=== PATIENT | female | born 1955 | race Caucasian/White ===

== ENCOUNTER → 2019-08-20 12:16 | Outpatient (BNVA) | payer MEDICARE, SELFPAY | PROVIDERS: Visit Provider Nurse Practitioner Family | DX: I48.91 Unspecified atrial fibrillation (principal) | CPT/HCPCS: 85610 ==

== ENCOUNTER → 2019-08-29 11:52 | Outpatient (BNVA) | payer MEDICARE, SELFPAY | PROVIDERS: Visit Provider Nurse Practitioner Family | DX: I10 Essential (primary) hypertension (principal); J32.9 Chronic sinusitis, unspecified; R53.1 Weakness; E78.5 Hyperlipidemia, unspecified; F32.9 Major depressive disorder, single episode, unspecified; I25.10 Atherosclerotic heart disease of native coronary artery without angina pectoris; I48.91 Unspecified atrial fibrillation; Z79.01 Long term (current) use of anticoagulants; Z12.31 Encounter for screening mammogram for malignant neoplasm of breast; Z12.11 Encounter for screening for malignant neoplasm of colon; Z98.61 Coronary angioplasty status; Z98.890 Other specified postprocedural states; Z79.899 Other long term (current) drug therapy | CPT/HCPCS: 80053; 80061; 83036; 85025; 87804; G0328 ==

== ENCOUNTER → 2019-09-20 16:18 | Outpatient (BNVA) | payer MEDICARE, SELFPAY | PROVIDERS: Visit Provider Nurse Practitioner Family | DX: R05 Cough (principal); R09.89 Other specified symptoms and signs involving the circulatory and respiratory systems | CPT/HCPCS: 71046; 85025; 87400 ==

== ENCOUNTER → 2019-10-09 10:35 | Outpatient (BNVA) | payer MEDICARE, SELFPAY | PROVIDERS: Visit Provider Internal Medicine Cardiovascular Disease | DX: Z98.890 Other specified postprocedural states (principal) | CPT/HCPCS: 85610 ==

== ENCOUNTER → 2019-12-18 16:40 | Outpatient (BNVA) | payer MEDICARE, SELFPAY | PROVIDERS: Visit Provider Internal Medicine Cardiovascular Disease | DX: I10 Essential (primary) hypertension (principal); I25.10 Atherosclerotic heart disease of native coronary artery without angina pectoris | CPT/HCPCS: 80048; 83880 ==

== ENCOUNTER 2019-12-23 15:24 | Emergency (ER) | payer MEDICARE, SELFPAY ==
--- NOTE | 2019-12-23 | CTR_ITS ---
PROCEDURE INFORMATION: Exam: CT Angiography Chest With Contrast Exam date and time: 12/23/2019 6:11 PM Age: 76 years old Clinical indication: Shortness of breath; Chest pain; Type not specified; Prior surgery; Surgery date: 6+ months TECHNIQUE: Imaging protocol: Computed tomographic angiography of the chest with intravenous contrast. 3D rendering: MIP and/or 3D reconstructed images were created by the technologist. Radiation optimization: All CT scans at this facility use at least one of these dose optimization techniques: automated exposure control; mA and/or kV adjustment per patient size (includes targeted exams where dose is matched to clinical indication); or iterative reconstruction. Contrast material: OMNI 350; Contrast volume: 67 ml; Contrast route: IV; COMPARISON: No relevant prior studies available. RADIATION DOSE METRICS: Total DLP: 531.58 mGy-cm FINDINGS: Pulmonary arteries: Normal. No pulmonary emboli. Aorta: Unremarkable. No aortic aneurysm. No aortic dissection. Lungs: Paraseptal emphysema. Fibrosis in the lung apices and bases. Mild focal ground-glass opacity in the posterior right upper lobe.. Pleural space: Unremarkable. No pneumothorax. No pleural effusion. Heart: Unremarkable. No cardiomegaly. No pericardial effusion. Lymph nodes: Prominent middle mediastinal and bilateral hilar lymph nodes. The largest lymph node measures 1.7 cm in short axis, in the AP window region. Bones/joints: Median sternotomy changes. Mild degenerative endplate changes in the thoracic spine. No compression fracture. Soft tissues: Unremarkable. Dictated By:Baldomero Morrison Signed By: Signed Date/Time: DD/ 1838 DANNY
[2019-12-23 15:51] VITALS: BP 102/73; PULSE 94; RESP 17; TEMP 36.7; O2SAT 95; BMI 23.3
--- NOTE | 2019-12-23 15:58 | ED_ITS ---
Documented by User: Dioni Montalvo DO 12/25/19 14:50 HPI - SOB/Dyspnea General: Chief Complaint: Shortness of Breath/Dyspnea Stated Complaint: swelling Time Seen by Provider: 12/23/19 15:57 History of Present Illness: HPI Narrative: 64 yo female comes in complaining of generally feeling weak. She has a history of CHF she recently had her Lasix increased to 40 mg daily to 60 twice daily then to 80 twice daily she has not really got a lot of fluid output from that and is still having out significant orthopnea. She had 5 days ago had some lab work done which she states was normal but since then she began having the chest discomfort a nonproductive chest cough with it markedly increasing and progressively worsening orthopnea. She denies any fever sweats or chills or any other respiratory symptoms besides the orthopnea and a nonproductive cough. She is on warfarin. She denies any hematemesis coffee-ground emesis nausea vomiting diarrhea GI or symptoms at all. MD elicited complaint: shortness of breath and cough Pertinent past history: congestive heart failure Onset (ago): day(s) Context: occurred during exertion Timing: constant Severity: moderate Exacerbating factors: lying flat, exertion and coughing Relieving factors: oxygen, rest and upright position Known history of: congestive heart failure Associated symptoms: Reports cough and orthopnea; Deny abdominal pain, chest congestion, chest pain, diaphoresis, dizziness, extremity pain, fever(s), hemoptysis, lightheadedness, myalgias, nausea, palpitations or rash Treatment prior to arrival: oxygen and diuretics Review of Systems Const: Denies: fever(s) or diaphoresis ENMT: Denies: throat pain, ear or mastoid pain, nasal discharge or nasal congestion Card: Reports: orthopnea; Denies: chest pain, palpitations or lightheadedness Resp: Denies: hemoptysis or chest congestion GI: Denies: abdominal pain or nausea : Denies: flank pain, difficulty voiding, dysuria, urinary frequency or urinary urgency Musc: Denies: extremity pain Skin/Breast: Denies: rash or pruritus Neuro: Denies: dizziness [facility] ED PFSH: Medical History ASHD (arteriosclerotic heart disease) CHF (congestive heart failure) Depression Hyperlipidemia Hypertension PVD (peripheral vascular disease) Surgical History Hx of coronary angioplasty Hx of mitral valve repair Family History Family/Other Diabetes Cancer Heart disease Social History Smoking and tobacco status: current some day smoker cigarettes Packs smoked per day: 0.5 Years cigarettes smoked: 40 Second hand smoke exposure: No Alcohol intake: never Lives independently: Yes Marital status: Current occupational status: retired History of recent travel: No Current gender identity: Female Physical Exam Const: COMMON NORMALS: no acute distress GENERAL APPEARANCE: cooperative and comfortable ORIENTATION/CONSCIOUSNESS: Yes awake, Yes oriented to person, Yes oriented to place and Yes oriented to time HENMT: COMMON NORMALS: normocephalic, atraumatic, hearing grossly normal bilaterally, external ears normal, EAC's normal, TM's normal bilaterally, Normal nasal mucous membranes and turbinates present, moist oral mucous membranes and oropharynx normal HEAD & SCALP: normocephalic and atraumatic NOSE: Normal nasal mucous membranes and turbinates present EXTERNAL EAR: Yes external ears normal EXTERNAL AUDITORY CANAL: EAC's normal TYMPANIC MEMBRANE: TM's normal bilaterally Eye: COMMON NORMALS: Equal, round and reactive pupils present, EOMs intact bilaterally, conjunctivae normal and no scleral icterus CONJUNCTIVA: Yes conjunctivae normal PUPIL: Yes Equal, round and reactive pupils present Neck/C-Spine: COMMON NORMALS: full ROM, no lymphadenopathy, supple and no JVD Lymph: LYMPHATIC: no lymphadenopathy noted and no lymphedema noted Resp: AUSCULTATION: rales bilateral and localized (Bases) and diminished lung sounds Cardio: COMMON NORMALS: no JVD, regular rate, regular rhythm and No murmurs present (Cardio) RATE: regular rate RHYTHM: regular rhythm GI: COMMON NORMALS: Soft to palpation and No hepatosplenomegaly present AUSCULTATION: Yes normoactive bowel sounds PALPATION: Yes Soft to palpation, No Tenderness to palpation present (GI), No Guarding due to palpation present (GI) and Yes No hepatosplenomegaly present Extremity: OTHER: Edema of the lower extremities to the mid calf Neuro: SENSORIUM/ORIENTATION: Yes oriented to person, Yes oriented to place and Yes oriented to time Skin: COMMON NORMALS: no rashes or lesions noted GENERAL SKIN EXAM: no rashes or lesions noted Course Vital Signs: Vital signs: Vital Signs Temperature 98.1 F 12/23/19 15:51 Pulse Rate 75 12/23/19 21:29 Respiratory Rate 18 12/23/19 21:29 Blood Pressure 118/75 12/23/19 21:29 Pulse Oximetry 95 12/23/19 21:29 MDM - SOB/Dyspnea MDM Narrative: Medical decision making narrative: Turned over to Dr. Sam at change of shift labs are all pending she seems to be had some mild acute heart failure although she does not seem to be hypoxic and seems to be managing well I think there is a distinct possibility she may yet be able to go home. Lab Data: Labs: Lab Results 12/23/19 12/23/19 12/23/19 Range/Units 16:37 16:37 16:37 WBC 6.2 (4.0-10.0) 10^3/ uL RBC 4.93 (4.1-5.3) 10^6/u L Hgb 15.4 H (11.5-15.3) g/dL Hct 47.8 H (37.0-47.0) % MCV 97.0 (81-99) fL MCH 31.2 (28.0-34.0) pg MCHC 32.2 (30.0-36.0) g/dL RDW 14.6 (12.1-15.1) % Plt Count 335 (130-400) 10^3/c mm MPV 10.4 (7.4-10.4) fL Neut % (Auto) 61.0 % Lymph % (Auto) 25.2 % Clarke % (Auto) 10.4 % Eos % (Auto) 2.1 % Baso % (Auto) 1.0 % Neut # (Auto) 3.8 (1.8-7.7) 10^3/u L Lymph # (Auto) 1.6 (0.8-4.8) 10^3/u L Clarke # (Auto) 0.6 (0.2-0.9) 10^3/u L Eos # (Auto) 0.1 (0.0-0.8) 10^3/u L Baso # (Auto) 0.1 (0.0-0.1) 10^3/u L Nucleated RBC % (a uto) 0 % Nucleated RBCs # 0.0 /100WBC Sodium 132 L (136-145) mmol/L Potassium 4.9 (3.5-5.1) mmol/L Chloride 95 L (98-107) mmol/L Carbon Dioxide 24 (22-29) mmol/L Anion Gap 17.9 (5-19) BUN 22 (8-23) mg/dL Creatinine 1.0 H (0.5-0.9) mg/dL GFR Calculation 55.5 L (90-130) mL/min Glucose 108 (65-115) mg/dL Calculated Osmolal ity 271 L (285-295) mOsm/k g Calcium 10.1 (8.5-10.5) mg/dL Total Bilirubin 0.2 (0.15-1.2) mg/dL AST 16 (0-32) U/L ALT 14 (0-33) U/L Alkaline Phosphata se 147 H (35-105) IU/L Troponin T Baselin e 20 H (0-10) ng/L Troponin T 120 Min [place] (0-10) ng/L Delta Troponin T (0-10) ABS# NT-Pro-B Natriuret Pep 731 H (0-125) pg/mL Total Protein 8.8 H (6.6-8.7) g/dL Albumin 4.2 (3.5-5.2) g/dL Globulin 4.6 (1.3-4.6) g/dL Urine Color (Yellow) Urine Appearance (CLEAR) Urine pH (5-7) Ur Specific Gravit y (1.005-1.030) Urine Protein (Negative) Urine Glucose (UA) (Normal) Urine Ketones (Negative) Urine Blood (Negative) Urine Nitrate (Negative) Urine Bilirubin (NEGATIVE) Urine Urobilinogen (Negative) mg/dL Ur Leukocyte Arin ase (Negative) Urine RBC (0-2) /hpf Urine WBC (0-5) /hpf Ur Squamous Epith Cells (0-5) Urine Bacteria (NONE) 12/23/19 12/23/19 Range/Units 18:30 20:10 WBC (4.0-10.0) 10^3/ uL RBC (4.1-5.3) 10^6/u L Hgb (11.5-15.3) g/dL Hct (37.0-47.0) % MCV (81-99) fL MCH (28.0-34.0) pg MCHC (30.0-36.0) g/dL RDW (12.1-15.1) % Plt Count (130-400) 10^3/c mm MPV (7.4-10.4) fL Neut % (Auto) % Lymph % (Auto) % Clarke % (Auto) % Eos % (Auto) % Baso % (Auto) % Neut # (Auto) (1.8-7.7) 10^3/u L Lymph # (Auto) (0.8-4.8) 10^3/u L Clarke # (Auto) (0.2-0.9) 10^3/u L Eos # (Auto) (0.0-0.8) 10^3/u L Baso # (Auto) (0.0-0.1) 10^3/u L Nucleated RBC % (a uto) % Nucleated RBCs # /100WBC Sodium (136-145) mmol/L Potassium (3.5-5.1) mmol/L Chloride (98-107) mmol/L Carbon Dioxide (22-29) mmol/L Anion Gap (5-19) BUN (8-23) mg/dL Creatinine (0.5-0.9) mg/dL GFR Calculation (90-130) mL/min Glucose (65-115) mg/dL Calculated Osmolal ity (285-295) mOsm/k g Calcium (8.5-10.5) mg/dL Total Bilirubin (0.15-1.2) mg/dL AST (0-32) U/L ALT (0-33) U/L Alkaline Phosphata se (35-105) IU/L Troponin T Baselin e (0-10) ng/L Troponin T 120 Min [place] 20.27 H (0-10) ng/L Delta Troponin T 0.27 (0-10) ABS# NT-Pro-B Natriuret Pep (0-125) pg/mL Total Protein (6.6-8.7) g/dL Albumin (3.5-5.2) g/dL Globulin (1.3-4.6) g/dL Urine Color Yellow (Yellow) Urine Appearance Clear (CLEAR) Urine pH 5 (5-7) Ur Specific Gravit y 1.010 (1.005-1.030) Urine Protein Neg (Negative) Urine Glucose (UA) Norm (Normal) Urine Ketones Negative (Negative) Urine Blood Neg (Negative) Urine Nitrate Positive H (Negative) Urine Bilirubin Neg (NEGATIVE) Urine Urobilinogen Norm (Negative) mg/dL Ur Leukocyte Arin ase Negative (Negative) Urine RBC 0-4 H (0-2) /hpf Urine WBC None (0-5) /hpf Ur Squamous Epith Cells 0-4 H (0-5) Urine Bacteria 4+ H (NONE) Discharge Plan Discharge Patient Disposition: Home, Self-Care Clinical Impression: Acute UTI CHF (congestive heart failure) Qualifiers: Heart failure type: diastolic Heart failure chronicity: acute on chronic Qualified Code(s): I50.33 - Acute on chronic diastolic (congestive) heart failure Condition: Stable Prescriptions: New cefdinir 300 mg capsule 300 mg PO Q12H 10 Days Qty: 20 RF: 0 No Action albuterol sulfate 2.5 mg /3 mL (0.083 %) solution for nebulization 2.5 mg INHALATION Q4H PRN (Reason: Shortness Of Breath) RF: 0 amiodarone 200 mg tablet 200 mg PO DAILY RF: 0 metoprolol succinate 25 mg tablet extended release 24 hr 25 mg PO DAILY RF: 0 nitroglycerin 0.4 mg tablet, sublingual 0.4 mg SUBLINGUAL Q5M PRN (Reason: chest pain) RF: 0 ascorbate calcium (vitamin C) 500 mg tablet 1 gm PO DAILY RF: 0 cn-0-axt-epa-fish oil-vit D3 [Fish Oil-Vit D3] 300-1,000-1,000 mg-mg-unit capsule 1 cap PO DAILY RF: 0 citalopram 10 mg tablet 10 mg PO DAILY Qty: 90 RF: 1 simvastatin 40 mg tablet 40 mg PO DAILY Qty: 30 RF: 2 lisinopril 10 mg tablet 10 mg PO DAILY Qty: 30 RF: 2 isosorbide mononitrate 30 mg tablet extended release 24 hr 30 mg PO DAILY Qty: 90 RF: 0 Spiriva Respimat 2.5 mcg/actuation mist 2 inh INHALATION DAILY Qty: 4 RF: 5 metolazone 2.5 mg tablet 2.5 mg PO DAILY Qty: 60 RF: 3 potassium chloride [Klor-Con M20] 20 mEq tablet,ER particles/crystals 40 meq PO BID Qty: 60 RF: 3 furosemide 80 mg tablet 80 mg PO BID Qty: 60 RF: 6 Tylenol Extra Strength 500 mg Tablet 1,000 mg PO PRN RF: 0 Calcium 500 500 mg calcium (1,250 mg) Tablet 500 mg PO DAILY RF: 0 ranolazine 500 mg tablet extended release 12 hr 500 mg PO Q12H RF: 0 warfarin 1 mg tablet See Rx Instructions .ROUTE .COMPLEX RF: 0 zolpidem 10 mg tablet 10 mg PO BEDTIME PRN (Reason: Sleep) RF: 0 Discharge Orders: Discharge Order (Routine); Ordered 12/23/19 Ordered By: Davina Contreras Referrals: Adelaida Rizo MD [Physician] - (Follow-up with Dr. Nuñez on as scheduled.) Discharge Diet: Advance as tolerated Discharge Activity: Increase activity as tolerated Patient Instructions: Heart Failure (ED), Urinary Tract Infection in Women (ED) Activity Restrictions/Additional Instructions: Please return to the ER immediately for any of the signs or symptoms listed on your discharge instruction sheets, worsening/changing of your symptoms, you are not getting better as quickly as expected, or for ANY other cause or concerns. Be certain to take the metolazone prescribed you by Dr. Rojas but take it every other day until you see him in the office for recheck. Return to the ER for chest pain, increased shortness of breath, fever, vomiting, or for any other cause for concern. Discharge Date/Time: 12/23/19 21:30 Sign Out Sign Out Data: Patient Sign Out occurred on 12/23/19 at 19:22. Patient's care was discussed, and care was transferred from to Davina Contreras. Coding Level of Care Code ED Staffing Administrator for [facility] Documented by User: Davina Contreras 12/24/19 01:48 HPI - SOB/Dyspnea General: Chief Complaint: Shortness of Breath/Dyspnea Stated Complaint: swelling Time Seen by Provider: 12/23/19 15:57 PFSH ED PFSH: Medical History ASHD (arteriosclerotic heart disease) CHF (congestive heart failure) Depression Hyperlipidemia Hypertension PVD (peripheral vascular disease) Surgical History Hx of coronary angioplasty Hx of mitral valve repair Family History Family/Other Diabetes Cancer Heart disease Social History Smoking and tobacco status: current some day smoker cigarettes Packs smoked per day: 0.5 Years cigarettes smoked: 40 Second hand smoke exposure: No Alcohol intake: never Lives independently: Yes Marital status: Current occupational status: retired History of recent travel: No Current gender identity: Female Course Vital Signs: Vital signs: Vital Signs Temperature 98.1 F 12/23/19 15:51 Pulse Rate 75 12/23/19 21:29 Respiratory Rate 18 12/23/19 21:29 Blood Pressure 118/75 12/23/19 21:29 Pulse Oximetry 95 12/23/19 21:29 MDM - SOB/Dyspnea MDM Narrative: Medical decision making narrative: Case turned over to me at change of shift from Dr. Montalvo. Please see his notes for his history, physical exam and medical decision-making notes. Patient states she is feeling better since arrival. She saw Dr. Rojas on 12/20/2019 and talked with him about this increasing shortness of breath. He increased her Lasix to 60 mg twice daily and she called a few days later and he increased it to 80 mg twice daily. He did: Metolazone but the patient has yet to pick it up. She denies any chest pain. I did offer admission but she declines. I talked the case over with Dr. Dalton who wants the patient to take the metolazone every other day and she will be certain the patient gets in to see Dr. Rojas this week. In review of this plan the patient admits that she has an appointment to see Dr. Rojas on . She is happy to be going home and we will also treat her for her UTI. She does agree to return should her symptoms change or worsen. Here the patient's lungs were clear without crackles and her heart was slightly irregular but no major murmurs were auscultated. Patient did not look to be in any kind of extremes and she was ready for discharge. Lab Data: Attestation: I reviewed the patient's lab results. Labs: Lab Results 12/23/19 12/23/19 12/23/19 Range/Units 16:37 16:37 16:37 WBC 6.2 (4.0-10.0) 10^3/ uL RBC 4.93 (4.1-5.3) 10^6/u L Hgb 15.4 H (11.5-15.3) g/dL Hct 47.8 H (37.0-47.0) % MCV 97.0 (81-99) fL MCH 31.2 (28.0-34.0) pg MCHC 32.2 (30.0-36.0) g/dL RDW 14.6 (12.1-15.1) % Plt Count 335 (130-400) 10^3/c mm MPV 10.4 (7.4-10.4) fL Neut % (Auto) 61.0 % Lymph % (Auto) 25.2 % Clarke % (Auto) 10.4 % Eos % (Auto) 2.1 % Baso % (Auto) 1.0 % Neut # (Auto) 3.8 (1.8-7.7) 10^3/u L Lymph # (Auto) 1.6 (0.8-4.8) 10^3/u L Clarke # (Auto) 0.6 (0.2-0.9) 10^3/u L Eos # (Auto) 0.1 (0.0-0.8) 10^3/u L Baso # (Auto) 0.1 (0.0-0.1) 10^3/u L Nucleated RBC % (a uto) 0 % Nucleated RBCs # 0.0 /100WBC Sodium 132 L (136-145) mmol/L Potassium 4.9 (3.5-5.1) mmol/L Chloride 95 L (98-107) mmol/L Carbon Dioxide 24 (22-29) mmol/L Anion Gap 17.9 (5-19) BUN 22 (8-23) mg/dL Creatinine 1.0 H (0.5-0.9) mg/dL GFR Calculation 55.5 L (90-130) mL/min Glucose 108 (65-115) mg/dL Calculated Osmolal ity 271 L (285-295) mOsm/k g Calcium 10.1 (8.5-10.5) mg/dL Total Bilirubin 0.2 (0.15-1.2) mg/dL AST 16 (0-32) U/L ALT 14 (0-33) U/L Alkaline Phosphata se 147 H (35-105) IU/L Troponin T Baselin e 20 H (0-10) ng/L Troponin T 120 Min [place] (0-10) ng/L Delta Troponin T (0-10) ABS# NT-Pro-B Natriuret Pep 731 H (0-125) pg/mL Total Protein 8.8 H (6.6-8.7) g/dL Albumin 4.2 (3.5-5.2) g/dL Globulin 4.6 (1.3-4.6) g/dL Urine Color (Yellow) Urine Appearance (CLEAR) Urine pH (5-7) Ur Specific Gravit y (1.005-1.030) Urine Protein (Negative) Urine Glucose (UA) (Normal) Urine Ketones (Negative) Urine Blood (Negative) Urine Nitrate (Negative) Urine Bilirubin (NEGATIVE) Urine Urobilinogen (Negative) mg/dL Ur Leukocyte Arin ase (Negative) Urine RBC (0-2) /hpf Urine WBC (0-5) /hpf Ur Squamous Epith Cells (0-5) Urine Bacteria (NONE) 12/23/19 12/23/19 Range/Units 18:30 20:10 WBC (4.0-10.0) 10^3/ uL RBC (4.1-5.3) 10^6/u L Hgb (11.5-15.3) g/dL Hct (37.0-47.0) % MCV (81-99) fL MCH (28.0-34.0) pg MCHC (30.0-36.0) g/dL RDW (12.1-15.1) % Plt Count (130-400) 10^3/c mm MPV (7.4-10.4) fL Neut % (Auto) % Lymph % (Auto) % Clarke % (Auto) % Eos % (Auto) % Baso % (Auto) % Neut # (Auto) (1.8-7.7) 10^3/u L Lymph # (Auto) (0.8-4.8) 10^3/u L Clarke # (Auto) (0.2-0.9) 10^3/u L Eos # (Auto) (0.0-0.8) 10^3/u L Baso # (Auto) (0.0-0.1) 10^3/u L Nucleated RBC % (a uto) % Nucleated RBCs # /100WBC Sodium (136-145) mmol/L Potassium (3.5-5.1) mmol/L Chloride (98-107) mmol/L Carbon Dioxide (22-29) mmol/L Anion Gap (5-19) BUN (8-23) mg/dL Creatinine (0.5-0.9) mg/dL GFR Calculation (90-130) mL/min Glucose (65-115) mg/dL Calculated Osmolal ity (285-295) mOsm/k g Calcium (8.5-10.5) mg/dL Total Bilirubin (0.15-1.2) mg/dL AST (0-32) U/L ALT (0-33) U/L Alkaline Phosphata se (35-105) IU/L Troponin T Baselin e (0-10) ng/L Troponin T 120 Min [place] 20.27 H (0-10) ng/L Delta Troponin T 0.27 (0-10) ABS# NT-Pro-B Natriuret Pep (0-125) pg/mL Total Protein (6.6-8.7) g/dL Albumin (3.5-5.2) g/dL Globulin (1.3-4.6) g/dL Urine Color Yellow (Yellow) Urine Appearance Clear (CLEAR) Urine pH 5 (5-7) Ur Specific Gravit y 1.010 (1.005-1.030) Urine Protein Neg (Negative) Urine Glucose (UA) Norm (Normal) Urine Ketones Negative (Negative) Urine Blood Neg (Negative) Urine Nitrate Positive H (Negative) Urine Bilirubin Neg (NEGATIVE) Urine Urobilinogen Norm (Negative) mg/dL Ur Leukocyte Arin ase Negative (Negative) Urine RBC 0-4 H (0-2) /hpf Urine WBC None (0-5) /hpf Ur Squamous Epith Cells 0-4 H (0-5) Urine Bacteria 4+ H (NONE) EKG Data^: EKG 1: Attestation: I personally reviewed and interpreted this EKG as follows: EKG Interpretation Date: 12/23/19 EKG interpretation time: 16:44 Interpretation: Atrial fibrillation with a ventricular rate of 87 beats a minute, left bundle branch block, unchanged from previous. EKG 2: Attestation: I personally reviewed and interpreted this EKG as follows: EKG Interpretation Date: 12/23/19 EKG interpretation time: 19:38 Interpretation: Atrial fibrillation with a ventricular rate of 75 beats a minute, left bundle branch block, unchanged from previous. Discharge Plan Discharge Patient Disposition: Home, Self-Care Clinical Impression: Acute UTI CHF (congestive heart failure) Qualifiers: Heart failure type: diastolic Heart failure chronicity: acute on chronic Qualified Code(s): I50.33 - Acute on chronic diastolic (congestive) heart failure Condition: Stable Prescriptions: New cefdinir 300 mg capsule 300 mg PO Q12H 10 Days Qty: 20 RF: 0 No Action albuterol sulfate 2.5 mg /3 mL (0.083 %) solution for nebulization 2.5 mg INHALATION Q4H PRN (Reason: Shortness Of Breath) RF: 0 amiodarone 200 mg tablet 200 mg PO DAILY RF: 0 metoprolol succinate 25 mg tablet extended release 24 hr 25 mg PO DAILY RF: 0 nitroglycerin 0.4 mg tablet, sublingual 0.4 mg SUBLINGUAL Q5M PRN (Reason: chest pain) RF: 0 ascorbate calcium (vitamin C) 500 mg tablet 1 gm PO DAILY RF: 0 kt-2-pff-epa-fish oil-vit D3 [Fish Oil-Vit D3] 300-1,000-1,000 mg-mg-unit capsule 1 cap PO DAILY RF: 0 citalopram 10 mg tablet 10 mg PO DAILY Qty: 90 RF: 1 simvastatin 40 mg tablet 40 mg PO DAILY Qty: 30 RF: 2 lisinopril 10 mg tablet 10 mg PO DAILY Qty: 30 RF: 2 isosorbide mononitrate 30 mg tablet extended release 24 hr 30 mg PO DAILY Qty: 90 RF: 0 Spiriva Respimat 2.5 mcg/actuation mist 2 inh INHALATION DAILY Qty: 4 RF: 5 metolazone 2.5 mg tablet 2.5 mg PO DAILY Qty: 60 RF: 3 potassium chloride [Klor-Con M20] 20 mEq tablet,ER particles/crystals 40 meq PO BID Qty: 60 RF: 3 furosemide 80 mg tablet 80 mg PO BID Qty: 60 RF: 6 Tylenol Extra Strength 500 mg Tablet 1,000 mg PO PRN RF: 0 Calcium 500 500 mg calcium (1,250 mg) Tablet 500 mg PO DAILY RF: 0 ranolazine 500 mg tablet extended release 12 hr 500 mg PO Q12H RF: 0 warfarin 1 mg tablet See Rx Instructions .ROUTE .COMPLEX RF: 0 zolpidem 10 mg tablet 10 mg PO BEDTIME PRN (Reason: Sleep) RF: 0 Discharge Orders: Discharge Order (Routine); Ordered 12/23/19 Ordered By: Davina Contreras Referrals: Adelaida Rizo MD [Physician] - (Follow-up with Dr. Nuñez on as scheduled.) Discharge Diet: Advance as tolerated Discharge Activity: Increase activity as tolerated Patient Instructions: Heart Failure (ED), Urinary Tract Infection in Women (ED) Activity Restrictions/Additional Instructions: Please return to the ER immediately for any of the signs or symptoms listed on your discharge instruction sheets, worsening/changing of your symptoms, you are not getting better as quickly as expected, or for ANY other cause or concerns. Be certain to take the metolazone prescribed you by Dr. Rojas but take it every other day until you see him in the office for recheck. Return to the ER for chest pain, increased shortness of breath, fever, vomiting, or for any other cause for concern. Discharge Date/Time: 12/23/19 21:30 Sign Out Sign Out Data: Patient Sign Out occurred on 12/23/19 at 19:22. Patient's care was discussed, and care was transferred from to Davina Contreras. Coding Level of Care Code ED Staffing Administrator for [place] Amaya
--- NOTE | 2019-12-23 16:10 | XR_ITS ---
WS: [id number] XR chest 1V portable [id number] REASON FOR EXAM: dyspnea/cough FINDINGS: Interstitial reaction the upper lungs bilaterally. The lung feliciano are mildly hypoaerated suggesting interstitial fibrosis. A stent is seen in the left subclavian artery. There is a mitral valve replacement. There is sternotomy changes. XR/XR chest 1V portable [id number] IMPRESSION: Mild interstitial fibrosis in the upper lungs.
--- NOTE | 2019-12-23 16:11 | ECG_ITS ---
Measurements Intervals [place] Rate: 87 P: DE: 0 QRS: -30 QRSD: 173 T: 110 QT: 405 QTc: 488 ATRIAL FIBRILLATION LEFT BUNDLE BRANCH BLOCK [120+ ms QRS DURATION, 80+ ms Q/S IN V1/V2, 85+ ms R IN I/aVL/V5/V6] Compared to ECG 05/28/2019 14:50:24 Sinus rhythm no longer present First degree AV block no longer present Electronically Signed On 12-23-2019 20:34:57 CDT by Neema Barillas M.D. [email or web address]
[2019-12-23 16:45] LABS: Basophils # 0.1 10^3/uL (0.0-0.1); Eosinophils # 0.1 10^3/uL (0.0-0.8); Eosinophils % 2.1 %; Hematocrit 47.8 % (37.0-47.0); Hemoglobin 15.4 g/dL (11.5-15.3); Lymphocytes # 1.6 10^3/uL (0.8-4.8); Lymphocytes % 25.2 %; Mean Corpuscular HGB Conc 32.2 g/dL (30.0-36.0); Mean Corpuscular Hemoglobin 31.2 pg (28.0-34.0); Mean Platelet Volume 10.4 fL (7.4-10.4); Monocytes # 0.6 10^3/uL (0.2-0.9); Monocytes % 10.4 %; Neutrophils # 3.8 10^3/uL (1.8-7.7); Nucleated Red Blood Cells % 0 %; Platelet Count 335 10^3/cmm (130-400); Red Blood Count 4.93 10^6/uL (4.1-5.3); Red Cell Distribution Width 14.6 % (12.1-15.1); White Blood Count 6.2 10^3/uL (4.0-10.0)
[2019-12-23 17:06] LABS: Alanine Aminotransferase 14 U/L (0-33); Albumin Level 4.2 g/dL (3.5-5.2); Alkaline Phosphatase 147 IU/L (35-105); Anion Gap 17.9 (5-19); Aspartate Amino Transferase 16 U/L (0-32); Blood Urea Nitrogen 22 mg/dL (8-23); Calcium 10.1 mg/dL (8.5-10.5); Carbon Dioxide 24 mmol/L (22-29); Chloride 95 mmol/L (98-107); Globulin 4.6 g/dL (1.3-4.6); Glomerular Filtration Rate 55.5 mL/min (90-130); Glucose 108 mg/dL (65-115); NT Pro B Type Natriuretic Pept 731 pg/mL (0-125); Osmolality Calculated 271 mOsm/kg (285-295); Potassium 4.9 mmol/L (3.5-5.1); Sodium 132 mmol/L (136-145); Total Bilirubin 0.2 mg/dL (0.15-1.2); Total Protein 8.8 g/dL (6.6-8.7)
[2019-12-23] MEDS: ondansetron 2 mg/ML SDV 2 mL 4 MG IVP (17:30)
[2019-12-23] MEDS: FUROsemide 10 mg/mL SDV 4mL 40 MG IVP (17:40)
[2019-12-23 18:18] LABS: Troponin(5th) Baseline 20 ng/L (0-10)
--- NOTE | 2019-12-23 18:20 | PC.NURSE ---
pt states that she is nauseated. Order for more meds from Dr. Montalvo placed and will be given when pt arrives back from [place]
[2019-12-23] MEDS: metoclopramide 5 mg/mL SDV 2 mL 10 MG IVP (18:26)
[2019-12-23 18:54] LABS: Troponin 5 2HR 20.27 ng/L (0-10); Troponin 5 2HR Delta 0.27 ABS# (0-10)
[2019-12-23] MEDS: iohexol 350 mg/mL 100 mL Btl IV (19:21)
[2019-12-23 20:35] LABS: Add Urine Microscopic? YES; Bilirubin Urine Neg (NEGATIVE); Blood Urine Neg (Negative); Glucose Urine UA Norm (Normal); Ketones Urine Negative (Negative); Leukocyte Esterase Urine Negative (Negative); Nitrate Urine Positive (Negative); Protein Urine Neg (Negative); Urine Appearance Clear (CLEAR); Urine Color Yellow (Yellow); Urobilinogen Urine Norm (Negative); pH Urine 5 (5-7)
[2019-12-23 20:36] LABS: Add Urine Culture? Yes; Bacteria Urine 4+; RBC Urine 0-4 /hpf (0-2); Squamous Epithelial Cell Urine 0-4 (0-5)
[2019-12-23 20:39] VITALS: BP 105/77; PULSE 72; PULSE 77; RESP 18; O2SAT 99
[2019-12-23 21:00] VITALS: BP 108/75; PULSE 92; RESP 14; O2SAT 94
[2019-12-23] MEDS: cefdinir 300 MG CAPSULE PO (21:10)
[2019-12-23 21:29] VITALS: BP 118/75; PULSE 75; RESP 18; O2SAT 95
--- NOTE | 2019-12-23 23:53 | ECG_ITS ---
Measurements Intervals [place] Rate: 75 P: MD: 0 QRS: -24 QRSD: 177 T: 115 QT: 445 QTc: 500 ATRIAL FIBRILLATION POSSIBLE RIGHT VENTRICULAR CONDUCTION DELAY [RSR (QR) IN V1/V2] LEFT BUNDLE BRANCH BLOCK [120+ ms QRS DURATION, 80+ ms Q/S IN V1/V2, 85+ ms R IN I/aVL/V5/V6] Compared to ECG 05/28/2019 14:50:24 Sinus rhythm no longer present First degree AV block no longer present Electronically Signed On 12-23-2019 20:38:04 CDT by Neema Barillas M.D. [id number]
--- NOTE | 2019-12-25 09:25 | DCPLANNER ---
physical therapist center manager had message to schedule a follow up appointment for patient with [facility]. physical therapist center manager called [facility], spoke with Kenyetta, gave clinic patients information. physical therapist center manager was told that patients information would be printed and reviewed. Clinic will call patient with appointment information.
--- NOTE | 2019-12-26 08:31 | DCPLANNER ---
Patient has a follow up appointment scheduled for , December 26, 2019 with Aisha at [facility], [place]. Clinic will call patient with appointment information.
--- NOTE | 2020-01-07 15:01 | DCPLANNER ---
Patient did attend appointment scheduled for 12.26.19 with [facility].
== END 2019-12-23 21:30 | disposition home or self-care (01) ==
PROVIDERS: Family Medicine; Emergency Provider Emergency Medicine
DX: I11.0 Hypertensive heart disease with heart failure (principal); I50.33 Acute on chronic diastolic (congestive) heart failure; N39.0 Urinary tract infection, site not specified; Z79.01 Long term (current) use of anticoagulants; E78.5 Hyperlipidemia, unspecified; I73.9 Peripheral vascular disease, unspecified; Z98.61 Coronary angioplasty status; F17.210 Nicotine dependence, cigarettes, uncomplicated
CPT/HCPCS: 12345; 36415; 71045; 71275; 80053; 81001; 83880; 84484; 85025; 87077; 87086; 87186; 93005; 96374; 96375; 99283; 99284; J1940; J2405; J2765; Q9967

== ENCOUNTER → 2019-12-26 10:59 | Outpatient (BNVA) | payer MEDICARE, SELFPAY | PROVIDERS: PCP Family Medicine; Visit Provider Nurse Practitioner Family | DX: I50.33 Acute on chronic diastolic (congestive) heart failure (principal); Z79.01 Long term (current) use of anticoagulants; Z98.890 Other specified postprocedural states; I48.92 Unspecified atrial flutter | CPT/HCPCS: 85610 ==

== ENCOUNTER → 2019-12-31 14:00 | Outpatient (BNVA) | payer MEDICARE, SELFPAY | PROVIDERS: PCP Family Medicine; Visit Provider Nurse Practitioner Family | DX: R53.1 Weakness (principal); I50.33 Acute on chronic diastolic (congestive) heart failure; R42 Dizziness and giddiness | CPT/HCPCS: 80053; 81003; 85025 ==

== ENCOUNTER 2020-01-16 08:31 | Outpatient (CLI) | payer MEDICARE, SELFPAY ==
--- NOTE | 2020-01-16 08:45 | USCV_ITS ---
Clementina Mcghee Age: 64 Gender: F : 1955 Exam Date: 01/16/2020 08:49 Ordering Phys: Aisha Benites Technologist: Roxy Whitt Exam Location: [facility] Indication: CHF BP: / HR: 112 Rhythm: Sinus Technical Quality: Good MEASUREMENTS (Male / Female) Normal Values 2D ECHO LV Diastolic Diameter PLAX 4.6 cm 4.2 - 5.9 / 3.9 - 5.3 cm LV Systolic Diameter PLAX 4.0 cm IVS Diastolic Thickness 1.3 cm 0.6 - 1.0 / 0.6 - 0.9 cm IVS Systolic Thickness 1.5 cm LVPW Diastolic Thickness 0.9 cm 0.6 - 1.0 / 0.6 - 0.9 cm LVPW Systolic Thickness 0.8 cm LVOT Diameter 2.0 cm LV Ejection Fraction 2D Teich 28.8 % LV Ejection Fraction MOD 2C 51.5 % LV Ejection Fraction 2C AL 51.6 % LA Diameter 3.5 cm LA Width 3.5 cm LA Height 5.1 cm RA Width 2.8 cm RA Height 3.0 cm M-MODE LV Diastolic Diameter MM 5.2 cm 4.2 - 5.9 / 3.9 - 5.3 cm LV Systolic Diameter MM 5.0 cm LV Ejection Fraction MM Teich 8.3 % IVS Diastolic Thickness MM 1.0 cm 0.6 - 1.0 / 0.6 - 0.9 cm IVS Systolic Thickness MM 1.1 cm LVPW Diastolic Thickness MM 1.1 cm 0.6 - 1.0 / 0.6 - 0.9 cm LVPW Systolic Thickness MM 1.6 cm Aortic Annulus Diameter 2.9 cm LA Ao Ratio MM 1.2 MV E Point Septal Separation 0.9 cm DOPPLER AV Peak Velocity 117.0 cm/s LVOT Peak Velocity 101.0 cm/s AV Area Cont Eq vti 2.4 cm squared AV Area Cont Eq pk 2.7 cm squared MV Peak Velocity 109.0 cm/s MV Area PHT 2.2 cm squared Mitral E to A Ratio 3.7 MV E' Velocity 7.0 cm/s Mitral E to MV E' Ratio 19.3 Mitral E to LV E' Lateral Ratio 15.6 Mitral E to LV E' Septal Ratio 25.5 TR Peak Velocity 249.0 cm/s TR Peak Gradient 24.8 mmHg Right Atrial Pressure 3.0 mmHg Pulmonary Artery Systolic Pressu 27.8 mmHg PV Peak Velocity 110.0 cm/s RV Acceleration Time 0.1 s FINDINGS Left Ventricle Moderately increased left ventricular cavity size. Severely decreased left ventricular systolic function. Global left ventricular hypokinesis. Left ventricular ejection fraction is estimated at 28 %. Due to atrial fibrillation diastolic function cannot be assessed accurately. Right Ventricle The right ventricle is normal in size and function. Right Atrium The right atrium is normal in size. Left Atrium Moderately increased left atrial size. Mitral Valve Severely thickened mitral valve. Severe mitral annular calcification. No mitral valve stenosis. Moderate to severe mitral valve regurgitation. Aortic Valve Severe aortic valve calcification. Mild aortic valve stenosis, mean gradient 2.5 mmHg, JIMMY 2.4 cm squared. Moderate aortic valve regurgitation. Tricuspid Valve Moderate tricuspid valve regurgitation. Pulmonic Valve Structurally normal pulmonic valve without significant stenosis. There is no pulmonic regurgitation. Pericardium Normal pericardium without effusion. Aorta Normal ascending aorta dimension. CONCLUSIONS 1-Moderately increased left ventricular cavity size. Severely decreased left ventricular systolic function. Global left ventricular hypokinesis. Left ventricular ejection fraction is estimated at 28 %. Due to atrial fibrillation diastolic function cannot be assessed accurately. 2-Moderately increased left atrial size. 3-Severely thickened mitral valve. Severe mitral annular calcification. No mitral valve stenosis. Moderate to severe mitral valve regurgitation. 4-Severe aortic valve calcification. Mild aortic valve stenosis, mean gradient 2.5 mmHg, JIMMY 2.4 cm squared. Moderate aortic valve regurgitation. 5-Moderate tricuspid valve regurgitation. 6-Pulmonary artery systolic pressure is within normal limits. 7-Right atrial pressure is around 5 mm of mercury. 8-No significant change since the prior echocardiogram study of 02/26/2018. Adelaida Rizo MD (Electronically Signed) Final Date: 16 January 2020 18:06 S
== END 2020-01-16 08:32 | disposition home or self-care (01) ==
PROVIDERS: PCP Family Medicine; Visit Provider Nurse Practitioner Family
DX: I50.9 Heart failure, unspecified (principal); I08.3 Combined rheumatic disorders of mitral, aortic and tricuspid valves
CPT/HCPCS: 93306

== ENCOUNTER → 2020-03-06 10:58 | Outpatient (BNVA) | payer MEDICARE, SELFPAY | PROVIDERS: PCP Family Medicine; Visit Provider Nurse Practitioner Family | DX: Z79.01 Long term (current) use of anticoagulants (principal); I50.33 Acute on chronic diastolic (congestive) heart failure; G47.00 Insomnia, unspecified; F32.9 Major depressive disorder, single episode, unspecified; F17.210 Nicotine dependence, cigarettes, uncomplicated; Z71.89 Other specified counseling | CPT/HCPCS: 85610 ==

== ENCOUNTER → 2020-03-18 14:07 | Outpatient (BNVA) | payer MEDICARE, SELFPAY | PROVIDERS: PCP Family Medicine | DX: Z79.01 Long term (current) use of anticoagulants (principal) | CPT/HCPCS: 85610 ==

== ENCOUNTER → 2020-04-02 13:45 | Outpatient (BNVA) | payer MEDICARE, SELFPAY | PROVIDERS: PCP Family Medicine; Visit Provider Nurse Practitioner Family | DX: Z79.01 Long term (current) use of anticoagulants (principal) | CPT/HCPCS: 85610 ==

== ENCOUNTER → 2020-05-06 15:58 | Outpatient (BNVA) | payer MEDICARE, SELFPAY | PROVIDERS: PCP Family Medicine; Visit Provider Nurse Practitioner Family | DX: Z79.01 Long term (current) use of anticoagulants (principal) | CPT/HCPCS: 85610 ==

== ENCOUNTER → 2020-05-12 10:18 | Outpatient (BNVA) | payer MEDICARE, SELFPAY | PROVIDERS: PCP Nurse Practitioner Family; Visit Provider Nurse Practitioner Family | DX: Z79.01 Long term (current) use of anticoagulants (principal) | CPT/HCPCS: 85610 ==

== ENCOUNTER → 2020-05-28 10:45 | Outpatient (BNVA) | payer MEDICARE, SELFPAY | PROVIDERS: PCP Nurse Practitioner Family; Visit Provider Nurse Practitioner Family | DX: L03.114 Cellulitis of left upper limb (principal) | CPT/HCPCS: 73130; 80053; 84550; 85025; 85651; 86140 ==

== ENCOUNTER → 2020-06-08 11:17 | Outpatient (BNVA) | payer MEDICARE, SELFPAY | PROVIDERS: PCP Nurse Practitioner Family; Visit Provider Nurse Practitioner Family | DX: M79.642 Pain in left hand (principal); L03.114 Cellulitis of left upper limb | CPT/HCPCS: 84550; 85651; 86038; 86140; 86431 ==

== ENCOUNTER 2020-06-23 12:08 | Emergency (ER) | payer MEDICARE, SELFPAY ==
[2020-06-23 12:20] VITALS: BP 113/84; PULSE 114; RESP 18; TEMP 36.7; O2SAT 96; BMI 23.3
--- NOTE | 2020-06-23 13:00 | XR_ITS ---
WS: [id number] XR chest 1V portable [id number] REASON FOR EXAM: dyspnea/cough FINDINGS: The chest appears unchanged compared to previous examination of 12/23/2019. Chronic reticular intersti tial changes in the lung bases. Coarse reticular interstitial changes in the upper lungs with cystic change. Normal thoracic aorta. Stent in the origin of the left subclavian artery. Prosthetic heart valve. Mil d cardiomegaly. Bony thorax is intact. XR/XR chest 1V portable [id number] IMPRESSION: Stable abnormal chest with no acute abnormality identified.
[2020-06-23 13:08] LABS: Basophils % 0.4 %; Eosinophils # 0.2 10^3/uL (0.0-0.8); Hematocrit 37.6 % (37.0-47.0); Hemoglobin 12.3 g/dL (11.5-15.3); Lymphocytes # 0.9 10^3/uL (0.8-4.8); Lymphocytes % 9.6 %; Mean Corpuscular HGB Conc 32.7 g/dL (30.0-36.0); Mean Corpuscular Hemoglobin 32.4 pg (28.0-34.0); Mean Corpuscular Volume 98.9 fL (81-99); Mean Platelet Volume 10.2 fL (7.4-10.4); Monocytes % 11.5 %; Neutrophils # 6.74 10^3/uL (1.8-7.7); Neutrophils % 75.6 %; Nucleated Red Blood Cells % 0 %; Platelet Count 251 10^3/cmm (130-400); Red Cell Distribution Width 14.6 % (12.1-15.1); White Blood Count 8.9 10^3/uL (4.0-10.0)
--- NOTE | 2020-06-23 13:08 | CT_ITS ---
WS: [id number] CT abdomen pelvis w con* [id number] REASON FOR EXAM: abd pain IV CONTRAST ADMINISTERED: 25 mL of Omnipaque 300. TOTAL EXAM DLP: 446.[address] scans at [facility] use at least one of these dose optimization techniques: automat ed exposure control; mA and/or kV adjustment per patient size (includes targeted exams where dose is matched to clinical indication); or iterative reconstruction. FINDINGS: ABDOMEN: There is interstitial and cystic changes within the left lung base. Compared to the previous examinat ion of 01/03/2018 there is groundglass density in the parenchyma of the lower left lung with a small f ocus of consolidation. Hepatomegaly with relatively homogeneous enhancement pattern of the liver and no focal lesions. There does not appear to be significant fatty infiltration. The spleen is normal. The pancreas is within normal limits. A tiny calculus is identified in the gallbladder. There is a ga llbladder polyp. The adrenal glands are within normal limits. Small cyst in the left kidney. No mass, adenopathy, free fluid, or focal fluid collection. Moderate calcified plaque in the abdominal aorta with no aneurysmal dilatation. Major sidebranches de monstrate minimal narrowing. No definite bowel abnormality. PELVIS: Urinary bladder is unremarkable No mass, adenopathy, free fluid, or focal fluid collection. Mild degenerative spondylosis in the lower segments of the lumbar spine with no focal bone lesion. Mild degenerative changes in the hip joints with no other significant bony pelvic abnormality. CT/CT abdomen pelvis w con* [id number] IMPRESSION: The abnormalities seen in the left lung base could represent an acute pneumonit is. (Covid). Hepatomegaly was present on previous examination of 01/03/2018. Gallbladder poly p was likely present at that time. The tiny calculus was not identified.
--- NOTE | 2020-06-23 13:10 | W.ED.ABDPA2 ---
HPI - Abdominal Pain General: Chief Complaint: Abdominal Pain Stated Complaint: diarrhea/weakness Time Seen by Provider: 06/23/20 12:26 History of Present Illness: HPI narrative: 65-year-old female presents emergency room with vague abdominal pain she says began about a week ago she had accompanying diarrhea generalized myalgias and nausea as well. She was on antibiotics after she got bit by a squirrel it looks like her last antibiotic prescription was for Bactrim. She has a little bit of cough and shortness of breath. He was also on some prednisone which she quit stopped just a few days ago. MD elicited complaint: abdominal pain Pertinent past history: other (Recent antibiotics) Onset (ago): week(s) Pain Consistency: intermittent Location: Periumbilical Severity: moderate Quality: cramping Radiation: none Migration to: no migration Exacerbating factors: nothing Relieving factors: nothing Associated Symptoms: Reports change in stool character, GI cramping and diarrhea; Denies anorexia, belching, bloating, change in bowel habits, chills, coffee ground emesis, constipation, dyspepsia, dysuria, excessive flatus, fever(s), heartburn, hematochezia, hematuria, hematemesis, fecal incontinence, loose stools, melena, nausea, poor appetite, syncope and vomiting Review of Systems Const: Denies: fever(s) or chills ENMT: Denies: throat pain, ear or mastoid pain, nasal discharge or nasal congestion Card: Denies: syncope Resp: Denies: dyspnea, productive cough or non-productive cough GI: Reports: diarrhea, GI cramping and change in stool character; Denies: nausea, vomiting, hematemesis, coffee ground emesis, heartburn, constipation, bloating, belching, excessive flatus, fecal incontinence, change in bowel habits, hematochezia or melena : Denies: dysuria or hematuria Skin/Breast: Denies: rash or pruritus PFSH ED PFSH: Medical History (Updated 06/23/20 @ 16:33 by Dioni Montalvo DO) Anticoagulated on warfarin ASHD (arteriosclerotic heart disease) Atrial flutter CHF (congestive heart failure) Depression Hyperlipidemia Hypertension Osteoporosis PVD (peripheral vascular disease) Surgical History Hx of coronary angioplasty Hx of hysterectomy Hx of mitral valve repair Hx of sinus surgery Hx of tonsillectomy Family History Family/Other Diabetes Cancer Heart disease Social History Smoking and tobacco status: current some day smoker cigarettes Packs smoked per day: 0.5 Years cigarettes smoked: 40 Second hand smoke exposure: No Alcohol intake: never Lives independently: Yes Marital status: Current occupational status: retired History of recent travel: No Current gender identity: Female Physical Exam Const: COMMON NORMALS: no acute distress GENERAL APPEARANCE: cooperative and comfortable ORIENTATION/CONSCIOUSNESS: Yes awake, Yes oriented to person, Yes oriented to place and Yes oriented to time HENMT: COMMON NORMALS: normocephalic, atraumatic and hearing grossly normal bilaterally HEAD & SCALP: normocephalic and atraumatic Eye: COMMON NORMALS: Equal, round and reactive pupils present, EOMs intact bilaterally, conjunctivae normal and no scleral icterus CONJUNCTIVA: Yes conjunctivae normal PUPIL: Yes Equal, round and reactive pupils present Neck/C-Spine: COMMON NORMALS: full ROM, no lymphadenopathy, supple and no JVD Lymph: LYMPHATIC: no lymphadenopathy noted and no lymphedema noted Resp: COMMON NORMALS: normal respiratory effort, No retractions, No use of accessory muscles and clear to auscultation bilaterally AUSCULTATION: clear to auscultation bilaterally Cardio: COMMON NORMALS: no JVD, regular rate, regular rhythm and No murmurs present (Cardio) RATE: regular rate RHYTHM: regular rhythm GI: COMMON NORMALS: No hepatosplenomegaly present AUSCULTATION: Yes normoactive bowel sounds PALPATION: Yes Tenderness to palpation present (GI) (Generalized periumbilical discomfort), No Guarding due to palpation present (GI) and Yes No hepatosplenomegaly present Extremity: COMMON NORMALS: normal to inspection, capillary refill normal, no clubbing, cyanosis or edema, no calf tenderness and no pedal edema Neuro: SENSORIUM/ORIENTATION: Yes oriented to person, Yes oriented to place and Yes oriented to time Skin: COMMON NORMALS: no rashes or lesions noted GENERAL SKIN EXAM: no rashes or lesions noted Course Vital Signs: Vital signs: Vital Signs Temperature 98.1 F 06/23/20 12:20 Pulse Rate 114 H 06/23/20 12:20 Respiratory Rate 18 06/23/20 12:20 Blood Pressure 113/84 06/23/20 12:20 Pulse Oximetry 96 06/23/20 12:20 MDM - Abdominal Pain MDM Narrative: Medical decision making narrative: Reviewed findings with the patient. She still has lot of myalgias and generalized back ache and discomfort. But is more generalized she does not really have true CVA tenderness. Her white count is normal good can treat her as an outpatient for her cystitis I still am highly suspicious she may have Covid we have an outstanding PCR test recommend that she was self quarantine until that is resulted gave her Cipro to take as an outpatient as well as as needed Zofran Lab Data: Labs: Lab Results 06/23/20 06/23/20 06/23/20 Range/Units 12:55 12:55 12:55 WBC 8.9 (4.0-10.0) 10^3/ uL RBC 3.80 L (4.1-5.3) 10^6/u L Hgb 12.3 (11.5-15.3) g/dL Hct 37.6 (37.0-47.0) % MCV 98.9 (81-99) fL MCH 32.4 (28.0-34.0) pg MCHC 32.7 (30.0-36.0) g/dL RDW 14.6 (12.1-15.1) % Plt Count 251 (130-400) 10^3/c mm MPV 10.2 (7.4-10.4) fL Neut % (Auto) 75.6 % Lymph % (Auto) 9.6 % [place] % (Auto) 11.5 % Eos % (Auto) 2.0 % Baso % (Auto) 0.4 % Neut # (Auto) 6.74 (1.8-7.7) 10^3/u L Lymph # (Auto) 0.9 (0.8-4.8) 10^3/u L [place] # (Auto) 1.0 H (0.2-0.9) 10^3/u L Eos # (Auto) 0.2 (0.0-0.8) 10^3/u L Baso # (Auto) 0.0 (0.0-0.1) 10^3/u L Nucleated RBC % (a uto) 0 % Nucleated RBCs # 0.0 /100WBC PT 31.10 H (12.1-14.9) SECO NDS INR 2.86 H (0.8-1.2) D-Dimer 0.79 H (0-0.59) ug/mIFE U Sodium 135 L (136-145) mmol/L Potassium 5.1 (3.5-5.1) mmol/L Chloride 101 (98-107) mmol/L Carbon Dioxide 25 (22-29) mmol/L Anion Gap 14.1 (5-19) BUN 16 (8-23) mg/dL Creatinine 0.8 (0.5-0.9) mg/dL GFR Calculation 71.5 L (90-130) mL/min Glucose 98 (65-115) mg/dL Calculated Osmolal ity 281 L (285-295) mOsm/k g Calcium 9.6 (8.5-10.5) mg/dL Total Bilirubin 0.2 (0.15-1.2) mg/dL AST 26 (0-32) U/L ALT 27 (0-33) U/L Alkaline Phosphata se 121 H (35-105) IU/L Creatine Kinase 17 L (26-192) U/L Total Protein 7.7 (6.6-8.7) g/dL Albumin 3.3 L (3.5-5.2) g/dL Globulin 4.4 (1.3-4.6) g/dL Lipase 29 (13-60) U/L Urine Color (Yellow) Urine Appearance (CLEAR) Urine pH (5-7) Ur Specific Gravit y (1.005-1.030) Urine Protein (Negative) Urine Glucose (UA) (Normal) Urine Ketones (Negative) Urine Blood (Negative) Urine Nitrate (Negative) Urine Bilirubin (Negative) Urine Urobilinogen (Negative) mg/dL Ur Leukocyte Rain ase (Negative) Urine RBC (0-2) /hpf Urine WBC (0-5) /hpf Ur Squamous Epith Cells (0-5) /hpf Amorphous Sediment Urine Bacteria (NONE) /hpf SARS-CoV-2 Ag (Rap id) (Negative) 06/23/20 06/23/20 Range/Units 13:29 13:35 WBC (4.0-10.0) 10^3/ uL RBC (4.1-5.3) 10^6/u L Hgb (11.5-15.3) g/dL Hct (37.0-47.0) % MCV (81-99) fL MCH (28.0-34.0) pg MCHC (30.0-36.0) g/dL RDW (12.1-15.1) % Plt Count (130-400) 10^3/c mm MPV (7.4-10.4) fL Neut % (Auto) % Lymph % (Auto) % [place] % (Auto) % Eos % (Auto) % Baso % (Auto) % Neut # (Auto) (1.8-7.7) 10^3/u L Lymph # (Auto) (0.8-4.8) 10^3/u L [place] # (Auto) (0.2-0.9) 10^3/u L Eos # (Auto) (0.0-0.8) 10^3/u L Baso # (Auto) (0.0-0.1) 10^3/u L Nucleated RBC % (a uto) % Nucleated RBCs # /100WBC PT (12.1-14.9) SECO NDS INR (0.8-1.2) D-Dimer (0-0.59) ug/mIFE U Sodium (136-145) mmol/L Potassium (3.5-5.1) mmol/L Chloride (98-107) mmol/L Carbon Dioxide (22-29) mmol/L Anion Gap (5-19) BUN (8-23) mg/dL Creatinine (0.5-0.9) mg/dL GFR Calculation (90-130) mL/min Glucose (65-115) mg/dL Calculated Osmolal ity (285-295) mOsm/k g Calcium (8.5-10.5) mg/dL Total Bilirubin (0.15-1.2) mg/dL AST (0-32) U/L ALT (0-33) U/L Alkaline Phosphata se (35-105) IU/L Creatine Kinase (26-192) U/L Total Protein (6.6-8.7) g/dL Albumin (3.5-5.2) g/dL Globulin (1.3-4.6) g/dL Lipase (13-60) U/L Urine Color Yellow (Yellow) Urine Appearance Cloudy (CLEAR) Urine pH 5.0 (5-7) Ur Specific Gravit y 1.020 (1.005-1.030) Urine Protein Neg (Negative) Urine Glucose (UA) Norm (Normal) Urine Ketones Negative (Negative) Urine Blood 3+ H (Negative) Urine Nitrate Positive H (Negative) Urine Bilirubin Neg (Negative) Urine Urobilinogen Norm (Negative) mg/dL Ur Leukocyte Arin ase 2+ H (Negative) Urine RBC 15-25 H (0-2) /hpf Urine WBC 55-80 H (0-5) /hpf Ur Squamous Epith Cells 10-15 H (0-5) /hpf Amorphous Sediment Not Reportable Urine Bacteria 3+ H (NONE) /hpf SARS-CoV-2 Ag (Rap id) Negative (Negative) Discharge Plan Discharge Patient Disposition: Home Clinical Impression: Cystitis Condition: Stable Prescriptions: New Cipro 500 mg tablet 500 mg PO BID 7 Days Qty: 14 RF: 0 Zofran 4 mg tablet 4 mg PO Q6H PRN (Reason: nausea and vomiting) Qty: 20 RF: 0 No Action albuterol sulfate 2.5 mg /3 mL (0.083 %) solution for nebulization 2.5 mg INHALATION Q4H PRN (Reason: Shortness Of Breath) RF: 0 ascorbate calcium (vitamin C) 500 mg tablet 1 gm PO DAILY PRN (Reason: unknown) RF: 0 Spiriva Respimat 2.5 mcg/actuation mist 2 inh INHALATION DAILY 90 Days Qty: 4 RF: 1 promethazine 25 mg tablet 25 mg PO Q6H PRN (Reason: nausea and vomiting) Qty: 30 RF: 1 nitroglycerin 0.4 mg tablet, sublingual 0.4 mg SUBLINGUAL Q5M PRN (Reason: chest pain) Qty: 30 RF: 0 tramadol 50 mg tablet 50 mg PO TID PRN (Reason: pain) Qty: 30 RF: 0 (DME) MD INR See Rx Instructions .Route .MEDSUPPLY Qty: 1 RF: 0 ranolazine 500 mg tablet extended release 12 hr 500 mg PO Q12H Qty: 180 RF: 1 acetaminophen [Tylenol Extra Strength] 500 mg Tablet 1,000 mg PO PRN RF: 0 calcium carbonate [Calcium 500] 500 mg calcium (1,250 mg) Tablet 500 mg PO DAILY PRN (Reason: unknown) RF: 0 warfarin 3 mg Tablet 3 mg PO DAILY@19 RF: 0 ProAir HFA 90 mcg/actuation Hfa Aerosol Inhaler 2 puff INHALATION Q4H PRN (Reason: Shortness Of Breath) RF: 0 furosemide 40 mg tablet 40 - 60 mg PO DAILY@07 RF: 0 Pacerone 200 mg tablet 200 mg PO DAILY@07 RF: 0 citalopram 10 mg tablet 10 mg PO DAILY@19 RF: 0 isosorbide mononitrate 30 mg tablet extended release 24 hr 30 mg PO DAILY@07 RF: 0 simvastatin 40 mg tablet 40 mg PO DAILY@19 RF: 0 Klor-Con M20 20 mEq tablet,ER particles/crystals 40 meq PO DAILY@07 RF: 0 lisinopril 10 mg tablet 10 mg PO DAILY@07 RF: 0 metoprolol succinate 25 mg tablet extended release 24 hr 25 mg PO DAILY@07 RF: 0 zolpidem 10 mg tablet 10 mg PO DAILY@19 PRN (Reason: Sleep) RF: 0 Discharge Orders: Discharge ED (Routine); Ordered 06/23/20 Ordered By: Dioni Montalvo Referrals: Abimbola Chatterjee FNP [Primary Care Provider] - Activity Restrictions/Additional Instructions: You were screened for COVID-19 today. There is an outstanding test we recommend that you remain self quarantine until that is resulted. You are also given antibiotics for bladder infection. Follow-up with your primary care doctor if not improving the next 4 to 5 days. He will be contacted the results of your COVID-19 test. Coding Level of Care Code ED Batch Analyst for [place] [facility] Exam Comprehensive
[2020-06-23 13:32] LABS: Alanine Aminotransferase 27 U/L (0-33); Albumin Level 3.3 g/dL (3.5-5.2); Alkaline Phosphatase 121 IU/L (35-105); Anion Gap 14.1 (5-19); Aspartate Amino Transferase 26 U/L (0-32); Blood Urea Nitrogen 16 mg/dL (8-23); Calcium 9.6 mg/dL (8.5-10.5); Carbon Dioxide 25 mmol/L (22-29); Chloride 101 mmol/L (98-107); Globulin 4.4 g/dL (1.3-4.6); Glomerular Filtration Rate 71.5 mL/min (90-130); Glucose 98 mg/dL (65-115); Osmolality Calculated 281 mOsm/kg (285-295); Potassium 5.1 mmol/L (3.5-5.1); Sodium 135 mmol/L (136-145); Total Bilirubin 0.2 mg/dL (0.15-1.2); Total Protein 7.7 g/dL (6.6-8.7)
[2020-06-23 13:51] LABS: INR 2.86 (0.8-1.2)
[2020-06-23 13:53] LABS: D Dimer 0.79 ug/mIFEU (0-0.59)
[2020-06-23] MEDS: iohexol 300 mg/mL 100 mL Btl IV (13:53)
[2020-06-23 14:10] LABS: SARS Covid-2 Antigen Negative (Negative)
[2020-06-23 14:17] LABS: Creatine Phosphokinase 17 U/L (26-192); Lipase 29 U/L (13-60)
[2020-06-23 14:45] LABS: Add Urine Microscopic? YES; Bilirubin Urine Neg (Negative); Blood Urine 3+ (Negative); Glucose Urine UA Norm (Normal); Ketones Urine Negative (Negative); Leukocyte Esterase Urine 2+ (Negative); Nitrate Urine Positive (Negative); Protein Urine Neg (Negative); Urine Appearance Cloudy (CLEAR); Urine Color Yellow (Yellow); Urobilinogen Urine Norm (Negative)
[2020-06-23 14:46] LABS: Add Urine Culture? Yes; Bacteria Urine 3+ /hpf; RBC Urine 15-25 /hpf (0-2); WBC Urine 55-80 /hpf (0-5)
--- NOTE | 2020-06-23 14:58 | CT_ITS ---
WS: [id number] CT angio chest PE protcl [id number] REASON FOR EXAM: COVID TECHNIQUE: Coronal and sagittal 2-D and MIP reformations. IV CONTRAST ADMINISTERED: 67 mL Omnipaque 350. TOTAL EXAM DLP: 545.[address] scans at [facility] use at least one of these dose optimization techniques: automat ed exposure control; mA and/or kV adjustment per patient size (includes targeted exams where dose is matched to clinical indication); or iterative reconstruction. FINDINGS: There are no pulmonary emboli. No mediastinal mass or adenopathy. There are multiple areas of irregular thickened interlobular septae with extensive cystic change and associated groundglass density. These regions predominate in the subpleural regions within the upper and lower lobes. The left lung appears more severely affected. The findings are more prominent with i ncreased groundglass density and more thickening of septations, especially in the left lower lobe, or compared to previous examination of 12/23/2019. There is a focal irregular nodule in the posterior left upper lung which is unchanged compared to the previous examination. No pleural effusions. CT/CT angio chest PE protcl [id number] IMPRESSION: No pulmonary emboli are identified. There is more apparent groundglass density in the lungs than on the previous ex amination most notably in the left lower lobe. However, this appears to be prog ression of the patient's underlying lung disease rather than an acute process. No definite focal acute lung changes identified.
[2020-06-23] MEDS: HYDROcodone-acetaminophen 5-325 mg Tablet 1 TAB PO (16:40)
[2020-06-23] MEDS: cefTRIAXone 1,000 MG in sodium chloride 0.9% (plus) 50 ML 100 MG IV (16:41)
[2020-06-23 17:22] VITALS: BP 120/65; PULSE 82; RESP 18; O2SAT 100
[2020-06-25 07:54] LABS: Coronavirus Lab Test PTC Negative
--- NOTE | 2020-06-25 08:21 | PC.NURSE ---
Pt called and notified of negative COVID result.
== END 2020-06-23 17:20 | disposition home or self-care (01) ==
PROVIDERS: Emergency Medicine; Emergency Provider Family Medicine; PCP Nurse Practitioner Family
DX: N30.90 Cystitis, unspecified without hematuria (principal); Z79.01 Long term (current) use of anticoagulants; I48.92 Unspecified atrial flutter; I11.0 Hypertensive heart disease with heart failure; I50.9 Heart failure, unspecified; E78.5 Hyperlipidemia, unspecified; Z98.61 Coronary angioplasty status; F17.210 Nicotine dependence, cigarettes, uncomplicated
CPT/HCPCS: 12345; 71045; 71275; 74177; 80053; 81001; 82550; 83690; 85025; 85378; 85610; 87077; 87086; 87186; 87426; 87635; 96365; 99283; 99284; J0696; Q9967

== ENCOUNTER 2020-07-15 14:21 | Outpatient (CLI) | payer MEDICARE, SELFPAY ==
--- NOTE | 2020-07-15 14:29 | XR_ITS ---
WS: [id number] CERVICAL SPINE FLEXION EXTENSION TECHNIQUE: 3 views of the cervical spine: lateral neutral, flexion and extension views. CLINICAL INFORMATION: R76.8 - Other specified abnormal immunological findings in serum COMPARISON: None. FINDINGS: Osteopenia. Normal cervical alignment. Mild spondylitic changes. Normal C1-C2 articulation. Trace anterolisthesis C3 on C4, C4 on C5 and C6 on C7. No instability on flexion-extension. Posterior elements are normal. No other significant findings. XR/XR cervical spine fl/ex [id number] IMPRESSION: 1. Mild spondylitic changes. No instability on flexion-extension.
--- NOTE | 2020-07-15 14:29 | XR_ITS ---
WS: [id number] SHOULDER RIGHT TECHNIQUE: 3 views of the right shoulder CLINICAL INFORMATION: R76.8 - Other specified abnormal immunological findings in serum COMPARISON: None. FINDINGS: Mild degenerative arthritis AC joint. Mild downsloping acromion. Mild narrowing of the subacromial sp estuardo. Subacromial spurring. Osteopenia. No acute fracture or dislocation. Partially visualized sternot walter and vascular stent. XR/XR shoulder RT min 2V* [id number] IMPRESSION: 1. Mild degenerative arthritis AC joint. 2. Moderate degenerative arthropathy with narrowing of the subacromial space. 3. No acute fractures.
--- NOTE | 2020-07-15 14:29 | XR_ITS ---
WS: [id number] LUMBAR SPINE TECHNIQUE: 3 views of the lumbar spine CLINICAL INFORMATION: R76.8 - Other specified abnormal immunological findings in serum COMPARISON: None. FINDINGS: Osteopenia. Lumbar scoliosis convex right. This is unchanged since thousand 17. Mild chronic appearin g compression deformities in the lower thoracic spine and L1 and L2. This is similar in appearance th e prior examination. Mild disc space narrowing L4-L5 and L5-S1. Moderate facet arthropathy L4-L5 and L5-S1 bony foraminal narrowing. Aortic calcification. XR/XR lumbar spine 2-3V* [id number] IMPRESSION: 1. Osteopenia. 2. Moderate lumbar curve convex right is unchanged. 3. No acute appearing compression fractures. Mild chronic superior endplate co mpression deformities appear unchanged from previous. 4. Disc space narrowing worse L4-L5 and L5-S1.
--- NOTE | 2020-07-15 14:29 | XR_ITS ---
WS: [id number] SCREENING DEXA SCAN [employer] CLINICAL INFORMATION: January 18, 2017 COMPARISON: None. FINDINGS: The L1-L4 bone mineral density measures 0.932 g/cm2. This corresponds to a T score score of -2.1 and Z score of -0.4. Left femoral neck bone mineral density measures 0.638 g/cm2. This corresponds to a T score of -2.9 an d Z score of -1.6. Right femoral neck bone mineral density measures 0.631 g/cm2. This corresponds to a T score -3.0of an d Z score of -1.6. Mean femoral neck bone mineral density measures 0.635 g/cm2. This corresponds to a T score of -3.0 an d Z score of -1.6. XR/XR DEXA axial skeleton* [id number] IMPRESSION: Osteoporosis Patient's FRAX calculated 10 year probability for major osteoporotic fracture i s 40.0 % and osteoporotic hip fracture is 19.0%.
== END 2020-07-15 14:22 | disposition home or self-care (01) ==
PROVIDERS: PCP Nurse Practitioner Family; Visit Provider Internal Medicine
DX: R76.8 Other specified abnormal immunological findings in serum (principal); M32.9 Systemic lupus erythematosus, unspecified; Z79.899 Other long term (current) drug therapy; Z51.81 Encounter for therapeutic drug level monitoring; M19.011 Primary osteoarthritis, right shoulder; M85.88 Other specified disorders of bone density and structure, other site; M81.0 Age-related osteoporosis without current pathological fracture
CPT/HCPCS: 36415; 72040; 72100; 73030; 77080; 80053; 82955; 85025; 85651; 86140; 86480; 86704; 86803; 86812; 87340; 99204

== ENCOUNTER → 2020-08-06 11:33 | Outpatient (BNVA) | payer MEDICARE, SELFPAY | PROVIDERS: PCP Nurse Practitioner Family; Visit Provider Nurse Practitioner Family | DX: R73.9 Hyperglycemia, unspecified (principal); G47.00 Insomnia, unspecified; E78.5 Hyperlipidemia, unspecified | CPT/HCPCS: 80061; 83036 ==

== ENCOUNTER 2020-08-13 17:21 | Inpatient (IN) | payer MEDICARE, SELFPAY ==
[2020-08-13] VITALS (8 sets, daily range): BP systolic 109–134; BP diastolic 66–78; PULSE 84–95; RESP 16–22; TEMP 36.6–36.9; O2SAT 95–100; BMI 24.3
--- NOTE | 2020-08-13 17:16 | CTR_ITS ---
PROCEDURE INFORMATION: Exam: CT Head Without Contrast Exam date and time: 08/13/2020 5:18 PM Age: 65 years old Clinical indication: Injury or trauma; Fall; Bleeding/hemorrhage; Injury details: Left occipital hematoma TECHNIQUE: Imaging protocol: Computed tomography of the head without contrast. Radiation optimization: All CT scans at this facility use at least one of these dose optimization techniques: automated exposure control; mA and/or kV adjustment per patient size (includes targeted exams where dose is matched to clinical indication); or iterative reconstruction. COMPARISON: No relevant prior studies available. RADIATION DOSE METRICS: Total DLP (mGy-cm): 1611.49 FINDINGS: Brain: There is mild cerebral atrophy. There is mild diffuse heterogeneity of the white matter attenuation, consistent with chronic white matter ischemic changes. No intracranial hemorrhage. [place] matter and white matter differentiation is preserved. No midline shift of brain. Cerebral ventricles: No ventriculomegaly. Bones/joints: Unremarkable. No acute fracture. Paranasal sinuses: Visualized sinuses are unremarkable. No fluid levels. Mastoid air cells: Visualized mastoid air cells are well aerated. Vasculature: Intracranial atherosclerosis. Soft tissues: Large left posterior scalp hematoma. CT/CT head wo con* [id number] IMPRESSION: 1. Negative for acute intracranial injury. 2. Left posterior scalp hematoma. Radiation Dose CTDIVOL = (mGy): DLP = 1611.49 (mGy-cm)
--- NOTE | 2020-08-13 17:30 | XR_ITS ---
WS: [id number] Portable AP upright chest, 08/13/2020 Clinical Data: dyspnea/cough Comparison: Portable chest, 06/23/2020. Findings: No nodules, masses or effusions are seen. The heart is enlarged. The pulmonary vascularity is not increased. No pneumonia or pneumothorax is seen. There is interstitial opacity throughout both lungs unchanged. Midline sternotomy sutures and artificial heart valve are present. There is a left subclavian stent. Monitor leads on the chest wall. XR/XR chest 1V portable [id number] Impression: 1. Cardiomegaly and atherosclerosis. 2. Chronic interstitial thickening throughout both lungs.
--- NOTE | 2020-08-13 17:30 | ECG_ITS ---
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 Measurements Intervals [place] Rate: 80 P: [place]: QRS: -16 QRSD: 177 T: 87 QT: 444 QTc: 513 Interpretive Statements ATRIAL FIBRILLATION LEFT BUNDLE BRANCH BLOCK [120+ ms QRS DURATION, 80+ ms Q/S IN V1/V2, 85+ ms R IN I/aVL/V5/V6] INTERPRETATION BASED ON A DEFAULT AGE OF 40 YEARS Compared to ECG 12/23/2019 19:38:51 No significant changes Electronically Signed On 08-13-2020 20:18:55 HEADING AND PRIMING TOOL SETTER by Khushboo Dalton M.D. [email or web address]
--- NOTE | 2020-08-13 17:32 | W.ED.FALL ---
Documented by User: Dioni Montalvo DO 08/14/20 08:53 HPI - Fall General: Chief Complaint: Fall Stated Complaint: fall Time Seen by Provider: 08/13/20 17:29 History of Present Illness: HPI Narrative: 85-year-old female has been drinking heavily today fell downstairs at home when she went outside to smoke. There was a period of time lost consciousness addition to that she is on Coumadin a INR done last week was over 2.5. She has no active bleeding is controlled no pain on the left lower ribs where she hit her ribs as she fell. Her sats have been normal in route she was not given any pain medication but was given antiemetics. MD complaint: fall Onset (ago): minute(s) Fall from: standing and down stairs (#) Fall witnessed: no Place fall occurred: home Loss of consciousness: Yes Length of LOC: minutes(s) Prolonged down time: no Symptoms prior to fall: lightheadedness, dizziness and other (Had been drinking) Context: alcohol use Location of injury: chest Severity: severe Quality: sharp Associated symptoms-after fall: Reports chest pain; Denies abdominal pain, confusion, difficulty walking, headache(s), hematuria, lightheadedness, neck pain, numbness, short of breath, vertigo or weakness Review of Systems Const: Denies: fever(s), chills, body aches, change in appetite, fatigue or malaise ENMT: Denies: throat pain, ear or mastoid pain, nasal discharge or nasal congestion Card: Reports: chest pain; Denies: lightheadedness Resp: Denies: dyspnea, productive cough or non-productive cough GI: Denies: abdominal pain : Denies: hematuria Musc: Denies: neck pain Skin/Breast: Denies: rash or pruritus Neuro: Denies: headache(s), difficulty walking, vertigo or confusion PFSH ED PFSH: Medical History Anticoagulated on warfarin ASHD (arteriosclerotic heart disease) Atrial flutter CHF (congestive heart failure) Depression Hyperlipidemia Hypertension Osteoporosis PVD (peripheral vascular disease) Surgical History Hx of coronary angioplasty Hx of hysterectomy Hx of mitral valve repair Hx of sinus surgery Hx of tonsillectomy Family History Family/Other Diabetes Cancer Heart disease Katja-Danlos syndrome type VIII Social History Smoking and tobacco status: current some day smoker cigarettes Packs smoked per day: 0.5 Years cigarettes smoked: 40 Second hand smoke exposure: No Alcohol intake: never Lives independently: Yes Marital status: Current occupational status: retired History of recent travel: No Current gender identity: Female Physical Exam Const: COMMON NORMALS: no acute distress GENERAL APPEARANCE: cooperative and comfortable ORIENTATION/CONSCIOUSNESS: Yes awake, Yes oriented to person, Yes oriented to place and Yes oriented to time HENMT: COMMON NORMALS: normocephalic, atraumatic, hearing grossly normal bilaterally, external ears normal, EAC's normal, TM's normal bilaterally, Normal nasal mucous membranes and turbinates present, moist oral mucous membranes and oropharynx normal HEAD & SCALP: normocephalic and atraumatic NOSE: Normal nasal mucous membranes and turbinates present EXTERNAL EAR: Yes external ears normal EXTERNAL AUDITORY CANAL: EAC's normal TYMPANIC MEMBRANE: TM's normal bilaterally Eye: COMMON NORMALS: Equal, round and reactive pupils present, EOMs intact bilaterally, conjunctivae normal and no scleral icterus CONJUNCTIVA: Yes conjunctivae normal PUPIL: Yes Equal, round and reactive pupils present Neck/C-Spine: COMMON NORMALS: full ROM, no lymphadenopathy, supple and no JVD Chest: OTHER: Exquisite tenderness under the left breast no subcutaneous air or crackles noted on palpation or auscultation imaging pending Resp: COMMON NORMALS: normal respiratory effort, No retractions, No use of accessory muscles and clear to auscultation bilaterally AUSCULTATION: clear to auscultation bilaterally Cardio: COMMON NORMALS: no JVD, regular rate, regular rhythm and No murmurs present (Cardio) RATE: regular rate RHYTHM: regular rhythm GI: COMMON NORMALS: Soft to palpation and No hepatosplenomegaly present AUSCULTATION: Yes normoactive bowel sounds PALPATION: Yes Soft to palpation, No Tenderness to palpation present (GI), No Guarding due to palpation present (GI) and Yes No hepatosplenomegaly present Extremity: COMMON NORMALS: normal to inspection, capillary refill normal, no clubbing, cyanosis or edema, no calf tenderness and no pedal edema Neuro: SENSORIUM/ORIENTATION: Yes oriented to person, Yes oriented to place and Yes oriented to time Skin: COMMON NORMALS: no rashes or lesions noted GENERAL SKIN EXAM: no rashes or lesions noted Course Vital Signs: Vital signs: Vital Signs Temperature 98.5 F 08/14/20 07:43 Pulse Rate 82 08/14/20 07:43 Respiratory Rate 17 08/14/20 07:43 Blood Pressure 124/83 08/14/20 07:43 Pulse Oximetry 96 08/14/20 07:43 MDM - Fall MDM Narrative: Medical decision making narrative: Evaluation done by myself on presentation chest x-ray did not show any pneumothorax. Other labs and CT imaging are pending care turned over to Dr. Cramer at change of shift. See his notes for final diagnosis and disposition Lab Data: Labs: Lab Results 08/13/20 08/13/20 08/13/20 Range/Units 17:53 17:53 17:53 WBC 16.0 H (4.0-10.0) 10^3/ uL RBC 3.99 L (4.1-5.3) 10^6/u L Hgb 12.9 (11.5-15.3) g/dL Hct 39.9 (37.0-47.0) % MCV 100.0 H (81-99) fL MCH 32.3 (28.0-34.0) pg MCHC 32.3 (30.0-36.0) g/dL RDW 15.1 (12.1-15.1) % Plt Count 374 (130-400) 10^3/c mm MPV 9.8 (7.4-10.4) fL Neut % (Auto) 88.4 % Lymph % (Auto) 6.1 % [facility] % (Auto) 3.8 % Eos % (Auto) 0.5 % Baso % (Auto) 0.4 % Neut # (Auto) 14.15 H (1.8-7.7) 10^3/u L Lymph # (Auto) 1.0 (0.8-4.8) 10^3/u L [facility] [place] # (Auto) 0.6 (0.2-0.9) 10^3/u L Eos # (Auto) 0.1 (0.0-0.8) 10^3/u L Baso # (Auto) 0.1 (0.0-0.1) 10^3/u L Nucleated RBC % (a uto) 0 % Nucleated RBCs # 0.0 /100WBC PT (12.1-14.9) SECO NDS INR (0.8-1.2) Sodium 133 L (136-145) mmol/L Potassium 3.8 (3.5-5.1) mmol/L Chloride 93 L (98-107) mmol/L Carbon Dioxide 26 (22-29) mmol/L Anion Gap 17.8 (5-19) BUN 17 (8-23) mg/dL Creatinine 0.7 (0.5-0.9) mg/dL GFR Calculation 83.5 L (90-130) mL/min Glucose 91 (65-115) mg/dL Calculated Osmolal ity 277 L (285-295) mOsm/k g Calcium 8.9 (8.5-10.5) mg/dL Total Bilirubin 0.5 (0.15-1.2) mg/dL AST 23 (0-32) U/L ALT 16 (0-33) U/L Alkaline Phosphata se 115 H (35-105) IU/L Troponin T Baselin e 23 H (0-10) ng/L Total Protein 8.0 (6.6-8.7) g/dL Albumin 3.8 (3.5-5.2) g/dL Globulin 4.2 (1.3-4.6) g/dL Lipase 38 (13-60) U/L Urine Color (Yellow) Urine Appearance (CLEAR) Urine pH (5-7) Ur Specific Gravit y (1.005-1.030) Urine Protein (Negative) Urine Glucose (UA) (Normal) Urine Ketones (Negative) Urine Blood (Negative) Urine Nitrate (Negative) Urine Bilirubin (Negative) Urine Urobilinogen (Negative) mg/dL Ur Leukocyte Arin ase (Negative) Urine RBC (0-2) /hpf Urine WBC (0-5) /hpf Ur Squamous Epith Cells (0-5) /hpf Amorphous Sediment Urine Bacteria (NONE) /hpf Urine Mucus /hpf Ethyl Alcohol 106 H (0-10) mg/dL 08/13/20 08/13/20 Range/Units 17:53 19:02 WBC (4.0-10.0) 10^3/ uL RBC (4.1-5.3) 10^6/u L Hgb (11.5-15.3) g/dL Hct (37.0-47.0) % MCV (81-99) fL MCH (28.0-34.0) pg MCHC (30.0-36.0) g/dL RDW (12.1-15.1) % Plt Count (130-400) 10^3/c mm MPV (7.4-10.4) fL Neut % (Auto) % Lymph % (Auto) % [facility] [place] % (Auto) % Eos % (Auto) % Baso % (Auto) % Neut # (Auto) (1.8-7.7) 10^3/u L Lymph # (Auto) (0.8-4.8) 10^3/u L [facility] [place] [facility] # (Auto) (0.2-0.9) 10^3/u L Eos # (Auto) (0.0-0.8) 10^3/u L Baso # (Auto) (0.0-0.1) 10^3/u L Nucleated RBC % (a uto) % Nucleated RBCs # /100WBC PT 24.80 H (12.1-14.9) SECO NDS INR 2.15 H (0.8-1.2) Sodium (136-145) mmol/L Potassium (3.5-5.1) mmol/L Chloride (98-107) mmol/L Carbon Dioxide (22-29) mmol/L Anion Gap (5-19) BUN (8-23) mg/dL Creatinine (0.5-0.9) mg/dL GFR Calculation (90-130) mL/min Glucose (65-115) mg/dL Calculated Osmolal ity (285-295) mOsm/k g Calcium (8.5-10.5) mg/dL Total Bilirubin (0.15-1.2) mg/dL AST (0-32) U/L ALT (0-33) U/L Alkaline Phosphata se (35-105) IU/L Troponin T Baselin e (0-10) ng/L Total Protein (6.6-8.7) g/dL Albumin (3.5-5.2) g/dL Globulin (1.3-4.6) g/dL Lipase (13-60) U/L Urine Color Yellow (Yellow) Urine Appearance Clear (CLEAR) Urine pH 5 (5-7) Ur Specific Gravit y 1.005 (1.005-1.030) Urine Protein Neg (Negative) Urine Glucose (UA) Norm (Normal) Urine Ketones Negative (Negative) Urine Blood 2+ H (Negative) Urine Nitrate Negative (Negative) Urine Bilirubin Neg (Negative) Urine Urobilinogen Norm (Negative) mg/dL Ur Leukocyte Arin ase Negative (Negative) Urine RBC 0-4 H (0-2) /hpf Urine WBC 0-4 H (0-5) /hpf Ur Squamous Epith Cells 0-4 H (0-5) /hpf Amorphous Sediment Not Reportable Urine Bacteria Trace (NONE) /hpf Urine Mucus Trace /hpf Ethyl Alcohol (0-10) mg/dL Discharge Plan Discharge Admit Provider: Vipul Nunez Coding Level of Care Code 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 [employer] Documented by User: Stanley Cramer MD 08/13/20 21:05 HPI - Fall General: Chief Complaint: Fall Stated Complaint: fall Time Seen by Provider: 08/13/20 17:29 [facility] ED PFSH: Medical History Anticoagulated on warfarin ASHD (arteriosclerotic heart disease) Atrial flutter CHF (congestive heart failure) Depression Hyperlipidemia Hypertension Osteoporosis PVD (peripheral vascular disease) Surgical History Hx of coronary angioplasty Hx of hysterectomy Hx of mitral valve repair Hx of sinus surgery Hx of tonsillectomy Family History Family/Other Diabetes Cancer Heart disease Katja-Danlos syndrome type VIII Social History Smoking and tobacco status: current some day smoker cigarettes Packs smoked per day: 0.5 Years cigarettes smoked: 40 Second hand smoke exposure: No Alcohol intake: never Lives independently: Yes Marital status: Current occupational status: retired History of recent travel: No Current gender identity: Female Course Vital Signs: Vital signs: Vital Signs Temperature 98.5 F 08/14/20 07:43 Pulse Rate 82 08/14/20 07:43 Respiratory Rate 17 08/14/20 07:43 Blood Pressure 124/83 08/14/20 07:43 Pulse Oximetry 96 08/14/20 07:43 MDM - Fall MDM Narrative: Medical decision making narrative: Clementina presents here with rib fracture from a fall. She has no other signs of injuries. She does have multiple medical issues and with her fractures I feel she needs to be observed. I spoke to Dr. Nunez who did agree and I also spoke to hospitalist who is consulted. Lab Data: Labs: Lab Results 08/13/20 08/13/20 08/13/20 Range/Units 17:53 17:53 17:53 WBC 16.0 H (4.0-10.0) 10^3/ uL RBC 3.99 L (4.1-5.3) 10^6/u L Hgb 12.9 (11.5-15.3) g/dL Hct 39.9 (37.0-47.0) % MCV 100.0 H (81-99) fL MCH 32.3 (28.0-34.0) pg MCHC 32.3 (30.0-36.0) g/dL RDW 15.1 (12.1-15.1) % Plt Count 374 (130-400) 10^3/c mm MPV 9.8 (7.4-10.4) fL Neut % (Auto) 88.4 % Lymph % (Auto) 6.1 % [facility] [place] [facility] % (Auto) 3.8 % Eos % (Auto) 0.5 % Baso % (Auto) 0.4 % Neut # (Auto) 14.15 H (1.8-7.7) 10^3/u L Lymph # (Auto) 1.0 (0.8-4.8) 10^3/u L [facility] # (Auto) 0.6 (0.2-0.9) 10^3/u L Eos # (Auto) 0.1 (0.0-0.8) 10^3/u L Baso # (Auto) 0.1 (0.0-0.1) 10^3/u L Nucleated RBC % (a uto) 0 % Nucleated RBCs # 0.0 /100WBC PT (12.1-14.9) SECO NDS INR (0.8-1.2) Sodium 133 L (136-145) mmol/L Potassium 3.8 (3.5-5.1) mmol/L Chloride 93 L (98-107) mmol/L Carbon Dioxide 26 (22-29) mmol/L Anion Gap 17.8 (5-19) BUN 17 (8-23) mg/dL Creatinine 0.7 (0.5-0.9) mg/dL GFR Calculation 83.5 L (90-130) mL/min Glucose 91 (65-115) mg/dL Calculated Osmolal ity 277 L (285-295) mOsm/k g Calcium 8.9 (8.5-10.5) mg/dL Total Bilirubin 0.5 (0.15-1.2) mg/dL AST 23 (0-32) U/L ALT 16 (0-33) U/L Alkaline Phosphata se 115 H (35-105) IU/L Troponin T Baselin e 23 H (0-10) ng/L Total Protein 8.0 (6.6-8.7) g/dL Albumin 3.8 (3.5-5.2) g/dL Globulin 4.2 (1.3-4.6) g/dL Lipase 38 (13-60) U/L Urine Color (Yellow) Urine Appearance (CLEAR) Urine pH (5-7) Ur Specific Gravit y (1.005-1.030) Urine Protein (Negative) Urine Glucose (UA) (Normal) Urine Ketones (Negative) Urine Blood (Negative) Urine Nitrate (Negative) Urine Bilirubin (Negative) Urine Urobilinogen (Negative) mg/dL Ur Leukocyte Arin ase (Negative) Urine RBC (0-2) /hpf Urine WBC (0-5) /hpf Ur Squamous Epith Cells (0-5) /hpf Amorphous Sediment Urine Bacteria (NONE) /hpf Urine Mucus /hpf Ethyl Alcohol 106 H (0-10) mg/dL 08/13/20 08/13/20 Range/Units 17:53 19:02 WBC (4.0-10.0) 10^3/ uL RBC (4.1-5.3) 10^6/u L Hgb (11.5-15.3) g/dL Hct (37.0-47.0) % MCV (81-99) fL MCH (28.0-34.0) pg MCHC (30.0-36.0) g/dL RDW (12.1-15.1) % Plt Count (130-400) 10^3/c mm MPV (7.4-10.4) fL Neut % (Auto) % Lymph % (Auto) % [facility] [place] [facility] % (Auto) % Eos % (Auto) % Baso % (Auto) % Neut # (Auto) (1.8-7.7) 10^3/u L Lymph # (Auto) (0.8-4.8) 10^3/u L [facility] # (Auto) (0.2-0.9) 10^3/u L Eos # (Auto) (0.0-0.8) 10^3/u L Baso # (Auto) (0.0-0.1) 10^3/u L Nucleated RBC % (a uto) % Nucleated RBCs # /100WBC PT 24.80 H (12.1-14.9) SECO NDS INR 2.15 H (0.8-1.2) Sodium (136-145) mmol/L Potassium (3.5-5.1) mmol/L Chloride (98-107) mmol/L Carbon Dioxide (22-29) mmol/L Anion Gap (5-19) BUN (8-23) mg/dL Creatinine (0.5-0.9) mg/dL GFR Calculation (90-130) mL/min Glucose (65-115) mg/dL Calculated Osmolal ity (285-295) mOsm/k g Calcium (8.5-10.5) mg/dL Total Bilirubin (0.15-1.2) mg/dL AST (0-32) U/L ALT (0-33) U/L Alkaline Phosphata se (35-105) IU/L Troponin T Baselin e (0-10) ng/L Total Protein (6.6-8.7) g/dL Albumin (3.5-5.2) g/dL Globulin (1.3-4.6) g/dL Lipase (13-60) U/L Urine Color Yellow (Yellow) Urine Appearance Clear (CLEAR) Urine pH 5 (5-7) Ur Specific Gravit y 1.005 (1.005-1.030) Urine Protein Neg (Negative) Urine Glucose (UA) Norm (Normal) Urine Ketones Negative (Negative) Urine Blood 2+ H (Negative) Urine Nitrate Negative (Negative) Urine Bilirubin Neg (Negative) Urine Urobilinogen Norm (Negative) mg/dL Ur Leukocyte Arin ase Negative (Negative) Urine RBC 0-4 H (0-2) /hpf Urine WBC 0-4 H (0-5) /hpf Ur Squamous Epith Cells 0-4 H (0-5) /hpf Amorphous Sediment Not Reportable Urine Bacteria Trace (NONE) /hpf Urine Mucus Trace /hpf Ethyl Alcohol (0-10) mg/dL Imaging Data^: Other CT: Radiologist's impression: [place] [address] CT Scan Report Signed Patient: Clementina Mcghee Unit #: [id number] : 1955 Age/Sex: 65 / F ADM Date: 08/13/20 Loc: ER Room/Bed: Attending Dr: Ordering Provider/Ordering MD: Dioni Montalvo DO Date of Service: 08/13/20 Procedure(s): CT cervical spin wo con* [id number] Accession Number(s): [id number] Report Number: [id number] PROCEDURE INFORMATION: Exam: CT Cervical Spine Without Contrast Exam date and time: 08/13/2020 5:51 PM Age: 65 years old Clinical indication: Injury or trauma; Fall; Blunt trauma; Additional info: Fall/neck pain TECHNIQUE: Imaging protocol: Computed tomography images of the cervical spine without contrast. Radiation optimization: All CT scans at this facility use at least one of these dose optimization techniques: automated exposure control; mA and/or kV adjustment per patient size (includes targeted exams where dose is matched to clinical indication); or iterative reconstruction. COMPARISON: CR XR cervical spine fl/ex [id number] 07/15/2020 2:45 PM RADIATION DOSE METRICS: Total DLP (mGy-cm): 533.98 FINDINGS: Vertebrae: No fractures. Alignment is unremarkable. The cervical spine demonstrates moderate degenerative changes at multiple levels. Other bones/joints: Bones are demineralized. Soft tissues: Unremarkable. Vasculature: Bilateral carotid artery bulb atherosclerotic plaque. There is possibly an endovascular stent at the origin of the left subclavian artery. Lungs: Moderate emphysema. Bilateral apical lung scarring. CT/CT cervical spin wo con* [id number] IMPRESSION: Negative for acute cervical spine abnormality CT Head: Radiologist's impression: [facility] [address] [address] Scan Report Signed Patient: Clementina Mcghee Unit #: [id number] : 1955 Age/Sex: 65 / F ADM Date: 08/13/20 Loc: ER Room/Bed: Attending Dr: Ordering Provider/Ordering MD: Dioni Montalvo DO Date of Service: 08/13/20 Procedure(s): CT head wo con* [id number] Accession Number(s): [id number] Report Number: [id number] PROCEDURE INFORMATION: Exam: CT Head Without Contrast Exam date and time: 08/13/2020 5:18 PM Age: 65 years old Clinical indication: Injury or trauma; Fall; Bleeding/hemorrhage; Injury details: Left occipital hematoma TECHNIQUE: Imaging protocol: Computed tomography of the head without contrast. Radiation optimization: All CT scans at this facility use at least one of these dose optimization techniques: automated exposure control; mA and/or kV adjustment per patient size (includes targeted exams where dose is matched to clinical indication); or iterative reconstruction. COMPARISON: No relevant prior studies available. RADIATION DOSE METRICS: Total DLP (mGy-cm): 1611.49 FINDINGS: Brain: There is mild cerebral atrophy. There is mild diffuse heterogeneity of the white matter attenuation, consistent with chronic white matter ischemic changes. No intracranial hemorrhage. Rutledge matter and white matter differentiation is preserved. No midline shift of brain. Cerebral ventricles: No ventriculomegaly. Bones/joints: Unremarkable. No acute fracture. Paranasal sinuses: Visualized sinuses are unremarkable. No fluid levels. Mastoid air cells: Visualized mastoid air cells are well aerated. Vasculature: Intracranial atherosclerosis. Soft tissues: Large left posterior scalp hematoma. CT/CT head wo con* [id number] IMPRESSION: 1. Negative for acute intracranial injury. 2. Left posterior scalp hematoma. CT Chest: Radiologist's impression: [address] [place] [address] CT Scan Report Signed Patient: Clementina Mcghee Unit #: [id number] : 1955 Age/Sex: 65 / F ADM Date: 08/13/20 Loc: ER Room/Bed: Attending Dr: Ordering Provider/Ordering MD: Dioni Montalvo DO Date of Service: 08/13/20 Procedure(s): CT chest abd pel w con* Accession Number(s): [id number] Report Number: [id number] PROCEDURE INFORMATION: Exam: CT Chest With Contrast; Diagnostic Exam date and time: 08/13/2020 5:51 PM Age: 65 years old Clinical indication: Injury or trauma; Fall; Generalized; Blunt trauma (contusions or hematomas); Prior surgery; Surgery type: Hyst; Additional info: Abd pain/fall/intox TECHNIQUE: Imaging protocol: Diagnostic computed tomography of the chest with contrast. Radiation optimization: All CT scans at this facility use at least one of these dose optimization techniques: automated exposure control; mA and/or kV adjustment per patient size (includes targeted exams where dose is matched to clinical indication); or iterative reconstruction. Contrast material: OMNI 300; Contrast volume: 95 ml; Contrast route: INTRAVENOUS (IV); COMPARISON: CT angio chest PE protcl [id number] 06/23/2020 3:34 PM RADIATION DOSE METRICS: Total DLP (mGy-cm): 1359.06 FINDINGS: Lungs: Severe emphysema of the lungs. No pulmonary hemorrhage. Scattered peripheral lung blebs. Bilateral apical lung parenchymal and pleural scarring. Pleural spaces: Negative for hemothorax. Negative for pneumothorax. Heart: Previous CABG. Mild left ventricular cavity dilation. No pericardial effusion. Mitral valve replacement. Aorta: No thoracic aorta injury. No aneurysm. Great vessels off aortic arch: Stent within the origin of the left subclavian artery with unremarkable patency. Lymph nodes: Unremarkable. No enlarged lymph nodes. Bones/joints: Diffuse osseous demineralization pattern. Completely displaced acute fracture in the lateral aspect of the left ribs 8. Angulated, acute fracture in the posterior aspect of left rib 9. Nondisplaced fracture in the lateral side AcipHex dove left rib 7. Mild intercostal soft tissue hematoma. Soft tissues: Mild left intercostal soft tissue hematoma. No active bleeding. IMPRESSION: 1. Multiple acute left-sided rib fractures. Mild intercostal soft tissue hematoma. 2. No acute intrathoracic injury. 3. No active bleeding. Layering density in the gallbladder consistent with sludge or stones. No gallbladder wall thickening. PROCEDURE INFORMATION: Exam: CT Abdomen And Pelvis With Contrast Exam date and time: 08/13/2020 5:51 PM Age: 65 years old Clinical indication: Injury or trauma; Fall; Generalized; Blunt trauma (contusions or hematomas); Prior surgery; Surgery type: Hyst; Additional info: Abd pain/fall/intox TECHNIQUE: Imaging protocol: Computed tomography of the abdomen and pelvis with contrast. Radiation optimization: All CT scans at this facility use at least one of these dose optimization techniques: automated exposure control; mA and/or kV adjustment per patient size (includes targeted exams where dose is matched to clinical indication); or iterative reconstruction. Contrast material: OMNI 300; Contrast volume: 95 ml; Contrast route: INTRAVENOUS (IV); COMPARISON: CT angio chest PE protcl [id number] 06/23/2020 3:34 PM RADIATION DOSE METRICS: Total DLP (mGy-cm): 1359.06 FINDINGS: Liver: Normal. No mass. Gallbladder and bile ducts: Normal. No calcified stones. No ductal dilation. Pancreas: Normal. No ductal dilation. Spleen: Normal. No splenomegaly. Adrenal glands: Normal. No mass. Kidneys and ureters: Small left renal cortical cyst in the anterior interpolar aspect. 10 mm diameter. No dedicated follow-up recommended. No renal laceration injury. No contusion. Stomach and bowel: Unremarkable. No obstruction. No mucosal thickening. Appendix: No evidence of appendicitis. Intraperitoneal space: Negative for hemoperitoneum. Negative for pneumoperitoneum. Vasculature: Diffuse atherosclerosis. No arterial occlusion. Lymph nodes: Unremarkable. No enlarged lymph nodes. Urinary bladder: Unremarkable as visualized. Reproductive: Hysterectomy. Cyst in the left ovary with simple CT features 2.3 cm diameter other than a small central thin septation. Bones/joints: Bones are demineralized. No acute lumbar spine fracture. No acute pelvic fracture. Hip joint alignments are intact. No lumbar vertebral body height loss. Soft tissues: No active abdominopelvic bleeding. CT/CT chest abd pel w con* IMPRESSION: 1. Negative for acute abdominopelvic injury. 2. Incidental finding of a small left ovarian cyst with small septation. Pelvic ultrasound follow-up is recommended. COMMENTS: Critical Care Time Critical Care Time: Critical Care Time: Yes Total Critical Care Time: 35 Attestation: This case had a high probability of a clinically significant, sudden, or life threatening deterioration of this patient's condition which required my full and direct attention, intervention and personal management. 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
--- NOTE | 2020-08-13 17:48 | CTR_ITS ---
PROCEDURE INFORMATION: Exam: CT Chest With Contrast; Diagnostic Exam date and time: 08/13/2020 5:51 PM Age: 65 years old Clinical indication: Injury or trauma; Fall; Generalized; Blunt trauma (contusions or hematomas); Prior surgery; Surgery type: Hyst; Additional info: Abd pain/fall/intox TECHNIQUE: Imaging protocol: Diagnostic computed tomography of the chest with contrast. Radiation optimization: All CT scans at this facility use at least one of these dose optimization techniques: automated exposure control; mA and/or kV adjustment per patient size (includes targeted exams where dose is matched to clinical indication); or iterative reconstruction. Contrast material: OMNI 300; Contrast volume: 95 ml; Contrast route: INTRAVENOUS (IV); COMPARISON: CT angio chest PE protcl [id number] 06/23/2020 3:34 PM RADIATION DOSE METRICS: Total DLP (mGy-cm): 1359.06 FINDINGS: Lungs: Severe emphysema of the lungs. No pulmonary hemorrhage. Scattered peripheral lung blebs. Bilateral apical lung parenchymal and pleural scarring. Pleural spaces: Negative for hemothorax. Negative for pneumothorax. Heart: Previous CABG. Mild left ventricular cavity dilation. No pericardial effusion. Mitral valve replacement. Aorta: No thoracic aorta injury. No aneurysm. Great vessels off aortic arch: Stent within the origin of the left subclavian artery with unremarkable patency. Lymph nodes: Unremarkable. No enlarged lymph nodes. Bones/joints: Diffuse osseous demineralization pattern. Completely displaced acute fracture in the lateral aspect of the left ribs 8. Angulated, acute fracture in the posterior aspect of left rib 9. Nondisplaced fracture in the lateral side AcipHex dove left rib 7. Mild intercostal soft tissue hematoma. Soft tissues: Mild left intercostal soft tissue hematoma. No active bleeding. IMPRESSION: 1. Multiple acute left-sided rib fractures. Mild intercostal soft tissue hematoma. 2. No acute intrathoracic injury. 3. No active bleeding. Layering density in the gallbladder consistent with sludge or stones. No gallbladder wall thickening. PROCEDURE INFORMATION: Exam: CT Abdomen And Pelvis With Contrast Exam date and time: 08/13/2020 5:51 PM Age: 65 years old Clinical indication: Injury or trauma; Fall; Generalized; Blunt trauma (contusions or hematomas); Prior surgery; Surgery type: Hyst; Additional info: Abd pain/fall/intox TECHNIQUE: Imaging protocol: Computed tomography of the abdomen and pelvis with contrast. Radiation optimization: All CT scans at this facility use at least one of these dose optimization techniques: automated exposure control; mA and/or kV adjustment per patient size (includes targeted exams where dose is matched to clinical indication); or iterative reconstruction. Contrast material: OMNI 300; Contrast volume: 95 ml; Contrast route: INTRAVENOUS (IV); COMPARISON: CT angio chest PE protcl [id number] 06/23/2020 3:34 PM RADIATION DOSE METRICS: Total DLP (mGy-cm): 1359.06 FINDINGS: Liver: Normal. No mass. Gallbladder and bile ducts: Normal. No calcified stones. No ductal dilation. Pancreas: Normal. No ductal dilation. Spleen: Normal. No splenomegaly. Adrenal glands: Normal. No mass. Kidneys and ureters: Small left renal cortical cyst in the anterior interpolar aspect. 10 mm diameter. No dedicated follow-up recommended. No renal laceration injury. No contusion. Stomach and bowel: Unremarkable. No obstruction. No mucosal thickening. Appendix: No evidence of appendicitis. Intraperitoneal space: Negative for hemoperitoneum. Negative for pneumoperitoneum. Vasculature: Diffuse atherosclerosis. No arterial occlusion. Lymph nodes: Unremarkable. No enlarged lymph nodes. Urinary bladder: Unremarkable as visualized. Reproductive: Hysterectomy. Cyst in the left ovary with simple CT features 2.3 cm diameter other than a small central thin septation. Bones/joints: Bones are demineralized. No acute lumbar spine fracture. No acute pelvic fracture. Hip joint alignments are intact. No lumbar vertebral body height loss. Soft tissues: No active abdominopelvic bleeding. CT/CT chest abd pel w con* IMPRESSION: 1. Negative for acute abdominopelvic injury. 2. Incidental finding of a small left ovarian cyst with small septation. Pelvic ultrasound follow-up is recommended. COMMENTS: Consistent with the [employer]'s Incidental Findings Committee white paper (J Am Jarvis Radiol 2018): Any incidental renal lesion less than 1 cm or classified as too small to characterize, or any incidental cystic renal lesion characterized as simple-appearing, is likely benign. No follow-up imaging is recommended for these lesions per consensus recommendations based on imaging criteria. Radiation Dose CTDIVOL = (mGy): DLP = 1359.06~1359.06 (mGy-cm)
--- NOTE | 2020-08-13 17:48 | CTR_ITS ---
PROCEDURE INFORMATION: Exam: CT Cervical Spine Without Contrast Exam date and time: 08/13/2020 5:51 PM Age: 65 years old Clinical indication: Injury or trauma; Fall; Blunt trauma; Additional info: Fall/neck pain TECHNIQUE: Imaging protocol: Computed tomography images of the cervical spine without contrast. Radiation optimization: All CT scans at this facility use at least one of these dose optimization techniques: automated exposure control; mA and/or kV adjustment per patient size (includes targeted exams where dose is matched to clinical indication); or iterative reconstruction. COMPARISON: CR XR cervical spine fl/ex [id number] 07/15/2020 2:45 PM RADIATION DOSE METRICS: Total DLP (mGy-cm): 533.98 FINDINGS: Vertebrae: No fractures. Alignment is unremarkable. The cervical spine demonstrates moderate degenerative changes at multiple levels. Other bones/joints: Bones are demineralized. Soft tissues: Unremarkable. Vasculature: Bilateral carotid artery bulb atherosclerotic plaque. There is possibly an endovascular stent at the origin of the left subclavian artery. Lungs: Moderate emphysema. Bilateral apical lung scarring. CT/CT cervical spin wo con* [id number] IMPRESSION: Negative for acute cervical spine abnormality. Radiation Dose CTDIVOL = (mGy): DLP = 533.98 (mGy-cm)
[2020-08-13] MEDS: sodium chloride 0.9% 1,000 ML 999 ML IV ×2 (18:00→20:05)
[2020-08-13 18:06] LABS: Basophils # 0.1 10^3/uL (0.0-0.1); Basophils % 0.4 %; Eosinophils # 0.1 10^3/uL (0.0-0.8); Eosinophils % 0.5 %; Hematocrit 39.9 % (37.0-47.0); Hemoglobin 12.9 g/dL (11.5-15.3); Lymphocytes % 6.1 %; Mean Corpuscular HGB Conc 32.3 g/dL (30.0-36.0); Mean Corpuscular Hemoglobin 32.3 pg (28.0-34.0); Mean Platelet Volume 9.8 fL (7.4-10.4); Monocytes # 0.6 10^3/uL (0.2-0.9); Monocytes % 3.8 %; Neutrophils # 14.15 10^3/uL (1.8-7.7); Neutrophils % 88.4 %; Nucleated Red Blood Cells % 0 %; Platelet Count 374 10^3/cmm (130-400); Red Blood Count 3.99 10^6/uL (4.1-5.3); Red Cell Distribution Width 15.1 % (12.1-15.1)
[2020-08-13] MEDS: iohexol 300 mg/mL 100 mL Btl IV (18:10)
[2020-08-13 18:51] LABS: Alanine Aminotransferase 16 U/L (0-33); Albumin Level 3.8 g/dL (3.5-5.2); Alcohol Level 106 mg/dL (0-10); Alkaline Phosphatase 115 IU/L (35-105); Blood Urea Nitrogen 17 mg/dL (8-23); Calcium 8.9 mg/dL (8.5-10.5); Carbon Dioxide 26 mmol/L (22-29); Chloride 93 mmol/L (98-107); Globulin 4.2 g/dL (1.3-4.6); Glomerular Filtration Rate 83.5 mL/min (90-130); Glucose 91 mg/dL (65-115); Lipase 38 U/L (13-60); Osmolality Calculated 277 mOsm/kg (285-295); Sodium 133 mmol/L (136-145); Total Bilirubin 0.5 mg/dL (0.15-1.2)
[2020-08-13 18:52] LABS: Anion Gap 17.8 (5-19); Aspartate Amino Transferase 23 U/L (0-32); Potassium 3.8 mmol/L (3.5-5.1)
[2020-08-13 18:56] LABS: Troponin(5th) Baseline 23 ng/L (0-10)
--- NOTE | 2020-08-13 19:00 | PC.PHAR ---
PT UNABLE TO CONFIRM MEDICATIONS EXCEPT TO SAY THAT SHE TOOK ALL HER MORNING MEDICATION. PT'S SON BROUGHT IN A BOX FILLED WITH PRESCRIPTIONS, SOME OF THEM WERE VERY OLD, AND HE WASN'T SURE IF THEY WERE ALL THERE, OR WHETHER OR NOT SHE WAS TAKING EVERYTHING THAT WAS THERE. SHE TAKES CARE OF HER MEDICATION BY HERSELF AT HOME.
[2020-08-13 19:19] LABS: Add Urine Microscopic? YES; Bacteria Urine TRACE /hpf; Bilirubin Urine Neg (Negative); Blood Urine 2+ (Negative); Glucose Urine UA Norm (Normal); Ketones Urine Negative (Negative); Leukocyte Esterase Urine Negative (Negative); Mucus Urine TRACE /hpf; Nitrate Urine Negative (Negative); Protein Urine Neg (Negative); RBC Urine 0-4 /hpf (0-2); Specific Gravity, Urine 1.005 (1.005-1.030); Squamous Epithelial Cell Urine 0-4 /hpf (0-5); Urine Appearance Clear (CLEAR); Urine Color Yellow (Yellow); Urobilinogen Urine Norm (Negative); WBC Urine 0-4 /hpf (0-5); pH Urine 5 (5-7)
[2020-08-13] MEDS: HYDROmorphone 1 mg/mL INJ 1 mL IVP (19:19)
--- NOTE | 2020-08-13 19:30 | ECG_ITS ---
[facility] Test Date: 2020-08-13 Pat Name: Clementina Mcghee Department: Room: 278 Gender: Female Tests Superintendent: : 1955 Requested By: Dioni Randle Order Number: [id number] Reading MD: LINDA CAI Measurements Intervals [place] Rate: 91 P: NM: QRS: -28 QRSD: 178 T: 115 QT: 424 QTc: 524 Interpretive Statements ATRIAL FIBRILLATION LEFT BUNDLE BRANCH BLOCK [120+ ms QRS DURATION, 80+ ms Q/S IN V1/V2, 85+ ms R IN I/aVL/V5/V6] INTERPRETATION BASED ON A DEFAULT AGE OF 40 YEARS Compared to ECG 08/13/2020 17:53:47 No significant changes Electronically Signed On 08-15-2020 21:35:32 ENSEMBLE MEMBER by LINDA CAI [email or web address] [id number] f
[2020-08-13 19:53] LABS: INR 2.15 (0.8-1.2)
[2020-08-13] MEDS: ketorolac 30 mg/mL INJ 15 MG IVP (20:05)
[2020-08-13 20:49] LABS: Troponin 5 2HR 22.98 ng/L (0-10)
[2020-08-13 20:50] LABS: Troponin 5 2HR Delta -0.02 ABS# (0-10)
--- NOTE | 2020-08-13 22:30 | P.CONIM_ITS ---
Providers/Reason For Consult Consulting Physican/Specialty*: Hospitalist Reason for Consult*: Medical management Requesting Physcian: Mayra Matthew Attending Physician: Vipul Nunez MD Primary Care Provider: JUSTIN Mccollum History of Present Illness History of Present Illness Clementina Mcghee is a 65 year old female admitted for chest trauma due to a fall at home. Patient with a history of medical problems including mitral valve repair on anticoagulation, chronic diastolic heart failure, COPD, emphysema was brought to the emergency department after a fall at home. Patient reports falling and rolling down the stairs leading to her basement. Images done in the ED demonstrates multiple rib fractures and small intercostal hematoma. Her alcohol level was 106. Patient denies drinking alcohol regularly. She said her previous alcohol drink before this one was about 2 weeks ago. Patient is admitted to cardiothoracic surgery service. Hospitalist service is consulted to assist with management of her multiple medical problems. Review of Systems Narrative: Patient denies any seizures, she denies passing out. She is compl aining of chest pain with breathing. Except as documented, all other systems reviewed and negative. Meds/Allergies Home Medications and Allergies Home Medications Medication Instructions Recorded Confirmed Last Taken Type albuterol sulfate 2.5 mg INHALATION Q4H PRN 08/29/19 08/13/20 Unknown History ascorbate calcium (vitamin C) 500 1 gm PO DAILY PRN tab 08/29/19 08/13/20 Unknown History mg tablet acetaminophen [Tylenol Extra 1,000 mg PO PRN 12/23/19 08/13/20 Unknown History Strength] calcium carbonate [Calcium 500] 500 mg PO DAILY PRN 12/23/19 08/13/20 12/22/19 History INR #1 ea 03/23/20 08/13/20 Unknown Rx nitroglycerin 0.4 mg sublingual 0.4 mg SUBLINGUAL Q5M PRN #30 tab 04/02/20 08/13/20 Unknown Rx tablet tramadol 50 mg tablet 50 mg PO TID PRN #30 tab 05/06/20 08/13/20 08/11/20 Rx ranolazine 500 mg tablet,extended 500 mg PO Q12H #180 tab 06/02/20 08/13/20 08/13/20 Rx release,12 hr albuterol sulfate [ProAir HFA] 2 puff INHALATION Q4H PRN 06/23/20 08/13/20 Unknown History amiodarone [Pacerone] 200 mg PO DAILY@06/23/20 08/13/20 08/13/20 History citalopram 10 mg PO DAILY@06/23/20 08/13/20 06/22/20 History furosemide 40 - 60 mg PO DAILY@06/23/20 08/13/20 08/13/20 History lisinopril 10 mg PO DAILY@06/23/20 08/13/20 06/23/20 History metoprolol succinate 25 mg PO DAILY@06/23/20 08/13/20 08/13/20 History simvastatin 40 mg PO DAILY@06/23/20 08/13/20 06/22/20 History warfarin 3 mg PO DAILY@06/23/20 08/13/20 08/13/20 History isosorbide mononitrate 30 mg 30 mg PO DAILY@07 #90 tab 06/25/20 08/13/20 08/13/20 Rx tablet,extended release 24 hr tiotropium bromide 2.5 See Rx Instructions .ROUTE 06/25/20 08/13/20 Unknown Rx mcg/actuation mist for inhalation .COMPLEX #4 g prednisone 1 mg tablet See Rx Instructions PO DAILY #200 07/29/20 08/13/20 Unknown Rx tab prednisone 5 mg tablet See Rx Instructions PO DAILY #90 07/29/20 08/13/20 Unknown Rx tab cephalexin 500 mg PO TID@07,,08/13/20 08/13/20 Unknown History clindamycin HCl 300 mg PO TID@,,08/13/20 08/13/20 Unknown History hydroxychloroquine 200 mg PO BID@0700,1900 08/13/20 08/13/20 08/13/20 History lemborexant [Dayvigo] 5 mg PO BEDTIME@2200 08/13/20 08/13/20 Unknown History melatonin 10 mg PO BEDTIME PRN 08/13/20 08/13/20 Unknown History potassium chloride 10 meq PO TID@07,,08/13/20 08/13/20 08/13/20 History zolpidem 10 mg PO BEDTIME PRN 08/13/20 08/13/20 Unknown History Allergies Allergy/AdvReac Type Severity Reaction Status Date / Time No Known Allergies Allergy Verified 08/06/20 09:47 PFSH Acute PFSH: Medical History (Updated 08/14/20 @ 07:38 by Ashu Roland MD) Anticoagulated on warfarin ASHD (arteriosclerotic heart disease) Atrial flutter CHF (congestive heart failure) Depression Hyperlipidemia Hypertension Osteoporosis PVD (peripheral vascular disease) Surgical History (Updated 08/14/20 @ 07:37 by Ashu Roland MD) Hx of coronary angioplasty Hx of hysterectomy Hx of mitral valve repair Hx of sinus surgery Hx of tonsillectomy Family History Family/Other Diabetes Cancer Heart disease Katja-Danlos syndrome type VIII Social History Smoking and tobacco status: current some day smoker cigarettes Packs smoked per day: 0.5 Years cigarettes smoked: 40 Second hand smoke exposure: No Alcohol intake: never Lives independently: Yes Marital status: Current occupational status: retired History of recent travel: No Current gender identity: Female Vitals/I&O/Wt Last Vital Signs Temp 98.4 F 08/13/20 22:00 Pulse 95 08/13/20 22:00 Resp 16 08/13/20 22:00 BP 128/66 08/13/20 22:00 Pulse Ox 95 08/13/20 22:00 08/13/20 08/13/20 08/13/20 06:59 14:59 22:59 Intake Total 1999 Balance 1999 Weight last 48 hrs Weight 64.41 kg Physical Exam Const: COMMON NORMALS: no acute distress, patient oriented x3 and alert HENMT: COMMON NORMALS: normocephalic and atraumatic HEAD & SCALP: normocephalic and atraumatic MOUTH: Normal oral and palatal mucosa present and lip normal Eye: COMMON NORMALS: Equal, round and reactive pupils present, EOMs intact bilaterally, conjunctivae normal and no scleral icterus CONJUNCTIVA: Yes conjunctivae normal PUPIL: Yes Equal, round and reactive pupils present Neck/C-Spine: COMMON NORMALS: full ROM, supple and no JVD Lymph: LYMPHATIC: no lymphadenopathy noted Chest: COMMONS NORMALS: normal inspection of the chest CHEST: Yes Symmetrical chest wall rise Resp: COMMON NORMALS: normal respiratory effort, No retractions, No use of accessory muscles and clear to auscultation bilaterally AUSCULTATION: clear to auscultation bilaterally Cardio: COMMON NORMALS: no JVD, S1 normal heart sound present and S2 normal heart sound present RHYTHM: abnormal rhythm irregularly irregular HEART SOUNDS: S1 normal heart sound present and S2 normal heart sound present GI: COMMON NORMALS: Normal to inspection, nondistended, normoactive bowel sounds present, Soft to palpation, non-tender, No hepatosplenomegaly present and no bruits PALPATION: Yes Soft to palpation and Yes No hepatosplenomegaly present : COMMON NORMALS: Yes no CVA tenderness BLADDER/KIDNEY EXAM: Yes no CVA tenderness Back/Pelvis: COMMON NORMALS: no CVA tenderness and thoraco-lumbar ROM normal Extremity: COMMON NORMALS: no clubbing, cyanosis or edema, no calf tenderness and no pedal edema Neuro: COMMON NORMALS: patient oriented x3, CN's II-XII intact bilaterally and no focal motor deficits SENSORIUM/ORIENTATION: Yes alert Psych: COMMON NORMALS: mental status grossly normal, Normal thought process present, cooperative, normal affect and speech normal SPEECH: Yes normal speech THOUGHT PROCESS: Normal thought process present Skin: NARRATIVE SKIN EXAM: Multiple small bruises on bilateral upper extremities and lower extremities. A&P Assessment and plan (1) Fall: Status: Acute (2) Multiple rib fractures: Status: Acute (3) Anticoagulated on warfarin: Status: Chronic (4) Hx of mitral valve repair: Status: Chronic (5) COPD (chronic obstructive pulmonary disease): Status: Chronic (6) CHF (congestive heart failure): Status: Chronic Qualifiers: Heart failure chronicity: acute on chronic Heart failure type: diastolic Qualified Code(s): I50.33 - Acute on chronic diastolic (congestive) heart failure (7) Emphysema lung: Status: Chronic (8) Hypertension: Status: Chronic Qualifiers: Hypertension type: essential hypertension Qualified Code(s): I10 - Essential (primary) hypertension Additional A&P Information Patient admitted for monitoring. Given patient has a small intercostal hematoma, will need to hold Coumadin for at least a day. Repeat chest x-ray in a.m. May have to resume anticoagulation if hematoma is stable. Continue amiodarone for history of A. fib Bronchodilators Continue CAD medications-Imdur and Ranexa. Monitor PT and INR Supplemental oxygen as needed. IV opioids as needed for pain. Patient denies ever going into alcohol withdrawal.She also denies regular alcohol intake in which case risk for alcohol withdrawal will be low. Monitor for alcohol withdrawal. Ativan IV as needed for alcohol withdrawal. Consult Attestations Medical Necessity Statement: Patient with chest trauma, multiple rib fractures and on anticoagulation. She will need to be hospitalized and monitored for complications. She is expected to spend less than 2 midnights. Time Spent in Patient Care: 55 minutes. Coding Level of Care Code Acute Business Operations Manager for [facility] Fwd Exam Comprehensive Diagnoses Fall W19.XXXA Multiple rib fractures S22.49XA Anticoagulated on warfarin Z79.01 Hx of mitral valve repair Z98.890 COPD (chronic obstructive pulmonary disease) J44.9 CHF (congestive heart failure) I50.33 Heart failure chronicity: acute on chronic Heart failure type: diastolic Emphysema lung J43.9 Hypertension I10 Hypertension type: essential hypertension
[2020-08-13] MEDS: cefTRIAXone 1,000 MG in sodium chloride 0.9% (plus) 50 ML 100 MG IV (23:09)
[2020-08-13] MEDS: ranolazine (12HR) 500 mg Tablet PO (23:09)
[2020-08-13] MEDS: morphine 4 mg/mL SDV 1 mL IVP (23:17)
--- NOTE | 2020-08-13 23:30 | ECG_ITS ---
[facility] Test Date: 2020-08-13 Pat Name: Clementina Mcghee Department: Room: 278 Gender: Female Low Pressure Boiler Tender: SAM BOWENSB: 1955 Requested By: Dioni Randle Order Number: [id number] Andrea MD: Con Hdez M.D. Measurements Intervals [place] Rate: 86 P: DE: QRS: 8 QRSD: 177 T: 117 QT: 436 QTc: 524 Interpretive Statements SINUS RHYTHM LEFT BUNDLE BRANCH BLOCK [120+ ms QRS DURATION, 80+ ms Q/S IN V1/V2, 85+ ms R IN I/aVL/V5/V6] Compared to ECG 08/13/2020 17:53:47 No significant changes Electronically Signed On 08-15-2020 11:11:54 CUFF SETTER LOCKSTITCH by Con Hdez M.D. [email or web address] ([email or web address])[email or web address]/[id number]
[2020-08-14] VITALS (12 sets, daily range): BP systolic 92–124; BP diastolic 57–83; PULSE 70–87; RESP 14–20; TEMP 36.3–36.9; O2SAT 92–97
[2020-08-14 00:01] LABS: INR 2.24 (0.8-1.2)
[2020-08-14 00:09] LABS: Troponin 5 6HR 26.59 ng/L (0-10); Troponin 5 6HR Delta 3.59 ng/L (0-12)
[2020-08-14] MEDS: morphine 4 mg/mL SDV 1 mL IVP ×3 (04:46→15:39)
[2020-08-14 05:17] LABS: INR 2.27 (0.8-1.2)
[2020-08-14] MEDS: hydroxychloroquine 200 mg Tablet PO ×2 (06:10→18:42)
[2020-08-14] MEDS: metoprolol succinate ER (24 HR) 25 mg Tablet PO (06:10)
[2020-08-14] MEDS: isosorbide mononitrate ER 30 mg Tablet PO (06:10)
[2020-08-14] MEDS: potassium chloride ER 10 mEq Tablet PO ×3 (06:10→18:36)
[2020-08-14] MEDS: amiodarone 200 mg Tablet PO (06:10)
--- NOTE | 2020-08-14 06:20 | XR_ITS ---
WS: [id number] Portable AP upright chest, 08/14/2020 Clinical Data: cough Comparison: Portable chest, 08/13/2020. Findings: The interstitial thickening throughout both lobes again is seen. The heart is at the upper limits of normal. No pneumonia or pneumothorax is seen. There are no nodules or masses. Midline samuels otomy sutures are present along with an artificial heart valve. There is a left subclavian stent. XR/XR chest 1V portable [id number] Impression: 1. No change in bilateral interstitial infiltrate. 2. Cardiomegaly and atherosclerosis.
--- NOTE | 2020-08-14 08:29 | P.CONIM_ITS ---
Providers/Reason For Consult Consulting Physican/Specialty*: Dr. Nunez/cardiothoracic surgery Reason for Consult*: Traumatic left-sided rib fractures Requesting Physcian: Dr. Cramer/ emergency medicine Attending Physician: Adiel Allison MD Primary Care Provider: JUSTIN Mccollum History of Present Illness History of Present Illness Clementina Mcghee is a pleasant 65 year old female who presented to [facility] emergency department yesterday late afternoon after falling around 1 PM at home down some steps striking the left side of her chest wall. She complained of shortness of breath and substantial left-sided chest discomfort. She also reports that she thinks she may have lost consciousness after falling for about 2 minutes. Extensive evaluation emergency department to include CT scan of the chest abdomen and pelvis revealed rib fractures 7 8 and 9 on the left with a displaced left eighth rib fracture. No pneumothorax or substantial pulmonary contusion noted. She is on warfarin for longstanding atrial fibril lation and is status post mitral valve repair several years ago. She was admitted for pulmonary toilet and close observation with a high risk for delayed bleeding due to anticoagulation or delayed pulmonary contusion. She does have a history of COPD and is on prednisone for arthritis. She is followed by Dr. Rizo from [facility] as well as our rheumatology department. Significant past history includes mitral valve repair/coronary stents x2/and left subclavian artery stenting. She states she does use intermittent oxygen through an oxygen concentrator which belonged to a family member. She has never been personally prescribed oxygen therapy. Review of Systems Const: Denies: fever(s), chills, change in appetite, change in weight, fatigue or night sweats Eyes: Denies: change in vision or blurry vision ENMT: Denies: odynophagia or hoarseness Card: Reports: chest pain (Left-sided secondary to trauma), palpitations, irregular heart rhythm (Chronic atrial fibrillation) and dyspnea on exertion; Denies: edema or orthopnea Resp: Reports: dyspnea; Denies: productive cough, hemoptysis or chest congestion GI: Denies: abdominal pain, nausea, vomiting, dysphagia, heartburn or change in bowel habits : Denies: dysuria, urinary frequency, urinary urgency or urinary hesitancy Musc: Denies: extremity pain or extremity swelling Skin/Breast: Denies: rash Neuro: Denies: headache(s), numbness in extremities, weakness in extremities or sensory changes Psych: Denies: anxiety, depression or change in appetite Endo: Denies: polyuria, polydipsia or cold intolerance Duong/Lymph: Reports: easy bruising; Denies: easy bleeding, petechiae or enlarged lymph nodes Meds/Allergies Home Medications and Allergies Home Medications Medication Instructions Recorded Confirmed Last Taken Type albuterol sulfate 2.5 mg INHALATION Q4H PRN 08/29/19 08/13/20 Unknown History ascorbate calcium (vitamin C) 500 1 gm PO DAILY PRN tab 08/29/19 08/13/20 Unknown History mg tablet acetaminophen [Tylenol Extra 1,000 mg PO PRN 12/23/19 08/13/20 Unknown History Strength] calcium carbonate [Calcium 500] 500 mg PO DAILY PRN 12/23/19 08/13/20 12/22/19 History INR #1 ea 03/23/20 08/13/20 Unknown Rx nitroglycerin 0.4 mg sublingual 0.4 mg SUBLINGUAL Q5M PRN #30 tab 04/02/20 08/13/20 Unknown Rx tablet tramadol 50 mg tablet 50 mg PO TID PRN #30 tab 05/06/20 08/13/20 08/11/20 Rx ranolazine 500 mg tablet,extended 500 mg PO Q12H #180 tab 06/02/20 08/13/20 08/13/20 Rx release,12 hr albuterol sulfate [ProAir HFA] 2 puff INHALATION Q4H PRN 06/23/20 08/13/20 Unknown History amiodarone [Pacerone] 200 mg PO DAILY@06/23/20 08/13/20 08/13/20 History citalopram 10 mg PO DAILY@06/23/20 08/13/20 06/22/20 History furosemide 40 - 60 mg PO DAILY@06/23/20 08/13/20 08/13/20 History lisinopril 10 mg PO DAILY@06/23/20 08/13/20 06/23/20 History metoprolol succinate 25 mg PO DAILY@06/23/20 08/13/20 08/13/20 History simvastatin 40 mg PO DAILY@06/23/20 08/13/20 06/22/20 History warfarin 3 mg PO DAILY@19 06/23/20 08/13/20 08/13/20 History isosorbide mononitrate 30 mg 30 mg PO DAILY@07 #90 tab 06/25/20 08/13/20 08/13/20 Rx tablet,extended release 24 hr tiotropium bromide 2.5 See Rx Instructions .ROUTE 06/25/20 08/13/20 Unknown Rx mcg/actuation mist for inhalation .COMPLEX #4 g prednisone 1 mg tablet See Rx Instructions PO DAILY #200 07/29/20 08/13/20 Unknown Rx tab prednisone 5 mg tablet See Rx Instructions PO DAILY #90 07/29/20 08/13/20 Unknown Rx tab cephalexin 500 mg PO TID@,,08/13/20 08/13/20 Unknown History clindamycin HCl 300 mg PO TID@07,,08/13/20 08/13/20 Unknown History hydroxychloroquine 200 mg PO BID@0700,1900 08/13/20 08/13/20 08/13/20 History lemborexant [Dayvigo] 5 mg PO BEDTIME@2200 08/13/20 08/13/20 Unknown History melatonin 10 mg PO BEDTIME PRN 08/13/20 08/13/20 Unknown History potassium chloride 10 meq PO TID@,,08/13/20 08/13/20 08/13/20 History zolpidem 10 mg PO BEDTIME PRN 08/13/20 08/13/20 Unknown History Allergies Allergy/AdvReac Type Severity Reaction Status Date / Time No Known Allergies Allergy Verified 08/06/20 09:47 Current Medications Current Medications Generic Name Dose Route Start Last Admin Trade Name Freq PRN Reason Stop Dose Admin Amiodarone HCl 200 mg 08/14/20 07:00 08/14/20 06:10 Amiodarone 200 Mg Tablet PO 200 mg DAILY@07 SREEDHAR Administration Hydroxychloroquine Sulfate 200 mg 08/14/20 07:00 08/14/20 06:10 Hydroxychloroquine 200 Mg Tablet PO 200 mg BID@0700,1900 SREEDHAR Administration Ceftriaxone Sodium 1,000 mg/ 50 mls @ 100 mls/hr 08/13/20 22:30 08/13/20 23:49 Sodium Chloride IV Infused Q24H SREEDHAR Infusion Protocol Isosorbide Mononitrate 30 mg 08/14/20 07:00 08/14/20 06:10 Isosorbide Mononitrate Er 30 Mg Tablet PO 30 mg DAILY@07 SREEDHAR Administration Metoprolol Succinate 25 mg 08/14/20 07:00 08/14/20 06:10 Metoprolol Succinate Er (24 Hr) 25 Mg Tablet PO 25 mg DAILY@07 SREEDHAR Administration Morphine Sulfate 4 mg 08/13/20 22:28 08/14/20 04:46 Morphine 4 Mg/Ml Sdv 1 Ml IVP 4 mg Q4H PRN Administration SEVERE PAIN Potassium Chloride 10 meq 08/14/20 07:00 08/14/20 06:10 Potassium Chloride Er 10 Meq Tablet PO 10 meq TID@07,12,19 SREEDHAR Administration Ranolazine 500 mg 08/13/20 22:30 08/13/20 23:09 Ranolazine (12hr) 500 Mg Tablet PO 500 mg Q12H SREEDHAR Administration PFSH Acute PFSH: Medical History Anticoagulated on warfarin ASHD (arteriosclerotic heart disease) Atrial flutter CHF (congestive heart failure) Depression Hyperlipidemia Hypertension Osteoporosis PVD (peripheral vascular disease) Surgical History Hx of coronary angioplasty Hx of hysterectomy Hx of mitral valve repair Hx of sinus surgery Hx of tonsillectomy Family History Family/Other Diabetes Cancer Heart disease Katja-Danlos syndrome type VIII Social History Smoking and tobacco status: current some day smoker cigarettes Packs smoked per day: 0.5 Years cigarettes smoked: 40 Second hand smoke exposure: No Alcohol intake: never Lives independently: Yes Marital status: Current occupational status: retired History of recent travel: No Current gender identity: Female Vitals/I&O/Wt Last Vital Signs Temp 98.5 F 08/14/20 07:43 Pulse 82 08/14/20 07:43 Resp 17 08/14/20 07:43 BP 124/83 08/14/20 07:43 Pulse Ox 96 08/14/20 07:43 08/13/20 08/14/20 08/14/20 22:59 06:59 14:59 Intake Total 1999 50 / 0 Output Total 300 / 300 Balance 1700 / 1700 50 / 1750 Weight last 48 hrs Weight 142 lb Physical Exam Const: COMMON NORMALS: patient oriented x3 and alert ORIENTATION/CONSCIOUSNESS: Yes oriented to person, Yes oriented to place and Yes oriented to time HENMT: COMMON NORMALS: normocephalic HEAD & SCALP: normocephalic; no cranial bruits Neck/C-Spine: COMMON NORMALS: full ROM, supple, no JVD and No carotid bruits GENERAL: Yes trachea midline CERVICAL SPINE: Yes cervical ROM normal Chest: COMMONS NORMALS: normal inspection of the chest and normal palpation of entire chest wall Resp: COMMON NORMALS: normal respiratory effort, No use of accessory muscles, clear to auscultation bilaterally and percussion normal EFFORT & INSPECTION: Yes able to speak in complete sentences and Yes symmetric chest movement AUSCULTATION: clear to auscultation bilaterally PERCUSSION: percussion normal Cardio: COMMON NORMALS: no JVD, regular rate, S1 normal heart sound present, S2 normal heart sound present, No gallops present (Cardio) and No rub (Cardio); negative for regular rhythm JUGULAR VENOUS DISTENTION: no JVD RATE: regular rate RHYTHM: abnormal rhythm HEART SOUNDS: S1 normal heart sound present and S2 normal heart sound present PERIPHERAL PULSES: radial pulses present positive right 2+ and positive left 1+ Neuro: COMMON NORMALS: patient oriented x3, no focal motor deficits and no sensory deficits noted SENSORIUM/ORIENTATION: Yes alert, Yes oriented to person, Yes oriented to place and Yes oriented to time GAIT: Yes Normal gait present Coding Level of Care Code Acute 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
[2020-08-14] MEDS: ketorolac 30 mg/mL INJ IVP ×2 (08:37→18:36)
[2020-08-14] MEDS: ranolazine (12HR) 500 mg Tablet PO ×2 (10:44→22:14)
--- NOTE | 2020-08-14 11:18 | PM.PN ---
Subjective Subjective: Interval history: Patient is still complaining of significant pain on her lt outer chest wall. No significant swelling noted. She deny any SOB though because of the significant pain she has difficulty breathing. Currently she is saturating well on R.A Her other vitals and labs have been reviewed. Medications: Reviewed: Yes Vitals/I&O/Wt Last Vital Signs Temp 98.5 F 08/14/20 07:43 Pulse 82 08/14/20 07:43 Resp 16 08/14/20 10:44 BP 124/83 08/14/20 07:43 Pulse Ox 96 08/14/20 10:44 08/13/20 08/14/20 08/14/20 22:59 06:59 14:59 Intake Total 1999 / 1999 50 / 2050 120 / 120 Output Total 300 / 300 Balance 1700 / 1700 50 / 1750 120 / 120 Weight last 48 hrs Weight 64.41 kg Physical Exam Const: COMMON NORMALS: patient oriented x3 HENMT: COMMON NORMALS: normocephalic and atraumatic HEAD & SCALP: normocephalic and atraumatic Chest: COMMONS NORMALS: normal inspection of the chest CHEST: Yes Symmetrical chest wall rise Resp: COMMON NORMALS: clear to auscultation bilaterally EFFORT & INSPECTION: Yes symmetric chest movement AUSCULTATION: clear to auscultation bilaterally Cardio: COMMON NORMALS: regular rate, regular rhythm, S1 normal heart sound present, S2 normal heart sound present, No gallops present (Cardio), No murmurs present (Cardio), No rub (Cardio) and Peripheral pulses 2+ throughout RATE: regular rate RHYTHM: regular rhythm HEART SOUNDS: S1 normal heart sound present and S2 normal heart sound present PERIPHERAL PULSES: Peripheral pulses 2+ throughout GI: COMMON NORMALS: Normal to inspection, nondistended, normoactive bowel sounds present, Soft to palpation, non-tender, No hepatosplenomegaly present and no masses AUSCULTATION: Yes normoactive bowel sounds PALPATION: Yes Soft to palpation and Yes No hepatosplenomegaly present RECTAL EXAM: deferred Extremity: COMMON NORMALS: no clubbing, cyanosis or edema and no pedal edema Neuro: COMMON NORMALS: patient oriented x3 Data : 08/13/20 17:53 08/13/20 17:53 A&P Assessment and plan (1) Fall: Status: Acute (2) Multiple rib fractures: Status: Acute (3) Anticoagulated on warfarin: Status: Chronic (4) Hx of mitral valve repair: Status: Chronic (5) COPD (chronic obstructive pulmonary disease): Status: Chronic (6) CHF (congestive heart failure): Status: Chronic Qualifiers: Heart failure chronicity: acute on chronic Heart failure type: diastolic Qualified Code(s): I50.33 - Acute on chronic diastolic (congestive) heart failure (7) Emphysema lung: Status: Chronic (8) Hypertension: Status: Chronic Qualifiers: Hypertension type: essential hypertension Qualified Code(s): I10 - Essential (primary) hypertension Additional A&P Information Patient admitted for monitoring. Given patient has a small intercostal hematoma, will need to hold Coumadin for at least a day. Repeat chest x-ray in a.m. May have to resume anticoagulation if hematoma is stable. Continue amiodarone for history of A. fib Bronchodilators Continue CAD medications-Imdur and Ranexa. Monitor PT and INR Supplemental oxygen as needed. IV opioids as needed for pain. Patient denies ever going into alcohol withdrawal.She also denies regular alcohol intake in which case risk for alcohol withdrawal will be low. Monitor for alcohol withdrawal. Ativan IV as needed for alcohol withdrawal. Attestations Medical Necessity Statement*: Patient with chest trauma, multiple rib fractures and on anticoagulation. She will need to be hospitalized and monitored for complications. She is expected to spend less than 2 midnights. Coding Level of Care Code Acute Banking Manager for [facility] Fwd Exam Detailed Diagnoses Fall W19.XXXA Multiple rib fractures S22.49XA Anticoagulated on warfarin Z79.01 Hx of mitral valve repair Z98.890 COPD (chronic obstructive pulmonary disease) J44.9 CHF (congestive heart failure) I50.33 Heart failure chronicity: acute on chronic Heart failure type: diastolic Emphysema lung J43.9 Hypertension I10 Hypertension type: essential hypertension
[2020-08-14] MEDS: guaiFENesin 100 mg/5 mL UDC 10 mL 200 MG PO (13:17)
[2020-08-14] MEDS: docusate sodium 100 mg Capsule PO (13:17)
--- NOTE | 2020-08-14 13:59 | PC.CHAP ---
Pastoral Care Encounter/Spiritual Assessment Type of Contact [] Declined rehabilitation medicine physician visit [] Patient/Family/Request visit [] Outpatient visit [] Follow-up visit [] Physician referral [] Code/Alert [xx] Routine visit [] Staff referral [] Actively dying [] Patient sleeping [] Family support [] [] Out of room [] Palliative care [] [] Receiving care in room [] Pre-surgical visit [] Trauma [] Long length of stay [] ICU visit [] Other: Relational/Emotional Strength [xx] Patient feels connected with others/family/visitors/staff [] Distress [] Loneliness/isolation [] Abandonment Spirituality of Patient [xx] Person of Dawna [] Attends Anglican of their Dawna [xx] Believes in Prayer [] Reads Bible or Judaism materials [] There are Spiritual issues to be addressed 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 Interventions [xx] Prayer [xx] Active listening [xx] Non-anxious presence [] Spiritual/emotional support [] Crisis/trauma care [] Spiritual counseling [] Bereavement support [] Provided bereavement packet [] Provided Bible/devotional materials [] Provided toy/stuffed animal, coloring book to patient or family member [] Provided Communion [] Anointing/[place] [] Salvation [] Completed spiritual assessment [] Other: Impact on Illness or Injury [] Angry [] Fearful [] Anxious [] Often cries [] Exhaustion [] Unable to work [] Unable to attend adventist [] Unable to walk/stand [] Unable to read [] Unable to drive [] Unable to eat/drink [] Unable to sleep [] Unable to be with family [] Patient intubated [] Other: Summary Elderly patient wanted prayer and visiting time as well. She was pleasant to talk to but feeling lonely. Time spent with patient
[2020-08-14] MEDS: atorvastatin 40 mg Tablet 20 MG PO (18:36)
[2020-08-14] MEDS: diphenhydrAMINE 25 mg Capsule PO (18:42)
[2020-08-14] MEDS: cefTRIAXone 1,000 MG in sodium chloride 0.9% (plus) 50 ML 100 MG IV (22:12)
[2020-08-15] VITALS (15 sets, daily range): BP systolic 92–122; BP diastolic 55–80; PULSE 72–90; RESP 16–22; TEMP 36.5–36.7; O2SAT 90–97
[2020-08-15] MEDS: morphine 4 mg/mL SDV 1 mL IVP (05:04)
[2020-08-15 05:32] LABS: Basophils # 0.1 10^3/uL (0.0-0.1); Basophils % 0.9 %; Eosinophils # 0.2 10^3/uL (0.0-0.8); Eosinophils % 3.1 %; Hematocrit 37.2 % (37.0-47.0); Hemoglobin 11.7 g/dL (11.5-15.3); Lymphocytes % 15.7 %; Mean Corpuscular HGB Conc 31.5 g/dL (30.0-36.0); Mean Corpuscular Hemoglobin 32.4 pg (28.0-34.0); Mean Platelet Volume 10.1 fL (7.4-10.4); Monocytes # 0.7 10^3/uL (0.2-0.9); Monocytes % 10.5 %; Neutrophils # 4.43 10^3/uL (1.8-7.7); Neutrophils % 69.5 %; Nucleated Red Blood Cells % 0 %; Platelet Count 285 10^3/cmm (130-400); Red Blood Count 3.61 10^6/uL (4.1-5.3); Red Cell Distribution Width 15.4 % (12.1-15.1); White Blood Count 6.4 10^3/uL (4.0-10.0)
[2020-08-15 05:47] LABS: INR 1.81 (0.8-1.2)
[2020-08-15 05:54] LABS: Anion Gap 13.9 (5-19); Blood Urea Nitrogen 20 mg/dL (8-23); Calcium 9.3 mg/dL (8.5-10.5); Carbon Dioxide 23 mmol/L (22-29); Chloride 104 mmol/L (98-107); Glomerular Filtration Rate 83.5 mL/min (90-130); Glucose 101 mg/dL (65-115); Osmolality Calculated 285 mOsm/kg (285-295); Potassium 4.9 mmol/L (3.5-5.1); Sodium 136 mmol/L (136-145)
--- NOTE | 2020-08-15 06:00 | XRR_ITS ---
PROCEDURE INFORMATION: Exam: XR Chest, 1 View Exam date and time: 08/15/2020 5:55 AM Age: 65 years old Clinical indication: Injury or trauma; Fracture, traumatic; Closed fracture; Multiple ribs; Left; Patient HX: F/u for rib fracture and pneumonia; Additional info: 2 days status post rib fracture secondary to fall TECHNIQUE: Imaging protocol: XR of the chest Views: 1 view. COMPARISON: CR XR chest 1V portable [id number] 08/14/2020 6:26 AM FINDINGS: Lungs: Persistent asymmetric prominence of interstitial markings on the left, in association with haziness of the left lung, loss of volume, and worsened opacity in the left lower lobe, which may represent a combination of small pleural effusion and adjacent atelectasis. Pneumonia should be excluded clinically. No consolidation on the right. No pneumothorax. Pleural spaces: See Lungs finding. Heart/Mediastinum: Prosthetic cardiac valve noted. Stable cardiomediastinal silhouette. Vasculature: A vascular stent is seen projecting over the expected location of the proximal left subclavian artery. Bones/joints: Left-sided rib fractures noted. Median sternotomy changes seen. XR/XR chest 1V portable [id number] IMPRESSION: Interval worsening of left lower lung airspace opacity, which may represent a combination of small pleural effusion and adjacent atelectasis. Pneumonia should be excluded clinically.
[2020-08-15] MEDS: amiodarone 200 mg Tablet PO (06:14)
[2020-08-15] MEDS: ketorolac 30 mg/mL INJ IVP ×2 (06:14→19:36)
[2020-08-15] MEDS: metoprolol succinate ER (24 HR) 25 mg Tablet PO (06:14)
[2020-08-15] MEDS: isosorbide mononitrate ER 30 mg Tablet PO (06:14)
[2020-08-15] MEDS: potassium chloride ER 10 mEq Tablet PO ×3 (06:14→18:33)
[2020-08-15] MEDS: hydroxychloroquine 200 mg Tablet PO ×2 (06:19→18:33)
--- NOTE | 2020-08-15 06:50 | PC.NURSE ---
End of shift summary Patient slept well through the night until about 3 am. Patient then had a lot of pain. Patient had the most relief from the Hydromorphone pill. Patient is A&Ox3. Respirations even and non-labored on room air.
--- NOTE | 2020-08-15 07:05 | PC.NURSE ---
Report to Daniel HYLTON
[2020-08-15] MEDS: ipratropium-albuterol 3 mL Neb INHALATION (08:04)
[2020-08-15] MEDS: HYDROmorphone 1 mg/mL INJ 1 mL 2 MG IVP ×3 (08:15→21:41)
[2020-08-15] MEDS: ranolazine (12HR) 500 mg Tablet PO ×2 (09:58→21:33)
--- NOTE | 2020-08-15 10:57 | P.PN_ITS ---
Subjective Subjective: Interval history: Ms. Mcghee was resting well on my rounds this morning. Her chest wall discomfort is under better control. Chest x-ray this morning does reveal a bit more haziness in the left costodiaphragmatic angle. She does fairly well with cough and incentive spirometry. I have conferred with my colleagues from our hospitalist service, Dr. Allison. Vitals/I&O/Wt Last Vital Signs Temp 98.1 F 08/15/20 07:49 Pulse 85 08/15/20 08:09 Resp 19 H 08/15/20 08:15 BP 106/68 08/15/20 07:49 Pulse Ox 94 08/15/20 08:15 08/14/20 08/15/20 08/15/20 22:59 06:59 14:59 Intake Total 490 / 730 300 / 1030 240 / 240 Output Total 650 / 650 Balance 490 / 405 300 / 705 -410 / -410 Weight last 48 hrs Weight 142 lb Physical Exam Chest: COMMONS NORMALS: normal inspection of the chest (Minimal ecchymosis.) and normal palpation of entire chest wall Resp: COMMON NORMALS: normal respiratory effort and No use of accessory muscles EFFORT & INSPECTION: Yes symmetric chest movement, No tachypneic and No tracheal deviation AUSCULTATION: diminished lung sounds on the left in the lower lung feliciano (Slightly diminished on the left laterally.) Cardio: COMMON NORMALS: regular rate; negative for regular rhythm RATE: regular rate RHYTHM: abnormal rhythm and abnormal rhythm (Chronic A. fib) Extremity: GENERAL: Yes normal exam except as noted (Some mild abrasions at t he left forearm distally near the elbow from her re) Data : 08/15/20 05:00 08/15/20 05:00 A&P Assessment and plan (1) Multiple rib fractures: Making steady progress from recent traumatic left seventh eighth and ninth rib fractures. I would concentrate on aggressive pulmonary toilet and ambulation today. If x-ray is stable in the morning and clinically she is doing well, I think it would be safe for her to be discharged. Status: Acute Attestations Medical Necessity Statement*: Left-sided traumatic rib fractures Time Spent in Patient Care: less than 15 minutes Coding Level of Care Code Acute Space And Missile Operations for [facility] Fwd Diagnoses Multiple rib fractures S22.49XA
--- NOTE | 2020-08-15 11:31 | P.PN_ITS ---
Subjective Subjective: Interval history: Ms. Mcghee was resting well. Her chest wall discomfort is under better control wiith I.V Hydromorphone . Chest x-ray this morning does reveal a bit more haziness in the left costodiaphragmatic angle. She does fairly well with cough and incentive spirometry. Medications: Reviewed: Yes Vitals/I&O/Wt Last Vital Signs Temp 98.1 F 08/15/20 07:49 Pulse 85 08/15/20 08:09 Resp 19 H 08/15/20 08:15 BP 106/68 08/15/20 07:49 Pulse Ox 94 08/15/20 08:15 08/14/20 08/15/20 08/15/20 22:59 06:59 14:59 Intake Total 490 / 730 300 / 1030 240 / 240 Output Total 650 / 650 Balance 490 / 405 300 / 705 -410 / -410 Weight last 48 hrs Weight 64.41 kg Physical Exam Const: COMMON NORMALS: patient oriented x3 HENMT: COMMON NORMALS: normocephalic and atraumatic HEAD & SCALP: normocephalic and atraumatic Chest: COMMONS NORMALS: normal inspection of the chest CHEST: Yes Symmetrical chest wall rise Resp: COMMON NORMALS: clear to auscultation bilaterally EFFORT & INSPECTION: Yes symmetric chest movement AUSCULTATION: clear to auscultation bilaterally Cardio: COMMON NORMALS: regular rate, regular rhythm, S1 normal heart sound present, S2 normal heart sound present, No gallops present (Cardio), No murmurs present (Cardio), No rub (Cardio) and Peripheral pulses 2+ throughout RATE: regular rate RHYTHM: regular rhythm HEART SOUNDS: S1 normal heart sound present and S2 normal heart sound present PERIPHERAL PULSES: Peripheral pulses 2+ throughout GI: COMMON NORMALS: Normal to inspection, nondistended, normoactive bowel sounds present, Soft to palpation, non-tender, No hepatosplenomegaly present and no masses AUSCULTATION: Yes normoactive bowel sounds PALPATION: Yes Soft to palpation and Yes No hepatosplenomegaly present RECTAL EXAM: deferred Extremity: COMMON NORMALS: no clubbing, cyanosis or edema and no pedal edema Neuro: COMMON NORMALS: patient oriented x3 Data : 08/15/20 05:00 08/15/20 05:00 A&P Assessment and plan (1) Fall: Status: Acute (2) Multiple rib fractures: Status: Acute (3) Anticoagulated on warfarin: Status: Chronic (4) Hx of mitral valve repair: Status: Chronic (5) COPD (chronic obstructive pulmonary disease): Status: Chronic (6) CHF (congestive heart failure): Status: Chronic Qualifiers: Heart failure chronicity: acute on chronic Heart failure type: diastolic Qualified Code(s): I50.33 - Acute on chronic diastolic (congestive) heart failure (7) Emphysema lung: Status: Chronic (8) Hypertension: Status: Chronic Qualifiers: Hypertension type: essential hypertension Qualified Code(s): I10 - Essential (primary) hypertension Additional A&P Information Patient admitted for monitoring. Given patient has a small intercostal hematoma, will need to hold Coumadin for at least a day. Repeat chest x-ray in a.m. May have to resume anticoagulation if hematoma is stable. Continue amiodarone for history of A. fib Bronchodilators Continue CAD medications-Imdur and Ranexa. Monitor PT and INR Supplemental oxygen as needed. IV opioids as needed for pain. Patient denies ever going into alcohol withdrawal.She also denies regular alcohol intake in which case risk for alcohol withdrawal will be low. Monitor for alcohol withdrawal. Ativan IV as needed for alcohol withdrawal. Attestations Medical Necessity Statement*: Patient needs to be in hospital for pain management due to multiple rib fracture as well as for monitoring of possible complications due to pulmonary contusion as well as the need to hold Ac to prevent the possibilty of hematoma formation Coding Level of Care Code Acute Weld Inspector for [facility] Fwd Exam Detailed Diagnoses Fall W19.XXXA Multiple rib fractures S22.49XA Anticoagulated on warfarin Z79.01 Hx of mitral valve repair Z98.890 COPD (chronic obstructive pulmonary disease) J44.9 CHF (congestive heart failure) I50.33 Heart failure chronicity: acute on chronic Heart failure type: diastolic Emphysema lung J43.9 Hypertension I10 Hypertension type: essential hypertension
[2020-08-15] MEDS: ondansetron 2 mg/ML SDV 2 mL 4 MG IVP (14:37)
--- NOTE | 2020-08-15 14:41 | PC.NURSE ---
Patient having some nausea. I gave 4mg of zofran to the patient, then will change her bandages covering her skin tears.
[2020-08-15] MEDS: atorvastatin 40 mg Tablet 20 MG PO (18:33)
[2020-08-15] MEDS: cefTRIAXone 1,000 MG in sodium chloride 0.9% (plus) 50 ML 100 MG IV (21:34)
[2020-08-16] VITALS (10 sets, daily range): BP systolic 94–107; BP diastolic 64–71; PULSE 77–98; RESP 16–20; TEMP 36.4–37; O2SAT 90–97
[2020-08-16] MEDS: oxyCODONE-APAP 5-325 mg Tablet 1 TAB PO ×2 (04:59→09:39)
[2020-08-16 05:34] LABS: INR 1.34 (0.8-1.2)
[2020-08-16] MEDS: metoprolol succinate ER (24 HR) 25 mg Tablet PO (06:17)
[2020-08-16] MEDS: isosorbide mononitrate ER 30 mg Tablet PO (06:17)
[2020-08-16] MEDS: hydroxychloroquine 200 mg Tablet PO (06:17)
[2020-08-16] MEDS: amiodarone 200 mg Tablet PO (06:17)
[2020-08-16] MEDS: potassium chloride ER 10 mEq Tablet PO ×2 (06:17→11:11)
[2020-08-16] MEDS: ketorolac 30 mg/mL INJ IVP (06:29)
[2020-08-16] MEDS: ipratropium-albuterol 3 mL Neb INHALATION (08:30)
[2020-08-16] MEDS: ranolazine (12HR) 500 mg Tablet PO (09:39)
--- NOTE | 2020-08-16 11:02 | PM.DCS ---
Discharge Providers Date of Admission: 08/14/20 11:30 Date of Discharge: August 16, 2020 Attending Provider at Admission: Vipul Nunez MD Attending Provider at Discharge: Adiel Allison MD Primary Care Provider: JUSTIN Mccollum Diagnoses at Discharge Discharge Diagnosis (1) Multiple rib fractures: Status: Acute (2) Hx of mitral valve repair: Status: Chronic (3) COPD (chronic obstructive pulmonary disease): Status: Chronic (4) Hypertension: Status: Chronic Qualifiers: Hypertension type: essential hypertension Qualified Code(s): I10 - Essential (primary) hypertension (5) CHF (congestive heart failure): Status: Chronic Qualifiers: Heart failure chronicity: acute on chronic Heart failure type: diastolic Qualified Code(s): I50.33 - Acute on chronic diastolic (congestive) heart failure (6) Emphysema lung: Status: Chronic Reason for Visit Reason for Visit: fall Hospital Course Hospital Course 65 year old female admitted for chest trauma due to a fall at home. Patient with a history of medical problems including mitral valve repair on anticoagulation, chronic diastolic heart failure, COPD,was brought in the ER after experiencing likely nasty mechanical fall at home. Upon arrival in the ER .She was worked up for mechanical fall. Imaging studies C.T head without contrast : Negative for acute intracranial injury. CT cervical spin wo con: Negative for acute cervical spine abnormality. CT chest abd pel w con: Multiple acute left-sided rib fractures. Mild intercostal soft tissue hematoma. No acute intrathoracic injury. No active bleeding. Negative for acute abdominopelvic injury. She was admitted for the management for multiple rib fracture ( Left seventh, eighth, and ninth traumatic rib fractures) and for monitoring of the hematoma.Warfarin was kept on hold and at the time of discharge there was no oblivious concern for worsening hematoma.Pain due to rib fracture was well controlled on oral as well as I.V narcotic.Serial xray chest were done during her hospital stay for monitoring of the rib fracture as well as hematoma. There was no concern for severe pulmonary contusion for was encouraged to do incentsive spirometry. She was discharged in stable condition to home. She will follow her PCP in 2 weeks for further evaluation. Physical Exam Const: COMMON NORMALS: patient oriented x3 HENMT: COMMON NORMALS: normocephalic and atraumatic HEAD & SCALP: normocephalic and atraumatic Chest: OTHER: No significant redness,swelling.No crepitation.Chest wall tenderness present Resp: COMMON NORMALS: clear to auscultation bilaterally EFFORT & INSPECTION: Yes symmetric chest movement AUSCULTATION: clear to auscultation bilaterally Cardio: COMMON NORMALS: regular rate, regular rhythm, S1 normal heart sound present, S2 normal heart sound present, No gallops present (Cardio), No murmurs present (Cardio), No rub (Cardio) and Peripheral pulses 2+ throughout RATE: regular rate RHYTHM: regular rhythm HEART SOUNDS: S1 normal heart sound present and S2 normal heart sound present PERIPHERAL PULSES: Peripheral pulses 2+ throughout GI: COMMON NORMALS: Normal to inspection, nondistended, normoactive bowel sounds present, Soft to palpation, non-tender, No hepatosplenomegaly present and no masses AUSCULTATION: Yes normoactive bowel sounds PALPATION: Yes Soft to palpation and Yes No hepatosplenomegaly present RECTAL EXAM: deferred Extremity: COMMON NORMALS: no clubbing, cyanosis or edema and no pedal edema Neuro: COMMON NORMALS: patient oriented x3 Discharge Data Data Completed and Pending: Completed Studies During Hospitalization Category Date Time Status CT cervical spin wo con* [id number] Stat Cat Scan 08/13/20 17:[address] chest abd pel w con* Stat Cat Scan 08/13/20 17:[address] head wo con* [id number] Stat Cat Scan 08/13/20 17:16 Completed XR chest 1V ricki ble [id number] Routine Exams 08/14/20 06:20 Completed XR chest 1V ricki ble [id number] Routine Exams 08/15/20 06:00 Completed XR chest 1V ricki ble [id number] Stat Exams 08/13/20 17:30 Completed Labs from last 24 hours 08/16/20 04:50 PT 17.00 H INR 1.34 H Vitals: Last Vital Signs Temp 98.6 F 08/16/20 11:00 Pulse 77 08/16/20 11:00 Resp 17 08/16/20 11:00 BP 100/69 08/16/20 11:00 Pulse Ox 93 08/16/20 11:00 Discharge Plan Discharge Patient Disposition: Home Condition: Stable Prescriptions: New Percocet 5-325 mg tablet 1 tab PO Q8H PRN (Reason: pain) Qty: 14 RF: 0 levofloxacin 500 mg tablet 500 mg PO DAILY 5 Days RF: 0 Continued albuterol sulfate 2.5 mg /3 mL (0.083 %) solution for nebulization 2.5 mg INHALATION Q4H PRN (Reason: Shortness Of Breath) RF: 0 ascorbate calcium (vitamin C) 500 mg tablet 1 gm PO DAILY PRN (Reason: unknown) RF: 0 nitroglycerin 0.4 mg tablet, sublingual 0.4 mg SUBLINGUAL Q5M PRN (Reason: chest pain) Qty: 30 RF: 0 tramadol 50 mg tablet 50 mg PO TID PRN (Reason: pain) Qty: 30 RF: 0 prednisone 1 mg tablet See Rx Instructions PO DAILY Qty: 200 RF: 1 prednisone 5 mg tablet See Rx Instructions PO DAILY Qty: 90 RF: 1 ranolazine 500 mg tablet extended release 12 hr 500 mg PO Q12H Qty: 180 RF: 1 Spiriva Respimat 2.5 mcg/actuation mist See Rx Instructions .ROUTE .COMPLEX Qty: 4 RF: 5 isosorbide mononitrate 30 mg tablet extended release 24 hr 30 mg PO DAILY@07 Qty: 90 RF: 0 acetaminophen [Tylenol Extra Strength] 500 mg Tablet 1,000 mg PO PRN RF: 0 calcium carbonate [Calcium 500] 500 mg calcium (1,250 mg) Tablet 500 mg PO DAILY PRN (Reason: unknown) RF: 0 potassium chloride 10 mEq Tablet Extended Release 10 meq PO TID@07,12,19 RF: 0 zolpidem 10 mg tablet 10 mg PO BEDTIME PRN (Reason: Sleep) RF: 0 melatonin 10 mg Tablet 10 mg PO BEDTIME PRN (Reason: Sleep) RF: 0 Dayvigo 5 mg tablet 5 mg PO BEDTIME@2200 RF: 0 hydroxychloroquine 200 mg tablet 200 mg PO BID@0700,1900 RF: 0 warfarin 3 mg Tablet 3 mg PO DAILY@19 RF: 0 albuterol sulfate [ProAir HFA] 90 mcg/actuation Hfa Aerosol Inhaler 2 puff INHALATION Q4H PRN (Reason: Shortness Of Breath) RF: 0 furosemide 40 mg tablet 40 - 60 mg PO DAILY@07 RF: 0 amiodarone [Pacerone] 200 mg tablet 200 mg PO DAILY@07 RF: 0 citalopram 10 mg tablet 10 mg PO DAILY@19 RF: 0 simvastatin 40 mg tablet 40 mg PO DAILY@19 RF: 0 lisinopril 10 mg tablet 10 mg PO DAILY@07 RF: 0 metoprolol succinate 25 mg tablet extended release 24 hr 25 mg PO DAILY@07 RF: 0 Discontinued clindamycin HCl 300 mg capsule 300 mg PO TID@,,19 RF: 0 cephalexin 500 mg Tablet 500 mg PO TID@,,19 RF: 0 No Action (DME) INR See Rx Instructions .Route .MEDSUPPLY Qty: 1 RF: 0 Discharge Orders: Discharge Order (Routine); Ordered 08/16/20 Ordered By: Adiel Allison Referrals: Abimbola Chatterjee FNP [Primary Care Provider] - 1 week (Please call Monday morning to make a follow up appointment with primary care for 1 week. ) Discharge Diet: Regular Discharge Activity: Increase activity as tolerated Patient Instructions: Oxycodone/Acetaminophen (By mouth), Levofloxacin (By mouth), Rib Fracture (GEN), Emphysema (GEN) Discharge Attestations Time Spent in Discharge Care*: greater than 30 min Specific Discharge Activities: educating patient, educating and/or supporting family/caregiver, discussing with pcp/other providers, discussing with dependency case manager/social workers/dc planners, documenting/other paperwork and evaluating patient/reviewing data Status at Discharge: Cognitive status at discharge: cognitively intact, Behavioral status at discharge: cooperative, Functional status at discharge: independent ambulation Overall status at discharge: patient is back to baseline Quality Metrics Clinical Quality Measures During this hospital stay, did patient experience: None Coding Level of Care Code Acute Chronic Specialist for [facility] Fwd Diagnoses Multiple rib fractures S22.49XA Hx of mitral valve repair Z98.890 COPD (chronic obstructive pulmonary disease) J44.9 Hypertension I10 Hypertension type: essential hypertension CHF (congestive heart failure) I50.33 Heart failure chronicity: acute on chronic Heart failure type: diastolic Emphysema lung J43.9
--- NOTE | 2020-08-16 11:09 | P.PN_ITS ---
Subjective Subjective: Interval history: Ms. Mcghee looks quite good this morning. She is eager for discharge to home. No breathing difficulties. Her left-sided chest discomfort is substantially improved. Vitals/I&O/Wt Last Vital Signs Temp 98.6 F 08/16/20 11:00 Pulse 77 08/16/20 11:00 Resp 17 08/16/20 11:00 BP 100/69 08/16/20 11:00 Pulse Ox 93 08/16/20 11:00 08/15/20 08/16/20 08/16/20 22:59 06:59 14:59 Intake Total 240 / 840 410 / 1250 140 / 140 Balance 240 / 190 410 / 600 140 / 140 Physical Exam Chest: COMMONS NORMALS: normal inspection of the chest (No substantial ecchymosis. No crepitance. Chest wall is stable.) Resp: COMMON NORMALS: normal respiratory effort, No retractions and No use of accessory muscles OTHER: She has some slight decreased in the left base laterally, though improved from my prior exam. Cardio: COMMON NORMALS: regular rate and S1 normal heart sound present RATE: regular rate RHYTHM: abnormal rhythm (Chronic A. fib) HEART SOUNDS: S1 normal heart sound present Data : 08/15/20 05:00 08/15/20 05:00 A&P Assessment and plan (1) Multiple rib fractures: Left seventh, eighth, and ninth traumatic rib fractures. Pulmonary status improving. Impression: From a thoracic surgical standpoint, I feel she is ready for discharge to home to continue pulmonary toilet. She should follow with her primary care physician within the next 2 weeks for reassessment. Status: Acute Attestations Medical Necessity Statement*: Multiple left-sided traumatic rib fractures, improved Time Spent in Patient Care: less than 15 minutes Coding Level of Care Code Acute Production Technologist for [facility] Fwd Diagnoses Multiple rib fractures S22.49XA
--- NOTE | 2020-08-17 16:05 | PC.RESP ---
Smoking Cessation and Pulmonary Rehab information sent to patient.
== END 2020-08-16 12:15 | disposition home or self-care (01) | DRG 542 ==
LOC: ER 18:36 → MEDSURG 20:29
PROVIDERS: Family Medicine; Internal Medicine; Admitting Provider Thoracic Surgery (Cardiothoracic Vascular Surgery); Emergency Provider Emergency Medicine; PCP Nurse Practitioner Family; Visit Provider Internal Medicine
DX: M80.8AXA Other osteoporosis with current pathological fracture, other site, initial encounter for fracture (principal); I50.33 Acute on chronic diastolic (congestive) heart failure; W10.8XXA Fall (on) (from) other stairs and steps, initial encounter; S20.212A Contusion of left front wall of thorax, initial encounter; I11.0 Hypertensive heart disease with heart failure; J43.9 Emphysema, unspecified; F10.129 Alcohol abuse with intoxication, unspecified; Y90.5 Blood alcohol level of 100-119 mg/100 ml; I25.10 Atherosclerotic heart disease of native coronary artery without angina pectoris; I48.91 Unspecified atrial fibrillation; F32.9 Major depressive disorder, single episode, unspecified; E78.5 Hyperlipidemia, unspecified; I73.9 Peripheral vascular disease, unspecified; F17.210 Nicotine dependence, cigarettes, uncomplicated; Z79.01 Long term (current) use of anticoagulants; Z79.52 Long term (current) use of systemic steroids; M19.90 Unspecified osteoarthritis, unspecified site; Z79.51 Long term (current) use of inhaled steroids; Z79.891 Long term (current) use of opiate analgesic
CPT/HCPCS: 12345; 36415; 70450; 71045; 71260; 72125; 74177; 80048; 80053; 80307; 81001; 83690; 84484; 85025; 85610; 93005; 94640; 99283; G0378; J0696; J1170; J1885; J2270; J2405; J7030; Q9967

== ENCOUNTER → 2020-08-21 13:59 | Outpatient (BNVA) | payer MEDICARE, SELFPAY | PROVIDERS: PCP Nurse Practitioner Family; Visit Provider Nurse Practitioner Family | DX: S22.49XA Multiple fractures of ribs, unspecified side, initial encounter for closed fracture (principal); S60.812A Abrasion of left wrist, initial encounter; W10.9XXA Fall (on) (from) unspecified stairs and steps, initial encounter; Z68.25 Body mass index [BMI] 25.0-25.9, adult; Z95.2 Presence of prosthetic heart valve; J90 Pleural effusion, not elsewhere classified | CPT/HCPCS: 71046 ==

== ENCOUNTER 2020-08-27 11:58 | Emergency (ER) | payer MEDICARE, SELFPAY ==
[2020-08-27 12:00] VITALS: BP 95/67; PULSE 100; RESP 18; TEMP 37.6; O2SAT 91; BMI 24.5
--- NOTE | 2020-08-27 12:01 | ECG_ITS ---
[facility] Test Date: 2020-08-27 Pat Name: Clementina Mcghee Department: Room: Gender: Female [employer]: : 1955 Requested By: Roz Randle Order Number: [id number] Andrea MD: LINDA CAI Measurements Intervals [place] Rate: 105 P: IA: QRS: -4 QRSD: 183 T: 160 QT: 335 QTc: 444 Interpretive Statements ATRIAL FIBRILLATION WITH RAPID VENTRICULAR RESPONSE LEFT BUNDLE BRANCH BLOCK [120+ ms QRS DURATION, 80+ ms Q/S IN V1/V2, 85+ ms R IN I/aVL/V5/V6] Compared to ECG 08/13/2020 23:53:03 Sinus rhythm no longer present Electronically Signed On 08-27-2020 18:17:26 RELATIONSHIP ASSOCIATE by LINDA CAI [id number]
--- NOTE | 2020-08-27 12:02 | XR_ITS ---
WS: [id number] PORTABLE CHEST HISTORY: weak, nausea COMPARISON: 08/21/2020 Lungs are hyperinflated. Diffuse interstitial thickening throughout the LEFT lung. There is significa nt haziness and opacification over the LEFT lung and a small LEFT pleural effusion. No pneumothorax. Cardiac size: Mildly enlarged cardiac silhouette. Mediastinum/Aorta: Increasing consolidation at the LEFT hilum. No osseous abnormality seen. Prior cardiac valve replacement. Short arterial stent in the expected location of the LEFT subclavian artery. XR/XR chest 1V portable [id number] IMPRESSION: 1. Diffuse interstitial thickening is new throughout the LEFT lung along with a small LEFT pleural effusion. This may all be due to edema. Postobstructive at electasis and edema also possibility. 2. Chronic emphysema.
[2020-08-27 12:12] VITALS: BP 59/44; PULSE 100; RESP 22; O2SAT 96; O2SAT 97
[2020-08-27 12:16] VITALS: BP 66/44; PULSE 94; RESP 16; O2SAT 100
[2020-08-27] MEDS: sodium chloride 0.9% 1,000 ML 999 ML IV (12:23)
[2020-08-27] MEDS: ondansetron 2 mg/ML SDV 2 mL 4 MG IVP (12:24)
[2020-08-27 12:31] LABS: Basophils # 0.1 10^3/uL (0.0-0.1); Basophils % 0.4 %; Eosinophils # 0.2 10^3/uL (0.0-0.8); Eosinophils % 1.2 %; Hematocrit 37.7 % (37.0-47.0); Lymphocytes # 0.9 10^3/uL (0.8-4.8); Lymphocytes % 5.9 %; Mean Corpuscular HGB Conc 31.8 g/dL (30.0-36.0); Mean Corpuscular Hemoglobin 32.6 pg (28.0-34.0); Mean Corpuscular Volume 102.4 fL (81-99); Mean Platelet Volume 10.2 fL (7.4-10.4); Monocytes # 0.9 10^3/uL (0.2-0.9); Monocytes % 5.4 %; Neutrophils # 13.51 10^3/uL (1.8-7.7); Neutrophils % 86.5 %; Nucleated Red Blood Cells % 0 %; Platelet Count 368 10^3/cmm (130-400); Red Blood Count 3.68 10^6/uL (4.1-5.3); Red Cell Distribution Width 14.8 % (12.1-15.1); White Blood Count 15.6 10^3/uL (4.0-10.0)
--- NOTE | 2020-08-27 12:32 | CT_ITS ---
WS: [id number] CT CHEST, ABDOMEN AND PELVIS WITH CONTRAST HISTORY: fall last week, hypotensive, abnormal CXR TECHNIQUE: Contiguous 5 mm axial imaging performed through the chest, abdomen and pelvis with IV cont rast, oral contrast has not been provided. Coronal and sagittal reformats chest. Coronal and sagittal reformats through the abdomen and pelvis. All CT scans at [facility] use at least one of these dose optimization techniques: automated exposure control; mA and/or kV adjustment per patient size (includes targeted exams where dose is matched to clinical indication); or iterative reconstruct ion. CONTRAST: Omnipaque 300; 95 mL IV. DLP: 1073.78 mGy.cm COMPARISON: 08/13/[address]: Increase in fluid in the LEFT thorax is probably a hemothorax. There is a defect within the LEFT diaphragm with fat extruding through the defect into the lower LEFT thorax. Mixed density withi n the LEFT pleural fluid. No pneumothorax. Dense consolidation in the adjacent lung. Superimposed chr onic emphysema. Atherosclerosis aorta. Mild enlargement of the LEFT heart chambers. No pericardial effusion. Several acute rib fractures beginning at 6 rib laterally. Sixth, seventh, eighth and ninth rib fractures. The ninth rib fracture by 6 mm. There is significant soft tissue hematoma in the lateral LEFT chest wall. There is anterior costal hematoma. No active bleeding is identified. Abdomen CT: No liver abnormality. Suspect there is a very small contusion type injury to the very sup erior posterior aspect. There is a very small amount of adjacent blood. Pancreas, kidneys and adrenal glands are negative for acute injury. Atherosclerosis aorta. Well-distended gallbladder without poly p along the nondependent wall. Atherosclerosis aorta. No gastrointestinal tract injury. Pelvic CT: No free fluid or blood in the pelvis. Negative urinary bladder. LEFT adnexal cyst measures 3.0 cm and stable. No spine fracture. CT/CT chest abd pel w con* IMPRESSION: 1. Moderate hemothorax in the LEFT lower thorax abutting the diaphragm. 2. 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 This is new since 08/13/2020. 3. Numerous left-sided rib fractures, 6, seventh, eighth and ninth ribs with d isplacement. There is significant intercostal bleeding and hematoma. No active bleeding. 4. No pneumothorax. 5. Focal area of dense consolidation in the LEFT lower lobe is most typical fo r contusion with laceration. 6. Very small amount of blood along the posterior superior spleen. Suspect genia y superficial splenic injury.
--- NOTE | 2020-08-27 12:36 | W.ED.WEAKNES ---
HPI - Weakness General: Chief complaint: Weakness Stated complaint: WEAKNESS/ NAUSEA Time Seen by Provider: 08/27/20 12:01 History of Present Illness: HPI Narrative: This patient is a 65 year old female presenting with weakness and nausea. She says that she hasn't felt well for a few days, and this morning felt so bad that she thought she was going to . She does have some left sided chest pain which she attributes to rib fractures from a fall last week. She was admitted here from 08/14 to 08/16 and diagnosed with left lower rib fractures. She has had continued pain at home with these fractures. She also reports a history of a bad heart . She is on Coumadin and had her INR checked today - reports it was 2.8 She also has RA and has been started on hydroxychloroquine recently. She is in distress and doing the best she can with the history. MD Complaint: generalized weakness, lack of energy and difficulty walking Onset (ago): day(s) (3) Duration: progressively worsening Location: generalized Severity: severe Relieving factors: none Exacerbating factors: movement, exertion and other (standing) Context: new medication and trauma/injury Associated symptoms: Reports chest pain, easy bruising, fever(s) (subjective), headache(s), nausea and short of breath; Denies vomiting Review of Systems Const: Reports: fever(s) (subjective) Card: Reports: chest pain GI: Reports: nausea; Denies: vomiting Skin/Breast: Denies: sores or non-healing lesions Neuro: Reports: headache(s) Psych: Reports: sleeping less Duong/Lymph: Reports: easy bruising PFSH ED PFSH: Medical History Anticoagulated on warfarin ASHD (arteriosclerotic heart disease) Atrial flutter CHF (congestive heart failure) COPD (chronic obstructive pulmonary disease) Depression Emphysema lung Fall Hyperlipidemia Hypertension Multiple rib fractures Osteoporosis PVD (peripheral vascular disease) Surgical History Hx of coronary angioplasty Hx of hysterectomy Hx of mitral valve repair Hx of sinus surgery Hx of tonsillectomy Family History Family/Other Diabetes Cancer Heart disease Katja-Danlos syndrome type VIII Social History Smoking and tobacco status: current some day smoker cigarettes Packs smoked per day: 0.5 Years cigarettes smoked: 40 Second hand smoke exposure: No Alcohol intake: never Lives independently: Yes Marital status: Current occupational status: retired History of recent travel: No Current gender identity: Female Physical Exam Const: COMMON NORMALS: patient oriented x3 and alert GENERAL APPEARANCE: cooperative, in distress and anxious ORIENTATION/CONSCIOUSNESS: Yes awake, Yes oriented to person, Yes oriented to place and Yes oriented to time HENMT: HEAD & SCALP: normal to inspection FACE & SINUS: normal facial exam Eye: GENERAL EYE: appearance normal, both eyes and all related structures Neck/C-Spine: COMMON NORMALS: supple, no meningeal signs and no JVD Chest: CHEST: Yes localized rib tenderness with anteroposterior compression, Yes tenderness, Yes Ecchymosis present and Yes other (left sided) Breast/axilla inspection: No no chest deformity, asymmetry, normal contours, no nodules, masses, tenderness Resp: EFFORT & INSPECTION: Yes able to speak in complete sentences and Yes tachypneic AUSCULTATION: diminished lung sounds on the left Cardio: COMMON NORMALS: no JVD, regular rhythm and No murmurs present (Cardio) RATE: tachycardic RHYTHM: regular rhythm PERIPHERAL PULSES: radial pulses present (diminished) GI: COMMON NORMALS: Normal to inspection, nondistended, normoactive bowel sounds present and non-tender INSPECTION: Yes normal to inspection AUSCULTATION: Yes normoactive bowel sounds PALPATION: Yes Tenderness to palpation present (GI) Details: LUQ Back/Pelvis: COMMON NORMALS: thoracic and lumbar spine normal to inspection Extremity: COMMON NORMALS: normal to inspection Neuro: COMMON NORMALS: patient oriented x3, moves all extremities, no focal motor deficits and no sensory deficits noted SENSORIUM/ORIENTATION: Yes alert, Yes oriented to person, Yes oriented to place and Yes oriented to time MENINGEAL SIGNS: Yes no meningeal signs Psych: COMMON NORMALS: mental status grossly normal, cooperative and normal affect Skin: COMMON NORMALS: no rashes or lesions noted and turgor normal GENERAL SKIN EXAM: no rashes or lesions noted and turgor normal Course ED course: Patient presents with severe left sided pain, malaise, nausea, lightheadedness. BP low - systolic 50/30 on my initial exam. She is satting well, however. Fall last week. Today, CXR and CT show left sided hemothorax, displaced rib fractures, diaphragmatic rupture, small amount of blood on the spleen. Discussed with [facility] and she is accepted. Requested that she get Kcentra prior to transfer. [facility] available and on the way. BP after 1 liter of fluid is 120/90. Pain meds given. Hgb stable. INR 2.8. Son Rubén Darby - [phone] aware of the transfer and diagnoses. Also given antibiotics for possible pneumonia in the effected lung. She was not given Kcentra because she actually had an INR of 1.9. The 2.8 was from a home test that she did. I had thought that I had seen it documented in our laboratory results but I was in error and when the actual INR came back it was only 1.9. Vital Signs: Vital signs: Vital Signs Temperature 99.7 F H 08/27/20 12:00 Pulse Rate 90 08/27/20 15:07 Respiratory Rate 12 08/27/20 15:07 Blood Pressure 102/76 08/27/20 15:07 Pulse Oximetry 96 08/27/20 15:07 MDM - Weakness MDM Narrative: Medical decision making narrative: Pneumonia, PE, aortic dissection, NV, pneumothorax, hemothorax, splenic injury, intra-abdominal injury, sepsis. Lab Data: Labs: Lab Results 08/27/20 08/27/20 08/27/20 Range/Units 12:17 12:17 12:17 WBC 15.6 H (4.0-10.0) 10^3/ uL RBC 3.68 L (4.1-5.3) 10^6/u L Hgb 12.0 (11.5-15.3) g/dL Hct 37.7 (37.0-47.0) % MCV 102.4 H (81-99) fL MCH 32.6 (28.0-34.0) pg MCHC 31.8 (30.0-36.0) g/dL RDW 14.8 (12.1-15.1) % Plt Count 368 (130-400) 10^3/c mm MPV 10.2 (7.4-10.4) fL Neut % (Auto) 86.5 % Lymph % (Auto) 5.9 % [place] % (Auto) 5.4 % Eos % (Auto) 1.2 % Baso % (Auto) 0.4 % Neut # (Auto) 13.51 H (1.8-7.7) 10^3/u L Lymph # (Auto) 0.9 (0.8-4.8) 10^3/u L [place] # (Auto) 0.9 (0.2-0.9) 10^3/u L Eos # (Auto) 0.2 (0.0-0.8) 10^3/u L Baso # (Auto) 0.1 (0.0-0.1) 10^3/u L Nucleated RBC % (a uto) 0 % Nucleated RBCs # 0.0 /100WBC PT (12.1-14.9) SECO NDS INR (0.8-1.2) Sodium 138 (136-145) mmol/L Potassium 4.2 (3.5-5.1) mmol/L Chloride 98 (98-107) mmol/L Carbon Dioxide 26 (22-29) mmol/L Anion Gap 18.2 (5-19) BUN 21 (8-23) mg/dL Creatinine 1.4 H (0.5-0.9) mg/dL GFR Calculation 37.5 L (90-130) mL/min Glucose 127 H (65-115) mg/dL Calculated Osmolal ity 291 (285-295) mOsm/k g Lactic Acid (0.5-2.2) mmol/L Calcium 10.0 (8.5-10.5) mg/dL Total Bilirubin 0.8 (0.15-1.2) mg/dL AST 19 (0-32) U/L ALT 14 (0-33) U/L Alkaline Phosphata se 135 H (35-105) IU/L Troponin T Baselin e 36 H (0-10) ng/L Troponin T 120 Min [place] (0-10) ng/L Delta Troponin T (0-10) ABS# Total Protein 7.7 (6.6-8.7) g/dL Albumin 4.2 (3.5-5.2) g/dL Globulin 3.5 (1.3-4.6) g/dL Lipase 33 (13-60) U/L Procalcitonin 0.05 (0-0.5) ng/mL Urine Color (Yellow) Urine Appearance (CLEAR) Urine pH (5-7) Ur Specific Gravit y (1.005-1.030) Urine Protein (Negative) Urine Glucose (UA) (Normal) Urine Ketones (Negative) Urine Blood (Negative) Urine Nitrate (Negative) Urine Bilirubin (Negative) Urine Urobilinogen (Negative) mg/dL Ur Leukocyte Arin ase (Negative) 08/27/20 08/27/20 08/27/20 Range/Units 12:17 12:17 14:48 WBC (4.0-10.0) 10^3/ uL RBC (4.1-5.3) 10^6/u L Hgb (11.5-15.3) g/dL Hct (37.0-47.0) % MCV (81-99) fL MCH (28.0-34.0) pg MCHC (30.0-36.0) g/dL RDW (12.1-15.1) % Plt Count (130-400) 10^3/c mm MPV (7.4-10.4) fL Neut % (Auto) % Lymph % (Auto) % [place] % (Auto) % Eos % (Auto) % Baso % (Auto) % Neut # (Auto) (1.8-7.7) 10^3/u L Lymph # (Auto) (0.8-4.8) 10^3/u L [place] # (Auto) (0.2-0.9) 10^3/u L Eos # (Auto) (0.0-0.8) 10^3/u L Baso # (Auto) (0.0-0.1) 10^3/u L Nucleated RBC % (a uto) % Nucleated RBCs # /100WBC PT 22.80 H (12.1-14.9) SECO NDS INR 1.94 H (0.8-1.2) Sodium (136-145) mmol/L Potassium (3.5-5.1) mmol/L Chloride (98-107) mmol/L Carbon Dioxide (22-29) mmol/L Anion Gap (5-19) BUN (8-23) mg/dL Creatinine (0.5-0.9) mg/dL GFR Calculation (90-130) mL/min Glucose (65-115) mg/dL Calculated Osmolal ity (285-295) mOsm/k g Lactic Acid 2.2 (0.5-2.2) mmol/L Calcium (8.5-10.5) mg/dL Total Bilirubin (0.15-1.2) mg/dL AST (0-32) U/L ALT (0-33) U/L Alkaline Phosphata se (35-105) IU/L Troponin T Baselin e (0-10) ng/L Troponin T 120 Min [place] 24.89 H (0-10) ng/L Delta Troponin T -11.11 L (0-10) ABS# Total Protein (6.6-8.7) g/dL Albumin (3.5-5.2) g/dL Globulin (1.3-4.6) g/dL Lipase (13-60) U/L Procalcitonin (0-0.5) ng/mL Urine Color (Yellow) Urine Appearance (CLEAR) Urine pH (5-7) Ur Specific Gravit y (1.005-1.030) Urine Protein (Negative) Urine Glucose (UA) (Normal) Urine Ketones (Negative) Urine Blood (Negative) Urine Nitrate (Negative) Urine Bilirubin (Negative) Urine Urobilinogen (Negative) mg/dL Ur Leukocyte Arin ase (Negative) 08/27/20 Range/Units 15:15 WBC (4.0-10.0) 10^3/ uL RBC (4.1-5.3) 10^6/u L Hgb (11.5-15.3) g/dL Hct (37.0-47.0) % MCV (81-99) fL MCH (28.0-34.0) pg MCHC (30.0-36.0) g/dL RDW (12.1-15.1) % Plt Count (130-400) 10^3/c mm MPV (7.4-10.4) fL Neut % (Auto) % Lymph % (Auto) % [place] % (Auto) % Eos % (Auto) % Baso % (Auto) % Neut # (Auto) (1.8-7.7) 10^3/u L Lymph # (Auto) (0.8-4.8) 10^3/u L [place] # (Auto) (0.2-0.9) 10^3/u L Eos # (Auto) (0.0-0.8) 10^3/u L Baso # (Auto) (0.0-0.1) 10^3/u L Nucleated RBC % (a uto) % Nucleated RBCs # /100WBC PT (12.1-14.9) SECO NDS INR (0.8-1.2) Sodium (136-145) mmol/L Potassium (3.5-5.1) mmol/L Chloride (98-107) mmol/L Carbon Dioxide (22-29) mmol/L Anion Gap (5-19) BUN (8-23) mg/dL Creatinine (0.5-0.9) mg/dL GFR Calculation (90-130) mL/min Glucose (65-115) mg/dL Calculated Osmolal ity (285-295) mOsm/k g Lactic Acid (0.5-2.2) mmol/L Calcium (8.5-10.5) mg/dL Total Bilirubin (0.15-1.2) mg/dL AST (0-32) U/L ALT (0-33) U/L Alkaline Phosphata se (35-105) IU/L Troponin T Baselin e (0-10) ng/L Troponin T 120 Min [place] (0-10) ng/L Delta Troponin T (0-10) ABS# Total Protein (6.6-8.7) g/dL Albumin (3.5-5.2) g/dL Globulin (1.3-4.6) g/dL Lipase (13-60) U/L Procalcitonin (0-0.5) ng/mL Urine Color Straw (Yellow) Urine Appearance Clear (CLEAR) Urine pH 5.0 (5-7) Ur Specific Gravit y 1.010 (1.005-1.030) Urine Protein Neg (Negative) Urine Glucose (UA) Norm (Normal) Urine Ketones Negative (Negative) Urine Blood Neg (Negative) Urine Nitrate Negative (Negative) Urine Bilirubin Neg (Negative) Urine Urobilinogen Norm (Negative) mg/dL Ur Leukocyte Arin ase Negative (Negative) Critical Care Time Critical Care Time: Critical Care Time: Yes Total Critical Care Time: 35 Attestation: I provided critical care time of 35 minutes to this patient exclusive of other activities. This was including reassessments on multiple occasions. Treatment of hypotension. Discussion of CT findings with the radiologist. Discussion with accepting physician at transfer facility. Discussion with the patient herself as well as her son by phone. Review of prior admission and imaging. Discharge Plan Discharge Patient Disposition: Xfer Other Referrals: Abimbola Chatterjee FNP [Primary Care Provider] - Coding Level of Care Code ED Hair Assistant for Chg Fwd Exam Comprehensive
[2020-08-27] MEDS: iohexol 300 mg/mL 100 mL Btl IV (12:59)
[2020-08-27 13:04] LABS: Lactic Sepsis W/Reflex 2.2 mmol/L (0.5-2.2); Troponin(5th) Baseline 36 ng/L (0-10)
[2020-08-27 13:10] LABS: Procalcitonin 0.05 ng/mL (0-0.5)
[2020-08-27 13:21] LABS: Alanine Aminotransferase 14 U/L (0-33); Albumin Level 4.2 g/dL (3.5-5.2); Alkaline Phosphatase 135 IU/L (35-105); Anion Gap 18.2 (5-19); Aspartate Amino Transferase 19 U/L (0-32); Blood Urea Nitrogen 21 mg/dL (8-23); Carbon Dioxide 26 mmol/L (22-29); Chloride 98 mmol/L (98-107); Globulin 3.5 g/dL (1.3-4.6); Glomerular Filtration Rate 37.5 mL/min (90-130); Glucose 127 mg/dL (65-115); Lipase 33 U/L (13-60); Osmolality Calculated 291 mOsm/kg (285-295); Potassium 4.2 mmol/L (3.5-5.1); Sodium 138 mmol/L (136-145); Total Bilirubin 0.8 mg/dL (0.15-1.2); Total Protein 7.7 g/dL (6.6-8.7)
[2020-08-27] MEDS: cefTRIAXone 1,000 MG in sodium chloride 0.9% (plus) 50 ML 100 MG IV (13:57)
--- NOTE | 2020-08-27 14:01 | ECG_ITS ---
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1955 Requested By: Roz Randle Order Number: [id number] Reading MD: LINDA CAI Measurements Intervals [place] Rate: 94 P: [place]: QRS: -6 QRSD: 193 T: 137 QT: 450 QTc: 564 Interpretive Statements ATRIAL FIBRILLATION LEFT BUNDLE BRANCH BLOCK [120+ ms QRS DURATION, 80+ ms Q/S IN V1/V2, 85+ ms R IN I/aVL/V5/V6] Compared to ECG 08/27/2020 12:08:47 No significant changes Electronically Signed On 08-27-2020 18:19:15 DINING ROOM BUSSER by LINDA CAI [email or web address]
[2020-08-27 14:05] VITALS: RESP 18
[2020-08-27] MEDS: fentaNYL 50 mcg/mL INJ 2mL IVP (14:05)
[2020-08-27] MEDS: azithromycin 500 MG in sodium chloride 0.9% 250 ML 250 MG IV (14:07)
[2020-08-27 14:16] LABS: Reflex Lactate Order REFLEX LACTIC ORDERD
[2020-08-27 14:22] VITALS: BP 120/90; PULSE 97; RESP 18; O2SAT 100
[2020-08-27 14:55] LABS: INR 1.94 (0.8-1.2)
[2020-08-27 15:07] VITALS: BP 102/76; PULSE 90; RESP 12; O2SAT 96
[2020-08-27 15:12] LABS: Troponin 5 2HR 24.89 ng/L (0-10)
[2020-08-27] MEDS: LORazepam 2 mg/mL INJ 1 mL 1 MG IVP (15:12)
[2020-08-27 15:14] LABS: Troponin 5 2HR Delta -11.11 ABS# (0-10)
[2020-08-27 15:22] LABS: Add Urine Microscopic? NO
[2020-08-27 15:32] LABS: Bilirubin Urine Neg (Negative); Blood Urine Neg (Negative); Glucose Urine UA Norm (Normal); Ketones Urine Negative (Negative); Leukocyte Esterase Urine Negative (Negative); Nitrate Urine Negative (Negative); Protein Urine Neg (Negative); Urine Appearance Clear (CLEAR); Urine Color Straw (Yellow); Urobilinogen Urine Norm (Negative)
== END 2020-08-27 15:23 | disposition other institution (70) ==
PROVIDERS: Emergency Provider Emergency Medicine; PCP Nurse Practitioner Family
DX: R53.1 Weakness (principal); I11.0 Hypertensive heart disease with heart failure; I50.9 Heart failure, unspecified; J43.9 Emphysema, unspecified; E78.5 Hyperlipidemia, unspecified; Z98.61 Coronary angioplasty status; F17.210 Nicotine dependence, cigarettes, uncomplicated
CPT/HCPCS: 36415; 71045; 71260; 74177; 80053; 81003; 83605; 83690; 84145; 84484; 85025; 85610; 87040; 93005; 96365; 96367; 96375; 99291; J0456; J0696; J2060; J2405; J3010; J7030; J7050; Q9967

== ENCOUNTER 2020-09-08 10:06 | Inpatient (IN) | payer MEDICARE, SELFPAY ==
[2020-09-08] VITALS (48 sets, daily range): BP systolic 110–161; BP diastolic 71–119; PULSE 84–120; RESP 14–35; TEMP 36.6; O2SAT 79–100; BMI 25.7
--- NOTE | 2020-09-08 10:31 | XR_ITS ---
WS: [id number] PORTABLE CHEST HISTORY: dyspnea/cough COMPARISON: 08/27/2020. Valve replacement. Diffuse bilateral opacifications, slightly greater throughout the RIGHT lung. Pulmonary arteries are also enlarged. Small LEFT pleural effusion. Cardiac size: Normal. Mediastinum/Aorta: Mild atherosclerosis aorta. Short stent in the LEFT subclavian artery location. Osteopenia. Multiple rib fractures have been recently described in the lower LEFT thorax. XR/XR chest 1V portable [id number] IMPRESSION: Interval development of CHF. Underlying pneumonia not excluded. Small LEFT pleural effusion associated with the previously described rib fractu res.
--- NOTE | 2020-09-08 10:33 | W.ED.GENADLT ---
HPI - General Adult General: Chief complaint: ER Hold Stated complaint: Abd pain Time Seen by Provider: 09/08/20 10:21 History of Present Illness: HPI narrative: 65-year-old female who presents to the emergency room with her son. 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 Through the remainder the night she continued to deteriorate was having difficulty breathing and increasing altered mental status. No fever. Onset (ago): hour(s) Severity: moderate Relieving factors: none Exacerbating factors: none Associated symptoms: Reports confusion, cough, decreased appetite, dyspnea, malaise, short of breath and weakness; Deny chest pain, diaphoresis, fevers/chills, headache(s), nausea, palpitations, seizures, syncope or vomiting Treatments prior to arrival: none Review of Systems General: Reports: ROS unobtainable due to medical condition and Other (Some basic review of systems obtained from the son.) Const: Reports: malaise; Denies: diaphoresis Card: Denies: chest pain, palpitations or syncope Resp: Reports: dyspnea GI: Denies: nausea or vomiting Neuro: Reports: confusion; Denies: headache(s) PFSH ED PFSH: Medical History Anticoagulated on warfarin ASHD (arteriosclerotic heart disease) Atrial flutter CHF (congestive heart failure) COPD (chronic obstructive pulmonary disease) Depression Emphysema lung Fall Hyperlipidemia Hypertension Multiple rib fractures Osteoporosis PVD (peripheral vascular disease) Surgical History Hx of coronary angioplasty Hx of hysterectomy Hx of mitral valve repair Hx of sinus surgery Hx of tonsillectomy Family History Family/Other Diabetes Cancer Heart disease Katja-Danlos syndrome type VIII Social History Smoking and tobacco status: current some day smoker cigarettes Packs smoked per day: 0.5 Years cigarettes smoked: 40 Second hand smoke exposure: No Alcohol intake: never Lives independently: Yes Marital status: Current occupational status: retired History of recent travel: No Current gender identity: Female Physical Exam Const: GENERAL APPEARANCE: cooperative HENMT: COMMON NORMALS: normocephalic and atraumatic HEAD & SCALP: normocephalic and atraumatic Neck/C-Spine: COMMON NORMALS: no JVD Resp: AUSCULTATION: crackles and diminished lung sounds Cardio: COMMON NORMALS: no JVD, regular rate, regular rhythm and No murmurs present (Cardio) RATE: regular rate RHYTHM: regular rhythm GI: COMMON NORMALS: Soft to palpation and No hepatosplenomegaly present AUSCULTATION: Yes normoactive bowel sounds PALPATION: Yes Soft to palpation, No Tenderness to palpation present (GI), No Guarding due to palpation present (GI) and Yes No hepatosplenomegaly present Extremity: COMMON NORMALS: normal to inspection, capillary refill normal, no clubbing, cyanosis or edema, no calf tenderness and no pedal edema Neuro: SULEMA COMA SCALE: document GCS findings [place]ma coma scale eye opening: To sound [place]ma coma scale verbal response: Words [place] coma scale motor response: Obey commands [place] coma scale total score: 12 Course Vital Signs: Vital signs: Vital Signs Temperature 98.0 F 09/12/20 04:00 Pulse Rate 102 H 09/12/20 06:00 Respiratory Rate 16 09/12/20 04:00 Blood Pressure 117/73 09/12/20 04:00 Pulse Oximetry 95 09/12/20 04:00 MDM - General Adult MDM Narrative: Medical decision making narrative: Patient had recent trauma she had fallen down the stairs. She was transferred from here to [place] underwent splenectomy and repair of a diaphragmatic rupture. She was discharged home yesterday worsened overnight on chest x-ray it appears she has some congestive heart failure and possible underlying pneumonia. No worsening or sudden change or complication of her previous injuries noted on CT. She has been cultured and started on IV antibiotics. Central line was started because IV access peripherally was not able to be maintained. Initially given Levaquin and Zosyn will discuss with hospitalist and admit. Lab Data: Labs: Lab Results 09/08/20 09/08/20 09/08/20 Range/Units 10:31 10:40 10:40 WBC 13.4 H (4.0-10.0) 10^3/ uL RBC 3.45 L (4.1-5.3) 10^6/u L Hgb 10.6 L (11.5-15.3) g/dL Hct 34.0 L (37.0-47.0) % MCV 98.6 (81-99) fL MCH 30.7 (28.0-34.0) pg MCHC 31.2 (30.0-36.0) g/dL RDW 16.2 H (12.1-15.1) % Plt Count 480 H (130-400) 10^3/c mm MPV 9.8 (7.4-10.4) fL Neut % (Auto) 86.5 % Lymph % (Auto) 4.9 % [place] % (Auto) 7.2 % Eos % (Auto) 0.1 % Baso % (Auto) 0.4 % Neut # (Auto) 11.58 H (1.8-7.7) 10^3/u L Lymph # (Auto) 0.7 L (0.8-4.8) 10^3/u L [place] # (Auto) 1.0 H (0.2-0.9) 10^3/u L Eos # (Auto) 0.0 (0.0-0.8) 10^3/u L Baso # (Auto) 0.1 (0.0-0.1) 10^3/u L Nucleated RBC % (a uto) 0.2 % Nucleated RBCs # 0.0 /100WBC PT (12.1-14.9) SECO NDS INR (0.8-1.2) Specimen Type Arterial Sample Site Brachial, right ABG pH 7.51 H (7.35-7.45) ABG pCO2 36.9 (35-45) mmHg ABG pO2 58.1 L (80.0-100.0) mmH g ABG HCO3 29.1 H (22-26) mmol/L ABG O2 Saturation 91.6 ABG Base Excess 5.7 H (-2.0-2.0) mmol/ L Davidson Test Pos A-a O2 Gradient 6.2 (5-10) mmHg Hematocrit 33.4 L (37-47) % Hgb O2 Saturation 89.6 L (95-100) % Carboxyhemoglobin 1.3 (0.4-20.1) %THgb Methemoglobin 0.9 (0.4-1.5) % Total Hemoglobin 10.9 L (12-16) g/dL Sodium 139.0 (131-143) mmol/L Potassium 3.7 (3.5-5.0) mmol/L Glucose 106.0 (70-115) mg/dL Ionized Calcium 1.2 (1.1-1.4) mmol/L O2 Delivery Device Room air FiO2 21.0 % Watchstander ID [place] Chloride (98-107) mmol/L Carbon Dioxide (22-29) mmol/L Anion Gap (5-19) BUN (8-23) mg/dL Creatinine (0.5-0.9) mg/dL GFR Calculation (90-130) mL/min Calculated Osmolal ity (285-295) mOsm/k g Lactic Acid (0.5-2.2) mmol/L Calcium (8.5-10.5) mg/dL Magnesium (1.7-2.3) mg/dL Total Bilirubin (0.15-1.2) mg/dL AST (0-32) U/L ALT (0-33) U/L Alkaline Phosphata se (35-105) IU/L NT-Pro-B Natriuret Pep 24974 H (0-125) pg/mL Total Protein (6.6-8.7) g/dL Albumin (3.5-5.2) g/dL Globulin (1.3-4.6) g/dL Lipase (13-60) U/L Urine Color (Yellow) Urine Appearance (CLEAR) Urine pH (5-7) Ur Specific Gravit y (1.005-1.030) Urine Protein (Negative) Urine Glucose (UA) (Normal) Urine Ketones (Negative) Urine Blood (Negative) Urine Nitrate (Negative) Urine Bilirubin (Negative) Prot Sulfosalicyli c Acd Urine Urobilinogen (Negative) mg/dL Ur Leukocyte Arin ase (Negative) Urine RBC (0-2) /hpf Urine WBC (0-5) /hpf Ur Squamous Epith Cells (0-5) /hpf Amorphous Sediment Urine Bacteria (NONE) /hpf Urine Mucus /hpf 09/08/20 09/08/20 09/08/20 Range/Units 11:15 11:15 11:15 WBC (4.0-10.0) 10^3/ uL RBC (4.1-5.3) 10^6/u L Hgb (11.5-15.3) g/dL Hct (37.0-47.0) % MCV (81-99) fL MCH (28.0-34.0) pg MCHC (30.0-36.0) g/dL RDW (12.1-15.1) % Plt Count (130-400) 10^3/c mm MPV (7.4-10.4) fL Neut % (Auto) % Lymph % (Auto) % [place] % (Auto) % Eos % (Auto) % Baso % (Auto) % Neut # (Auto) (1.8-7.7) 10^3/u L Lymph # (Auto) (0.8-4.8) 10^3/u L [place] # (Auto) (0.2-0.9) 10^3/u L Eos # (Auto) (0.0-0.8) 10^3/u L Baso # (Auto) (0.0-0.1) 10^3/u L Nucleated RBC % (a uto) % Nucleated RBCs # /100WBC PT 29.10 H (12.1-14.9) SECO NDS INR 2.63 H (0.8-1.2) Specimen Type Sample Site ABG pH (7.35-7.45) ABG pCO2 (35-45) mmHg ABG pO2 (80.0-100.0) mmH g ABG HCO3 (22-26) mmol/L ABG O2 Saturation ABG Base Excess (-2.0-2.0) mmol/ L Davidson Test A-a O2 Gradient (5-10) mmHg Hematocrit (37-47) % Hgb O2 Saturation (95-100) % Carboxyhemoglobin (0.4-20.1) %THgb Methemoglobin (0.4-1.5) % Total Hemoglobin (12-16) g/dL Sodium 136 (131-143) mmol/L Potassium 3.9 (3.5-5.0) mmol/L Glucose 93 (70-115) mg/dL Ionized Calcium (1.1-1.4) mmol/L O2 Delivery Device FiO2 % Watchstander ID Chloride 97 L (98-107) mmol/L Carbon Dioxide 28 (22-29) mmol/L Anion Gap 14.9 (5-19) BUN 13 (8-23) mg/dL Creatinine 0.5 (0.5-0.9) mg/dL GFR Calculation 123.1 (90-130) mL/min Calculated Osmolal ity 282 L (285-295) mOsm/k g Lactic Acid 1.3 (0.5-2.2) mmol/L Calcium 9.2 (8.5-10.5) mg/dL Magnesium 1.8 (1.7-2.3) mg/dL Total Bilirubin 0.5 (0.15-1.2) mg/dL AST 28 (0-32) U/L ALT 46 H (0-33) U/L Alkaline Phosphata se 140 H (35-105) IU/L NT-Pro-B Natriuret Pep (0-125) pg/mL Total Protein 6.4 L (6.6-8.7) g/dL Albumin 3.2 L (3.5-5.2) g/dL Globulin 3.2 (1.3-4.6) g/dL Lipase 112 H (13-60) U/L Urine Color (Yellow) Urine Appearance (CLEAR) Urine pH (5-7) Ur Specific Gravit y (1.005-1.030) Urine Protein (Negative) Urine Glucose (UA) (Normal) Urine Ketones (Negative) Urine Blood (Negative) Urine Nitrate (Negative) Urine Bilirubin (Negative) Prot Sulfosalicyli c Acd Urine Urobilinogen (Negative) mg/dL Ur Leukocyte Arin ase (Negative) Urine RBC (0-2) /hpf Urine WBC (0-5) /hpf Ur Squamous Epith Cells (0-5) /hpf Amorphous Sediment Urine Bacteria (NONE) /hpf Urine Mucus /hpf 09/08/20 09/08/20 Range/Units 11:50 11:50 WBC (4.0-10.0) 10^3/ uL RBC (4.1-5.3) 10^6/u L Hgb (11.5-15.3) g/dL Hct (37.0-47.0) % MCV (81-99) fL MCH (28.0-34.0) pg MCHC (30.0-36.0) g/dL RDW (12.1-15.1) % Plt Count (130-400) 10^3/c mm MPV (7.4-10.4) fL Neut % (Auto) % Lymph % (Auto) % [place] % (Auto) % Eos % (Auto) % Baso % (Auto) % Neut # (Auto) (1.8-7.7) 10^3/u L Lymph # (Auto) (0.8-4.8) 10^3/u L [place] # (Auto) (0.2-0.9) 10^3/u L Eos # (Auto) (0.0-0.8) 10^3/u L Baso # (Auto) (0.0-0.1) 10^3/u L Nucleated RBC % (a uto) % Nucleated RBCs # /100WBC PT (12.1-14.9) SECO NDS INR (0.8-1.2) Specimen Type Sample Site ABG pH (7.35-7.45) ABG pCO2 (35-45) mmHg ABG pO2 (80.0-100.0) mmH g ABG HCO3 (22-26) mmol/L ABG O2 Saturation ABG Base Excess (-2.0-2.0) mmol/ L Davidson Test A-a O2 Gradient (5-10) mmHg Hematocrit (37-47) % Hgb O2 Saturation (95-100) % Carboxyhemoglobin (0.4-20.1) %THgb Methemoglobin (0.4-1.5) % Total Hemoglobin (12-16) g/dL Sodium (131-143) mmol/L Potassium (3.5-5.0) mmol/L Glucose (70-115) mg/dL Ionized Calcium (1.1-1.4) mmol/L O2 Delivery Device FiO2 % Watchstander ID Chloride (98-107) mmol/L Carbon Dioxide (22-29) mmol/L Anion Gap (5-19) BUN (8-23) mg/dL Creatinine (0.5-0.9) mg/dL GFR Calculation (90-130) mL/min Calculated Osmolal ity (285-295) mOsm/k g Lactic Acid (0.5-2.2) mmol/L Calcium (8.5-10.5) mg/dL Magnesium (1.7-2.3) mg/dL Total Bilirubin (0.15-1.2) mg/dL AST (0-32) U/L ALT (0-33) U/L Alkaline Phosphata se (35-105) IU/L NT-Pro-B Natriuret Pep (0-125) pg/mL Total Protein (6.6-8.7) g/dL Albumin (3.5-5.2) g/dL Globulin (1.3-4.6) g/dL Lipase (13-60) U/L Urine Color Yellow Cancelled (Yellow) Urine Appearance Clear Cancelled (CLEAR) Urine pH 5.0 Cancelled (5-7) Ur Specific Gravit y 1.020 Cancelled (1.005-1.030) Urine Protein 1+ H Cancelled (Negative) Urine Glucose (UA) Norm Cancelled (Normal) Urine Ketones 1+ H Cancelled (Negative) Urine Blood 2+ H Cancelled (Negative) Urine Nitrate Negative Cancelled (Negative) Urine Bilirubin 1+ H Cancelled (Negative) Prot Sulfosalicyli c Acd Cancelled Urine Urobilinogen 1 H Cancelled (Negative) mg/dL Ur Leukocyte Arin ase Negative Cancelled (Negative) Urine RBC 0-4 H (0-2) /hpf Urine WBC None (0-5) /hpf Ur Squamous Epith Cells 0-4 H (0-5) /hpf Amorphous Sediment Not Reportable Urine Bacteria Trace (NONE) /hpf Urine Mucus 2+ /hpf Discharge Plan Discharge Patient Disposition: Admitted As Inpatient Admit Provider: Adiel Allison Clinical Impression: Congestive heart failure, Ribs, multiple fractures, HCAP (healthcare-associated pneumonia) Condition: Stable Coding Level of Care Code ED Business Development Intern for g Fwd Exam Comprehensive
[2020-09-08 10:44] LABS: ABG PCO2 36.9 mmHg (35-45); ABG PH Result 7.51 (7.35-7.45); Alveolar-Arterial Oxygen Gradi 6.2 mmHg (5-10); Arterial Blood Gas Hematocrit 33.4 % (37-47); Base Excess ABG 5.7 mmol/L (-2.0-2.0); Blood Gas Allen Test Pos; Blood Gas Sample Type Arterial; Carboxyhemoglobin 1.3 %THgb (0.4-20.1); HCO3 ABG 29.1 mmol/L (22-26); HGB O2 Sat 89.6 % (95-100); Ionized Calcium Level - ABG 1.2 mmol/L (1.1-1.4); Methemoglobin 0.9 % (0.4-1.5); Oxygen Saturation ABG 91.6; PO2 ABG 58.1 mmHg (80.0-100.0); Potassium Level - ABG 3.7 mmol/L (3.5-5.0); Total Hemoglobin 10.9 g/dL (12-16)
[2020-09-08 10:52] LABS: Basophils # 0.1 10^3/uL (0.0-0.1); Basophils % 0.4 %; Eosinophils % 0.1 %; Hemoglobin 10.6 g/dL (11.5-15.3); Lymphocytes # 0.7 10^3/uL (0.8-4.8); Lymphocytes % 4.9 %; Mean Corpuscular HGB Conc 31.2 g/dL (30.0-36.0); Mean Corpuscular Hemoglobin 30.7 pg (28.0-34.0); Mean Corpuscular Volume 98.6 fL (81-99); Mean Platelet Volume 9.8 fL (7.4-10.4); Monocytes % 7.2 %; Neutrophils # 11.58 10^3/uL (1.8-7.7); Neutrophils % 86.5 %; Nucleated Red Blood Cells % 0.2 %; Platelet Count 480 10^3/cmm (130-400); Red Blood Count 3.45 10^6/uL (4.1-5.3); Red Cell Distribution Width 16.2 % (12.1-15.1); White Blood Count 13.4 10^3/uL (4.0-10.0)
[2020-09-08 10:58] LABS: Blood Gas Operator Identificat MONRO; Blood Gas Sample Site Brachial, right; Oxygen Device ROOM AIR
[2020-09-08] MEDS: ondansetron 2 mg/ML SDV 2 mL 4 MG IVP (11:00)
[2020-09-08 11:02] LABS: INR 2.63 (0.8-1.2)
[2020-09-08 11:06] LABS: Alanine Aminotransferase 46 U/L (0-33); Albumin Level 3.2 g/dL (3.5-5.2); Alkaline Phosphatase 140 IU/L (35-105); Anion Gap 14.9 (5-19); Aspartate Amino Transferase 28 U/L (0-32); Blood Urea Nitrogen 13 mg/dL (8-23); Calcium 9.2 mg/dL (8.5-10.5); Carbon Dioxide 28 mmol/L (22-29); Chloride 97 mmol/L (98-107); Creatinine Clr Calc Pharmacy 64.6738; Globulin 3.2 g/dL (1.3-4.6); Glomerular Filtration Rate 123.1 mL/min (90-130); Glucose 93 mg/dL (65-115); Lipase 112 U/L (13-60); Magnesium 1.8 mg/dL (1.7-2.3); Osmolality Calculated 282 mOsm/kg (285-295); Potassium 3.9 mmol/L (3.5-5.1); Sodium 136 mmol/L (136-145); Total Bilirubin 0.5 mg/dL (0.15-1.2); Total Protein 6.4 g/dL (6.6-8.7)
[2020-09-08 11:49] LABS: Lactic Sepsis W/Reflex 1.3 mmol/L (0.5-2.2)
[2020-09-08] MEDS: piperacillin-tazobactam 3.375 GM in sodium chloride 0.9% (plus) 50 ML IV ×2 (11:57→21:36)
[2020-09-08] MEDS: FUROsemide 10 mg/mL SDV 4mL 40 MG IVP ×2 (11:57→22:42)
--- NOTE | 2020-09-08 12:04 | CTR_ITS ---
PROCEDURE INFORMATION: Exam: CT Chest With Contrast; Diagnostic Exam date and time: 09/08/2020 12:42 PM Age: 65 years old Clinical indication: Injury or trauma; Fall; Generalized; Blunt trauma (contusions or hematomas); Injury date: Week of 08/20/20; Prior surgery; Surgery type: Spleen, valve, stents, hyst; Patient HX: Ruptured diaphragm, pneumothorax, ruptured spleen, broken ribs from previous trauma per patient TECHNIQUE: Imaging protocol: Diagnostic computed tomography of the chest with contrast. Radiation optimization: All CT scans at this facility use at least one of these dose optimization techniques: automated exposure control; mA and/or kV adjustment per patient size (includes targeted exams where dose is matched to clinical indication); or iterative reconstruction. Contrast material: OMNI 300; Contrast volume: 95 ml; Contrast route: INTRAVENOUS (IV); COMPARISON: CT chest abd pel w con* 08/27/2020 1:05 PM RADIATION DOSE METRICS: Total DLP (mGy-cm): 1224.29 FINDINGS: Tubes, catheters and devices: Termination of central venous catheter in the right atrium. Lungs: Emphysematous change and interstitial disease again demonstrated. Asymmetric bilateral airspace disease, with marked interval worsening in right-sided airspace disease. Pleural spaces: Newly developed small right pleural effusion with interval decrease in size of left pleural effusion. Heart: Stable cardiomegaly and mitral valve replacement. Aorta: Normal caliber of the thoracic aorta. Stable left subclavian artery stent. Lymph nodes: Multiple lymph nodes including 2.5 x 1.8 x 1.6 cm precarinal lymph node. Bones/joints: Osteopenia, degenerative change, and mild scoliosis. Multiple displaced left rib fractures again demonstrated, without significant interval healing. Soft tissues: Asymmetric parenchymal density in the left breast. IMPRESSION: 1. Asymmetric bilateral airspace disease, with marked interval worsening in right-sided airspace disease. 2. Newly developed small right pleural effusion with interval decrease in size of left pleural effusion. 3. Multiple displaced left rib fractures again demonstrated, without significant interval healing. 4. Additional findings as described above. PROCEDURE INFORMATION: Exam: CT Abdomen And Pelvis With Contrast Exam date and time: 09/08/2020 12:42 PM Age: 65 years old Clinical indication: Injury or trauma; Fall; Generalized; Blunt trauma (contusions or hematomas); Injury date: Week of 08/20/20; Prior surgery; Surgery type: Spleen, valve, stents, hyst; Patient HX: Ruptured diaphragm, pneumothorax, ruptured spleen, broken ribs from previous trauma per patient TECHNIQUE: Imaging protocol: Computed tomography of the abdomen and pelvis with contrast. Radiation optimization: All CT scans at this facility use at least one of these dose optimization techniques: automated exposure control; mA and/or kV adjustment per patient size (includes targeted exams where dose is matched to clinical indication); or iterative reconstruction. Contrast material: OMNI 300; Contrast volume: 95 ml; Contrast route: INTRAVENOUS (IV); COMPARISON: CT chest abd pel w con* 08/27/2020 1:05 PM RADIATION DOSE METRICS: Total DLP (mGy-cm): 1224.29 FINDINGS: Liver: No focal hepatic mass. Gallbladder and bile ducts: Unremarkable gallbladder. Pancreas: No pancreatic mass or ductal dilatation. Spleen: Status post splenectomy. Adrenal glands: Subtle left adrenal nodularity. Kidneys and ureters: Stable 12 mm left renal cyst. No hydronephrosis. Stomach and bowel: Wall thickening in the nondistended stomach. Small bowel dilatation without a focal transition zone. Scattered air-fluid levels and diverticula. Mild right colonic wall thickening. Appendix: No acute appendicitis. Intraperitoneal space: Trace free fluid in the pelvis. Vasculature: Prominent vascular calcification. Normal caliber of the abdominal aorta. Lymph nodes: No enlarged lymph nodes. Urinary bladder: Conn catheter in the decompressed bladder. Reproductive: Status post hysterectomy. 2.5 cm left ovarian cyst. Bones/joints: Osteopenia, degenerative change, and dextroscoliosis. Soft tissues: Skin delphine in the anterior abdominal wall midline. Mild subcutaneous edema. CT/CT chest abd pel w con* IMPRESSION: 1. No acute visceral injury in the abdomen or pelvis. 2. Additional findings as described above. Radiation Dose CTDIVOL = (mGy): DLP = 1224.29~1224.29 (mGy-cm)
--- NOTE | 2020-09-08 12:25 | ECG_ITS ---
[facility] Test Date: 2020-09-08 Pat Name: Clementina Mcghee Department: Room: Gender: Female Electromechanical Technologist: : 1955 Requested By: Dioni Randle Order Number: [id number] Reading MD: LINDA CAI Measurements Intervals [place] Rate: 110 P: NV: QRS: -40 QRSD: 171 T: 138 QT: 373 QTc: 506 Interpretive Statements ATRIAL FIBRILLATION WITH RAPID VENTRICULAR RESPONSE LEFT AXIS DEVIATION [QRS AXIS < -30] LEFT BUNDLE BRANCH BLOCK [120+ ms QRS DURATION, 80+ ms Q/S IN V1/V2, 85+ ms R IN I/aVL/V5/V6] Compared to ECG 08/27/2020 14:16:27 Left-axis deviation now present Electronically Signed On 09-08-2020 19:58:18 VIRTUAL REALITY SPECIALIST by LINDA CAI [email or web address]
[2020-09-08 12:58] LABS: Bilirubin Urine 1+ (Negative); Blood Urine 2+ (Negative); Glucose Urine UA Norm (Normal); Ketones Urine 1+ (Negative); Leukocyte Esterase Urine Negative (Negative); Nitrate Urine Negative (Negative); Protein Urine 1+ (Negative); Urine Appearance Clear (CLEAR); Urine Color Yellow (Yellow); Urobilinogen Urine 1 mg/dL (Negative)
[2020-09-08] MEDS: levofloxacin-dextrose 5 % 750 MG/150 ML PREMIX 100 MG IV (13:00)
[2020-09-08 13:02] LABS: Add Urine Culture? No; Bacteria Urine TRACE /hpf; Mucus Urine 2+ /hpf; RBC Urine 0-4 /hpf (0-2); Squamous Epithelial Cell Urine 0-4 /hpf (0-5)
--- NOTE | 2020-09-08 14:35 | PC.NURSE ---
pt to CT scan by stretcher with tech and RT.
[2020-09-08] MEDS: iohexol 300 mg/mL 100 mL Btl IV (14:49)
--- NOTE | 2020-09-08 16:21 | PC.NURSE ---
pt off bipap for the last hour. pt on 3L per [place]. Pt oxygen staying above 97%
[2020-09-08] MEDS: LORazepam 2 mg/mL INJ 1 mL 1 MG IVP (16:37)
--- NOTE | 2020-09-08 17:20 | PM.HP ---
Providers/Chief Complaint Primary Care Provider: JUSTIN Mccollum Chief Complaint: Abd pain History of Present Illness Clementina Mcghee is a 65 year old female with PMH of A.fib, mitral valve repair, chronic diastolic heart failure, COPD, was recently discharged from [facility] after repair of diaphragmatic rupture, as well as status post splenectomy, she was admitted there after being transferred from [facility],on 08/27, as as on that day during the ER evaluation they found that she had left hemothorax, as well as, left diaphragmatic rupture, which she sustained after a fall at home. Today she came in with worsening mentation, started last night, according to the son, she was altered, and not behaving properly, at the baseline he is alert oriented*3. Upon arrival in the ER, she was worked up for altered mental status. Evaluation by the ER physician, was suspicious for volume overload, due to decompensated heart failure, x-ray chest, CT chest abdomen pelvis, without contrast, proBNP, ABG,EKG : A.fib with RVR, along with other labs were obtained, subclavian central line was placed, as She is hard stick. She was given Lasix 40 mg IV x1 dose, had good urine output close to:2ls, she was also initially placed on BiPAP in the ER to help with her decompensated heart failure. Zosyn and levofloxacin was given as CT chest is suggestive of pneumonia. When I evaluated the patient, her shortness of breath was improved, her mentation had improved. Review of Systems Const: Denies: fever(s), chills or body aches Resp: Denies: productive cough or wheezing GI: Denies: abdominal pain, nausea, vomiting, diarrhea or constipation : Denies: flank pain Musc: Denies: back pain, extremity pain or extremity swelling Neuro: Denies: headache(s) or difficulty walking Medications/Allergies Home Medications Medication Instructions Recorded Confirmed Last Taken Type ascorbate calcium (vitamin C) 500 1 gm PO DAILY tab 08/29/19 09/08/20 08/27/20 History mg tablet INR #1 ea 03/23/20 09/08/20 Unknown Rx nitroglycerin 0.4 mg sublingual 0.4 mg SUBLINGUAL Q5M PRN #30 tab 04/02/20 09/08/20 Unknown Rx tablet ranolazine 500 mg tablet,extended 500 mg PO Q12H #180 tab 06/02/20 09/08/20 08/27/20 Rx release,12 hr albuterol sulfate [ProAir HFA] 2 puff INHALATION Q4H PRN 06/23/20 09/08/20 Unknown History amiodarone [Pacerone] 200 mg PO DAILY@06/23/20 09/08/20 08/27/20 History citalopram 10 mg PO DAILY@06/23/20 09/08/20 08/26/20 History furosemide 40 - 60 mg PO DAILY@06/23/20 09/08/20 08/27/20 History lisinopril 5 mg PO DAILY@06/23/20 09/08/20 08/27/20 History metoprolol succinate 25 mg PO DAILY@06/23/20 09/08/20 08/27/20 History simvastatin 40 mg PO DAILY@06/23/20 09/08/20 08/26/20 History warfarin 3 mg PO DAILY@06/23/20 09/08/20 08/27/20 History isosorbide mononitrate 30 mg 30 mg PO DAILY@07 #90 tab 06/25/20 09/08/20 08/27/20 Rx tablet,extended release 24 hr tiotropium bromide 2.5 See Rx Instructions .ROUTE 06/25/20 09/08/20 08/27/20 Rx mcg/actuation mist for inhalation .COMPLEX #4 g prednisone 1 mg tablet See Rx Instructions PO DAILY #200 07/29/20 09/08/20 08/27/20 Rx tab prednisone 5 mg tablet See Rx Instructions PO DAILY #90 07/29/20 09/08/20 08/27/20 Rx tab Dayvigo 5 mg PO BEDTIME@2200 08/13/20 09/08/20 Unknown History hydroxychloroquine 200 mg PO BID@0700,1900 08/13/20 09/08/20 08/27/20 History melatonin 10 mg PO BEDTIME@2200 PRN 08/13/20 09/08/20 08/26/20 History potassium chloride 10 meq PO TID@07,12,19 08/13/20 09/08/20 08/27/20 History cyclobenzaprine 10 mg tablet 10 mg PO TID PRN #30 tab 08/21/20 09/08/20 Unknown Rx tramadol 50 mg tablet 50 mg PO TID PRN #30 tab 08/21/20 09/08/20 Unknown Rx ibuprofen 200 - 400 mg PO Q6H PRN 08/27/20 09/08/20 08/27/20 History mupirocin 1 applic TOPICAL TID@07,12,19 08/27/20 09/08/20 08/27/20 History zolpidem 10 mg PO BEDTIME@2200 08/27/20 09/08/20 08/26/20 History oxycodone-acetaminophen 1 tab PO Q8H PRN 09/08/20 09/08/20 Unknown History Allergies Allergy/AdvReac Type Severity Reaction Status Date / Time No Known Allergies Allergy Verified 08/21/20 13:29 PFSH Acute PFSH: Medical History Anticoagulated on warfarin ASHD (arteriosclerotic heart disease) Atrial flutter CHF (congestive heart failure) COPD (chronic obstructive pulmonary disease) Depression Emphysema lung Fall Hyperlipidemia Hypertension Multiple rib fractures Osteoporosis PVD (peripheral vascular disease) Surgical History Hx of coronary angioplasty Hx of hysterectomy Hx of mitral valve repair Hx of sinus surgery Hx of tonsillectomy Family History Family/Other Diabetes Cancer Heart disease Katja-Danlos syndrome type VIII Social History Smoking and tobacco status: current some day smoker cigarettes Packs smoked per day: 0.5 Years cigarettes smoked: 40 Second hand smoke exposure: No Alcohol intake: never Lives independently: Yes Marital status: Current occupational status: retired History of recent travel: No Current gender identity: Female Vitals/I&O/Wt Last Vital Signs Temp 97.9 F 09/08/20 10:17 Pulse 106 H 09/08/20 16:41 Resp 25 H 09/08/20 16:41 BP 146/115 09/08/20 16:41 Pulse Ox 100 09/08/20 16:41 09/08/20 09/08/20 09/08/20 06:59 14:59 22:59 Intake Total 200 / 200 Output Total 1999 / 1999 Balance -1800 / -1800 Weight last 48 hrs Weight 68.039 kg Physical Exam Const: COMMON NORMALS: patient oriented x3 HENMT: COMMON NORMALS: normocephalic and atraumatic Chest: CHEST: Yes Symmetrical chest wall rise Resp: COMMON NORMALS: normal respiratory effort OTHER: b/l Basal Rales Present,diminished air entry more on rt. Cardio: PERIPHERAL PULSES: Peripheral pulses 2+ throughout OTHER: Irregularly irregular rhythm, S1-S2 variable intensity, ejection systolic murmur in right second intercostal, pansystolic murmur in mitral area. GI: COMMON NORMALS: Normal to inspection, nondistended, normoactive bowel sounds present, Soft to palpation, non-tender, No hepatosplenomegaly present and no masses AUSCULTATION: Yes normoactive bowel sounds PALPATION: Yes Soft to palpation and Yes No hepatosplenomegaly present RECTAL EXAM: deferred Extremity: NARRATIVE EXTREMITY EXAM: 1-2+ pitting edema present in bilateral lower extremity Neuro: COMMON NORMALS: patient oriented x3 Urinary Catheter Management^: Conn: Cath Placed During This Visit: yes Urinary Catheter Date of Insertion: 09/08/20 Urinary Catheter Time of Insertion: 15:30 Data : 09/08/20 10:40 09/08/20 11:15 Micro: Microbiology 09/08/20 11:15 Blood Culture - Preliminary Blood SPECIMEN COLLECTED 09/08/20 11:27 Blood Culture - Preliminary Blood SPECIMEN COLLECTED A&P Assessment and plan (1) Acute metabolic encephalopathy: Acute metabolic encephalopathy 2/2 hypoxic respiratory failure2/2 decompensated systolic heart failure/HAP ABG: Is suggestive of hypoxic respiratory failure. CT chest abdomen and pelvis without contrast: Asymmetric bilateral airspace disease, with marked interval worsening in right-sided airspace disease. Newly developed small right pleural effusion with interval decrease in size of left pleural effusion. Multiple displaced left rib fractures again demonstrated, without significant interval healing. No acute visceral injury in the abdomen or pelvis Lactic acid normal Procalcitonin Blood culture Initially on BiPAP/currently switched to oxygen through nasal cannula. Lasix 40 mg IV every 12 hours daily Vancomycin Zosyn Levofloxacin Status: Acute (2) Congestive heart failure: decompensated systolic heart failure Status: Acute (3) HCAP (healthcare-associated pneumonia): Status: Acute (4) Respiratory failure with hypoxia: Status: Acute (5) Atrial flutter: Continue metoprolol succinate 25 mg p.o. daily Continue amiodarone 200 mg p.o. daily Status: Acute (6) COPD (chronic obstructive pulmonary disease): Status: Acute (7) Ribs, multiple fractures: Status: Acute (8) Post-splenectomy: Status: Chronic (9) Diaphragm, rupture: Status: Chronic (10) Elevated troponin: Status: Acute Additional A&P Information Code Status:Full code DVT PPX: On lovenox Disposition :Home. Attestations Medical Necessity Statement*: Patient needs to be in hospital for management of decompensated heart failure, pneumonia, metabolic encephalopathy. Anticipated length of stay greater than 2 midnight Coding Level of Care Code Acute Demolition Expert for [facility] Fwd Diagnoses Acute metabolic encephalopathy G93.41 Congestive heart failure I50.9 HCAP (healthcare-associated pneumonia) J18.9 Respiratory failure with hypoxia J96.91 Atrial flutter I48.92 COPD (chronic obstructive pulmonary disease) J44.9 Ribs, multiple fractures S22.49XA Post-splenectomy Z90.81 Diaphragm, rupture K44.9 Elevated troponin R77.8
[2020-09-08] MEDS: vancomycin 1,000 MG in sodium chloride 0.9% 250 ML 250 MG IV (17:56)
[2020-09-08 19:50] LABS: SARS Covid-2 Antigen Negative (Negative)
[2020-09-08] MEDS: citalopram 20 mg Tablet 10 MG PO (21:36)
[2020-09-08] MEDS: potassium chloride ER 10 mEq Tablet PO (21:37)
[2020-09-08] MEDS: oxyCODONE-APAP 5-325 mg Tablet 1 TAB PO (21:42)
[2020-09-09] VITALS (76 sets, daily range): BP systolic 87–129; BP diastolic 46–101; PULSE 79–115; RESP 14–41; TEMP 36.6; O2SAT 90–100
[2020-09-09 03:13] LABS: Basophils # 0.1 10^3/uL (0.0-0.1); Basophils % 0.7 %; Eosinophils # 0.1 10^3/uL (0.0-0.8); Eosinophils % 0.6 %; Hematocrit 32.4 % (37.0-47.0); Hemoglobin 10.2 g/dL (11.5-15.3); Lymphocytes # 0.8 10^3/uL (0.8-4.8); Lymphocytes % 8.3 %; Mean Corpuscular HGB Conc 31.5 g/dL (30.0-36.0); Mean Corpuscular Hemoglobin 30.8 pg (28.0-34.0); Mean Corpuscular Volume 97.9 fL (81-99); Mean Platelet Volume 9.8 fL (7.4-10.4); Monocytes # 1.1 10^3/uL (0.2-0.9); Monocytes % 10.8 %; Neutrophils # 7.97 10^3/uL (1.8-7.7); Nucleated Red Blood Cells % 0.2 %; Platelet Count 474 10^3/cmm (130-400); Red Blood Count 3.31 10^6/uL (4.1-5.3); Red Cell Distribution Width 16.8 % (12.1-15.1); White Blood Count 10.1 10^3/uL (4.0-10.0)
[2020-09-09] MEDS: piperacillin-tazobactam 3.375 GM in sodium chloride 0.9% (plus) 50 ML IV ×3 (03:18→20:01)
[2020-09-09 03:27] LABS: INR 2.82 (0.8-1.2)
[2020-09-09 03:30] LABS: Alanine Aminotransferase 39 U/L (0-33); Albumin Level 2.8 g/dL (3.5-5.2); Alkaline Phosphatase 128 IU/L (35-105); Anion Gap 15.5 (5-19); Aspartate Amino Transferase 22 U/L (0-32); Blood Urea Nitrogen 11 mg/dL (8-23); Calcium 8.6 mg/dL (8.5-10.5); Carbon Dioxide 31 mmol/L (22-29); Chloride 97 mmol/L (98-107); Creatinine Clr Calc Pharmacy 64.6738; Globulin 3.6 g/dL (1.3-4.6); Glomerular Filtration Rate 83.5 mL/min (90-130); Glucose 91 mg/dL (65-115); Osmolality Calculated 289 mOsm/kg (285-295); Potassium 3.5 mmol/L (3.5-5.1); Sodium 140 mmol/L (136-145); Total Bilirubin 0.4 mg/dL (0.15-1.2); Total Protein 6.4 g/dL (6.6-8.7)
[2020-09-09 03:39] LABS: Procalcitonin 0.06 ng/mL (0-0.5)
[2020-09-09 03:40] LABS: Magnesium 1.8 mg/dL (1.7-2.3); Thyroid Stimulating Hormone 3.73 uIU/mL (0.27-4.20)
[2020-09-09] MEDS: vancomycin 1,000 MG in sodium chloride 0.9% 250 ML 250 MG IV ×2 (05:20→18:28)
--- NOTE | 2020-09-09 05:33 | PC.NURSE ---
Pulled morphine from pyxis to give to patient after she stating her pain level was at a 9 on 0-10 scale. Patient decided she did not want morphine only her percocet. Wasted 4mg vial of morphine, witnessed by Capri Suh RN. Continue care.
[2020-09-09] MEDS: potassium chloride ER 10 mEq Tablet PO ×3 (06:01→18:29)
[2020-09-09] MEDS: metoprolol succinate ER (24 HR) 25 mg Tablet PO (06:01)
[2020-09-09] MEDS: amiodarone 200 mg Tablet PO (06:01)
[2020-09-09] MEDS: isosorbide mononitrate ER 30 mg Tablet PO (06:02)
[2020-09-09] MEDS: lisinopril 5 mg Tablet PO (06:04)
[2020-09-09] MEDS: ranolazine (12HR) 500 mg Tablet PO ×2 (06:04→18:30)
[2020-09-09] MEDS: levofloxacin-dextrose 5 % 750 MG/150 ML PREMIX 100 MG IV (09:01)
--- NOTE | 2020-09-09 09:55 | P.PN_ITS ---
Subjective Subjective: Interval history: Patient was seen and examined this morning. Currently she is at baseline mentation mentation. She is alert oriented x3, pleasant in her communications. Shortness of breath is improved. Good urine output. She was found to be in A. fib/flutter with RVR. Has remained afebrile. Other vitals and labs have been reviewed. Medications: Reviewed: Yes Vitals/I&O/Wt Last Vital Signs Temp 97.9 F 09/08/20 10:17 Pulse 100 09/09/20 08:25 Resp 17 09/09/20 08:25 BP 89/62 09/09/20 04:15 Pulse Ox 99 09/09/20 08:25 09/08/20 09/09/20 09/09/20 22:59 06:59 14:59 Intake Total 370 / 570 110 / 680 300 / 300 Output Total 1700 / 3700 Balance 370 / -1430 -1590 / -3020 300 / 300 Weight last 48 hrs Weight 66.423 kg Weight 68.039 kg Physical Exam Const: COMMON NORMALS: patient oriented x3 HENMT: COMMON NORMALS: normocephalic and atraumatic HEAD & SCALP: normocephalic and atraumatic Chest: CHEST: Yes Symmetrical chest wall rise Resp: COMMON NORMALS: normal respiratory effort OTHER: diminished air entry more on rt. Cardio: COMMON NORMALS: Peripheral pulses 2+ throughout PERIPHERAL PULSES: Peripheral pulses 2+ throughout OTHER: Irregularly irregular rhythm, S1-S2 variable intensity, ejection systolic murmur in right second intercostal, pansystolic murmur in mitral area. GI: COMMON NORMALS: Normal to inspection, nondistended, normoactive bowel sounds present, Soft to palpation, non-tender, No hepatosplenomegaly present and no masses AUSCULTATION: Yes normoactive bowel sounds PALPATION: Yes Soft t o palpation and Yes No hepatosplenomegaly present RECTAL EXAM: deferred Extremity: NARRATIVE EXTREMITY EXAM: 1-2+ pitting edema present in bilateral lower extremity Neuro: COMMON NORMALS: patient oriented x3 Urinary Catheter Management^: Conn: Cath Placed During This Visit: yes Reason for Continuing Indwelling Catheter: Accurate Measurement of Urinary Output in Critically Ill Patients Urinary Catheter Date of Insertion: 09/08/20 Urinary Catheter Time of Insertion: 15:30 Data : 09/09/20 03:01 09/09/20 03:01 Micro: Microbiology 09/08/20 11:15 Blood Culture - Preliminary Blood SPECIMEN COLLECTED 09/08/20 11:27 Blood Culture - Preliminary Blood SPECIMEN COLLECTED A&P Assessment and plan (1) Atrial flutter: A. fib/flutter with RVR. On amidarone Drip Therapeutic INR On warfarin at home.Will place her on Lovenox as inpatient. Metoprolol succinate 25 mg p.o. daily amiodarone 200 mg p.o. daily held Status: Acute (2) Acute metabolic encephalopathy: Acute metabolic encephalopathy 2/2 hypoxic respiratory failure2/2 deco mpensated systolic heart failure/HAP:Resolved ABG: Is suggestive of hypoxic respiratory failure. CT chest abdomen and pelvis without contrast: Asymmetric bilateral airspace disease, with marked interval worsening in right-sided airspace disease. Newly developed small right pleural effusion with interval decrease in size of left pleural effusion. Multiple displaced left rib fractures again demonstrated, without significant interval healing. No acute visceral injury in the abdomen or pelvis Lactic acid normal Procalcitonin: 0.06 Blood culture: NTD MRSA PCR Initially on BiPAP/currently switched to oxygen through nasal cannula. Lasix 40 mg IV every 12 hours daily Vancomycin : ( 3/2 - ) Zosyn : ( 3/2 - ) Levofloxacin : ( 3/2 - ) Status: Acute (3) Congestive heart failure: decompensated systolic heart failure Status: Acute (4) HCAP (healthcare-associated pneumonia): Status: Acute (5) Respiratory failure with hypoxia: Status: Acute (6) COPD (chronic obstructive pulmonary disease): Status: Acute (7) Ribs, multiple fractures: Status: Acute (8) Post-splenectomy: Status: Chronic (9) Diaphragm, rupture: Status: Chronic (10) Elevated troponin: Status: Acute Additional A&P Information Code Status:Full code DVT PPX: On lovenox Disposition :Home. Attestations Medical Necessity Statement*: Patient needs to be in hospital for management of PNA,Heart failure,afib Coding Level of Care Code Acute Demonstrator [employer] for [facility] Fwd Diagnoses Atrial flutter I48.92 Acute metabolic encephalopathy G93.41 Congestive heart failure I50.9 HCAP (healthcare-associated pneumonia) J18.9 Respiratory failure with hypoxia J96.91 COPD (chronic obstructive pulmonary disease) J44.9 Ribs, multiple fractures S22.49XA Post-splenectomy Z90.81 Diaphragm, rupture K44.9 Elevated troponin R77.8
[2020-09-09] MEDS: FUROsemide 10 mg/mL SDV 4mL 40 MG IVP ×2 (10:03→22:54)
[2020-09-09] MEDS: oxyCODONE-APAP 5-325 mg Tablet 1 TAB PO ×2 (10:03→20:45)
[2020-09-09] MEDS: citalopram 20 mg Tablet 10 MG PO (18:28)
[2020-09-09] MEDS: atorvastatin 40 mg Tablet 20 MG PO (18:28)
[2020-09-10] VITALS (28 sets, daily range): BP systolic 77–114; BP diastolic 52–90; PULSE 70–115; RESP 12–29; TEMP 36.4–36.6; O2SAT 90–97
[2020-09-10] MEDS: piperacillin-tazobactam 3.375 GM in sodium chloride 0.9% (plus) 50 ML IV ×3 (03:33→19:24)
[2020-09-10] MEDS: vancomycin 1,000 MG in sodium chloride 0.9% 250 ML 250 MG IV (05:01)
[2020-09-10 05:12] LABS: Basophils # 0.1 10^3/uL (0.0-0.1); Basophils % 0.7 %; Eosinophils # 0.1 10^3/uL (0.0-0.8); Eosinophils % 0.7 %; Hemoglobin 10.1 g/dL (11.5-15.3); Lymphocytes # 0.7 10^3/uL (0.8-4.8); Lymphocytes % 7.1 %; Mean Corpuscular HGB Conc 30.6 g/dL (30.0-36.0); Mean Corpuscular Hemoglobin 30.9 pg (28.0-34.0); Mean Corpuscular Volume 100.9 fL (81-99); Mean Platelet Volume 10.1 fL (7.4-10.4); Monocytes % 9.9 %; Neutrophils # 8.47 10^3/uL (1.8-7.7); Neutrophils % 80.9 %; Nucleated Red Blood Cells % 0.3 %; Platelet Count 526 10^3/cmm (130-400); Red Blood Count 3.27 10^6/uL (4.1-5.3); Red Cell Distribution Width 16.9 % (12.1-15.1); White Blood Count 10.5 10^3/uL (4.0-10.0)
[2020-09-10 05:19] LABS: INR 3.45 (0.8-1.2)
[2020-09-10 05:38] LABS: Alanine Aminotransferase 28 U/L (0-33); Albumin Level 2.8 g/dL (3.5-5.2); Alkaline Phosphatase 119 IU/L (35-105); Anion Gap 10.3 (5-19); Aspartate Amino Transferase 21 U/L (0-32); Blood Urea Nitrogen 7 mg/dL (8-23); Calcium 8.9 mg/dL (8.5-10.5); Carbon Dioxide 34 mmol/L (22-29); Chloride 94 mmol/L (98-107); Globulin 3.6 g/dL (1.3-4.6); Glomerular Filtration Rate 83.5 mL/min (90-130); Glucose 125 mg/dL (65-115); Osmolality Calculated 279 mOsm/kg (285-295); Potassium 3.3 mmol/L (3.5-5.1); Sodium 135 mmol/L (136-145); Total Bilirubin 0.5 mg/dL (0.15-1.2); Total Protein 6.4 g/dL (6.6-8.7)
[2020-09-10] MEDS: isosorbide mononitrate ER 30 mg Tablet PO (06:02)
[2020-09-10] MEDS: ranolazine (12HR) 500 mg Tablet PO ×2 (06:02→18:04)
[2020-09-10] MEDS: metoprolol succinate ER (24 HR) 25 mg Tablet PO (06:02)
[2020-09-10] MEDS: lisinopril 5 mg Tablet PO (06:02)
[2020-09-10] MEDS: potassium chloride ER 10 mEq Tablet PO ×2 (06:02→18:04)
[2020-09-10] MEDS: potassium chloride ER 20 mEq Tablet 40 MEQ PO (09:01)
[2020-09-10] MEDS: TRAMadol 50 mg Tablet PO ×3 (09:01→22:58)
[2020-09-10] MEDS: amiodarone 200 mg Tablet PO (09:01)
[2020-09-10] MEDS: levofloxacin-dextrose 5 % 750 MG/150 ML PREMIX 100 MG IV (09:02)
--- NOTE | 2020-09-10 09:07 | PC.CHAP ---
Pastoral Care Encounter/Spiritual Assessment Type of Contact [] Declined cable spooler visit [] Patient/Family/Request visit [] Outpatient visit [] Follow-up visit [] Physician referral [] Code/Alert [x] Routine visit [] Staff referral [] Actively dying [] Patient sleeping [] Family support [] [] Out of room [] Palliative care [] [] Receiving care in room [] Pre-surgical visit [] Trauma [] Long length of stay [x] ICU visit [] Other: Relational/Emotional Strength [] Patient feels connected with others/family/visitors/staff [] Distress [] Loneliness/isolation [] Abandonment Spirituality of Patient [x] Person of Dawna [] Attends [facility] of their Dawna [] Believes in Prayer [] Reads Bible or Zoroastrianism materials [] There are Spiritual issues to be addressed Consumer Insight Analyst Interventions [x] Prayer [x] Active listening [x] Non-anxious presence [x] Spiritual/emotional support [] Crisis/trauma care [] Spiritual counseling [] Bereavement support [] Provided bereavement packet [] Provided Bible/devotional materials [] Provided toy/stuffed animal, coloring book to patient or family member [] Provided Communion [] Anointing/[place] [] Salvation [x] Completed spiritual assessment [] Other: Impact on Illness or Injury [] Angry [] Fearful [] Anxious [] Often cries [] Exhaustion [] Unable to work [] Unable to attend denominational [] Unable to walk/stand [] Unable to read [] Unable to drive [] Unable to eat/drink [] Unable to sleep [] Unable to be with family [] Patient intubated [] Other: Summary setting up in chair... having breakfast... feeling much better.. delightful lady Time spent with patient 10 min
[2020-09-10] MEDS: FUROsemide 10 mg/mL SDV 4mL 40 MG IVP (11:30)
[2020-09-10] MEDS: oxyCODONE-APAP 5-325 mg Tablet 1 TAB PO ×2 (13:27→19:42)
--- NOTE | 2020-09-10 14:34 | P.PN_ITS ---
Subjective Subjective: Interval history: Patient was seen and examined this morning. Fells better, continues to have good urine output , Tolerating diet well. Continues to be in A. fib/flutter with rate in high 90s to low 100s Has remained afebrile. Other vitals and labs have been reviewed. Medications: Reviewed: Yes Vitals/I&O/Wt Last Vital Signs Temp 97.6 F 09/10/20 08:00 Pulse 101 H 09/10/20 13:00 Resp 20 H 09/10/20 13:27 BP 97/72 09/10/20 13:00 Pulse Ox 93 09/10/20 13:00 09/09/20 09/10/20 09/10/20 22:59 06:59 14:59 Intake Total 567 / 1867 300 / 2167 650 / 650 Output Total 500 / 1250 840 / 2090 800 / 800 Balance 67 / 617 -540 / 77 -150 / -150 Weight last 48 hrs Weight 66.451 kg Weight 66.423 kg Physical Exam Const: COMMON NORMALS: patient oriented x3 HENMT: COMMON NORMALS: normocephalic and atraumatic HEAD & SCALP: normocephalic and atraumatic Chest: CHEST: Yes Symmetrical chest wall rise Resp: COMMON NORMALS: normal respiratory effort OTHER: diminished air entry more on rt. Cardio: COMMON NORMALS: Peripheral pulses 2+ throughout PERIPHERAL PULSES: Peripheral pulses 2+ throughout OTHER: Irregularly irregular rhythm, S1-S2 variable intensity, ejection systolic murmur in right second intercostal, pansystolic murmur in mitral area. GI: COMMON NORMALS: Normal to inspection, nondistended, normoactive bowel sounds present, Soft to palpation, non-tender, No hepatosplenomegaly present and no masses AUSCULTATION: Yes normoactive bowel sounds PALPATION: Yes Soft to palpation and Yes No hepatosplenomegaly present RECTAL EXAM: deferred Extremity: NARRATIVE EXTREMITY EXAM: 1-2+ pitting edema present in bilateral lower extremity Neuro: COMMON NORMALS: patient oriented x3 Urinary Catheter Management^: Conn: Cath Placed During This Visit: yes, but has since been removed by the nurse Reason for Continuing Indwelling Catheter: Accurate Measurement of Urinary Output in Critically Ill Patients Urinary Catheter Date of Insertion: 09/08/20 Urinary Catheter Time of Insertion: 15:30 Date Urinary Catheter Removed: 09/09/20 Time Urinary Catheter Discontinued: 08:45 Data : 09/10/20 04:50 09/10/20 04:50 Micro: Microbiology 09/08/20 11:15 Blood Culture - Preliminary Blood Coagulase negativ staphylococc 09/08/20 11:27 Blood Culture - Preliminary Blood NEGATIVE TO DATE A&P Assessment and plan (1) Atrial flutter: A. fib/flutter with RVR. On amidarone Drip Therapeutic INR On warfarin at home.Will place her on Lovenox as inpatient. Metoprolol succinate 25 mg p.o. daily amiodarone 200 mg p.o. daily Status: Acute (2) Acute metabolic encephalopathy: Acute metabolic encephalopathy 2/2 hypoxic respiratory failure2/2 decompensated systolic heart failure/HAP:Resolved ABG: Is suggestive of hypoxic respiratory failure. CT chest abdomen and pelvis without contrast: Asymmetric bilateral airspace disease, with marked interval worsening in right-sided airspace disease. Newly developed small right pleural effusion with interval decrease in size of left pleural effusion. Multiple displaced left rib fractures again demonstrated, without significant interval healing. No acute visceral injury in the abdomen or pelvis Lactic acid normal Procalcitonin: 0.06 Blood culture:07/13 Cogulase negative staph. Likely contaminant MRSA PCR : Initially on BiPAP/currently switched to oxygen through nasal cannula. Lasix 40 mg IV every 12 hours daily Vancomycin : ( 3/2 - ) Zosyn : ( 3/2 - ) Levofloxacin : ( 3/2 - ) Status: Acute (3) Congestive heart failure: decompensated systolic heart failure Status: Acute (4) HCAP (healthcare-associated pneumonia): Status: Acute (5) Respiratory failure with hypoxia: Status: Acute (6) COPD (chronic obstructive pulmonary disease): Status: Acute (7) Ribs, multiple fractures: Status: Acute (8) Post-splenectomy: Status: Chronic (9) Diaphragm, rupture: Status: Chronic (10) Elevated troponin: Status: Acute Additional A&P Information Code Status:Full code DVT PPX: On lovenox Disposition :Home. Attestations Medical Necessity Statement*: Patient needs to be in hospital for management of PNA,Heart failure,afib Coding Level of Care Code Acute Wharf Builder for [facility] Diagnoses Atrial flutter I48.92 Acute metabolic encephalopathy G93.41 Congestive heart failure I50.9 HCAP (healthcare-associated pneumonia) J18.9 Respiratory failure with hypoxia J96.91 COPD (chronic obstructive pulmonary disease) J44.9 Ribs, multiple fractures S22.49XA Post-splenectomy Z90.81 Diaphragm, rupture K44.9 Elevated troponin R77.8
[2020-09-10] MEDS: cyclobenzaprine 10 mg Tablet PO (16:51)
[2020-09-10 17:47] LABS: Vancomycin Trough 20.8 ug/mL (10-15)
[2020-09-10] MEDS: citalopram 20 mg Tablet 10 MG PO (18:05)
[2020-09-10] MEDS: atorvastatin 40 mg Tablet 20 MG PO (18:05)
[2020-09-10] MEDS: vancomycin 750 MG in sodium chloride 0.9% 250 ML 250 MG IV (19:42)
[2020-09-10] MEDS: ondansetron 2 mg/ML SDV 2 mL 4 MG IVP (21:31)
--- NOTE | 2020-09-10 22:05 | PC.NURSE ---
MD Keegan at bedside rounding on patient. Gave v/o for RN to resume discontinued Amiodarone, and continue infusion until tomorrow which would be readdressed on dayshift.
[2020-09-11] VITALS (28 sets, daily range): BP systolic 99–136; BP diastolic 31–88; PULSE 82–117; RESP 14–25; TEMP 36.5–36.7; O2SAT 91–97
[2020-09-11] MEDS: piperacillin-tazobactam 3.375 GM in sodium chloride 0.9% (plus) 50 ML IV ×3 (04:06→19:22)
[2020-09-11 04:21] LABS: Basophils # 0.1 10^3/uL (0.0-0.1); Basophils % 0.9 %; Eosinophils # 0.3 10^3/uL (0.0-0.8); Eosinophils % 2.8 %; Hematocrit 31.2 % (37.0-47.0); Hemoglobin 9.6 g/dL (11.5-15.3); Lymphocytes # 1.1 10^3/uL (0.8-4.8); Lymphocytes % 11.5 %; Mean Corpuscular HGB Conc 30.8 g/dL (30.0-36.0); Mean Corpuscular Volume 100.6 fL (81-99); Mean Platelet Volume 10.1 fL (7.4-10.4); Monocytes # 1.2 10^3/uL (0.2-0.9); Neutrophils # 6.88 10^3/uL (1.8-7.7); Neutrophils % 71.8 %; Nucleated Red Blood Cells % 0.4 %; Platelet Count 510 10^3/cmm (130-400); Red Cell Distribution Width 17.1 % (12.1-15.1); White Blood Count 9.6 10^3/uL (4.0-10.0)
[2020-09-11 04:30] LABS: Alanine Aminotransferase 27 U/L (0-33); Albumin Level 2.6 g/dL (3.5-5.2); Alkaline Phosphatase 113 IU/L (35-105); Anion Gap 8.6 (5-19); Aspartate Amino Transferase 17 U/L (0-32); Blood Urea Nitrogen 7 mg/dL (8-23); Calcium 8.5 mg/dL (8.5-10.5); Carbon Dioxide 34 mmol/L (22-29); Chloride 100 mmol/L (98-107); Globulin 3.6 g/dL (1.3-4.6); Glomerular Filtration Rate 62.5 mL/min (90-130); Glucose 95 mg/dL (65-115); Osmolality Calculated 286 mOsm/kg (285-295); Potassium 3.6 mmol/L (3.5-5.1); Sodium 139 mmol/L (136-145); Total Bilirubin 0.3 mg/dL (0.15-1.2); Total Protein 6.2 g/dL (6.6-8.7)
[2020-09-11] MEDS: isosorbide mononitrate ER 30 mg Tablet PO (06:18)
[2020-09-11] MEDS: metoprolol succinate ER (24 HR) 25 mg Tablet PO (06:18)
[2020-09-11] MEDS: lisinopril 5 mg Tablet PO (06:18)
[2020-09-11] MEDS: amiodarone 200 mg Tablet PO (06:18)
[2020-09-11] MEDS: ranolazine (12HR) 500 mg Tablet PO ×2 (06:18→19:21)
[2020-09-11] MEDS: potassium chloride ER 10 mEq Tablet PO ×3 (06:19→19:21)
[2020-09-11] MEDS: vancomycin 750 MG in sodium chloride 0.9% 250 ML 250 MG IV (07:09)
[2020-09-11] MEDS: FUROsemide 10 mg/mL SDV 4mL 40 MG IVP ×2 (10:11→22:54)
[2020-09-11] MEDS: levofloxacin-dextrose 5 % 750 MG/150 ML PREMIX 100 MG IV (10:12)
--- NOTE | 2020-09-11 12:02 | PM.PN ---
Subjective Subjective: Interval history: Patient was seen and examined today.H/R is better controlled though she continues to be in a.flutter.SOB has improved.continue to have good urine output.Currently she is net negative.3.9Ls.he continue to be A.Febrile..Her other Vitals and labs have been reviewed. Medications: Reviewed: Yes Vitals/I&O/Wt Last Vital Signs Temp 98.1 F 09/11/20 04:00 Pulse 97 09/11/20 09:18 Resp 16 09/11/20 09:18 BP 108/80 09/11/20 08:00 Pulse Ox 96 09/11/20 09:18 09/10/20 09/11/20 09/11/20 22:59 06:59 14:59 Intake Total 912.842 / 1912.842 200 / 2112.842 456.958 / 456.958 Output Total 300 / 1700 625 / 625 Balance 612.842 / 212.842 200 / 412.842 -168.042 / -168.042 Weight last 48 hrs Weight 66.291 kg Weight 66.457 g Weight 66.451 kg Physical Exam Const: COMMON NORMALS: patient oriented x3 HENMT: COMMON NORMALS: normocephalic and atraumatic HEAD & SCALP: normocephalic and atraumatic Chest: CHEST: Yes Symmetrical chest wall rise Resp: COMMON NORMALS: normal respiratory effort OTHER: diminished air entry more on rt. Cardio: COMMON NORMALS: Peripheral pulses 2+ throughout PERIPHERAL PULSES: Peripheral pulses 2+ throughout OTHER: Irregularly irregular rhythm, S1-S2 variable intensity, ejection systolic murmur in right second intercostal, pansystolic murmur in mitral area. GI: COMMON NORMALS: Normal to inspection, nondistended, normoactive bowel sounds present, Soft to palpation, non-tender, No hepatosplenomegaly present and no masses AUSCULTATION: Yes normoactive bowel sounds PALPATION: Yes Soft to palpation and Yes No hepatosplenomegaly present RECTAL EXAM: deferred Extremity: NARRATIVE EXTREMITY EXAM: 1+ Pitting edema present in bilateral lower extremity. Neuro: COMMON NORMALS: patient oriented x3 Urinary Catheter Management^: Conn: Cath Placed During This Visit: yes, but has since been removed by the nurse Reason for Continuing Indwelling Catheter: Accurate Measurement of Urinary Output in Critically Ill Patients Urinary Catheter Date of Insertion: 09/08/20 Urinary Catheter Time of Insertion: 15:30 Date Urinary Catheter Removed: 09/09/20 Time Urinary Catheter Discontinued: 08:45 Data : 09/11/20 03:30 09/11/20 03:30 Micro: Microbiology 09/10/20 09:36 MRSA Culture - Final Nose 09/08/20 11:15 Blood Culture - Preliminary Blood Coagulase negativ staphylococc A&P Assessment and plan (1) Atrial flutter: A. fib/flutter with RVR. Initially on amiodarone Drip.Stopped on 09/11 On warfarin at home.Currently INR is :3.5 Metoprolol succinate 25 mg p.o. daily Amiodarone 200 mg p.o. daily Status: Acute (2) Acute metabolic encephalopathy: Acute metabolic encephalopathy 2/2 hypoxic respiratory failure2/2 decompensated systolic heart failure/HAP:Resolved ABG: Is suggestive of hypoxic respiratory failure. CT chest abdomen and pelvis without contrast: Asymmetric bilateral airspace disease, with marked interval worsening in right-sided airspace disease. Newly developed small right pleural effusion with interval decrease in size of left pleural effusion. Multiple displaced left rib fractures again demonstrated, without significant interval healing. No acute visceral injury in the abdomen or pelvis Lactic acid normal Procalcitonin: 0.06 Blood culture:07/13 Cogulase negative staph. Likely contaminant MRSA PCR : Initially on BiPAP/currently switched to oxygen through nasal cannula. Lasix 40 mg IV every 12 hours daily Vancomycin : ( 09/08 -09/11 ) Zosyn : ( 09/08 - ) Levofloxacin : ( 09/08 -09/11 ) Status: Acute (3) Congestive heart failure: decompensated systolic heart failure Status: Acute (4) HCAP (healthcare-associated pneumonia): Status: Acute (5) Respiratory failure with hypoxia: Status: Acute (6) COPD (chronic obstructive pulmonary disease): Status: Acute (7) Ribs, multiple fractures: Status: Acute (8) Post-splenectomy: Status: Chronic (9) Diaphragm, rupture: Status: Chronic (10) Elevated troponin: Status: Acute Additional A&P Information Code Status:Full code DVT PPX: On lovenox Disposition :Home. Attestations Medical Necessity Statement*: Patient needs to be in hospital for the management of H.F/ PNA / A.Flutter. Coding Level of Care Code Acute Pumping Supervisor for Chg Fwd Diagnoses Atrial flutter I48.92 Acute metabolic encephalopathy G93.41 Congestive heart failure I50.9 HCAP (healthcare-associated pneumonia) J18.9 Respiratory failure with hypoxia J96.91 COPD (chronic obstructive pulmonary disease) J44.9 Ribs, multiple fractures S22.49XA Post-splenectomy Z90.81 Diaphragm, rupture K44.9 Elevated troponin R77.8
[2020-09-11] MEDS: oxyCODONE-APAP 5-325 mg Tablet 1 TAB PO ×2 (12:46→19:26)
[2020-09-11] MEDS: ondansetron 2 mg/ML SDV 2 mL 4 MG IVP (13:11)
--- NOTE | 2020-09-11 16:07 | PC.SOCIAL ---
IMM Update Pg.2 of IMM updated and reviewed with patient who verbalized understanding. Copy provided.
[2020-09-11] MEDS: citalopram 20 mg Tablet 10 MG PO (19:21)
[2020-09-11] MEDS: atorvastatin 40 mg Tablet 20 MG PO (19:21)
[2020-09-11] MEDS: TRAMadol 50 mg Tablet PO (23:07)
[2020-09-12] VITALS (21 sets, daily range): BP systolic 69–128; BP diastolic 55–94; PULSE 91–104; RESP 15–28; TEMP 36.6–37.1; O2SAT 94–100; BMI 25.0
[2020-09-12] MEDS: piperacillin-tazobactam 3.375 GM in sodium chloride 0.9% (plus) 50 ML IV ×3 (03:12→20:34)
[2020-09-12 05:50] LABS: Basophils # 0.1 10^3/uL (0.0-0.1); Basophils % 0.6 %; Eosinophils # 0.2 10^3/uL (0.0-0.8); Hematocrit 34.3 % (37.0-47.0); Hemoglobin 10.4 g/dL (11.5-15.3); Lymphocytes # 0.7 10^3/uL (0.8-4.8); Lymphocytes % 6.2 %; Mean Corpuscular HGB Conc 30.3 g/dL (30.0-36.0); Mean Corpuscular Volume 102.1 fL (81-99); Mean Platelet Volume 10.4 fL (7.4-10.4); Monocytes # 1.4 10^3/uL (0.2-0.9); Monocytes % 12.4 %; Neutrophils # 8.83 10^3/uL (1.8-7.7); Neutrophils % 78.1 %; Nucleated Red Blood Cells % 0 %; Platelet Count 580 10^3/cmm (130-400); Red Blood Count 3.36 10^6/uL (4.1-5.3); Red Cell Distribution Width 17.2 % (12.1-15.1); White Blood Count 11.3 10^3/uL (4.0-10.0)
[2020-09-12] MEDS: ranolazine (12HR) 500 mg Tablet PO ×2 (06:18→18:42)
[2020-09-12] MEDS: metoprolol succinate ER (24 HR) 25 mg Tablet PO (06:18)
[2020-09-12] MEDS: amiodarone 200 mg Tablet PO (06:18)
[2020-09-12] MEDS: lisinopril 5 mg Tablet PO (06:18)
[2020-09-12] MEDS: potassium chloride ER 10 mEq Tablet PO ×3 (06:18→18:41)
[2020-09-12] MEDS: isosorbide mononitrate ER 30 mg Tablet PO (06:18)
[2020-09-12 06:23] LABS: Anion Gap 13.6 (5-19); Blood Urea Nitrogen 9 mg/dL (8-23); Calcium 8.9 mg/dL (8.5-10.5); Carbon Dioxide 30 mmol/L (22-29); Chloride 96 mmol/L (98-107); Glomerular Filtration Rate 83.5 mL/min (90-130); Glucose 93 mg/dL (65-115); Magnesium 2.1 mg/dL (1.7-2.3); Osmolality Calculated 280 mOsm/kg (285-295); Potassium 3.6 mmol/L (3.5-5.1); Sodium 136 mmol/L (136-145)
[2020-09-12] MEDS: FUROsemide 10 mg/mL SDV 4mL 40 MG IVP ×2 (09:34→18:39)
[2020-09-12] MEDS: oxyCODONE-APAP 5-325 mg Tablet 1 TAB PO ×2 (11:26→18:40)
--- NOTE | 2020-09-12 13:34 | PM.PN ---
Subjective Subjective: Interval history: Patient was seen and examined today.H/R is better controlled though she continues to be in a.flutter.SOB has improved.continue to have good urine output.Currently she is net negative.3.8 Ls.he continue to be A.Febrile.Her other Vitals and labs have been reviewed. Medications: Reviewed: Yes Vitals/I&O/Wt Last Vital Signs Temp 97.9 F 09/12/20 07:00 Pulse 103 H 09/12/20 12:00 Resp 22 H 09/12/20 12:00 BP 103/69 09/12/20 12:00 Pulse Ox 95 09/12/20 12:00 09/11/20 09/12/20 09/12/20 22:59 06:59 14:59 Intake Total 720 / 1276.958 500 / 1776.958 300 / 300 Output Total 700 / 2625 350 / 2975 400 / 400 Balance 20 / -1348.042 150 / -1198.042 -100 / -100 Weight last 48 hrs Weight 66.203 kg Weight 66.291 kg Weight 66.457 g Physical Exam Const: COMMON NORMALS: patient oriented x3 HENMT: COMMON NORMALS: normocephalic and atraumatic HEAD & SCALP: normocephalic and atraumatic Chest: CHEST: Yes Symmetrical chest wall rise Resp: COMMON NORMALS: normal respiratory effort OTHER: diminished air entry more on rt. Cardio: COMMON NORMALS: Peripheral pulses 2+ throughout PERIPHERAL PULSES: Peripheral pulses 2+ throughout OTHER: Irregularly irregular rhythm, S1-S2 variable intensity, ejection systolic murmur in right second intercostal, pansystolic murmur in mitral area. GI: COMMON NORMALS: Normal to inspection, nondistended, normoactive bowel sounds present, Soft to palpation, non-tender, No hepatosplenomegaly present and no masses AUSCULTATION: Yes normoactive bowel sounds PALPATION: Yes Soft to palpation and Yes No hepatosplenomegaly present RECTAL EXAM: deferred Extremity: NARRATIVE EXTREMITY EXAM: 1+ Pitting edema present in bilateral lower extremity. Neuro: COMMON NORMALS: patient oriented x3 Urinary Catheter Management^: Conn: Cath Placed During This Visit: yes, but has since been removed by the nurse Reason for Continuing Indwelling Catheter: Accurate Measurement of Urinary Output in Critically Ill Patients Urinary Catheter Date of Insertion: 09/08/20 Urinary Catheter Time of Insertion: 15:30 Date Urinary Catheter Removed: 09/09/20 Time Urinary Catheter Discontinued: 08:45 Data : 09/12/20 03:30 09/12/20 03:30 Micro: Microbiology 09/10/20 09:36 MRSA Culture - Final Nose A&P Assessment and plan (1) Atrial flutter: A. fib/flutter with RVR. Initially on amiodarone Drip.Stopped on 09/11 On warfarin at home.Currently INR is :3.5 Metoprolol succinate 25 mg p.o. daily am Metoprolol succinate 12.5 Mg po daily in evening Amiodarone 200 mg p.o. daily Status: Acute (2) Acute metabolic encephalopathy: Acute metabolic encephalopathy 2/2 hypoxic respiratory failure2/2 decompensated systolic heart failure/HAP:Resolved ABG: Is suggestive of hypoxic respiratory failure. CT chest abdomen and pelvis without contrast: Asymmetric bilateral airspace disease, with marked interval worsening in right-sided airspace disease. Newly developed small right pleural effusion with interval decrease in size of left pleural effusion. Multiple displaced left rib fractures again demonstrated, without significant interval healing. No acute visceral injury in the abdomen or pelvis Lactic acid normal Procalcitonin: 0.06 Blood culture:07/13 Cogulase negative staph. Likely contaminant MRSA PCR : Initially on BiPAP/currently switched to oxygen through nasal cannula. Lasix 40 mg IV every 12 hours daily Vancomycin : ( 09/08 -09/11 ) Zosyn : ( 09/08 - ) Levofloxacin : ( 09/08 -09/11 ) Status: Acute (3) Congestive heart failure: decompensated systolic heart failure Status: Acute (4) HCAP (healthcare-associated pneumonia): Status: Acute (5) Respiratory failure with hypoxia: Status: Acute (6) COPD (chronic obstructive pulmonary disease): Status: Acute (7) Ribs, multiple fractures: Status: Acute (8) Post-splenectomy: Status: Chronic (9) Diaphragm, rupture: Status: Chronic (10) Elevated troponin: Status: Acute Additional A&P Information Code Status:Full code DVT PPX: On lovenox Disposition :Home. Attestations Medical Necessity Statement*: Patient needs to be in hospital for the management of PNA/AFIB.HF Coding Level of Care Code Acute Lasting Machine Operator Hand Method for Chg Fwd Exam Detailed Diagnoses Atrial flutter I48.92 Acute metabolic encephalopathy G93.41 Congestive heart failure I50.9 HCAP (healthcare-associated pneumonia) J18.9 Respiratory failure with hypoxia J96.91 COPD (chronic obstructive pulmonary disease) J44.9 Ribs, multiple fractures S22.49XA Post-splenectomy Z90.81 Diaphragm, rupture K44.9 Elevated troponin R77.8
--- NOTE | 2020-09-12 17:26 | PC.NURSE ---
received into room 112-2 from icu,at 1510.report received.pt is alert and oriented x 4.denies discomfort at this time.aflutter on monitor.oriented to room environment.instructed to notify staff for any sob,pain..or for any concerns at all.pt verb understanding of instructions.mild crepitus noted left anterior chest area.will cont to observe.
--- NOTE | 2020-09-12 18:21 | P.PN_ITS ---
Subjective Subjective: Interval history: Patient was seen and examined today.H/R is in low high 90s to low 100s. though she continues to be in a.flutter.SOB has improved.continue to have good urine output.Currently she is net negative.3.8 Ls.She continue to be A.Febrile.Her other Vitals and labs have been reviewed. Medications: Reviewed: Yes Vitals/I&O/Wt Last Vital Signs Temp 98.0 F 09/12/20 15:34 Pulse 95 09/12/20 15:34 Resp 16 09/12/20 15:34 BP 91/57 09/12/20 15:34 Pulse Ox 100 09/12/20 15:34 09/12/20 09/12/20 09/12/20 06:59 14:59 22:59 Intake Total 500 / 1776.958 300 / 300 120 / 420 Output Total 350 / 2975 400 / 400 Balance 150 / -1198.042 -100 / -100 120 / 20 Weight last 48 hrs Weight 66.203 kg Weight 66.291 kg Weight 66.457 g Physical Exam Const: COMMON NORMALS: patient oriented x3 HENMT: COMMON NORMALS: normocephalic and atraumatic HEAD & SCALP: normocephalic and atraumatic Chest: CHEST: Yes Symmetrical chest wall rise Resp: COMMON NORMALS: normal respiratory effort OTHER: diminished air entry more on rt. Cardio: COMMON NORMALS: Peripheral pulses 2+ throughout PERIPHERAL PULSES: Peripheral pulses 2+ throughout OTHER: Irregularly irregular rhythm, S1-S2 variable intensity, ejection systolic murmur in right second intercostal, pansystolic murmur in mitral area. GI: COMMON NORMALS: Normal to inspection, nondistended, normoactive bowel sounds present, Soft to palpation, non-tender, No hepatosplenomegaly present and no masses AUSCULTATION: Yes normoactive bowel sounds PALPATION: Yes Soft to palpation and Yes No hepatosplenomegaly present RECTAL EXAM: deferred Extremity: NARRATIVE EXTREMITY EXAM: 1+ Pitting edema present in bilateral lower extremity. Neuro: COMMON NORMALS: patient oriented x3 Urinary Catheter Management^: Conn: Cath Placed During This Visit: yes, but has since been removed by the nurse Reason for Continuing Indwelling Catheter: Accurate Measurement of Urinary Output in Critically Ill Patients Urinary Catheter Date of Insertion: 09/08/20 Urinary Catheter Time of Insertion: 15:30 Date Urinary Catheter Removed: 09/09/20 Time Urinary Catheter Discontinued: 08:45 Data : 09/12/20 03:30 09/12/20 03:30 A&P Assessment and plan (1) Atrial flutter: A. fib/flutter with RVR. Initially on amiodarone Drip.Stopped on 09/11 On warfarin at home.Currently INR is ;Elevated Metoprolol succinate 25 mg p.o. daily am Metoprolol succinate 12.5 Mg po daily in evening Amiodarone 200 mg p.o. daily Status: Acute (2) Acute metabolic encephalopathy: Acute metabolic encephalopathy 2/2 hypoxic respiratory failure2/2 decompensated systolic heart failure/HAP:Resolved ABG: Is suggestive of hypoxic respiratory failure. CT chest abdomen and pelvis without contrast: Asymmetric bilateral airspace disease, with marked interval worsening in right-sided airspace disease. Newly developed small right pleural effusion with interval decrease in size of left pleural effusion. Multiple displaced left rib fractures again demonstrated, without significant interval healing. No acute visceral injury in the abdomen or pelvis. Follow Am Xray Chest : Lactic acid normal Procalcitonin: 0.06 Blood culture:07/13 Cogulase negative staph. Likely contaminant MRSA PCR : Initially on BiPAP/currently switched to oxygen through nasal cannula. Lasix 40 mg IV every 12 hours daily Vancomycin : ( 09/08 -09/11 ) Zosyn : ( 09/08 - ) Levofloxacin : ( 09/08 -09/11 ) Status: Acute (3) Congestive heart failure: decompensated systolic heart failure Status: Acute (4) HCAP (healthcare-associated pneumonia): Status: Acute (5) Respiratory failure with hypoxia: Status: Acute (6) COPD (chronic obstructive pulmonary disease): Status: Acute (7) Ribs, multiple fractures: Status: Acute (8) Post-splenectomy: Status: Chronic (9) Diaphragm, rupture: Status: Chronic (10) Elevated troponin: Status: Acute Additional A&P Information Code Status:Full code DVT PPX: On lovenox Disposition :Home. Attestations Medical Necessity Statement*: Patient needs to be in hospital for the man agement of H/F,PNA,A.Flutter, Coding Level of Care Code Acute Bulk Pigment Reducer for [facility] Diagnoses Atrial flutter I48.92 Acute metabolic encephalopathy G93.41 Congestive heart failure I50.9 HCAP (healthcare-associated pneumonia) J18.9 Respiratory failure with hypoxia J96.91 COPD (chronic obstructive pulmonary disease) J44.9 Ribs, multiple fractures S22.49XA Post-splenectomy Z90.81 Diaphragm, rupture K44.9 Elevated troponin R77.8
--- NOTE | 2020-09-12 18:39 | ECG_ITS ---
[facility] Test Date: 2020-09-12 Pat Name: Clementina Mcghee Department: Room: 112 Gender: Female Hydrology Technician: : 1955 Requested By: Adiel Allison Order Number: [id number] Reading MD: LINDA CAI Measurements Intervals [place]cock Rate: 102 P: 255 ID: [id number] QRS: -16 QRSD: 194 T: 101 QT: 440 QTc: 573 Interpretive Statements SINUS TACHCARDIA LEFT BUNDLE BRANCH BLOCK [120+ ms QRS DURATION, 80+ ms Q/S IN V1/V2, 85+ ms R IN I/aVL/V5/V6] Compared to ECG 09/08/2020 10:46:06 THERE IS NO SIGNIFICANT DIFFERENECE Electronically Signed On 09-13-2020 17:47:07 X RAY EQUIPMENT TESTER by LINDA CAI [id number] f
[2020-09-12] MEDS: atorvastatin 40 mg Tablet 20 MG PO (18:40)
[2020-09-12] MEDS: citalopram 20 mg Tablet 10 MG PO (18:42)
[2020-09-12] MEDS: ondansetron 2 mg/ML SDV 2 mL 4 MG IVP (18:45)
--- NOTE | 2020-09-12 19:44 | PC.NURSE ---
dr briceno notified about pt's bp at 1755.(87/51 with map of 63).iv lasix,metoprolol due at 1800...and...pt requesting pain medication.dr briceno ordered to give lasix and pain med,but hold metoprolol for 1 hour..and he will reassess at that time.lieutenant shift supervisor rn made aware of this.
--- NOTE | 2020-09-12 20:14 | PC.NURSE ---
Provider notified of patient current BP and pulse rate. Order for hold of metoprolol tonight and see how rate and rhythm hold up
[2020-09-12] MEDS: TRAMadol 50 mg Tablet PO (20:33)
[2020-09-13] VITALS (15 sets, daily range): BP systolic 92–115; BP diastolic 56–73; PULSE 82–105; RESP 16–23; TEMP 36.6–37.2; O2SAT 91–95
[2020-09-13] MEDS: oxyCODONE-APAP 5-325 mg Tablet 1 TAB PO ×4 (00:22→20:05)
[2020-09-13] MEDS: trazodone 50 mg Tablet 25 MG PO (00:22)
[2020-09-13] MEDS: cyclobenzaprine 10 mg Tablet PO ×3 (00:22→20:03)
[2020-09-13] MEDS: piperacillin-tazobactam 3.375 GM in sodium chloride 0.9% (plus) 50 ML IV ×3 (05:03→20:05)
[2020-09-13] MEDS: FUROsemide 10 mg/mL SDV 4mL 40 MG IVP ×2 (05:04→14:14)
[2020-09-13 05:32] LABS: Basophils # 0.1 10^3/uL (0.0-0.1); Basophils % 0.9 %; Eosinophils # 0.5 10^3/uL (0.0-0.8); Eosinophils % 4.6 %; Hematocrit 33.1 % (37.0-47.0); Hemoglobin 10.1 g/dL (11.5-15.3); Lymphocytes % 10.3 %; Mean Corpuscular HGB Conc 30.5 g/dL (30.0-36.0); Mean Corpuscular Hemoglobin 30.9 pg (28.0-34.0); Mean Corpuscular Volume 101.2 fL (81-99); Mean Platelet Volume 9.9 fL (7.4-10.4); Monocytes # 1.3 10^3/uL (0.2-0.9); Monocytes % 12.6 %; Neutrophils # 7.04 10^3/uL (1.8-7.7); Neutrophils % 70.7 %; Nucleated Red Blood Cells % 0 %; Platelet Count 586 10^3/cmm (130-400); Red Blood Count 3.27 10^6/uL (4.1-5.3); Red Cell Distribution Width 17.2 % (12.1-15.1)
[2020-09-13 06:00] LABS: Anion Gap 9.6 (5-19); Blood Urea Nitrogen 10 mg/dL (8-23); Calcium 9.2 mg/dL (8.5-10.5); Carbon Dioxide 32 mmol/L (22-29); Chloride 99 mmol/L (98-107); Glomerular Filtration Rate 62.5 mL/min (90-130); Glucose 90 mg/dL (65-115); Magnesium 1.9 mg/dL (1.7-2.3); Osmolality Calculated 283 mOsm/kg (285-295); Potassium 3.6 mmol/L (3.5-5.1); Sodium 137 mmol/L (136-145)
--- NOTE | 2020-09-13 06:00 | XRR_ITS ---
PROCEDURE INFORMATION: Exam: XR Chest Exam date and time: 09/13/2020 12:00 AM Age: 65 years old Clinical indication: Shortness of breath; Prior surgery; Additional info: Pna TECHNIQUE: Imaging protocol: XR of the chest Views: 1 view. COMPARISON: CT chest abd pel w con* 09/08/2020 3:00 PM FINDINGS: Tubes, catheters and devices: Termination of central venous catheter in the right atrium. Left subclavian stent. Lungs: COPD, interstitial disease, and asymmetric bilateral airspace disease. Pleural spaces: Left pleural effusion obscuring the left hemidiaphragm. Apical pleural thickening. Heart/Mediastinum: Mitral valve replacement. No cardiomegaly. Bones/joints: Osteopenia and degenerative change. XR/XR chest 1V portable [id number] IMPRESSION: 1. COPD, interstitial disease, and asymmetric bilateral airspace disease. 2. Left pleural effusion obscuring the left hemidiaphragm.
[2020-09-13] MEDS: metoprolol succinate ER (24 HR) 25 mg Tablet PO (06:07)
[2020-09-13] MEDS: isosorbide mononitrate ER 30 mg Tablet PO (06:07)
[2020-09-13] MEDS: ranolazine (12HR) 500 mg Tablet PO ×2 (06:07→20:03)
[2020-09-13] MEDS: amiodarone 200 mg Tablet PO (06:07)
[2020-09-13] MEDS: lisinopril 5 mg Tablet PO (06:08)
[2020-09-13] MEDS: potassium chloride ER 10 mEq Tablet PO ×3 (08:30→20:04)
[2020-09-13] MEDS: metoprolol succinate ER (24 HR) 25 mg Tablet 12.5 MG PO ×2 (08:30→20:04)
--- NOTE | 2020-09-13 09:07 | PC.SOCIAL ---
IMM Update Pg.2 of IMM Updated and reviewed with patient who verbalized understanding. Copy provided.
--- NOTE | 2020-09-13 13:10 | P.PN_ITS ---
Subjective Subjective: Interval history: Patient was seen and examined today.Deny any SOB.Had bad sleep last night. H/R is better controlled.Continue to be Net Negative ( - 3.1 Ls). Am xray chest : has shown improvement of infiltrates. She continues to remain afebrile.Her other vitals and labs have been reviewed. Medications: Reviewed: Yes Vitals/I&O/Wt Last Vital Signs Temp 99.0 F 09/13/20 10:57 Pulse 104 H 09/13/20 10:57 Resp 18 09/13/20 13:08 BP 96/59 09/13/20 10:57 Pulse Ox 94 09/13/20 10:57 09/12/20 09/13/20 09/13/20 22:59 06:59 14:59 Intake Total 170 / 470 50.000 / 520.000 360 / 360 Balance 170 / 70 50.000 / 120.000 360 / 360 Weight last 48 hrs Weight 63.73 kg Weight 66.203 kg Physical Exam Const: COMMON NORMALS: patient oriented x3 HENMT: COMMON NORMALS: normocephalic and atraumatic HEAD & SCALP: normocephalic and atraumatic Chest: CHEST: Yes Symmetrical chest wall rise Resp: COMMON NORMALS: normal respiratory effort OTHER: diminished air entry more on rt. Cardio: COMMON NORMALS: Peripheral pulses 2+ throughout PERIPHERAL PULSES: Peripheral pulses 2+ throughout OTHER: Irregularly irregular rhythm, S1-S2 variable intensity, ejection systolic murmur in right second intercostal, pansystolic murmur in mitral area. GI: COMMON NORMALS: Normal to inspection, nondistended, normoactive bowel sounds present, Soft to palpation, non-tender, No hepatosplenomegaly present and no masses AUSCULTATION: Yes normoactive bowel sounds PALPATION: Yes Soft to palpation and Yes No hepatosplenomegaly present RECTAL EXAM: deferred Extremity: NARRATIVE EXTREMITY EXAM: 1+ Pitting edema present in bilateral lower extremity. Neuro: COMMON NORMALS: patient oriented x3 Urinary Catheter Management^: Conn: Cath Placed During This Visit: yes, but has since been removed by the nurse Reason for Continuing Indwelling Catheter: Accurate Measurement of Urinary Output in Critically Ill Patients Urinary Catheter Date of Insertion: 09/08/20 Urinary Catheter Time of Insertion: 15:30 Date Urinary Catheter Removed: 03/03/21 Time Urinary Catheter Discontinued: 08:45 Data : 09/13/20 04:43 09/13/20 04:43 Micro: Microbiology 09/08/20 11:27 Blood Culture - Final Blood NO GROWTH AFTER 5 DAYS A&P Assessment and plan (1) Atrial flutter: A. fib/flutter with RVR. Initially on amiodarone Drip.Stopped on 09/11 On warfarin at home.Currently INR is ;Elevated Metoprolol succinate 25 mg p.o. daily am Metoprolol succinate 12.5 Mg po daily in evening Amiodarone 200 mg p.o. daily Status: Acute (2) Acute metabolic encephalopathy: Acute metabolic encephalopathy 2/2 hypoxic respiratory failure2/2 decompensated systolic heart failure/HAP:Resolved ABG: Is suggestive of hypoxic respiratory failure. CT chest abdomen and pelvis without contrast: Asymmetric bilateral airspace disease, with marked interval worsening in right-sided airspace disease. Newly developed small right pleural effusion with interval decrease in size of left pleural effusion. Multiple displaced left rib fractures again demonstrated, without significant interval healing. No acute visceral injury in the abdomen or pelvis. Xray Chest :( 09/13 ): COPD, interstitial disease, and asymmetric bilateral airspace disease. Left pleural effusion obscuring the left hemidiaphragm. Lactic acid normal Procalcitonin: 0.06 Blood culture:07/13 Cogulase negative staph. Likely contaminant MRSA PCR : Initially on BiPAP/currently switched to oxygen through nasal cannula.She is at her baseline oxygen requirement ( 2ls at home ) Lasix 40 mg IV every 12 hours daily Vancomycin : ( 09/08 -09/11 ) Zosyn : ( 09/08 - ) Levofloxacin : ( 09/08 -09/11 ) Status: Acute (3) Congestive heart failure: decompensated systolic heart failure Status: Acute (4) HCAP (healthcare-associated pneumonia): Status: Acute (5) Respiratory failure with hypoxia: Status: Acute (6) COPD (chronic obstructive pulmonary disease): Status: Acute (7) Ribs, multiple fractures: Status: Acute (8) Post-splenectomy: Status: Chronic (9) Diaphragm, rupture: Status: Chronic (10) Elevated troponin: Status: Acute Additional A&P Information Code Status:Full code DVT PPX: On lovenox Disposition :Home. Attestations Medical Necessity Statement*: Patient needs to be in hospital for the management of HAP.HF/A.FIB and the need for safe placement. Coding Level of Care Code Acute Ornament Maker Hand for Chg Fwd Diagnoses Atrial flutter I48.92 Acute metabolic encephalopathy G93.41 Congestive heart failure I50.9 HCAP (healthcare-associated pneumonia) J18.9 Respiratory failure with hypoxia J96.91 COPD (chronic obstructive pulmonary disease) J44.9 Ribs, multiple fractures S22.49XA Post-splenectomy Z90.81 Diaphragm, rupture K44.9 Elevated troponin R77.8
[2020-09-13] MEDS: atorvastatin 40 mg Tablet 20 MG PO (20:03)
[2020-09-13] MEDS: TRAMadol 50 mg Tablet PO (20:03)
[2020-09-13] MEDS: citalopram 20 mg Tablet 10 MG PO (20:04)
[2020-09-14] VITALS (15 sets, daily range): BP systolic 93–111; BP diastolic 56–68; PULSE 66–94; RESP 11–20; TEMP 36.4–36.8; O2SAT 91–96
[2020-09-14] MEDS: oxyCODONE-APAP 5-325 mg Tablet 1 TAB PO ×4 (02:42→20:37)
[2020-09-14] MEDS: piperacillin-tazobactam 3.375 GM in sodium chloride 0.9% (plus) 50 ML IV ×2 (04:28→12:44)
[2020-09-14] MEDS: potassium chloride ER 10 mEq Tablet PO ×3 (06:22→18:12)
[2020-09-14] MEDS: isosorbide mononitrate ER 30 mg Tablet PO (06:22)
[2020-09-14] MEDS: ranolazine (12HR) 500 mg Tablet PO ×2 (06:22→18:12)
[2020-09-14] MEDS: metoprolol succinate ER (24 HR) 25 mg Tablet PO (06:22)
[2020-09-14] MEDS: amiodarone 200 mg Tablet PO (06:22)
[2020-09-14] MEDS: lisinopril 5 mg Tablet PO (06:23)
[2020-09-14] MEDS: FUROsemide 10 mg/mL SDV 4mL 40 MG IVP ×2 (06:23→18:11)
[2020-09-14 06:41] LABS: Basophils # 0.1 10^3/uL (0.0-0.1); Basophils % 1.1 %; Eosinophils # 0.5 10^3/uL (0.0-0.8); Eosinophils % 4.7 %; Hemoglobin 10.2 g/dL (11.5-15.3); Lymphocytes # 0.8 10^3/uL (0.8-4.8); Lymphocytes % 8.6 %; Mean Corpuscular HGB Conc 30.9 g/dL (30.0-36.0); Mean Corpuscular Volume 100.3 fL (81-99); Mean Platelet Volume 9.8 fL (7.4-10.4); Monocytes # 1.2 10^3/uL (0.2-0.9); Monocytes % 12.4 %; Neutrophils # 7.05 10^3/uL (1.8-7.7); Neutrophils % 72.7 %; Nucleated Red Blood Cells % 0 %; Platelet Count 603 10^3/cmm (130-400); Red Blood Count 3.29 10^6/uL (4.1-5.3); White Blood Count 9.7 10^3/uL (4.0-10.0)
[2020-09-14 06:52] LABS: INR 1.64 (0.8-1.2)
[2020-09-14 06:58] LABS: Anion Gap 6.8 (5-19); Blood Urea Nitrogen 11 mg/dL (8-23); Calcium 8.9 mg/dL (8.5-10.5); Carbon Dioxide 30 mmol/L (22-29); Chloride 94 mmol/L (98-107); Glomerular Filtration Rate 71.5 mL/min (90-130); Glucose 90 mg/dL (65-115); Osmolality Calculated 263 mOsm/kg (285-295); Potassium 3.8 mmol/L (3.5-5.1); Sodium 127 mmol/L (136-145)
[2020-09-14] MEDS: citalopram 20 mg Tablet 10 MG PO (18:12)
[2020-09-14] MEDS: metoprolol succinate ER (24 HR) 25 mg Tablet 12.5 MG PO (18:12)
[2020-09-14] MEDS: atorvastatin 40 mg Tablet 20 MG PO (18:13)
--- NOTE | 2020-09-14 18:14 | PM.PN ---
Subjective Subjective: Interval history: Patient reports feeling improved, no current complaints at this time except for mild abdominal pain at the site of her staple line. Currently saturating well on room air. Rate is well controlled. 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 fib/flutter with RVR. Initially on amiodarone Drip.Stopped on 09/11 On warfarin at home.Currently INR is ;Elevated, unclear if Coumadin was resumed after her recent surgery for hemothorax, asked son to bring in discharge summary from recent hospitalization. Metoprolol succinate 25 mg p.o. daily am Metoprolol succinate 12.5 Mg po daily in evening Amiodarone 200 mg p.o. daily Status: Acute (2) Acute metabolic encephalopathy: Acute metabolic encephalopathy 2/2 hypoxic respiratory failure2/2 decompensated systolic heart failure/HAP:Resolved, discontinue Zosyn CT chest abdomen and pelvis without contrast: Asymmetric bilateral airspace disease, with marked interval worsening in right-sided airspace disease. Newly developed small right pleural effusion with interval decrease in size of left pleural effusion. Multiple displaced left rib fractures again demonstrated, without significant interval healing. Blood culture:07/13 Cogulase negative staph. Likely contaminant Initially on BiPAP/currently switched to oxygen through nasal cannula.She is at her baseline oxygen requirement ( 2ls at home ) Lasix 40 mg IV every 12 hours daily, changed to 40 mg p.o. twice daily Status: Acute (3) Congestive heart failure: decompensated systolic heart failure, change IV to oral diuretics Status: Acute (4) HCAP (healthcare-associated pneumonia): Currently treated with Zosyn, vancomycin and levofloxacin, discontinue all antibiotics today. 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 Attestations Medical Necessity Statement*: Change IV to oral diuretics, monitor for clinical response, likely discharge in the upcoming 24 to 48 hours. Coding Level of Care Code Acute Underwater Photographer for [facility] Fwd Diagnoses Atrial flutter I48.92 Acute metabolic encephalopathy G93.41 Congestive heart failure I50.9 HCAP (healthcare-associated pneumonia) J18.9 Respiratory failure with hypoxia J96.91 COPD (chronic obstructive pulmonary disease) J44.9 Ribs, multiple fractures S22.49XA Post-splenectomy Z90.81 Diaphragm, rupture K44.9 Elevated troponin R77.8
--- NOTE | 2020-09-14 20:10 | PC.NURSE ---
Patient has no complaints at this time. Will monitor.
--- NOTE | 2020-09-14 21:15 | PC.NURSE ---
Patient is currently resting with eyes closed.
[2020-09-15] VITALS (9 sets, daily range): BP systolic 97–119; BP diastolic 52–73; PULSE 65–75; RESP 13–19; TEMP 36.3–37; O2SAT 90–95
--- NOTE | 2020-09-15 01:02 | PC.NURSE ---
Dr. Nixon notified of patient currently not having any medication as VTE prohylaxis and Lovenox is on hold.
[2020-09-15 04:59] LABS: Basophils # 0.1 10^3/uL (0.0-0.1); Basophils % 1.1 %; Eosinophils # 0.4 10^3/uL (0.0-0.8); Eosinophils % 4.9 %; Hemoglobin 10.6 g/dL (11.5-15.3); Lymphocytes # 1.2 10^3/uL (0.8-4.8); Lymphocytes % 13.1 %; Mean Corpuscular HGB Conc 30.3 g/dL (30.0-36.0); Mean Corpuscular Hemoglobin 30.8 pg (28.0-34.0); Mean Corpuscular Volume 101.7 fL (81-99); Mean Platelet Volume 9.7 fL (7.4-10.4); Monocytes # 1.2 10^3/uL (0.2-0.9); Monocytes % 13.6 %; Neutrophils # 5.93 10^3/uL (1.8-7.7); Neutrophils % 66.7 %; Nucleated Red Blood Cells % 0 %; Platelet Count 599 10^3/cmm (130-400); Red Blood Count 3.44 10^6/uL (4.1-5.3); Red Cell Distribution Width 17.4 % (12.1-15.1); White Blood Count 8.9 10^3/uL (4.0-10.0)
[2020-09-15 05:14] LABS: INR 1.29 (0.8-1.2)
[2020-09-15 05:28] LABS: Alanine Aminotransferase 15 U/L (0-33); Albumin Level 2.9 g/dL (3.5-5.2); Alkaline Phosphatase 105 IU/L (35-105); Anion Gap 12.3 (5-19); Aspartate Amino Transferase 15 U/L (0-32); Blood Urea Nitrogen 12 mg/dL (8-23); Calcium 8.9 mg/dL (8.5-10.5); Carbon Dioxide 31 mmol/L (22-29); Chloride 98 mmol/L (98-107); Globulin 4.1 g/dL (1.3-4.6); Glomerular Filtration Rate 71.5 mL/min (90-130); Glucose 96 mg/dL (65-115); Osmolality Calculated 284 mOsm/kg (285-295); Potassium 4.3 mmol/L (3.5-5.1); Sodium 137 mmol/L (136-145); Total Bilirubin 0.3 mg/dL (0.15-1.2)
[2020-09-15] MEDS: isosorbide mononitrate ER 30 mg Tablet PO (05:54)
[2020-09-15] MEDS: ranolazine (12HR) 500 mg Tablet PO (05:54)
[2020-09-15] MEDS: potassium chloride ER 10 mEq Tablet PO (05:54)
[2020-09-15] MEDS: metoprolol succinate ER (24 HR) 25 mg Tablet PO (05:54)
[2020-09-15] MEDS: amiodarone 200 mg Tablet PO (05:54)
[2020-09-15] MEDS: oxyCODONE-APAP 5-325 mg Tablet 1 TAB PO (05:54)
[2020-09-15] MEDS: lisinopril 5 mg Tablet PO (05:54)
[2020-09-15] MEDS: FUROsemide 40 mg Tablet PO (08:18)
--- NOTE | 2020-09-15 10:38 | PM.DCS ---
Discharge Providers Date of Admission: 09/08/20 17:15 Date of Discharge: September 15, 2020 Attending Provider at Admission: Adiel Allison MD Attending Provider at Discharge: Shauna Diggs MD Primary Care Provider: JUSTIN Mccollum Diagnoses at Discharge Discharge Diagnosis (1) Atrial flutter: Status: Acute (2) Acute metabolic encephalopathy: Status: Acute (3) Congestive heart failure: Status: Acute (4) HCAP (healthcare-associated pneumonia): Status: Acute (5) Respiratory failure with hypoxia: Status: Acute (6) COPD (chronic obstructive pulmonary disease): Status: Acute (7) Ribs, multiple fractures: Status: Acute (8) Post-splenectomy: Status: Chronic (9) Diaphragm, rupture: Status: Chronic (10) Elevated troponin: Status: Acute Reason for Visit Reason for Visit: Abd pain Hospital Course Hospital Course 65 year old female with PMH of A.fib, mitral valve repair, chronic diastolic heart failure, COPD, history of mechanical fall in early August resulting in rib fractures, return to the hospital on 27 August with findings of a ruptured diaphragm, splenic hematoma and hemothorax which necessitated transfer to [facility] where she underwent splenectomy and repair of diaphragmatic rupture. [place] [facility], 2 days after discharge from [facility] after being found to have worsening mentation found to have decompensated heart failure, A. fib with RVR and healthcare associated pneumonia. She was managed with IV diuresis, BiPAP, broad-spectrum IV antibiotics including Zosyn, vancomycin and levofloxacin. CT of her chest abdomen and pelvis showed asymmetric bilateral airspace disease with marked interval worsening in the right side airspace disease and a newly developed small right pleural effusion. Multiple rib fractures were again noted. For A. fib with RVR she was initially placed on an amiodarone drip, now has been transitioned to p.o. amiodarone. Metoprolol increased to 25 mg p.o. in the morning and 12.5 mg p.o. in the evening. Her heart rate is currently well controlled at the time of discharge. Respiratory status is much improved, she is saturating 93% on room air. Blood culture resulted 1 out of 4 with coag negative staph, likely to be contaminants. We have confirmed with her discharge summary from [facility] that she has been resumed on her Coumadin. Earlier in her admission, her INR until September 11 was at 3.5., Therefore anticoagulation was on hold, on day of discharge it is at 1.29, warfarin has been resumed at 3 mg p.o. daily. Instructed to check her INR daily with the machine she has at home. Follow-up arranged with Dr. Rizo later this week. Also instructed to follow-up with her surgeon at [facility] tomorrow as already scheduled per her discharge summary. She is afebrile, hemodynamically stable at time of discharge. 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 Urinary Catheter Management^: Conn: Cath Placed During This Visit: yes, but has since been removed by the nurse Reason for Continuing Indwelling Catheter: Accurate Measurement of Urinary Output in Critically Ill Patients Urinary Catheter Date of Insertion: 09/08/20 Urinary Catheter Time of Insertion: 15:30 Date Urinary Catheter Removed: 09/09/20 Time Urinary Catheter Discontinued: 08:45 Discharge Data Data Completed and Pending: Completed Studies During Hospitalization Category Date Time Status CT chest abd pel w con* Stat Cat Scan 09/08/20 12:04 Completed XR chest 1V ricki ble [id number] Routine Exams 09/13/20 06:00 Completed XR chest 1V ricki ble [id number] Stat Exams 09/08/20 10:31 Completed Labs from last 24 hours 09/15/20 09/15/20 09/15/20 04:26 04:26 04:26 WBC 8.9 RBC 3.44 L Hgb 10.6 L Hct 35.0 L MCV 101.7 H MCH 30.8 MCHC 30.3 RDW 17.4 H Plt Count 599 H MPV 9.7 Neut % (Auto) 66.7 Lymph % (Auto) 13.1 Adams % (Auto) 13.6 Eos % (Auto) 4.9 Baso % (Auto) 1.1 Neut # (Auto) 5.93 Lymph # (Auto) 1.2 Adams # (Auto) 1.2 H Eos # (Auto) 0.4 Baso # (Auto) 0.1 Nucleated RBC % (a uto) 0 Nucleated RBCs # 0.0 PT 16.50 H INR 1.29 H Sodium 137 Potassium 4.3 Chloride 98 Carbon Dioxide 31 H Anion Gap 12.3 BUN 12 Creatinine 0.8 GFR Calculation 71.5 L Glucose 96 Calculated Osmolal ity 284 L Calcium 8.9 Total Bilirubin 0.3 AST 15 ALT 15 Alkaline Phosphata se 105 Total Protein 7.0 Albumin 2.9 L Globulin 4.1 Vitals: Last Vital Signs Temp 98.6 F 09/15/20 07:35 Pulse 75 09/15/20 08:13 Resp 18 09/15/20 08:13 BP 97/52 09/15/20 07:35 Pulse Ox 93 09/15/20 08:13 Discharge Plan Discharge Patient Disposition: Home Condition: Stable Prescriptions: New metoprolol succinate 25 mg Tablet Extended Release 24 Hr 12.5 mg PO DAILY@1900 30 Days Qty: 30 RF: 0 Continued ascorbate calcium (vitamin C) 500 mg tablet 1 gm PO DAILY RF: 0 cyclobenzaprine 10 mg tablet 10 mg PO TID PRN (Reason: muscle spasm) Qty: 30 RF: 0 tramadol 50 mg tablet 50 mg PO TID PRN (Reason: pain) Qty: 30 RF: 0 nitroglycerin 0.4 mg tablet, sublingual 0.4 mg SUBLINGUAL Q5M PRN (Reason: chest pain) Qty: 30 RF: 0 prednisone 1 mg tablet See Rx Instructions PO DAILY Qty: 200 RF: 1 (DME) MD INR See Rx Instructions .Route .MEDSUPPLY Qty: 1 RF: 0 ranolazine 500 mg tablet extended release 12 hr 500 mg PO Q12H Qty: 180 RF: 1 Spiriva Respimat 2.5 mcg/actuation mist See Rx Instructions .ROUTE .COMPLEX Qty: 4 RF: 5 isosorbide mononitrate 30 mg tablet extended release 24 hr 30 mg PO DAILY@07 Qty: 90 RF: 0 potassium chloride 10 mEq Tablet Extended Release 10 meq PO TID@07,12,19 RF: 0 melatonin 10 mg Tablet 10 mg PO BEDTIME@2200 PRN (Reason: Sleep) RF: 0 Dayvigo 5 mg tablet 5 mg PO BEDTIME@2200 RF: 0 hydroxychloroquine 200 mg tablet 200 mg PO BID@0700,1900 RF: 0 zolpidem 10 mg Tablet 10 mg PO BEDTIME@2200 RF: 0 mupirocin 2 % ointment 1 applic topical TID@,, RF: 0 warfarin 3 mg Tablet 3 mg PO DAILY@ RF: 0 albuterol sulfate [ProAir HFA] 90 mcg/actuation Hfa Aerosol Inhaler 2 puff INHALATION Q4H PRN (Reason: Shortness Of Breath) RF: 0 amiodarone [Pacerone] 200 mg tablet 200 mg PO DAILY@07 RF: 0 citalopram 10 mg tablet 10 mg PO DAILY@ RF: 0 simvastatin 40 mg tablet 40 mg PO DAILY@ RF: 0 lisinopril 10 mg tablet 5 mg PO DAILY@07 RF: 0 metoprolol succinate 25 mg tablet extended release 24 hr 25 mg PO DAILY@ RF: 0 oxycodone-acetaminophen 5-325 mg tablet 1 tab PO Q8H PRN (Reason: Pain) RF: 0 Changed furosemide 40 mg tablet 40 mg PO BID Qty: 0 RF: 0 Discontinued prednisone 5 mg tablet See Rx Instructions PO DAILY Qty: 90 RF: 1 ibuprofen 200 mg Tablet 200 - 400 mg PO Q6H PRN (Reason: Pain) RF: 0 Discharge Orders: Discharge Order (Routine); Ordered 09/15/20 Ordered By: Shauna Diggs Referrals: Adelaida Rizo MD [Physician] - (Please follow-up with Dr. Rizo on September 16 at 3:30P.M. If have any questions or need to reschedule. Please call ) Abimbola Chatterjee FNP [Primary Care Provider] - 1 week (Please follow-up with Abimbola Chatterjee on September 22 at 10:40A.M. If you have any questions or need to reschedule. Please call ) Discharge Diet: Cardiac Discharge Activity: Resume usual activity Patient Instructions: Metoprolol (By mouth), Atrial Flutter (DC), CHF Stoplight, COPD Stoplight Activity Restrictions/Additional Instructions: check INR daily until follow up with Dr. Rizo, call cardiology office if INR greater than 3.5 or less than 2. Follow up with your surgeon in [place] on 09/16 as already scheduled per your discharge summary from [facility]. Discharge Attestations Time Spent in Discharge Care*: greater than 30 min Specific Discharge Activities: educating patient, discussing with spring encaser/social workers/dc planners and documenting/other paperwork Status at Discharge: Cognitive status at discharge: cognitively intact, Behavioral status at discharge: cooperative, Quality Metrics Clinical Quality Measures During this hospital stay, did patient experience: None Coding Level of Care Code Acute Professor Of Communication for g Fwd Diagnoses Atrial flutter I48.92 Acute metabolic encephalopathy G93.41 Congestive heart failure I50.9 HCAP (healthcare-associated pneumonia) J18.9 Respiratory failure with hypoxia J96.91 COPD (chronic obstructive pulmonary disease) J44.9 Ribs, multiple fractures S22.49XA Post-splenectomy Z90.81 Diaphragm, rupture K44.9 Elevated troponin R77.8
--- NOTE | 2020-09-15 11:19 | DCPLANNER ---
IMM completed 09/15/20 @ 1010. Copy of rights given to pt.
--- NOTE | 2020-09-15 14:36 | PC.NURSE ---
DISCHARGE DISCHARGE INSTRUCTIONS EXPLAINED TO PATIENT WITH NOTIFICATION OF FOLLOW-UP APPOINTMENTS. PATIENT VERBALIZED UNDERSTANDING. PATIENT IS ALERT AND ORIENTED X4, HAS NO COMPLAINTS AT THIS TIME. PATIENT TAKEN VIA WHEELCHAIR TO [facility] WAITING OUTSIDE.
== END 2020-09-15 14:26 | disposition home or self-care (01) | DRG 291 ==
LOC: ER 16:29 → ICU 18:57 → CSU 09-12 14:59
PROVIDERS: Physician Assistant; Admitting Provider Internal Medicine; Emergency Provider Family Medicine; PCP Nurse Practitioner Family; Visit Provider Student in an Organized Health Care Education/Training Program
DX: I11.0 Hypertensive heart disease with heart failure (principal); G93.41 Metabolic encephalopathy; J96.91 Respiratory failure, unspecified with hypoxia; J18.9 Pneumonia, unspecified organism; I48.92 Unspecified atrial flutter; I50.33 Acute on chronic diastolic (congestive) heart failure; I48.91 Unspecified atrial fibrillation; J43.9 Emphysema, unspecified; Z90.81 Acquired absence of spleen; Z79.01 Long term (current) use of anticoagulants; I25.10 Atherosclerotic heart disease of native coronary artery without angina pectoris; Z98.61 Coronary angioplasty status; F32.9 Major depressive disorder, single episode, unspecified; E78.5 Hyperlipidemia, unspecified; M81.0 Age-related osteoporosis without current pathological fracture; I73.9 Peripheral vascular disease, unspecified; F17.210 Nicotine dependence, cigarettes, uncomplicated; S22.42XG Multiple fractures of ribs, left side, subsequent encounter for fracture with delayed healing; X58.XXXD Exposure to other specified factors, subsequent encounter; Y95 Nosocomial condition; Z79.891 Long term (current) use of opiate analgesic; Z79.51 Long term (current) use of inhaled steroids
CPT/HCPCS: 36415; 36592; 36600; 51702; 71045; 71260; 74177; 80048; 80051; 80053; 80202; 81001; 81003; 82330; 82805; 83605; 83690; 83735; 83880; 84145; 84443; 85025; 85610; 87040; 87205; 87426; 87641; 93005; 94660; 96365; 96367; 96375; 97110; 97116; 97161; 99291; C1751; J0282; J1940; J1956; J2060; J2405; J2543; J3370; J7050; J7060; Q9967

== ENCOUNTER 2020-10-11 09:00 | Inpatient (IN) | payer MEDICARE, MEDICAID, SELFPAY ==
[2020-10-11] VITALS (39 sets, daily range): BP systolic 70–190; BP diastolic 34–115; PULSE 72–152; RESP 14–42; TEMP 35.9–37.2; O2SAT 63–100; BMI 22.3
--- NOTE | 2020-10-11 09:21 | ECG_ITS ---
[facility] Test Date: 2020-10-11 Pat Name: Clementina Mcghee Department: Room: Gender: Female Bruise Trimmer: : 1955 Requested By: Roz Mcghee Order Number: [id number] Andrea MD: Neema Barillas M.D. Measurements Intervals [place] Rate: 94 P: 80 MA: 155 QRS: 25 QRSD: 196 T: 96 QT: 418 QTc: 525 Interpretive Statements SINUS RHYTHM LEFT BUNDLE BRANCH BLOCK [120+ ms QRS DURATION, 80+ ms Q/S IN V1/V2, 85+ ms R IN I/aVL/V5/V6] INTERPRETATION BASED ON A DEFAULT AGE OF 40 YEARS Compared to ECG 09/12/2020 18:50:19 No significant changes Electronically Signed On 10-11-2020 22:47:11 CDT by Neema Barillas M.D. [id number] f
--- NOTE | 2020-10-11 09:21 | XRR_ITS ---
PROCEDURE INFORMATION: Exam: XR Chest Exam date and time: 10/11/2020 9:49 AM Age: 65 years old Clinical indication: Shortness of breath; Prior surgery; Surgery type: Heart; Additional info: Weakness, hypoxia TECHNIQUE: Imaging protocol: XR of the chest Views: 1 view. COMPARISON: CR (CHEST, ) 09/13/2020 9:28 AM FINDINGS: Lungs: Bilateral interstitial pulmonary infiltrates are present which are similar previous study and consistent with interstitial fibrosis. This has not significantly changed since previous study. Pleural spaces: The left costophrenic angle is blunted consistent with small effusion. Heart/Mediastinum: The cardiac silhouette is enlarged but unchanged. The patient has undergone mitral valve replacement. Bones/joints: Unremarkable. XR/XR chest 1V portable [id number] IMPRESSION: 1. Stable cardiomegaly. 2. Bilateral interstitial pulmonary fibrosis. 3. Small left pleural effusion. 4. No significant change.
--- NOTE | 2020-10-11 09:58 | ED_ITS ---
HPI - Weakness General: Chief complaint: Weakness Stated complaint: N/V; GENERAL WEAKNESS Time Seen by Provider: 10/11/20 09:08 Source: patient Mode of arrival: EMS Limitations: no limitations History of Present Illness: HPI Narrative: 65-year-old female with history of COPD, atrial flutter(anticoagulated on Coumadin) CHF, recently discharged from the hospital on 09/15/2020 after being treated for traumatic injuries from a fall including splenic lac, diaphragmatic rupture, multiple fractures, pneumonia etc. She is complaining of generalized weakness and malaise, decreased appetite, orthopnea, nausea&vomiting for 1 day. No chest pain. She has had a productive cough. No melena. She does have cough, and shortness of breath with exertion and lying down. No sick contacts. Hx of CHF, last EF 28%, severe , Complaint: generalized weakness and lack of energy Onset (ago): day(s) Location: generalized Relieving factors: rest Associated symptoms: Reports decreased appetite, myalgias, nausea, short of breath and vomiting; Denies chest pain, dysuria, fever(s) or headache(s) Review of Systems General: Reports: 10 or more systems reviewed and unremarkable except in HPI and below Const: Reports: daytime sleepiness; Denies: fever(s) or change in weight Eyes: Denies: change in vision or blurry vision ENMT: Reports: post nasal drip; Denies: odynophagia Card: Reports: swelling of feet/ankles and orthopnea; Denies: chest pain or palpitations Resp: Reports: dyspnea, productive cough and chest congestion; Denies: pain on inspiration GI: Reports: nausea, vomiting and diarrhea; Denies: abdominal pain, hematemesis or heartburn : Denies: difficulty voiding, dysuria or urinary frequency Musc: Reports: extremity swelling Skin/Breast: Denies: rash, pruritus or erythema Neuro: Denies: headache(s), numbness in extremities or weakness in extremities PFSH ED PFSH: Medical History Anticoagulated on warfarin ASHD (arteriosclerotic heart disease) Atrial flutter CHF (congestive heart failure) COPD (chronic obstructive pulmonary disease) Depression Emphysema lung Fall Hyperlipidemia Hypertension Multiple rib fractures Osteoporosis PVD (peripheral vascular disease) Surgical History Hx of coronary angioplasty Hx of hysterectomy Hx of mitral valve repair Hx of sinus surgery Hx of tonsillectomy Family History Family/Other Diabetes Cancer Heart disease Katja-Danlos syndrome type VIII Social History Smoking and tobacco status: current some day smoker cigarettes Packs smoked per day: 0.5 Years cigarettes smoked: 40 Second hand smoke exposure: No Alcohol intake: never Lives independently: Yes Marital status: Current occupational status: retired History of recent travel: No Current gender identity: Female Physical Exam Const: COMMON NORMALS: no acute distress, average body habitus, patient oriented x3 and alert GENERAL APPEARANCE: cooperative; not in distress, not lethargic and not ill appearing ORIENTATION/CONSCIOUSNESS: Yes awake, Yes oriented to person, Yes oriented to place and Yes oriented to time; not lethargic HENMT: COMMON NORMALS: normocephalic and atraumatic; 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, rhinophyma) HEAD & SCALP: normal to inspection, normocephalic and atraumatic FACE & SINUS: normal facial exam NOSE: 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, rhinophyma) Neck/C-Spine: COMMON NORMALS: no JVD Chest: COMMONS NORMALS: normal inspection of the chest and normal palpation of entire chest wall Resp: COMMON NORMALS: normal respiratory effort EFFORT & INSPECTION: No abnormal respiratory pattern, No tachypneic, No respiratory distress and Yes Actively coughing AUSCULTATION: crackles, rhonchi and bronchovesicular breath sounds Cardio: COMMON NORMALS: no JVD, regular rate and regular rhythm RATE: regul ar rate RHYTHM: regular rhythm HEART SOUNDS: Murmur heart sound present systolic BRUITS: no abdominal aortic bruits GI: COMMON NORMALS: Soft to palpation INSPECTION: No abdominal wall ecchymosis, No Anasarca, No abdominal distension, Yes scar, No visible herniation, No visible pulsation and No Localized GI swelling present PALPATION: Yes Soft to palpation, No Tenderness to palpation present (GI), No Guarding due to palpation present (GI) and No Rigid due to palpation Extremity: COMMON NORMALS: normal to inspection and full ROM; negative for no calf tenderness and negative for no pedal edema Neuro: COMMON NORMALS: patient oriented x3, CN's II-XII intact bilaterally, moves all extremities, no focal motor deficits and no sensory deficits noted SENSORIUM/ORIENTATION: Yes alert, Yes oriented to person, Yes oriented to place, Yes oriented to time, No lethargic, No somnolent, No obtunded and No stuporous SPEECH: speech normal Skin: COMMON NORMALS: no rashes or lesions noted, no wounds, turgor normal, no jaundice, no petechiae and no mottling GENERAL SKIN EXAM: no rashes or lesions noted and turgor normal Course Vital Signs: Vital signs: Vital Signs Temperature 98.9 F 10/11/20 12:02 Pulse Rate 97 10/11/20 17:43 Respiratory Rate 20 H 10/11/20 17:43 Blood Pressure 117/75 10/11/20 17:43 Pulse Oximetry 99 10/11/20 16:35 MDM - Weakness MDM Narrative: Medical decision making narrative: 65-year-old female with nausea, vomiting, worsening generalized weakness and malaise over the last week. No acute changes on EKG; left bundle branch block similar to previous. No STEMI. Serial troponins stable x2 UA is not convincing for acute UTI CBC and chemistry stable. Mild interval worsening of BUN/creatinine. BNP 17,453, which is decreased from last month. Mildly elevated transaminases. Normal bili. Normal lipase. Some of her routine meds do have potential for hepatotoxicity specifically amiodarone, statins, Treated with Zofran, 500 cc fluid bolus, initially was feeling better, but then started to feel nauseous again and had dry heaving, tried to get up and ambulate, but says she now feels weak and worse than before. We will check Covid rapid and PCR,, urine tox, lactic acid, CT abdomen pelvis. Administer IV PPI. Discussed the case with Dr. Coker, will update him on additional results, and plan to admit for observation. Differential Diagnosis: Weakness Differential Diagnosis: Likely acute myocardial infarction and rhabdomyolysis Medical Records: Attestation: I reviewed the patient's medical records. Lab Data: Attestation: I reviewed the patient's lab results. Labs: Lab Results 10/11/20 10/11/20 10/11/20 Range/Units 10:00 10:00 10:00 WBC 7.6 (4.0-10.0) 10^3/ uL RBC 3.83 L (4.1-5.3) 10^6/u L Hgb 11.9 (11.5-15.3) g/dL Hct 41.0 (37.0-47.0) % MCV 107.0 H (81-99) fL MCH 31.1 (28.0-34.0) pg MCHC 29.0 L (30.0-36.0) g/dL RDW 18.0 H (12.1-15.1) % Plt Count 250 (130-400) 10^3/c mm MPV 11.2 H (7.4-10.4) fL Neut % (Auto) 76.6 % Lymph % (Auto) 13.7 % Billings % (Auto) 8.4 % Eos % (Auto) 0.1 % Baso % (Auto) 0.7 % Neut # (Auto) 5.81 (1.8-7.7) 10^3/u L Lymph # (Auto) 1.0 (0.8-4.8) 10^3/u L Billings # (Auto) 0.6 (0.2-0.9) 10^3/u L Eos # (Auto) 0.0 (0.0-0.8) 10^3/u L Baso # (Auto) 0.1 (0.0-0.1) 10^3/u L Nucleated RBC % (a uto) 0.5 % Nucleated RBCs # 0.0 /100WBC PT (12.1-14.9) SECO NDS INR (0.8-1.2) Specimen Type Sample Site ABG pH (7.35-7.45) ABG pCO2 (35-45) mmHg ABG pO2 (80.0-100.0) mmH g ABG HCO3 (22-26) mmol/L ABG O2 Saturation ABG Base Excess (-2.0-2.0) mmol/ L Davidson Test A-a O2 Gradient (5-10) mmHg Hematocrit (37-47) % Hgb O2 Saturation (95-100) % Carboxyhemoglobin (0.4-20.1) %THgb Methemoglobin (0.4-1.5) % Total Hemoglobin (12-16) g/dL Ionized Calcium (1.1-1.4) mmol/L O2 Delivery Device O2 Liters/Min % FiO2 % Housekeeper And Laundry Assistant ID Sodium 134 L (136-145) mmol/L Potassium 5.1 (3.5-5.1) mmol/L Chloride 99 (98-107) mmol/L Carbon Dioxide 20 L (22-29) mmol/L Anion Gap 20.1 H (5-19) BUN 21 (8-23) mg/dL Creatinine 0.8 (0.5-0.9) mg/dL GFR Calculation 71.5 L (90-130) mL/min Glucose 101 (65-115) mg/dL Calculated Osmolal ity 281 L (285-295) mOsm/k g Calcium 9.5 (8.5-10.5) mg/dL Magnesium 2.0 (1.7-2.3) mg/dL Total Bilirubin 0.6 (0.15-1.2) mg/dL AST 239 H (0-32) U/L ALT 160 H (0-33) U/L Alkaline Phosphata se 130 H (35-105) IU/L Creatine Kinase 33 (26-192) U/L Troponin T Gen 5 n g/L 16 H (0-10) ng/L NT-Pro-B Natriuret Pep 09696 H (0-125) pg/mL Total Protein 7.5 (6.6-8.7) g/dL Albumin 3.6 (3.5-5.2) g/dL Globulin 3.9 (1.3-4.6) g/dL Lipase 45 (13-60) U/L Urine Color (Yellow) Urine Appearance (CLEAR) Urine pH (5-7) Ur Specific Gravit y (1.005-1.030) Urine Protein (Negative) Urine Glucose (UA) (Normal) Urine Ketones (Negative) Urine Blood (Negative) Urine Nitrate (Negative) Urine Bilirubin (Negative) Urine Urobilinogen (Negative) mg/dL Ur Leukocyte Arin ase (Negative) Urine RBC (0-2) /hpf Urine WBC (0-5) /hpf Ur Squamous Epith Cells (0-5) /hpf Amorphous Sediment Urine Bacteria (NONE) /hpf Hyaline Casts /lpf Urine Mucus /hpf Urine Opiates Scre en Ur Barbiturates Sc reen Ur Phencyclidine S crn Ur Amphetamines Sc reen U Benzodiazepines Scrn Urine Cocaine Scre en U Marijuana (THC) Screen SARS-CoV-2 Ag (Rap id) (Negative) 10/11/20 10/11/20 10/11/20 Range/Units 10:28 10:40 10:40 WBC (4.0-10.0) 10^3/ uL RBC (4.1-5.3) 10^6/u L Hgb (11.5-15.3) g/dL Hct (37.0-47.0) % MCV (81-99) fL MCH (28.0-34.0) pg MCHC (30.0-36.0) g/dL RDW (12.1-15.1) % Plt Count (130-400) 10^3/c mm MPV (7.4-10.4) fL Neut % (Auto) % Lymph % (Auto) % Billings % (Auto) % Eos % (Auto) % Baso % (Auto) % Neut # (Auto) (1.8-7.7) 10^3/u L Lymph # (Auto) (0.8-4.8) 10^3/u L Billings # (Auto) (0.2-0.9) 10^3/u L Eos # (Auto) (0.0-0.8) 10^3/u L Baso # (Auto) (0.0-0.1) 10^3/u L Nucleated RBC % (a uto) % Nucleated RBCs # /100WBC PT 41.90 H (12.1-14.9) SECO NDS INR 4.17 H (0.8-1.2) Specimen Type Sample Site ABG pH (7.35-7.45) ABG pCO2 (35-45) mmHg ABG pO2 (80.0-100.0) mmH g ABG HCO3 (22-26) mmol/L ABG O2 Saturation ABG Base Excess (-2.0-2.0) mmol/ L Davidson Test A-a O2 Gradient (5-10) mmHg Hematocrit (37-47) % Hgb O2 Saturation (95-100) % Carboxyhemoglobin (0.4-20.1) %THgb Methemoglobin (0.4-1.5) % Total Hemoglobin (12-16) g/dL Ionized Calcium (1.1-1.4) mmol/L O2 Delivery Device O2 Liters/Min % FiO2 % Housekeeper And Laundry Assistant ID Sodium (136-145) mmol/L Potassium (3.5-5.1) mmol/L Chloride (98-107) mmol/L Carbon Dioxide (22-29) mmol/L Anion Gap (5-19) BUN (8-23) mg/dL Creatinine (0.5-0.9) mg/dL GFR Calculation (90-130) mL/min Glucose (65-115) mg/dL Calculated Osmolal ity (285-295) mOsm/k g Calcium (8.5-10.5) mg/dL Magnesium (1.7-2.3) mg/dL Total Bilirubin (0.15-1.2) mg/dL AST (0-32) U/L ALT (0-33) U/L Alkaline Phosphata se (35-105) IU/L Creatine Kinase (26-192) U/L Troponin T Gen 5 n g/L (0-10) ng/L NT-Pro-B Natriuret Pep (0-125) pg/mL Total Protein (6.6-8.7) g/dL Albumin (3.5-5.2) g/dL Globulin (1.3-4.6) g/dL Lipase (13-60) U/L Urine Color Dark yellow (Yellow) Urine Appearance Clear (CLEAR) Urine pH 5 (5-7) Ur Specific Gravit y 1.030 (1.005-1.030) Urine Protein 1+ H (Negative) Urine Glucose (UA) Norm (Normal) Urine Ketones Negative (Negative) Urine Blood Neg (Negative) Urine Nitrate Negative (Negative) Urine Bilirubin 1+ H (Negative) Urine Urobilinogen 1 H (Negative) mg/dL Ur Leukocyte Arin ase Negative (Negative) Urine RBC None (0-2) /hpf Urine WBC None (0-5) /hpf Ur Squamous Epith Cells Rare (0-5) /hpf Amorphous Sediment Not Reportable Urine Bacteria 1+ H (NONE) /hpf Hyaline Casts 0-4 H /lpf Urine Mucus Trace /hpf Urine Opiates Scre en Cancelled Ur Barbiturates Sc reen Cancelled Ur Phencyclidine S crn Cancelled Ur Amphetamines Sc reen Cancelled U Benzodiazepines Scrn Cancelled Urine Cocaine Scre en Cancelled U Marijuana (THC) Screen Cancelled SARS-CoV-2 Ag (Rap id) (Negative) 10/11/20 10/11/20 10/11/20 Range/Units 11:20 12:32 15:45 WBC (4.0-10.0) 10^3/ uL RBC (4.1-5.3) 10^6/u L Hgb (11.5-15.3) g/dL Hct (37.0-47.0) % MCV (81-99) fL MCH (28.0-34.0) pg MCHC (30.0-36.0) g/dL RDW (12.1-15.1) % Plt Count (130-400) 10^3/c mm MPV (7.4-10.4) fL Neut % (Auto) % Lymph % (Auto) % Billings % (Auto) % Eos % (Auto) % Baso % (Auto) % Neut # (Auto) (1.8-7.7) 10^3/u L Lymph # (Auto) (0.8-4.8) 10^3/u L Billings # (Auto) (0.2-0.9) 10^3/u L Eos # (Auto) (0.0-0.8) 10^3/u L Baso # (Auto) (0.0-0.1) 10^3/u L Nucleated RBC % (a uto) % Nucleated RBCs # /100WBC PT (12.1-14.9) SECO NDS INR (0.8-1.2) Specimen Type Arterial Sample Site Brachial, left ABG pH 7.38 (7.35-7.45) ABG pCO2 42.6 (35-45) mmHg ABG pO2 64.9 L (80.0-100.0) mmH g ABG HCO3 25.0 (22-26) mmol/L ABG O2 Saturation 88.3 ABG Base Excess -0.3 (-2.0-2.0) mmol/ L Davidson Test N/a A-a O2 Gradient 10.9 H (5-10) mmHg Hematocrit 33.9 L (37-47) % Hgb O2 Saturation 86.4 L (95-100) % Carboxyhemoglobin 1.3 (0.4-20.1) %THgb Methemoglobin 0.8 (0.4-1.5) % Total Hemoglobin 11.1 L (12-16) g/dL Ionized Calcium 1.3 (1.1-1.4) mmol/L O2 Delivery Device Nc O2 Liters/Min 2.0 % FiO2 28.0 % Housekeeper And Laundry Assistant ID Amh Sodium 136.0 (136-145) mmol/L Potassium 4.9 (3.5-5.1) mmol/L Chloride (98-107) mmol/L Carbon Dioxide (22-29) mmol/L Anion Gap (5-19) BUN (8-23) mg/dL Creatinine (0.5-0.9) mg/dL GFR Calculation (90-130) mL/min Glucose 90.0 (65-115) mg/dL Calculated Osmolal ity (285-295) mOsm/k g Calcium (8.5-10.5) mg/dL Magnesium (1.7-2.3) mg/dL Total Bilirubin (0.15-1.2) mg/dL AST (0-32) U/L ALT (0-33) U/L Alkaline Phosphata se (35-105) IU/L Creatine Kinase (26-192) U/L Troponin T Gen 5 n g/L 18 H (0-10) ng/L NT-Pro-B Natriuret Pep (0-125) pg/mL Total Protein (6.6-8.7) g/dL Albumin (3.5-5.2) g/dL Globulin (1.3-4.6) g/dL Lipase (13-60) U/L Urine Color (Yellow) Urine Appearance (CLEAR) Urine pH (5-7) Ur Specific Gravit y (1.005-1.030) Urine Protein (Negative) Urine Glucose (UA) (Normal) Urine Ketones (Negative) Urine Blood (Negative) Urine Nitrate (Negative) Urine Bilirubin (Negative) Urine Urobilinogen (Negative) mg/dL Ur Leukocyte Arin ase (Negative) Urine RBC (0-2) /hpf Urine WBC (0-5) /hpf Ur Squamous Epith Cells (0-5) /hpf Amorphous Sediment Urine Bacteria (NONE) /hpf Hyaline Casts /lpf Urine Mucus /hpf Urine Opiates Scre en Ur Barbiturates Sc reen Ur Phencyclidine S crn Ur Amphetamines Sc reen U Benzodiazepines Scrn Urine Cocaine Scre en U Marijuana (THC) Screen SARS-CoV-2 Ag (Rap id) Negative (Negative) 10/11/20 Range/Units 17:11 WBC (4.0-10.0) 10^3/ uL RBC (4.1-5.3) 10^6/u L Hgb (11.5-15.3) g/dL Hct (37.0-47.0) % MCV (81-99) fL MCH (28.0-34.0) pg MCHC (30.0-36.0) g/dL RDW (12.1-15.1) % Plt Count (130-400) 10^3/c mm MPV (7.4-10.4) fL Neut % (Auto) % Lymph % (Auto) % Billings % (Auto) % Eos % (Auto) % Baso % (Auto) % Neut # (Auto) (1.8-7.7) 10^3/u L Lymph # (Auto) (0.8-4.8) 10^3/u L Billings # (Auto) (0.2-0.9) 10^3/u L Eos # (Auto) (0.0-0.8) 10^3/u L Baso # (Auto) (0.0-0.1) 10^3/u L Nucleated RBC % (a uto) % Nucleated RBCs # /100WBC PT (12.1-14.9) SECO NDS INR (0.8-1.2) Specimen Type Sample Site ABG pH (7.35-7.45) ABG pCO2 (35-45) mmHg ABG pO2 (80.0-100.0) mmH g ABG HCO3 (22-26) mmol/L ABG O2 Saturation ABG Base Excess (-2.0-2.0) mmol/ L Davidson Test A-a O2 Gradient (5-10) mmHg Hematocrit (37-47) % Hgb O2 Saturation (95-100) % Carboxyhemoglobin (0.4-20.1) %THgb Methemoglobin (0.4-1.5) % Total Hemoglobin (12-16) g/dL Ionized Calcium (1.1-1.4) mmol/L O2 Delivery Device O2 Liters/Min % FiO2 % Housekeeper And Laundry Assistant ID Sodium (136-145) mmol/L Potassium (3.5-5.1) mmol/L Chloride (98-107) mmol/L Carbon Dioxide (22-29) mmol/L Anion Gap (5-19) BUN (8-23) mg/dL Creatinine (0.5-0.9) mg/dL GFR Calculation (90-130) mL/min Glucose (65-115) mg/dL Calculated Osmolal ity (285-295) mOsm/k g Calcium (8.5-10.5) mg/dL Magnesium (1.7-2.3) mg/dL Total Bilirubin (0.15-1.2) mg/dL AST (0-32) U/L ALT (0-33) U/L Alkaline Phosphata se (35-105) IU/L Creatine Kinase (26-192) U/L Troponin T Gen 5 n g/L (0-10) ng/L NT-Pro-B Natriuret Pep (0-125) pg/mL Total Protein (6.6-8.7) g/dL Albumin (3.5-5.2) g/dL Globulin (1.3-4.6) g/dL Lipase (13-60) U/L Urine Color (Yellow) Urine Appearance (CLEAR) Urine pH (5-7) Ur Specific Gravit y (1.005-1.030) Urine Protein (Negative) Urine Glucose (UA) (Normal) Urine Ketones (Negative) Urine Blood (Negative) Urine Nitrate (Negative) Urine Bilirubin (Negative) Urine Urobilinogen (Negative) mg/dL Ur Leukocyte Arin ase (Negative) Urine RBC (0-2) /hpf Urine WBC (0-5) /hpf Ur Squamous Epith Cells (0-5) /hpf Amorphous Sediment Urine Bacteria (NONE) /hpf Hyaline Casts /lpf Urine Mucus /hpf Urine Opiates Scre en Positive H Ur Barbiturates Sc reen Negative Ur Phencyclidine S crn Negative Ur Amphetamines Sc reen Negative U Benzodiazepines Scrn Positive H Urine Cocaine Scre en Negative U Marijuana (THC) Screen Negative SARS-CoV-2 Ag (Rap id) (Negative) Discharge Plan Discharge Patient Disposition: Admitted As Inpatient Admit Provider: Leander Cardoso Clinical Impression: Chronic malaise, Supratherapeutic international normalized ratio (INR), Abnormal transaminases Arthralgia Qualifiers: Joint pain location: unspecified Qualified Code(s): M25.50 - Pain in unspecified joint Nausea and vomiting Qualifiers: Vomiting type: unspecified Vomiting Intractability: non-intractable Qualified Code(s): R11.2 - Nausea with vomiting, unspecified Condition: Stable Discharge Diet: Advance as tolerated Discharge Activity: Increase activity as tolerated Coding Level of Care Code ED Sound Mixer for g Fwd Exam Comprehensive
[2020-10-11 10:24] LABS: Basophils # 0.1 10^3/uL (0.0-0.1); Basophils % 0.7 %; Eosinophils % 0.1 %; Hemoglobin 11.9 g/dL (11.5-15.3); Lymphocytes % 13.7 %; Mean Corpuscular Hemoglobin 31.1 pg (28.0-34.0); Mean Platelet Volume 11.2 fL (7.4-10.4); Monocytes # 0.6 10^3/uL (0.2-0.9); Monocytes % 8.4 %; Neutrophils # 5.81 10^3/uL (1.8-7.7); Neutrophils % 76.6 %; Nucleated Red Blood Cells % 0.5 %; Platelet Count 250 10^3/cmm (130-400); Red Blood Count 3.83 10^6/uL (4.1-5.3); White Blood Count 7.6 10^3/uL (4.0-10.0)
[2020-10-11 10:41] LABS: Troponin T (5th) Once 16 ng/L (0-10)
[2020-10-11 10:49] LABS: Alanine Aminotransferase 160 U/L (0-33); Albumin Level 3.6 g/dL (3.5-5.2); Alkaline Phosphatase 130 IU/L (35-105); Anion Gap 20.1 (5-19); Aspartate Amino Transferase 239 U/L (0-32); Blood Urea Nitrogen 21 mg/dL (8-23); Calcium 9.5 mg/dL (8.5-10.5); Carbon Dioxide 20 mmol/L (22-29); Chloride 99 mmol/L (98-107); Creatine Phosphokinase 33 U/L (26-192); Creatinine Clr Calc Pharmacy 60.7646; Globulin 3.9 g/dL (1.3-4.6); Glomerular Filtration Rate 71.5 mL/min (90-130); Glucose 101 mg/dL (65-115); Lipase 45 U/L (13-60); NT Pro B Type Natriuretic Pept 17453 pg/mL (0-125); Osmolality Calculated 281 mOsm/kg (285-295); Potassium 5.1 mmol/L (3.5-5.1); Sodium 134 mmol/L (136-145); Total Bilirubin 0.6 mg/dL (0.15-1.2); Total Protein 7.5 g/dL (6.6-8.7)
[2020-10-11 10:59] LABS: INR 4.17 (0.8-1.2)
[2020-10-11 11:04] LABS: Add Urine Microscopic? YES; Bilirubin Urine 1+ (Negative); Blood Urine Neg (Negative); Glucose Urine UA Norm (Normal); Ketones Urine Negative (Negative); Leukocyte Esterase Urine Negative (Negative); Nitrate Urine Negative (Negative); Protein Urine 1+ (Negative); Urine Appearance Clear (CLEAR); Urine Color Dark Yellow (Yellow); Urobilinogen Urine 1 mg/dL (Negative); pH Urine 5 (5-7)
[2020-10-11 11:08] LABS: Add Urine Culture? No; Bacteria Urine 1+ /hpf; Hyaline Casts Urine 0-4 /lpf; Mucus Urine TRACE /hpf; Squamous Epithelial Cell Urine RARE /hpf (0-5)
[2020-10-11 11:32] LABS: ABG PCO2 42.6 mmHg (35-45); ABG PH Result 7.38 (7.35-7.45); Alveolar-Arterial Oxygen Gradi 10.9 mmHg (5-10); Arterial Blood Gas Hematocrit 33.9 % (37-47); Base Excess ABG -0.3 mmol/L (-2.0-2.0); Blood Gas Operator Identificat AMH; Blood Gas Sample Site Brachial, left; Blood Gas Sample Type Arterial; Carboxyhemoglobin 1.3 %THgb (0.4-20.1); HGB O2 Sat 86.4 % (95-100); Ionized Calcium Level - ABG 1.3 mmol/L (1.1-1.4); Methemoglobin 0.8 % (0.4-1.5); Oxygen Device NC; Oxygen Saturation ABG 88.3; PO2 ABG 64.9 mmHg (80.0-100.0); Potassium Level - ABG 4.9 mmol/L (3.5-5.0); Total Hemoglobin 11.1 g/dL (12-16)
[2020-10-11] MEDS: ondansetron 2 mg/ML SDV 2 mL 4 MG IVP ×2 (11:58→17:22)
[2020-10-11 13:05] LABS: Troponin T (5th) Once 18 ng/L (0-10)
--- NOTE | 2020-10-11 13:55 | PC.NURSE ---
while helping patient up , patient started to c/o nausea, feel weak. severe pain to lower back. MD notified
[2020-10-11] MEDS: HYDROcodone-acetaminophen 7.5-325 mg Tablet 1 TAB PO (14:13)
--- NOTE | 2020-10-11 14:53 | CTR_ITS ---
PROCEDURE INFORMATION: Exam: CT Abdomen And Pelvis With Contrast Exam date and time: 10/11/2020 3:25 PM Age: 65 years old Clinical indication: Abdominal pain; Generalized; Additional info: Abdominal pain back pain TECHNIQUE: Imaging protocol: Computed tomography of the abdomen and pelvis with contrast. Radiation optimization: All CT scans at this facility use at least one of these dose optimization techniques: automated exposure control; mA and/or kV adjustment per patient size (includes targeted exams where dose is matched to clinical indication); or iterative reconstruction. Contrast material: OMNI 300; Contrast volume: 95 ml; Contrast route: INTRAVENOUS (IV); COMPARISON: CT chest abd pel w con* 09/08/2020 3:00 PM RADIATION DOSE METRICS: Total DLP (mGy-cm): 1069.37 FINDINGS: Pleural spaces: There is a small left and trace right pleural effusions with adjacent atelectasis. There is bilateral subpleural reticular opacities and cystic changes at the lung bases, consistent with fibrotic changes. Heart: Mildly enlarged heart. Prosthetic mitral valve noted. Coronary atherosclerotic calcifications seen. No pericardial effusion. Liver: Trace perihepatic fluid noted. Gallbladder and bile ducts: There is tiny gallstones and diffuse thickening of the gallbladder wall without significant surrounding inflammatory changes. Pancreas: Normal. No ductal dilation. Spleen: The spleen is surgically absent. Adrenal glands: Normal. No mass. Kidneys and ureters: There is striated enhancement of the kidneys, consistent with pyelonephritis. No hydronephrosis or nephrolithiasis. Stomach and bowel: Unremarkable. No obstruction. No mucosal thickening. Appendix: No evidence of appendicitis. Intraperitoneal space: Unremarkable. No free air. No significant fluid collection. Vasculature: Moderate diffuse atherosclerotic disease is present. Lymph nodes: Unremarkable. No enlarged lymph nodes. Urinary bladder: Unremarkable as visualized. Reproductive: The uterus is surgically absent. Bones/joints: Mild dextrocurvature of the lumbar spine and degenerative changes seen. Median sternotomy changes noted in the senior specialist view. Old fracture deformities noted in the left ribcage. Soft tissues: Mid anterior abdominal wall surgical changes seen. CT/CT abdomen pelvis w con* [id number] IMPRESSION: 1. Bilateral pyelonephritis. 2. Cholelithiasis and nonspecific thickening of the gallbladder wall, without significant surrounding inflammatory changes. If there is clinical concern for acute cholecystitis, correlation with abdominal ultrasound should be considered. 3. Small bilateral pleural effusions, and fibrotic changes at the lung bases. Radiation Dose CTDIVOL = (mGy): DLP = 1069.37 (mGy-cm)
[2020-10-11] MEDS: sodium chloride 0.9% 500 ML IV (15:36)
[2020-10-11] MEDS: pantoprazole 40 mg SDV IVP (15:36)
[2020-10-11 16:53] LABS: SARS Covid-2 Antigen Negative (Negative)
[2020-10-11] MEDS: iohexol 300 mg/mL 100 mL Btl IV (17:01)
[2020-10-11 17:36] LABS: Amphetamines Screen Urine Negative (Negative); Barbiturates Screen Urine Negative (Negative); Benzodiazepines Screen Urine Positive (Negative); Cocaine Screen Urine Negative (Negative); Opiate Screen Urine Positive (Negative); PCP Screen Urine Negative (Negative); THC Screen Urine Negative (Negative)
[2020-10-11] MEDS: cefTRIAXone 1,000 MG in sodium chloride 0.9% (plus) 50 ML 100 MG IV (17:41)
[2020-10-11 18:01] LABS: C Reactive Protein 39.8 mg/L (0.0-4.9)
--- NOTE | 2020-10-11 19:05 | CTR_ITS ---
PROCEDURE INFORMATION: Exam: CT Head Without Contrast Exam date and time: 10/11/2020 7:13 PM Age: 65 years old Clinical indication: Malaise or fatigue; Patient HX: Weakness and malaise; Additional info: N/v, malaise, supratherapeutic inr, suspected microemboli TECHNIQUE: Imaging protocol: Computed tomography of the head without contrast. Radiation optimization: All CT scans at this facility use at least one of these dose optimization techniques: automated exposure control; mA and/or kV adjustment per patient size (includes targeted exams where dose is matched to clinical indication); or iterative reconstruction. COMPARISON: CT head wo con* [id number] 08/13/2020 5:10 PM RADIATION DOSE METRICS: Total DLP (mGy-cm): 1736.33 FINDINGS: Brain: No hemorrhage, mass effect or midline shift. No acute, major vascular distribution infarction identified. There is foci of decreased attenuation in the periventricular and subcortical white matter, likely representing chronic small vessel ischemic changes. Mild cerebral volume loss is present. No intra-axial or extra-axial fluid collection seen. Cerebral ventricles: No ventriculomegaly. Bones/joints: Unremarkable. No acute fracture. Paranasal sinuses: Visualized sinuses are unremarkable. No fluid levels. Mastoid air cells: Visualized mastoid air cells are well aerated. Soft tissues: Unremarkable. CT/CT head wo con* [id number] IMPRESSION: No acute intracranial abnormality. Radiation Dose CTDIVOL = (mGy): DLP = 1736.33 (mGy-cm)
--- NOTE | 2020-10-11 20:20 | PM.HP ---
Providers/Chief Complaint Admitting Physician: Leander Cardoso Primary Care Provider: JUSTIN Mccollum Chief Complaint: N/V; GENERAL WEAKNESS History of Present Illness Very pleasant 65-year-old lady with history of nonobstructive CAD, PAD, stenting of left subclavian artery, atrial flutter, on chronic anticoagulation with warfarin, systolic and diastolic CHF, EF 28%, moderate AVR in January 2020, COPD, recently quit smoker, emphysema, HTN, HLD, history of mitral valve repair who had sustained a fall down some stairs in August with rib fractures, subsequently splenic rupture, diaphragmatic rupture, transfer to [facility] where she underwent splenectomy and repair respectively, then recently admitted at [facility] for management of atrial fibrillation with RVR, started on amiodarone, reports after hospitalization was feeling all right for about a week or somewhat more, however, subsequently again started declining health, feeling generally weak, and particular in the last 3 days, this morning also started having severe nausea, vomiting, malaise. Appetite has been poor. In the ER she is found not to have MD, UA not convincing for UTI, with 1+ bilirubin, 1 mg/dL urobilinogen, 1+ bacteria, 0-4 hyaline casts. Urine drug screen positive for opiates, benzodiazepines. Rapid COVID-19 negative. BNP elevated at 17,453. Noted to have mild hyponatremia, sodium 134, anion gap 20.1, bicarb 20. BUN 21, creatinine 0.8. AST 239, ALT 160, alk phos 130. Lipase normal. CK 33. INR 4.17. ABG 7.38/42.6/64.9. CRP 39.8 She received Zofran, 500 cc fluid bolus, was transiently feeling better, and consideration was given for her to return home, however, subsequently when try to get up again very weak, difficulty ambulating due to general weakness. Given also PPI. PCR COVID-[address] abdomen pelvis obtained with finding of bilateral pyelonephritis. Cholelithiasis and nonspecific thickening of gallbladder wall. Small bilateral pleural effusions and fibrotic changes at lung bases. She is still feeling weak, with malaise, nausea, epigastric abdominal discomfort, earlier some lower abdominal discomfort, although has not had any dysuria. Denies any headache, dizziness, vision changes recently, although vision progressively getting worse over the last year. Denies any focal weakness, numbness. Denies trouble speaking or word finding difficulty. She is noted to have skin reticulation of bilateral lower extremities. There is some bluing of her feet, fingertips. She reports her fingers and feet have been doing that, sometimes when cold, however, she does not feel cold inside, and not this severely. Discussing the bruising on her nose, denies any trauma. Reports that the change appeared spontaneously. No pain. Discussing with her son over the phone he states that this was present during her hospitalization at [facility], and that there was consideration perhaps of a skin condition. Discussing with her and then with her son regarding noted small round bluish lesion on the anterolateral right side of the tongue neither has been aware of when this may have appeared, and this was not present last time. She follows with Dr. Rizo in office with regards to her cardiac issues. Her last INR was checked this past week, and reports was somewhat elevated so she had held her warfarin for 2 days, and took 2 mg dose yesterday evening. She varies warfarin between 3 mg on Monday, and 2 mg the other days. She follows with Dr. Gonzales with regards to rheumatoid arthritis and possible PMR and has been on chronic/slow steroid taper, currently down to 8 mg of prednisone daily. Review of Systems Const: Reports: malaise; Denies: fever(s) or chills Eyes: Reports: change in vision (Worsening vision in the last year); Denies: eye discomfort or eye redness ENMT: Denies: throat pain, oral sores or ear or mastoid pain Card: Denies: chest pain, edema, pre-syncope or dyspnea on exertion Resp: Denies: dyspnea, productive cough, change in phlegm color or hemoptysis GI: Reports: abdominal pain, nausea and vomiting; Denies: diarrhea, constipation, hematochezia or melena : Denies: flank pain, urinary frequency or hematuria Musc: Reports: back pain (Chronic); Denies: joint swelling or joint redness Skin/Breast: Denies: rash, sores or new lesions Neuro: Denies: headache(s), numbness in extremities, weakness in extremities, dizziness, confusion or seizure-like activity Endo: Denies: polyuria or polydipsia Duong/Lymph: Denies: easy bleeding or purpura All/Imm: Denies: urticaria, throat swelling or tongue swelling Medications/Allergies Home Medications Medication Instructions Recorded Confirmed Last Taken Type ascorbate calcium (vitamin C) 500 1 gm PO DAILY@07 tab 08/29/19 10/11/20 10/10/20 History mg tablet INR #1 ea 03/23/20 10/11/20 Unknown Rx nitroglycerin 0.4 mg sublingual 0.4 mg SUBLINGUAL Q5M PRN #30 tab 04/02/20 10/11/20 Unknown Rx tablet ranolazine 500 mg tablet,extended 500 mg PO Q12H #180 tab 06/02/20 10/11/20 10/10/20 Rx release,12 hr amiodarone [Pacerone] 200 mg PO DAILY@06/23/20 10/11/20 10/10/20 History citalopram 10 mg PO DAILY@06/23/20 10/11/20 10/10/20 History lisinopril 5 mg PO DAILY@06/23/20 10/11/20 10/10/20 History simvastatin 40 mg PO DAILY@06/23/20 10/11/20 10/10/20 History isosorbide mononitrate 30 mg 30 mg PO DAILY@07 #90 tab 06/25/20 10/11/20 10/10/20 Rx tablet,extended release 24 hr tiotropium bromide 2.5 See Rx Instructions .ROUTE 06/25/20 10/11/20 10/10/20 Rx mcg/actuation mist for inhalation .COMPLEX #4 g prednisone 1 mg tablet See Rx Instructions PO DAILY #200 07/29/20 10/11/20 10/10/20 Rx tab hydroxychloroquine 200 mg PO BID@0700,1900 08/13/20 10/11/20 10/10/20 History melatonin 10 mg PO BEDTIME@2200 PRN 08/13/20 10/11/20 10/10/20 History potassium chloride 20 meq PO TID@07,12,08/13/20 10/11/20 10/10/20 History cyclobenzaprine 10 mg tablet 10 mg PO TID PRN #30 tab 08/21/20 10/11/20 Unknown Rx tramadol 50 mg tablet 50 mg PO TID PRN #30 tab 08/21/20 10/11/20 Unknown Rx mupirocin 1 applic TOPICAL TID@07,12,08/27/20 10/11/20 08/27/20 History metoprolol succinate 25 mg See Rx Instructions PO .COMPLEX 09/23/20 10/11/20 10/10/20 History tablet,extended release 24 hr albuterol sulfate 90 mcg/actuation 2 puff INHALATION QID PRN #8.5 g 09/30/20 10/11/20 Unknown Rx aerosol inhaler lemborexant 5 mg tablet 5 mg PO BEDTIME@2200 #30 tab 09/30/20 10/11/20 10/10/20 Rx furosemide 40 mg PO BID@,10/11/20 10/11/20 10/10/20 History warfarin 2 mg PO DAILY 10/11/20 10/11/20 10/10/20 History Allergies Allergy/AdvReac Type Severity Reaction Status Date / Time No Known Allergies Allergy Verified 09/23/20 10:54 PFSH Acute PFSH: Medical History (Updated 10/11/20 @ 21:12 by Adarsh Coker MD) Anticoagulated on warfarin ASHD (arteriosclerotic heart disease) Atrial flutter CHF (congestive heart failure) COPD (chronic obstructive pulmonary disease) Depression Emphysema lung Fall Hyperlipidemia Hypertension Multiple rib fractures Osteoporosis Polymyalgia rheumatica PVD (peripheral vascular disease) Rheumatoid arthritis Surgical History (Updated 10/11/20 @ 20:51 by Adarsh Coker MD) Diaphragm, rupture H/O splenectomy Hx of coronary angioplasty Hx of hysterectomy Hx of mitral valve repair Hx of sinus surgery Hx of tonsillectomy Family History Family/Other Diabetes Cancer Heart disease Katja-Danlos syndrome type VIII Social History Smoking and tobacco status: former smoker Second hand smoke exposure: No Alcohol intake: never Substance/Drug Use: never Lives independently: Yes Household members: other Details: Son Marital status: / Current occupational status: retired History of recent travel: No Current gender identity: Female Vitals/I&O/Wt Last Vital Signs Temp 98.9 F 10/11/20 12:02 Pulse 95 10/11/20 19:00 Resp 20 H 10/11/20 19:00 BP 114/75 10/11/20 19:00 Pulse Ox 92 10/11/20 19:00 10/11/20 10/11/20 10/11/20 06:59 14:59 22:59 Intake Total 550 / 550 Balance 550 / 550 Weight last 48 hrs Weight 58.967 kg Physical Exam Const: COMMON NORMALS: patient oriented x3 and alert GENERAL APPEARANCE: cooperative and ill appearing; not comfortable ORIENTATION/CONSCIOUSNESS: Yes awake OTHER: Nauseated HENMT: COMMON NORMALS: oropharynx normal Neck/C-Spine: COMMON NORMALS: no JVD Resp: COMMON NORMALS: normal respiratory effort and clear to auscultation bilaterally AUSCULTATION: clear to auscultation bilaterally Cardio: COMMON NORMALS: no JVD, regular rhythm, S1 normal heart sound present, S2 normal heart sound present and No murmurs present (Cardio) RHYTHM: regular rhythm HEART SOUNDS: S1 normal heart sound present and S2 normal heart sound present GI: COMMON NORMALS: Normal to inspection, nondistended, normoactive bowel sounds present and Soft to palpation PALPATION: Yes Soft to palpation and Yes Tenderness to palpation present (GI) (epigastric, mild RUQ) Extremity: COMMON NORMALS: no joint enlargement and no pedal edema Neuro: COMMON NORMALS: patient oriented x3 and moves all extremities Skin: COMMON NORMALS: no rashes or lesions noted GENERAL SKIN EXAM: other (reticulation on BL LE) OTHER: Bluish discoloration of fingertips, distal toes, soles of feet. Small round blue spot on anterior lateral right side of the tongue Data : 10/11/20 10:00 10/11/20 10:00 A&P Assessment and plan (1) Acute pyelonephritis: Incidentally noted on CT. Interestingly urinalysis not particularly suggestive of pyelonephritis. Urine culture pending. Blood culture collected. Discussed with her and her son also differential diagnosis that includes other conditions, including possibility of microembolic disease, given tongue lesion, skin changes that may suggest vasculitis with known autoimmune illness, fluctuating INR recently, and her having to hold warfarin for several days resuming it just yesterday. Differential also includes possible steroid induced gastritis and duodenitis. Status: Acute (2) Thickening of wall of gallbladder: There is moderate transaminitis, AST: ALT ~2-1 pattern, although she does not drink alcohol, CK normal. Alk phos moderately elevated at 130. T bili normal. Mild right upper quadrant tenderness, however, more tender in epigastrium, and possibly some radiation. On CT some thickening noted in the gallbladder. No significant surrounding inflammation. Zosyn as above. Follow blood cultures. Liver ultrasound ordered, follow-up results. Consider additional gallbladder specific imaging depending on results to assess for possible cholecystitis, although this appears less likely. Possibly chronic cholecystitis with cholelithiasis. Will benefit from follow-up with surgery in case is not an active issue. Status: Acute (3) Transaminitis: AST, ALT moderate elevation, ~2-1 pattern. Nondrinker. CK normal. Possibly dehydration secondary to vomiting. Additional assessment of biliary tree as above. Possible effect of amiodarone. Would hold and perhaps discontinue amiodarone entirely especially given also pulmonary fibrosis findings. Hold statin. Monitor liver function. Again consider possible microembolic disease or autoimmune involvement. Status: Acute (4) Tongue lesion: Round ecchymotic appearance of lesion on anterolateral right side of the tongue. Neither she and her son remember when this is appeared. This may be trauma secondary to bite due to supratherapeutic INR. She denies any pain or recollection of injuring her tongue. Discussed possibility with her and her son regarding embolic disease. They are agreeable at this time to continue anticoagulation, will try to gently taper off warfarin. Hold today, once INR coming down to therapeutic consider either transition to heparin if there is any concern regarding septic embolic disease, or continuing warfarin. Continue monitoring INR. Anticipate changing warfarin requirement while amiodarone is being held. CT head obtained, does not appear to have any hemorrhages or punctate lesions, although noncontrast study. Exam grossly nonfocal, however. Bilateral pyelonephritis findings as above. 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 CRP is elevated, despite being on steroids, higher than ever previously. Continue anticoagulation, hydroxychloroquine. Steroid. Statin on hold for now, but would resume in case liver parameters improving. Add lupus anticoagulant, anticardiolipin antibody, beta-2 glycoprotein antibody. 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 Status: Acute (6) Cyanosis: Possible Raynaud's as above. Not hypotensive. Status: Acute (7) Elevated C-reactive protein (CRP): As above. Status: Acute (8) Elevated brain natriuretic peptide (BNP) level: Secondary to valvular heart disease. Possible pulmonary fibrosis. Possible pulmonary hypertension. Currently not fluid overloaded. Has severe underlying cardiomyopathy. Monitor for CHF as he is at high risk of developing exacerbation. Status: Acute (9) Pulmonary fibrosis: Hold amiodarone and would discontinue if possible. Would benefit from PFT, pulmonology follow-up. Status: Acute (10) Steroid-induced gastritis: Famotidine IV. Zofran as needed for nausea. Monitor QT. Once vomiting subsides consider sucralfate. Status: Acute (11) Supratherapeutic international normalized ratio (INR): Hold warfarin for now. Reassess INR in the morning, adjust accordingly or consider transition to heparin or holding entirely in and results came back concerning for septic emboli. Status: Acute (12) Hx of mitral valve repair: She is not sure what kind of valve, says it was just repair, not replacement, although I see in cardiology notes that looks like valve was replaced. I do not see anywhere indication that this is a mechanical valve. She denies this. 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 She tells me target INR 2-3. With concern for possible embolic disease, assessed with TTE. Consider assessment by KAMALA. Collect blood culture. Status: Acute (13) Lactic acidosis: Suspect secondary to dehydration, vomiting, in the setting of poor oral intake recently, as well as possibility of additionally liver dysfunction. Less likely possible sepsis, is otherwise does not fit criteria. However, treat empirically as above. Blood cultures requested. Antibiotic requested. Received 500 mL bolus, hold off additional fluids due to lower suspicion of sepsis, but also due to underlying severe cardiomyopathy, AVR, MVR. Status: Acute Additional A&P Information Cardiomyopathy: History of CHF. Did not come in with CHF exacerbation. Cautious use of fluids given history of cardiomyopathy, underlying valvular dysfunction. Rheumatoid arthritis Possible PMR Nonobstructive CAD PAD with left clavicular artery stenting HTN HLD Attestations Medical Necessity Statement*: Admission of over 2 midnights is going to needed for assessment management of acute pyelonephritis, steroid-induced gastritis with persistent nausea and vomiting, malaise, assessment for possible cholecystitis, assessment for possible additional autoimmune condition, optimization of anticoagulation in the setting of supratherapeutic INR, discontinuation of amiodarone, and additional comorbidities as above. Coding Level of Care Code Acute Lcac Radar Operator/Navigator for Chg Fwd Exam Comprehensive Diagnoses Acute pyelonephritis N10 Thickening of wall of gallbladder K82.8 Transaminitis R74.01 Tongue lesion K14.8 Livedo reticularis R23.1 Cyanosis R23.0 Elevated C-reactive protein (CRP) R79.82 Elevated brain natriuretic peptide (BNP) level R79.89 Pulmonary fibrosis J84.10 Steroid-induced gastritis K29.60; T38.0X5A Supratherapeutic international normalized ratio (INR) R79.1 Hx of mitral valve repair Z98.890 Lactic acidosis E87.2
[2020-10-11 20:26] LABS: Procalcitonin 0.05 ng/mL (0-0.5)
[2020-10-11 20:49] LABS: Lactate (Lactic Acid level) 6.8 mmol/L (0.5-2.2)
[2020-10-11] MEDS: famotidine 20 mg/2 mL INJ IVP (21:47)
--- NOTE | 2020-10-11 22:11 | XRR_ITS ---
PROCEDURE INFORMATION: Exam: XR Chest Exam date and time: 10/11/2020 10:13 PM Age: 65 years old Clinical indication: Device placement; Ett placement (vent status); Prior surgery; Patient HX: Post code, intubation, and tube placement TECHNIQUE: Imaging protocol: XR of the chest Views: 1 view. COMPARISON: CR XR chest 1V portable [id number] 10/11/2020 9:39 AM FINDINGS: Tubes, catheters and devices: Distal aspect of the ET tube is positioned 2.3 cm superior to the rafaela. Fenestration of the distal G-tube is positioned in the left upper quadrant in the expected location of the stomach fundus. Lungs: There is patchy bilateral pulmonary consolidation most prominent in the right upper lung field. Impression patchy bilateral pulmonary consolidation, consistent with pneumonia. Pleural spaces: Small left pleural effusion. There is blunting of the right costophrenic angle suggestive of a small pleural effusion. Heart/Mediastinum: Cardiomegaly. There is a stent along the left side of the superior mediastinum. Bones/joints: There are posterior sternotomy changes and postoperative changes overlying the mediastinum. XR/XR chest 1V portable [id number] IMPRESSION: Distal ET tube is positioned 2.3 cm superior to the rafaela.
[2020-10-11] MEDS: DOBUTamine drip 500 MG/250 ML PREMIX 8.8 MG IV (22:40)
[2020-10-11] MEDS: DOBUTamine drip 500 MG/250 ML PREMIX 18 MG (22:47)
[2020-10-11] MEDS: rocuronium 10 mg/mL INJ 5mL 70 MG IV (22:48)
[2020-10-11 22:51] LABS: Basophils % 0.4 %; Hematocrit 38.3 % (37.0-47.0); Hemoglobin 11.5 g/dL (11.5-15.3); Lymphocytes # 1.7 10^3/uL (0.8-4.8); Lymphocytes % 17.9 %; Mean Corpuscular Hemoglobin 31.3 pg (28.0-34.0); Mean Corpuscular Volume 104.1 fL (81-99); Mean Platelet Volume 11.1 fL (7.4-10.4); Monocytes # 0.9 10^3/uL (0.2-0.9); Monocytes % 9.7 %; Neutrophils # 6.61 10^3/uL (1.8-7.7); Nucleated Red Blood Cells # 0.1 /100WBC; Nucleated Red Blood Cells % 0.8 %; Platelet Count 225 10^3/cmm (130-400); Red Blood Count 3.68 10^6/uL (4.1-5.3); Red Cell Distribution Width 17.7 % (12.1-15.1); White Blood Count 9.5 10^3/uL (4.0-10.0)
[2020-10-11] MEDS: calcium gluconate 0.1 gm/mL 10% SDV 10mL 1 GM IVP (22:56)
[2020-10-11 23:04] LABS: Albumin Level 3.2 g/dL (3.5-5.2); Alkaline Phosphatase 125 IU/L (35-105); Blood Urea Nitrogen 25 mg/dL (8-23); Calcium 10.3 mg/dL (8.5-10.5); Carbon Dioxide 14 mmol/L (22-29); Chloride 102 mmol/L (98-107); Globulin 3.2 g/dL (1.3-4.6); Glomerular Filtration Rate 49.5 mL/min (90-130); Glucose 48 mg/dL (65-115); Osmolality Calculated 284 mOsm/kg (285-295); Sodium 136 mmol/L (136-145); Total Protein 6.4 g/dL (6.6-8.7)
[2020-10-11] MEDS: dextrose 50% syringe 50 mL IVP ×3 (23:05→23:29)
[2020-10-11 23:07] LABS: Anion Gap 26.2 (5-19); Potassium 6.2 mmol/L (3.5-5.1)
[2020-10-11 23:08] LABS: Lactic Sepsis W/Reflex 9.9 mmol/L (0.5-2.2)
[2020-10-11 23:16] LABS: Alanine Aminotransferase 1474 U/L (0-33)
[2020-10-11 23:18] LABS: Aspartate Amino Transferase 2713 U/L (0-32)
[2020-10-11 23:19] LABS: Magnesium 6.8 mg/dL (1.7-2.3)
--- NOTE | 2020-10-11 23:21 | PC.NURSE ---
Critical labs of Lactic 9.9, Mag 6.8, K+ 6.2 reported verbally to MD Ronak at bedside.
--- NOTE | 2020-10-11 23:23 | ECG_ITS ---
[facility] ED Test Date: 2020-10-11 Pat Name: Clementina Mcghee Department: Room: ICU11 Gender: Female Form Layer: SAM ZEPEDA: 1955 Requested By: Adelaida Simons Order Number: [id number] Andrea MD: Khushboo Dalton M.D. Measurements Intervals [place] Rate: 72 P: 258 [place]: 233 QRS: -55 QRSD: 225 T: 93 QT: 506 QTc: 558 Interpretive Statements ECTOPIC ATRIAL RHYTHM WITH FIRST DEGREE AV BLOCK MARKED LEFT AXIS DEVIATION [QRS AXIS < -30] LEFT BUNDLE BRANCH BLOCK Compared to ECG 10/11/2020 09:38:36 Ectopic atrial rhythm now present First degree AV block now present Left-axis deviation now present Sinus rhythm no longer present Electronically Signed On 10-15-2020 22:32:29 CDT by Khushboo Dalton M.D. [email or web address]
[2020-10-11] MEDS: FUROsemide 10 mg/mL SDV 2mL 20 MG IVP (23:31)
[2020-10-11] MEDS: sodium bicarbonate 150 MEQ in dextrose 5% 1,000 ML 100 MEQ IV (23:32)
--- NOTE | 2020-10-11 23:45 | PC.ADMIT ---
715 CR 296 Admission Note: The patient,Clementina Mcghee,65 y/o, was given written information regarding hospital policies, unit procedures and contact persons. Patient's smoking status: former smoker. Vital Signs - 8 hr 10/11/20 16:35 10/11/20 17:43 10/11/20 18:46 Pulse Rate 97 97 99 Respiratory Rate 20 H 20 H 20 H Blood Pressure 116/73 117/75 113/81 Pulse Oximetry 99 96 10/11/20 19:00 10/11/20 20:48 10/11/20 21:53 Pulse Rate 95 90 145 H Respiratory Rate 20 H 19 H 42 H Blood Pressure 114/75 70/34 Pulse Oximetry 92 93 10/11/20 23:36 Pulse Rate Respiratory Rate 14 Blood Pressure Pulse Oximetry 92
--- NOTE | 2020-10-11 23:45 | PC.NURSE ---
2219 Pt received to ICU bed 11. on Bipap mottled extremities noted, Dr. Simons at bedside Medications given per physician orders. Code Blue called at 2220 INtubated ETT 8.0/ CPR inititated see Code Blue sheet for details. 2230 Femoral pulse present. Code Ended 2239 attempted a-line insertion physician at bedside unsuccesfull 2307 glucose low gave dextrose see sep 2309 inserted OGT CXR doneadvancemet of ETT per RT at bedside Physician present
[2020-10-12] VITALS (97 sets, daily range): BP systolic 91–148; BP diastolic 52–88; PULSE 50–91; RESP 14–20; TEMP 32.4–36.5; O2SAT 79–100
[2020-10-12] MEDS: insulin regular-human 10 UNIT in SYRINGE 1 EACH IVP (00:13)
--- NOTE | 2020-10-12 00:13 | PC.NURSE ---
10u given IVP per Dr. Hills orders. Order on SEP shows as a drip. Continue care.
[2020-10-12] MEDS: piperacillin-tazobactam 3.375 GM in sodium chloride 0.9% (plus) 50 ML IV ×4 (00:15→20:11)
[2020-10-12] MEDS: sodium polystyrene sulfonate 15 gm/60 mL Btl 30 GM PR (00:30)
[2020-10-12 00:35] LABS: Reflex Lactate Order REFLEX LACTIC ORDERD
[2020-10-12 01:15] LABS: ABG PH Result 7.11 (7.35-7.45); Alveolar-Arterial Oxygen Gradi 37.1 mmHg (5-10); Arterial Blood Gas Hematocrit 32.4 % (37-47); Base Excess ABG -11.6 mmol/L (-2.0-2.0); Blood Gas Operator Identificat JB; Blood Gas Sample Site Femoral, right; Blood Gas Sample Type Arterial; Carboxyhemoglobin 0.7 %THgb (0.4-20.1); HCO3 ABG 17.9 mmol/L (22-26); HGB O2 Sat 97.8 % (95-100); Ionized Calcium Level - ABG 1.3 mmol/L (1.1-1.4); Methemoglobin 1.4 % (0.4-1.5); Oxygen Device VENT; Oxygen Saturation ABG 99.9; Potassium Level - ABG 4.1 mmol/L (3.5-5.0); Total Hemoglobin 10.6 g/dL (12-16)
--- NOTE | 2020-10-12 01:15 | PM.EVENT ---
Event Note Event Note: I was called by the nurse to evaluate the patient at the bedside for worsening hypoxia. When I entered the room patient was in tripod position, O2 saturation 70% on nonrebreather mask, she was quickly transitioned to BiPAP settings 20/10 Her systolic blood pressure was in low 70s, patient gave consent for intubation central line placement arterial line placement and she was made aware that she is at risk of cardiac arrest, she told us that her son should be notified his name is Renzo. Chart review revealed that she has history of A. fib with left bundle branch block, chest x-ray reveals pneumonia, her lactic acid was 6 for which she was getting normal saline bolus I quickly transitiONED the patient to ICU while she was on BiPAP She was moved to ICU bed 11, I called the ICU before the transfer to arrange Levophed and prepare for intubation and arrange code cart In the ICU she was started on Levophed, she was kept on BiPAP to improve her hypoxia Once her O2 saturation was between 90 to 95% and systolic blood pressure 116/70 mmHg on Levophed, she was given etomidate 15 mg along with 70MG rocuronium for her weight of 60 kg, as soon as we removeD her BiPAP mask to insert GLeidoscope, she immediately went into wide-complex tachycardia and lost her pulse, I was able to intubate her on first attempt without interrupting chest compressions, before we could shocked her we were able to gain ROSC, she had good bilateral breath sounds, end-tidal CO2 color change was detected, Levophed was started at highest possible dose, shortly after within 5 minutes, she went into pulseless V. tach again, chest compression wERE resumed immediately, she was given 200 J, chest compression was resumed immediately afterwards she was given epi, calcium gluconate, mag sulfate 2 g, we were able to gain ROSC, Her new set of vitals reviewed O2 saturation 80% which improved with Ambu bag to 100% Her blood pressure was 100-115MMHG, dobutamine was added to Levophed for her presentation of cardiac shock Chest x-ray revealed worsening from edema with dense consolidation bilaterally, endotracheal tube was advanced, chest x-ray revealed appropriate position of endotracheal tube, OG tube was placed as well, HER Conn catheter is draining concentrated urine ABG revealed severe metabolic acidosis with worsening of hypercapnia, I have increased her tidal volume from 350 TO 500, for hypeR toxemia I have decreased her FiO2 to 80% with PEEP down from 10-8, her pulse ox saturation does not correlate with her ABG Plan After 15 minutes of ACLS, her pupils were slightly reactive to light, no meaningful neurological recovery appreciated at the bedside Start hypothermia protocol Obtain labs every 4 hours including magnesium, phosphorus Blood sugar check every 4 hours For hyperkalemia she was given 10 units of regular insulin, 10 mg of albuterol, bicarb was initiated for severe metabolic acidosis, she was also given Kayexalate via OGT We will start her on vecuronium for neuromuscular blockade For sedation would use midazolam For analgesia use fentanyl Acetaminophen 650 via OG not to exceed 3 g in 24 hours Repeat EKG did not reveal [place] it is consistent with A. fib left bundle branch block white complex rhythm
--- NOTE | 2020-10-12 01:16 | PC.NURSE ---
222 Pt received to ICU bed 11. on Bipap mottled extremities noted, Dr. Simons at bedside Medications given per physician orders. Code Blue called at 2220 INtubated ETT 8.0/ CPR inititated see Code Blue sheet for details. 2230 Femoral pulse present. Code Ended 2239 attempted a-line insertion physician at bedside unsuccesfull 2307 glucose low gave dextrose see sep 2309 inserted OGT CXR done advancemet of ETT per RT at bedside Physician present [address] Simons [address] Simons at bedside results given
--- NOTE | 2020-10-12 01:57 | PM.ACPR ---
Acute Procedures Intubation: Time out performed: Yes Sedative: etomidate Mg given: 15 Paralytic: rocuronium Mg given: 70 Laryngoscope: fiber optic video scope Assist device used: fiber optic device ET tube size: 8 Tube secured depth (cm): 26 Tube secured location: lips Tube placement confirmation: visualized tube passing through cords, equal breath sounds bilaterally, no breath sounds over epigastrium, confirmation by capnometry and color change noted Patient tolerated procedure: well Intubation complications: none Additional comments: This intubation was done while chest compression was going on for ACLS code, chest compression was not interrupted for intubation Endotracheal tube was passed on first attempt using glide scope Color change detected Bilateral breath sounds intact Endotracheal tube placement is satisfactory on chest x-ray
[2020-10-12 02:14] LABS: Potassium 3.9 mmol/L (3.5-5.1)
[2020-10-12 02:20] LABS: Lactic Acid level (Lactate) 8.3 mmol/L (0.5-2.2)
[2020-10-12 02:26] LABS: Magnesium 3.1 mg/dL (1.7-2.3)
[2020-10-12] MEDS: enoxaparin 60 mg/0.6 mL Syringe SUBCUT (02:48)
[2020-10-12 02:59] LABS: Glucose Point of Care 56 mg/dL (70-110)
[2020-10-12 02:59] LABS: Glucose Point of Care 279 mg/dL (70-110)
[2020-10-12 02:59] LABS: Glucose Point of Care 265 mg/dL (70-110)
[2020-10-12 02:59] LABS: Glucose Point of Care 42 mg/dL (70-110)
[2020-10-12 02:59] LABS: Glucose Point of Care 44 mg/dL (70-110)
--- NOTE | 2020-10-12 03:47 | PM.ACPR ---
Procedure/Consent Time out: Time Out Performed: Yes Consent: Consent for Procedure: Emergency procedure Procedure Narrative: Central line placement by Dr. Estrada ER physician After sterile dressing and prepped triple-lumen catheter was placed by Dr. Estrada, left femoral vein was accessed on second attempt using Seldinger technique under ultrasound guidance, there was very mild resistance that was felt by Dr. Estrada when he was passing guidewire, however guidewire was passed and retracted without any complications, good venous return was obtained in all 3 ports Estimated blood loss 15 to 20 mL Site secured with sterile dressing both femoral arteries were also accessed for arterial line placement by Dr. Estrada however because of resistance procedure was aborted, estimated blood loss 20-30 mL Acute Procedures Epistaxis Control: Time out performed: Yes
--- NOTE | 2020-10-12 03:54 | USCV_ITS ---
Clementina Mcghee Age: 65 Gender: F : 1955 Exam Date: 10/12/2020 06:26 Ordering Phys: Adelaida Simons MD Technologist: Dagoberto Salas [place] [facility] [place] VENT BP: 136 / 90 HR: 73 Rhythm: Sinus Technical Quality: Suboptimal MEASUREMENTS (Male / Female) Normal Values 2D ECHO LV Diastolic Diameter PLAX 4.3 cm 4.2 - 5.9 / 3.9 - 5.3 cm LV Systolic Diameter PLAX 3.9 cm IVS Diastolic Thickness 0.9 cm 0.6 - 1.0 / 0.6 - 0.9 cm IVS Systolic Thickness 1.5 cm LVPW Diastolic Thickness 1.1 cm 0.6 - 1.0 / 0.6 - 0.9 cm LVPW Systolic Thickness 1.5 cm LVOT Diameter 2.1 cm LV Ejection Fraction 2D Teich 21.1 % LV Ejection Fraction MOD 2C 35.2 % LV Ejection Fraction 2C AL 38.5 % LA Diameter 3.6 cm LA Width 4.1 cm LA Height 5.2 cm RA Width 4.8 cm RA Height 4.5 cm M-MODE LV Diastolic Diameter MM 4.9 cm 4.2 - 5.9 / 3.9 - 5.3 cm LV Systolic Diameter MM 3.9 cm LV Ejection Fraction MM Teich 43.1 % IVS Diastolic Thickness MM 1.0 cm 0.6 - 1.0 / 0.6 - 0.9 cm IVS Systolic Thickness MM 1.0 cm LVPW Diastolic Thickness MM 1.2 cm 0.6 - 1.0 / 0.6 - 0.9 cm LVPW Systolic Thickness MM 1.7 cm RV Diastolic Diameter MM 1.4 cm Aortic Annulus Diameter 3.3 cm LA Ao Ratio MM 1.0 MV E Point Septal Separation 1.4 cm DOPPLER AV Peak Velocity 170.0 cm/s LVOT Peak Velocity 100.0 cm/s AV Area Cont Eq vti 2.4 cm squared AV Area Cont Eq pk 2.0 cm squared MV Area PHT 4.8 cm squared Mitral E to A Ratio 3.2 MV E' Velocity 90.5 cm/s Mitral E to MV E' Ratio 25.3 Mitral E to LV E' Lateral Ratio 24.2 Mitral E to LV E' Septal Ratio 26.4 TR Peak Velocity 238.2 cm/s TR Peak Gradient 22.7 mmHg TV Peak E Velocity 69.0 cm/s Right Atrial Pressure 3.0 mmHg Pulmonary Artery Systolic Pressu 25.7 mmHg PV Peak Velocity 46.0 cm/s FINDINGS Left Ventricle Normal left ventricular size. LV systolic function is severely reduced with EF of 15-20%.Severe global hypokinesis is seen. Diastolic function is indeterminate Right Ventricle The right ventricle is normal in size and has severely reduced function Right Atrium The right atrium is normal in size. Left Atrium The left atrium is enlarged Mitral Valve Moderate mitral annular calcification without significant stenosis or prolapse. There is mild to moderate mitral regurgitation. Aortic Valve Structurally normal aortic valve without significant sclerosis or stenosis. There is mild aortic regurgitation. Tricuspid Valve Structurally normal tricuspid valve without significant stenosis or regurgitation. Insufficient TR jet to calculate RVSP Pulmonic Valve Grossly normal Pericardium Normal pericardium without effusion. Aorta Normal ascending aorta dimension. CONCLUSIONS LV systolic function is severely reduced with EF of 15-20%. Severe global hypokinesis Diastolic function is indeterminate Mild to moderate mitral regurgitation and mild aortic regurgitation noted Compared to prior echocardiogram from 01/16/2020, no significant changes are noted Con Hdez MD (Electronically Signed) Final Date: 12 October 2020 14:48 S
--- NOTE | 2020-10-12 04:00 | XRR_ITS ---
PROCEDURE INFORMATION: Exam: XR Chest Exam date and time: 10/12/2020 5:11 AM Age: 65 years old Clinical indication: Device placement; Ett placement (vent status); Prior surgery; Surgery type: Valve, stents; Additional info: Intubated and hpoxic TECHNIQUE: Imaging protocol: XR of the chest Views: 1 view. COMPARISON: CR XR chest 1V portable [id number] 10/11/2020 11:00 PM FINDINGS: Tubes, catheters and devices: An endotracheal tube is present with the about 3.4 cm above the rafaela. Nasogastric tube extends into the stomach. Lungs: Bilateral pulmonary infiltrates are present which have not significantly changed since the previous radiograph. Pleural spaces: The left costophrenic angle is blunted consistent with small effusion. Heart/Mediastinum: The cardiac silhouette is enlarged but unchanged. The patient has undergone mitral valve replacement. Bones/joints: Unremarkable. XR/XR chest 1V portable [id number] IMPRESSION: 1. The tip of the endotracheal tube is 3.4 cm above the rafaela. 2. Stable bilateral pulmonary infiltrates and small left effusion.
[2020-10-12 04:02] LABS: Basophils % 0.2 %; Hematocrit 31.1 % (37.0-47.0); Hemoglobin 9.3 g/dL (11.5-15.3); Lymphocytes # 0.3 10^3/uL (0.8-4.8); Lymphocytes % 1.8 %; Mean Corpuscular HGB Conc 29.9 g/dL (30.0-36.0); Mean Corpuscular Hemoglobin 31.1 pg (28.0-34.0); Mean Platelet Volume 10.7 fL (7.4-10.4); Monocytes # 0.6 10^3/uL (0.2-0.9); Neutrophils # 13.14 10^3/uL (1.8-7.7); Nucleated Red Blood Cells # 0.1 /100WBC; Nucleated Red Blood Cells % 0.5 %; Platelet Count 248 10^3/cmm (130-400); Red Blood Count 2.99 10^6/uL (4.1-5.3); Red Cell Distribution Width 17.5 % (12.1-15.1); White Blood Count 14.1 10^3/uL (4.0-10.0)
[2020-10-12 04:15] LABS: Chloride 102 mmol/L (98-107); Potassium 4.5 mmol/L (3.5-5.1); Sodium 138 mmol/L (136-145)
[2020-10-12 04:37] LABS: Lactate (Lactic Acid level) 6.7 mmol/L (0.5-2.2)
[2020-10-12 04:38] LABS: ABG PCO2 46.1 mmHg (35-45); ABG PH Result 7.31 (7.35-7.45); Base Excess ABG -3.1 mmol/L (-2.0-2.0); Blood Gas Operator Identificat JB; Blood Gas Sample Site Brachial, right; Blood Gas Sample Type Arterial; HCO3 ABG 23.2 mmol/L (22-26); Oxygen Device VENT
[2020-10-12 04:38] LABS: Albumin Level 2.8 g/dL (3.5-5.2); Alkaline Phosphatase 120 IU/L (35-105); Anion Gap 19.5 (5-19); Blood Urea Nitrogen 27 mg/dL (8-23); Calcium 8.7 mg/dL (8.5-10.5); Carbon Dioxide 21 mmol/L (22-29); Globulin 3.3 g/dL (1.3-4.6); Glomerular Filtration Rate 40.9 mL/min (90-130); Glucose 330 mg/dL (65-115); Magnesium 2.9 mg/dL (1.7-2.3); Osmolality Calculated 304 mOsm/kg (285-295); Phosphorus 5.4 mg/dL (2.5-4.5); Total Protein 6.1 g/dL (6.6-8.7)
[2020-10-12 04:49] LABS: Alanine Aminotransferase 2904 U/L (0-33)
[2020-10-12 04:54] LABS: Aspartate Amino Transferase 5816 U/L (0-32)
--- NOTE | 2020-10-12 04:56 | PC.NURSE ---
0400 central line to left femoral vein per Dr. Estrada 0430 placed on cooling blanket per physician order rectal temp probe in use cooling pt Temp 96.8 target range 32-34C ..Discussed orders with Dr. Simons proceed with cooling pt
[2020-10-12 05:13] LABS: INR 9.65 (0.8-1.2)
[2020-10-12 05:58] LABS: Troponin T (5th) Once 94 ng/L (0-10)
--- NOTE | 2020-10-12 07:05 | PC.NURSE ---
0445 Dr. Simons notified INR 9.65 no orders given
--- NOTE | 2020-10-12 08:00 | PC.NURSE ---
SCD not available at this time.
[2020-10-12] MEDS: ipratropium-albuterol 3 mL Neb INHALATION ×3 (08:04→20:18)
[2020-10-12 08:44] LABS: Basophils % 0.2 %; Hematocrit 30.2 % (37.0-47.0); Hemoglobin 9.3 g/dL (11.5-15.3); Lymphocytes # 0.3 10^3/uL (0.8-4.8); Lymphocytes % 2.1 %; Mean Corpuscular HGB Conc 30.8 g/dL (30.0-36.0); Mean Corpuscular Hemoglobin 31.2 pg (28.0-34.0); Mean Corpuscular Volume 101.3 fL (81-99); Mean Platelet Volume 11.3 fL (7.4-10.4); Monocytes # 0.3 10^3/uL (0.2-0.9); Neutrophils # 14.17 10^3/uL (1.8-7.7); Neutrophils % 95.1 %; Nucleated Red Blood Cells # 0.1 /100WBC; Nucleated Red Blood Cells % 0.5 %; Platelet Count 215 10^3/cmm (130-400); Red Blood Count 2.98 10^6/uL (4.1-5.3); Red Cell Distribution Width 17.3 % (12.1-15.1); White Blood Count 14.9 10^3/uL (4.0-10.0)
[2020-10-12 08:53] LABS: Albumin Level 2.8 g/dL (3.5-5.2); Alkaline Phosphatase 123 IU/L (35-105); Blood Urea Nitrogen 30 mg/dL (8-23); Calcium 8.3 mg/dL (8.5-10.5); Carbon Dioxide 25 mmol/L (22-29); Chloride 92 mmol/L (98-107); Globulin 2.9 g/dL (1.3-4.6); Glomerular Filtration Rate 44.8 mL/min (90-130); Glucose 371 mg/dL (65-115); Osmolality Calculated 291 mOsm/kg (285-295); Phosphorus 4.8 mg/dL (2.5-4.5); Sodium 130 mmol/L (136-145); Total Bilirubin 0.9 mg/dL (0.15-1.2); Total Protein 5.7 g/dL (6.6-8.7)
--- NOTE | 2020-10-12 08:54 | ECG_ITS ---
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 Measurements Intervals [place] Rate: 60 P: 255 MT: 266 QRS: -37 QRSD: 218 T: 142 QT: 582 QTc: 586 Interpretive Statements ECTOPIC ATRIAL RHYTHM WITH FIRST DEGREE AV BLOCK MARKED LEFT AXIS DEVIATION [QRS AXIS < -30] LEFT BUNDLE BRANCH BLOCK [120+ ms QRS DURATION, 80+ ms Q/S IN V1/V2, 85+ ms R IN I/aVL/V5/V6] WARNING: DATA QUALITY MAY AFFECT INTERPRETATION Compared to ECG 10/11/2020 23:30:08 Left bundle-branch block now present Intraventricular conduction delay no longer present Electronically Signed On 10-13-2020 1:12:13 CDT by Neema Barillas M.D. [id number]
[2020-10-12 08:55] LABS: Anion Gap 16.7 (5-19); Potassium 3.7 mmol/L (3.5-5.1)
[2020-10-12 09:04] LABS: Alanine Aminotransferase 4151 U/L (0-33)
[2020-10-12 09:16] LABS: Troponin(5th) Baseline 112 ng/L (0-10)
[2020-10-12 09:16] LABS: Lactate (Lactic Acid level) 4.8 mmol/L (0.5-2.2)
--- NOTE | 2020-10-12 09:46 | PM.ACPR ---
Procedure/Consent Time out: Time Out Performed: Yes Consent: Consent for Procedure: Emergency procedure Procedure Narrative: Name of the procedure: Right femoral ultrasound-guided arterial catheter placement. Medications: Fentanyl and Versed drip Description of the procedure: The procedures performed due to emergency. The site was prepared using sterile technique. The right femoral artery was identified under ultrasound guidance from pulsatility. Under ultrasound guidance the introducer needle was advanced till flash back was noted. Pulsatile bright red blood was noted. Using Seldinger technique the left radial arterial line was inserted. The catheter was secured with 2-0 silk suture and transparent dressing. Blood loss: 2 mL. Complications: None. Acute Procedures Epistaxis Control: Time out performed: Yes
[2020-10-12 09:54] LABS: Aspartate Amino Transferase 10334 U/L (0-32)
[2020-10-12] MEDS: famotidine 20 mg/2 mL INJ IVP (10:01)
[2020-10-12] MEDS: hydrocortisone 100 mg/2 mL SDV 50 MG IVP ×3 (10:01→20:10)
[2020-10-12] MEDS: pantoprazole 40 mg SDV IVP ×2 (10:24→21:52)
[2020-10-12] MEDS: FUROsemide 10 mg/mL SDV 4mL 60 MG IVP (10:25)
[2020-10-12] MEDS: vancomycin 750 MG in sodium chloride 0.9% 250 ML 250 MG IV (10:29)
--- NOTE | 2020-10-12 10:54 | ECG_ITS ---
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 Measurements Intervals [place] Rate: 50 P: 232 [place]: 264 QRS: -36 QRSD: 226 T: 161 QT: 674 QTc: 616 Interpretive Statements SINUS BRADYCARDIA WITH FIRST DEGREE AV BLOCK MARKED LEFT AXIS DEVIATION [QRS AXIS < -30] LEFT BUNDLE BRANCH BLOCK [120+ ms QRS DURATION, 80+ ms Q/S IN V1/V2, 85+ ms R IN I/aVL/V5/V6] Compared to ECG 10/12/2020 09:11:17 Ectopic atrial rhythm no longer present Electronically Signed On 10-13-2020 1:14:53 CDT by Neema Barillas M.D. [id number]
[2020-10-12 11:04] LABS: Fibrinogen 313 mg/dL (174-498)
[2020-10-12 11:14] LABS: D Dimer 11.42 ug/mIFEU (0-0.59)
[2020-10-12 11:14] LABS: Troponin 5 2HR 107.2 ng/L (0-10); Troponin 5 2HR Delta -4.8 ABS# (0-10)
[2020-10-12 11:20] LABS: INR 15.58 (0.8-1.2)
--- NOTE | 2020-10-12 11:43 | P.CONIM_ITS ---
Providers/Reason For Consult Consulting Physican/Specialty*: Pulmonary critical care medicine Reason for Consult*: Status post cardiac arrest with multiorgan failure Attending Physician: Can Nixon MD Primary Care Provider: JUSTIN Mccollum History of Present Illness History of Present Illness Clementina Mcghee is a 65 year old female with a complicated past medical history. Her past medical history includes nonobstructive coronary artery disease. Heart failure with reduced ejection fraction with an ejection fraction of 28%. She also has atrial fibrillation, anticoagulated with Coumadin. Moderate aortic valve regurgitation, peripheral arterial disease, stenosis of the left subclavian artery status post stent. The patient was hospitalized in August 2020 after sustaining a fall at which time she had ruptured spleen and diaphragmatic rupture for which she was foley sferred to [place]. The patient was admitted again to the hospital in September 2020. The etiology of admission at that time was encephalopathy. The patient presents to the hospital on October 11, 2020 with fatigue weakness for 3 days as well as nausea vomiting. In the emergency department, the patient was treated with 500 cc fluid bolus. She also received Zofran. Apparently, initially the patient had felt better however then she did not and the decision was to admit the patient. The initial EKG revealed sinus rhythm with left bundle branch block which is not new for this patient. The initial 2 troponins were negative. Her chest x-ray revealed bilateral interstitial opacities. There is no leukocytosis on admission. Her hemoglobin was 11.9. Her MCV is 107. Platelet count was 250. Admission chemistry revealed a sodium of 134, potassium 5.1, chloride 99 and bicarb of 20. The anion gap was 15. BUN 21 creatinine 0.8. There is mild elevation of the liver enzymes with ALT of 160, AST of 239 and alk phos of 130. Her C-reactive protein was elevated and her N- terminal proBNP was 17,000. Lactic acid level at 8:16 PM on October 11 was 6.8. The patient had a CT scan of the abdomen and pelvis. She was diagnosed with bilateral pyelonephritis. Cholelithiasis and nonspecific thickening of the gallbladder wall without any surrounding inflammatory changes. Small bilateral pleural effusion with fibrotic changes in the lungs are noted. CT scan of the head did not reveal any acute abnormalities. After admission to the hospital, overnight the patient became more hypoxic and hypotensive. She was eventually transferred to ICU. The patient was started on norepinephrine. During intubation the patient went into wide-complex tachycardia. I wonder whether this was pulseless electrical activity. As the patient has pre-existing bundle branch block that could have been perceived as wide-complex tachycardia. Apparently, the patient had ROSC prior to any defibrillation. 5 minutes after the initial ROSC, the patient went into cardiac arrest again. Again this was reported as V. tach. The reported cardiac arrest time was 15 minutes. The patient was started on targeted temperature management. A central line was obtained in the left femoral vein. An A-line could not be obtained after multiple attempts in the right femoral artery. Post code the patient had severe metabolic acidosis secondary to lactic acidosis. The patient was treated for hyperkalemia and metabolic acidosis. Post cardiac arrest EKG was consistent with sinus bradycardia with first-degree AV block as well as left bundle branch block. I was asked to evaluate the patient post cardiac arrest with multiorgan failure. The patient was seen and examined in the ICU. She was unresponsive. A bedside ultrasound revealed an ejection fraction likely less than 15%. Dilated IVC and hepatic veins. Bilateral B-lines on lung ultrasound. Repeat chest x-ray post intubation revealed bilateral interstitial opacities in addition right upper and midlung zone consolidation with air bronchograms. The patient was on Levophed and dobutamine. She is also on amiodarone drip and getting bicarb drip at 100 cc an hour. Review of Systems Narrative: Unable to obtain Meds/Allergies Home Medications and Allergies Home Medications Medication Instructions Recorded Confirmed Last Taken Type ascorbate calcium (vitamin C) 500 1 gm PO DAILY@07 tab 08/29/19 10/11/20 10/10/20 History mg tablet INR #1 ea 03/23/20 10/11/20 Unknown Rx nitroglycerin 0.4 mg sublingual 0.4 mg SUBLINGUAL Q5M PRN #30 tab 04/02/20 10/11/20 Unknown Rx tablet ranolazine 500 mg tablet,extended 500 mg PO Q12H #180 tab 06/02/20 10/11/20 10/10/20 Rx release,12 hr amiodarone [Pacerone] 200 mg PO DAILY@07 06/23/20 10/11/20 10/10/20 History citalopram 10 mg PO DAILY@06/23/20 10/11/20 10/10/20 History lisinopril 5 mg PO DAILY@07 06/23/20 10/11/20 10/10/20 History simvastatin 40 mg PO DAILY@06/23/20 10/11/20 10/10/20 History isosorbide mononitrate 30 mg 30 mg PO DAILY@07 #90 tab 06/25/20 10/11/20 10/10/20 Rx tablet,extended release 24 hr tiotropium bromide 2.5 See Rx Instructions .ROUTE 06/25/20 10/11/20 10/10/20 Rx mcg/actuation mist for inhalation .COMPLEX #4 g prednisone 1 mg tablet See Rx Instructions PO DAILY #200 07/29/20 10/11/20 10/10/20 Rx tab hydroxychloroquine 200 mg PO BID@0700,1900 08/13/20 10/11/20 10/10/20 History melatonin 10 mg PO BEDTIME@2200 PRN 08/13/20 10/11/20 10/10/20 History potassium chloride 20 meq PO TID@07,,08/13/20 10/11/20 10/10/20 History cyclobenzaprine 10 mg tablet 10 mg PO TID PRN #30 tab 08/21/20 10/11/20 Unknown Rx tramadol 50 mg tablet 50 mg PO TID PRN #30 tab 08/21/20 10/11/20 Unknown Rx mupirocin 1 applic TOPICAL TID@07,,08/27/20 10/11/20 08/27/20 History metoprolol succinate 25 mg See Rx Instructions PO .COMPLEX 09/23/20 10/11/20 10/10/20 History tablet,extended release 24 hr albuterol sulfate 90 mcg/actuation 2 puff INHALATION QID PRN #8.5 g 09/30/20 10/11/20 Unknown Rx aerosol inhaler lemborexant 5 mg tablet 5 mg PO BEDTIME@2200 #30 tab 09/30/20 10/11/20 10/10/20 Rx furosemide 40 mg PO BID@07,10/11/20 10/11/20 10/10/20 History warfarin 2 mg PO DAILY 10/11/20 10/11/20 10/10/20 History Allergies Allergy/AdvReac Type Severity Reaction Status Date / Time No Known Allergies Allergy Verified 09/23/20 10:54 Current Medications Current Medications Generic Name Dose Route Start Last Admin Trade Name Freq PRN Reason Stop Dose Admin Albuterol/Ipratropium 3 ml 10/11/20 22:41 10/12/20 08:04 Ipratropium-Albuterol 3 Ml Neb INHALATION 3 ml Q4H PRN Administration SHORTNESS OF BREATH Enoxaparin Sodium 60 mg 10/12/20 02:00 10/12/20 02:48 Enoxaparin 60 Mg/0.6 Ml Syringe SUBCUT 60 mg Q12H SREEDHAR Administration Hydrocortisone Sodium Succinate 50 mg 10/12/20 09:00 10/12/20 10:01 Hydrocortisone 100 Mg/2 Ml Sdv IVP 50 mg Q6H SREEDHAR Administration Piperacillin Sod/Tazobactam 50 mls @ 12.5 mls/hr 10/11/20 19:59 10/12/20 10:00 Sod 3.375 gm/ Sodium Chloride IV 12.5 mls/hr Q8H SREEDHAR Administration Protocol Norepinephrine Bitartrate 4 mg 254 mls @ 0 mls/hr 10/11/20 22:00 10/12/20 06:37 / Dextrose IV 0 mcg/min .Q0M SREEDHAR 0 mls/hr Titration Protocol Per Protocol Midazolam HCl 100 mg/ Sodium 100 mls @ 0 mls/hr 10/11/20 22:45 10/12/20 04:29 Chloride IV 2 mg/hr .Q0M SREEDHAR 2 mls/hr Administration Protocol Per Protocol Fentanyl 1,000 mcg/ Sodium 100 mls @ 0 mls/hr 10/11/20 22:45 10/12/20 05:39 Chloride IV 75 mcg/hr .Q0M SREEDHAR 7.5 mls/hr Titration Protocol Per Protocol Amiodarone HCl 900 mg/ 518 mls @ 0 mls/hr 10/12/20 04:00 10/12/20 05:25 Dextrose/ IV Miscellaneous IV 1 mg/min Supplies .Q0M SREEDHAR 34.5 mls/hr Administration Protocol Per Protocol Vancomycin HCl 750 mg/ Sodium 250 mls @ 250 mls/hr 10/12/20 10:30 10/12/20 10:29 Chloride IV 250 mls/hr Q24H SREEDHAR Administration Protocol Pantoprazole Sodium 40 mg 10/12/20 10:00 10/12/20 10:24 Pantoprazole 40 Mg Sdv IVP 40 mg Q12H SREEDHAR Administration PFSH Acute PFSH: Medical History Anticoagulated on warfarin ASHD (arteriosclerotic heart disease) Atrial flutter CHF (congestive heart failure) COPD (chronic obstructive pulmonary disease) Depression Emphysema lung Fall Hyperlipidemia Hypertension Multiple rib fractures Osteoporosis Polymyalgia rheumatica PVD (peripheral vascular disease) Rheumatoid arthritis Surgical History Diaphragm, rupture H/O splenectomy Hx of coronary angioplasty Hx of hysterectomy Hx of mitral valve repair Hx of sinus surgery Hx of tonsillectomy Family History Family/Other Diabetes Cancer Heart disease Katja-Danlos syndrome type VIII Social History Smoking and tobacco status: former smoker Second hand smoke exposure: No Alcohol intake: never Substance/Drug Use: never Lives independently: Yes Household members: other Details: Son Marital status: / Current occupational status: retired History of recent travel: No Current gender identity: Female Vitals/I&O/Wt Last Vital Signs Temp 95 F L 10/12/20 06:22 Pulse 66 10/12/20 08:15 Resp 14 10/12/20 11:06 BP 118/70 10/12/20 05:00 Pulse Ox 100 10/12/20 11:06 10/11/20 10/12/20 10/12/20 22:59 06:59 14:59 Intake Total 550 / 550 253.554 / 803.554 Output Total 300 / 300 Balance 550 / 550 -46.446 / 503.554 Weight last 48 hrs Weight 135 lb 3.2 oz Weight 130 lb Physical Exam Narrative: EXAM NARRATIVE: General: The patient is intubated and sedated HEENT: Nonreactive fixed pupil but not dilated Respiratory: Auscultation: Bilateral crackles, no wheezing or rhonchi Cardiovascular: Regular rate and rhythm, S1-S2 present, soft heart sound, no peripheral edema Abdomen: Soft, nondistended, absent bowel sound Neuro: Unable to assess Urinary Catheter Management^: Conn: Cath Placed During This Visit: yes Reason for Continuing Indwelling Catheter: Accurate Measurement of Urinary Output in Critically Ill Patients Urinary Catheter Date of Insertion: 10/11/20 Urinary Catheter Time of Insertion: 23:00 Data Micro: Micro: Microbiology 10/11/20 20:20 Blood Culture - Pr eliminary Blood SPECIMEN [facility] 10/11/20 20:16 Blood Culture - Pr eliminary Blood SPECIMEN [facility] Other Data: Attestation for Other Data: I personally reviewed and interpreted the following: Other data: I have reviewed the patient's laboratory, micr obiologic and radiologic data. The patient has developed leukocytosis following the cardiac arrest. She has mild hyponatremia, however if corrected for blood sugar there is no hyponatremia. The patient is having worsening acute kidney injury with worsening of BUN and creatinine values. Please see the HPI for detail description of the radiologic data. The patient has supratherapeutic INR, elevated LFTs. A&P Assessment and plan (1) Cardiac arrest: This is a 65-year-old lady with multiple comorbidities who presented to the hospital yesterday with weakness and fatigue as well as nausea and vomiting. The patient has a previous history of ischemic cardiomyopathy with an ejection fraction of 28%. In the emergency department, the patient was treated with IV fluid. Overnight she developed worsening hypoxic respiratory failure. When intubation was attempted the patient coded. The cardiac arrest lasted about 15 minutes according to documentation. This morning, the patient is in multiorgan failure. Overall her outcome is likely to be poor. Currently the patient is undergoing targeted temperature management. The target temperature is between 32 to 36 ?C. We will have every 4 hour CMP, mag and Phos level. She is currently intubated and sedated. She is requiring minimal oxygen. She is on volume controlled mode of mechanical ventilation. There is no evidence of air trapping at this time. Status: Acute (2) Multiorgan failure: The patient has liver, kidney, brain, lung dysfunction. I am going to give the patient Lasix and see if this would help with urine output. If there is no significant urine output and electrolyte abnormalities the patient may require dialysis. However, this is likely to be complicated as the patient has supratherapeutic INR of 10. For now, we will continue with supportive therapy. We are going to aim for map of 75 with the hope that the renal perfusion will help. The patient is currently on a bicarb drip. Her metabolic acidosis is now compensated. If there is any evidence of increasing bicarb level we will discontinue the drip. I am hoping that we will be able to support her without dialysis for the next couple of days and her kidney function will be better. Status: Acute (3) Cardiogenic shock: Etiology for the patient's acute hypoxic respiratory failure is car diogenic pulmonary edema. The patient has predominantly right upper lobe infiltrate which is not uncommon with asymmetric pulmonary edema in the setting of severe mitral regurgitation which the patient has. We will continue with the diuretic therapy. The patient is on Levophed for vasopressor support. The patient also has atrial fibrillation history. Currently she is in sinus rhythm with an amiodarone drip. We will give 1 unit of plasma as dialysis catheter insertion might be necessary in the future. Status: Acute (4) Aortic regurgitation: Continue with supportive therapy for now. Status: Acute (5) Status post mitral valve replacement: Status: Acute (6) Emphysema lung: The patient does have significant centrilobular and paraseptal emphysema from previous CT scans. Her latest CT scan revealed evidence of interstitial opacity on top of the centrilobular and paraseptal emphysema. It is unclear what the etiology is. The patient is being on amiodarone so pulmonary toxicity is a possibility. However, this could also be confounded by the presence of pulmonary edema in the setting of severe mitral regurgitation and cardiogenic pulmonary edema. Once the patient is adequately diuresed this will need to be addressed further. For now, the patient is on hydrocortisone for her shock state. Which will also help if there is any amiodarone induced toxicity. Status: Acute (7) Metabolic acidosis: Lactic acid level seems to be coming down we will continue to follow that. Status: Acute (8) Acute pyelonephritis: The patient is broadly covered with vancomycin and Zosyn currently. Overall, her prognosis is very guarded. Status: Acute Additional A&P Information I have switched her Pepcid to pantoprazole. The patient has multiple risk factors for GI bleed with intubation, supratherapeutic INR and will benefit from pantoprazole. Targeted blood sugar less than 180 mg/dL. 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
--- NOTE | 2020-10-12 11:43 | PM.PN ---
Subjective Subjective: Interval history: Overnight patient developed acute hypoxic respiratory failure, septic shock, ACLS was activated due to loss of pulse with wide-complex tachycardia, she was intubated, had 15 minutes of ACLS, ROSC, did develop V. tach, placed on multiple pressors, intubated, sedated, she had a femoral line placed, this morning had an arterial line placed by Dr. Mcrae, pupils slightly reactive to light, on sedation, urine output 300 cc, she is being started on hypothermia protocol Vitals/I&O/Wt Last Vital Signs Temp 95 F L 10/12/20 06:22 Pulse 66 10/12/20 08:15 Resp 14 10/12/20 11:06 BP 118/70 10/12/20 05:00 Pulse Ox 100 10/12/20 11:06 10/11/20 10/12/20 10/12/20 22:59 06:59 14:59 Intake Total 550 / 550 253.554 / 803.554 Output Total 300 / 300 Balance 550 / 550 -46.446 / 503.554 Weight last 48 hrs Weight 61.326 kg Weight 58.967 kg Physical Exam Narrative: EXAM NARRATIVE: Intubated, sedated on the ventilator HENMT: COMMON NORMALS: normocephalic HEAD & SCALP: normocephalic Eye: OTHER: Pupils minimally reactive to light bilaterally Neck/C-Spine: COMMON NORMALS: no lymphadenopathy and no JVD Lymph: LYMPHATIC: no lymphadenopathy noted Chest: COMMONS NORMALS: normal inspection of the chest Resp: COMMON NORMALS: normal respiratory effort, No retractions and No use of accessory muscles AUSCULTATION: crackles and rhonchi Cardio: COMMON NORMALS: no JVD, S1 normal heart sound present and S2 normal heart sound present RATE: bradycardic HEART SOUNDS: S1 normal heart sound present, S2 normal heart sound present and no murmurs GI: COMMON NORMALS: Normal to inspection, nondistended, normoactive bowel sounds present, Soft to palpation, non-tender and No hepatosplenomegaly present PALPATION: Yes Soft to palpation and Yes No hepatosplenomegaly present OTHER: Surgical incision scar linear, looks clean and dry Extremity: COMMON NORMALS: no pedal edema Urinary Catheter Management^: Conn: Cath Placed During This Visit: yes Reason for Continuing Indwelling Catheter: Accurate Measurement of Urinary Output in Critically Ill Patients Urinary Catheter Date of Insertion: 10/11/20 Urinary Catheter Time of Insertion: 23:00 Sepsis: Is patient septic: Yes Focused sepsis exam performed: Yes Date exam was performed: 10/12/20 Time exam was performed: 08:30 Data : 10/12/20 08:15 10/12/20 08:15 Micro: Microbiology 10/11/20 20:20 Blood Culture - Preliminary Blood SPECIMEN COLLECTED 10/11/20 20:16 Blood Culture - Preliminary Blood SPECIMEN COLLECTED A&P Assessment and plan (1) Septic shock: -Septic shock secondary to bilateral pyelonephritis, and bilateral pneumonia -Status post cardiac arrest, rosc episodes of V. tach -Acute respiratory failure with hypoxia -Acute heart failure, with atrial fibrillation -With multiorgan failure -Acute renal failure, creatinine 1.3, lackluster urine response 60 mg of IV Lasix -Acute liver failure -Lactic acidosis, metabolic acidosis -NSTEMI -DIC Plan: -Admit to ICU -Currently intubated, mechanically ventilated on fentanyl and Versed, paralytic vercuronium -Minimize PEEP, minimize FiO2, daily weaning trials -Has had a lackluster response to Lasix, monitor urine output, monitor creatinine, if continues to have acute renal failure worsening electrolyte abnormalities she might require dialysis -Continue Levophed for pressure support, can add dobutamine if needed -We will give 1 unit FFP -Continue bicarb drip -Hydrocortisone 50 every 6 hours -Continue amiodarone drip for V. tach, A. fib -Broad-spectrum antibiotic coverage vancomycin, Zosyn -Currently on insulin drip, insulin drip protocol maintain blood sugars between 140-180 -Currently on targeted temperature management, CMP every 4 hours, magnesium and phosphorus every 4 hours, lactic acid every 4 hours blood sugars every 1 hour -Cardiac echocardiogram ordered, follow troponins, serial EKGs -Femoral line in place, arterial line in place -Pulmonary on consult -Protonix for GI prophylaxis -Lovenox on hold given elevated INR -Status is critical, prognosis is guarded Status: Acute (2) Acute respiratory failure with hypoxia: Secondary to pneumonia, fluid overload, cardiogenic pulmonary edema History of underlying emphysema Status: Acute (3) Cardiac arrest: -History of ischemic cardiomyopathy EF of 20% -Cardiac arrest during intubation attempt -Cardiac arrest lasting 15 minutes, with CPR -Return of spontaneous regulation -Also developed V. tach Status: Acute (4) NSTEMI (non-ST elevated myocardial infarction): -Likely secondary to sepsis, cardiogenic shock -Trend troponins, serial EKGs -Obtain cardiac echocardiogram Status: Acute (5) Acute pyelonephritis: Incidentally noted on CT. Interestingly urinalysis not particularly suggestive of pyelonephritis. Urine culture pending. Blood culture collected. Status: Acute (6) Multiorgan failure: Status: Acute (7) Thickening of wall of gallbladder: There is moderate transaminitis, AST: ALT ~2-1 pattern, although she does not drink alcohol, CK normal. Alk phos moderately elevated at 130. T bili normal. Mild right upper quadrant tenderness, however, more tender in epigastrium, and possibly some radiation. On CT some thickening noted in the gallbladder. No significant surrounding inflammation. Zosyn as above. Follow blood cultures. Liver ultrasound ordered, shows hepatomegaly, no CBD dilatation. Status: Acute (8) Transaminitis: Secondary to shock Status: Acute (9) Tongue lesion: Round ecchymotic appearance of lesion on anterolateral right side of the tongue. Neither she and her son remember when this is appeared. This may be trauma secondary to bite due to supratherapeutic INR. She denies any pain or recollection of injuring her tongue. Discussed possibility with her and her son regarding embolic disease. They are agreeable at this time to continue anticoagulation, will try to gently taper off warfarin. Hold today, once INR coming down to therapeutic consider either transition to heparin if there is any concern regarding septic embolic disease, or continuing warfarin. Continue monitoring INR. Anticipate changing warfarin requirement while amiodarone is being held. CT head obtained, does not appear to have any hemorrhages or punctate lesions, although noncontrast study. Exam grossly nonfocal, however. Bilateral pyelonephritis findings as above. 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 CRP is elevated, despite being on steroids, higher than ever previously. Continue anticoagulation, hydroxychloroquine. Steroid. Statin on hold for now, but would resume in case liver parameters improving. Add lupus anticoagulant, anticardiolipin antibody, beta-2 glycoprotein antibody. 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 Not hypotensive. Status: Acute (12) Elevated brain natriuretic peptide (BNP) level: Secondary to valvular heart disease. With pulmonary fibrosis and pulmonary hypertension Status: Acute (13) Pulmonary fibrosis: Status: Acute (14) Steroid-induced gastritis: Famotidine IV. Zofran as needed for nausea. Monitor QT. Once vomiting subsides consider sucralfate. Status: Acute (15) Supratherapeutic international normalized ratio (INR): Hold warfarin for now. Reassess INR in the morning, adjust accordingly or consider transition to heparin or holding entirely in and results came back concerning for septic emboli. Status: Acute (16) Hx of mitral valve repair: Status: Acute (17) Lactic acidosis: Status: Acute (18) DIC (disseminated intravascular coagulation): Status: Acute (19) Pneumonia: Status: Acute Additional A&P Information Cardiomyopathy: History of CHF. Cautious use of fluids given history of cardiomyopathy, underlying valvular dysfunction. Rheumatoid arthritis Possible PMR Nonobstructive CAD PAD with left clavicular artery stenting HTN HLD Attestations Medical Necessity Statement*: Patient requires hospitalization inpatient, ICU, for septic shock, acute respiratory failure, cardiac arrest, multiorgan failure, critical care time spent over 60 minutes Coding Level of Care Code Acute Enterprise Application Analyst for [facility] Fwd Diagnoses Septic shock A41.9; R65.21 Acute respiratory failure with hypoxia J96.01 Cardiac arrest I46.9 NSTEMI (non-ST elevated myocardial infarction) I21.4 Acute pyelonephritis N10 Multiorgan failure Thickening of wall of gallbladder K82.8 Transaminitis R74.01 Tongue lesion K14.8 Livedo reticularis R23.1 Cyanosis R23.0 Elevated brain natriuretic peptide (BNP) level R79.89 Pulmonary fibrosis J84.10 Steroid-induced gastritis K29.60; T38.0X5A Supratherapeutic international normalized ratio (INR) R79.1 Hx of mitral valve repair Z98.890 Lactic acidosis E87.2 DIC (disseminated intravascular coagulation) D65 Pneumonia J18.9 Sepsis Event Note Evaluation Current stage of sepsis: severe sepsis Initial hypotension due to sepsis/infection: MAP < 65 mmHg Possible source: pulmonary and genitourinary Focused Exam Vital Signs Temp Pulse Resp BP Pulse Ox 10/12/20 11:59 90.6 F L 51 L 14 125/56 10/12/20 11:06 14 100 10/12/20 09:08 14 95 10/12/20 08:15 66 10/12/20 08:06 67 14 100 10/12/20 07:55 14 100 10/12/20 06:32 76 10/12/20 06:22 95 F L 10/12/20 06:02 14 98 10/12/20 05:00 96.8 F L 77 118/70 96 10/12/20 04:45 78 120/77 96 10/12/20 04:30 82 124/77 100 10/12/20 04:15 83 125/78 10/12/20 04:00 97.0 F L 87 128/80 10/12/20 03:45 88 120/74 10/12/20 03:31 14 92 10/12/20 03:30 89 123/75 10/12/20 03:15 91 125/75 10/12/20 03:00 97.7 F 91 124/77 100 10/12/20 02:45 86 120/74 91 10/12/20 02:30 86 120/74 95 10/12/20 02:15 86 118/74 96 10/12/20 02:00 86 129/81 97 10/12/20 01:45 85 124/76 98 10/12/20 01:30 96.5 F L 85 123/75 97 10/12/20 01:25 85 120/76 95 10/12/20 01:21 14 92 10/12/20 01:20 85 14 112/73 93 10/12/20 01:15 85 14 114/70 93 10/12/20 01:10 85 19 H 110/64 99 10/12/20 01:05 85 14 103/65 10/12/20 01:00 85 14 99/65 92 10/12/20 00:55 82 14 93/63 84 L 10/12/20 00:50 77 20 H 97/58 85 L 10/12/20 00:45 78 14 92/52 85 L 10/12/20 00:41 77 10/12/20 00:40 76 14 91/58 10/12/20 00:35 74 14 95/54 86 L 10/12/20 00:30 75 16 94/56 10/12/20 00:25 77 16 94/56 Respiratory exam: Present rales Cardiovascular exam: Present S1, S2 and bradycardia Capillary refill: > 3 Seconds Peripheral pulse strength: 1+ Faint Peripheral pulse location: Pedal Skin exam: pale and mottling Date exam was performed: 10/12/20 Time exam was performed: 12:24 Problem List (1) Acute pyelonephritis: Status: Acute (2) Thickening of wall of gallbladder: Status: Acute (3) Transaminitis: Status: Acute (4) Tongue lesion: Status: Acute (5) Livedo reticularis: Status: Acute (6) Cyanosis: Status: Acute (7) Elevated brain natriuretic peptide (BNP) level: Status: Acute (8) Pulmonary fibrosis: Status: Acute (9) Steroid-induced gastritis: Status: Acute (10) Supratherapeutic international normalized ratio (INR): Status: Acute (11) Hx of mitral valve repair: Status: Acute (12) Lactic acidosis: Status: Acute (13) Septic shock: Status: Acute (14) Acute respiratory failure with hypoxia: Status: Acute (15) Multiorgan failure: Status: Acute (16) NSTEMI (non-ST elevated myocardial infarction): Status: Acute (17) Cardiac arrest: Status: Acute (18) DIC (disseminated intravascular coagulation): Status: Acute (19) Pneumonia: Status: Acute
[2020-10-12] MEDS: sodium chloride 0.9% (100 ml) 100 ML (12:09)
[2020-10-12] MEDS: insulin regular-human 250 UNIT in sodium chloride 0.9% 250 ML IV (12:10)
[2020-10-12] MEDS: sodium chloride 0.9% 1,000 ML 1 ML IV (12:11)
[2020-10-12 12:42] LABS: Albumin Level 2.8 g/dL (3.5-5.2); Alkaline Phosphatase 125 IU/L (35-105); Anion Gap 15.2 (5-19); Blood Urea Nitrogen 26 mg/dL (8-23); Calcium 7.9 mg/dL (8.5-10.5); Carbon Dioxide 27 mmol/L (22-29); Chloride 93 mmol/L (98-107); Globulin 2.8 g/dL (1.3-4.6); Glomerular Filtration Rate 40.9 mL/min (90-130); Glucose 336 mg/dL (65-115); Magnesium 2.6 mg/dL (1.7-2.3); Osmolality Calculated 292 mOsm/kg (285-295); Phosphorus 4.9 mg/dL (2.5-4.5); Potassium 3.2 mmol/L (3.5-5.1); Sodium 132 mmol/L (136-145); Total Bilirubin 0.9 mg/dL (0.15-1.2); Total Protein 5.6 g/dL (6.6-8.7)
[2020-10-12 12:47] LABS: Lactate (Lactic Acid level) 5.1 mmol/L (0.5-2.2)
[2020-10-12 12:54] LABS: Alanine Aminotransferase 3982 U/L (0-33)
[2020-10-12 12:55] LABS: Aspartate Amino Transferase 5816 U/L (0-32)
--- NOTE | 2020-10-12 13:44 | PC.NURSE ---
This Zosyn started immediately after previous Zosyn completed.
--- NOTE | 2020-10-12 14:54 | ECG_ITS ---
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 Measurements Intervals [place] Rate: 66 P: 238 SC: 249 QRS: -42 QRSD: 214 T: 154 QT: 577 QTc: 605 Interpretive Statements SINUS RHYTHM WITH FIRST DEGREE AV BLOCK MARKED LEFT AXIS DEVIATION [QRS AXIS < -30] LEFT BUNDLE BRANCH BLOCK [120+ ms QRS DURATION, 80+ ms Q/S IN V1/V2, 85+ ms R IN I/aVL/V5/V6] QT prolongation WARNING: DATA QUALITY MAY AFFECT INTERPRETATION Compared to ECG 10/12/2020 11:02:46 Sinus bradycardia no longer present Electronically Signed On 10-13-2020 1:15:24 CDT by Neema Barillas M.D. [id number]
[2020-10-12 15:19] LABS: Troponin 5 6HR 89.66 ng/L (0-10)
[2020-10-12 15:25] LABS: Coronavirus Test Green County Not Detected
--- NOTE | 2020-10-12 15:38 | PC.CHAP ---
Pastoral Care Encounter/Spiritual Assessment Type of Contact [] Declined corner bead operator visit [] Patient/Family/Request visit [] Outpatient visit [x] Follow-up visit [] Physician referral [] Code/Alert [] Routine visit [] Staff referral [] Actively dying [] Patient sleeping [] Family support [] [] Out of room [] Palliative care [] [] Receiving care in room [] Pre-surgical visit [] Trauma [] Long length of stay [] ICU visit [] Other: Relational/Emotional Strength [] Patient feels connected with others/family/visitors/staff [] Distress [] Loneliness/isolation [] Abandonment Spirituality of Patient [] Person of Dawna [] Attends Gnosticist of their Dawna [] Believes in Prayer [] Reads Bible or Pentecostal materials [] There are Spiritual issues to be addressed Lead Cytogenetic Technologist Interventions [] Prayer [] Active listening [] Non-anxious presence [] Spiritual/emotional support [] Crisis/trauma care [] Spiritual counseling [] Bereavement support [] Provided bereavement packet [] Provided Bible/devotional materials [] Provided toy/stuffed animal, coloring book to patient or family member [] Provided Communion [] Anointing/[place] [] Salvation [] Completed spiritual assessment [] Other: Impact on Illness or Injury [] Angry [] Fearful [] Anxious [] Often cries [] Exhaustion [] Unable to work [] Unable to attend synagogue [] Unable to walk/stand [] Unable to read [] Unable to drive [] Unable to eat/drink [] Unable to sleep [] Unable to be with family [] Patient intubated [] Other: Summary didnt respond Time spent with patient 3min
--- NOTE | 2020-10-12 15:48 | PC.NURSE ---
Attempted to call son, Raghu Darby, , to inform Covid not detected, so family could visit. No answer, voice mail not set up
--- NOTE | 2020-10-12 16:39 | PC.RESP ---
Pulmonary Rehab information to patient.
[2020-10-12 17:17] LABS: Lactate (Lactic Acid level) 3.4 mmol/L (0.5-2.2)
[2020-10-12 17:19] LABS: Albumin Level 3.1 g/dL (3.5-5.2); Alkaline Phosphatase 132 IU/L (35-105); Anion Gap 15.1 (5-19); Blood Urea Nitrogen 28 mg/dL (8-23); Carbon Dioxide 28 mmol/L (22-29); Chloride 94 mmol/L (98-107); Glomerular Filtration Rate 44.8 mL/min (90-130); Glucose 195 mg/dL (65-115); Magnesium 2.5 mg/dL (1.7-2.3); Osmolality Calculated 289 mOsm/kg (285-295); Phosphorus 5.4 mg/dL (2.5-4.5); Potassium 3.1 mmol/L (3.5-5.1); Sodium 134 mmol/L (136-145); Total Protein 6.1 g/dL (6.6-8.7)
--- NOTE | 2020-10-12 17:32 | US_ITS ---
WS: [id number] ULTRASOUND ABDOMEN CLINICAL INFORMATION: elevated LFTs COMPARISON: CT October 11, 2020 FINDINGS: Liver Size: Enlarged Craniocaudal length: 18.5 cm. Echogenicity: Diffuse fatty infiltration Surface nodularity: None. Mass (size and location): None. Bile ducts Intrahepatic ducts: Normal. Common bile duct diameter: 0.28 cm. Gallbladder Gallbladder wall thickening with edema likely due to hepatocellular disease Gallstones: None. Gallbladder sludge: None. Gallbladder wall thickening: Present 8.7 mm Pericholecystic fluid: None. Sonographic Rollins sign: Absent. Pancreas Normal as visualized. Right kidney: Normal. Hydronephrosis: None. Size: 10.9 cm x 4.6 cm x 4.7 cm Abdominal aorta and IVC Visualized portions are normal. Ascites: None. US/US liver [id number] IMPRESSION: 1. Hepatomegaly with diffuse fatty infiltration. 2. Diffuse gallbladder wall thickening with edema likely due to hepatocellular disease. 3. Normal common bile duct 4. No hydronephrosis in right kidney.
[2020-10-12 17:34] LABS: Alanine Aminotransferase 4290 U/L (0-33)
[2020-10-12 17:36] LABS: Aspartate Amino Transferase 9614 U/L (0-32)
--- NOTE | 2020-10-12 18:19 | PC.NURSE ---
Positioning through out the day held until pt more stable. Shifting pt and repositioning limbs done throughout the day.
[2020-10-12 18:49] LABS: Glucose Point of Care 350 mg/dL (70-110)
[2020-10-12 18:49] LABS: Glucose Point of Care 277 mg/dL (70-110)
[2020-10-12 18:49] LABS: Glucose Point of Care 197 mg/dL (70-110)
[2020-10-12 18:49] LABS: Glucose Point of Care 175 mg/dL (70-110)
[2020-10-12 18:49] LABS: Glucose Point of Care 320 mg/dL (70-110)
[2020-10-12 18:49] LABS: Glucose Point of Care 223 mg/dL (70-110)
[2020-10-12 18:49] LABS: Glucose Point of Care 153 mg/dL (70-110)
[2020-10-12 18:49] LABS: Glucose Point of Care 323 mg/dL (70-110)
[2020-10-12 19:52] LABS: Glucose Point of Care 117 mg/dL (70-110)
--- NOTE | 2020-10-12 20:08 | PC.NURSE ---
Shift summary: Pt remains intubated. She is on sedation of Fentanyl (75mcg/hr) and Versed (2mg/hr). No purposeful movement noted throughout the day. Dobutamine and Bicarb gtts discontinued today. Levophed on at 0800 at 2mcg/min , stopped at 1800. MAP stayed greater than 80 throughout the day. Insulin gtt started. Lasix admin this am. . Pt only had 20ml of urine output until 1730, then she dumped 1000ml out. Pt being cooled target temps 32-34 degrees C. Pt's temp has ranged 91.8 to 94.8 F. Pt's skin is cool and she has mottling on her nose, hands and feet ( which is not new per family). She had mottling on her arms and knees too. No break down noted on her bottom. First degree heart block noted, heart rate 49-78 today. Multiple critical labs today: troponin, Lactic acid, PT and INR. 1 unit of FFP administered. Right femoral arterial line inserted this am by Dr Mcrae. Son , Raghu Darby, called three times for updates today, informed him that Covid was not detected and he could now visit tomorrow.
--- NOTE | 2020-10-12 20:17 | PC.NURSE ---
Dr. Simons at bedside gave orders to D/C INsulin gtt, amiodarone gtt, and change glucose checks to every 2 hours
[2020-10-12 20:25] LABS: Lactate (Lactic Acid level) 2.6 mmol/L (0.5-2.2)
[2020-10-12 20:26] LABS: Alkaline Phosphatase 147 IU/L (35-105); Anion Gap 14.3 (5-19); Blood Urea Nitrogen 30 mg/dL (8-23); Calcium 7.7 mg/dL (8.5-10.5); Carbon Dioxide 28 mmol/L (22-29); Chloride 96 mmol/L (98-107); Glomerular Filtration Rate 44.8 mL/min (90-130); Glucose 104 mg/dL (65-115); Magnesium 2.5 mg/dL (1.7-2.3); Osmolality Calculated 286 mOsm/kg (285-295); Phosphorus 5.2 mg/dL (2.5-4.5); Potassium 3.3 mmol/L (3.5-5.1); Sodium 135 mmol/L (136-145); Total Bilirubin 1.1 mg/dL (0.15-1.2)
[2020-10-12 20:37] LABS: Alanine Aminotransferase 4366 U/L (0-33)
[2020-10-12 21:23] LABS: Glucose Point of Care 102 mg/dL (70-110)
--- NOTE | 2020-10-12 22:27 | ECG_ITS ---
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 Measurements Intervals [place] Rate: 56 P: 201 [place]: 191 QRS: -31 QRSD: 222 T: 226 QT: 655 QTc: 637 Interpretive Statements SINUS BRADYCARDIA WITH OCCASIONAL VENTRICULAR PREMATURE COMPLEXES MARKED LEFT AXIS DEVIATION [QRS AXIS < -30] LEFT BUNDLE BRANCH BLOCK [120+ ms QRS DURATION, 80+ ms Q/S IN V1/V2, 85+ ms R IN I/aVL/V5/V6] Compared to ECG 10/12/2020 15:11:27 Ventricular premature complex(es) now present Sinus rhythm no longer present First degree AV block no longer present Electronically Signed On 10-15-2020 21:08:22 CDT by Khushboo Dalton M.D. [id number]
[2020-10-13] VITALS (65 sets, daily range): BP systolic 102–139; BP diastolic 50–74; PULSE 54–132; RESP 14–21; TEMP 32.2–35.7; O2SAT 84–100
[2020-10-13 00:24] LABS: Alkaline Phosphatase 130 IU/L (35-105); Anion Gap 17.4 (5-19); Blood Urea Nitrogen 31 mg/dL (8-23); Calcium 7.8 mg/dL (8.5-10.5); Carbon Dioxide 27 mmol/L (22-29); Chloride 98 mmol/L (98-107); Globulin 2.8 g/dL (1.3-4.6); Glomerular Filtration Rate 40.9 mL/min (90-130); Glucose 120 mg/dL (65-115); Osmolality Calculated 296 mOsm/kg (285-295); Phosphorus 5.6 mg/dL (2.5-4.5); Potassium 3.4 mmol/L (3.5-5.1); Sodium 139 mmol/L (136-145); Total Bilirubin 1.2 mg/dL (0.15-1.2); Total Protein 5.8 g/dL (6.6-8.7)
[2020-10-13 00:35] LABS: Alanine Aminotransferase 4130 U/L (0-33)
[2020-10-13 01:47] LABS: Glucose Point of Care 90 mg/dL (70-110)
[2020-10-13 01:47] LABS: Glucose Point of Care 108 mg/dL (70-110)
[2020-10-13] MEDS: ipratropium-albuterol 3 mL Neb INHALATION ×4 (02:13→20:39)
[2020-10-13] MEDS: piperacillin-tazobactam 3.375 GM in sodium chloride 0.9% (plus) 50 ML IV ×3 (03:13→19:57)
[2020-10-13] MEDS: hydrocortisone 100 mg/2 mL SDV 50 MG IVP ×4 (03:14→21:54)
[2020-10-13 04:23] LABS: Glucose Point of Care 105 mg/dL (70-110)
[2020-10-13 05:21] LABS: ABG PH Result 7.25 (7.35-7.45); Arterial Blood Gas Hematocrit 31.2 % (37-47); Base Excess ABG 0.9 mmol/L (-2.0-2.0); Blood Gas Operator Identificat JB; Blood Gas Sample Type Arterial; HCO3 ABG 29.2 mmol/L (22-26); Oxygen Device VENT; PO2 ABG 73.2 mmHg (80.0-100.0)
[2020-10-13 05:43] LABS: ABG PCO2 66.5 mmHg (35-45)
[2020-10-13 05:44] LABS: Basophils % 0.2 %; Hematocrit 30.9 % (37.0-47.0); Hemoglobin 9.5 g/dL (11.5-15.3); Lymphocytes # 0.2 10^3/uL (0.8-4.8); Lymphocytes % 1.1 %; Mean Corpuscular HGB Conc 30.7 g/dL (30.0-36.0); Mean Corpuscular Hemoglobin 30.4 pg (28.0-34.0); Mean Platelet Volume 11.3 fL (7.4-10.4); Monocytes # 0.3 10^3/uL (0.2-0.9); Monocytes % 1.8 %; Neutrophils # 16.12 10^3/uL (1.8-7.7); Neutrophils % 96.4 %; Nucleated Red Blood Cells # 0.2 /100WBC; Nucleated Red Blood Cells % 1.3 %; Platelet Count 223 10^3/cmm (130-400); Red Blood Count 3.12 10^6/uL (4.1-5.3); Red Cell Distribution Width 17.1 % (12.1-15.1); White Blood Count 16.7 10^3/uL (4.0-10.0)
--- NOTE | 2020-10-13 06:00 | ECG_ITS ---
[facility] ED Test Date: 2020-10-13 Pat Name: Clementina Mcghee Department: Room: ICU11 Gender: Female Digital Editor: : 1955 Requested By: Can Nixon Order Number: [id number] Andrea MD: Khushboo Dalton M.D. Measurements Intervals [place] Rate: 63 P: 240 NM: 240 QRS: -24 QRSD: 201 T: 224 QT: 617 QTc: 637 Interpretive Statements SINUS RHYTHM WITH FIRST DEGREE AV BLOCK LEFT BUNDLE BRANCH BLOCK [120+ ms QRS DURATION, 80+ ms Q/S IN V1/V2, 85+ ms R IN I/aVL/V5/V6] Compared to ECG 10/12/2020 22:34:20 First degree AV block now present Sinus bradycardia no longer present Ventricular premature complex(es) no longer present Left-axis deviation no longer present Electronically Signed On 10-15-2020 21:19:21 CDT by Khushboo Dalton M.D. [id number]
[2020-10-13 06:22] LABS: Albumin Level 2.9 g/dL (3.5-5.2); Alkaline Phosphatase 135 IU/L (35-105); Anion Gap 16.4 (5-19); Blood Urea Nitrogen 33 mg/dL (8-23); C Reactive Protein 61.5 mg/L (0.0-4.9); Calcium 7.9 mg/dL (8.5-10.5); Carbon Dioxide 27 mmol/L (22-29); Chloride 97 mmol/L (98-107); Globulin 3.1 g/dL (1.3-4.6); Glomerular Filtration Rate 40.9 mL/min (90-130); Glucose 123 mg/dL (65-115); Magnesium 2.3 mg/dL (1.7-2.3); Osmolality Calculated 293 mOsm/kg (285-295); Phosphorus 5.6 mg/dL (2.5-4.5); Potassium 3.4 mmol/L (3.5-5.1); Sodium 137 mmol/L (136-145); Total Bilirubin 1.4 mg/dL (0.15-1.2)
--- NOTE | 2020-10-13 06:24 | PC.NURSE ---
0445 Discussed rewarming of pt with Dr. Simons see orders 0500 Pt temp 34.1 blanket temp set 33.2 0600 Pt Temp 33.6 increased blanket temperature 35.0 C.
[2020-10-13 06:30] LABS: Lactate (Lactic Acid level) 3.3 mmol/L (0.5-2.2)
[2020-10-13 06:37] LABS: Alanine Aminotransferase 3912 U/L (0-33)
[2020-10-13 06:38] LABS: Aspartate Amino Transferase 6255 U/L (0-32)
--- NOTE | 2020-10-13 07:00 | XRR_ITS ---
PROCEDURE INFORMATION: Exam: XR Chest Exam date and time: 10/13/2020 5:02 AM Age: 65 years old Clinical indication: Shortness of breath; Patient HX: Bilat infiltrate follow up, intubated; Additional info: SOB TECHNIQUE: Imaging protocol: XR of the chest Views: 1 view. COMPARISON: CR XR chest 1V portable [id number] 10/12/2020 5:11 AM FINDINGS: Tubes, catheters and devices: Endotracheal tube terminates 1.5 cm above the level of the rafaela. NG tube terminates in the stomach. Defibrillator pads and monitor leads project over the chest wall. Lungs: There are multifocal patchy bilateral airspace opacities, greatest in the right upper lobe and left lower lobe. Findings appear relatively stable compared to previous exam. Pleural spaces: Left pleural effusion, no change. No pneumothorax. Heart/Mediastinum: Cardiomegaly, no change. There is a cardiac valve. Vascular mediastinal stent is noted. Bones/joints: Previous median sternotomy. Redemonstration of rib fractures. XR/XR chest 1V portable [id number] IMPRESSION: No interval change.
[2020-10-13 07:11] LABS: NT Pro B Type Natriuretic Pept 6683 pg/mL (0-125); Procalcitonin 1.15 ng/mL (0-0.5)
[2020-10-13 07:13] LABS: Partial Thromboplastin Time 48.2 SECONDS (23.9-36.7)
[2020-10-13 07:21] LABS: D Dimer 11.96 ug/mIFEU (0-0.59)
[2020-10-13 07:24] LABS: Creatine Phosphokinase 135 U/L (26-192)
[2020-10-13 07:45] LABS: Fibrinogen 351 mg/dL (174-498)
[2020-10-13 08:39] LABS: INR 8.04 (0.8-1.2)
--- NOTE | 2020-10-13 08:41 | PC.NURSE ---
Critical INR taken. 8.0. Rported to primary nurse WARNER Sow.
[2020-10-13 09:10] LABS: Glucose Point of Care 107 mg/dL (70-110)
[2020-10-13 09:10] LABS: Glucose Point of Care 105 mg/dL (70-110)
[2020-10-13 09:37] LABS: Alkaline Phosphatase 194 IU/L (35-105); Anion Gap 14.4 (5-19); Blood Urea Nitrogen 35 mg/dL (8-23); Carbon Dioxide 29 mmol/L (22-29); Chloride 99 mmol/L (98-107); Globulin 3.2 g/dL (1.3-4.6); Glomerular Filtration Rate 34.6 mL/min (90-130); Glucose 130 mg/dL (65-115); Magnesium 2.4 mg/dL (1.7-2.3); Osmolality Calculated 298 mOsm/kg (285-295); Phosphorus 5.3 mg/dL (2.5-4.5); Potassium 3.4 mmol/L (3.5-5.1); Sodium 139 mmol/L (136-145); Total Bilirubin 1.5 mg/dL (0.15-1.2); Total Protein 6.2 g/dL (6.6-8.7)
[2020-10-13] MEDS: FUROsemide 10 mg/mL SDV 10mL 60 MG IVP (09:46)
[2020-10-13] MEDS: pantoprazole 40 mg SDV IVP ×2 (09:46→21:54)
[2020-10-13] MEDS: lidocaine 1% 5 ML in potassium chloride premix 100 ML 25 ML IV (09:47)
[2020-10-13 09:48] LABS: Alanine Aminotransferase 3827 U/L (0-33)
[2020-10-13 09:49] LABS: Aspartate Amino Transferase 5353 U/L (0-32)
[2020-10-13] MEDS: vancomycin 750 MG in sodium chloride 0.9% 250 ML 250 MG IV (09:49)
[2020-10-13 14:20] LABS: Alkaline Phosphatase 153 IU/L (35-105); Anion Gap 19.7 (5-19); Blood Urea Nitrogen 34 mg/dL (8-23); Calcium 8.2 mg/dL (8.5-10.5); Carbon Dioxide 25 mmol/L (22-29); Chloride 104 mmol/L (98-107); Glomerular Filtration Rate 34.6 mL/min (90-130); Glucose 94 mg/dL (65-115); Magnesium 2.3 mg/dL (1.7-2.3); Osmolality Calculated 305 mOsm/kg (285-295); Phosphorus 5.7 mg/dL (2.5-4.5); Potassium 4.7 mmol/L (3.5-5.1); Sodium 144 mmol/L (136-145); Total Bilirubin 1.6 mg/dL (0.15-1.2)
[2020-10-13 14:31] LABS: Alanine Aminotransferase 3476 U/L (0-33)
--- NOTE | 2020-10-13 14:33 | PM.PN ---
Subjective Subjective: Interval history: Patient was examined this morning, nurses at bedside, her amiodarone drip and insulin drip have been turned off, she is starting the rewarming protocol, is having some shivering of upper and lower extremities, she does withdraw from pain, Babinski is upward going bilaterally, pupils are equal round reactive to light, has some degree of flexor posturing, remains intubated, sedated on the ventilator, no hypotensive episodes overnight urine output has improved to 1670 cc Vitals/I&O/Wt Last Vital Signs Temp 92.0 F L 10/13/20 04:30 Pulse 88 10/13/20 08:03 Resp 20 H 10/13/20 13:54 BP 118/65 10/13/20 04:30 Pulse Ox 92 10/13/20 13:54 10/12/20 10/13/20 10/13/20 22:59 06:59 14:59 Intake Total 776.865 / 2628.251 132.125 / 2760.376 104.533 / 104.533 Output Total 1150 / 1170 500 / 1670 Balance -373.135 / 1458.251 -367.875 / 1090.376 104.533 / 104.533 Weight last 48 hrs Weight 61.326 kg Physical Exam Narrative: EXAM NARRATIVE: Intubated, sedated on the ventilator HENMT: COMMON NORMALS: normocephalic HEAD & SCALP: normocephalic Eye: COMMON NORMALS: Equal, round and reactive pupils present PUPIL: Yes Equal, round and reactive pupils present Neck/C-Spine: COMMON NORMALS: no lymphadenopathy and no JVD Lymph: LYMPHATIC: no lymphadenopathy noted Chest: COMMONS NORMALS: normal inspection of the chest Resp: COMMON NORMALS: normal respiratory effort, No retractions and No use of accessory muscles AUSCULTATION: crackles and rhonchi Cardio: COMMON NORMALS: no JVD, S1 normal heart sound present and S2 normal heart sound present RATE: bradycardic HEART SOUNDS: S1 normal heart sound present, S2 normal heart sound present and no murmurs GI: COMMON NORMALS: Normal to inspection, nondistended, normoactive bowel sounds present, Soft to palpation, non-tender and No hepatosplenomegaly present PALPATION: Yes Soft to palpation and Yes No hepatosplenomegaly present OTHER: Surgical incision scar linear, looks clean and dry Extremity: COMMON NORMALS: no pedal edema NARRATIVE EXTREMITY EXAM: -Does withdraw from pain, some degree of flexor posturing -Does have shivering movements of upper and lower extremities OTHER: DP PT pulses palpable, does have bluish discoloration of bilateral lower extremities, and of hands Pale complexion Capillary refill less than 2 seconds Urinary Catheter Management^: Conn: Cath Placed During This Visit: yes Reason for Continuing Indwelling Catheter: Accurate Measurement of Urinary Output in Critically Ill Patients Urinary Catheter Date of Insertion: 10/11/20 Urinary Catheter Time of Insertion: 23:00 Data : 10/13/20 05:06 10/13/20 13:05 Micro: Microbiology 10/11/20 17:11 Urine Culture - Preliminary Urine,Clean Catch 10/11/20 20:20 Blood Culture - Preliminary Blood NEGATIVE TO DATE 10/11/20 20:16 Blood Culture - Preliminary Blood NEGATIVE TO DATE A&P Assessment and plan (1) Septic shock: -Septic shock secondary to bilateral pyelonephritis, and bilateral pneumonia -Status post cardiac arrest, rosc episodes of V. tach -Acute respiratory failure with hypoxia -Acute heart failure, with atrial fibrillation -With multiorgan failure -Acute renal failure -Acute liver failure -Lactic acidosis, metabolic acidosis -NSTEMI -DIC Plan: -Admit to ICU -Currently intubated, mechanically ventilated on fentanyl and Versed, paralytic vercuronium -Minimize PEEP, minimize FiO2, daily weaning trials -Has had good response overnight to Lasix, will give another dose of Lasix, monitor urine output monitor creatinine -Currently off Levophed, maintain map greater than 75 -Status post 1 unit PRBC -Off bicarb drip -Hydrocortisone 50 every 6 hours -Off amiodarone, is bradycardic, still having atrial fibrillation. Will consider adding p.o. amiodarone based upon clinical progress -Broad-spectrum antibiotic coverage vancomycin, Zosyn -Currently off insulin drip, currently on subcu insulin monitor blood sugars every 2 hours -Currently undergoing rewarming process, monitor potassium, monitor electrolytes every 4 hours -Cardiac echocardiogram ordered shows EF of 15 to 20%, severe global hypokinesis, -Femoral line in place, arterial line in place -Pulmonary on consult -Protonix for GI prophylaxis -Lovenox on hold given elevated INR -Status is critical, prognosis is guarded Status: Acute (2) Acute respiratory failure with hypoxia: Secondary to pneumonia, fluid overload, cardiogenic pulmonary edema History of underlying emphysema Status: Acute (3) Cardiac arrest: -History of ischemic cardiomyopathy EF of 20% -Cardiac arrest during intubation attempt -Cardiac arrest lasting 15 minutes, with CPR -Return of spontaneous regulation -Also developed V. tach Status: Acute (4) NSTEMI (non-ST elevated myocardial infarction): -Likely secondary to sepsis, cardiogenic shock -Trend troponins, serial EKGs -EF 15 to 20%, severe global hypokinesis Status: Acute (5) Acute pyelonephritis: Incidentally noted on CT. Interestingly urinalysis not particularly suggestive of pyelonephritis. Urine culture pending. Blood culture collected. Status: Acute (6) Multiorgan failure: Status: Acute (7) Thickening of wall of gallbladder: There is moderate transaminitis, AST: ALT ~2-1 pattern, although she does not drink alcohol, CK normal. Alk phos moderately elevated at 130. T bili normal. Mild right upper quadrant tenderness, however, more tender in epigastrium, and possibly some radiation. On CT some thickening noted in the gallbladder. No significant surrounding inflammation. Zosyn as above. Follow blood cultures. Liver ultrasound liver ultrasound shows hepatomegaly with diffuse fatty infiltration, shows hepatomegaly, no CBD dilatation. Status: Acute (8) Transaminitis: Secondary to shock Status: Acute (9) Tongue lesion: Round ecchymotic appearance of lesion on anterolateral right side of the tongue. Neither she and her son remember when this is appeared. This may be trauma secondary to bite due to supratherapeutic INR. She denies any pain or recollection of injuring her tongue. Discussed possibility with her and her son regarding embolic disease. They are agreeable at this time to continue anticoagulation, will try to gently taper off warfarin. Hold today, once INR coming down to therapeutic consider either transition to heparin if there is any concern regarding septic embolic disease, or continuing warfarin. Continue monitoring INR. Anticipate changing warfarin requirement while amiodarone is being held. CT head obtained, does not appear to have any hemorrhages or punctate lesions, although noncontrast study. Exam grossly nonfocal, however. Bilateral pyelonephritis findings as above. 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 CRP is elevated, despite being on steroids, higher than ever previously. Continue anticoagulation, hydroxychloroquine. Steroid. Statin on hold for now, but would resume in case liver parameters improving. Add lupus anticoagulant, anticardiolipin antibody, beta-2 glycoprotein antibody. 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 Not hypotensive. Status: Acute (12) Elevated brain natriuretic peptide (BNP) level: Secondary to valvular heart disease. With pulmonary fibrosis and pulmonary hypertension Status: Acute (13) Pulmonary fibrosis: Status: Acute (14) Steroid-induced gastritis: Famotidine IV. Zofran as needed for nausea. Monitor QT. Once vomiting subsides consider sucralfate. Status: Acute (15) Supratherapeutic international normalized ratio (INR): Hold warfarin for now. Reassess INR in the morning, adjust accordingly or consider transition to heparin or holding entirely in and results came back concerning for septic emboli. Status: Acute (16) Hx of mitral valve repair: Status: Acute (17) Lactic acidosis: Status: Acute (18) DIC (disseminated intravascular coagulation): Status: Acute (19) Pneumonia: Status: Acute Additional A&P Information Cardiomyopathy Rheumatoid arthritis Possible PMR Nonobstructive CAD PAD with left clavicular artery stenting HTN HLD Plan for today continue rewarming protocol, monitor potassium, trend blood sugars, monitor heart rates, continue antibiotics, monitor urine output, neurochecks Attestations Medical Necessity Statement*: Patient requires hospitalization for acute respiratory failure cardiac arrest, multiorgan failure Coding Level of Care Code Acute [employer]ise Mixer for [facility] Fwd Diagnoses Septic shock A41.9; R65.21 Acute respiratory failure with hypoxia J96.01 Cardiac arrest I46.9 NSTEMI (non-ST elevated myocardial infarction) I21.4 Acute pyelonephritis N10 Multiorgan failure Thickening of wall of gallbladder K82.8 Transaminitis R74.01 Tongue lesion K14.8 Livedo reticularis R23.1 Cyanosis R23.0 Elevated brain natriuretic peptide (BNP) level R79.89 Pulmonary fibrosis J84.10 Steroid-induced gastritis K29.60; T38.0X5A Supratherapeutic international normalized ratio (INR) R79.1 Hx of mitral valve repair Z98.890 Lactic acidosis E87.2 DIC (disseminated intravascular coagulation) D65 Pneumonia J18.9
[2020-10-13 14:47] LABS: Aspartate Amino Transferase 4774 U/L (0-32)
--- NOTE | 2020-10-13 15:43 | PM.PN ---
Subjective Subjective: Interval history: The patient was seen and examined today. She is in the warming phase of the targeted temperature management. There has been significant improvement hemodynamically. Currently the patient is off of any pressors. Her amiodarone was switched off after she was bradycardic overnight. More importantly, the patient is having excellent urine output. Her creatinine has remained stable. In addition, chest x-ray this morning revealed improvement of pulmonary edema. Her liver enzymes are also coming down. The INR improved after 1 unit of plasma. Medications: Reviewed: Yes Vitals/I&O/Wt Last Vital Signs Temp 92.0 F L 10/13/20 04:30 Pulse 89 10/13/20 15:11 Resp 17 10/13/20 15:07 BP 118/65 10/13/20 04:30 Pulse Ox 95 10/13/20 15:07 10/13/20 10/13/20 10/13/20 06:59 14:59 22:59 Intake Total 132.125 / 2760.376 459.533 / 459.533 0 / 459.533 Output Total 500 / 1670 Balance -367.875 / 1090.376 459.533 / 459.533 0 / 459.533 Weight last 48 hrs Weight 135 lb 3.2 oz Physical Exam Narrative: EXAM NARRATIVE: General: The patient is intubated and sedated HEENT: Minimally reactive pupil Respiratory: Auscultation: Bilateral crackles, improved from yesterday, no wheezing or rhonchi Cardiovascular: Regular rate and rhythm, S1-S2 present, soft heart sound, no peripheral edema Abdomen: Soft, nondistended, very sluggish bowel sound Neuro: Unable to assess Urinary Catheter Management^: Conn: Cath Placed During This Visit: yes Reason for Continuing Indwelling Catheter: Accurate Measurement of Urinary Output in Critically Ill Patients Urinary Catheter Date of Insertion: 10/11/20 Urinary Catheter Time of Insertion: 23:00 Data : 10/13/20 05:06 10/13/20 13:05 Micro: Microbiology 10/11/20 17:11 Urine Culture - Preliminary Urine,Clean Catch 10/11/20 20:20 Blood Culture - Preliminary Blood NEGATIVE TO DATE 10/11/20 20:16 Blood Culture - Preliminary Blood NEGATIVE TO DATE Attestation for Other Data: I personally reviewed and interpreted the following: Other data: I have reviewed the patient's laboratory, microbiologic and radiologic data. The chest infiltrates have improved according to my read. The patient has mild leukocytosis. The creatinine has stabilized. Blood culture is negative so far. Echocardiogram revealed severe biventricular function. The ejection fraction is 15 to 20%. A&P Assessment and plan (1) Cardiac arrest: The patient is status post cardiac arrest on October 12. Currently the patient is hemodynamically stable. Not on any pressors. Making recovery. She is in the warming phase of the targeted temperature management. Electrolytes are stable. No significant hyperkalemia. We will start reducing her sedation and assess mental status tomorrow. Status: Acute (2) Multiorgan failure: Fortunately the patient is showing signs of improvement. Her LFTs are coming down, the creatinine has stabilized and the patient is having good urine output. The most important part in her recovery is going to be the brain function. The patient did have a cardiac arrest episode for about 15 minutes and the concern would be whether she has suffered from anoxic brain injury. Once the sedation is reduced will be able to assess this better. Status: Acute (3) Cardiogenic shock: Shock has resolved. The current patient is currently not on any pressors. She is in sinus rhythm. The amiodarone was stopped because of bradycardia. Status: Acute (4) Aortic regurgitation: Continue with supportive therapy for now. Status: Acute (5) Status post mitral valve replacement: Status: Acute (6) Emphysema lung: The patient does have significant centrilobular and paraseptal emphysema from previous CT scans. Her latest CT scan revealed evidence of interstitial opacity on top of the centrilobular and paraseptal emphysema. It is unclear what the etiology is. The patient is being on amiodarone so pulmonary toxicity is a possibility. However, this could also be confounded by the presence of pulmonary edema in the setting of severe mitral regurgitation and cardiogenic pulmonary edema. Once the patient is adequately diuresed this will need to be addressed further. For now, the patient is on hydrocortisone for her shock state. Which will also help if there is any amiodarone induced toxicity. Status: Acute (7) Metabolic acidosis: Lactic acid level has come down. The metabolic acidosis is also improved as the kidney function has gotten better. Status: Acute (8) Acute pyelonephritis: The patient is broadly covered with vancomycin and Zosyn currently. The plan for tomorrow is going to be reducing sedation and assessing her mental status. Continue to provide hemodynamic support. Continue the diuresis. Continue with antibiotics. Status: Acute Additional A&P Information I have switched her Pepcid to pantoprazole. The patient has multiple risk factors for GI bleed with intubation, supratherapeutic INR and will benefit from pantoprazole. Targeted blood sugar less than 180 mg/dL. Attestations Medical Necessity Statement*: Will defer to the primary team Coding Level of Care Code Acute Manager Sustainability for g Fwd Diagnoses Cardiac arrest I46.9 Multiorgan failure Cardiogenic shock R57.0 Aortic regurgitation I35.1 Status post mitral valve replacement Z95.2 Emphysema lung J43.9 Metabolic acidosis E87.2 Acute pyelonephritis N10
[2020-10-13 17:08] LABS: Glucose Point of Care 78 mg/dL (70-110)
[2020-10-13 17:08] LABS: Glucose Point of Care 90 mg/dL (70-110)
[2020-10-13 17:08] LABS: Glucose Point of Care 78 mg/dL (70-110)
[2020-10-13] MEDS: dilTIAZem 60 mg Tablet OG-TUBE (18:03)
[2020-10-13 18:06] LABS: Albumin Level 2.9 g/dL (3.5-5.2); Alkaline Phosphatase 152 IU/L (35-105); Anion Gap 20.5 (5-19); Blood Urea Nitrogen 37 mg/dL (8-23); Calcium 8.5 mg/dL (8.5-10.5); Carbon Dioxide 25 mmol/L (22-29); Chloride 101 mmol/L (98-107); Globulin 3.2 g/dL (1.3-4.6); Glucose 105 mg/dL (65-115); Magnesium 2.2 mg/dL (1.7-2.3); Osmolality Calculated 303 mOsm/kg (285-295); Phosphorus 5.3 mg/dL (2.5-4.5); Potassium 4.5 mmol/L (3.5-5.1); Sodium 142 mmol/L (136-145); Total Bilirubin 1.7 mg/dL (0.15-1.2); Total Protein 6.1 g/dL (6.6-8.7)
[2020-10-13 18:21] LABS: Alanine Aminotransferase 3394 U/L (0-33); Aspartate Amino Transferase 3984 U/L (0-32)
[2020-10-13 18:46] LABS: Glucose Point of Care 80 mg/dL (70-110)
[2020-10-13] MEDS: sodium chloride 0.9% 250 ML IV (19:57)
--- NOTE | 2020-10-13 20:16 | PC.NURSE ---
Addendum entered by Kanwal Rodriguez RN 10/13/20 20:39: Blood sugars throughout the day 78-104. Original Note: Shift summary: pt remains intubated and sedated. No changes on vent settings this shift. Fentanyl at 10mcg/hr and Versed at 4 mg/hr, no changes in rates today. INR improved, at 8. OG intact. Re-warming in progress. Cooling machine, dumped water and needed to be turned off for 2 hours to rest. Pt's max temp during this time 96F. NO purposeful movements noted. Her feet have moved. This am she had a brief episode( 2 minutes) of shaking (mostly her arms), her feet were shaking but had reflexive movements. Dr Nixon at bedside, said shivering most likely . She had two more brief episodes the following hour. No m ore noted throughout the day. Her extremities remain mottled/ purple. Urine output f 425ml urine now cloudy, darker yellow with a pink tinge. Son , Raghu Darby, came in at visiting hours. Raghu understands severity of situation and pt needs to be off sedation and warm to evaluate neurological status.
[2020-10-13 21:59] LABS: Albumin Level 3.1 g/dL (3.5-5.2); Alkaline Phosphatase 161 IU/L (35-105); Blood Urea Nitrogen 41 mg/dL (8-23); Calcium 8.2 mg/dL (8.5-10.5); Carbon Dioxide 26 mmol/L (22-29); Chloride 98 mmol/L (98-107); Globulin 3.4 g/dL (1.3-4.6); Glomerular Filtration Rate 26.4 mL/min (90-130); Glucose 116 mg/dL (65-115); Osmolality Calculated 297 mOsm/kg (285-295); Sodium 138 mmol/L (136-145); Total Bilirubin 1.6 mg/dL (0.15-1.2); Total Protein 6.5 g/dL (6.6-8.7)
[2020-10-13 22:01] LABS: Anion Gap 18.3 (5-19); Potassium 4.3 mmol/L (3.5-5.1)
[2020-10-13 22:17] LABS: Alanine Aminotransferase 3559 U/L (0-33)
[2020-10-13 22:20] LABS: Aspartate Amino Transferase 3537 U/L (0-32)
[2020-10-14] VITALS (64 sets, daily range): BP systolic 81–168; BP diastolic 43–77; PULSE 84–108; RESP 16–25; TEMP 2.8–37.1; O2SAT 89–99; BMI 24.7
[2020-10-14] MEDS: hydrocortisone 100 mg/2 mL SDV 50 MG IVP (02:06)
[2020-10-14] MEDS: ipratropium-albuterol 3 mL Neb INHALATION ×4 (02:22→20:01)
[2020-10-14 03:59] LABS: Basophils # 0.1 10^3/uL (0.0-0.1); Basophils % 0.3 %; Hematocrit 29.9 % (37.0-47.0); Hemoglobin 9.5 g/dL (11.5-15.3); Lymphocytes # 0.4 10^3/uL (0.8-4.8); Lymphocytes % 2.1 %; Mean Corpuscular HGB Conc 31.8 g/dL (30.0-36.0); Mean Corpuscular Hemoglobin 31.5 pg (28.0-34.0); Mean Platelet Volume 11.4 fL (7.4-10.4); Monocytes # 0.5 10^3/uL (0.2-0.9); Monocytes % 2.9 %; Neutrophils # 17.17 10^3/uL (1.8-7.7); Neutrophils % 93.9 %; Nucleated Red Blood Cells # 0.5 /100WBC; Nucleated Red Blood Cells % 2.9 %; Platelet Count 248 10^3/cmm (130-400); Red Blood Count 3.02 10^6/uL (4.1-5.3); Red Cell Distribution Width 17.6 % (12.1-15.1); White Blood Count 18.3 10^3/uL (4.0-10.0)
[2020-10-14 04:21] LABS: Procalcitonin 1.38 ng/mL (0-0.5)
[2020-10-14 04:23] LABS: Albumin Level 2.8 g/dL (3.5-5.2); Alkaline Phosphatase 202 IU/L (35-105); Anion Gap 16.4 (5-19); Blood Urea Nitrogen 43 mg/dL (8-23); C Reactive Protein 90.3 mg/L (0.0-4.9); Calcium 8.6 mg/dL (8.5-10.5); Carbon Dioxide 26 mmol/L (22-29); Chloride 99 mmol/L (98-107); Globulin 2.9 g/dL (1.3-4.6); Glomerular Filtration Rate 24.9 mL/min (90-130); Glucose 145 mg/dL (65-115); Magnesium 2.2 mg/dL (1.7-2.3); Osmolality Calculated 299 mOsm/kg (285-295); Phosphorus 4.5 mg/dL (2.5-4.5); Potassium 3.4 mmol/L (3.5-5.1); Sodium 138 mmol/L (136-145); Total Bilirubin 1.7 mg/dL (0.15-1.2); Total Protein 5.7 g/dL (6.6-8.7)
[2020-10-14 04:25] LABS: Lactate (Lactic Acid level) 1.6 mmol/L (0.5-2.2)
[2020-10-14 04:35] LABS: Alanine Aminotransferase 2806 U/L (0-33)
[2020-10-14 04:36] LABS: Creatine Phosphokinase 315 U/L (26-192)
[2020-10-14 04:41] LABS: Aspartate Amino Transferase 2410 U/L (0-32)
[2020-10-14 05:12] LABS: Slide Review Slide Review Perform
[2020-10-14 05:13] LABS: ABG PCO2 57.2 mmHg (35-45); Arterial Blood Gas Hematocrit 30.8 % (37-47); Base Excess ABG 1.1 mmol/L (-2.0-2.0); Blood Gas Operator Identificat JB; Blood Gas Sample Site ARTLINE; Blood Gas Sample Type Arterial; HCO3 ABG 28.2 mmol/L (22-26); Oxygen Device VENT; PO2 ABG 78.8 mmHg (80.0-100.0)
[2020-10-14 05:14] LABS: Blood Gas Tidal Volume 0.45
[2020-10-14 05:24] LABS: Glucose Point of Care 147 mg/dL (70-110)
[2020-10-14 05:29] LABS: INR 8.02 (0.8-1.2)
--- NOTE | 2020-10-14 06:00 | ECG_ITS ---
[facility] Test Date: 2020-10-14 Pat Name: Clementina Mcghee Department: Room: ICU11 Gender: Female Cadmium Burner: : 1955 Requested By: Can Nixon Order Number: [id number] Reading MD: LINDA CAI Measurements Intervals [place] Rate: 88 P: 262 IN: 206 QRS: -31 QRSD: 178 T: 132 QT: 416 QTc: 505 Interpretive Statements ECTOPIC ATRIAL RHYTHM MARKED LEFT AXIS DEVIATION [QRS AXIS < -30] LEFT BUNDLE BRANCH BLOCK [120+ ms QRS DURATION, 80+ ms Q/S IN V1/V2, 85+ ms R IN I/aVL/V5/V6] Compared to ECG 10/13/2020 06:03:18 Ectopic atrial rhythm now present Left-axis deviation now present Sinus rhythm no longer present First degree AV block no longer present Electronically Signed On 10-14-2020 20:27:12 CDT by LINDA CAI [id number]
--- NOTE | 2020-10-14 07:00 | XR_ITS ---
WS: [id number] Portable AP supine chest, 10/14/2020 Clinical Data: sob Comparison: Portable chest, 10/13/2020 Findings: The endotracheal tube and nasogastric tube remain in same position. There is a cardiac yumiko toring device over the central portion of the heart. Midline sternotomy sutures with an artificial he art valve again are seen. Bilateral pulmonary opacities remain unchanged. There is a small left effus ion. Monitor leads are on the chest wall. There is a left subclavian stent. The left lower rib fractu res are seen. XR/XR chest 1V portable [id number] Impression: No change from yesterday's chest.
[2020-10-14 07:21] LABS: Glucose Point of Care 104 mg/dL (70-110)
[2020-10-14 07:21] LABS: Glucose Point of Care 126 mg/dL (70-110)
[2020-10-14 07:21] LABS: Glucose Point of Care 83 mg/dL (70-110)
--- NOTE | 2020-10-14 07:47 | PC.NURSE ---
cooling blanket set at 37.0 auto temp 37.1
[2020-10-14] MEDS: piperacillin-tazobactam 3.375 GM in sodium chloride 0.9% (plus) 50 ML IV ×2 (07:50→19:31)
--- NOTE | 2020-10-14 07:59 | PC.NURSE ---
rocuronium and etomidate cleared from sep. d/t pt. already intubated. came from e.d.
--- NOTE | 2020-10-14 08:24 | CTR_ITS ---
PROCEDURE INFORMATION: Exam: CT Head Without Contrast Exam date and time: 10/14/2020 2:00 PM Age: 65 years old Clinical indication: Altered mental status/memory loss; Additional info: Post code, twitching TECHNIQUE: Imaging protocol: Computed tomography of the head without contrast. Sagittal and coronal reformatted images were created and reviewed. Radiation optimization: All CT scans at this facility use at least one of these dose optimization techniques: automated exposure control; mA and/or kV adjustment per patient size (includes targeted exams where dose is matched to clinical indication); or iterative reconstruction. COMPARISON: CT head wo con* [id number] 10/11/2020 7:51 PM RADIATION DOSE METRICS: Total DLP (mGy-cm): 980.24 FINDINGS: Limitations: Motion artifact on multiple images that can limit evaluation. Tubes, catheters and devices: Enteric and endotracheal tubes are seen on the special programs director image. Tips are not included in the study. Brain: No acute intracranial hemorrhage. No acute infarct. No intra-axial or extra-axial masses. Rutledge-white matter differentiation is preserved. No cerebral edema. No extra-axial fluid collections. No midline shift. No evidence for Chiari 1 malformation. Cerebral ventricles: No hydrocephalus. Bones/joints: No acute fracture. Paranasal sinuses: Small air-fluid level in the left maxillary sinus that is new compared with the previous study. Other visualized paranasal sinuses are clear. Mastoid air cells: Small amount of fluid in the right and left mastoid air cells. Orbital cavity: Globes and lenses, extraocular muscles, and optic nerves are intact bilaterally. No acute intraorbital abnormality. Vasculature: Moderate atherosclerotic changes in the visualized arteries. Soft tissues: No acute abnormality of the extracranial soft tissues. CT/CT head wo con* [id number] IMPRESSION: 1. Motion artifact on multiple images that can limit evaluation. Otherwise, no acute abnormality of the brain. 2. Small air-fluid level in the left maxillary sinus that is new compared with the previous study. Findings raise concern for acute sinusitis. Recommend clinical correlation. 3. Small amount of fluid in the right and left mastoid air cells. 4. Incidental/nonacute findings are listed in the report. Radiation Dose CTDIVOL = (mGy): DLP = 980.24 (mGy-cm)
--- NOTE | 2020-10-14 08:25 | PC.NURSE ---
dr. telles in. note some movement of lower ext.
[2020-10-14] MEDS: lidocaine 1% 5 ML in potassium chloride premix 100 ML 25 ML IV (09:42)
[2020-10-14] MEDS: FUROsemide 10 mg/mL SDV 4mL 40 MG IVP (09:43)
[2020-10-14] MEDS: pantoprazole 40 mg SDV IVP ×2 (09:43→21:28)
--- NOTE | 2020-10-14 10:00 | PC.NURSE ---
diltiazem held d/t b/p going down and giving lasix
--- NOTE | 2020-10-14 10:29 | PC.CHAP ---
Pastoral Care Encounter/Spiritual Assessment Type of Contact [] Declined news cameraman visit [] Patient/Family/Request visit [] Outpatient visit [] Follow-up visit [] Physician referral [] Code/Alert [x] Routine visit [] Staff referral [] Actively dying [] Patient sleeping [] Family support [] [] Out of room [] Palliative care [] [] Receiving care in room [] Pre-surgical visit [] Trauma [] Long length of stay [x] ICU visit [x] Other: ventilator Relational/Emotional Strength [] Patient feels connected with others/family/visitors/staff [] Distress [] Loneliness/isolation [] Abandonment Spirituality of Patient [] Person of Dawna [] Attends Nondenominational of their Dawna [] Believes in Prayer [] Reads Bible or Taoist materials [] There are Spiritual issues to be addressed Leather Lacer Interventions [x] Prayer [] Active listening [] Non-anxious presence [] Spiritual/emotional support [] Crisis/trauma care [] Spiritual counseling [] Bereavement support [] Provided bereavement packet [] Provided Bible/devotional materials [] Provided toy/stuffed animal, coloring book to patient or family member [] Provided Communion [] Anointing/Melvin [] Salvation [x] Completed spiritual assessment [] Other: Impact on Illness or Injury [] Angry [] Fearful [] Anxious [] Often cries [] Exhaustion [] Unable to work [] Unable to attend mormon [] Unable to walk/stand [] Unable to read [] Unable to drive [] Unable to eat/drink [] Unable to sleep [] Unable to be with family [] Patient intubated [] Other: Summary Time spent with patient
[2020-10-14 10:49] LABS: Vancomycin Trough 13.1 ug/mL (10-15)
[2020-10-14] MEDS: vancomycin 750 MG in sodium chloride 0.9% 250 ML 250 MG IV (11:55)
--- NOTE | 2020-10-14 12:45 | PC.NURSE ---
dr. telles notified of high peak pressures. back to nichelle and shira.
--- NOTE | 2020-10-14 12:47 | P.PN_ITS ---
Subjective Subjective: Interval history: Overnight patient's urine output did decrease, she was given a fluid bolus, she was put back on Levophed, currently at 9, remains afebrile, normotensive, no significant arrhythmia events, this morning her pupils are equal round reactive to light, she does withdraw from pain, does have flexor posturing, she is still undergoing the rewarming protocol, yesterday afternoon nurses noted some twitching/shivering, this morning I have observed some twitching episodes Vitals/I&O/Wt Last Vital Signs Temp 98.3 F 10/14/20 12:00 Pulse 96 10/14/20 12:00 Resp 22 H 10/14/20 11:56 BP 138/60 10/14/20 12:00 Pulse Ox 97 10/14/20 12:00 10/13/20 10/14/20 10/14/20 22:59 06:59 14:59 Intake Total 500 / 959.533 346.228 / 1305.761 266.732 / 266.732 Output Total 75 / 425 115 / 540 77 / 77 Balance 425 / 534.533 231.228 / 765.761 189.732 / 189.732 Weight last 48 hrs Weight 65.453 kg Physical Exam Narrative: EXAM NARRATIVE: Intubated, sedated on the ventilator HENMT: COMMON NORMALS: normocephalic HEAD & SCALP: normocephalic Eye: COMMON NORMALS: Equal, round and reactive pupils present PUPIL: Yes Equal, round and reactive pupils present OTHER: Pupils equal round reactive to light Neck/C-Spine: COMMON NORMALS: no lymphadenopathy and no JVD Lymph: LYMPHATIC: no lymphadenopathy noted Chest: COMMONS NORMALS: normal inspection of the chest Resp: COMMON NORMALS: normal respiratory effort, No retractions and No use of accessory muscles AUSCULTATION: crackles and rhonchi Cardio: COMMON NORMALS: no JVD, S1 normal heart sound present and S2 normal heart sound present RATE: bradycardic HEART SOUNDS: S1 normal heart sound present, S2 normal heart sound present and no murmurs GI: COMMON NORMALS: Normal to inspection, nondistended, normoactive bowel sounds present, Soft to palpation, non-tender and No hepatosplenomegaly present PALPATION: Yes Soft to palpation and Yes No hepatosplenomegaly present OTHER: Surgical incision scar linear, looks clean and dry Extremity: COMMON NORMALS: no pedal edema NARRATIVE EXTREMITY EXAM: -Does withdraw from pain, some degree of flexor posturing -Does have twitching movements of upper and lower extremities OTHER: DP PT pulses palpable, does have bluish discoloration of bilateral lower extremities, and of hands Pale complexion Capillary refill greater than 2 seconds Urinary Catheter Management^: Conn: Cath Placed During This Visit: yes Reason for Continuing Indwelling Catheter: Accurate Measurement of Urinary Output in Critically Ill Patients Urinary Catheter Date of Insertion: 10/11/20 Urinary Catheter Time of Insertion: 23:00 Data : 10/14/20 03:15 10/14/20 03:15 Micro: Microbiology 10/11/20 17:11 Urine Culture - Final Urine,Clean Catch A&P Assessment and plan (1) Hypoxic brain injury: -Pupils are equal round reactive to light, does withdraw from pain to some degree -Does have myoclonic jerks, which can be seen in post cardiac arrest patient, but difficult to differentiate between seizures Plan: -Daily weaning trials, assess neurologic status -We will perform CT of the head -We will perform EEG -I will hold off on prophylactic seizure medications, can titrate sedation medications to suppress myoclonic jerks -Unfortunately we do not have neurology coverage -If there is any evidence of cerebral edema, concerns for continuous seizures, hyperthermic episodes, we might need to transfer her for higher level care for neurology and continuous EEG monitoring Status: Acute (2) Septic shock: -Septic shock secondary to bilateral pyelonephritis, and bilateral pneumo ahmet -Status post cardiac arrest, rosc episodes of V. tach -Acute respiratory failure with hypoxia -Acute heart failure, with atrial fibrillation -With multiorgan failure -Acute renal failure -Acute liver failure -Lactic acidosis, metabolic acidosis -NSTEMI -DIC Plan: -Admit to ICU -Currently intubated, mechanically ventilated on fentanyl and Versed, paralytic vercuronium -Minimize PEEP, minimize FiO2, daily weaning trials -Chest x-ray this morning does show pulmonary vascular congestion, pulmonary edema -Urine output decreased overnight to 250 cc, creatinine up to 2.0, will give another Lasix trial -Continue Levophed, maintain map greater than 75 -Status post 1 unit FFP -Off bicarb drip -Hydrocortisone 50 every 6 hours currently on hold -Started p.o. Cardizem 30 every 6 hours for atrial fibrillation, anticoagulation currently contraindicated given INR of 8 -Broad-spectrum antibiotic coverage vancomycin, Zosyn -Currently off insulin drip, currently on subcu insulin monitor blood sugars every 2 hours -Currently undergoing rewarming process, monitor electrolytes, monitor potassium, monitor for arrhythmia events, monitor blood sugars, monitor INR monitor for risk of infection -Cardiac echocardiogram ordered shows EF of 15 to 20%, severe global hypokinesis, -Femoral line in place, arterial line in place -Pulmonary on consult -Protonix for GI prophylaxis -Lovenox on hold given elevated INR -Status is critical, prognosis is guarded Status: Acute (3) Acute respiratory failure with hypoxia: Secondary to pneumonia, fluid overload, cardiogenic pulmonary edema History of underlying emphysema Status: Acute (4) Cardiac arrest: -History of ischemic cardiomyopathy EF of 20% -Cardiac arrest during intubation attempt -Cardiac arrest lasting 15 minutes, with CPR -Return of spontaneous regulation -Also developed V. tach Status: Acute (5) NSTEMI (non-ST elevated myocardial infarction): -Likely secondary to sepsis, cardiogenic shock -Trend troponins, serial EKGs -EF 15 to 20%, severe global hypokinesis Status: Acute (6) Acute pyelonephritis: Incidentally noted on CT. Interestingly urinalysis not particularly suggestive of pyelonephritis. Urine culture pending. Blood culture collected. Status: Acute (7) Multiorgan failure: Status: Acute (8) Thickening of wall of gallbladder: There is moderate transaminitis, AST: ALT ~2-1 pattern, although she does not drink alcohol, CK normal. Alk phos moderately elevated at 130. T bili normal. Mild right upper quadrant tenderness, however, more tender in epigastrium, and possibly some radiation. On CT some thickening noted in the gallbladder. No significant surrounding inflammation. Zosyn as above. Follow blood cultures. Liver ultrasound liver ultrasound shows hepatomegaly with diffuse fatty infiltration, shows hepatomegaly, no CBD dilatation. Status: Acute (9) Transaminitis: Secondary to shock Status: Acute (10) Tongue lesion: Round ecchymotic appearance of lesion on anterolateral right side of the tongue. Neither she and her son remember when this is appeared. This may be trauma secondary to bite due to supratherapeutic INR. She denies any pain or recollection of injuring her tongue. Discussed possibility with her and her son regarding embolic disease. They are agreeable at this time to continue anticoagulation, will try to gently taper off warfarin. Hold today, once INR coming down to therapeutic consider either transition to heparin if there is any concern regarding septic embolic disease, or continuing warfarin. Continue monitoring INR. Anticipate changing warfarin requirement while amiodarone is being held. CT head obtained, does not appear to have any hemorrhages or punctate lesions, although noncontrast study. Exam grossly nonfocal, however. Bilateral pyelonephritis findings as above. 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 CRP is elevated, despite being on steroids, higher than ever previously. Continue anticoagulation, hydroxychloroquine. Steroid. Statin on hold for now, but would resume in case liver parameters improving. Add lupus anticoagulant, anticardiolipin antibody, beta-2 glycoprotein antibody. 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 Not hypotensive. Status: Acute (13) Elevated brain natriuretic peptide (BNP) level: Secondary to valvular heart disease. With pulmonary fibrosis and pulmonary hypertension Status: Acute (14) Pulmonary fibrosis: Status: Acute (15) Steroid-induced gastritis: Famotidine IV. Zofran as needed for nausea. Monitor QT. Once vomiting subsides consider sucralfate. Status: Acute (16) Supratherapeutic international normalized ratio (INR): Hold warfarin for now. Reassess INR in the morning, adjust accordingly or consider transition to heparin or holding entirely in and results came back co raquel for septic emboli. Status: Acute (17) Hx of mitral valve repair: Status: Acute (18) Lactic acidosis: Status: Acute (19) DIC (disseminated intravascular coagulation): Status: Acute (20) Pneumonia: Status: Acute Additional A&P Information Cardiomyopathy Rheumatoid arthritis Possible PMR Nonobstructive CAD PAD with left clavicular artery stenting HTN HLD Plan for today continue rewarming protocol, monitor potassium, trend blood sugars, monitor heart rates, continue antibiotics, monitor urine output, neurochecks Attestations Medical Necessity Statement*: Patient requires hospitalization, for cardiac arrest, hypoxic brain injury, acute respiratory failure, pneumonia, pyelonephritis, septic shock, critical care time spent over an hour I have discussed patient's stable, guarded prognosis with Raghu her son, discussed the case with him, all questions answered Coding Level of Care Code Acute Electrical Logging Operator for [facility] Fwd Diagnoses Hypoxic brain injury G93.1 Septic shock A41.9; R65.21 Acute respiratory failure with hypoxia J96.01 Cardiac arrest I46.9 NSTEMI (non-ST elevated myocardial infarction) I21.4 Acute pyelonephritis N10 Multiorgan failure Thickening of wall of gallbladder K82.8 Transaminitis R74.01 Tongue lesion K14.8 Livedo reticularis R23.1 Cyanosis R23.0 Elevated brain natriuretic peptide (BNP) level R79.89 Pulmonary fibrosis J84.10 Steroid-induced gastritis K29.60; T38.0X5A Supratherapeutic international normalized ratio (INR) R79.1 Hx of mitral valve repair Z98.890 Lactic acidosis E87.2 DIC (disseminated intravascular coagulation) D65 Pneumonia J18.9
--- NOTE | 2020-10-14 14:17 | PC.SOCIAL ---
*IMM UPDATE* Multi Share Program Coordinator gave IMM update to pt's son, Raghu via phone. Understood, 10/14/20 @ 1410 Initialed, dated, timed and placed in chart.
--- NOTE | 2020-10-14 15:31 | PM.PN ---
Subjective Subjective: Interval history: The patient was seen and examined. Her sedation was reduced earlier today. No need for medication with the patient. When I evaluate the patient the patient was on 4 mg of Versed and 50 mcg of fentanyl. The patient is completely vent compliant. Currently on 8 mcg of Levophed. I have performed a bedside ultrasound. Her IVC is 2 cm without any respirophasic variation. There is bilateral B-lines improved compared to before. Medications: Reviewed: Yes Vitals/I&O/Wt Last Vital Signs Temp 98.3 F 10/14/20 12:00 Pulse 96 10/14/20 14:06 Resp 18 10/14/20 14:00 BP 138/60 10/14/20 12:00 Pulse Ox 94 10/14/20 14:00 10/14/20 10/14/20 10/14/20 06:59 14:59 22:59 Intake Total 346.228 / 1305.761 266.732 / 266.732 Output Total 115 / 540 77 / 77 Balance 231.228 / 765.761 189.732 / 189.732 Weight last 48 hrs Weight 144 lb 4.8 oz Physical Exam Narrative: EXAM NARRATIVE: General: The patient is intubated and sedated HEENT: Minimally reactive pupil Respiratory: Auscultation: Bilateral crackles, no wheezing or rhonchi Cardiovascular: Regular rate and rhythm, S1-S2 present, soft heart sound, no peripheral edema, cyanotic discoloration of lower extremity digits Abdomen: Soft, nondistended, very sluggish bowel sound Neuro: Responds to painful stimulus Urinary Catheter Management^: Conn: Cath Placed During This Visit: yes Reason for Continuing Indwelling Catheter: Accurate Measurement of Urinary Output in Critically Ill Patients Urinary Catheter Date of Insertion: 10/11/20 Urinary Catheter Time of Insertion: 23:00 Data : 10/14/20 03:15 10/14/20 03:15 Micro: Microbiology 10/11/20 17:11 Urine Culture - Final Urine,Clean Catch Attestation for Other Data: I personally reviewed and interpreted the following: Other data: I have reviewed the patient laboratory microbiologic and neurologic data. Patient has mild leukocytosis. All microbiologic studies are negative. There is mild worsening of the creatinine. A&P Assessment and plan (1) Cardiac arrest: The patient is status post cardiac arrest on October 12. She has undergone targeted temperature management. She is on a small dose of Levophed currently. Her IVC is 2 cm without respirophasic variation. Noninvasive assessment of hemodynamic showed high peripheral vascular resistance with low cardiac output consistent with cardiogenic shock. Status: Acute (2) Multiorgan failure: All her numbers are getting better at this point Status: Acute (3) Cardiogenic shock: Ongoing to start the patient on epinephrine with the cardiac output. I am hoping this would help with reduction of Levophed dose as well as better response to diuretic regimen. Status: Acute (4) Aortic regurgitation: Continue with supportive therapy for now. Status: Acute (5) Status post mitral valve replacement: The patient is anticoagulated. Current INR is 8. Status: Acute (6) Emphysema lung: The patient does have significant centrilobular and paraseptal emphysema from previous CT scans. Her latest CT scan revealed evidence of interstitial opacity on top of the centrilobular and paraseptal emphysema. It is unclear what the etiology is. The patient is being on amiodarone so pulmonary toxicity is a possibility. However, this could also be confounded by the presence of pulmonary edema in the setting of severe mitral regurgitation and cardiogenic pulmonary edema. Once the patient is adequately diuresed this will need to be addressed further. Which will also help if there is any amiodarone induced toxicity. Status: Acute (7) Metabolic acidosis: This is resolved. Status: Acute (8) Acute pyelonephritis: The patient is broadly covered with vancomycin and Zosyn currently. There is no evidence of MRSA infection and will discontinue the vancomycin. Status: Acute Additional A&P Information I have switched her Pepcid to pantoprazole. The patient has multiple risk factors for GI bleed with intubation, supratherapeutic INR and will benefit from pantoprazole. Targeted blood sugar less than 180 mg/dL. Attestations Medical Necessity Statement*: Will defer to the primary team Coding Level of Care Code Acute Registered Radiologic Technologist for [place] [facility] Diagnoses Cardiac arrest I46.9 Multiorgan failure Cardiogenic shock R57.0 Aortic regurgitation I35.1 Status post mitral valve replacement Z95.2 Emphysema lung J43.9 Metabolic acidosis E87.2 Acute pyelonephritis N10
--- NOTE | 2020-10-14 15:40 | PC.NURSE ---
[place] Monitor Non invasive.
[2020-10-14] MEDS: dexmedetomidine 400 MCG in sodium chloride 0.9% (100 ml) 100 ML 9.8 MCG IV (17:00)
[2020-10-14 18:35] LABS: Albumin Level 2.6 g/dL (3.5-5.2); Alkaline Phosphatase 148 IU/L (35-105); Anion Gap 15.5 (5-19); Blood Urea Nitrogen 47 mg/dL (8-23); Calcium 8.2 mg/dL (8.5-10.5); Carbon Dioxide 26 mmol/L (22-29); Chloride 105 mmol/L (98-107); Globulin 2.8 g/dL (1.3-4.6); Glomerular Filtration Rate 21.2 mL/min (90-130); Glucose 145 mg/dL (65-115); Osmolality Calculated 309 mOsm/kg (285-295); Potassium 4.5 mmol/L (3.5-5.1); Sodium 142 mmol/L (136-145); Total Bilirubin 1.9 mg/dL (0.15-1.2); Total Protein 5.4 g/dL (6.6-8.7)
[2020-10-14 18:50] LABS: Alanine Aminotransferase 2121 U/L (0-33)
[2020-10-14 18:55] LABS: Aspartate Amino Transferase 1074 U/L (0-32)
[2020-10-14] MEDS: sodium chloride 0.9% 1,000 ML 75 ML IV (18:55)
--- NOTE | 2020-10-14 19:06 | PC.NURSE ---
1615. erik laurent. h.r.-105, svi-18, c.i.-1.9
--- NOTE | 2020-10-14 19:07 | PC.NURSE ---
1630-h.r. 103, svi18, c.i.-1..9 1645-h.r.99. svi-17, c.i.-1.7. 1700: h.r.94, svi-20, c.i.-1.9. 1715:h.r.-90, svi-22. c.i.2.0. 1730:h.r.-86, svi-22, c.i.-1.9. 1745: h.r.-83, svi-22, c.i.-1.8. 1800:h.r.-85, svi-23, c.i.-1.9. 1830: h.r. 84, svi-27, c.i.-2.2
[2020-10-14] MEDS: EPINEPHrine 2.5 MG in sodium chloride 0.9% 250 ML 47.9 MG IV (19:44)
[2020-10-14] MEDS: sodium chloride 0.9% 500 ML IV (20:18)
[2020-10-14 20:23] LABS: Glucose Point of Care 132 mg/dL (70-110)
[2020-10-14 20:23] LABS: Glucose Point of Care 139 mg/dL (70-110)
[2020-10-14 20:23] LABS: Glucose Point of Care 111 mg/dL (70-110)
[2020-10-14 20:23] LABS: Glucose Point of Care 113 mg/dL (70-110)
[2020-10-14 20:23] LABS: Glucose Point of Care 140 mg/dL (70-110)
[2020-10-14] MEDS: FUROsemide 10 mg/mL SDV 10mL 60 MG IVP (20:44)
[2020-10-15] VITALS (93 sets, daily range): BP systolic 70–171; BP diastolic 38–85; PULSE 81–113; RESP 7–19; TEMP 36.6–36.9; O2SAT 91–100; BMI 29.5
[2020-10-15] MEDS: dexmedetomidine 400 MCG in sodium chloride 0.9% (100 ml) 100 ML 15.3 MCG IV (00:19)
[2020-10-15 01:11] LABS: Glucose Point of Care 154 mg/dL (70-110)
[2020-10-15 01:11] LABS: Glucose Point of Care 126 mg/dL (70-110)
[2020-10-15 01:11] LABS: Glucose Point of Care 145 mg/dL (70-110)
[2020-10-15] MEDS: EPINEPHrine 2.5 MG in sodium chloride 0.9% 250 ML 28.5 MG IV (01:28)
[2020-10-15] MEDS: dilTIAZem 30 mg Tablet OG-TUBE ×3 (02:11→20:23)
[2020-10-15] MEDS: ipratropium-albuterol 3 mL Neb INHALATION ×4 (02:43→20:24)
[2020-10-15 03:53] LABS: Hematocrit 28.5 % (37.0-47.0); Hemoglobin 9.2 g/dL (11.5-15.3); Mean Corpuscular HGB Conc 32.3 g/dL (30.0-36.0); Mean Corpuscular Hemoglobin 31.2 pg (28.0-34.0); Mean Corpuscular Volume 96.6 fL (81-99); Platelet Count 254 10^3/cmm (130-400); Red Blood Count 2.95 10^6/uL (4.1-5.3); Red Cell Distribution Width 17.7 % (12.1-15.1); White Blood Count 15.4 10^3/uL (4.0-10.0)
[2020-10-15 04:02] LABS: Partial Thromboplastin Time 58.5 SECONDS (23.9-36.7)
[2020-10-15 04:06] LABS: Fibrinogen 460 mg/dL (174-498)
[2020-10-15 04:10] LABS: Lactate (Lactic Acid level) 1.2 mmol/L (0.5-2.2)
[2020-10-15 04:12] LABS: D Dimer 6.69 ug/mIFEU (0-0.59)
[2020-10-15 04:17] LABS: Albumin Level 2.7 g/dL (3.5-5.2); Alkaline Phosphatase 151 IU/L (35-105); Anion Gap 15.5 (5-19); Blood Urea Nitrogen 45 mg/dL (8-23); Calcium 8.5 mg/dL (8.5-10.5); Carbon Dioxide 27 mmol/L (22-29); Chloride 101 mmol/L (98-107); Globulin 2.9 g/dL (1.3-4.6); Glomerular Filtration Rate 22.3 mL/min (90-130); Glucose 182 mg/dL (65-115); Magnesium 1.9 mg/dL (1.7-2.3); Osmolality Calculated 306 mOsm/kg (285-295); Phosphorus 3.6 mg/dL (2.5-4.5); Potassium 3.5 mmol/L (3.5-5.1); Sodium 140 mmol/L (136-145); Total Bilirubin 2.3 mg/dL (0.15-1.2); Total Protein 5.6 g/dL (6.6-8.7)
[2020-10-15 04:30] LABS: Absolute Neutrophil 13.9 10^3/cmm (1.4-6.5); Absolute Segmented Neutrophil 9.9 10/cmm (1.6-7.1); Alanine Aminotransferase 1957 U/L (0-33); Aspartate Amino Transferase 692 U/L (0-32); Blastocytes 0 % (0-0); Corrected White Blood Count 14.7 10^3/cmm (4.8-10.8); Eosinophils 0 %; Lymphocytes 1 %; Lymphocytes Absolute 0.2 10^3/cmm (1.2-3.4); Monocytes Absolute 0.6 10^3/cmm (0.1-0.6); Platelet Estimate Normal (Normal); Segmented Neutrophils 64 %; Total Cells Counted 100 (0-100)
[2020-10-15 04:31] LABS: Anisocytosis 2+; Burr Cells 1+; Macrocytosis 1+; Microcytosis 1+; Schistocytes 1+
[2020-10-15 04:37] LABS: Inhibitor Screen Reflex Negative (Negative); LA-Interp Not Indicated; PTT-LA 48 sec (<=40); Prothrombin Time 85 sec (<=45); Thrombin Time Reflex Negative (Negative)
[2020-10-15 04:40] LABS: INR 8.05 (0.8-1.2)
[2020-10-15 05:03] LABS: ABG PCO2 49.3 mmHg (35-45); ABG PH Result 7.38 (7.35-7.45); Arterial Blood Gas Hematocrit 29.2 % (37-47); Base Excess ABG 3.7 mmol/L (-2.0-2.0); Blood Gas Sample Site Not specified; Blood Gas Sample Type Arterial; Blood Gas Tidal Volume 0.45; HCO3 ABG 29.4 mmol/L (22-26); Oxygen Device VENT
[2020-10-15 05:09] LABS: Creatine Phosphokinase 128 U/L (26-192); Ferritin 657 ng/mL (15-150); NT Pro B Type Natriuretic Pept 7304 pg/mL (0-125); Procalcitonin 0.81 ng/mL (0-0.5)
[2020-10-15] MEDS: dexmedetomidine 400 MCG in sodium chloride 0.9% (100 ml) 100 ML 11.9 MCG IV (05:54)
--- NOTE | 2020-10-15 06:00 | ECG_ITS ---
[facility] Test Date: 2020-10-15 Pat Name: Clementina Mcghee Department: Room: ICU11 Gender: Female Geophysical Operator: : [id number] Requested By: Can Nixon Order Number: [id number] Andrea MD: Khushboo Dalton M.D. Measurements Intervals [place] Rate: 90 P: 55 DE: 238 QRS: -18 QRSD: 180 T: 104 QT: 395 QTc: 485 Interpretive Statements SINUS RHYTHM WITH FIRST DEGREE AV BLOCK LEFT BUNDLE BRANCH BLOCK [120+ ms QRS DURATION, 80+ ms Q/S IN V1/V2, 85+ ms R IN I/aVL/V5/V6] Compared to ECG 10/14/2020 06:08:12 First degree AV block now present Ectopic atrial rhythm no longer present Left-axis deviation no longer present Electronically Signed On 10-15-2020 21:16:45 CDT by Khushboo Dalton M.D. [id number]
[2020-10-15] MEDS: potassium chloride premix 100 ML 25 MEQ IV (06:03)
--- NOTE | 2020-10-15 06:39 | PC.NURSE ---
[facility] Numbers Q15 TIME SVI CI HR CO TPRI/PVR 1845 28 2.4 85 1900 28 2.4 86 1915 26 2.2 87 1930 22 2.3 105 4 1945 23 2.4 105 1999 23 2.4 103 4 3448 2014 24 2.4 101 3.9 2030 23 2.3 100 4 3313 2045 23 2.3 99 4.1 2702 2100 24 2.3 98 2115 26 2.5 99 4.3 2601 2130 24 2.4 100 2145 28 2.8 96 4.6 2200 27 2.6 96 2394 2215 28 2.7 95 4.3 2295 2230 27 2.6 95 2245 27 2.6 94 2300 27 2.6 94 2685 2315 27 2.5 95 4.2 2330 29 2.8 95 2345 28 2.7 96 2820 0 29 2.8 97 15 27 2.7 97 4.8 2511 30 28 2.7 97 45 29 2.7 92 4.4 2874 1 30 2.8 93 115 23 2.5 107 4.6 3373 130 28 2.6 95 145 27 2.5 92 4.4 2512 200 29 2.7 93 215 29 2.7 93 230 28 2.6 93 245 32 2.9 93 4.9 2326 3 32 3 94 315 27 2.5 94 330 28 2.6 93 345 31 2.8 88 5.1 1586 4 32 2.9 92 415 33 3.2 94 430 32 3 93 445 32 3 93 5 38 3.5 93 515 38 3.5 92 6.1 2234 530 41 3.8 93 545 41 3.6 88 6.6 1467 6 44 3.9 89 6.4
[2020-10-15] MEDS: piperacillin-tazobactam 3.375 GM in sodium chloride 0.9% (plus) 50 ML IV ×2 (06:47→20:23)
--- NOTE | 2020-10-15 07:00 | XR_ITS ---
WS: [id number] Portable AP upright chest, 10/15/2020 Clinical Data: sob Comparison: Portable chest, 10/14/2020 Findings: The endotracheal tube and nasogastric tube remain in good position. The bilateral pulmonary opacities have cleared slightly. Midline sternotomy sutures and artificial heart valve again are see n. The heart size is normal. Monitor leads and resuscitation paddles are overlying the chest. There i s a monitoring device overlying the lower chest. A left subclavian stent is present. XR/XR chest 1V portable [id number] Impression: 1. Slight improvement in bilateral lung opacities. 2. No change in position of multiple tubes.
[2020-10-15] MEDS: FUROsemide 10 mg/mL SDV 10mL 60 MG IVP (07:36)
[2020-10-15 08:01] LABS: Glucose Point of Care 147 mg/dL (70-110)
[2020-10-15] MEDS: pantoprazole 40 mg SDV IVP ×2 (09:54→22:03)
[2020-10-15 10:10] LABS: Glucose Point of Care 158 mg/dL (70-110)
--- NOTE | 2020-10-15 10:45 | PC.CHAP ---
Pastoral Care Encounter/Spiritual Assessment Type of Contact [] Declined postal superintendent visit [] Patient/Family/Request visit [] Outpatient visit [] Follow-up visit [] Physician referral [] Code/Alert [x] Routine visit [] Staff referral [] Actively dying [] Patient sleeping [] Family support [] [] Out of room [] Palliative care [] [] Receiving care in room [] Pre-surgical visit [] Trauma [] Long length of stay [x] ICU visit [x] Other: patient still on ventilator.. Relational/Emotional Strength [] Patient feels connected with others/family/visitors/staff [] Distress [] Loneliness/isolation [] Abandonment Spirituality of Patient [] Person of Dawna [] Attends Sikh of their Dawna [] Believes in Prayer [] Reads Bible or Buddhist materials [] There are Spiritual issues to be addressed Sort Manager Interventions [x] Prayer [] Active listening [] Non-anxious presence [] Spiritual/emotional support [] Crisis/trauma care [] Spiritual counseling [] Bereavement support [] Provided bereavement packet [] Provided Bible/devotional materials [] Provided toy/stuffed animal, coloring book to patient or family member [] Provided Communion [] Anointing/[place] [] Salvation [x] Completed spiritual assessment [] Other: Impact on Illness or Injury [] Angry [] Fearful [] Anxious [] Often cries [] Exhaustion [] Unable to work [] Unable to attend adventism [] Unable to walk/stand [] Unable to read [] Unable to drive [] Unable to eat/drink [] Unable to sleep [] Unable to be with family [] Patient intubated [] Other: Summary Time spent with patient
--- NOTE | 2020-10-15 12:07 | PM.PN ---
Subjective Subjective: Interval history: Patient was examined this morning, she remains on sedation, she was placed on epinephrine drip overnight, urine output has significantly improved, remains normotensive, rewarming protocol has completed, her temperature is within normal limits, this morning no twitching motions are seen, her pupils are equal round reactive to light, does not withdraw from pain Vitals/I&O/Wt Last Vital Signs Temp 97.8 F 10/15/20 07:30 Pulse 84 10/15/20 08:40 Resp 16 10/15/20 11:45 BP 114/58 10/15/20 08:30 Pulse Ox 95 10/15/20 11:45 10/14/20 10/15/20 10/15/20 22:59 06:59 14:59 Intake Total 715.938 / 1337.670 502.540 / 1840.210 184.219 / 184.219 Output Total 635 / 712 1500 / 2212 750 / 750 Balance 80.938 / 625.670 -997.460 / -371.790 -565.781 / -565.781 Weight last 48 hrs Weight 78.018 kg Weight 65.453 kg Physical Exam Narrative: EXAM NARRATIVE: Intubated, sedated on the ventilator Const: COMMON NORMALS: no acute distress HENMT: COMMON NORMALS: normocephalic HEAD & SCALP: normocephalic Eye: COMMON NORMALS: Equal, round and reactive pupils present PUPIL: Yes Equal, round and reactive pupils present OTHER: Pupils equal round reactive to light Neck/C-Spine: COMMON NORMALS: no JVD Lymph: LYMPHATIC: no lymphadenopathy noted Chest: COMMONS NORMALS: normal inspection of the chest Resp: COMMON NORMALS: normal respiratory effort, No retractions, No use of accessory muscles and clear to auscultation bilaterally AUSCULTATION: clear to auscultation bilaterally Cardio: COMMON NORMALS: no JVD, regular rate, regular rhythm, S1 normal heart sound present and S2 normal heart sound present RATE: regular rate RHYTHM: regular rhythm HEART SOUNDS: S1 normal heart sound present and S2 normal heart sound present GI: COMMON NORMALS: Normal to inspection, nondistended, normoactive bowel sounds present, Soft to palpation, non-tender, No hepatosplenomegaly present, no masses and no bruits PALPATION: Yes Soft to palpation and Yes No hepatosplenomegaly present OTHER: Surgical incision scar linear, looks clean and dry Extremity: COMMON NORMALS: capillary refill normal, no clubbing, cyanosis or edema, no calf tenderness and no pedal edema OTHER: DP PT pulses palpable, does have bluish discoloration of bilateral lower extremities, and of hands Pale complexion Urinary Catheter Management^: Conn: Cath Placed During This Visit: yes Reason for Continuing Indwelling Catheter: Accurate Measurement of Urinary Output in Critically Ill Patients Urinary Catheter Date of Insertion: 10/11/20 Urinary Catheter Time of Insertion: 23:00 Data : 10/15/20 03:42 10/15/20 03:42 Micro: Microbiology 10/11/20 17:11 Urine Culture - Final Urine,Clean Catch A&P Assessment and plan (1) Hypoxic brain injury: -Pupils are equal round reactive to light, does withdraw from pain to some degree -Does have myoclonic jerks, which can be seen in post cardiac arrest patient, but difficult to differentiate between seizures -Was given 1 dose of 1000 mg of Keppra yesterday afternoon -CT head the head no acute findings Plan: -Today we will take patient off sedation, and do neurologic testing -Daily weaning trials, assess neurologic status -We will perform EEG -I will hold off on prophylactic seizure medications -Unfortunately we do not have neurology coverage -If there is any evidence of cerebral edema, concerns for continuous seizures, hyperthermic episodes, we might need to transfer her for higher level care for neurology and continuous EEG monitoring Status: Acute (2) Septic shock: -Septic shock secondary to bilateral pyelonephritis, and bilateral pneumonia -Status post cardiac arrest, rosc episodes of V. tach -Acute respiratory failure with hypoxia -Acute heart failure, with atrial fibrillation -With multiorgan failure -Acute renal failure -Acute liver failure -Lactic acidosis, metabolic acidosis -NSTEMI -DIC Plan: -Admit to ICU -Currently intubated, mechanically ventilated on Precedex and fentanyl, paralytic vercuronium -Minimize PEEP, minimize FiO2, daily weaning trials -Tube feeds started today at 15 cc an hour, Jevity, free water flushes 100 cc every 4 hours -Chest x-ray this morning does show pulmonary vascular congestion, pulmonary edema -Urine output improved overnight with epinephrine drip, will give 1 dose of Lasix this morning 60 mg, urine output 2885 -Continue epinephrine drip, maintain map greater than 75 -Status post 1 unit FFP -Off bicarb drip -Hydrocortisone 50 every 6 hours currently on hold -Started p.o. Cardizem 30 every 6 hours for atrial fibrillation, anticoagulation currently contraindicated given INR of 8 -Broad-spectrum antibiotic coverage vanco, de-escalate to Zosyn mycin, Zosyn -Currently off insulin drip, currently on subcu insulin monitor blood sugars every 2 hours -Has finished rewarming process -Cardiac echocardiogram ordered shows EF of 15 to 20%, severe global hypokinesis, -Femoral line in place, arterial line in place -Pulmonary on consult -Protonix for GI prophylaxis -Lovenox on hold given elevated INR -Status is critical, prognosis is guarded Status: Acute (3) Acute respiratory failure with hypoxia: Secondary to pneumonia, fluid overload, cardiogenic pulmonary edema History of underlying emphysema Status: Acute (4) Cardiac arrest: -History of ischemic cardiomyopathy EF of 20% -Cardiac arrest during intubation attempt -Cardiac arrest lasting 15 minutes, with CPR -Return of spontaneous regulation -Also developed V. tach Status: Acute (5) NSTEMI (non-ST elevated myocardial infarction): -Likely secondary to sepsis, cardiogenic shock -Trend troponins, serial EKGs -EF 15 to 20%, severe global hypokinesis Status: Acute (6) Acute pyelonephritis: Incidentally noted on CT. Interestingly urinalysis not particularly suggestive of pyelonephritis. Urine culture pending. Blood culture collected. Status: Acute (7) Multiorgan failure: Status: Acute (8) Thickening of wall of gallbladder: There is moderate transaminitis, AST: ALT ~2-1 pattern, although she does not drink alcohol, CK normal. Alk phos moderately elevated at 130. T bili normal. Mild right upper quadrant tenderness, however, more tender in epigastrium, and possibly some radiation. On CT some thickening noted in the gallbladder. No significant surrounding inflammation. Zosyn as above. Follow blood cultures. Liver ultrasound liver ultrasound shows hepatomegaly with diffuse fatty infiltration, shows hepatomegaly, no CBD dilatation. Status: Acute (9) Transaminitis: Secondary to shock Status: Acute (10) Tongue lesion: Round ecchymotic appearance of lesion on anterolateral right side of the tongue. Neither she and her son remember when this is appeared. This may be trauma secondary to bite due to supratherapeutic INR. She denies any pain or recollection of injuring her tongue. Discussed possibility with her and her son regarding embolic disease. They are agreeable at this time to continue anticoagulation, will try to gently taper off warfarin. Hold today, once INR coming down to therapeutic consider either transition to heparin if there is any concern regarding septic embolic disease, or continuing warfarin. Continue monitoring INR. Anticipate changing warfarin requirement while amiodarone is being held. CT head obtained, does not appear to have any hemorrhages or punctate lesions, although noncontrast study. Exam grossly nonfocal, however. Bilateral pyelonephritis findings as above. 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 CRP is elevated, despite being on steroids, higher than ever previously. Continue anticoagulation, hydroxychloroquine. Steroid. Statin on hold for now, but would resume in case liver parameters improving. Add lupus anticoagulant, anticardiolipin antibody, beta-2 glycoprotein antibody. We will discuss with her cq developer when patient is clinically stable Status: Acute (12) Cyanosis: Possible Raynaud's as above. Not hypotensive. Status: Acute (13) Elevated brain natriuretic peptide (BNP) level: Secondary to valvular heart disease. With pulmonary fibrosis and pulmonary hypertension Status: Acute (14) Pulmonary fibrosis: Status: Acute (15) Steroid-induced gastritis: Famotidine IV. Zofran as needed for nausea. Monitor QT. Once vomiting subsides consider sucralfate. Status: Acute (16) Supratherapeutic international normalized ratio (INR): Hold warfarin for now. Reassess INR in the morning, adjust accordingly or consider transition to heparin or holding entirely in and results came back concerning for septic emboli. Status: Acute (17) Hx of mitral valve repair: Status: Acute (18) Lactic acidosis: Status: Acute (19) DIC (disseminated intravascular coagulation): Status: Acute (20) Pneumonia: Status: Acute Additional A&P Information Cardiomyopathy Rheumatoid arthritis Possible PMR Nonobstructive CAD PAD with left clavicular artery stenting HTN HLD Plan for today wean sedation, assess for neurologic status, monitor urine output, monitor hemodynamics, Attestations Medical Necessity Statement*: Patient cards hospitalization ICU, for cardiac arrest, septic shock, pneumonia, pyelonephritis, multiorgan failure, critical care time spent over an hour Coding Level of Care Code Acute Facilities [employer] for [employer] Diagnoses Hypoxic brain injury G93.1 Septic shock A41.9; R65.21 Acute respiratory failure with hypoxia J96.01 Cardiac arrest I46.9 NSTEMI (non-ST elevated myocardial infarction) I21.4 Acute pyelonephritis N10 Multiorgan failure Thickening of wall of gallbladder K82.8 Transaminitis R74.01 Tongue lesion K14.8 Livedo reticularis R23.1 Cyanosis R23.0 Elevated brain natriuretic peptide (BNP) level R79.89 Pulmonary fibrosis J84.10 Steroid-induced gastritis K29.60; T38.0X5A Supratherapeutic international normalized ratio (INR) R79.1 Hx of mitral valve repair Z98.890 Lactic acidosis E87.2 DIC (disseminated intravascular coagulation) D65 Pneumonia J18.9
--- NOTE | 2020-10-15 15:00 | P.PN_ITS ---
Subjective Subjective: Interval history: The patient was seen and examined. She has been off of sedation for the last 6 hours or so. Currently the patient is only responding to painful stimulus. Pupils are reactive. The patient yesterday was started on epinephrine drip. There had been a sign ificant improvement in cardiac output and urine output. The patient is almost 2 L negative. Her liver enzymes are coming down. Creatinine is stable at 2.2. The primary challenge at this point is her mental status. The CT scan of the head did not reveal any obvious abnormalities that would be consistent with hypoxic brain injury. Vitals/I&O/Wt Last Vital Signs Temp 98.5 F 10/15/20 12:00 Pulse 100 10/15/20 14:19 Resp 16 10/15/20 14:14 BP 123/56 10/15/20 13:15 Pulse Ox 96 10/15/20 14:14 10/15/20 10/15/20 10/15/20 06:59 14:59 22:59 Intake Total 502.540 / 1840.210 193.877 / 193.877 Output Total 1500 / 2212 1200 / 1200 Balance -997.460 / -371.790 -1006.123 / -1006.123 Weight last 48 hrs Weight 172 lb Weight 144 lb 4.8 oz Physical Exam Narrative: EXAM NARRATIVE: General: The patient is intubated. She has been of f of sedation for at least 6 hours. HEENT: Bilateral reactive people. Respiratory: Auscultation: Fine crackles at bilateral lung bases, no wheezing or rhonchi Cardiovascular: Regular rate and rhythm, S1-S2 present, soft heart sound, no peripheral edema, cyanotic discoloration of lower extremity digits which is better. The extremities are warm Abdomen: Soft, nondistended, positive bowel sounds Neuro: Responds to painful stimulus Urinary Catheter Management^: Conn: Cath Placed During This Visit: yes Reason for Continuing Indwelling Catheter: Accurate Measurement of Urinary Output in Critically Ill Patients Urinary Catheter Date of Insertion: 10/11/20 Urinary Catheter Time of Insertion: 23:00 Data : 10/15/20 03:42 10/15/20 03:42 Micro: Microbiology 10/14/20 10:25 MRSA Culture - Final Nose Attestation for Other Data: I personally reviewed and interpreted the following: Other data: I have reviewed the patient laboratory, microbiologic and radiologic data. All microbiologic studies has been negative so far. The patient has mild leukocytosis. Creatinine stable at 2.2. Electrolytes are within normal range. The chest x-ray (morning showed improvement of bilateral infiltrate. A&P Assessment and plan (1) Cardiac arrest: The patient is status post cardiac arrest on October 12. She has undergone targeted temperature management. The primary concern at this point is her mental status. CT scan of the head y esterday did not reveal any obvious hypoxic injury. The patient had been on Versed for a few days and given her kidney injury it might take a while for her to be showing signs of improvement. We will continue the supportive therapy for the time being. Status: Acute (2) Multiorgan failure: All her numbers are getting better at this point Status: Acute (3) Cardiogenic shock: The patient has done very well with the epinephrine drip. We were able to get rid of the Levophed after initiation of epinephrine drip. Her cardiac index has improved significantly. In addition, the peripheral vascular resistance has also gone down. There has been a significant improvement in cardiac output and all her extremities are warm. There has been improvement in the chest x-ray as well. We will continue with the diuresis for the time being. Status: Acute (4) Aortic regurgitation: Continue with supportive therapy for now. The increased pulse pressure is secondary to the aortic regurgitation. At this time, we will target a systolic blood pressure of 100 and not the map. If her urine output stays good a systolic pressure of 95 200 is optimal. Status: Acute (5) Status post mitral valve replacement: The patient is anticoagulated. Current INR is 8. Status: Acute (6) Emphysema lung: We will continue with the nebulized treatment. Status: Acute (7) Acute pyelonephritis: The patient is on Zosyn. Status: Acute Additional A&P Information I have switched her Pepcid to pantoprazole. The patient has multiple risk factors for GI bleed with intubation, supratherapeutic INR and will benefit from pantoprazole. Targeted blood sugar less than 180 mg/dL. Attestations Medical Necessity Statement*: Will defer to the primary team Coding Level of Care Code Acute [employer] [facility] [place] [facility] Diagnoses Cardiac arrest I46.9 Multiorgan failure Cardiogenic shock R57.0 Aortic regurgitation I35.1 Status post mitral valve replacement Z95.2 Emphysema lung J43.9 Acute pyelonephritis N10
[2020-10-15 16:54] LABS: Glucose Point of Care 164 mg/dL (70-110)
[2020-10-15 17:05] LABS: Anion Gap 15.2 (5-19); Blood Urea Nitrogen 41 mg/dL (8-23); Calcium 8.9 mg/dL (8.5-10.5); Carbon Dioxide 30 mmol/L (22-29); Chloride 101 mmol/L (98-107); Glomerular Filtration Rate 26.4 mL/min (90-130); Glucose 148 mg/dL (65-115); Magnesium 2.1 mg/dL (1.7-2.3); Osmolality Calculated 309 mOsm/kg (285-295); Potassium 3.2 mmol/L (3.5-5.1); Sodium 143 mmol/L (136-145)
[2020-10-15] MEDS: EPINEPHrine 2.5 MG in sodium chloride 0.9% 250 ML 6.1 MG IV (17:55)
[2020-10-15 18:23] LABS: CARDIOLIPIN AB (IGA) <11 APL; CARDIOLIPIN AB (IGG) <14 GPL; CARDIOLIPIN AB (IGM) <12 MPL
[2020-10-15 18:37] LABS: Glucose Point of Care 178 mg/dL (70-110)
[2020-10-15 18:37] LABS: Glucose Point of Care 134 mg/dL (70-110)
--- NOTE | 2020-10-15 18:44 | PC.NURSE ---
Patient POST code, rewarmed at 0200 and now weaning sedation. Patient is off Fentanyl and Precidex but still not waking up a lot, Patient did not have a cough previous assessments and has one now,but still does not withdrawl to pain. Patient is on 1mg of Epi and is not able to be weaned off at this time. Dr Mcrae is fine with patients systolic being around 100 as long as urine output is good and patients cardiac index is good. Patients Son updated on patients neuro status. Will continue to hold sedation and monitor
--- NOTE | 2020-10-15 19:40 | PC.NURSE ---
patient pulling low volume on vent aroung 0.045, RT contacted and came to room, patient pulling adequate volume at .600's at this time, no response to verbal or pain at this time which was reported in on coming report
--- NOTE | 2020-10-15 20:47 | PC.NURSE ---
Significant tremors to BLE noted, Dr. Simons contacted and also notified that patient is currently on Cpap mode on the vent and this nurse's concern for adding sedation at this time since all sedation has bee off since [address] Simons gave t.o. for Versed push, RT notified since patient is on Cpap mode, RT notified this nurse that the backup ventilation setting is on
[2020-10-15 21:05] LABS: ABG PCO2 48.7 mmHg (35-45); ABG PH Result 7.43 (7.35-7.45); HCO3 ABG 32.2 mmol/L (22-26); PO2 ABG 67.6 mmHg (80.0-100.0)
[2020-10-15 21:06] LABS: Arterial Blood Gas Hematocrit 28.2 % (37-47); Blood Gas Sample Site ARTLINE; Blood Gas Sample Type ARTERIAL; Oxygen Device VENT
--- NOTE | 2020-10-15 22:19 | PC.NURSE ---
RR 7 to 9 BPM on cpap mode, RT consulted with Dr. Mcrae who ordered vent set to CMV, Precedex restarted for mild sedation for vent compliance
--- NOTE | 2020-10-15 23:13 | PC.NURSE ---
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
[2020-10-15] MEDS: sodium chloride 0.9% 250 ML IV (23:45)
[2020-10-16] VITALS (59 sets, daily range): BP systolic 90–191; BP diastolic 50–103; PULSE 68–127; RESP 14–18; TEMP 36.3–36.9; O2SAT 89–99
[2020-10-16 00:01] LABS: Mean Platelet Volume 10.8 fL (7.4-10.4); White Blood Count 13.3 10^3/uL (4.0-10.0)
--- NOTE | 2020-10-16 00:01 | PC.NURSE ---
Dr. Simons at bedside, gave v.o. for BMP CBC and Mag draws and 250 ml bolus ofver one hour for HR
[2020-10-16 00:16] LABS: Blood Urea Nitrogen 39 mg/dL (8-23); Calcium 8.3 mg/dL (8.5-10.5); Carbon Dioxide 32 mmol/L (22-29); Chloride 102 mmol/L (98-107); Glomerular Filtration Rate 32.2 mL/min (90-130); Glucose 118 mg/dL (65-115); Osmolality Calculated 304 mOsm/kg (285-295); Sodium 142 mmol/L (136-145)
[2020-10-16 00:17] LABS: Hematocrit 28.8 % (37.0-47.0); Hemoglobin 9.3 g/dL (11.5-15.3); Mean Corpuscular HGB Conc 32.3 g/dL (30.0-36.0); Platelet Count 236 10^3/cmm (130-400); Red Cell Distribution Width 17.8 % (12.1-15.1)
[2020-10-16 00:18] LABS: Segmented Neutrophils 68 %; Total Cells Counted 100 (0-100)
[2020-10-16 00:19] LABS: Absolute Neutrophil 11.8 10^3/cmm (1.4-6.5); Anisocytosis 2+; Band Neutrophils Absolute 2.8 10^3/cmm (0.0-1.2); Blastocytes 0 % (0-0); Eosinophils 0 %; Lymphocytes 2 %; Lymphocytes Absolute 0.8 10^3/cmm (1.2-3.4); Macrocytosis 1+; Microcytosis 1+; Monocytes Absolute 0.4 10^3/cmm (0.1-0.6); Platelet Estimate Normal (Normal); Target Cells 1+
[2020-10-16 00:20] LABS: Burr Cells 1+; Pathology Refferal No; Schistocytes 1+
[2020-10-16] MEDS: ipratropium-albuterol 3 mL Neb INHALATION ×4 (02:19→21:22)
[2020-10-16 02:42] LABS: Beta 2 Glycoprotein IGA <9 SAU (<=20); Beta 2 Glycoprotein IGG <9 SGU (<=20); Beta 2 Glycoprotein IGM <9 SMU (<=20)
[2020-10-16] MEDS: dilTIAZem 30 mg Tablet OG-TUBE ×4 (03:11→20:16)
[2020-10-16 04:07] LABS: Basophils % 0.2 %; Hematocrit 27.2 % (37.0-47.0); Hemoglobin 8.8 g/dL (11.5-15.3); Lymphocytes # 0.2 10^3/uL (0.8-4.8); Lymphocytes % 1.7 %; Mean Corpuscular HGB Conc 32.4 g/dL (30.0-36.0); Mean Corpuscular Hemoglobin 31.1 pg (28.0-34.0); Mean Corpuscular Volume 96.1 fL (81-99); Mean Platelet Volume 11.3 fL (7.4-10.4); Monocytes # 0.7 10^3/uL (0.2-0.9); Monocytes % 5.5 %; Neutrophils # 11.74 10^3/uL (1.8-7.7); Neutrophils % 91.7 %; Nucleated Red Blood Cells # 0.4 /100WBC; Nucleated Red Blood Cells % 3.4 %; Platelet Count 215 10^3/cmm (130-400); Red Blood Count 2.83 10^6/uL (4.1-5.3); White Blood Count 12.8 10^3/uL (4.0-10.0)
[2020-10-16 04:19] LABS: Fibrinogen 619 mg/dL (174-498)
[2020-10-16 04:21] LABS: Partial Thromboplastin Time 72.6 SECONDS (23.9-36.7)
[2020-10-16 04:24] LABS: D Dimer 5.75 ug/mIFEU (0-0.59); Lactate (Lactic Acid level) 1.2 mmol/L (0.5-2.2)
[2020-10-16 04:25] LABS: Albumin Level 2.4 g/dL (3.5-5.2); Alkaline Phosphatase 154 IU/L (35-105); Anion Gap 11.8 (5-19); Aspartate Amino Transferase 204 U/L (0-32); Blood Urea Nitrogen 37 mg/dL (8-23); Calcium 8.3 mg/dL (8.5-10.5); Carbon Dioxide 31 mmol/L (22-29); Chloride 103 mmol/L (98-107); Globulin 3.3 g/dL (1.3-4.6); Glomerular Filtration Rate 32.2 mL/min (90-130); Glucose 146 mg/dL (65-115); Magnesium 1.8 mg/dL (1.7-2.3); Osmolality Calculated 307 mOsm/kg (285-295); Phosphorus 2.5 mg/dL (2.5-4.5); Sodium 143 mmol/L (136-145); Total Bilirubin 2.1 mg/dL (0.15-1.2); Total Protein 5.7 g/dL (6.6-8.7)
[2020-10-16 04:27] LABS: INR 7.93 (0.8-1.2)
[2020-10-16 04:30] LABS: NT Pro B Type Natriuretic Pept 4160 pg/mL (0-125); Procalcitonin 0.49 ng/mL (0-0.5)
[2020-10-16 04:33] LABS: Potassium 2.8 mmol/L (3.5-5.1)
[2020-10-16 04:34] LABS: Alanine Aminotransferase 1214 U/L (0-33)
[2020-10-16 04:41] LABS: Creatine Phosphokinase 71 U/L (26-192)
[2020-10-16 05:01] LABS: ABG PCO2 52.3 mmHg (35-45); ABG PH Result 7.44 (7.35-7.45); Arterial Blood Gas Hematocrit 52.6 % (37-47); Base Excess ABG 9.3 mmol/L (-2.0-2.0); Blood Gas Sample Type Arterial; Blood Gas Tidal Volume 0.45; HCO3 ABG 35.7 mmol/L (22-26); Oxygen Device VENT
[2020-10-16] MEDS: lidocaine 1% 5 ML in potassium chloride premix 100 ML 25 ML IV ×2 (05:18→09:09)
--- NOTE | 2020-10-16 06:00 | ECG_ITS ---
[facility] Test Date: 2020-10-16 Pat Name: Clementina Mcghee Department: Room: ICU11 Gender: Female [employer] Operator: : [id number] Requested By: aCn Nixon Order Number: [id number] Andrea MD: LINDA CAI Measurements Intervals [place] Rate: 87 P: 206 HI: 161 QRS: -20 QRSD: 174 T: 164 QT: 422 QTc: 508 Interpretive Statements SINUS RHYTHM LEFT BUNDLE BRANCH BLOCK [120+ ms QRS DURATION, 80+ ms Q/S IN V1/V2, 85+ ms R IN I/aVL/V5/V6] Compared to ECG 10/15/2020 05:47:30 First degree AV block no longer present Electronically Signed On 10-16-2020 20:20:48 CDT by LINDA CAI [id number]
[2020-10-16] MEDS: dexmedetomidine 400 MCG in sodium chloride 0.9% (100 ml) 100 ML 5.1 MCG IV (06:49)
--- NOTE | 2020-10-16 07:00 | XR_ITS ---
WS: [id number] Portable AP semiupright chest, 10/16/2020 Clinical Data: sob Comparison: Portable chest, 10/15/2020 Findings: The bilateral patchy opacities have not changed. The heart remains enlarged. An artificial heart valve is in position. The endotracheal tube and nasogastric tube remain in good position. There is a left subclavian stent unchanged. There is a dextroscoliosis. Monitor leads are on the chest wal l XR/XR chest 1V portable [id number] Impression: 1. No change in bilateral pulmonary opacities. 2. No change in endotracheal tube and nasogastric tube.
[2020-10-16] MEDS: piperacillin-tazobactam 3.375 GM in sodium chloride 0.9% (plus) 50 ML IV ×3 (07:39→22:50)
[2020-10-16 07:42] LABS: Glucose Point of Care 147 mg/dL (70-110)
--- NOTE | 2020-10-16 08:24 | PC.NUTR ---
NUTR TF RECOMMENDATIONS: Pulmocare with goal rate of 30 ml/hr providing 1080 kcal (83%), 45 g PRO (75%), and 565 ml fluid (44%)(%NEEDS). Suggest start TF at 10 ml/hr and increase by 10 ml Q6H as tolerated till goal rate is met. Suggest 100 ml H2O flushes Q4H to approach fluid needs or per physician.
[2020-10-16] MEDS: FUROsemide 10 mg/mL SDV 10mL 60 MG IVP (08:27)
--- NOTE | 2020-10-16 08:29 | PC.NURSE ---
Sedation Precedex has been turned off. Pt did have spontaneous eye opening one time but no reaction to sternal rub.
[2020-10-16] MEDS: pantoprazole 40 mg SDV IVP ×2 (09:06→22:17)
--- NOTE | 2020-10-16 10:46 | PC.SOCIAL ---
*IMM NOT GIVEN* Due to patient's current state, IMM update not given. Will continue to follow. Initialed, dated, timed and placed in chart.
--- NOTE | 2020-10-16 11:03 | PM.PN ---
Subjective Subjective: Interval history: Patient was examined by me multiple times in the afternoon yesterday, she was off sedation at that point, she did have a gag, did have a cough, did have pupillary reflex, but did not withdraw from pain, Babinski downward going bilaterally, did not awaken This morning patient was examined, overnight she remained normotensive, afebrile, has good urine output, continues to have a gag, cough and a pupillary reflex, she does awaken a bit this morning when I reposition her, she attempts to open her eyes, her Precedex is being weaned off, she does not withdraw from pain, Babinski is downward going bilaterally Vitals/I&O/Wt Last Vital Signs Temp 97.4 F L 10/16/20 06:00 Pulse 84 10/16/20 08:07 Resp 14 10/16/20 09:45 BP 141/67 10/16/20 08:00 Pulse Ox 95 10/16/20 09:45 10/15/20 10/16/20 10/16/20 22:59 06:59 14:59 Intake Total 31.608 / 225.485 354.728 / 580.213 103.083 / 103.083 Output Total 450 / 1650 1100 / 2750 Balance -418.392 / -1424.515 -745.272 / -2169.787 103.083 / 103.083 Weight last 48 hrs Weight 75.296 kg Weight 78.018 kg Physical Exam Const: COMMON NORMALS: no acute distress OTHER: Intubated, currently on Precedex for sedation HENMT: COMMON NORMALS: normocephalic HEAD & SCALP: normocephalic Eye: COMMON NORMALS: Equal, round and reactive pupils present PUPIL: Yes Equal, round and reactive pupils present Neck/C-Spine: COMMON NORMALS: no JVD Lymph: LYMPHATIC: no lymphadenopathy noted Chest: COMMONS NORMALS: normal inspection of the chest Resp: COMMON NORMALS: normal respiratory effort, No retractions and No use of accessory muscles AUSCULTATION: wheezes Cardio: COMMON NORMALS: no JVD, regular rate, regular rhythm, S1 normal heart sound present and S2 normal heart sound present RATE: regular rate RHYTHM: regular rhythm HEART SOUNDS: S1 normal heart sound present and S2 normal heart sound present GI: COMMON NORMALS: Normal to inspection, nondistended, normoactive bowel sounds present, Soft to palpation and non-tender PALPATION: Yes Soft to palpation OTHER: Surgical incision scar linear, looks clean and dry Extremity: COMMON NORMALS: capillary refill normal, no clubbing, cyanosis or edema and no pedal edema Neuro: OTHER: -Does have a cough, does have a gag reflex, does have pupillary reflexes, Babinski is downward going bilaterally, does open her eyes slightly when I reposition her Urinary Catheter Management^: Conn: Cath Placed During This Visit: yes Reason for Continuing Indwelling Catheter: Accurate Measurement of Urinary Output in Critically Ill Patients Urinary Catheter Date of Insertion: 10/11/20 Urinary Catheter Time of Insertion: 23:00 Data : 10/16/20 03:33 10/16/20 03:33 Micro: Microbiology 10/14/20 10:25 MRSA Culture - Final Nose A&P Assessment and plan (1) Hypoxic brain injury: -Pupils are equal round reactive to light, cough reflex present, gag reflex pleasant, did open her eyes when I repositioned her this morning -I cannot see any myoclonic jerks this morning -Was given 1 dose of 1000 mg of Keppra, which has been discontinued -CT head the head no acute findings Plan: -Today we will take patient off sedation, and do neurologic examination again -Daily weaning trials, assess neurologic status -We will perform EEG -I will hold off on prophylactic seizure medications -Unfortunately we do not have neurology coverage -If there is any evidence of cerebral edema, concerns for continuous seizures, hyperthermic episodes, we might need to transfer her for higher level care for neurology and continuous EEG monitoring Status: Acute (2) Septic shock: -Septic shock secondary to bilateral pyelonephritis, and bilateral pneumonia -Status post cardiac arrest, rosc episodes of V. tach -Acute respiratory failure with hypoxia -Acute heart failure, with atrial fibrillation -With multiorgan failure -Acute renal failure -Acute liver failure -Lactic acidosis, metabolic acidosis -NSTEMI -DIC Plan: -Admit to ICU -Currently intubated, mechanically ventilated on Precedex and fentanyl, paralytic vercuronium -Minimize PEEP, minimize FiO2, daily weaning trials -Tube feeds started today at 15 cc an hour, Jevity, free water flushes 50 cc every 4 hours -Chest x-ray this morning does show pulmonary vascular congestion, pulmonary edema -Urine output improved overnight with epinephrine drip, will give 1 dose of Lasix this morning 60 mg, urine output 2000, creatinine 1.8 -Continue epinephrine drip, maintain map greater than 75 -Status post 1 unit FFP -Off bicarb drip -Hydrocortisone 50 every 6 hours currently on hold -On p.o. Cardizem 30 every 6 hours for atrial fibrillation, anticoagulation currently contraindicated given INR of 8 -Continues to have evidence of DIC, INR 7.93, schistocytes, positive FDP -Antibiotic coverage on Zosyn -Currently off insulin drip, currently on subcu insulin monitor blood sugars every 2 hours -Cardiac echocardiogram ordered shows EF of 15 to 20%, severe global hypokinesis, -Femoral line in place, arterial line in place -Pulmonary on consult -Protonix for GI prophylaxis -Lovenox on hold given elevated INR -Status is stable, prognosis is guarded Status: Acute (3) Acute respiratory failure with hypoxia: Secondary to pneumonia, fluid overload, cardiogenic pulmonary edema History of underlying emphysema Status: Acute (4) Cardiac arrest: -History of ischemic cardiomyopathy EF of 20% -Cardiac arrest during intubation attempt -Cardiac arrest lasting 15 minutes, with CPR -Return of spontaneous regulation -Also developed V. tach Status: Acute (5) NSTEMI (non-ST elevated myocardial infarction): -Likely secondary to sepsis, cardiogenic shock -Trend troponins, serial EKGs -EF 15 to 20%, severe global hypokinesis Status: Acute (6) Acute pyelonephritis: Incidentally noted on CT. Interestingly urinalysis not particularly suggestive of pyelonephritis. Urine culture pending. Blood culture collected. Status: Acute (7) Multiorgan failure: Status: Acute (8) Thickening of wall of gallbladder: There is moderate transaminitis, AST: ALT ~2-1 pattern, although she does not drink alcohol, CK normal. Alk phos moderately elevated at 130. T bili normal. Mild right upper quadrant tenderness, however, more tender in epigastrium, and possibly some radiation. On CT some thickening noted in the gallbladder. No significant surrounding inflammation. Zosyn as above. Follow blood cultures. Liver ultrasound liver ultrasound shows hepatomegaly with diffuse fatty infiltration, shows hepatomegaly, no CBD dilatation. Status: Acute (9) Transaminitis: Secondary to shock Status: Acute (10) Tongue lesion: Round ecchymotic appearance of lesion on anterolateral right side of the tongue. Neither she and her son remember when this is appeared. This may be trauma secondary to bite due to supratherapeutic INR. She denies any pain or recollection of injuring her tongue. Discussed possibility with her and her son regarding embolic disease. They are agreeable at this time to continue anticoagulation, will try to gently taper off warfarin. Hold today, once INR coming down to therapeutic consider either transition to heparin if there is any concern regarding septic embolic disease, or continuing warfarin. Continue monitoring INR. Anticipate changing warfarin requirement while amiodarone is being held. CT head obtained, does not appear to have any hemorrhages or punctate lesions, although noncontrast study. Exam grossly nonfocal, however. Bilateral pyelonephritis findings as above. 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 CRP is elevated, despite being on steroids, higher than ever previously. Continue anticoagulation, hydroxychloroquine. Steroid. Statin on hold for now, but would resume in case liver parameters improving. Add lupus anticoagulant, anticardiolipin antibody, beta-2 glycoprotein antibody. We will discuss with her director long term care when patient is clinically stable Status: Acute (12) Cyanosis: Possible Raynaud's as above. Not hypotensive. Status: Acute (13) Elevated brain natriuretic peptide (BNP) level: Secondary to valvular heart disease. With pulmonary fibrosis and pulmonary hypertension Status: Acute (14) Pulmonary fibrosis: Status: Acute (15) Steroid-induced gastritis: Famotidine IV. Zofran as needed for nausea. Monitor QT. Once vomiting subsides consider sucralfate. Status: Acute (16) Supratherapeutic international normalized ratio (INR): Hold warfarin for now. Reassess INR in the morning, adjust accordingly or consider transition to heparin or holding entirely in and results came back concerning for septic emboli. Status: Acute (17) Hx of mitral valve repair: Status: Acute (18) Lactic acidosis: Status: Acute (19) DIC (disseminated intravascular coagulation): Status: Acute (20) Pneumonia: Status: Acute Additional A&P Information Cardiomyopathy Rheumatoid arthritis Possible PMR Nonobstructive CAD PAD with left clavicular artery stenting HTN HLD Plan for today wean sedation, assess for neurologic status, monitor urine output, monitor hemodynamics, will give Lasix, attempt to wean epinephrine drip Attestations Medical Necessity Statement*: Patient requires hospitalization, for acute respiratory failure, multiorgan failure, acute renal failure, concerns for hypoxic brain injury, pneumonia, UTI, critical care time spent over 50 minutes Coding Level of Care Code Acute Reordering Clerk for [facility] Fwd Diagnoses Hypoxic brain injury G93.1 Septic shock A41.9; R65.21 Acute respiratory failure with hypoxia J96.01 Cardiac arrest I46.9 NSTEMI (non-ST elevated myocardial infarction) I21.4 Acute pyelonephritis N10 Multiorgan failure Thickening of wall of gallbladder K82.8 Transaminitis R74.01 Tongue lesion K14.8 Livedo reticularis R23.1 Cyanosis R23.0 Elevated brain natriuretic peptide (BNP) level R79.89 Pulmonary fibrosis J84.10 Steroid-induced gastritis K29.60; T38.0X5A Supratherapeutic international normalized ratio (INR) R79.1 Hx of mitral valve repair Z98.890 Lactic acidosis E87.2 DIC (disseminated intravascular coagulation) D65 Pneumonia J18.9
[2020-10-16 11:25] LABS: Glucose Point of Care 121 mg/dL (70-110)
--- NOTE | 2020-10-16 14:30 | P.PN_ITS ---
Subjective Subjective: Interval history: The patient was seen and examined. Her son and granddaughter who are at bedside during evaluation. Patient was taken off of all sedation this morning. When I had evaluated the patient she was preferring the right side of her body more than the left. Spontaneous eye opening but she does not track. Unable to communicate. Looking at the patient, she likely suffered from anoxic brain injury. I had put the patient on pressure support ventilation and she was actually able to get good tidal volume. Her cardiac output has been excellent with epinephrine. However for unclear reason the epinephrine dose was increased 2.5 mcg/kg/min with a cardiac index of 4.5. She was in sinus rhythm but went into atrial flutter/fibrillation again. She was given one-time dose of IV amiodarone with better control of the heart rate. INR is still 8. Currently she is on Precedex only. The patient is several liters volume negative. However she has persistent bilateral chest infiltrate on the chest x-ray. I am wondering whether this is secondary to the suspected amiodarone induced pulmonary toxicity. It would be very unusual for to her have pulmonary edema after a significant amount of diuresis. Medications: Reviewed: Yes Vitals/I&O/Wt Last Vital Signs Temp 97.4 F L 10/16/20 06:00 Pulse 85 10/16/20 12:30 Resp 17 10/16/20 14:00 BP 107/57 10/16/20 12:30 Pulse Ox 91 10/16/20 14:00 10/15/20 10/16/20 10/16/20 22:59 06:59 14:59 Intake Total 31.608 / 225.485 354.728 / 580.213 566.380 / 566.380 Output Total 450 / 1650 1100 / 2750 2200 / 2200 Balance -418.392 / -1424.515 -745.272 / -2169.787 -1633.620 / -1633.620 Weight last 48 hrs Weight 166 lb Weight 172 lb Physical Exam Narrative: EXAM NARRATIVE: General: The patient is intubated. Not on any sedation. Appears comfortable HEENT: Bilateral reactive people. Respiratory: Auscultation: Fine crackles at bilateral lung bases, no wheezing or rhonchi Cardiovascular: Regular rate and rhythm, S1-S2 present, soft heart sound, no peripheral edema, cyanotic discoloration of lower extremity digits which is better. The extremities are warm Abdomen: Soft, nondistended, positive bowel sounds Neuro: The patient is spontaneously moving right lower extremity than other e xtremities. Spontaneous eye opening but no purposeful movement or ability to follow any command Urinary Catheter Management^: Conn: Cath Placed During This Visit: yes Reason for Continuing Indwelling Catheter: Accurate Measurement of Urinary Output in Critically Ill Patients Urinary Catheter Date of Insertion: 10/11/20 Urinary Catheter Time of Insertion: 23:00 Data : 10/16/20 03:33 10/16/20 03:33 Micro: Microbiology 10/14/20 10:25 MRSA Culture - Final Nose Attestation for Other Data: I personally reviewed and interpreted the following: Other data: I have reviewed the patient's laboratory, microbiology radiologic data. Please see the HPI for detail A&P Assessment and plan (1) Cardiac arrest: The patient is status post cardiac arrest on October 12. She has undergone targeted temperature management. Based on the physical finding, I think the patient did suffer from anoxic brain injury. She is preferring movement of starting body parts and not moving all the extremities. In addition, although there is spontaneous eye opening it is unclear to me how much the patient is able to comprehend at this time. Status: Acute (2) Multiorgan failure: The patient is recovering from most of the organ dysfunction. However, she likely has significant anoxic brain injury. The patient continues to have bilateral pulmonary infiltrate on chest x-ray even after a significant amount of diuresis. I am wondering whether the patient has interstitial lung disease secondary to amiodarone therapy. The patient's overall outcome is going to be determined by her mental status. If the patient does show signs of neurologic recovery, I would likely treat the patient with 40 mg of IV Solu-Medrol daily and see if there is any improvement of this lung infiltrates. Status: Acute (3) Cardiogenic shock: The patient is currently on epinephrine drip. We need to titrate the epinephrine drip down to aim for a cardiac index between 2.5 to 3 L/min/m? Excessive dosing of the epinephrine will likely predispose the patient to development of atrial fibrillation again which had developed today. If necessary we may have to restart the amiodarone drip. Continue with gentle diuresis. Status: Acute (4) Aortic regurgitation: Continue with supportive therapy for now. The increased pulse pressure is secondary to the aortic regurgitation. At this time, we will target a systolic blood pressure of 100 and not the map. If her urine output stays good a systolic pressure of 95-100 is optimal. Status: Acute (5) Status post mitral valve replacement: The patient is anticoagulated. Current INR is 8. Status: Acute (6) Emphysema lung: We will continue with the nebulized treatment. Status: Acute (7) Acute pyelonephritis: The patient is on Zosyn. Status: Acute Additional A&P Information I have switched her Pepcid to pantoprazole. The patient has multiple risk factors for GI bleed with intubation, supratherapeutic INR and will benefit from pantoprazole. Targeted blood sugar less than 180 mg/dL. Attestations Medical Necessity Statement*: Will defer to the primary team Coding Level of Care Code Acute Service Center Technician for [place] [facility] Diagnoses Cardiac arrest I46.9 Multiorgan failure Cardiogenic shock R57.0 Aortic regurgitation I35.1 Status post mitral valve replacement Z95.2 Emphysema lung J43.9 Acute pyelonephritis N10
[2020-10-16 15:31] LABS: Anion Gap 9.6 (5-19); Blood Urea Nitrogen 31 mg/dL (8-23); Calcium 8.3 mg/dL (8.5-10.5); Carbon Dioxide 33 mmol/L (22-29); Chloride 102 mmol/L (98-107); Glomerular Filtration Rate 40.9 mL/min (90-130); Glucose 159 mg/dL (65-115); Magnesium 1.6 mg/dL (1.7-2.3); Osmolality Calculated 302 mOsm/kg (285-295); Phosphorus 1.9 mg/dL (2.5-4.5); Potassium 3.6 mmol/L (3.5-5.1); Sodium 141 mmol/L (136-145)
[2020-10-16] MEDS: lidocaine 1% INJ 20 mL 5 ML IV (16:29)
[2020-10-16] MEDS: potassium chloride premix 100 ML 50 MEQ IV (16:30)
[2020-10-16 16:31] LABS: Glucose Point of Care 136 mg/dL (70-110)
[2020-10-16] MEDS: dexmedetomidine 400 MCG in sodium chloride 0.9% (100 ml) 100 ML 11.9 MCG IV (18:07)
[2020-10-16] MEDS: potassium phosphate (mEq K) 20 MEQ in sodium chloride 0.9% (100 ml) 104.5454 ML 54.5 MEQ IV (18:27)
[2020-10-17] VITALS (86 sets, daily range): BP systolic 74–176; BP diastolic 42–119; PULSE 65–133; RESP 14–38; TEMP 37–38.4; O2SAT 90–100
[2020-10-17] MEDS: ipratropium-albuterol 3 mL Neb INHALATION ×4 (02:19→20:44)
[2020-10-17] MEDS: dexmedetomidine 400 MCG in sodium chloride 0.9% (100 ml) 100 ML 11.9 MCG IV (02:48)
[2020-10-17] MEDS: dilTIAZem 30 mg Tablet OG-TUBE (02:51)
[2020-10-17 05:08] LABS: ABG PCO2 44.1 mmHg (35-45); ABG PH Result 7.52 (7.35-7.45); Arterial Blood Gas Hematocrit 30.7 % (37-47); Base Excess ABG 11.6 mmol/L (-2.0-2.0); Blood Gas Sample Type Arterial; Blood Gas Tidal Volume 0.45; HCO3 ABG 35.7 mmol/L (22-26); Oxygen Device VENT; PO2 ABG 60.8 mmHg (80.0-100.0)
--- NOTE | 2020-10-17 05:20 | PC.NURSE ---
HR sustaining 130's bp 190/90, Dr. Simons contacted and gave t.o. for 10 mg Labetolol IVP one time now
[2020-10-17] MEDS: labetalol 5 mg/mL SDV 20mL 10 MG IVP (05:28)
[2020-10-17 05:45] LABS: Basophils % 0.4 %; Eosinophils % 0.1 %; Hematocrit 29.6 % (37.0-47.0); Hemoglobin 9.6 g/dL (11.5-15.3); Lymphocytes # 0.4 10^3/uL (0.8-4.8); Lymphocytes % 3.6 %; Mean Corpuscular HGB Conc 32.4 g/dL (30.0-36.0); Mean Corpuscular Hemoglobin 30.9 pg (28.0-34.0); Mean Corpuscular Volume 95.2 fL (81-99); Mean Platelet Volume 11.9 fL (7.4-10.4); Monocytes # 0.9 10^3/uL (0.2-0.9); Monocytes % 8.7 %; Neutrophils # 8.81 10^3/uL (1.8-7.7); Neutrophils % 85.6 %; Nucleated Red Blood Cells # 0.5 /100WBC; Nucleated Red Blood Cells % 5.2 %; Platelet Count 222 10^3/cmm (130-400); Red Blood Count 3.11 10^6/uL (4.1-5.3); Red Cell Distribution Width 17.9 % (12.1-15.1); White Blood Count 10.3 10^3/uL (4.0-10.0)
--- NOTE | 2020-10-17 06:00 | ECG_ITS ---
[facility] Test Date: 2020-10-17 Pat Name: Clementina Mcghee Department: Room: ICU11 Gender: Female Boardmarker: : 1955 Requested By: Can Nixon Order Number: [id number] [id number] MD: Con Hdez M.D. Measurements Intervals [place] Rate: 116 P: [place]: QRS: -1 QRSD: 167 T: 97 QT: 350 QTc: 486 Interpretive Statements Sinus tachycardia LEFT BUNDLE BRANCH BLOCK [120+ ms QRS DURATION, 80+ ms Q/S IN V1/V2, 85+ ms R IN I/aVL/V5/V6] Compared to ECG 10/16/2020 05:49:17 Sinus rhythm no longer present Electronically Signed On 10-18-2020 15:38:14 CDT by Con Hdez M.D. [email or web address] medical [email or web address], [id number]
[2020-10-17 06:04] LABS: Lactate (Lactic Acid level) 1.5 mmol/L (0.5-2.2)
[2020-10-17 06:18] LABS: NT Pro B Type Natriuretic Pept 4599 pg/mL (0-125); Procalcitonin 0.32 ng/mL (0-0.5)
[2020-10-17 06:30] LABS: Albumin Level 2.3 g/dL (3.5-5.2); Alkaline Phosphatase 149 IU/L (35-105); Anion Gap 15.2 (5-19); Aspartate Amino Transferase 101 U/L (0-32); Blood Urea Nitrogen 31 mg/dL (8-23); C Reactive Protein 186.9 mg/L (0.0-4.9); Calcium 8.5 mg/dL (8.5-10.5); Carbon Dioxide 28 mmol/L (22-29); Chloride 102 mmol/L (98-107); Creatine Phosphokinase 166 U/L (26-192); Globulin 3.5 g/dL (1.3-4.6); Glomerular Filtration Rate 40.9 mL/min (90-130); Glucose 132 mg/dL (65-115); Magnesium 1.8 mg/dL (1.7-2.3); Osmolality Calculated 300 mOsm/kg (285-295); Potassium 4.2 mmol/L (3.5-5.1); Sodium 141 mmol/L (136-145); Total Protein 5.8 g/dL (6.6-8.7)
[2020-10-17 06:42] LABS: Alanine Aminotransferase 867 U/L (0-33)
[2020-10-17] MEDS: piperacillin-tazobactam 3.375 GM in sodium chloride 0.9% (plus) 50 ML IV ×3 (08:00→23:23)
[2020-10-17 08:12] LABS: Phosphorus 3.4 mg/dL (2.5-4.5)
[2020-10-17 08:21] LABS: Fibrinogen 707 mg/dL (174-498)
[2020-10-17 08:24] LABS: D Dimer 3.03 ug/mIFEU (0-0.59)
[2020-10-17 08:28] LABS: Partial Thromboplastin Time 69.3 SECONDS (23.9-36.7)
[2020-10-17 08:29] LABS: Glucose Point of Care 146 mg/dL (70-110)
[2020-10-17] MEDS: dilTIAZem 30 mg Tablet 60 MG OG-TUBE (08:32)
[2020-10-17 08:50] LABS: INR 5.16 (0.8-1.2)
[2020-10-17] MEDS: pantoprazole 40 mg SDV IVP ×2 (10:07→22:13)
[2020-10-17] MEDS: EPINEPHrine 2.5 MG in sodium chloride 0.9% 250 ML 4.8 MG IV (10:21)
--- NOTE | 2020-10-17 12:43 | P.PN_ITS ---
Subjective Subjective: Interval history: Patient was examined multiple times today, and early in the afternoon, when she was off sedation Pupils are equal round reactive to light, she does have a cough, has a gag reflex, her gaze is fixed upwards, does not track, she does not respond to sternal rub, does not respond to her name, has no meaningful responses, does not withdraw from pain, she does have spontaneous jerking of bilateral upper and lower extremities, Babinski's downward going bilaterally; Dr. Mcrae did have a discussion with patient's son, about her concerns for hypoxic brain injury This morning patient was taken off the epinephrine drip, she does have intermittent episodes of A. fib, T-max 101.1, remains normotensive, good urine output, she did not pass her spontaneous breathing trial, Vitals/I&O/Wt Last Vital Signs Temp 101.1 F H 10/17/20 07:30 Pulse 104 H 10/17/20 11:00 Resp 33 H 10/17/20 12:27 BP 154/78 10/17/20 11:00 Pulse Ox 96 10/17/20 12:27 10/16/20 10/17/20 10/17/20 22:59 06:59 14:59 Intake Total 642.362 / 1214.542 167.952 / 1382.494 167.397 / 167.397 Output Total 400 / 2600 900 / 3500 50 / 50 Balance 242.362 / -1385.458 -732.048 / -2117.506 117.397 / 117.397 Weight last 48 hrs Weight 78.925 kg Weight 75.296 kg Physical Exam Narrative: EXAM NARRATIVE: Intubated, sedated on the ventilator Const: COMMON NORMALS: no acute distress OTHER: Intubated, currently on Precedex for sedation HENMT: COMMON NORMALS: normocephalic HEAD & SCALP: normocephalic Eye: COMMON NORMALS: Equal, round and reactive pupils present PUPIL: Yes Equal, round and reactive pupils present OTHER: Pupils equal round reactive to light Neck/C-Spine: COMMON NORMALS: no lymphadenopathy and no JVD Lymph: LYMPHATIC: no lymphadenopathy noted Chest: COMMONS NORMALS: normal inspection of the chest Resp: COMMON NORMALS: normal respiratory effort, No retractions, No use of accessory muscles and clear to auscultation bilaterally AUSCULTATION: clear to auscultation bilaterally, rhonchi and wheezes Cardio: COMMON NORMALS: no JVD, S1 normal heart sound present and S2 normal heart sound present RATE: tachycardic RHYTHM: abnormal rhythm HEART SOUNDS: S1 normal heart sound present, S2 normal heart sound present and no murmurs GI: COMMON NORMALS: Normal to inspection, nondistended, normoactive bowel sounds present, Soft to palpation, non-tender, No hepatosplenomegaly present, no masses and no bruits PALPATION: Yes Soft to palpation and Yes No hepatosplenomegaly present OTHER: Surgical incision scar linear, looks clean and dry Neuro: OTHER: -Does have a cough, does have a gag reflex, does have pupillary reflexes, Babinski is downward going bilaterally, fixed upward gaze, does not track, no meaningful responses, does not withdraw from pain Urinary Catheter Management^: Conn: Cath Placed During This Visit: yes Reason for Continuing Indwelling Catheter: Accurate Measurement of Urinary Output in Critically Ill Patients Urinary Catheter Date of Insertion: 10/11/20 Urinary Catheter Time of Insertion: 23:00 Data : 10/17/20 05:05 10/17/20 05:05 Micro: Microbiology 10/11/20 20:16 Blood Culture - Final Blood NO GROWTH AFTER 5 DAYS 10/11/20 20:20 Blood Culture - Final Blood NO GROWTH AFTER 5 DAYS A&P Assessment and plan (1) Hypoxic brain injury: -Pupils are equal round reactive to light, cough reflex present, gag reflex pleasant, fixed upward gaze, does not track, does not withdraw from pain, no response to sternal rub, no meaningful responses, does have spontaneous movements of upper and lower extremities -CT head the head no acute findings -Findings concerning for significant hypoxic brain injury Plan: -Daily weaning trials, assess neurologic status -We will try to perform an MRI -We will perform EEG -We will have neurology see patient for evaluation for hypoxic brain injury hopefully on Monday -Monitor for fevers, monitor for cerebral edema -Patient son was aware of our concerns for significant hypoxic brain injury, he would like for us to continue intervention and give her some time Status: Acute (2) Septic shock: -Septic shock secondary to bilateral pyelonephritis, and bilateral pneumonia -Status post cardiac arrest, rosc episodes of V. tach -Acute respiratory failure with hypoxia -Acute heart failure, with atrial fibrillation -With multiorgan failure -Acute renal failure, resolving -Acute liver failure, resolving -Lactic acidosis, metabolic acidosis, resolved -NSTEMI -DIC, resolving Plan: -Admit to ICU -Currently intubated, mechanically ventilated on Precedex -Continue daily spontaneous breathing trials -Minimize PEEP, minimize FiO2, daily weaning trials -Tube feeds started today at 15 cc an hour, Jevity, free water flushes 50 cc every 4 hours -Chest x-ray this morning does show pulmonary vascular congestion, seems more like pulmonary fibrotic changes, as patient is -2 L, hold off on Lasix -Urine output improved, 1350 -Wean off Levophed drip, maintain map greater than 75 -Status post 1 unit FFP -Off bicarb drip -Hydrocortisone 50 every 6 hours stopped -On p.o. through OG Cardizem 90 every 6 hours for atrial fibrillation, anticoagulation currently contraindicated given INR of 5 -Continues to have evidence of DIC, INR 5, schistocytes, positive FDP -Antibiotic coverage on Zosyn -Currently off insulin drip, currently on subcu insulin monitor blood sugars every 2 hours -Cardiac echocardiogram ordered shows EF of 15 to 20%, severe global hypokinesis, -Femoral line in place, arterial line in place -Pulmonary on consult -Protonix for GI prophylaxis -Lovenox on hold given elevated INR -Status is stable, prognosis is poor Status: Acute (3) Acute respiratory failure with hypoxia: Secondary to pneumonia, fluid overload, cardiogenic pulmonary edema History of underlying emphysema Status: Acute (4) Cardiac arrest: -History of ischemic cardiomyopathy EF of 20% -Cardiac arrest during intubation attempt -Cardiac arrest lasting 15 minutes, with CPR -Return of spontaneous regulation -Also developed V. tach Status: Acute (5) NSTEMI (non-ST elevated myocardial infarction): -Likely secondary to sepsis, cardiogenic shock -Trend troponins, serial EKGs -EF 15 to 20%, severe global hypokinesis Status: Acute (6) Acute pyelonephritis: Incidentally noted on CT. Interestingly urinalysis not particularly suggestive of pyelonephritis. Urine culture pending. Blood culture collected. Status: Acute (7) Multiorgan failure: Status: Acute (8) Thickening of wall of gallbladder: There is moderate transaminitis, AST: ALT ~2-1 pattern, although she does not drink alcohol, CK normal. Alk phos moderately elevated at 130. T bili normal. Mild right upper quadrant tenderness, however, more tender in epigastrium, and possibly some radiation. On CT some thickening noted in the gallbladder. No significant surrounding inflammation. Zosyn as above. Follow blood cultures. Liver ultrasound liver ultrasound shows hepatomegaly with diffuse fatty infiltration, shows hepatomegaly, no CBD dilatation. Status: Acute (9) Transaminitis: Secondary to shock Status: Acute (10) Tongue lesion: Round ecchymotic appearance of lesion on anterolateral right side of the tongue. Neither she and her son remember when this is appeared. This may be trauma secondary to bite due to supratherapeutic INR. She denies any pain or recollection of injuring her tongue. Discussed possibility with her and her son regarding embolic disease. They are agreeable at this time to continue anticoagulation, will try to gently taper off warfarin. Hold today, once INR coming down to therapeutic consider either transition to heparin if there is any concern regarding septic embolic disease, or continuing warfarin. Continue monitoring INR. Anticipate changing warfarin requirement while amiodarone is being held. CT head obtained, does not appear to have any hemorrhages or punctate lesions, although noncontrast study. Exam grossly nonfocal, however. Bilateral pyelonephritis findings as above. 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 CRP is elevated, despite being on steroids, higher than ever previously. Continue anticoagulation, hydroxychloroquine. Steroid. Statin on hold for now, but would resume in case liver parameters improving. Add lupus anticoagulant, anticardiolipin antibody, beta-2 glycoprotein antibody. 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 Not hypotensive. Status: Acute (13) Elevated brain natriuretic peptide (BNP) level: Secondary to valvular heart disease. With pulmonary fibrosis and pulmonary hypertension Status: Acute (14) Pulmonary fibrosis: Status: Acute (15) Steroid-induced gastritis: Famotidine IV. Zofran as needed for nausea. Monitor QT. Once vomiting subsides consider sucralfate. Status: Acute (16) Supratherapeutic international normalized ratio (INR): Hold warfarin for now. Reassess INR in the morning, adjust accordingly or consider transition to heparin or holding entirely in and results came back concerning for septic emboli. Status: Acute (17) Hx of mitral valve repair: Status: Acute (18) Lactic acidosis: Status: Acute (19) DIC (disseminated intravascular coagulation): Status: Acute (20) Pneumonia: Status: Acute Additional A&P Information Cardiomyopathy Rheumatoid arthritis Possible PMR Nonobstructive CAD PAD with left clavicular artery stenting HTN HLD Plan for today assess for neurologic status, placed back on sedation, monitor urine output, monitor heart rates, EEG, MRI ordered, will try spontaneous breathing trial Attestations Medical Necessity Statement*: Patient requires hospitalization for acute respiratory failure, cardiac arrest, septic shock, multiorgan failure, concerns for hypoxic brain injury, critical care time spent over 60 minutes Coding Level of Care Code Acute [employer] Exam Comprehensive Diagnoses Hypoxic brain injury G93.1 Septic shock A41.9; R65.21 Acute respiratory failure with hypoxia J96.01 Cardiac arrest I46.9 NSTEMI (non-ST elevated myocardial infarction) I21.4 Acute pyelonephritis N10 Multiorgan failure Thickening of wall of gallbladder K82.8 Transaminitis R74.01 Tongue lesion K14.8 Livedo reticularis R23.1 Cyanosis R23.0 Elevated brain natriuretic peptide (BNP) level R79.89 Pulmonary fibrosis J84.10 Steroid-induced gastritis K29.60; T38.0X5A Supratherapeutic international normalized ratio (INR) R79.1 Hx of mitral valve repair Z98.890 Lactic acidosis E87.2 DIC (disseminated intravascular coagulation) D65 Pneumonia J18.9
[2020-10-17 13:11] LABS: Glucose Point of Care 122 mg/dL (70-110)
[2020-10-17] MEDS: dilTIAZem 30 mg Tablet 90 MG OG-TUBE ×2 (14:13→19:52)
--- NOTE | 2020-10-17 14:13 | PC.NURSE ---
witness wasting asiya.
--- NOTE | 2020-10-17 15:47 | XRR_ITS ---
PROCEDURE INFORMATION: Exam: XR Chest Exam date and time: 10/17/2020 3:48 PM Age: 65 years old Clinical indication: Device placement; Ng tube TECHNIQUE: Imaging protocol: XR of the chest. Views: 1 view. COMPARISON: CR XR chest 1V portable [id number] 10/16/2020 5:15 AM FINDINGS: Tubes, catheters and devices: Life support devices are unremarkable positioning. The NG tube projects over the stomach. Lungs: Alveolar airspace opacities bilaterally similar to prior. Diffuse coarsening thickening of pulmonary interstitium. Hyperinflation of lungs. Background emphysema. Pleural spaces: Unremarkable. No pleural effusion. No pneumothorax. Heart/Mediastinum: Endovascular stent in the proximal left subclavian artery. Mild cardiac enlargement. Bones/joints: Demineralized bones. Other findings: Prior valvuloplasty. XR/XR chest 1V portable [id number] IMPRESSION: 1. No significant changes in evaluation of the chest. 2. Satisfactory position endotracheal tube and NG tube.
[2020-10-17] MEDS: FUROsemide 10 mg/mL SDV 4mL 40 MG IVP (18:35)
[2020-10-17 18:37] LABS: Glucose Point of Care 107 mg/dL (70-110)
--- NOTE | 2020-10-17 18:45 | PC.NURSE ---
Patients sedation has been turned off since 10am and she is wide awake with her movements and eyes are open but does not engage in any conversation and follows no commands, appears to have an anoxic brain injury but waiting to do a MRI or EEG on monday to confirm for son. Patients heart rate has been increasing along with her spiking temps and having more ronchi lung sounds so called Dr Nixon and received orders at 1800 for a dose of Lasix and amiodorone BID. Family aware of patients condition, but still hopeful.
[2020-10-17] MEDS: amiodarone 200 mg Tablet 400 MG PO (19:14)
[2020-10-17] MEDS: dexmedetomidine 400 MCG in sodium chloride 0.9% (100 ml) 100 ML 10.2 MCG IV (22:04)
[2020-10-18] VITALS (45 sets, daily range): BP systolic 108–164; BP diastolic 50–105; PULSE 74–111; RESP 12–41; TEMP 36.7–37.8; O2SAT 90–100; BMI 25.9
[2020-10-18 00:19] LABS: Glucose Point of Care 122 mg/dL (70-110)
--- NOTE | 2020-10-18 02:18 | PC.NURSE ---
Pt's heart rate down to [address] Simons notified and 0200 dose of diltiazem held. Also notified Dr. Simons that pt has begun following some commands.
[2020-10-18] MEDS: ipratropium-albuterol 3 mL Neb INHALATION ×4 (02:58→22:00)
[2020-10-18 05:15] LABS: ABG PCO2 45.6 mmHg (35-45); ABG PH Result 7.52 (7.35-7.45); Arterial Blood Gas Hematocrit 30.8 % (37-47); Base Excess ABG 12.8 mmol/L (-2.0-2.0); Blood Gas Sample Type Arterial; Blood Gas Tidal Volume 0.45; Oxygen Device VENT; PO2 ABG 77.6 mmHg (80.0-100.0)
[2020-10-18 05:30] LABS: Basophils # 0.1 10^3/uL (0.0-0.1); Basophils % 0.5 %; Eosinophils % 0.4 %; Hematocrit 29.8 % (37.0-47.0); Hemoglobin 9.4 g/dL (11.5-15.3); Lymphocytes # 0.1 10^3/uL (0.8-4.8); Lymphocytes % 0.6 %; Mean Corpuscular HGB Conc 31.5 g/dL (30.0-36.0); Mean Corpuscular Volume 95.2 fL (81-99); Mean Platelet Volume 11.9 fL (7.4-10.4); Monocytes # 0.7 10^3/uL (0.2-0.9); Monocytes % 6.2 %; Neutrophils # 9.98 10^3/uL (1.8-7.7); Neutrophils % 87.8 %; Nucleated Red Blood Cells # 0.7 /100WBC; Platelet Count 212 10^3/cmm (130-400); Red Blood Count 3.13 10^6/uL (4.1-5.3); Red Cell Distribution Width 17.9 % (12.1-15.1); White Blood Count 11.4 10^3/uL (4.0-10.0)
[2020-10-18] MEDS: fentaNYL 50 mcg/mL INJ 2mL 25 MCG IVP (05:31)
[2020-10-18 05:52] LABS: Lactate (Lactic Acid level) 1.1 mmol/L (0.5-2.2)
[2020-10-18 06:02] LABS: Procalcitonin 0.28 ng/mL (0-0.5)
[2020-10-18 06:13] LABS: Alanine Aminotransferase 573 U/L (0-33); Albumin Level 2.5 g/dL (3.5-5.2); Alkaline Phosphatase 169 IU/L (35-105); Anion Gap 14.7 (5-19); Aspartate Amino Transferase 76 U/L (0-32); Blood Urea Nitrogen 25 mg/dL (8-23); C Reactive Protein 175.6 mg/L (0.0-4.9); Calcium 8.3 mg/dL (8.5-10.5); Carbon Dioxide 31 mmol/L (22-29); Chloride 100 mmol/L (98-107); Globulin 3.7 g/dL (1.3-4.6); Glomerular Filtration Rate 62.5 mL/min (90-130); Glucose 135 mg/dL (65-115); Magnesium 1.5 mg/dL (1.7-2.3); Osmolality Calculated 302 mOsm/kg (285-295); Phosphorus 2.6 mg/dL (2.5-4.5); Sodium 143 mmol/L (136-145); Total Bilirubin 2.1 mg/dL (0.15-1.2); Total Protein 6.2 g/dL (6.6-8.7)
[2020-10-18 06:19] LABS: Potassium 2.7 mmol/L (3.5-5.1)
[2020-10-18] MEDS: piperacillin-tazobactam 3.375 GM in sodium chloride 0.9% (plus) 50 ML IV ×3 (07:12→23:33)
--- NOTE | 2020-10-18 07:48 | USR_ITS ---
PROCEDURE INFORMATION: Exam: US Duplex Lower Extremity Veins, Bilateral Exam date and time: 10/18/2020 7:50 AM Age: 65 years old Clinical indication: Abnormal findings; Abnormal lab test; Elevated d-dimer; Additional info: R/O dvt TECHNIQUE: Imaging protocol: Real-time duplex ultrasound of the extremities with 2-D collins scale, color Doppler flow and spectral waveform analysis with image documentation. Complete exam focused on the bilateral lower extremity veins. COMPARISON: No relevant prior studies available. FINDINGS: Right deep veins: Unremarkable. The common femoral, femoral, proximal profunda femoral and popliteal veins are patent without thrombus. Normal Doppler waveforms. Normal compressibility and/or augmentation response. Right superficial veins: Saphenofemoral junction is patent without thrombus. Left deep veins: Unremarkable. The common femoral, femoral, proximal profunda femoral and popliteal veins are patent without thrombus. Normal Doppler waveforms. Normal compressibility and/or augmentation response. Left superficial veins: Saphenofemoral junction is patent without thrombus. Soft tissues: Unremarkable. US/CV venous duplex [facility] [id number] IMPRESSION: No evidence of deep vein thrombosis.
--- NOTE | 2020-10-18 07:49 | XRR_ITS ---
PROCEDURE INFORMATION: Exam: XR Chest Exam date and time: 10/18/2020 7:50 AM Age: 65 years old Clinical indication: Shortness of breath; Additional info: SOB TECHNIQUE: Imaging protocol: XR of the chest. Views: 1 view. COMPARISON: CR (CHEST, ) 10/17/2020 4:06 PM FINDINGS: Tubes, catheters and devices: Endotracheal tube is present about 1.7 cm above the rafaela. A nasogastric tube courses down to the stomach. Lungs: There are diffuse bilateral pulmonary infiltrates which are stable. Pleural spaces: There is blunting of the costophrenic angles consistent with small effusions.. Heart/Mediastinum: The patient has undergone mitral valve replacement. The cardiac silhouette is enlarged but unchanged. Bones/joints: Unremarkable. XR/XR chest 1V portable [id number] IMPRESSION: 1. The tip of the endotracheal tube is about 1.7 cm above the rafaela. 2. Stable diffuse bilateral pulmonary infiltrates and small effusions.
[2020-10-18 08:03] LABS: Fibrinogen 667 mg/dL (174-498); Partial Thromboplastin Time 46.8 SECONDS (23.9-36.7)
[2020-10-18 08:04] LABS: Glucose Point of Care 125 mg/dL (70-110)
[2020-10-18 08:06] LABS: D Dimer 2.08 ug/mIFEU (0-0.59)
[2020-10-18] MEDS: dexmedetomidine 400 MCG in sodium chloride 0.9% (100 ml) 100 ML 11.9 MCG IV (08:14)
[2020-10-18] MEDS: lidocaine 1% 5 ML in potassium chloride premix 100 ML 25 ML IV ×2 (08:23→12:22)
[2020-10-18] MEDS: vancomycin 1,000 MG in sodium chloride 0.9% 250 ML 250 MG IV (08:23)
[2020-10-18] MEDS: magnesium sulfate premix 2 GM/50 ML PIGGYBACK IV (08:24)
[2020-10-18] MEDS: amiodarone 200 mg Tablet 400 MG PO ×2 (08:24→17:26)
[2020-10-18 09:36] LABS: Total Bilirubin 2.3 mg/dL (0.15-1.2)
[2020-10-18] MEDS: dilTIAZem 30 mg Tablet 90 MG OG-TUBE ×3 (10:23→20:41)
[2020-10-18] MEDS: pantoprazole 40 mg SDV IVP ×2 (10:24→22:21)
[2020-10-18] MEDS: morphine 4 mg/mL SDV 1 mL 2 MG IVP (11:00)
[2020-10-18] MEDS: FUROsemide 10 mg/mL SDV 2mL 20 MG IVP (11:39)
--- NOTE | 2020-10-18 12:37 | P.PN_ITS ---
Subjective Subjective: Interval history: Overnight patient started to follow commands, she was put back on sedation as she became tachypneic overnight, this morning, she is on 0.7 of Precedex, she follows all commands, squeezes my finger, wiggles her toes, she squeezes my finger to verbalize understanding to my questioning, pupils equal round reactive to light, withdrawing from pain, patient currently is on MMV, normotensive, off pressors, heart rates are well controlled, afebrile overnight, good urine output for the last 24 hours, will plan on extubation with Precedex this morning Vitals/I&O/Wt Last Vital Signs Temp 98.1 F 10/18/20 08:00 Pulse 97 10/18/20 12:00 Resp 12 10/18/20 10:36 BP 135/65 10/18/20 12:00 Pulse Ox 95 10/18/20 12:00 10/17/20 10/18/20 10/18/20 22:59 06:59 14:59 Intake Total 108.078 / 459.475 444.613 / 904.088 553.970 / 553.970 Output Total 3050 / 3100 1600 / 4700 400 / 400 Balance -2941.922 / -2640.525 -1155.387 / -3795.912 153.970 / 153.970 Weight last 48 hrs Weight 68.492 kg Weight 68.492 kg Weight 78.925 kg Physical Exam Const: GENERAL APPEARANCE: cooperative ORIENTATION/CONSCIOUSNESS: Yes awake OTHER: Follow commands on Precedex, on the ventilator Resp: COMMON NORMALS: normal respiratory effort, No retractions, No use of accessory muscles and clear to auscultation bilaterally AUSCULTATION: clear to auscultation bilaterally Cardio: COMMON NORMALS: regular rate, S1 normal heart sound present and S2 normal heart sound present RATE: regular rate RHYTHM: abnormal rhythm HEART SOUNDS: S1 normal heart sound present and S2 normal heart sound present GI: COMMON NORMALS: Normal to inspection, nondistended, normoactive bowel sounds present, Soft to palpation and non-tender PALPATION: Yes Soft to palpation Extremity: COMMON NORMALS: capillary refill normal, no calf tenderness and no pedal edema Neuro: OTHER: Follows commands on the ventilator Urinary Catheter Management^: Conn: Cath Placed During This Visit: yes Reason for Continuing Indwelling Catheter: Accurate Measurement of Urinary Output in Critically Ill Patients Urinary Catheter Date of Insertion: 10/11/20 Urinary Catheter Time of Insertion: 23:00 Data : 10/18/20 05:10 10/18/20 05:10 Micro: Microbiology 10/18/20 08:39 Blood Culture - Preliminary Blood SPECIMEN COLLECTED 10/18/20 08:38 Blood Culture - Preliminary Blood SPECIMEN COLLECTED A&P Assessment and plan (1) Hypoxic brain injury: -Pupils are equal round reactive to light, cough reflex present, gag reflex pleasant, now following commands, withdrawing from pain -CT head the head no acute findings -There still is a possibility of hypoxic brain injury, will continue to monitor mentation closely Plan: -Daily weaning trials, assess neurologic status -We will try to perform an MRI based upon how she does with her extubation trial and after -We will perform EEG -Monitor for fevers, monitor for cerebral edema Status: Acute (2) Septic shock: -Septic shock secondary to bilateral pyelonephritis, and bilateral pneumonia -Status post cardiac arrest, rosc episodes of V. tach -Acute respiratory failure with hypoxia, doing well on the ventilator, planning on extubation -Acute heart failure, with atrial fibrillation, diuresing well, on Cardizem and amiodarone -With multiorgan failure, resolving -Acute renal failure, resolving -Acute liver failure, resolving -Lactic acidosis, metabolic acidosis, resolved -NSTEMI -DIC, resolving, INR 2.9 Plan: -Admit to ICU -Currently intubated, mechanically ventilated on Precedex, plan on extubating on minimal Precedex -Continue daily spontaneous breathing trials -Minimize PEEP, minimize FiO2, daily weaning trials -Tube feeds started today at 15 cc an hour, Jevity, free water flushes 50 cc every 4 hours, will stop in preparation for extubation -We will give 1 dose of Lasix 20 mg in preparation of extubation -Urine output improved, 5050 -Wean off Levophed drip, maintain map greater than 75 -Status post 1 unit FFP -Off bicarb drip -Hydrocortisone 50 every 6 hours stopped -On p.o. through OG Cardizem 90 every 6 hours for atrial fibrillation, amiod arone 400 twice daily anticoagulation currently contraindicated given INR of 2.9 -Continues to have evidence of DIC -Antibiotic coverage on Zosyn, vancomycin was added yesterday due to persistent fevers, repeat cultures -Currently off insulin drip, currently on subcu insulin monitor blood sugars tray ry 2 hours -Cardiac echocardiogram ordered shows EF of 15 to 20%, severe global hypokinesis -Femoral line in place, arterial line in place -Pulmonary on consult -I have consulted cardiology this morning, as we have to further evaluate patient's drop in ejection fraction, -Protonix for GI prophylaxis -Lovenox on hold given elevated INR, might resume tomorrow morning based on INR -Status is stable, prognosis is guarded Status: Acute (3) Acute respiratory failure with hypoxia: Secondary to pneumonia, fluid overload, cardiogenic pulmonary edema History of underlying emphysema Status: Acute (4) Cardiac arrest: -History of ischemic cardiomyopathy EF of 20% -Cardiac arrest during intubation attempt -Cardiac arrest lasting 15 minutes, with CPR -Return of spontaneous regulation -Also developed V. tach Status: Acute (5) NSTEMI (non-ST elevated myocardial infarction): -Likely secondary to sepsis, cardiogenic shock -Trend troponins, serial EKGs -EF 15 to 20%, severe global hypokinesis Status: Acute (6) Acute pyelonephritis: Incidentally noted on CT. Interestingly urinalysis not particularly suggestive of pyelonephritis. Urine culture pending. Blood culture collected. Status: Acute (7) Multiorgan failure: Status: Acute (8) Thickening of wall of gallbladder: There is moderate transaminitis, AST: ALT ~2-1 pattern, although she does not drink alcohol, CK normal. Alk phos moderately elevated at 130. T bili normal. Mild right upper quadrant tenderness, however, more tender in epigastrium, and possibly some radiation. On CT some thickening noted in the gallbladder. No significant surrounding inflammation. Zosyn as above. Follow blood cultures. Liver ultrasound liver ultrasound shows hepatomegaly with diffuse fatty infiltration, shows hepatomegaly, no CBD dilatation. Status: Acute (9) Transaminitis: Secondary to shock Status: Acute (10) Tongue lesion: Round ecchymotic appearance of lesion on anterolateral right side of the tongue. Neither she and her son remember when this is appeared. This may be trauma secondary to bite due to supratherapeutic INR. She denies any pain or recollection of injuring her tongue. Discussed possibility with her and her son regarding embolic disease. They are agreeable at this time to continue anticoagulation, will try to gently taper off warfarin. Hold today, once INR coming down to therapeutic consider either transition to heparin if there is any concern regarding septic embolic disease, or continuing warfarin. Continue monitoring INR. Anticipate changing warfarin requirement while amiodarone is being held. CT head obtained, does not appear to have any hemorrhages or punctate lesions, a [facility] noncontrast study. Exam grossly nonfocal, however. Bilateral pyelonephritis findings as above. 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 CRP is elevated, despite being on steroids, higher than ever previously. Continue anticoagulation, hydroxychloroquine. Steroid. Statin on hold for now, but would resume in case liver parameters improving. Add lupus anticoagulant, anticardiolipin antibody, beta-2 glycoprotein antibody. 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 Not hypotensive. Status: Acute (13) Elevated brain natriuretic peptide (BNP) level: Secondary to valvular heart disease. With pulmonary fibrosis and pulmonary hypertension Status: Acute (14) Pulmonary fibrosis: Status: Acute (15) Steroid-induced gastritis: Famotidine IV. Zofran as needed for nausea. Monitor QT. Once vomiting subsides consider sucralfate. Status: Acute (16) Supratherapeutic international normalized ratio (INR): Hold warfarin for now. Reassess INR in the morning, adjust accordingly or consider transition to heparin or holding entirely in and results came back concerning for septic emboli. Status: Acute (17) Hx of mitral valve repair: Status: Acute (18) Lactic acidosis: Status: Acute (19) DIC (disseminated intravascular coagulation): Status: Acute (20) Pneumonia: Status: Acute Additional A&P Information Cardiomyopathy Rheumatoid arthritis Possible PMR Nonobstructive CAD PAD with left clavicular artery stenting HTN HLD Plan for today continue spontaneous breathing trial, continue neurochecks, plan for extubation, cardiology consulted Attestations Medical Necessity Statement*: Patient requires hospitalization for septic shoc k, multiorgan failure, A. fib, acute heart failure, concerns for hypoxic brain injury Coding Level of Care Code Acute Quantitative Software Engineer for Chg Fwd Diagnoses Hypoxic brain injury G93.1 Septic shock A41.9; R65.21 Acute respiratory failure with hypoxia J96.01 Cardiac arrest I46.9 NSTEMI (non-ST elevated myocardial infarction) I21.4 Acute pyelonephritis N10 Multiorgan failure Thickening of wall of gallbladder K82.8 Transaminitis R74.01 Tongue lesion K14.8 Livedo reticularis R23.1 Cyanosis R23.0 Elevated brain natriuretic peptide (BNP) level R79.89 Pulmonary fibrosis J84.10 Steroid-induced gastritis K29.60; T38.0X5A Supratherapeutic international normalized ratio (INR) R79.1 Hx of mitral valve repair Z98.890 Lactic acidosis E87.2 DIC (disseminated intravascular coagulation) D65 Pneumonia J18.9
[2020-10-18 12:41] LABS: Glucose Point of Care 126 mg/dL (70-110)
[2020-10-18] MEDS: LORazepam 2 mg/mL INJ 1 mL 0.5 MG IVP (14:13)
--- NOTE | 2020-10-18 18:55 | PC.NURSE ---
Addendum entered by Sandi Yeung RN 10/18/20 19:00: Witnessed waste of Fentanyl gtt, amt wasted 45 mL Original Note: fentanyl gtt discontinued, remaining medication wasted by this nurse and Colleen Yeung RN. Amount of 45 ML wasted per protocol.
[2020-10-18] MEDS: dexmedetomidine 400 MCG in sodium chloride 0.9% (100 ml) 100 ML 5.1 MCG IV (22:22)
[2020-10-19] VITALS (41 sets, daily range): BP systolic 89–188; BP diastolic 46–101; PULSE 65–127; RESP 18–97; TEMP 36.7–37.8; O2SAT 25–99
[2020-10-19] MEDS: LORazepam 2 mg/mL INJ 1 mL 0.5 MG IVP ×3 (01:24→13:42)
[2020-10-19 01:43] LABS: Glucose Point of Care 99 mg/dL (70-110)
[2020-10-19] MEDS: ipratropium-albuterol 3 mL Neb INHALATION ×4 (02:09→20:27)
[2020-10-19 04:54] LABS: ABG PCO2 44.4 mmHg (35-45); Arterial Blood Gas Hematocrit 30.2 % (37-47); Blood Gas Sample Site Brachial, right; Blood Gas Sample Type Arterial; HCO3 ABG 34.3 mmol/L (22-26); PO2 ABG 86.3 mmHg (80.0-100.0)
[2020-10-19 06:06] LABS: Basophils # 0.1 10^3/uL (0.0-0.1); Basophils % 0.5 %; Eosinophils # 0.1 10^3/uL (0.0-0.8); Eosinophils % 0.4 %; Hematocrit 31.1 % (37.0-47.0); Hemoglobin 9.6 g/dL (11.5-15.3); Lymphocytes # 0.2 10^3/uL (0.8-4.8); Lymphocytes % 1.1 %; Mean Corpuscular HGB Conc 30.9 g/dL (30.0-36.0); Mean Corpuscular Hemoglobin 29.8 pg (28.0-34.0); Mean Corpuscular Volume 96.6 fL (81-99); Mean Platelet Volume 12.3 fL (7.4-10.4); Monocytes # 0.8 10^3/uL (0.2-0.9); Monocytes % 5.8 %; Neutrophils # 12.15 10^3/uL (1.8-7.7); Neutrophils % 85.4 %; Nucleated Red Blood Cells # 0.4 /100WBC; Platelet Count 249 10^3/cmm (130-400); Red Blood Count 3.22 10^6/uL (4.1-5.3); Red Cell Distribution Width 18.2 % (12.1-15.1); White Blood Count 14.2 10^3/uL (4.0-10.0)
[2020-10-19 06:47] LABS: Alanine Aminotransferase 447 U/L (0-33); Albumin Level 2.7 g/dL (3.5-5.2); Alkaline Phosphatase 197 IU/L (35-105); Anion Gap 13.9 (5-19); Aspartate Amino Transferase 60 U/L (0-32); Blood Urea Nitrogen 21 mg/dL (8-23); C Reactive Protein 182.9 mg/L (0.0-4.9); Calcium 8.8 mg/dL (8.5-10.5); Carbon Dioxide 32 mmol/L (22-29); Chloride 107 mmol/L (98-107); Globulin 3.8 g/dL (1.3-4.6); Glomerular Filtration Rate 55.3 mL/min (90-130); Glucose 88 mg/dL (65-115); Magnesium 2.1 mg/dL (1.7-2.3); NT Pro B Type Natriuretic Pept 15658 pg/mL (0-125); Osmolality Calculated 312 mOsm/kg (285-295); Phosphorus 3.2 mg/dL (2.5-4.5); Slide Review Slide Review Perform; Sodium 150 mmol/L (136-145); Total Bilirubin 2.3 mg/dL (0.15-1.2); Total Protein 6.5 g/dL (6.6-8.7)
[2020-10-19 06:59] LABS: Potassium 2.9 mmol/L (3.5-5.1)
--- NOTE | 2020-10-19 07:00 | XRR_ITS ---
PROCEDURE INFORMATION: Exam: XR Chest Exam date and time: 10/19/2020 5:43 AM Age: 65 years old Clinical indication: Shortness of breath; Patient HX: N. V, general weakness, SOB TECHNIQUE: Imaging protocol: XR of the chest. Views: 1 view. COMPARISON: CR (CHEST, ) 10/18/2020 8:05 AM FINDINGS: Lungs: COPD, interstitial disease, and worsening airspace disease. Pleural spaces: Interval enlargement of left pleural effusion. Small right pleural effusion. Heart/Mediastinum: Valve replacement and borderline cardiomegaly. Bones/joints: Osteopenia and degenerative change. XR/XR chest 1V portable [id number] IMPRESSION: 1. COPD, interstitial disease, and worsening airspace disease. 2. Interval enlargement of left pleural effusion. Small right pleural effusion.
[2020-10-19 07:21] LABS: Oxygen Device HHFNC
[2020-10-19 07:30] LABS: Glucose Point of Care 90 mg/dL (70-110)
[2020-10-19] MEDS: piperacillin-tazobactam 3.375 GM in sodium chloride 0.9% (plus) 50 ML IV ×3 (07:38→23:11)
[2020-10-19] MEDS: vancomycin 1,000 MG in sodium chloride 0.9% 250 ML 250 MG IV (07:38)
[2020-10-19 09:27] LABS: Lactate (Lactic Acid level) 1.1 mmol/L (0.5-2.2)
[2020-10-19] MEDS: pantoprazole 40 mg SDV IVP ×2 (09:29→21:27)
[2020-10-19 09:31] LABS: INR 2.42 (0.8-1.2)
[2020-10-19 09:32] LABS: Partial Thromboplastin Time 49.1 SECONDS (23.9-36.7)
[2020-10-19 09:35] LABS: D Dimer 2.52 ug/mIFEU (0-0.59)
[2020-10-19] MEDS: dexmedetomidine 400 MCG in sodium chloride 0.9% (100 ml) 100 ML 6.8 MCG IV (09:44)
[2020-10-19 10:20] LABS: Fibrinogen 760 mg/dL (174-498)
--- NOTE | 2020-10-19 10:28 | P.CONIM_ITS ---
Providers/Reason For Consult Consulting Physican/Specialty*: Con Hdez MD/ Cardiology Reason for Consult*: vfib arrest Requesting Physcian: Can Nixon MD Attending Physician: Susan Kelly MD Primary Care Provider: JUSTIN Mccollum History of Present Illness History of Present Illness 65-year-old lady with history of nonobstructive CAD, PAD, stenting of left subclavian artery, atrial flutter, on chronic anticoagulation with warfarin, systolic and diastolic CHF, EF 28%, moderate AVR in January 2020, COPD, recently quit smoker, emphysema, HTN, HLD, history of mitral valve repair who had sustained a fall down some stairs in August with rib fractures, subsequently splenic rupture, diaphragmatic rupture, transfer to [facility] where she underwent splenectomy and repair respectively, then recently admitted at [facility] for management of atrial fibrillation with RVR, started on amiodarone, Patient presented to hospital with nausea/vomiting and malaise for 2-3 days. She had cardiac arrest x 2 requiring CPR with reported wide complex tachycardia. She was intububated and was recently extubated. Cardiology was consulted as patient had cardiac arrest. Her INR is elevated secondary to possible DIC. She is somnolent. On precedex.Off pressors.She has baseline left bundle branch block. She follows some commands however there is concern for anoxic brain injury Review of Systems General: Reports: ROS unobtainable due to mental status Meds/Allergies Home Medications and Allergies Home Medications Medication Instructions Recorded Confirmed Last Taken Type ascorbate calcium (vitamin C) 500 1 gm PO DAILY@07 tab 08/29/19 10/11/20 10/10/20 History mg tablet INR #1 ea 03/23/20 10/11/20 Unknown Rx nitroglycerin 0.4 mg sublingual 0.4 mg SUBLINGUAL Q5M PRN #30 tab 04/02/20 10/11/20 Unknown Rx tablet ranolazine 500 mg tablet,extended 500 mg PO Q12H #180 tab 06/02/20 10/11/20 10/10/20 Rx release,12 hr amiodarone [Pacerone] 200 mg PO DAILY@07 06/23/20 10/11/20 10/10/20 History citalopram 10 mg PO DAILY@19 06/23/20 10/11/20 10/10/20 History lisinopril 5 mg PO DAILY@07 06/23/20 10/11/20 10/10/20 History simvastatin 40 mg PO DAILY@19 06/23/20 10/11/20 10/10/20 History isosorbide mononitrate 30 mg 30 mg PO DAILY@07 #90 tab 06/25/20 10/11/20 10/10/20 Rx tablet,extended release 24 hr tiotropium bromide 2.5 See Rx Instructions .ROUTE 06/25/20 10/11/20 10/10/20 Rx mcg/actuation mist for inhalation .COMPLEX #4 g prednisone 1 mg tablet See Rx Instructions PO DAILY #200 07/29/20 10/11/20 10/10/20 Rx tab hydroxychloroquine 200 mg PO BID@0700,1900 08/13/20 10/11/20 10/10/20 History melatonin 10 mg PO BEDTIME@2200 PRN 08/13/20 10/11/20 10/10/20 History potassium chloride 20 meq PO TID@07,,08/13/20 10/11/20 10/10/20 History cyclobenzaprine 10 mg tablet 10 mg PO TID PRN #30 tab 08/21/20 10/11/20 Unknown Rx tramadol 50 mg tablet 50 mg PO TID PRN #30 tab 08/21/20 10/11/20 Unknown Rx mupirocin 1 applic TOPICAL TID@07,,08/27/20 10/11/20 08/27/20 History metoprolol succinate 25 mg See Rx Instructions PO .COMPLEX 09/23/20 10/11/20 10/10/20 History tablet,extended release 24 hr albuterol sulfate 90 mcg/actuation 2 puff INHALATION QID PRN #8.5 g 09/30/20 10/11/20 Unknown Rx aerosol inhaler lemborexant 5 mg tablet 5 mg PO BEDTIME@2200 #30 tab 09/30/20 10/11/20 10/10/20 Rx furosemide 40 mg PO BID@07,10/11/20 10/11/20 10/10/20 History warfarin 2 mg PO DAILY 10/11/20 10/11/20 10/10/20 History Allergies Allergy/AdvReac Type Severity Reaction Status Date / Time No Known Allergies Allergy Verified 09/23/20 10:54 Current Medications Current Medications Generic Name Dose Route Start Last Admin Trade Name Freq PRN Reason Stop Dose Admin Albuterol/Ipratropium 3 ml 10/12/20 15:00 10/19/20 08:12 Ipratropium-Albuterol 3 Ml Neb INHALATION 3 ml Q6H.RESPIRATORY SREEDHAR Administration Amiodarone HCl 400 mg 10/17/20 18:34 10/19/20 09:28 Amiodarone 200 Mg Tablet PO Not Given BID SREEDHAR Diltiazem HCl 90 mg 10/17/20 14:00 10/19/20 09:28 Diltiazem 30 Mg Tablet OG-TUBE Not Given Q6H SREEDHAR Enoxaparin Sodium 60 mg 10/12/20 02:00 10/12/20 02:48 Enoxaparin 60 Mg/0.6 Ml Syringe SUBCUT 60 mg Q12H SREEDHAR Administration Hydrocortisone Sodium Succinate 50 mg 10/12/20 09:00 10/14/20 02:06 Hydrocortisone 100 Mg/2 Ml Sdv IVP 50 mg Q6H SREEDHAR Administration Epinephrine HCl 2.5 mg/ Sodium 252.5 mls @ 0 mls/hr 10/14/20 15:30 10/17/20 11:49 Chloride IV 0.5 mcg/min .Q0M SREEDHAR 3 mls/hr Titration Protocol Per Protocol Dexmedetomidine HCl 400 mcg/ 104 mls @ 0 mls/hr 10/14/20 15:45 10/19/20 09:44 Sodium Chloride IV 0.4 mcg/kg/hr .Q0M SREEDHAR 6.8 mls/hr Administration Protocol Per Protocol Sodium Chloride 500 mls @ 0 mls/hr 10/14/20 20:15 10/14/20 20:18 Sodium Chloride 0.9% IV 3 mls/hr .Q0M SREEDHAR Administration Per Protocol Piperacillin Sod/Tazobactam 50 mls @ 12.5 mls/hr 10/16/20 15:30 10/19/20 07:38 Sod 3.375 gm/ Sodium Chloride IV 12.5 mls/hr Q8H SREEDHAR Administration Protocol Vancomycin HCl 1,000 mg/ 250 mls @ 250 mls/hr 10/18/20 08:00 10/19/20 09:57 Sodium Chloride IV Infused Q24H SREEDHAR Infusion Protocol Lorazepam 0.5 mg 10/18/20 14:08 10/19/20 09:29 Lorazepam 2 Mg/Ml Inj 1 Ml IVP 0.5 mg Q4H PRN Administration ANXIETY Pantoprazole Sodium 40 mg 10/12/20 10:00 10/19/20 09:29 Pantoprazole 40 Mg Sdv IVP 40 mg Q12H SREEDHAR Administration PFSH Acute PFSH: Medical History Anticoagulated on warfarin ASHD (arteriosclerotic heart disease) Atrial flutter CHF (congestive heart failure) COPD (chronic obstructive pulmonary disease) Depression Emphysema lung Fall Hyperlipidemia Hypertension Multiple rib fractures Osteoporosis Polymyalgia rheumatica PVD (peripheral vascular disease) Rheumatoid arthritis Surgical History Diaphragm, rupture H/O splenectomy Hx of coronary angioplasty Hx of hysterectomy Hx of mitral valve repair Hx of sinus surgery Hx of tonsillectomy Family History Family/Other Diabetes Cancer Heart disease Katja-Danlos syndrome type VIII Social History Smoking and tobacco status: former smoker Second hand smoke exposure: No Alcohol intake: never Substance/Drug Use: never Lives independently: Yes Household members: other Details: Son Marital status: / Current occupational status: retired History of recent travel: No Current gender identity: Female Vitals/I&O/Wt Last Vital Signs Temp 98.0 F 10/19/20 10:00 Pulse 79 10/19/20 10:00 Resp 23 H 10/19/20 10:00 BP 101/46 10/19/20 10:00 Pulse Ox 95 10/19/20 10:00 10/18/20 10/19/20 10/19/20 22:59 06:59 14:59 Intake Total 201.523 / 801.280 113.645 / 914.925 274.933 / 274.933 Output Total 750 / 1150 725 / 1875 Balance -548.477 / -348.720 -611.355 / -960.075 274.933 / 274.933 Weight last 48 hrs Weight 147 lb Weight 151 lb Weight 151 lb Physical Exam Narrative: EXAM NARRATIVE: Const GENERAL APPEARANCE: cooperative ORIENTATION/CONSCIOUSNESS:Somnolent Resp COMMON NORMALS: normal respiratory effort, No retractions, No use of accessory muscles and clear to auscultation bilaterally AUSCULTATION: clear to auscultation bilaterally Cardio COMMON NORMALS: regular rate, S1 normal heart sound present and S2 normal heart sound present RATE: regular rate RHYTHM: abnormal rhythm HEART SOUNDS: S1 normal heart sound present and S2 normal heart sound present GI COMMON NORMALS: Normal to inspection, nondistended, normoactive bowel sounds present, Soft to palpation and non-tender PALPATION: Yes Soft to palpation Extremity COMMON NORMALS: capillary refill normal, no calf tenderness and no pedal edema Neuro OTHER: Follows commands on the ventilator Urinary Catheter Management^: Conn: Cath Placed During This Visit: yes Reason for Continuing Indwelling Catheter: Accurate Measurement of Urinary Output in Critically Ill Patients Urinary Catheter Date of Insertion: 10/11/20 Urinary Catheter Time of Insertion: 23:00 Data Micro: Micro: Microbiology 10/18/20 08:39 Blood Culture - Pr eliminary Blood NEGATIVE TO NATALY E 10/18/20 08:38 Blood Culture - Pr eliminary Blood NEGATIVE TO NATALY E 10/18/20 09:04 Urine Culture - Pr eliminary Urine Catheterize d A&P Assessment and plan (1) DIC (disseminated intravascular coagulation): Status: Acute (2) Cardiac arrest: Status: Acute (3) Multiorgan failure: Status: Acute (4) Acute respiratory failure with hypoxia: Status: Acute (5) Septic shock: Status: Acute (6) Aortic regurgitation: Status: Acute (7) Hx of mitral valve repair: Status: Acute (8) Atrial flutter: Status: Acute Qualifiers: Atrial flutter type: unspecified Qualified Code(s): I48.92 - Unspecified atrial flutter Patient is overall improving. She had reported VT arrest and had multiorgan failure. If she recovers from current episode, can consider ischemic evaluation. EF on echo is 15-20% Continue amio and cardizem. Heart rates are controlled Patient's INR is still elevated. Recommend holding therapeutic anticoagulation as can increase bleeding risk. Restart once INR is <2 Thank you for involving us with care of this patient.We will continue to follow. Please call with questions. Coding Level of Care Code Acute Senior Media Planner for Chg Fwd Diagnoses DIC (disseminated intravascular coagulation) D65 Cardiac arrest I46.9 Multiorgan failure Acute respiratory failure with hypoxia J96.01 Septic shock A41.9; R65.21 Aortic regurgitation I35.1 Hx of mitral valve repair Z98.890 Atrial flutter I48.92 Atrial flutter type: unspecified
[2020-10-19 11:32] LABS: Glucose Point of Care 87 mg/dL (70-110)
[2020-10-19] MEDS: FUROsemide 10 mg/mL SDV 4mL 40 MG IVP (13:51)
[2020-10-19 14:09] LABS: ABG PCO2 49.7 mmHg (35-45); ABG PH Result 7.44 (7.35-7.45); Arterial Blood Gas Hematocrit 33.3 % (37-47); Base Excess ABG 8.2 mmol/L (-2.0-2.0); Blood Gas Sample Type Arterial; Carboxyhemoglobin 1.6 %THgb (0.4-20.1); HCO3 ABG 33.6 mmol/L (22-26); HGB O2 Sat 89.8 % (95-100); Ionized Calcium Level - ABG 1.3 mmol/L (1.1-1.4); Methemoglobin 0.9 % (0.4-1.5); Oxygen Saturation ABG 92.1; PO2 ABG 65.5 mmHg (80.0-100.0); Total Hemoglobin 10.9 g/dL (12-16)
[2020-10-19 14:20] LABS: Alveolar-Arterial Oxygen Gradi 29.8 mmHg (5-10); Blood Gas Operator Identificat GD; Blood Gas Sample Site Brachial, left
[2020-10-19 14:22] LABS: Oxygen Device NC
--- NOTE | 2020-10-19 14:26 | PC.SLP ---
Pt not medically ready for ENROLLMENT PROCESSOR eval on this date. ENROLLMENT PROCESSOR will attempt assessment tomorrow, if the pt is able.
[2020-10-19 16:44] LABS: Glucose Point of Care 102 mg/dL (70-110)
--- NOTE | 2020-10-19 20:24 | PC.NURSE ---
Dr. Simons notified of Cardizem per OG tube with no OG tube in and patient not being able to safely swallow at this time, and k level being 2.9 this am with no KCL supplement shown on the SEP, Dr. Simons ordered 40 mEq K Ben
[2020-10-19] MEDS: lidocaine 1% 5 ML in potassium chloride premix 100 ML 25 ML IV (21:26)
[2020-10-19] MEDS: dexmedetomidine 400 MCG in sodium chloride 0.9% (100 ml) 100 ML 8.5 MCG IV (22:12)
--- NOTE | 2020-10-19 23:35 | PM.PN ---
Subjective Subjective: Interval history: Patient was seen and discussed with nursing staff a couple of times today. She is not very directly responsive but she is awake. Throughout the day she had some increased work of breathing. IV Lasix was given with good output. Repeat chest x-ray this morning did show increased pulmonary edema compared to prior. She remains on Precedex though working on weaning dose down. CRP is trending down slowly. Low-grade temp noted. Has trended slightly up though percent neutrophils continues to trend downward Medications: Reviewed: Yes Vitals/I&O/Wt Last Vital Signs Temp 98.9 F 10/19/20 16:45 Pulse 100 10/19/20 20:36 Resp 26 H 10/19/20 20:31 BP 153/67 10/19/20 19:30 Pulse Ox 98 10/19/20 20:31 10/19/20 10/19/20 10/20/20 14:59 22:59 06:59 Intake Total 527.300 / 527.300 50 / 577.300 Output Total 275 / 275 450 / 725 Balance 252.300 / 252.300 -400 / -147.700 Weight last 48 hrs Weight 66.678 kg Weight 68.492 kg Weight 68.492 kg Physical Exam Narrative: EXAM NARRATIVE: Patient is awake with eyes open but not directly interactive. Does not follow most commands. She will turn her head towards voice and respond to midline. She is tachypneic with wheezing noted. Rales. Tachycardic but regular. No abnormal movements. Catheter is in place. Dressing intact to right groin. Left groin with central line noted. Conn catheter remains in place. Puffy extremities. Urinary Catheter Management^: Conn: Cath Placed During This Visit: yes Reason for Continuing Indwelling Catheter: Accurate Measurement of Urinary Output in Critically Ill Patients Urinary Catheter Date of Insertion: 10/11/20 Urinary Catheter Time of Insertion: 23:00 Data : 10/19/20 05:09 10/19/20 23:56 Micro: Microbiology 10/18/20 08:39 Blood Culture - Preliminary Blood NEGATIVE TO DATE 10/18/20 08:38 Blood Culture - Preliminary Blood NEGATIVE TO DATE 10/18/20 09:04 Urine Culture - Preliminary Urine Catheterized A&P Assessment and plan (1) Hypoxic brain injury: Status: Acute (2) Septic shock: Status: Acute (3) Acute respiratory failure with hypoxia: Status: Acute (4) Cardiac arrest: Status: Acute (5) NSTEMI (non-ST elevated myocardial infarction): Status: Acute (6) Pneumonia: Present on admission, organism unknown Status: Acute Qualifiers: Pneumonia type: due to unspecified organism Laterality: bilateral Lung location: unspecified part of lung Qualified Code(s): J18.9 - Pneumonia, unspecified organism (7) Acute pyelonephritis: Noted on CT imaging, organism is unknown, cultures not revealing Status: Acute (8) Multiorgan failure: Status: Acute (9) Thickening of wall of gallbladder: Status: Acute (10) Transaminitis: Status: Acute (11) Tongue lesion: Status: Acute (12) Livedo reticularis: Status: Acute (13) Cyanosis: Status: Acute (14) Elevated brain natriuretic peptide (BNP) level: Status: Acute (15) Pulmonary fibrosis: Status: Acute (16) Steroid-induced gastritis: Status: Acute (17) Supratherapeutic international normalized ratio (INR): Status: Acute (18) Lactic acidosis: Status: Acute (19) DIC (disseminated intravascular coagulation): Status: Acute (20) Hx of mitral valve repair: Status: Chronic (21) Atrial flutter: Status: Chronic Qualifiers: Atrial flutter type: unspecified Qualified Code(s): I48.92 - Unspecified atrial flutter (22) COPD (chronic obstructive pulmonary disease): Status: Chronic Qualifiers: COPD type: unspecified COPD Qualified Code(s): J44.9 - Chronic obstructive pulmonary disease, unspecified (23) Post-splenectomy: Status: Chronic Additional A&P Information Continue intermittent IV diuresis Wean off of Precedex as able Continue high flow oxygen Monitor I's and O's closely Remains on vancomycin and Zosyn, review of culture results shows that they were all negative Has scds for DVT prophylaxis Pharmacological DVT prophylaxis has been held due to DIC although looking at labs her platelets have been acceptable I went on and discontinued medications that were held on medication list for clarification, these included home medications, hydrocortisone and the Lovenox Continue neurochecks Conn catheter for close monitoring of urine output Arterial line was removed from right groin, central line currently in left femoral area, depending on clinical course next couple of days need to consider either PICC placement or if able look at transitioning to peripheral IVs Adjustments made to daily lab orders Remains on diltiazem On IV PPI We will see how she does over the next couple of days from a mental status standpoint Need to start planning for placement options If still not at point can try oral intake tomorrow need to consider replacement of NG tube for enteral nutrition We will attempt discussions with family again tomorrow Supportive care otherwise Currently full code Attestations Medical Necessity Statement*: Requires ongoing inpatient care while we continue to titrate off of life-sustaining medications, monitor laboratory studies and continue evaluations as to disposition needs as she improves. Plans are as noted. 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 [employer] Fwd Diagnoses Hypoxic brain injury G93.1 Septic shock A41.9; R65.21 Acute respiratory failure with hypoxia J96.01 Cardiac arrest I46.9 NSTEMI (non-ST elevated myocardial infarction) I21.4 Pneumonia J18.9 Pneumonia type: due to unspecified organism Laterality: bilateral Lung location: unspecified part of lung Acute pyelonephritis N10 Multiorgan failure Thickening of wall of gallbladder K82.8 Transaminitis R74.01 Tongue lesion K14.8 Livedo reticularis R23.1 Cyanosis R23.0 Elevated brain natriuretic peptide (BNP) level R79.89 Pulmonary fibrosis J84.10 Steroid-induced gastritis K29.60; T38.0X5A Supratherapeutic international normalized ratio (INR) R79.1 Lactic acidosis E87.2 DIC (disseminated intravascular coagulation) D65 Hx of mitral valve repair Z98.890 Atrial flutter I48.92 Atrial flutter type: unspecified COPD (chronic obstructive pulmonary disease) J44.9 COPD type: unspecified COPD Post-splenectomy Z90.81
[2020-10-20] VITALS (40 sets, daily range): BP systolic 97–159; BP diastolic 50–119; PULSE 77–123; RESP 18–41; TEMP 36.9–37.5; O2SAT 83–100
[2020-10-20] MEDS: FUROsemide 10 mg/mL SDV 4mL 40 MG IVP (00:02)
[2020-10-20 00:19] LABS: Anion Gap 16.1 (5-19); Blood Urea Nitrogen 21 mg/dL (8-23); Calcium 8.8 mg/dL (8.5-10.5); Carbon Dioxide 32 mmol/L (22-29); Chloride 108 mmol/L (98-107); Glomerular Filtration Rate 62.5 mL/min (90-130); Glucose 106 mg/dL (65-115); Osmolality Calculated 319 mOsm/kg (285-295); Potassium 3.1 mmol/L (3.5-5.1); Sodium 153 mmol/L (136-145)
--- NOTE | 2020-10-20 00:47 | ECG_ITS ---
[facility] Test Date: 2020-10-20 Pat Name: Clementina Mcghee Department: Room: ICU11 Gender: Female Inspecting And Testing Lead Hand: : [id number] Requested By: Adelaida Simons Order Number: [id number] Andrea MD: Neema Barillas M.D. Measurements Intervals [place] Rate: 113 P: 211 KS: 157 QRS: -36 QRSD: 145 T: 121 QT: 368 QTc: 506 Interpretive Statements SINUS TACHYCARDIA MARKED LEFT AXIS DEVIATION [QRS AXIS < -30] LEFT BUNDLE BRANCH BLOCK [120+ ms QRS DURATION, 80+ ms Q/S IN V1/V2, 85+ ms R IN I/aVL/V5/V6] Compared to ECG 10/17/2020 05:40:30 Left-axis deviation now present Electronically Signed On 10-21-2020 7:37:51 CDT by Neema Barillas M.D. [id number]
--- NOTE | 2020-10-20 02:01 | PC.NURSE ---
Dr. Simons notified of RR 35-40 and labored, t.o. for Bipap received
[2020-10-20] MEDS: ipratropium-albuterol 3 mL Neb INHALATION ×4 (02:58→21:41)
[2020-10-20 04:03] LABS: Basophils % 0.2 %; Eosinophils % 0.1 %; Hematocrit 30.1 % (37.0-47.0); Hemoglobin 9.2 g/dL (11.5-15.3); Lymphocytes # 0.5 10^3/uL (0.8-4.8); Lymphocytes % 2.8 %; Mean Corpuscular HGB Conc 30.6 g/dL (30.0-36.0); Mean Corpuscular Hemoglobin 30.4 pg (28.0-34.0); Mean Corpuscular Volume 99.3 fL (81-99); Mean Platelet Volume 11.9 fL (7.4-10.4); Monocytes % 5.7 %; Neutrophils % 83.6 %; Nucleated Red Blood Cells # 0.1 /100WBC; Nucleated Red Blood Cells % 0.5 %; Platelet Count 292 10^3/cmm (130-400); Red Blood Count 3.03 10^6/uL (4.1-5.3); Red Cell Distribution Width 18.6 % (12.1-15.1); White Blood Count 17.3 10^3/uL (4.0-10.0)
[2020-10-20 04:08] LABS: INR 3.16 (0.8-1.2)
[2020-10-20 04:09] LABS: Fibrinogen 736 mg/dL (174-498); Partial Thromboplastin Time 51.1 SECONDS (23.9-36.7)
[2020-10-20 04:11] LABS: D Dimer 2.73 ug/mIFEU (0-0.59)
[2020-10-20 04:36] LABS: Slide Review Slide Review Perform
[2020-10-20 05:24] LABS: ABG PCO2 46.2 mmHg (35-45); ABG PH Result 7.51 (7.35-7.45); Arterial Blood Gas Hematocrit 34.4 % (37-47); Blood Gas Operator Identificat JB; Blood Gas Sample Site Brachial, right; Blood Gas Sample Type Arterial; HCO3 ABG 36.5 mmol/L (22-26); Oxygen Device BIPAP; PO2 ABG 97.9 mmHg (80.0-100.0)
[2020-10-20 05:27] LABS: Alanine Aminotransferase 293 U/L (0-33); Albumin Level 2.6 g/dL (3.5-5.2); Alkaline Phosphatase 129 IU/L (35-105); Anion Gap 15.7 (5-19); Aspartate Amino Transferase 43 U/L (0-32); Blood Urea Nitrogen 21 mg/dL (8-23); Calcium 8.4 mg/dL (8.5-10.5); Carbon Dioxide 32 mmol/L (22-29); Chloride 109 mmol/L (98-107); Glomerular Filtration Rate 62.5 mL/min (90-130); Glucose 112 mg/dL (65-115); Osmolality Calculated 322 mOsm/kg (285-295); Phosphorus 2.9 mg/dL (2.5-4.5); Sodium 154 mmol/L (136-145); Total Bilirubin 2.1 mg/dL (0.15-1.2); Total Protein 6.6 g/dL (6.6-8.7)
[2020-10-20 05:29] LABS: Potassium 2.7 mmol/L (3.5-5.1)
[2020-10-20] MEDS: lidocaine 1% 5 ML in potassium chloride premix 100 ML 25 ML IV ×2 (05:58→09:56)
[2020-10-20 06:14] LABS: Glucose Point of Care 115 mg/dL (70-110)
[2020-10-20] MEDS: piperacillin-tazobactam 3.375 GM in sodium chloride 0.9% (plus) 50 ML IV ×3 (06:31→22:37)
--- NOTE | 2020-10-20 06:46 | PC.NURSE ---
Critical K 2.[address] Simons, 2 bags of 40 mEq K rider orderd
[2020-10-20 07:36] LABS: Vancomycin Trough 11.4 ug/mL (10-15)
--- NOTE | 2020-10-20 07:47 | P.PN_ITS ---
Subjective Subjective: Interval history: Put on bipap ladt night anf received another dose of lasix IX. Prececex not able to be weaned due to restlessness. Still not following commands. Hypokalemic after diuresis yesterday. Tachycardic but has not been able to get oral diltiazem since NG tube was removed. Slight trend upward of white blood count. No documentation of any stool output. Remains on vancomycin and Zosyn. All cultures are no growth to date. Coverage is for presumptive pyelonephritis and pneumonia based on CT imaging, both present at admission. Coagulation studies are trending upward again. Liver functions are trending down. No gross bleeding. Vitals/I&O/Wt Last Vital Signs Temp 98.9 F 10/19/20 16:45 Pulse 115 H 10/20/20 06:07 Resp 30 H 10/20/20 06:00 BP 157/119 10/20/20 06:00 Pulse Ox 99 10/20/20 06:07 10/19/20 10/20/20 10/20/20 22:59 06:59 14:59 Intake Total 146.633 / 673.933 50 / 723.933 Output Total 450 / 725 1200 / 1925 Balance -303.367 / -51.067 -1150 / -1201.067 Weight last 48 hrs Weight 703.068 kg Weight 66.678 kg Physical Exam Narrative: EXAM NARRATIVE: Currently on BiPAP, not as responsive but also on higher dose of Precedex due to respiratory status. Has audible coarse breath sounds. Responds to stimuli. Tachycardic, irregular, abdomen soft with positive bowel sounds, moves all extremities but not following commands. Skin is dry with some tenting noted. Oropharynx also appears dry from what I can see with BiPAP on Urinary Catheter Management^: Conn: Cath Placed During This Visit: yes Reason for Continuing Indwelling Catheter: Accurate Measurement of Urinary Outpu t in Critically Ill Patients Urinary Catheter Date of Insertion: 10/11/20 Urinary Catheter Time of Insertion: 23:00 Data : 10/20/20 03:50 10/20/20 19:09 Micro: Microbiology 10/18/20 09:04 Urine Culture - Final Urine Catheterized 10/18/20 08:39 Blood Culture - Preliminary Blood NEGATIVE TO DATE 10/18/20 08:38 Blood Culture - Preliminary Blood NEGATIVE TO DATE A&P Assessment and plan (1) Hypoxic brain injury: Status: Acute (2) Septic shock: Status: Acute (3) Acute respiratory failure with hypoxia: Status: Acute (4) Cardiac arrest: Status: Acute (5) NSTEMI (non-ST elevated myocardial infarction): Status: Acute (6) Pneumonia: Present on admission, organism unknown Status: Acute Qualifiers: Laterality: bilateral Lung location: unspecified part of lung Pneumonia type: due to unspecified organism Qualified Code(s): J18.9 - Pneumon ia, unspecified organism (7) Acute pyelonephritis: Noted on CT imaging, organism is unknown, cultures not revealing Status: Acute (8) Multiorgan failure: Status: Acute (9) Thickening of wall of gallbladder: Status: Acute (10) Transaminitis: Status: Acute (11) Tongue lesion: Status: Acute (12) Livedo reticularis: Status: Acute (13) Cyanosis: Status: Acute (14) Elevated brain natriuretic peptide (BNP) level: Status: Acute (15) Pulmonary fibrosis: Status: Acute (16) Steroid-induced gastritis: Status: Acute (17) Supratherapeutic international normalized ratio (INR): Status: Acute (18) Lactic acidosis: Status: Acute (19) DIC (disseminated intravascular coagulation): Status: Acute (20) Hx of mitral valve repair: Status: Chronic (21) Atrial flutter: Status: Chronic Qualifiers: Atrial flutter type: unspecified Qualified Code(s): I48.92 - Unspecified atrial flutter (22) COPD (chronic obstructive pulmonary disease): Status: Chronic Qualifiers: COPD type: unspecified COPD Qualified Code(s): J44.9 - Chronic obstructive pulmonary disease, unspecified (23) Post-splenectomy: Status: Chronic Additional A&P Information Add cardizem drip given lack or oral intake, stop oral diltiazem for now Check urinalysis Check blood culture from central line If diarrhea, check stool for c diff Consider gastric tube placement today Required transition back to BiPAP last night so may not be possible to place feeding tube Continue intermittent IV diuresis Monitor I's and O's closely, currently with 8L negative fluid balance for stay Try to keep on lowest possible dose of Precedex, hopefully we can get it off today Discussed with respiratory and will work on transitioning back to high flow heated oxygen Monitor respiratory status closely for need for additional support Continue nebulizers, add inhaled steroids Remains on vancomycin and Zosyn, review of culture results shows that they were all negative Has SCDs for DVT prophylaxis Pharmacological DVT prophylaxis has been held due to DIC although looking at labs her platelets have been acceptable and no gross bleeding presebntly, consider resumption of prophylactic DVT prophylaxis Monitor coags for continnued worsening Continue neurochecks Conn catheter for close monitoring of urine output Consider either PICC placement or if able look at transitioning to peripheral IVs in next 24-48 hours On IV PPI Need to start planning for placement options and overall goals of care, though not yet medically stable for transfer out of ICU Was not able to reach family today for update but did make attempt. Of note julito abadyumiko in the day patient was asking for her son. Supportive care otherwise Currently full code When able to reach family want to consider goals of care including CODE STATUS and consideration for long-term acute care Attestations Medical Necessity Statement*: Requires ongoing inpatient stay for continued critical care management as noted above. 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 Fwd Diagnoses Hypoxic brain injury G93.1 Septic shock A41.9; R65.21 Acute respiratory failure with hypoxia J96.01 Cardiac arrest I46.9 NSTEMI (non-ST elevated myocardial infarction) I21.4 Pneumonia J18.9 Laterality: bilateral Lung location: unspecified part of lung Pneumonia type: due to unspecified organism Acute pyelonephritis N10 Multiorgan failure Thickening of wall of gallbladder K82.8 Transaminitis R74.01 Tongue lesion K14.8 Livedo reticularis R23.1 Cyanosis R23.0 Elevated brain natriuretic peptide (BNP) level R79.89 Pulmonary fibrosis J84.10 Steroid-induced gastritis K29.60; T38.0X5A Supratherapeutic international normalized ratio (INR) R79.1 Lactic acidosis E87.2 DIC (disseminated intravascular coagulation) D65 Hx of mitral valve repair Z98.890 Atrial flutter I48.92 Atrial flutter type: unspecified COPD (chronic obstructive pulmonary disease) J44.9 COPD type: unspecified COPD Post-splenectomy Z90.81
[2020-10-20] MEDS: budesonide 0.5 mg/2 mL Neb INHALATION ×2 (08:17→21:41)
[2020-10-20] MEDS: vancomycin 1,000 MG in sodium chloride 0.9% 250 ML 250 MG IV (08:41)
[2020-10-20 09:34] LABS: Glucose Point of Care 107 mg/dL (70-110)
[2020-10-20] MEDS: pantoprazole 40 mg SDV IVP ×2 (09:56→22:37)
[2020-10-20] MEDS: LORazepam 2 mg/mL INJ 1 mL 0.5 MG IVP ×2 (09:58→21:34)
[2020-10-20 10:04] LABS: Add Urine Culture? Yes; Add Urine Microscopic? YES; Bacteria Urine 1+ /hpf; Bilirubin Urine Neg (Negative); Blood Urine 3+ (Negative); Glucose Urine UA Norm (Normal); Ketones Urine 1+ (Negative); Leukocyte Esterase Urine Negative (Negative); Mucus Urine 1+ /hpf; Nitrate Urine Negative (Negative); Protein Urine Trace (Negative); RBC Urine 50-80 /hpf (0-2); Urine Appearance Clear (CLEAR); Urine Color Yellow (Yellow); Urobilinogen Urine Norm (Negative); pH Urine 5 (5-7)
--- NOTE | 2020-10-20 11:17 | PC.SOCIAL ---
IMM Not Updated Patient not awake at this time, attempted to call son with no answer or voicemail box. Copy placed in patient room and will reattempt.
[2020-10-20 11:24] LABS: Glucose Point of Care 118 mg/dL (70-110)
[2020-10-20 12:16] LABS: Anion Gap 11.3 (5-19); Blood Urea Nitrogen 20 mg/dL (8-23); Calcium 8.1 mg/dL (8.5-10.5); Carbon Dioxide 34 mmol/L (22-29); Chloride 117 mmol/L (98-107); Glomerular Filtration Rate 55.3 mL/min (90-130); Glucose 111 mg/dL (65-115); Osmolality Calculated 325 mOsm/kg (285-295); Potassium 6.3 mmol/L (3.5-5.1); Sodium 156 mmol/L (136-145)
[2020-10-20 13:04] LABS: ABG PH Result 7.49 (7.35-7.45); Alveolar-Arterial Oxygen Gradi 18.4 mmHg (5-10); Arterial Blood Gas Hematocrit 30.1 % (37-47); Base Excess ABG 10.5 mmol/L (-2.0-2.0); Blood Gas Operator Identificat GD; Blood Gas Sample Site Brachial, right; Blood Gas Sample Type Arterial; Carboxyhemoglobin 1.5 %THgb (0.4-20.1); HCO3 ABG 35.1 mmol/L (22-26); HGB O2 Sat 95.3 % (95-100); Ionized Calcium Level - ABG 1.2 mmol/L (1.1-1.4); Methemoglobin 0.9 % (0.4-1.5); Oxygen Device NC; Oxygen Saturation ABG 97.6; PO2 ABG 87.5 mmHg (80.0-100.0); Potassium Level - ABG 3.6 mmol/L (3.5-5.0); Total Hemoglobin 9.8 g/dL (12-16)
--- NOTE | 2020-10-20 14:13 | PC.SOCIAL ---
*IMM UPDATE* Gave IMM update to pt's son, Raghu via phone. Understood and copy left at bedside. Initialed, dated, timed and placed in chart.
[2020-10-20] MEDS: dexmedetomidine 400 MCG in sodium chloride 0.9% (100 ml) 100 ML 8.5 MCG IV (15:49)
[2020-10-20 16:41] LABS: Glucose Point of Care 110 mg/dL (70-110)
[2020-10-20] MEDS: sodium chloride 0.45% 1,000 ML 75 ML IV (18:48)
[2020-10-20 19:25] LABS: Urine Creatinine 66 mg/dL (28-217); Urine Random Sodium 47 mmol/L
[2020-10-20 19:27] LABS: INR 3.18 (0.8-1.2)
[2020-10-20 19:37] LABS: Anion Gap 10.4 (5-19); Blood Urea Nitrogen 20 mg/dL (8-23); Calcium 8.5 mg/dL (8.5-10.5); Carbon Dioxide 33 mmol/L (22-29); Chloride 119 mmol/L (98-107); Creatinine Clr Calc Pharmacy 58.3565; Glomerular Filtration Rate 62.5 mL/min (90-130); Glucose 116 mg/dL (65-115); Osmolality Calculated 332 mOsm/kg (285-295); Potassium 3.4 mmol/L (3.5-5.1); Sodium 159 mmol/L (136-145)
--- NOTE | 2020-10-20 23:34 | PC.NURSE ---
patient not wanting to keep HF NC on, saying Just choke me out, I want to give up
[2020-10-21] VITALS (77 sets, daily range): BP systolic 112–178; BP diastolic 53–108; PULSE 79–117; RESP 18–48; TEMP 37.1–37.7; O2SAT 87–100
[2020-10-21] MEDS: LORazepam 2 mg/mL INJ 1 mL 0.5 MG IVP ×3 (02:04→14:25)
[2020-10-21] MEDS: ipratropium-albuterol 3 mL Neb INHALATION ×4 (03:17→21:04)
[2020-10-21 03:49] LABS: Basophils # 0.1 10^3/uL (0.0-0.1); Basophils % 0.3 %; Eosinophils # 0.1 10^3/uL (0.0-0.8); Eosinophils % 0.4 %; Hematocrit 27.3 % (37.0-47.0); Hemoglobin 8.2 g/dL (11.5-15.3); Lymphocytes # 0.7 10^3/uL (0.8-4.8); Lymphocytes % 4.5 %; Mean Corpuscular Hemoglobin 30.5 pg (28.0-34.0); Mean Corpuscular Volume 101.5 fL (81-99); Monocytes # 1.1 10^3/uL (0.2-0.9); Monocytes % 6.7 %; Neutrophils # 13.03 10^3/uL (1.8-7.7); Neutrophils % 82.9 %; Nucleated Red Blood Cells % 0.2 %; Platelet Count 308 10^3/cmm (130-400); Red Blood Count 2.69 10^6/uL (4.1-5.3); Red Cell Distribution Width 18.9 % (12.1-15.1); White Blood Count 15.7 10^3/uL (4.0-10.0)
[2020-10-21 03:58] LABS: Partial Thromboplastin Time 48.9 SECONDS (23.9-36.7)
[2020-10-21 04:17] LABS: Alanine Aminotransferase 176 U/L (0-33); Albumin Level 2.4 g/dL (3.5-5.2); Alkaline Phosphatase 126 IU/L (35-105); Aspartate Amino Transferase 38 U/L (0-32); Blood Urea Nitrogen 17 mg/dL (8-23); Calcium 8.3 mg/dL (8.5-10.5); Carbon Dioxide 30 mmol/L (22-29); Chloride 119 mmol/L (98-107); Globulin 3.2 g/dL (1.3-4.6); Glomerular Filtration Rate 71.5 mL/min (90-130); Glucose 96 mg/dL (65-115); Osmolality Calculated 329 mOsm/kg (285-295); Phosphorus 2.2 mg/dL (2.5-4.5); Slide Review Slide Review Perform; Sodium 159 mmol/L (136-145); Total Bilirubin 1.5 mg/dL (0.15-1.2); Total Protein 5.6 g/dL (6.6-8.7)
[2020-10-21] MEDS: dexmedetomidine 400 MCG in sodium chloride 0.9% (100 ml) 100 ML 8.5 MCG IV ×2 (04:18→13:23)
--- NOTE | 2020-10-21 05:37 | PC.NURSE ---
Coarse lung sounds and audible upper airway noise noted, 75 ml/hr fluids decreased to 30 ml/hr, Dr. Simons notified and approved decrease in rate, no further orders at this time
[2020-10-21 05:56] LABS: Glucose Point of Care 95 mg/dL (70-110)
--- NOTE | 2020-10-21 06:34 | XR_ITS ---
WS: [id number] Portable AP upright chest, 10/21/2020 Clinical Data: crackles Comparison: Portable chest, 10/19/2020. Findings: The bilateral patchy opacities have increased slightly in the last 2 days. The heart remain s enlarged. Monitor leads are on the chest wall. Midline sternotomy sutures are present. XR/XR chest 1V portable [id number] Impression: 1. Slight increase in bilateral patchy pulmonary opacities. 2. No change in cardiomegaly.
--- NOTE | 2020-10-21 06:39 | PC.NURSE ---
Dr. Simons notified of K 3.0, and increasing coarse lung sounds, orders to stop fluids, cxr and Bumex given
[2020-10-21] MEDS: bumetanide 0.25 mg/mL SDV 4 mL 1 MG IV (06:45)
[2020-10-21] MEDS: piperacillin-tazobactam 3.375 GM in sodium chloride 0.9% (plus) 50 ML IV ×3 (07:39→23:18)
[2020-10-21] MEDS: vancomycin 1,000 MG in sodium chloride 0.9% 250 ML 250 MG IV (07:39)
--- NOTE | 2020-10-21 08:03 | P.PN_ITS ---
Subjective Subjective: Interval history: Patient elevated sodium and potassium yesterday. Clinically look quite dry. Was given some low volume IV fluids and this morning had increased respiratory distress. She required increased high flow oxygen but has not yet required being put back on the BiPAP. Precedex was turned off. She had been following commands and trying to talk yesterday evening but currently is not. Is awake restless. I had staff give her some Ativan. She had received Bumex earlier. She is still negative approximately 8-1/2 L for the course of hospital stay. Still with intermittent low-grade temperature to around 100. Last spike over 100 on Oct 17. Remains on vancomycin and Zosyn. Have not been able to place NG tube due to respiratory status. I had tried to reach the son yesterday without success. Nursing reports that he did stop by yesterday evening later for a few minutes. CODE STATUS was addressed and he indicated he still wants to do everything done. Vitals/I&O/Wt Last Vital Signs Temp 99.8 F H 10/21/20 07:01 Pulse 105 H 10/21/20 07:56 Resp 22 H 10/21/20 07:56 BP 178/80 10/21/20 07:01 Pulse Ox 97 10/21/20 07:56 10/20/20 10/21/20 10/21/20 22:59 06:59 14:59 Intake Total 350 / 1243.167 287.283 / 1530.450 195 / 195 Output Total 550 / 2200 Balance 350 / -406.833 -262.717 / -669.550 195 / 195 Weight last 48 hrs Weight 67.585 kg Weight 70.307 kg Weight 703.068 kg Physical Exam Narrative: EXAM NARRATIVE: On high flow heated oxygen, flushed face, remains tachypneic, some mild supraclavicular retractions, eyes are open but not tracking like she was yesterday. Oropharynx is quite dry. She has coarse crackly breath sounds along with upper airway noise. Irregular rhythm. Abdomen is soft. Conn catheter remains in place. Central line remains intact in the left groin. Skin is dry. There is no pitting edema. Some tenting of the skin is noted. She continues to move all extremities. A bit restless and not following commands. No abnormal movements noted. Urinary Catheter Management^: Conn: Cath Placed During This Visit: yes Reason for Continuing Indwelling Catheter: Accurate Measurement of Urinary Output in Critically Ill Patients Urinary Catheter Date of Insertion: 10/11/20 Urinary Catheter Time of Insertion: 23:00 Data : 10/21/20 03:25 10/21/20 03:25 Micro: Microbiology 10/20/20 08:26 Blood Culture - Preliminary Blood SPECIMEN COLLECTED 10/20/20 08:21 Blood Culture - Preliminary Blood SPECIMEN COLLECTED 10/18/20 09:04 Urine Culture - Final Urine Catheterized CXR: I personally reviewed and interpreted this imaging study as follows: My impression: increased pulmonary edema, more diffuse on right versus l eft A&P Assessment and plan (1) Hypernatremia: Patient clinically appears total body volume depleted. She is not had much in the way of oral intake since extubated. She is negative more than 8 L from the hospital stay. With fluid administration she will have periods of time in which she seems to have more pulmonary edema and receives additional Lasix. She has had hypokalemia as well in part due to diuresis this been intermittent. Status: Acute (2) Hypoxic brain injury: [place] secondary to events from cardiac arrest had 2 events on October 12 totaling approximately 15 minutes of ACLS. Status: Acute (3) Pulmonary fibrosis: Discussed with pulmonolgy and concern is for interstitial pulmonary fibrosis possibly from amioadarone as findings were not present about a year ago. Had been started on amioadarone in the interim as I understand it from last CT images to current. Status: Acute (4) Acute respiratory failure with hypoxia: Present on admission, and progressively worsened to the point that she required intubation. Status: Acute (5) Septic shock: Per discussion with pulmonology and review of notes, shock probably represents cardiogenic shock rather than secondary to infection/septic shock. Cultures have been no growth. With the degree of organ involvement would expect some culture to have come back positive if this was all bacterial in nature. The events from cardiac arrest could account for multiorgan failure. Status: Ruled-out (6) Cardiac arrest: 10/12/2020 Status: Resolved (7) Pneumonia: Present on admission, organism unknown versus progressive pulmonary fibrosis and pulmonary edema Status: Acute Qualifiers: Pneumonia type: due to unspecified organism Laterality: bilateral Lung location: unspecified part of lung Qualified Code(s): J18.9 - Pneumonia, unspecified organism (8) Acute pyelonephritis: Noted on CT imaging, organism is unknown, cultures not revealing Status: Acute (9) NSTEMI (non-ST elevated myocardial infarction): Type II process from cardiac arrest suspected but she also has a history of coronary artery disease Status: Acute (10) Multiorgan failure: Secondary to cardiogenic shock and cardiac arrest Status: Acute (11) Thickening of wall of gallbladder: Unclear current clinical significance Status: Acute (12) Transaminitis: Continues to improve, most likely related to shock liver Status: Acute (13) Steroid-induced gastritis: At the time of admission, had been on steroids for inflammatory and pulmonary reasons Status: Acute (14) Supratherapeutic international normalized ratio (INR): was chronically on coumadin prior to admission Status: Acute (15) DIC (disseminated intravascular coagulation): without gross bleeding; most likely secondary to cardiac arrest and subsequent multiorgan failure Status: Acute (16) Lactic acidosis: Looks like this occurred around the time of the cardiac arrest. Could be secondary to this rather than indicative of septic shock. Status: Resolved (17) Hx of mitral valve repair: Some records indicate history of mitral valve replacement, has not been clarified but no mechanical clicks noted on examination Status: Inactive (18) COPD (chronic obstructive pulmonary disease): Longstanding, severe Status: Chronic Qualifiers: COPD type: unspecified COPD Qualified Code(s): J44.9 - Chronic obstructive pulmonary disease, unspecified (19) Atrial flutter: Chronic. Has been treated with amiodarone, Cardizem. Follows with Dr. Darrius calvo. On Coumadin prior to admission. 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 Coker at the time of admission Status: Acute Additional A&P Information 1 of 4 blood cultures drawn yesterday with gram-positive cocci. Cultures were from the periphery rather than the central line Discussed case with pulmonology today and very briefly with cardiology Continue heated high flow Try to keep off of Precedex Intermittent Ativan as needed for anxiety BiPAP as needed We will institute some NT suctioning Start back on some steroids systemically and increase inhaled steroids Can try to do some manual chest PT predominantly on the right side, avoiding vest therapy secondary to rib fractures within the past couple of months on the left Stopping amiodarone as it may be a contributor to pulmonary fibrosis We will need to determine alternative antiarrhythmic options Continue Cardizem drip while unable to take by mouth Repeat electrolytes followed by adjustments in fluid therapy I think we have to try to hold off on diuresis if we are able to or alternatively offer diuresis but continue fluids Replace potassium as needed Resume anticoagulation given stable platelets, no bleeding had discussed with Dr. Mcrae and he recommended heparin drip Resume warfarin per discussion with Dr. Mcrae if able to take by mouth; yesterday afternoon she was following commands and able to handle small amounts of ice chips but today not cooperative for adequate swallow evaluation Remains on vancomycin and Zosyn Follow-up pending blood cultures If diarrhea, check stool for c diff Consider gastric tube placement when stable from a respiratory standpoint so we can initiate some enteral nutrition May have to other parenteral nutrition if not able to accomplish this soon Monitor I's and O's closely Has SCDs for DVT prophylaxis Conn catheter for close monitoring of urine output Consider either PICC placement or if able look at transitioning to peripheral IVs On IV PPI Need to start planning for placement options and overall goals of care, though not yet medically stable for transfer out of ICU. Would like to have discussion with family about potential transfer to long-term acute care as I think that that is probably an optimal potential course for her. Supportive care otherwise Full code Attestations Medical Necessity Statement*: Requires ongoing inpatient stay for continued critical care management as noted above. Critical Care Time: The high probability of a clinically significant, sudden or life threatening deterioration of the patient's pulmonary system(s) required my full and direct attention, intervention and personal management. The critical care time is as shown. 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 Hypernatremia E87.0 Hypoxic brain injury G93.1 Pulmonary fibrosis J84.10 Acute respiratory failure with hypoxia J96.01 Septic shock A41.9; R65.21 Cardiac arrest I46.9 Pneumonia J18.9 Pneumonia type: due to unspecified organism Laterality: bilateral Lung location: unspecified part of lung Acute pyelonephritis N10 NSTEMI (non-ST elevated myocardial infarction) I21.4 Multiorgan failure Thickening of wall of gallbladder K82.8 Transaminitis R74.01 Steroid-induced gastritis K29.60; T38.0X5A Supratherapeutic international normalized ratio (INR) R79.1 DIC (disseminated intravascular coagulation) D65 Lactic acidosis E87.2 Hx of mitral valve repair Z98.890 COPD (chronic obstructive pulmonary disease) J44.9 COPD type: unspecified COPD Atrial flutter I48.92 Atrial flutter type: unspecified Post-splenectomy Z90.81 Ribs, multiple fractures S22.42XS Encounter type: sequela Fracture type: closed Laterality: left Tongue lesion K14.8
[2020-10-21 08:05] LABS: ABG PH Result 7.49 (7.35-7.45); Blood Gas Allen Test Pos; Blood Gas Operator Identificat CAK; Blood Gas Sample Site Brachial, left; Blood Gas Sample Type Arterial; Oxygen Device HAG
[2020-10-21 08:06] LABS: Alveolar-Arterial Oxygen Gradi 29.5 mmHg (5-10); Arterial Blood Gas Hematocrit 29.9 % (37-47); Base Excess ABG 8.8 mmol/L (-2.0-2.0); Carboxyhemoglobin 1.5 %THgb (0.4-20.1); HCO3 ABG 33.1 mmol/L (22-26); HGB O2 Sat 94.2 % (95-100); Ionized Calcium Level - ABG 1.3 mmol/L (1.1-1.4); Methemoglobin 0.7 % (0.4-1.5); Oxygen Saturation ABG 96.3; PO2 ABG 77.1 mmHg (80.0-100.0); Potassium Level - ABG 2.8 mmol/L (3.5-5.0); Total Hemoglobin 9.7 g/dL (12-16)
[2020-10-21] MEDS: budesonide 0.5 mg/2 mL Neb INHALATION (08:09)
--- NOTE | 2020-10-21 09:54 | PC.CHAP ---
Pastoral Care Encounter/Spiritual Assessment Type of Contact [] Declined inpatient care manager rn visit [] Patient/Family/Request visit [] Outpatient visit [] Follow-up visit [] Physician referral [] Code/Alert [x] Routine visit [] Staff referral [] Actively dying [] Patient sleeping [] Family support [] [] Out of room [] Palliative care [] [] Receiving care in room [] Pre-surgical visit [] Trauma [] Long length of stay [x] ICU visit [] Other: Relational/Emotional Strength [] Patient feels connected with others/family/visitors/staff [] Distress [] Loneliness/isolation [] Abandonment Spirituality of Patient [] Person of Dawn[place] [] Attends Church of their Dawna [] Believes in Prayer [] Reads Bible or Latter Day materials [] There are Spiritual issues to be addressed Family Member Caretaker Interventions [x] Prayer [] Active listening [] Non-anxious presence [] Spiritual/emotional support [] Crisis/trauma care [] Spiritual counseling [] Bereavement support [] Provided bereavement packet [] Provided Bible/devotional materials [] Provided toy/stuffed animal, coloring book to patient or family member [] Provided Communion [] Anointing/[place] [] Salvation [x] Completed spiritual assessment [] Other: Impact on Illness or Injury [] Angry [] Fearful [] Anxious [] Often cries [] Exhaustion [] Unable to work [] Unable to attend yazidism [] Unable to walk/stand [] Unable to read [] Unable to drive [] Unable to eat/drink [] Unable to sleep [] Unable to be with family [] Patient intubated [] Other: Summary Time spent with patient
[2020-10-21] MEDS: pantoprazole 40 mg SDV IVP ×2 (10:17→23:18)
[2020-10-21 11:04] LABS: INR 3.29 (0.8-1.2)
[2020-10-21 11:59] LABS: Glucose Point of Care 99 mg/dL (70-110)
[2020-10-21 16:37] LABS: Glucose Point of Care 95 mg/dL (70-110)
[2020-10-21 18:20] LABS: Blood Urea Nitrogen 14 mg/dL (8-23); Calcium 8.5 mg/dL (8.5-10.5); Chloride 119 mmol/L (98-107); Creatinine Clr Calc Pharmacy 64.4781; Glomerular Filtration Rate 83.5 mL/min (90-130); Glucose 97 mg/dL (65-115); Magnesium 1.8 mg/dL (1.7-2.3); Osmolality Calculated 332 mOsm/kg (285-295); Phosphorus 2.6 mg/dL (2.5-4.5); Uric Acid 4.1 mg/dL (2.4-5.7)
[2020-10-21 18:50] LABS: Sodium 161 mmol/L (136-145)
[2020-10-21 18:51] LABS: Potassium 2.7 mmol/L (3.5-5.1)
[2020-10-21 19:48] LABS: Anion Gap 12.7 (5-19); Carbon Dioxide 32 mmol/L (22-29)
--- NOTE | 2020-10-21 20:08 | PC.NURSE ---
[address] Kelly that patient can not safely swallow pills at this time to take her Coumadin. Orders to wait til after speech eval tomorrow to give patient pills.
--- NOTE | 2020-10-21 20:18 | PC.NURSE ---
Dressing to central line off, central line noted to be out of the skin 5.5 cm, all drips stopped, Dr. Simons notifed of preious as well as patient requiring cardizem and Heparin drip and INR of 3.29 when HCP asked, t.o. given to hold heparin and switch to Lovenox, HCP to come to bedside to assess central line
--- NOTE | 2020-10-21 21:02 | PC.NURSE ---
Dr. Simons at bedside, advanced central line with guide wire, v.o. given to continue with heparin per order and stop Lovenox
[2020-10-21] MEDS: budesonide 0.5 mg/2 mL Neb 1 MG INHALATION (21:03)
[2020-10-21] MEDS: potassium chloride premix 40 MEQ/100 ML PREMIX 25 MEQ IV (21:09)
[2020-10-21] MEDS: heparin drip 25,000 UNIT/500 ML PREMIX 18 UNIT IV (21:17)
[2020-10-21] MEDS: dextrose 5% 1,000 ML 50 ML IV (21:21)
--- NOTE | 2020-10-21 23:31 | PC.NURSE ---
this nurse notified HCP that to this nurse the lungs sound very coarse and requested HCP to assess patient
[2020-10-21 23:44] LABS: Anion Gap 16.4 (5-19); Blood Urea Nitrogen 15 mg/dL (8-23); Calcium 8.6 mg/dL (8.5-10.5); Carbon Dioxide 30 mmol/L (22-29); Chloride 117 mmol/L (98-107); Creatinine Clr Calc Pharmacy 64.4781; Glomerular Filtration Rate 83.5 mL/min (90-130); Glucose 162 mg/dL (65-115); Osmolality Calculated 334 mOsm/kg (285-295); Potassium 3.4 mmol/L (3.5-5.1); Sodium 160 mmol/L (136-145)
[2020-10-22] VITALS (62 sets, daily range): BP systolic 115–170; BP diastolic 55–114; PULSE 80–110; RESP 16–36; TEMP 37–37.7; O2SAT 82–100
[2020-10-22 00:24] LABS: Glucose Point of Care 154 mg/dL (70-110)
--- NOTE | 2020-10-22 00:38 | PC.NURSE ---
Dr. Simons at bedside, informed this nurse the coarse lung sounds are from pulmonary fibrosis, ordered mucomyst nebs per RT
[2020-10-22] MEDS: LORazepam 2 mg/mL INJ 1 mL 0.5 MG IVP ×2 (00:52→08:38)
[2020-10-22] MEDS: acetylcysteine 200 mg/mL SDV 4 mL 100 MG INHALATION ×3 (02:27→14:05)
[2020-10-22] MEDS: ipratropium-albuterol 3 mL Neb INHALATION ×4 (02:28→20:00)
[2020-10-22] MEDS: dexmedetomidine 400 MCG in sodium chloride 0.9% (100 ml) 100 ML 6.8 MCG IV (03:33)
--- NOTE | 2020-10-22 03:37 | PC.NURSE ---
NT suctioning performed per RT, upper airway sounds improved and respiratory effort improved
[2020-10-22 04:09] LABS: Basophils % 0.2 %; Hemoglobin 8.5 g/dL (11.5-15.3); Lymphocytes # 0.3 10^3/uL (0.8-4.8); Mean Corpuscular HGB Conc 30.4 g/dL (30.0-36.0); Mean Corpuscular Hemoglobin 30.1 pg (28.0-34.0); Mean Corpuscular Volume 99.3 fL (81-99); Mean Platelet Volume 12.4 fL (7.4-10.4); Monocytes # 0.3 10^3/uL (0.2-0.9); Neutrophils # 12.97 10^3/uL (1.8-7.7); Nucleated Red Blood Cells % 0.1 %; Platelet Count 347 10^3/cmm (130-400); Red Blood Count 2.82 10^6/uL (4.1-5.3); Red Cell Distribution Width 18.8 % (12.1-15.1); White Blood Count 14.2 10^3/uL (4.0-10.0)
[2020-10-22 04:10] LABS: INR 4.92 (0.8-1.2)
[2020-10-22 04:28] LABS: Magnesium 1.8 mg/dL (1.7-2.3); Phosphorus 2.2 mg/dL (2.5-4.5)
[2020-10-22 04:29] LABS: Alanine Aminotransferase 140 U/L (0-33); Albumin Level 2.6 g/dL (3.5-5.2); Alkaline Phosphatase 112 IU/L (35-105); Anion Gap 12.3 (5-19); Aspartate Amino Transferase 30 U/L (0-32); Blood Urea Nitrogen 17 mg/dL (8-23); Carbon Dioxide 31 mmol/L (22-29); Chloride 120 mmol/L (98-107); Creatinine Clr Calc Pharmacy 64.4781; Globulin 2.8 g/dL (1.3-4.6); Glomerular Filtration Rate 83.5 mL/min (90-130); Glucose 185 mg/dL (65-115); Osmolality Calculated 336 mOsm/kg (285-295); Potassium 3.3 mmol/L (3.5-5.1); Sodium 160 mmol/L (136-145); Total Bilirubin 1.4 mg/dL (0.15-1.2); Total Protein 5.4 g/dL (6.6-8.7)
[2020-10-22 05:11] LABS: Glucose Point of Care 175 mg/dL (70-110)
[2020-10-22 06:42] LABS: Partial Thromboplastin Time 121.1 SECONDS (23.9-36.7)
--- NOTE | 2020-10-22 06:49 | PC.NURSE ---
Dr. Kelly notified of critical PTT 121.1 and decrease of heparin to 14 ml/hr per protocol, no n.o. at this time
[2020-10-22] MEDS: piperacillin-tazobactam 3.375 GM in sodium chloride 0.9% (plus) 50 ML IV ×3 (06:55→23:14)
[2020-10-22] MEDS: budesonide 0.5 mg/2 mL Neb 1 MG INHALATION ×2 (07:57→19:36)
[2020-10-22] MEDS: vancomycin 1,000 MG in sodium chloride 0.9% 250 ML 250 MG IV (08:40)
--- NOTE | 2020-10-22 09:16 | P.PN_ITS ---
Subjective Subjective: Interval history: Did okay overnight. Remains on heated high flow. Did not have acute event. Did not receive additional diuresis last night. Thus far as tolerated low volume D5W. Sodium did not increase further overnight. She maintained good urine output yesterday. We will need to watch output today. Continues to constantly want water. Follows very simple commands this morning. Central line pulled out a bit last evening and was addressed by overnight physician. Working well this morning. Medications: Medication Review Details: On heparin drip, Cardizem drip, Solu- Medrol, IV PPI off of Precedex, receiving intermittent Ativan. Remains on vancomycin and Zosyn. Vitals/I&O/Wt Last Vital Signs Temp 99.9 F H 10/22/20 03:00 Pulse 102 H 10/22/20 08:05 Resp 20 H 10/22/20 08:02 BP 139/106 10/22/20 06:00 Pulse Ox 93 10/22/20 08:02 10/21/20 10/22/20 10/22/20 22:59 06:59 14:59 Intake Total 172.75 / 862.75 435.216 / 1297.966 565 / 565 Output Total 950 / 1950 550 / 2500 Balance -777.25 / -1087.25 -114.784 / -1202.034 565 / 565 Weight last 48 hrs Weight 63.503 kg Weight 67.585 kg Weight 70.307 kg Physical Exam Narrative: EXAM NARRATIVE: On heated high flow oxygen, remains tachypneic, retractions not as prominent today. Does have audible wheezing throughout both lungs. Tachycardic rhythm presently, distant heart sounds. Asking for water. Will squeeze hands laterally and is able to hold swab in her mouth. Oropharynx remains severely dry. Some tenting of the skin is noted. No pitting edema. Abdomen is soft. Conn catheter is in place. Central line is intact in the left groin. Urinary Catheter Management^: Conn: Cath Placed During This Visit: yes Reason for Continuing Indwelling Catheter: Accurate Measurement of Urinary Output in Critically Ill Patients Urinary Catheter Date of Insertion: 10/11/20 Urinary Catheter Time of Insertion: 23:00 Data : 10/22/20 03:30 10/22/20 03:30 Micro: Microbiology 10/20/20 09:37 Urine Culture - Final Urine,Clean Catch 10/20/20 08:26 Blood Culture - Preliminary Blood 10/20/20 08:21 Blood Culture - Preliminary Blood NEGATIVE TO DATE A&P Assessment and plan (1) Hypernatremia: Patient clinically appears total body volume depleted. She is not had much in the way of oral intake since extubated. She is negative more than 9 L from the hospital stay. With fluid administration she will have periods of time in which she seems to have more pulmonary edema and receives additional Lasix. She has had hypokalemia as well in part due to diuresis that has been intermittent. Status: Acute (2) Hypoxic brain injury: [place] secondary to events from cardiac arrest had 2 events on October 12 totaling approximately 15 minutes of ACLS. Status: Acute (3) Pulmonary fibrosis: Discussed with pulmonolgy and concern is for interstitial pulmonary fi brosis possibly from amioadarone as findings were not present about a year ago. Had been started on amioadarone in the interim as I understand it from last CT images to current. Status: Acute (4) Acute respiratory failure with hypoxia: Present on admission, and progressively worsened to the point that she required intubation. Status: Acute (5) Septic shock: Per discussion with pulmonology and review of notes, shock probably r epresents cardiogenic shock rather than secondary to infection/septic shock. Cultures have been no growth. With the degree of organ involvement would expect some culture to have come back positive if this was all bacterial in nature. The events from cardiac arrest could account for multiorgan failure. Status: Ruled-out (6) Cardiac arrest: 10/12/2020 Status: Resolved (7) Pneumonia: Present on admission, organism unknown versus progressive pulmonary fibrosis and pulmonary edema Status: Acute Qualifiers: Pneumonia type: due to unspecified organism Laterality: bilateral Lung location: unspecified part of lung Qualified Code(s): J18.9 - Pneumonia, unspecified organism (8) Acute pyelonephritis: Noted on CT imaging, organism is unknown, cultures not revealing Status: Acute (9) NSTEMI (non-ST elevated myocardial infarction): Type II process from cardiac arrest suspected but she also has a history of coronary artery disease Status: Acute (10) Multiorgan failure: Secondary to cardiogenic shock and cardiac arrest Status: Acute (11) Thickening of wall of gallbladder: Unclear current clinical significance Status: Acute (12) Transaminitis: Further improvement noted, most likely related to shock liver Status: Acute (13) Steroid-induced gastritis: At the time of admission, had been on steroids for inflammatory and pulmonary reasons Status: Acute (14) Supratherapeutic international normalized ratio (INR): was chronically on coumadin prior to admission Status: Acute (15) DIC (disseminated intravascular coagulation): without gross bleeding; most likely secondary to cardiac arrest and subsequent multiorgan failure Status: Acute (16) Lactic acidosis: Looks like this occurred around the time of the cardiac arrest. Could be secondary to this rather than indicative of septic shock. Status: Resolved (17) Hx of mitral valve repair: Some records indicate history of mitral valve replacement, has not been c larified but no mechanical clicks noted on examination Status: Inactive (18) COPD (chronic obstructive pulmonary disease): Longstanding, severe Status: Chronic Qualifiers: COPD type: unspecified COPD Qualified Code(s): J44.9 - Chronic obstructive pulmonary disease, unspecified (19) Atrial flutter: Chronic. Has been treated with amiodarone, Cardizem. Follows with Dr. Rizo outpatient. On Coumadin prior to admission. 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 Coker at the time of admission Status: Acute Additional A&P Information 1 of 4 blood cultures drawn 10/20 with gram-positive cocci. Cultures were from the periphery rather than the central line Continue heated high flow Intermittent NT suction Off of Precedex 10/21 Intermittent Ativan as needed for anxiety Has not required BiPAP since 10/20 Continue Solu-Medrol started yesterday, monitoring response On high-dose inhaled budesonide and duo nebs Mucomyst added last evening Amiodarone stopped yesterday, will discuss with cardiology alternatives Continue Cardizem drip as long as unable to take Cardizem by mouth Stopping amiodarone as it may be a contributor to pulmonary fibrosis Replacing potassium this morning Increase D5W to 75 Repeat electrolytes around noon with adjustments in fluid therapy as appropriate Monitor urine output closely Monitor respiratory status closely Diuresis if necessary but continue fluids given total body volume depletion Continue heparin drip Unable to resume warfarin secondary to inability to take oral intake consistently Continue ice chips and small sips of water Speech therapy is following for when they can do an adequate swallow evaluation Remains on vancomycin and Zosyn Follow-up pending blood cultures If diarrhea, check stool for c diff Consider gastric tube placement when stable from a respiratory standpoint so we can initiate some enteral nutrition --may consider later today depending on how she does from a respiratory standpoint with adjustments in fluids and further NT suction May have to other parenteral nutrition if not able to accomplish this tomorrow a lthough concerned about her tolerating volume much prefer enteral over parenteral if possible Has SCDs for DVT prophylaxis Conn catheter for close monitoring of urine output Consider either PICC placement or if able look at transitioning to peripheral IVs, current drips and high potential for TPN combined with central line in the groin having to be adjusted last evening will go on and proceed with ordering a PICC On IV PPI Need to start planning for placement options and overall goals of care, though not yet medically stable for transfer out of ICU. Would like to have discussion with family about potential transfer to long-term acute care as I think that that is probably an optimal potential course for her. Have not been able to speak to the son thus far. Supportive care otherwise Full code Attestations Medical Necessity Statement*: Requires ongoing inpatient stay for continued management of multiple issues as noted above. Remains at high risk of rapid clinical decline as she recovers from prolonged hospital stay with extensive critical care requirements. Clinical status remains tenuous. 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 Hypernatremia E87.0 Hypoxic brain injury G93.1 Pulmonary fibrosis J84.10 Acute respiratory failure with hypoxia J96.01 Septic shock A41.9; R65.21 Cardiac arrest I46.9 Pneumonia J18.9 Pneumonia type: due to unspecified organism Laterality: bilateral Lung location: unspecified part of lung Acute pyelonephritis N10 NSTEMI (non-ST elevated myocardial infarction) I21.4 Multiorgan failure Thickening of wall of gallbladder K82.8 Transaminitis R74.01 Steroid-induced gastritis K29.60; T38.0X5A Supratherapeutic international normalized ratio (INR) R79.1 DIC (disseminated intravascular coagulation) D65 Lactic acidosis E87.2 Hx of mitral valve repair Z98.890 COPD (chronic obstructive pulmonary disease) J44.9 COPD type: unspecified COPD Atrial flutter I48.92 Atrial flutter type: unspecified Post-splenectomy Z90.81 Ribs, multiple fractures S22.42XS Encounter type: sequela Fracture type: closed Laterality: left Tongue lesion K14.8
--- NOTE | 2020-10-22 09:39 | PC.CHAP ---
Pastoral Care Encounter/Spiritual Assessment Type of Contact [] Declined rural electrification engineer visit [] Patient/Family/Request visit [] Outpatient visit [] Follow-up visit [] Physician referral [] Code/Alert [x] Routine visit [] Staff referral [] Actively dying [] Patient sleeping [] Family support [] [] Out of room [] Palliative care [] [] Receiving care in room [] Pre-surgical visit [] Trauma [] Long length of stay [x] ICU visit [x] Other: first visit rural electrification engineer has noted movement by patient.. Relational/Emotional Strength [] Patient feels connected with others/family/visitors/staff [] Distress [] Loneliness/isolation [] Abandonment Spirituality of Patient [] Person of Dawna [] Attends Yazidi of their Dawna [] Believes in Prayer [] Reads Bible or Faith materials [] There are Spiritual issues to be addressed Commercial Pest Control Representative Interventions [x] Prayer [] Active listening [] Non-anxious presence [] Spiritual/emotional support [] Crisis/trauma care [] Spiritual counseling [] Bereavement support [] Provided bereavement packet [] Provided Bible/devotional materials [] Provided toy/stuffed animal, coloring book to patient or family member [] Provided Communion [] Anointing/[place] [] Salvation [x] Completed spiritual assessment [] Other: Impact on Illness or Injury [] Angry [] Fearful [] Anxious [] Often cries [] Exhaustion [] Unable to work [] Unable to attend yazdanism [] Unable to walk/stand [] Unable to read [] Unable to drive [] Unable to eat/drink [] Unable to sleep [] Unable to be with family [] Patient intubated [] Other: Summary Time spent with patient
[2020-10-22] MEDS: pantoprazole 40 mg SDV IVP ×2 (10:36→23:14)
[2020-10-22 11:30] LABS: Anion Gap 13.1 (5-19); Blood Urea Nitrogen 17 mg/dL (8-23); Calcium 8.5 mg/dL (8.5-10.5); Carbon Dioxide 31 mmol/L (22-29); Chloride 116 mmol/L (98-107); Glomerular Filtration Rate 83.5 mL/min (90-130); Glucose 184 mg/dL (65-115); Osmolality Calculated 330 mOsm/kg (285-295); Potassium 3.1 mmol/L (3.5-5.1); Sodium 157 mmol/L (136-145)
--- NOTE | 2020-10-22 11:45 | PC.NURSE ---
Pt face is noted to be flushed, red in color. NO temp and no new medications at this time. Karyna HYLTON who has worked yesterday states that this is not a new finding, she was noted to have a flushed face yesterday as well.
[2020-10-22 13:03] LABS: ABG PCO2 45.1 mmHg (35-45); ABG PH Result 7.46 (7.35-7.45); Arterial Blood Gas Hematocrit 27.9 % (37-47); Base Excess ABG 7.5 mmol/L (-2.0-2.0); Blood Gas Allen Test Pos; Blood Gas Operator Identificat CAK; Blood Gas Sample Site Brachial, left; Blood Gas Sample Type Arterial; HCO3 ABG 32.2 mmol/L (22-26); Oxygen Device HAG; PO2 ABG 55.8 mmHg (80.0-100.0)
[2020-10-22 13:05] LABS: Glucose Point of Care 170 mg/dL (70-110)
--- NOTE | 2020-10-22 13:45 | PC.SOCIAL ---
IMM Update Pg.2 of IMM updated and reviewed with patient's son who verbalized understanding. Copy provided.
[2020-10-22] MEDS: dextrose 5% 1,000 ML 75 ML IV (14:05)
[2020-10-22 15:45] LABS: Partial Thromboplastin Time 73.8 SECONDS (23.9-36.7)
[2020-10-22 15:48] LABS: Anion Gap 9.8 (5-19); Blood Urea Nitrogen 18 mg/dL (8-23); Calcium 8.5 mg/dL (8.5-10.5); Carbon Dioxide 31 mmol/L (22-29); Chloride 116 mmol/L (98-107); Glomerular Filtration Rate 71.5 mL/min (90-130); Glucose 178 mg/dL (65-115); Magnesium 1.8 mg/dL (1.7-2.3); Osmolality Calculated 324 mOsm/kg (285-295); Phosphorus 2.3 mg/dL (2.5-4.5); Sodium 154 mmol/L (136-145)
[2020-10-22 15:53] LABS: Potassium 2.8 mmol/L (3.5-5.1)
--- NOTE | 2020-10-22 18:12 | P.PN_ITS ---
Subjective Subjective: Interval history: The patient was seen and examined. She is tachypneic but appears comfortable. Able to answer questions and follow commands. Medications: Reviewed: Yes Vitals/I&O/Wt Last Vital Signs Temp 98.7 F 10/22/20 10:30 Pulse 101 H 10/22/20 17:00 Resp 30 H 10/22/20 17:00 BP 163/81 10/22/20 17:00 Pulse Ox 95 10/22/20 17:00 10/22/20 10/22/20 10/22/20 06:59 14:59 22:59 Intake Total 435.216 / 4418.884 1086.167 / 1330.167 150 / 1480.167 Output Total 550 / 2500 200 / 200 150 / 350 Balance -114.784 / -0546.212 6844.167 / 1130.167 0 / 1130.167 Weight last 48 hrs Weight 140 lb Weight 149 lb Physical Exam Narrative: EXAM NARRATIVE: General: Patient is awake alert and oriented, appears to be weak, tachypneic Neck: No JVD Respiratory: Auscultation: Bilateral crackles, occasional wheezing Cardiovascular: Variable first heart sound, distant heart sound Abdomen: Soft, nontender, nondistended, positive bowel sound Skin: Bluish discoloration of toes Neuro: Patient appears to be awake alert and oriented and able to move all extremities Urinary Catheter Management^: Conn: Cath Placed During This Visit: yes Reason for Continuing Indwelling Catheter: Accurate Measurement of Urinary Output in Critically Ill Patients Urinary Catheter Date of Insertion: 10/11/20 Urinary Catheter Time of Insertion: 23:00 Data : 10/22/20 03:30 10/22/20 15:16 Micro: Microbiology 10/20/20 08:26 Blood Culture - Preliminary Blood Staphylococcus sp coag neg 10/20/20 09:37 Urine Culture - Final Urine,Clean Catch Other data: I have reviewed her laboratory, microbiologic and radiologic data. The patient has mild leukocytosis likely secondary to steroid therapy. Her hyponatremia is getting better. She is getting potassium replacement for hypokalemia. The hemoglobin had been low but stable. Last chest x-ray revealed bilateral interstitial opacity like before. A&P Assessment and plan (1) Hypernatremia: The patient had developed hyponatremia secondary to diuresis. Currently she is on D5 drip at 75 cc an hour. Since this morning her serum sodium level have come down to 154 from 160. Given the patient's history of reduced ejection fraction, I am going to reduce the infusion rate to 50 cc an hour for now. In addition, it appears that the patient is able to start swallowing. The optimal way of replenishing the free water deficit would be enteral route. It would be very crucial for us to look out for any evidence of fluid overload as she may not need much IV fluid to go into pulmonary edema. We will continue with gentle hydration. The patient has also developed hypokalemia. I am going to give the patient 60 M EQ of KCl and reevaluate her condition in the morning. Status: Acute (2) Cardiac arrest: The patient suffered from cardiac arrest with multiorgan dysfunction. The patient has improved remarkably. Status: Resolved (3) Acute respiratory failure with hypoxia: The patient continues to require oxygen. She has persistent bilateral infiltrate on chest radiography. This is not secondary to cardiogenic pulmonary edema. Her chest infiltrate had not changed even though she was profoundly diuresed. I believe this is secondary to an interstitial lung disease process likely secondary to amiodarone toxicity. I have come to this conclusion from the followin. There are multiple CT scan of the chest from late last year and in August of this year. The patient has evidence of emphysema and mild reticulation suggestive of pulmonary fibrosis in the apices and the bases however the first time the patient was noted to have groundglass opacity was September 08, 2020. However on that particular CT scan there was bilateral pleural effusion. It is unclear to me exactly when the amiodarone was introduced for her A. fib. The first time I could find amiodarone mentioned in medicine reconciliation was in August 2020. 2. The patient had persistent pulmonary infiltrate even with extensive diuresis without any evidence of pleural effusion. The other possibility would be acute exacerbation of pulmonary fibrosis. The patient had been receiving antibiotic treatment since she was hospitalized. There is no active evidence of infection at this time. Status: Acute (4) Interstitial lung disease: The patient is currently off of amiodarone. I am going to reduce the dose of Solu-Medrol to 40 mg daily which would be equivalent to 60 mg of prednisone daily. I am going to restart the metoprolol and I am hoping she will be able to come off of the Cardizem drip as well as not require any amiodarone in the future. Or, the other plan would be to start the patient on sotalol if necessary. Status: Acute (5) Cardiogenic shock: The patient has heart failure with reduced ejection fraction and she was in cardiogenic shock which had improved with epinephrine. Currently the patient is doing well. Status: Acute (6) COPD (chronic obstructive pulmonary disease): The patient has evidence of emphysema bilaterally. Currently she is on DuoNeb and Pulmicort nebulization. Status: Chronic Qualifiers: COPD type: unspecified COPD Qualified Code(s): J44.9 - Chronic obstructive pulmonary disease, unspecified (7) Supratherapeutic international normalized ratio (INR): Her INR is more than 4.5. At this point I am going to hold off the heparin drip. Patient is going to get bilateral lower extremity Doppler to make sure there is no evidence of blood clot in the arterial venous system and consumption coagulopathy. When her INR drops to 2.2 we will reinitiate the heparin drip. Status: Acute Attestations Medical Necessity Statement*: Will defer to the primary team Coding Level of Care Code Acute Learning Development Specialist for g Fwd Diagnoses Hypernatremia E87.0 Cardiac arrest I46.9 Acute respiratory failure with hypoxia J96.01 Interstitial lung disease J84.9 Cardiogenic shock R57.0 COPD (chronic obstructive pulmonary disease) J44.9 COPD type: unspecified COPD Supratherapeutic international normalized ratio (INR) R79.1
[2020-10-22 21:49] LABS: Partial Thromboplastin Time 44.4 SECONDS (23.9-36.7)
[2020-10-22 21:54] LABS: Blood Urea Nitrogen 19 mg/dL (8-23); Calcium 8.6 mg/dL (8.5-10.5); Carbon Dioxide 29 mmol/L (22-29); Chloride 115 mmol/L (98-107); Glomerular Filtration Rate 62.5 mL/min (90-130); Glucose 171 mg/dL (65-115); Osmolality Calculated 328 mOsm/kg (285-295); Phosphorus 3.7 mg/dL (2.5-4.5); Sodium 156 mmol/L (136-145)
[2020-10-23] VITALS (69 sets, daily range): BP systolic 122–199; BP diastolic 65–118; PULSE 76–167; RESP 17–48; TEMP 36.6–36.7; O2SAT 87–100
--- NOTE | 2020-10-23 01:24 | PC.NURSE ---
At shift change Dr. Kelly informed this nurse she is aware of the patients coarse lung sounds and due to her condition the patient is going to have the coarse lung sounds but she is dry and very much needs to keep the fluids going
--- NOTE | 2020-10-23 01:33 | XR_ITS ---
WS: [id number] Portable AP upright chest, 10/23/2020 Clinical Data: hypoxia worsening Comparison: Portable chest, 10/21/2020. Findings: The dense bilateral pulmonary opacities have increased slightly. There are bilateral effusi ons. The heart is enlarged. The aortic arch is tortuous. Midline sternotomy sutures and an artificial heart valve are seen. There are monitor leads on the chest wall. There is a left subclavian stent. XR/XR chest 1V portable [id number] Impression: 1. Increase in bilateral pulmonary opacities. 2. No change in cardiomegaly. 3. No change in small bilateral effusions.
--- NOTE | 2020-10-23 01:49 | PC.NURSE ---
increased lung coarse lung sounds dyspnea and recquired increased Fio2 on HHF to 50% and 150 ml of urine output so far this shift reported to Dr. Simons, t.o. to decrease Dextrose to 30 ml/hr and CXR
[2020-10-23] MEDS: ipratropium-albuterol 3 mL Neb INHALATION ×4 (02:05→21:03)
--- NOTE | 2020-10-23 03:54 | PC.NURSE ---
O2 sat 82% 50% Fio2, RT increased Fio2 to 55%, O2 gabrielle to 86%, RT then placed patient on Bipap O2 no 96%
[2020-10-23 04:14] LABS: Basophils # 0.1 10^3/uL (0.0-0.1); Basophils % 0.3 %; Hematocrit 27.7 % (37.0-47.0); Hemoglobin 8.3 g/dL (11.5-15.3); Lymphocytes # 0.2 10^3/uL (0.8-4.8); Lymphocytes % 0.7 %; Mean Corpuscular Hemoglobin 29.7 pg (28.0-34.0); Mean Corpuscular Volume 99.3 fL (81-99); Mean Platelet Volume 12.2 fL (7.4-10.4); Monocytes # 0.9 10^3/uL (0.2-0.9); Monocytes % 3.6 %; Neutrophils # 22.77 10^3/uL (1.8-7.7); Neutrophils % 90.1 %; Nucleated Red Blood Cells # 0.1 /100WBC; Nucleated Red Blood Cells % 0.3 %; Platelet Count 370 10^3/cmm (130-400); Red Blood Count 2.79 10^6/uL (4.1-5.3); Red Cell Distribution Width 19.2 % (12.1-15.1); White Blood Count 25.2 10^3/uL (4.0-10.0)
[2020-10-23] MEDS: dextrose 5% 1,000 ML 30 ML IV (04:15)
[2020-10-23 04:18] LABS: Alanine Aminotransferase 115 U/L (0-33); Albumin Level 2.8 g/dL (3.5-5.2); Alkaline Phosphatase 126 IU/L (35-105); Aspartate Amino Transferase 30 U/L (0-32); Blood Urea Nitrogen 22 mg/dL (8-23); Calcium 8.5 mg/dL (8.5-10.5); Carbon Dioxide 32 mmol/L (22-29); Chloride 117 mmol/L (98-107); Globulin 3.8 g/dL (1.3-4.6); Glomerular Filtration Rate 62.5 mL/min (90-130); Glucose 164 mg/dL (65-115); Magnesium 1.8 mg/dL (1.7-2.3); Osmolality Calculated 329 mOsm/kg (285-295); Phosphorus 4.9 mg/dL (2.5-4.5); Sodium 156 mmol/L (136-145); Total Bilirubin 1.5 mg/dL (0.15-1.2); Total Protein 6.6 g/dL (6.6-8.7)
[2020-10-23 04:33] LABS: Slide Review Slide Review Perform
[2020-10-23 05:04] LABS: ABG PCO2 59.1 mmHg (35-45); ABG PH Result 7.35 (7.35-7.45); Arterial Blood Gas Hematocrit 27.8 % (37-47); Base Excess ABG 6.2 mmol/L (-2.0-2.0); Blood Gas Operator Identificat HARKR; Blood Gas Sample Site Brachial, right; Blood Gas Sample Type Arterial; HCO3 ABG 32.9 mmol/L (22-26); Oxygen Device BIPAP; PO2 ABG 74.2 mmHg (80.0-100.0)
[2020-10-23] MEDS: piperacillin-tazobactam 3.375 GM in sodium chloride 0.9% (plus) 50 ML IV (06:40)
[2020-10-23 06:59] LABS: Glucose Point of Care 149 mg/dL (70-110)
[2020-10-23] MEDS: budesonide 0.5 mg/2 mL Neb 1 MG INHALATION ×2 (08:23→21:03)
--- NOTE | 2020-10-23 08:35 | PM.PN ---
Subjective Subjective: Interval history: . Medications: Reviewed: Yes Medication Review Details: Patient remains short of breath tachypneic and tachycardic. Blood pressure is also elevated. Vitals/I&O/Wt Last Vital Signs Temp 97.8 F 10/23/20 02:57 Pulse 102 H 10/23/20 08:21 Resp 35 H 10/23/20 08:21 BP 153/81 10/23/20 06:00 Pulse Ox 95 10/23/20 08:21 10/22/20 10/23/20 10/23/20 22:59 06:59 14:59 Intake Total 200 / 4356.536 7921 / 2915.167 Output Total 150 / 350 400 / 750 Balance 50 / 1180.167 985 / 2165.167 Weight last 48 hrs Weight 145 lb Weight 140 lb Physical Exam Narrative: EXAM NARRATIVE: GENERAL: Patient is awake but fatigued. She is oriented NECK: No jugular vein distension. HEENT: No cyanosis. No icterus. No pallor. HEART: Irregularly S1 and S2. No murmur LUNGS: Decreased breath sound with scattered crackles bilaterally. Right expiratory air movement ABDOMEN: Not examined CENTRAL NERVOUS SYSTEM: Grossly nonfocal. EXTREMITIES: Lower extremities without edema bilaterally. Urinary Catheter Management^: Conn: Cath Placed During This Visit: yes Reason for Continuing Indwelling Catheter: Accurate Measurement of Urinary Output in Critically Ill Patients Urinary Catheter Date of Insertion: 10/11/20 Urinary Catheter Time of Insertion: 23:00 Data : 10/23/20 03:35 10/23/20 03:35 Micro: Microbiology 10/20/20 08:26 Blood Culture - Preliminary Blood Staphylococcus sp coag neg 10/20/20 09:37 Urine Culture - Final Urine,Clean Catch A&P Assessment and plan (1) DIC (disseminated intravascular coagulation): Status: Acute (2) Cardiac arrest: Status: Resolved (3) Multiorgan failure: Status: Acute (4) Acute respiratory failure with hypoxia: Status: Acute (5) Septic shock: Status: Ruled-out (6) Aortic regurgitation: Status: Acute (7) Hx of mitral valve repair: Status: Inactive (8) Atrial flutter: Status: Chronic Qualifiers: Atrial flutter type: unspecified Qualified Code(s): I48.92 - Unspecified atrial flutter She appeared to be euvolemic. She is hyponatremic. She is on D5 for it. Amiodarone was discontinued due to possible toxicity presentation at the moment more consistent with pulmonary fibrosis/pneumonia. Pulmonary colleagues are of the opinion secondary to amiodarone, amiodarone was discontinued. She has severely depressed LV function. Add beta-simran 12.5 mg p.o. twice daily and digoxin. Attestations Medical Necessity Statement*: Patient require continuation hospitalization for above defined care. Coding Level of Care Code Established Pt Acute Parachute Line Tier for [place] Amaya Patient Type Established History Detailed Exam Detailed Medical Decision Making Moderate Complexity Diagnoses DIC (disseminated intravascular coagulation) D65 Cardiac arrest I46.9 Multiorgan failure Acute respiratory failure with hypoxia J96.01 Septic shock A41.9; R65.21 Aortic regurgitation I35.1 Hx of mitral valve repair Z98.890 Atrial flutter I48.92 Atrial flutter type: unspecified
--- NOTE | 2020-10-23 09:03 | P.PN_ITS ---
Subjective Subjective: Interval history: Required replacemnt of bipap last evening for respiraptory rate in 40s and drop in oxygen saturations. Fluid rate decreased. Able to be transitioned back to heated high flow oxygen this morning. Lungs actually sound remarkably better today despite worsening CXR findings. BP up to 190s systolic and decrease in urine output noted. She is weaker and evne having trouble trying to eat but still wants ice chips. Talks some but not as much as yesterday. Medications: Reviewed: Yes Medication Review Details: On Cardizem drip, Solu-Medrol, IV PPI, receiving intermittent Ativan and prn morphine. Vancomycin and Zosyn stopping today. Vitals/I&O/Wt Last Vital Signs Temp 97.8 F 10/23/20 02:57 Pulse 103 H 10/23/20 08:43 Resp 35 H 10/23/20 08:21 BP 153/81 10/23/20 06:00 Pulse Ox 95 10/23/20 08:21 10/22/20 10/23/20 10/23/20 22:59 06:59 14:59 Intake Total 200 / 8485.744 4488 / 2915.167 Output Total 150 / 350 400 / 750 Balance 50 / 1180.167 985 / 2165.167 Weight last 48 hrs Weight 65.771 kg Weight 63.503 kg Physical Exam Narrative: EXAM NARRATIVE: On heated high flow oxygen, tachypneic, sitting up in bed. Improved aerations bilaterally with scattered crackles and wheezes. No clear rhonchi noted. Irregular rhythm, distant heart sounds. No JVD. Oropharynx not as dry. Abdomen soft, positive bowel sounds. Conn catheter is in place. Central line is intact in the left groin. PICC nurse here. Toes on right foot about the same. Palpable DP bilaterally. Moves all extremities. No pitting edema. Genrally weak. Urinary Catheter Management^: Conn: Cath Placed During This Visit: yes Reason for Continuing Indwelling Catheter: Accurate Measurement of Urinary Output in Critically Ill Patients Urinary Catheter Date of Insertion: 10/11/20 Urinary Catheter Time of Insertion: 23:00 Data : 10/23/20 03:35 10/23/20 03:35 Micro: Microbiology 10/20/20 08:26 Blood Culture - Preliminary Blood Staphylococcus sp coag neg 04/13/21 09:37 Urine Culture - Final Urine,Clean Catch A&P Assessment and plan (1) Hypernatremia: Patient clinically appears total body volume depleted, improving with free water Status: Acute (2) Hypoxic brain injury: Suspected status post cardiac arrest with 15 minutes ACLS on 10/12. Has improved significantly. Status: Acute (3) Pulmonary fibrosis: Discussed with pulmonolgy and concern is for interstitial pulmonary fibrosis possibly from amioadarone as findings were not present about a year ago. Had been started on amioadarone in the interim as I understand it from last CT images to current. Status: Acute (4) Acute respiratory failure with hypoxia: Present on admission, and progressively worsened to the point that she required intubation. Status: Acute (5) Septic shock: Per discussion with pulmonology and review of notes, shock probably represents cardiogenic shock rather than secondary to infection/septic shock. Cultures have been no growth. With the degree of organ involvement would expect some culture to have come back positive if this was all bacterial in nature. Th e events from cardiac arrest could account for multiorgan failure. Status: Ruled-out (6) Cardiac arrest: 10/12/2020 Status: Resolved (7) Pneumonia: Present on admission, organism unknown versus progressive pulmonary fibrosis and pulmonary edema. Currently, pulmonary edema not felt to be a significant component despite cxr appearance. COVID was negative on 10/11 via rapid and PCR. Status: Acute Qualifiers: Pneumonia type: due to unspecified organism Laterality: bilateral Lung location: unspecified part of lung Qualified Code(s): J18.9 - Pneumonia, unspecified organism (8) Acute pyelonephritis: Noted on CT imaging, organism is unknown, cultures not revealing Status: Acute (9) NSTEMI (non-ST elevated myocardial infarction): Type II process from cardiac arrest suspected but she also has a history of coronary artery disease Status: Acute (10) Multiorgan failure: Secondary to cardiogenic shock and cardiac arrest Status: Acute (11) Thickening of wall of gallbladder: Unclear current clinical significance Status: Acute (12) Transaminitis: Further improvement noted, most likely related to shock liver Status: Acute (13) Steroid-induced gastritis: At the time of admission, had been on steroids for inflammatory and pulmonary reasons Status: Acute (14) Supratherapeutic international normalized ratio (INR): was chronically on coumadin prior to admission with INR 9, and possibly as high as 16 per information reported to me from Status: Acute (15) DIC (disseminated intravascular coagulation): without gross bleeding; most likely secondary to cardiac arrest and subsequent multiorgan failure Status: Acute (16) Lactic acidosis: Looks like this occurred around the time of the cardiac arrest. Could be secondary to this rather than indicative of septic shock. Status: Resolved (17) Hx of mitral valve repair: Some records indicate history of mitral valve replacement, has not been clarified but no mechanical clicks noted on examination Status: Inactive (18) COPD (chronic obstructive pulmonary disease): Longstanding, severe Status: Chronic Qualifiers: COPD type: unspecified COPD Qualified Code(s): J44.9 - Chronic obstructive pulmonary disease, unspecified (19) Atrial flutter: Chronic. Has been treated with amiodarone, Cardizem. Follows with Dr. Rizo outpatient. On Coumadin prior to admission. Will NOT resume amiodarone due to suspected pulmonary toxicity. 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 Coker at the time of admission Status: Acute Additional A&P Information 1 of 4 blood cultures drawn 10/20 with coag negative staph. Feel contamination at this point. Cultures were from the periphery rather than the central line. Central line cultures NGTD. Elevated WBC - no fever, was started back on steroids, no diarrhea Increased BP noted Discolored toes on right foot Continue heated high flow Intermittent NT suction Bipap when needed Off of Precedex 10/21 Intermittent Ativan as needed for anxiety and prn morphine for resp distress Last required BiPAP evening of 10/22 Continue Solu-Medrol started yesterday, monitoring response On high-dose inhaled budesonide and duo nebs Monitor respiratory status closely Planning repeat ABG in hour or so >> at high risk for reintubation Ultimately needs a bronch but current coagulopathy limits safe options Has not has CT chest this hospital stay; current respiratory status and need for upright positioning limits ability to safely obtain presently. Recheck BNP, DIC profile, CRP, and procalcitonin Amiodarone stopped given concern for pulmonary toxicity; EF prohibits use of sotolal Per discussion with Dr Rizo, will start on metoprolol and digoxin when able to take by mouth >> this am not strong enough to take much Continue cardizem for rate control presently, currently on a drip Will give one dose lasix given decreased urine output and hypertension today Keep on low rate d5w Replacing potassium Speech cleared patient for diet Appreciate nutrition input At this point need to consider TPN as oral intake not adequate due to weakness and respiratory status, gastric tube not a current option due to continued need for intermittent bipap. Need to minimize total volume of TPN as able. Continue oral feeds adjusting TPN as this increases. Has insulin if needed Getting PICC line today; will remove CVL after placement complete Monitor electrolytes and urine output closely Off all anticoagulation due to persistent INR elevation as per discussion with pulmonology Continue to monitor toes and peripheral circulation Arterial and venous dopplers of LE pending read Stop vancomycin and Zosyn today Follow-up pending blood cultures for final If diarrhea, check stool for c diff Urine culture 10/20 with 20-30,000 CFUs mixed octavio Has SCDs for DVT prophylaxis Conn catheter for close monitoring of urine output On IV PPI Referral has been sent to [facility] updated yesterday Supportive care otherwise Full code Attestations Medical Necessity Statement*: Requires ongoing inpatient and ICU care due for management of highly tenuous respiratory status Critical Care Time: The high probability of a clinically significant, sudden or life threatening deterioration of the patient's respiratory, cardiac, metabolic system(s) required my full and direct attention, intervention and personal management. The critical care time is as shown. This time is in addition to time spent performing any reported procedures but includes the following: [x] Data and vital sign review and interpretation [x] Patient assessment, examination and intervention [x] Documentation [x] Medication orders and management Critical Care Time (min): 50 Coding Level of Care Code Acute Anti Tank Missileman for Chg Fwd Diagnoses Hypernatremia E87.0 Hypoxic brain injury G93.1 Pulmonary fibrosis J84.10 Acute respiratory failure with hypoxia J96.01 Septic shock A41.9; R65.21 Cardiac arrest I46.9 Pneumonia J18.9 Pneumonia type: due to unspecified organism Laterality: bilateral Lung location: unspecified part of lung Acute pyelonephritis N10 NSTEMI (non-ST elevated myocardial infarction) I21.4 Multiorgan failure Thickening of wall of gallbladder K82.8 Transaminitis R74.01 Steroid-induced gastritis K29.60; T38.0X5A Supratherapeutic international normalized ratio (INR) R79.1 DIC (disseminated intravascular coagulation) D65 Lactic acidosis E87.2 Hx of mitral valve repair Z98.890 COPD (chronic obstructive pulmonary disease) J44.9 COPD type: unspecified COPD Atrial flutter I48.92 Atrial flutter type: unspecified Post-splenectomy Z90.81 Ribs, multiple fractures S22.42XS Encounter type: sequela Fracture type: closed Laterality: left Tongue lesion K14.8
--- NOTE | 2020-10-23 09:08 | XR_ITS ---
WS: [id number] PORTABLE CHEST HISTORY: PICC PLACEMENT COMPARISON: 10/23/2020 and 10/21/2020 Right-sided PICC line with tip in the distal SVC. Severe multilobar opacifications and reticulations. Slight improvement in aeration as compared to the prior study. Mild bilateral pleural thickening. Slightly greater pleural thickening on the LEFT may be due to the rib fractures. Cardiac size: Mildly enlarged cardiac silhouette. Mediastinum/Aorta: Atherosclerosis aorta. Short arterial stent in the region of the LEFT subclavian a rtery. Osteopenia. Multiple nonhealed lateral LEFT rib fractures. XR/XR chest 1V portable [id number] IMPRESSION: 1. Right-sided PICC line in good position with tip in the distal SVC. 2. Diffuse moderate bilateral scattered opacifications. Probably related to fi brosis with overlying edema.
[2020-10-23] MEDS: FUROsemide 10 mg/mL SDV 4mL 40 MG IVP (09:12)
[2020-10-23] MEDS: vancomycin 1,000 MG in sodium chloride 0.9% 250 ML 250 MG IV (09:14)
[2020-10-23] MEDS: morphine 4 mg/mL SDV 1 mL 2 MG IVP ×2 (09:15→16:49)
[2020-10-23 09:44] LABS: ABG PCO2 45.6 mmHg (35-45); ABG PH Result 7.46 (7.35-7.45); Alveolar-Arterial Oxygen Gradi 30.4 mmHg (5-10); Arterial Blood Gas Hematocrit 29.3 % (37-47); Base Excess ABG 7.8 mmol/L (-2.0-2.0); Blood Gas Allen Test Pos; Blood Gas Operator Identificat CAK; Blood Gas Sample Site Brachial, left; Blood Gas Sample Type Arterial; Carboxyhemoglobin 1.2 %THgb (0.4-20.1); HCO3 ABG 32.5 mmol/L (22-26); HGB O2 Sat 92.4 % (95-100); Ionized Calcium Level - ABG 1.2 mmol/L (1.1-1.4); Methemoglobin 0.7 % (0.4-1.5); Oxygen Device HAG; Oxygen Saturation ABG 94.2; PO2 ABG 66.1 mmHg (80.0-100.0); Potassium Level - ABG 3.1 mmol/L (3.5-5.0); Total Hemoglobin 9.6 g/dL (12-16)
[2020-10-23 10:18] LABS: NT Pro B Type Natriuretic Pept 12381 pg/mL (0-125); Procalcitonin 0.18 ng/mL (0-0.5)
[2020-10-23 10:29] LABS: C Reactive Protein 85.2 mg/L (0.0-4.9)
--- NOTE | 2020-10-23 11:40 | PC.NURSE ---
Notified Dr. Kelly regarding pt SBP remaining in the 190's
[2020-10-23 12:10] LABS: Glucose Point of Care 164 mg/dL (70-110)
[2020-10-23] MEDS: pantoprazole 40 mg SDV IVP ×2 (12:13→21:48)
[2020-10-23 12:15] LABS: Fibrinogen 546 mg/dL (174-498); Partial Thromboplastin Time 50.5 SECONDS (23.9-36.7)
[2020-10-23 12:17] LABS: D Dimer 2.11 ug/mIFEU (0-0.59)
[2020-10-23 12:20] LABS: INR 6.07 (0.8-1.2)
[2020-10-23 13:38] LABS: ABG PCO2 45.7 mmHg (35-45); ABG PH Result 7.46 (7.35-7.45); Arterial Blood Gas Hematocrit 49.9 % (37-47); Base Excess ABG 7.1 mmol/L (-2.0-2.0); Blood Gas Allen Test Pos; Blood Gas Operator Identificat CAK; Blood Gas Sample Site Brachial, left; Blood Gas Sample Type Arterial; HCO3 ABG 32.2 mmol/L (22-26); Oxygen Device HAG; PO2 ABG 74.7 mmHg (80.0-100.0)
[2020-10-23] MEDS: phytonadione (ADULT) 10 mg/mL Ampule 1 mL 5 MG PO (13:52)
[2020-10-23] MEDS: dexmedetomidine 400 MCG in sodium chloride 0.9% (100 ml) 100 ML IV (14:32)
--- NOTE | 2020-10-23 15:05 | PC.NUTR ---
TPN recommendations per MD request: Recommend Central administration of 5% amino acids, 20% dextrose, beginning at 10 ml/hr and increasing by 10ml every 8 hours until goal rate of 42 ml/hr. Providing 880 kcal, 50 g protein. Recommend close monitoring of labs, including electrolytes, blood glucose, and overall fluid volume, and adjust TPN and fluid provision as appropriate.
[2020-10-23] MEDS: digoxin 250 mcg/ml INJ 2 mL IVP ×2 (16:25→20:27)
[2020-10-23 17:18] LABS: Blood Urea Nitrogen 21 mg/dL (8-23); Calcium 8.5 mg/dL (8.5-10.5); Carbon Dioxide 29 mmol/L (22-29); Chloride 117 mmol/L (98-107); Creatinine Clr Calc Pharmacy 63.6965; Glomerular Filtration Rate 71.5 mL/min (90-130); Glucose 148 mg/dL (65-115); Osmolality Calculated 330 mOsm/kg (285-295); Sodium 157 mmol/L (136-145)
[2020-10-23 17:20] LABS: Anion Gap 14.6 (5-19); Potassium 3.6 mmol/L (3.5-5.1)
--- NOTE | 2020-10-23 18:05 | USCV_ITS ---
Clementina Mcghee Age: 65 Gender: F : 1955 Exam Date: 10/23/2020 06:20 Ordering Phys: Lida Mcrae MD Technologist: Idalia Nelson [place] [facility] [place]: HYPOXIA HISTORY: HYPOXIA PROCEDURES: Venous duplex imaging was performed in bilateral lower extremities. The following venous structures were evaluated: common femoral vein, profunda vein, proximal portion of the greater saphenous vein, superficial femoral vein, and the popliteal vein. In addition, the posterior tibial and peroneal trunk were evaluated. Serial compression, augmentation maneuvers, and spectral Doppler flow evaluation were performed. FINDINGS: Normal 2-D Doppler and augmentation and compressibility throughout the lower extremity venous structures. Additional imaging through the proximal calf veins also reveals no thrombus. Limited evaluation of the greater saphenous vein is patent with no thrombus.. CONCLUSIONS No evidence of DVT in the above-mentioned identifiable veins. Dr Neema Barillas MD [facility] (Electronically Signed) Final Date: 23 October 2020 21:49 S
--- NOTE | 2020-10-23 18:22 | USCV_ITS ---
Litzy Clementina Age: 65 Gender: F : 1955 Exam Date: 10/23/2020 06:29 Ordering Phys: Susan Kelly MD Technologist: Idalia Nelson [place] [facility] [place]ication: CYANOTIC TOES, DECREASED PULSES Risk Factors: Previous Vascular Surgery: RIGHT LEFT BP: 153.0 / 81.00 BP: 171.0/ 83.00 0 0 Waveform Velocity (cm/s) Velocity (cm/s) Waveform Triphasic 140.0 Iliac Prox 220.4 Triphasic Triphasic 116.1 Iliac Mid 189.6 Triphasic Triphasic 129.0 Iliac Distal 139.8 Triphasic Triphasic 108.4 SERVICE TESTER 173.0 Triphasic Triphasic 92.6 SFA Prox 78.8 Triphasic Triphasic 101.3 SFA Mid 83.2 Biphasic Triphasic SFA Dist Biphasic 95.5 66.6 Triphasic 50.1 POP 36.1 Biphasic Triphasic 136.0 SCIENTIFIC MANAGER 48.1 Biphasic Triphasic 75.5 DPA 87.6 Triphasic 1.1 SUSANA 0.9 FINDINGS RT SCIENTIFIC MANAGER = 180, RT DPA = 120 LT SCIENTIFIC MANAGER = 160, LT SPA = 150 Resting SUSANA of 1.1 on the right side and 0.9 on the left side Duplex examination revealed a mild diffuse plaques in the iliac and femoral arteries bilaterally CONCLUSIONS No evidence of any significant arterial obstruction, based on the above findings. Mild diffuse plaques in the iliac and femoral arteries bilateral Dr Neema Barillas MD [facility] (Electronically Signed) Final Date: 23 October 2020 20:53 S
[2020-10-23] MEDS: metoprolol tartrate 25 mg Tablet PO (21:30)
[2020-10-24] VITALS (57 sets, daily range): BP systolic 114–170; BP diastolic 50–101; PULSE 65–102; RESP 20–36; TEMP 36.7–37.7; O2SAT 88–100
[2020-10-24 01:13] LABS: Glucose Point of Care 135 mg/dL (70-110)
[2020-10-24] MEDS: ipratropium-albuterol 3 mL Neb INHALATION ×4 (02:41→20:29)
[2020-10-24 04:39] LABS: ABG PCO2 56.8 mmHg (35-45); ABG PH Result 7.41 (7.35-7.45); Arterial Blood Gas Hematocrit 27.2 % (37-47); Base Excess ABG 9.9 mmol/L (-2.0-2.0); Blood Gas Sample Site Brachial, right; Blood Gas Sample Type Arterial; HCO3 ABG 35.9 mmol/L (22-26); Oxygen Device BIPAP
[2020-10-24 05:55] LABS: Glucose Point of Care 168 mg/dL (70-110)
[2020-10-24 06:08] LABS: Basophils # 0.1 10^3/uL (0.0-0.1); Basophils % 0.3 %; Hematocrit 28.8 % (37.0-47.0); Hemoglobin 8.5 g/dL (11.5-15.3); Lymphocytes # 0.3 10^3/uL (0.8-4.8); Lymphocytes % 1.1 %; Mean Corpuscular HGB Conc 29.5 g/dL (30.0-36.0); Mean Corpuscular Hemoglobin 30.4 pg (28.0-34.0); Mean Corpuscular Volume 102.9 fL (81-99); Mean Platelet Volume 13.7 fL (7.4-10.4); Monocytes # 0.7 10^3/uL (0.2-0.9); Monocytes % 2.8 %; Neutrophils # 22.75 10^3/uL (1.8-7.7); Nucleated Red Blood Cells % 0.2 %; Platelet Count 336 10^3/cmm (130-400); Red Cell Distribution Width 19.7 % (12.1-15.1); White Blood Count 25.7 10^3/uL (4.0-10.0)
[2020-10-24 06:44] LABS: INR 1.71 (0.8-1.2)
[2020-10-24] MEDS: dextrose 5% 1,000 ML 30 ML IV (08:03)
[2020-10-24] MEDS: digoxin 125 mcg Tablet PO (08:09)
[2020-10-24] MEDS: metoprolol tartrate 25 mg Tablet PO ×2 (08:09→20:17)
[2020-10-24 08:11] LABS: Neutrophils % 95.5 %
[2020-10-24 08:12] LABS: Slide Review Slide Review Perform
[2020-10-24] MEDS: budesonide 0.5 mg/2 mL Neb 1 MG INHALATION ×2 (08:47→20:28)
[2020-10-24 09:53] LABS: Albumin Level 2.8 g/dL (3.5-5.2); Alkaline Phosphatase 140 IU/L (35-105); Blood Urea Nitrogen 20 mg/dL (8-23); Carbon Dioxide 32 mmol/L (22-29); Chloride 121 mmol/L (98-107); Globulin 3.9 g/dL (1.3-4.6); Glomerular Filtration Rate 83.5 mL/min (90-130); Glucose 98 mg/dL (65-115); Osmolality Calculated 331 mOsm/kg (285-295); Phosphorus 2.5 mg/dL (2.5-4.5); Sodium 159 mmol/L (136-145); Total Bilirubin 1.2 mg/dL (0.15-1.2); Total Protein 6.7 g/dL (6.6-8.7); Triglycerides 165 mg/dL (0-150)
[2020-10-24 09:57] LABS: Alanine Aminotransferase 86 U/L (0-33); Aspartate Amino Transferase 34 U/L (0-32)
[2020-10-24] MEDS: pantoprazole 40 mg SDV IVP ×2 (10:29→22:26)
[2020-10-24 10:37] LABS: Glucose Point of Care 108 mg/dL (70-110)
--- NOTE | 2020-10-24 10:46 | PC.SOCIAL ---
IMM Updated Updated pt on Pg 2 IMM. No questions voiced. Provided pt a copy. Signed, dated, & timed copy in chart.
[2020-10-24] MEDS: morphine 4 mg/mL SDV 1 mL 2 MG IVP (10:48)
--- NOTE | 2020-10-24 11:10 | PC.OT ---
OT tx attempted. Pt's nurse present and monitoring pt at this time. Nurse requests OT tx to be withheld today stating she is using all her energy just to breathe . OT to attempt again tomorrow.
--- NOTE | 2020-10-24 13:17 | PM.PN ---
Subjective Subjective: Interval history: Had some decrease in oxygen saturation last night and was on BiPAP. Put back on high flow heated oxygen this morning. Took it off and became hypoxic and was transiently on up to 70% FiO2 via heated high flow. Currently working on weaning down. She is not doing as well trying to eat breakfast today. Vitals/I&O/Wt Last Vital Signs Temp 98.1 F 10/24/20 04:00 Pulse 82 10/24/20 11:56 Resp 28 H 10/24/20 11:56 BP 160/76 10/24/20 09:00 Pulse Ox 95 10/24/20 11:56 10/23/20 10/24/20 10/24/20 22:59 06:59 14:59 Intake Total 1120 / 1198.692 788.667 / 1987.359 59 / 59 Output Total 200 / 1000 875 / 1875 Balance 920 / 198.692 -86.333 / 112.359 59 / 59 Weight last 48 hrs Weight 67.676 kg Weight 65.771 kg Physical Exam Narrative: EXAM NARRATIVE: On heated high flow oxygen, tachypneic, sitting up in bed. Looks worn out today. Respirations are about the same. Continues with coarse crackles. Irregular rhythm, distant heart sounds. Abdomen soft, decreased bowel sounds. Conn catheter is in place. PICC line intact with clean dressing to the right upper extremity, toes on right foot about the same, although they and the mottling on the knees fluctuate regularly. Palpable DP bilaterally. Moves all extremities. No pitting edema. Weaker today. Skin remains dry. Face is redder. Urinary Catheter Management^: Conn: Cath Placed During This Visit: yes Reason for Continuing Indwelling Catheter: Accurate Measurement of Urinary Output in Critically Ill Patients Urinary Catheter Date of Insertion: 10/11/20 Urinary Catheter Time of Insertion: 23:00 Data : 10/24/20 05:07 10/24/20 08:44 Micro: Microbiology 10/18/20 08:39 Blood Culture - Final Blood NO GROWTH AFTER 5 DAYS 10/18/20 08:38 Blood Culture - Final Blood NO GROWTH AFTER 5 DAYS A&P Assessment and plan (1) Acute respiratory failure with hypoxia: Present on admission, and progressively worsened to the point that she required intubation. Extubated on 10/18/2020. Initially on BiPAP. Transition to heated high flow oxygen. Has been utilizing both the last few days. Retaining gradually more CO2. Gradually tiring. Status: Acute (2) Hypernatremia: Patient clinically appears total body volume depleted, improving with free water although slowly Status: Acute (3) Hypoxic brain injury: Suspected status post cardiac arrest with 15 minutes ACLS on 10/12. Has improved significantly. Status: Acute (4) Pulmonary fibrosis: Discussed with pulmonolgy and concern is for interstitial pulmonary fibrosis possibly from amioadarone as findings were not present about a year ago. Had been started on amioadarone in the interim as I understand it from last CT images to current. Status: Acute (5) Septic shock: Per discussion with pulmonology and review of notes, shock probably represents cardiogenic shock rather than secondary to infection/septic shock. Cultures have been no growth. With the degree of organ involvement would expect some culture to have come back positive if this was all bacterial in nature. The events from cardiac arrest could account for multiorgan failure. Status: Ruled-out (6) Cardiac arrest: 10/12/2020 Status: Resolved (7) Pneumonia: Present on admission, organism unknown versus progressive pulmonary fibrosis and pulmonary edema. Currently, pulmonary edema not felt to be a significant component despite cxr appearance. COVID was negative on 10/11 via rapid and PCR. Status: Acute Qualifiers: Laterality: bilateral Lung location: unspecified part of lung Pneumonia type: due to unspecified organism Qualified Code(s): J18.9 - Pneumonia, unspecified organism (8) Acute pyelonephritis: Noted on CT imaging, organism is unknown, cultures not revealing Status: Acute (9) NSTEMI (non-ST elevated myocardial infarction): Type II process from cardiac arrest suspected but she also has a history of coronary artery disease Status: Acute (10) Multiorgan failure: Secondary to cardiogenic shock and cardiac arrest Status: Acute (11) Thickening of wall of gallbladder: Unclear current clinical significance Status: Acute (12) Transaminitis: Further improvement noted, most likely related to shock liver Status: Acute (13) Steroid-induced gastritis: At the time of admission, had been on steroids for inflammatory and pulmonary reasons Status: Acute (14) Supratherapeutic international normalized ratio (INR): was chronically on coumadin prior to admission with INR 9, and possibly as high as 16 per information reported to me from Status: Acute (15) DIC (disseminated intravascular coagulation): without gross bleeding; most likely secondary to cardiac arrest and subsequent multiorgan failure Status: Acute (16) Lactic acidosis: Looks like this occurred around the time of the cardiac arrest. Could be secondary to this rather than indicative of septic shock. Status: Resolved (17) Hx of mitral valve repair: Some records indicate history of mitral valve replacement, has not been clarified but no mechanical clicks noted on examination Status: Inactive (18) COPD (chronic obstructive pulmonary disease): Longstanding, severe Status: Chronic Qualifiers: COPD type: unspecified COPD Qualified Code(s): J44.9 - Chronic obstructive pulmonary disease, unspecified (19) Atrial flutter: Chronic. Has been treated with amiodarone, Cardizem. Follows with Dr. Rizo outpatient. On Coumadin prior to admission. Will NOT resume amiodarone due to suspected pulmonary toxicity. 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 Coker at the time of admission Status: Acute Additional A&P Information 1 of 4 blood cultures drawn 10/20 with coag negative staph. Feel contamination at this point. Cultures were from the periphery rather than the central line. Central line cultures NGTD. Elevated WBC - no fever, was started back on steroids prior to increase, no diarrhea, no escalation, Increased BP noted Discolored toes on right foot the same, arterial and venous US of legs have been done BiPAP at night Try heated high flow during the day with as needed BiPAP Continue pulmonary toilet Intermittent NT suction Vancomycin and Zosyn stopped on 10/23 after 7 days of treatment Has some pressures around 99, monitor for temperature spike, if occurs check blood cultures and see if can get sputum culture Discussed possibility of bronchoscopy with pulmonology but high risk for procedure secondary to coagulopathy Off of Precedex 10/21 Ativan discontinued secondary to worsening hypercapnia Has as needed morphine if needed for distress Continue Solu-Medrol started 10/22, monitoring response On budesonide and duo nebs Has not has CT chest this hospital stay; current respiratory status and need for upright positioning limits ability to safely obtain presently. Amiodarone stopped given concern for pulmonary toxicity; EF prohibits use of sotolal Per discussion with Dr Rizo, started on metoprolol and digoxin Digoxin asin the morning Cardizem drip has been discontinued Careful use of diuresis when definitive evidence of acute volume overload Continue free water Diet cut back to n.p.o. except for medications due to weak swallow today TPN has been started Appreciate nutrition input Insulin every 6 hours if needed Line removed 10/23, PICC line placed same day Monitor electrolytes and urine output closely Off all anticoagulation due to persistent INR elevation as per discussion with pulmonology Continue to monitor toes and peripheral circulation Arterial and venous dopplers of LE pending read Follow-up pending blood cultures for final If diarrhea, check stool for c diff Urine culture 10/20 with 20-30,000 CFUs mixed octavio Has SCDs for DVT prophylaxis Conn catheter for close monitoring of urine output On IV PPI Referral has been sent to [facility] updated 10/22 Supportive care otherwise Full code Attestations Medical Necessity Statement*: Requires ongoing inpatient stay for management of cardiopulmonary and other issues as noted above. Coding Level of Care Code Acute Pmp Certified Project Manager for [facility] Fwd Diagnoses Acute respiratory failure with hypoxia J96.01 Hypernatremia E87.0 Hypoxic brain injury G93.1 Pulmonary fibrosis J84.10 Septic shock A41.9; R65.21 Cardiac arrest I46.9 Pneumonia J18.9 Laterality: bilateral Lung location: unspecified part of lung Pneumonia type: due to unspecified organism Acute pyelonephritis N10 NSTEMI (non-ST elevated myocardial infarction) I21.4 Multiorgan failure Thickening of wall of gallbladder K82.8 Transaminitis R74.01 Steroid-induced gastritis K29.60; T38.0X5A Supratherapeutic international normalized ratio (INR) R79.1 DIC (disseminated intravascular coagulation) D65 Lactic acidosis E87.2 Hx of mitral valve repair Z98.890 COPD (chronic obstructive pulmonary disease) J44.9 COPD type: unspecified COPD Atrial flutter I48.92 Atrial flutter type: unspecified Post-splenectomy Z90.81 Ribs, multiple fractures S22.42XS Encounter type: sequela Fracture type: closed Laterality: left Tongue lesion K14.8
[2020-10-24] MEDS: AA-Dex 5%-20% w/Lytes 1,000 ML with multivitamin inj 10 ML IV (14:31)
[2020-10-24 18:10] LABS: Glucose Point of Care 130 mg/dL (70-110)
[2020-10-24 18:50] LABS: ABG PH Result 7.38 (7.35-7.45); Alveolar-Arterial Oxygen Gradi 38.4 mmHg (5-10); Arterial Blood Gas Hematocrit 30.5 % (37-47); Base Excess ABG 10.5 mmol/L (-2.0-2.0); Blood Gas Operator Identificat GD; Blood Gas Sample Site Brachial, right; Blood Gas Sample Type Arterial; Carboxyhemoglobin 1.3 %THgb (0.4-20.1); HCO3 ABG 37.3 mmol/L (22-26); Ionized Calcium Level - ABG 1.3 mmol/L (1.1-1.4); Methemoglobin 0.1 % (0.4-1.5); Oxygen Device NC; Oxygen Saturation ABG 89.3; PO2 ABG 57.9 mmHg (80.0-100.0); Potassium Level - ABG 3.4 mmol/L (3.5-5.0); Total Hemoglobin 9.9 g/dL (12-16)
[2020-10-24 18:52] LABS: ABG PCO2 62.6 mmHg (35-45)
[2020-10-24 19:45] LABS: Glucose Point of Care 140 mg/dL (70-110)
[2020-10-24] MEDS: dextrose 5% 250 ML 75 ML IV (19:46)
--- NOTE | 2020-10-24 20:09 | PM.PN ---
Subjective Subjective: Interval history: Oxygen requirement increased today. remains in SR/ST Medications: Reviewed: Yes Vitals/I&O/Wt Last Vital Signs Temp 99.2 F 10/24/20 18:00 Pulse 102 H 10/24/20 18:00 Resp 25 H 10/24/20 18:00 BP 163/77 10/24/20 18:00 Pulse Ox 90 10/24/20 18:00 10/24/20 10/24/20 10/24/20 06:59 14:59 22:59 Intake Total 788.667 / 1987.359 256 / 256 Output Total 875 / 1875 100 / 100 Balance -86.333 / 112.359 256 / 256 -100 / 156 Weight last 48 hrs Weight 149 lb 3.2 oz Weight 145 lb Physical Exam Narrative: EXAM NARRATIVE: GENERAL: Patient is awake and tachypneic NECK: No jugular vein distension. HEENT: No cyanosis. No icterus. No pallor. HEART: S1 and S2. tachycardia+ No murmur LUNGS: Decreased breath sound with scattered crackles bilaterally. coarse breath sounds ABDOMEN: Not examined CENTRAL NERVOUS SYSTEM: awake but not much communicative today EXTREMITIES: Lower extremities without edema bilaterally. Urinary Catheter Management^: Conn: Cath Placed During This Visit: yes Reason for Continuing Indwelling Catheter: Accurate Measurement of Urinary Output in Critically Ill Patients Urinary Catheter Date of Insertion: 10/11/20 Urinary Catheter Time of Insertion: 23:00 Data : 10/24/20 05:07 10/24/20 08:44 A&P Assessment and plan (1) Acute respiratory failure with hypoxia: Status: Acute (2) Cardiac arrest: Status: Resolved (3) Multiorgan failure: Status: Acute (4) Atrial flutter: Status: Chronic Qualifiers: Atrial flutter type: unspecified Qualified Code(s): I48.92 - Unspecified atrial flutter (5) CHF (congestive heart failure): Status: Acute Qualifiers: Heart failure chronicity: acute on chronic Heart failure type: diastolic Qualified Code(s): I50.33 - Acute on chronic diastolic (congestive) heart failure (6) Septic shock: Status: Ruled-out (7) Hx of mitral valve repair: Status: Inactive (8) DIC (disseminated intravascular coagulation): Status: Acute She appeared to be euvolemic. She is hypernatremic and is on D5W for it. Amiodarone was discontinued due to possible toxicity presentation at the moment more consistent with pulmonary fibrosis/pneumonia. Pulmonary colleagues are of the opinion secondary to amiodarone, amiodarone was discontinued. She has severely depressed LV function. Beta-simran 25 mg p.o. twice daily and digoxin. Attestations Medical Necessity Statement*: As per primary team Coding Level of Care Code Acute Community Educator for [facility] Monique Diagnoses Acute respiratory failure with hypoxia J96.01 Cardiac arrest I46.9 Multiorgan failure Atrial flutter I48.92 Atrial flutter type: unspecified CHF (congestive heart failure) I50.33 Heart failure chronicity: acute on chronic Heart failure type: diastolic Septic shock A41.9; R65.21 Hx of mitral valve repair Z98.890 DIC (disseminated intravascular coagulation) D65
[2020-10-24 20:30] LABS: Add Urine Microscopic? YES; Bilirubin Urine Neg (Negative); Blood Urine 2+ (Negative); Glucose Urine UA Norm (Normal); Ketones Urine Negative (Negative); Leukocyte Esterase Urine Negative (Negative); Nitrate Urine Negative (Negative); Protein Urine Trace (Negative); Urine Color Yellow (Yellow); Urobilinogen Urine Norm (Negative); pH Urine 5 (5-7)
[2020-10-24 20:35] LABS: Add Urine Culture? Yes; Bacteria Urine 1+ /hpf; RBC Urine 0-4 /hpf (0-2); Squamous Epithelial Cell Urine 0-4 /hpf (0-5)
[2020-10-25] VITALS (164 sets, daily range): BP systolic 74–161; BP diastolic 31–82; PULSE 63–99; RESP 12–33; TEMP 36.2–37.7; O2SAT 88–100
[2020-10-25 01:32] LABS: Glucose Point of Care 176 mg/dL (70-110)
[2020-10-25 01:40] LABS: ABG PH Result 7.19 (7.35-7.45); Alveolar-Arterial Oxygen Gradi 21.7 mmHg (5-10); Arterial Blood Gas Hematocrit 41.6 % (37-47); Base Excess ABG 6.4 mmol/L (-2.0-2.0); Blood Gas Operator Identificat JB; Blood Gas Sample Site Brachial, right; Blood Gas Sample Type Arterial; Carboxyhemoglobin 1.1 %THgb (0.4-20.1); HCO3 ABG 38.4 mmol/L (22-26); HGB O2 Sat 97.1 % (95-100); Ionized Calcium Level - ABG 1.4 mmol/L (1.1-1.4); Methemoglobin 0.6 % (0.4-1.5); Oxygen Device BIPAP; Oxygen Saturation ABG 98.8; Potassium Level - ABG 3.9 mmol/L (3.5-5.0); Total Hemoglobin 13.6 g/dL (12-16)
--- NOTE | 2020-10-25 02:25 | XRR_ITS ---
PROCEDURE INFORMATION: Exam: XR Chest Exam date and time: 10/25/2020 2:28 AM Age: 65 years old Clinical indication: Device placement; Ett placement (vent status); Additional info: Intubation TECHNIQUE: Imaging protocol: XR of the chest. Views: 1 view. COMPARISON: CR XR chest 1V portable [id number] 10/23/2020 9:15 AM FINDINGS: Tubes, catheters and devices: An endotracheal tube is placed with its tip approximately 3.3 cm from the rafaela. A nasogastric tube is present with its tip in the proximal stomach. Transcutaneous pacemaker leads overlie the chest. EKG leads overlie the chest. A PICC line is placed via the right upper extremity with its tip at the level of the superior vena cava. Lungs: There is indistinctness of the pulmonary vasculature and bilateral increased interstitial opacities, findings suggesting pulmonary edema. Pleural spaces: The left hemidiaphragm is obscured likely secondary to a left pleural effusion. Heart/Mediastinum: Status post mitral valve replacement. Bones/joints: Unremarkable. XR/XR chest 1V portable [id number] IMPRESSION: 1. Indistinct pulmonary vasculature and increased interstitial markings, findings compatible with pulmonary edema. 2. Endotracheal tube tip 3.3 cm from the rafaela. 3. Nasogastric tube tip in proximal stomach 4. Right PICC line tip at the level of the superior vena cava.
[2020-10-25] MEDS: rocuronium 10 mg/mL INJ 5mL 70 MG IV (02:35)
[2020-10-25] MEDS: ipratropium-albuterol 3 mL Neb INHALATION ×4 (02:49→20:25)
--- NOTE | 2020-10-25 03:05 | PM.ACPR ---
Procedure/Consent Time out: Time Out Performed: Yes Consent: Consent for Procedure: Consent obtained from other (indicate) (Son Raghu Darby) and Agrees to proceed with procedure Additional Consent Information: Indication: Acute hypercapnia on BiPAP (patient was obtunded) Consent taken from her son Raghu Darby, consent form signed Preprocedural: Normal vitals saturation 98% systolic blood pressure 122mmhg, heart rate 60s with left bundle branch block pattern Procedure: Patient was given etomidate and rocuronium, she was saturating 100% on BiPAP, endotracheal tube size 8 was passed on first attempt after visualizing vocal cords via fiberoptic galeidoscope without any complication, blade 4 was used, endotracheal tube was visualized passing through the cords, bilateral breath sounds detected, end-tidal CO2 color change detected, she was saturating 100% after placement of ET tube, it was secured at lip by 25 cm Postprocedure complications: Mean arterial pressure dropped to 50, Levophed was started at 8, recycled blood pressure showed mean arterial pressure of 68, systolic blood pressure 112mmhg, Levophed titrated down to 4, heart rate 60, saturation 100% Vent settings: CMV: Tidal volume 480 respiratory rate 16, FiO2 40% PEEP 5, minute ventilation 7 Son updated Acute Procedures Epistaxis Control: Time out performed: Yes Intubation: Time out performed: Yes Sedative: etomidate Mg given: 15 Paralytic: vecuronium Mg given: 70 Laryngoscope: fiber optic video scope Assist device used: fiber optic device ET tube size: 8 Tube secured depth (cm): 25 Tube secured location: lips Tube placement confirmation: visualized tube passing through cords, equal breath sounds bilaterally, no breath sounds over epigastrium, confirmation by capnometry and color change noted Patient tolerated procedure: well Intubation complications: none
[2020-10-25 04:11] LABS: Basophils # 0.1 10^3/uL (0.0-0.1); Basophils % 0.3 %; Eosinophils % 0.1 %; Hematocrit 28.2 % (37.0-47.0); Lymphocytes # 0.3 10^3/uL (0.8-4.8); Lymphocytes % 1.3 %; Mean Corpuscular HGB Conc 28.4 g/dL (30.0-36.0); Mean Corpuscular Hemoglobin 29.7 pg (28.0-34.0); Mean Corpuscular Volume 104.8 fL (81-99); Mean Platelet Volume 13.7 fL (7.4-10.4); Monocytes # 0.7 10^3/uL (0.2-0.9); Monocytes % 3.1 %; Neutrophils # 19.89 10^3/uL (1.8-7.7); Neutrophils % 87.9 %; Nucleated Red Blood Cells % 0.2 %; Platelet Count 346 10^3/cmm (130-400); Red Blood Count 2.69 10^6/uL (4.1-5.3); Red Cell Distribution Width 19.3 % (12.1-15.1); White Blood Count 22.6 10^3/uL (4.0-10.0)
[2020-10-25 04:13] LABS: ABG PCO2 50.3 mmHg (35-45); ABG PH Result 7.48 (7.35-7.45); Arterial Blood Gas Hematocrit 25.9 % (37-47); Base Excess ABG 12.9 mmol/L (-2.0-2.0); Blood Gas Operator Identificat JB; Blood Gas Sample Site Brachial, right; Blood Gas Sample Type Arterial; Blood Gas Tidal Volume 0.48; HCO3 ABG 37.8 mmol/L (22-26); Oxygen Device VENT; PO2 ABG 72.1 mmHg (80.0-100.0)
[2020-10-25 04:40] LABS: INR 1.15 (0.8-1.2)
[2020-10-25 04:41] LABS: Partial Thromboplastin Time 25.4 SECONDS (23.9-36.7)
[2020-10-25 04:55] LABS: Alanine Aminotransferase 58 U/L (0-33); Albumin Level 2.4 g/dL (3.5-5.2); Alkaline Phosphatase 139 IU/L (35-105); Blood Urea Nitrogen 25 mg/dL (8-23); C Reactive Protein 71.6 mg/L (0.0-4.9); Calcium 8.8 mg/dL (8.5-10.5); Carbon Dioxide 35 mmol/L (22-29); Chloride 116 mmol/L (98-107); Globulin 3.3 g/dL (1.3-4.6); Glomerular Filtration Rate 83.5 mL/min (90-130); Glucose 154 mg/dL (65-115); Magnesium 2.1 mg/dL (1.7-2.3); Osmolality Calculated 327 mOsm/kg (285-295); Phosphorus 2.6 mg/dL (2.5-4.5); Sodium 155 mmol/L (136-145); Total Bilirubin 0.8 mg/dL (0.15-1.2); Total Protein 5.7 g/dL (6.6-8.7)
[2020-10-25 04:59] LABS: Slide Review Slide Review Perform
[2020-10-25 05:01] LABS: Anion Gap 8.7 (5-19); Aspartate Amino Transferase 29 U/L (0-32); Potassium 4.7 mmol/L (3.5-5.1)
[2020-10-25 05:02] LABS: Procalcitonin 0.12 ng/mL (0-0.5)
[2020-10-25] MEDS: dextrose 5% 1,000 ML 50 ML IV ×2 (05:44→21:42)
[2020-10-25 06:06] LABS: Digoxin 1.3 ng/mL (0.6-1.2)
[2020-10-25] MEDS: morphine 4 mg/mL SDV 1 mL 2 MG IVP (07:49)
[2020-10-25 07:59] LABS: Glucose Point of Care 176 mg/dL (70-110)
[2020-10-25] MEDS: budesonide 0.5 mg/2 mL Neb INHALATION ×2 (08:17→20:25)
--- NOTE | 2020-10-25 08:56 | P.PN_ITS ---
Subjective Subjective: Interval history: Events of the evening noted. She did not tolerate an attempt to put her on BiPAP last evening and ultimately ended up tiring out and requiring intubation. She was not given any diuresis overnight. Chest x-ray post intubation very similar in appearance to chest x-ray the day prior. She did not have a chest x-ray last night prior to intubation. Vitals/I&O/Wt Last Vital Signs Temp 98.1 F 10/25/20 07:15 Pulse 87 10/25/20 08:15 Resp 16 10/25/20 08:22 BP 145/68 10/25/20 08:00 Pulse Ox 97 10/25/20 08:22 T-max the last 24 hours around 99 10/24/20 10/25/20 10/25/20 22:59 06:59 14:59 Intake Total 79.833 / 335.833 568.738 / 904.571 178.333 / 178.333 Output Total 825 / 825 325 / 1150 Balance -745.167 / -489.167 243.738 / -245.429 178.333 / 178.333 Weight last 48 hrs Weight 61.779 kg Weight 67.676 kg No diuretics given to account for above change Physical Exam Narrative: EXAM NARRATIVE: Intubated, sedated but arousable. Face is not as flushes yesterday. Lungs with crackles bilaterally, regular rhythm, soft, decreased bowel sounds, nontender, Conn catheter in place, PICC line in place in the right upper extremity, knees are no longer mottled, improved color of the distal toes, moves all extremities, not as restless back on the ventilator Urinary Catheter Management^: Conn: Cath Placed During This Visit: yes Reason for Continuing Indwelling Catheter: Accurate Measurement of Urinary Output in Critically Ill Patients Urinary Catheter Date of Insertion: 10/11/20 Urinary Catheter Time of Insertion: 23:00 Data : 10/25/20 03:25 10/25/20 14:50 Other Labs: Laboratory Tests 10/25/20 10/25/20 03:25 03:25 Phosphorus 2.6 Magnesium 2.1 Total Bilirubin 0.8 AST 29 ALT 58 H Alkaline Phosphatase 139 H C-Reactive Protein 71.6 H Albumin 2.4 L Procalcitonin 0.12 Digoxin 1.3 H Laboratory Tests 10/22/20 10/23/20 10/24/20 12:49 13:27 04:28 ABG pH 7.46 H 7.46 H 7.41 ABG pCO2 45.1 H 45.7 H 56.8 H 10/24/20 10/25/20 18:11 01:26 ABG pH 7.38 7.19 L ABG pCO2 62.6 H* 102.0 H* Micro: Microbiology 10/20/20 08:21 Blood Culture - Final Blood NO GROWTH AFTER 5 DAYS 10/25/20 03:25 Blood Culture - Preliminary Blood SPECIMEN COLLECTED 10/25/20 03:25 Blood Culture - Preliminary Blood SPECIMEN COLLECTED CXR: I personally reviewed and interpreted this imaging study as follows: My impression: per my interpretation, CXR without change from previous A&P Assessment and plan (1) Acute respiratory failure with hypoxia: Present on admission Intubated on 10/12/2020 preceeding cardiac arrest, extubated 10/18/2020 Alternated between BiPAP and heated high flow oxygen 10/18-10/24 with FIO2 ranging from 40-70% Intubated on 10/24/2020 after progressively tiring out and developing acute respiratory failure with hypercapnia, hypoxia and respiratory acidosis Diuresed > 10L initially, remains negative > 7L for entire hospital stay Lasix last dose 10/24/19 40mg IV Vanc and Zosyn for 7 days IV, stopped 10/23/2020 1 blood culture bottle with coag negative staph felt to be contaminant, remainder negative to date No sputum cultures have been done Negative covid PCR 10/11/20 Diffuse interstitial opacities Amiodarone toxicity suspected per discussions with pulmonology, has been stopped Would benefit from bronchoscopy but coagulopathy prohibitive in terms of b iospy/carries risk Procalcitonins were elevated after cardiac arrest 10/11: 0.05, 10/13: 1.15, 10/14: 1.38, 10/15: 0.81, 10/16: 0.49 >> normal since BNP 10/11: 11133, low of 4160 [place] 10[place] [address] day of extubation, 41045 on 10/23 with intermittent diuresis CRP 10/11 39, peaked at 230 on 10/16, 71 on 10/25 after DC of antibiotics Status: Acute (2) Hypernatremia: Secondary to volume depletion and diuresis. Tenuous respiratory status has limited the ability to provide enteral nutrition while not intubated and tenuous volume status a challenge with parenteral nutrition. As ability to administer more free water has increased. Status: Acute (3) Pulmonary fibrosis: Discussed with pulmonolgy and concern is for interstitial pulmonary fibrosis possibly from amioadarone toxicity as findings were not present about a year ago. Had been started on amioadarone in the interim as I understand it from last CT images to current. Has not been able to have a biopsy. Steriods resumed 10/22 Status: Acute (4) Septic shock: Per discussion with pulmonology and review of notes, shock probably represents cardiogenic shock rather than secondary to infection/septic shock. Cultures have been no growth. With the degree of organ involvement would expect some culture to have come back positive if this was all bacterial in nature. The events from cardiac arrest could account for multiorgan failure. WBC is increasing after start of systemic steroids on 10/22, T max 99 last few days Vanc/Zosyn stopped after 7 days treatment on 10/22 Status: Ruled-out (5) Cardiac arrest: 10/12/2020 approximately 15 minutes rescusitation with ROSC Status: Resolved (6) Pneumonia: Present on admission, organism unknown versus progressive pulmonary fibrosis and pulmonary edema. COVID was negative on 10/11 via rapid and PCR. Status: Acute Qualifiers: Laterality: bilateral Lung location: unspecified part of lung Pneumonia type: due to unspecified organism Qualified Code(s): J18.9 - Pneumon ia, unspecified organism (7) Acute pyelonephritis: Noted on CT imaging, organism is unknown, urine culture 10/20 with 20- 30,000 CFUs mixed octavio Status: Acute (8) NSTEMI (non-ST elevated myocardial infarction): Type II process from cardiac arrest suspected but she also has a history o f coronary artery disease. Peak troponin 112. Status: Acute (9) Multiorgan failure: Secondary to cardiogenic shock and cardiac arrest Status: Acute (10) Thickening of wall of gallbladder: Unclear current clinical significance Status: Acute (11) Transaminitis: And other LFT elevation from shock liver, near resolution Status: Acute (12) Steroid-induced gastritis: At the time of admission, had been on steroids for inflammatory and pulmonary reasons, on PPI Status: Acute (13) Supratherapeutic international normalized ratio (INR): Was chronically on coumadin prior to admission with INR 9, and possibly as high as 16 per information reported to me. Developed DIC with initial improvement in INR but after attempted anticoagualtion resumption, INR increased again, vitamin K replacement on 10/23/2020 with now normalized INR Status: Acute (14) DIC (disseminated intravascular coagulation): without gross bleeding; secondary to cardiac arrest and subsequent multiorgan failure, lab values trending towards improvement Status: Acute (15) Lactic acidosis: Looks like this occurred around the time of the cardiac arrest. Could be secondary hypoxemia rather than indicative of septic shock. Status: Resolved (16) Hypoxic brain injury: Suspected status post cardiac arrest with 15 minutes ACLS on 10/12. Was following simple commands, responding to questions, wanting to eat, asking for things she wanted, but remained restless at times, anxious prior to reintubation, weak but motor strength equal bilaterally, has not been up out of bed Status: Acute (17) Hx of mitral valve repair: Some records indicate history of mitral valve replacement, has not been clarified but no mechanical clicks noted on examination Status: Inactive (18) COPD (chronic obstructive pulmonary disease): Longstanding, severe Status: Chronic Qualifiers: COPD type: unspecified COPD Qualified Code(s): J44.9 - Chronic obstructive pulmonary disease, unspecified (19) Atrial flutter: Chronic. Has been treated with amiodarone, Cardizem. Follows with Dr. Darrius calvo. On Coumadin prior to admission. Will NOT resume amiodarone due to suspected pulmonary toxicity. TSH 09/09/20 was 3.73. Most recent recommendations based on EF and rate is digoxin and metoprolol. Dig level just above therapeutic range 10/25 so doing changed to every other day. 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 Coker at the time of admission Status: Acute Additional A&P Information 1 of 4 blood cultures drawn 10/20 with coag negative staph. Feel contamination at this point. Cultures were from the periphery rather than the central line. Central line cultures NGF. CVL removed 10/23. 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 Maintain mechanical ventilation currently CT chest today Sputum culture Repeat blood cultures Primaxin and vancomycin per discussion with pulmonology Intermittent diuresis as indicated clinically Start on lovenox treatment dose Repeat blood cultures drawn today Would benefit from bronchoscopy when safe to perform On solumedrol 40mg q 24hr currently Continue pulmicort, duonebs Sedation with fentanyl Monitor blood pressures with sedation, was transiently on levophed last evening Strict I&Os and daily weights Hold digoxin and change to every other day dosing, check level in am before giving Continue metoprolol via NGT Start tube feeds and free water via NGT, stop TPN Urine osmolality pending When next extubated need to monitor nutritional and free water status closely Nutrition following Insulin every 6 hours if needed CVL removed 10/23, PICC line placed 10/23 Conn due to critical care patient on intermittent diuresis and close UOP monitoring; UA 10/24 negative LE and nitrates Stool softeners If diarrhea, check stool for c diff Resumed anticoagulation with lovenox covers for DVT prophylaxis Had venous and arterial dopplers of legs 10/23 On IV PPI Referral has been sent to [facility] await response from review Supportive care otherwise Full code Attestations Medical Necessity Statement*: Requires ongoing management for cardiopulmonary issues noted above Coding Level of Care Code Acute [facility] Cutter for [facility] Diagnoses Acute respiratory failure with hypoxia J96.01 Hypernatremia E87.0 Pulmonary fibrosis J84.10 Septic shock A41.9; R65.21 Cardiac arrest I46.9 Pneumonia J18.9 Laterality: bilateral Lung location: unspecified part of lung Pneumonia type: due to unspecified organism Acute pyelonephritis N10 NSTEMI (non-ST elevated myocardial infarction) I21.4 Multiorgan failure Thickening of wall of gallbladder K82.8 Transaminitis R74.01 Steroid-induced gastritis K29.60; T38.0X5A Supratherapeutic international normalized ratio (INR) R79.1 DIC (disseminated intravascular coagulation) D65 Lactic acidosis E87.2 Hypoxic brain injury G93.1 Hx of mitral valve repair Z98.890 COPD (chronic obstructive pulmonary disease) J44.9 COPD type: unspecified COPD Atrial flutter I48.92 Atrial flutter type: unspecified Post-splenectomy Z90.81 Ribs, multiple fractures S22.42XS Encounter type: sequela Fracture type: closed Laterality: left Tongue lesion K14.8
[2020-10-25] MEDS: pantoprazole 40 mg SDV IVP ×2 (09:05→21:02)
[2020-10-25] MEDS: metoprolol tartrate 25 mg Tablet PO ×2 (09:06→21:02)
--- NOTE | 2020-10-25 09:43 | CTR_ITS ---
PROCEDURE INFORMATION: Exam: CT Chest With Contrast; Diagnostic Exam date and time: 10/25/2020 2:29 PM Age: 65 years old Clinical indication: Prior surgery; Surgery date: 6+ months; Surgery type: Mitral valve, spleenectomy; Patient HX: Resp failure - intubated - pulmonary fibrosis; Additional info: Resp failure, pulmonary fibrosis, chf TECHNIQUE: Imaging protocol: Diagnostic computed tomography of the chest with contrast. Total images: 247 Radiation optimization: All CT scans at this facility use at least one of these dose optimization techniques: automated exposure control; mA and/or kV adjustment per patient size (includes targeted exams where dose is matched to clinical indication); or iterative reconstruction. Contrast material: OMNI 300; Contrast volume: 95 ml; Contrast route: INTRAVENOUS (IV); COMPARISON: CT chest abd pel w con* 09/08/2020 3:00 PM RADIATION DOSE METRICS: Total DLP (mGy-cm): 314.98 FINDINGS: Tubes, catheters and devices: Endotracheal tube in satisfactory position tip above the rafaela. Nasogastric tube tip below the diaphragm tip at the level of the body of the stomach. Lungs: Within the posterior basal segment left lower lobe consolidated alveolar airspace disease is a cystic component that measures 27 mm x 25 mm x 25 mm. Fluid consistency based on CT attenuation values. Subtle enhancing rim or rind. Concern for potential lung abscess versus focal necrosis from pulmonary infarction. Chronic lung disease with findings consistent with chronic usual interstitial pneumonitis. Peripheral acinar emphysema. Tubular and cystic bronchiectasis. Diffuse ground-glass interstitial lung disease. Patches of honeycombing. Pulmonary fibrosis. Bilateral apical parenchymal scarring, right more involved than left. Pleural spaces: Bilateral small pleural effusions, left volume slightly greater than right. Heart: Cardiomegaly. Left ventricular prominence. No visible pericardial effusion. Mild coronary artery disease. Mitral valve prosthesis. Status post sternotomy chest. Pulmonary arteries: No visible evidence of pulmonary embolism/pulmonary arterial thrombus. Aorta: The thoracic aorta is nonaneurysmal. Moderate arteriosclerosis. Left subclavian artery stent which is patent. Lymph nodes: Mildly prominent middle mediastinal and hilar lymph nodes that have demonstrated slight decrease in volume since last evaluation most likely reactive in nature. Spleen: Status post splenectomy. Bones/joints: Old left lateral rib fractures. Mild scoliotic curvature of the spine. Mild degenerative disease of the spine. Soft tissues: Unremarkable for age. CT/CT chest w con* [id number] IMPRESSION: 1. Concern for potential lung abscess versus focal necrosis from pulmonary infarction posterior basal segment left lower lobe is detailed in text above. 2. Chronic lung disease as detailed in text above. 3. Bilateral small pleural effusions. 4. Life support lines. 5. Other nonurgent, nonemergent, chronic, postoperative, and age related findings as detailed in text above. Radiation Dose CTDIVOL = (mGy): DLP = 314.98 (mGy-cm)
[2020-10-25] MEDS: enoxaparin 60 mg/0.6 mL Syringe SUBCUT (10:33)
[2020-10-25 10:38] LABS: Glucose Point of Care 133 mg/dL (70-110)
[2020-10-25 11:59] LABS: Creatine Phosphokinase 23 U/L (26-192)
[2020-10-25] MEDS: vancomycin 1,000 MG in sodium chloride 0.9% 250 ML 250 MG IV (13:37)
[2020-10-25 15:26] LABS: Anion Gap 6.3 (5-19); Blood Urea Nitrogen 24 mg/dL (8-23); Calcium 8.1 mg/dL (8.5-10.5); Carbon Dioxide 33 mmol/L (22-29); Chloride 111 mmol/L (98-107); Glomerular Filtration Rate 83.5 mL/min (90-130); Glucose 404 mg/dL (65-115); Osmolality Calculated 325 mOsm/kg (285-295); Potassium 3.3 mmol/L (3.5-5.1); Sodium 147 mmol/L (136-145)
--- NOTE | 2020-10-25 15:32 | PC.NUTR ---
TUBE FEEDING RECOMMENDATION: Noted TPN was discontinued and tube feeding ordered. Noted tube held at this time-recommend initiate when medically appropriate. Agree with current order for [facility] with goal rate of 30 ml/hr providing 1080 kcal, 45 g PRO, and 565 ml fluid.. Suggest start TF at 10 ml/hr and increase by 10 ml Q6H as tolerated till goal rate is met. Suggest 100 ml H2O flushes Q4H to approach fluid needs or per physician. If well tolerated, will consider recommendation to increase to better meet stimated kcal/protein needs.
--- NOTE | 2020-10-25 15:42 | PM.PN ---
Subjective Subjective: Interval history: Oxygen requirement increased yesterday and ended up requiring ET tube placement. She was placed on Levophed after intubation. Remains in sinus rhythm. Medications: Reviewed: Yes Vitals/I&O/Wt Last Vital Signs Temp 98.1 F 10/25/20 07:15 Pulse 86 10/25/20 14:40 Resp 16 10/25/20 14:33 BP 115/61 10/25/20 14:30 Pulse Ox 95 10/25/20 14:33 10/25/20 10/25/20 10/25/20 06:59 14:59 22:59 Intake Total 568.738 / 904.571 346.333 / 346.333 250 / 596.333 Output Total 325 / 1150 Balance 243.738 / -245.429 346.333 / 346.333 250 / 596.333 Weight last 48 hrs Weight 136 lb 3.2 oz Weight 149 lb 3.2 oz Physical Exam Narrative: EXAM NARRATIVE: GENERAL: Patient is intubated NECK: No jugular vein distension. HEENT: No cyanosis. No icterus. No pallor. HEART: S1 and S2. No murmur LUNGS: Decreased breath sound with scattered crackles bilaterally. coarse breath sounds CENTRAL NERVOUS SYSTEM: Intubated and sedated EXTREMITIES: Lower extremities without edema bilaterally. Cold bilateral toes. Urinary Catheter Management^: Conn: Cath Placed During This Visit: yes Reason for Continuing Indwelling Catheter: Accurate Measurement of Urinary Output in Critically Ill Patients Urinary Catheter Date of Insertion: 10/11/20 Urinary Catheter Time of Insertion: 23:00 Data : 10/25/20 03:25 10/25/20 14:50 Micro: Microbiology 10/20/20 08:21 Blood Culture - Final Blood NO GROWTH AFTER 5 DAYS 10/25/20 03:25 Blood Culture - Preliminary Blood SPECIMEN COLLECTED 10/25/20 03:25 Blood Culture - Preliminary Blood SPECIMEN COLLECTED A&P Assessment and plan (1) Acute respiratory failure with hypoxia: Status: Acute (2) Cardiac arrest: Status: Resolved (3) Multiorgan failure: Status: Acute (4) Atrial flutter: Status: Chronic Qualifiers: Atrial flutter type: unspecified Qualified Code(s): I48.92 - Unspecified atrial flutter (5) CHF (congestive heart failure): Status: Acute Qualifiers: Heart failure chronicity: acute on chronic Heart failure type: diastolic Qualified Code(s): I50.33 - Acute on chronic diastolic (congestive) heart failure (6) Septic shock: Status: Ruled-out (7) DIC (disseminated intravascular coagulation): Status: Acute She is still hypernatremic and is on D5W for it. Amiodarone was discontinued due to possible toxicity presentation at the moment more consistent with pulmonary fibrosis/pneumonia. She has severely depressed LV function. Beta-simran 25 mg p.o. twice daily and digoxin. -She is due to get CT chest today. Attestations Medical Necessity Statement*: Remains critically ill. Time Spent in Patient Care: 16 - 35 minutes (>than 50% of time spent in counselling and/or direct pt care on unit). 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
[2020-10-25] MEDS: iohexol 300 mg/mL 100 mL Btl IV (16:25)
[2020-10-25 17:17] LABS: Glucose Point of Care 208 mg/dL (70-110)
[2020-10-25] MEDS: sennosides-docusate Tablet 1 TAB PO (17:54)
--- NOTE | 2020-10-25 18:28 | PC.NURSE ---
Witnessed Arlet Quesada RN ,waste 93.0 ml Fentanyl gtt.
[2020-10-26] VITALS (110 sets, daily range): BP systolic 88–165; BP diastolic 42–79; PULSE 53–92; RESP 16–21; TEMP 36.3–37.6; O2SAT 90–100
[2020-10-26 00:07] LABS: Glucose Point of Care 145 mg/dL (70-110)
[2020-10-26] MEDS: ipratropium-albuterol 3 mL Neb INHALATION ×4 (02:13→21:20)
[2020-10-26 04:14] LABS: ABG PCO2 48.1 mmHg (35-45); ABG PH Result 7.47 (7.35-7.45); Arterial Blood Gas Hematocrit 37.6 % (37-47); Base Excess ABG 10.2 mmol/L (-2.0-2.0); Blood Gas Allen Test Pos; Blood Gas Operator Identificat JB; Blood Gas Sample Site Brachial, right; Blood Gas Sample Type Arterial; Blood Gas Tidal Volume 0.48; HCO3 ABG 35.3 mmol/L (22-26); Oxygen Device VENT; PO2 ABG 77.5 mmHg (80.0-100.0)
[2020-10-26 04:25] LABS: Basophils % 0.2 %; Hematocrit 24.9 % (37.0-47.0); Hemoglobin 7.4 g/dL (11.5-15.3); Lymphocytes # 0.4 10^3/uL (0.8-4.8); Lymphocytes % 2.5 %; Mean Corpuscular HGB Conc 29.7 g/dL (30.0-36.0); Mean Corpuscular Hemoglobin 29.8 pg (28.0-34.0); Mean Corpuscular Volume 100.4 fL (81-99); Monocytes # 0.5 10^3/uL (0.2-0.9); Monocytes % 3.1 %; Neutrophils # 15.61 10^3/uL (1.8-7.7); Neutrophils % 90.4 %; Nucleated Red Blood Cells # 0.1 /100WBC; Nucleated Red Blood Cells % 0.3 %; Platelet Count 318 10^3/cmm (130-400); Red Blood Count 2.48 10^6/uL (4.1-5.3); Red Cell Distribution Width 19.5 % (12.1-15.1); White Blood Count 17.3 10^3/uL (4.0-10.0)
[2020-10-26 04:37] LABS: INR 1.05 (0.8-1.2)
[2020-10-26 04:38] LABS: Partial Thromboplastin Time 26.8 SECONDS (23.9-36.7)
[2020-10-26 04:39] LABS: Alanine Aminotransferase 41 U/L (0-33); Albumin Level 2.1 g/dL (3.5-5.2); Alkaline Phosphatase 158 IU/L (35-105); Blood Urea Nitrogen 26 mg/dL (8-23); Calcium 8.2 mg/dL (8.5-10.5); Carbon Dioxide 32 mmol/L (22-29); Chloride 113 mmol/L (98-107); Creatine Phosphokinase 22 U/L (26-192); Fibrinogen 408 mg/dL (174-498); Globulin 3.1 g/dL (1.3-4.6); Glomerular Filtration Rate 71.5 mL/min (90-130); Glucose 124 mg/dL (65-115); Magnesium 1.9 mg/dL (1.7-2.3); Osmolality Calculated 318 mOsm/kg (285-295); Phosphorus 1.8 mg/dL (2.5-4.5); Sodium 151 mmol/L (136-145); Total Bilirubin 0.8 mg/dL (0.15-1.2); Total Protein 5.2 g/dL (6.6-8.7)
[2020-10-26 04:42] LABS: D Dimer 3.87 ug/mIFEU (0-0.59)
[2020-10-26 04:44] LABS: Anion Gap 9.9 (5-19); Aspartate Amino Transferase 28 U/L (0-32); Potassium 3.9 mmol/L (3.5-5.1)
[2020-10-26 05:51] LABS: Glucose Point of Care 146 mg/dL (70-110)
--- NOTE | 2020-10-26 08:26 | PC.SOCIAL ---
IMM Not Updated IMM Not Updated, patient intubated, not expected to discharge within the next 48hours.
[2020-10-26] MEDS: budesonide 0.5 mg/2 mL Neb INHALATION ×2 (08:27→21:20)
[2020-10-26] MEDS: dexmedetomidine 400 MCG in sodium chloride 0.9% (100 ml) 100 ML 11.1 MCG IV (08:43)
[2020-10-26] MEDS: vancomycin 1,000 MG in sodium chloride 0.9% 250 ML 250 MG IV (08:47)
[2020-10-26] MEDS: digoxin 125 mcg Tablet PO (08:47)
[2020-10-26] MEDS: sennosides-docusate Tablet 1 TAB PO (08:47)
[2020-10-26] MEDS: pantoprazole 40 mg SDV IVP ×2 (08:48→22:57)
[2020-10-26] MEDS: metoprolol tartrate 25 mg Tablet PO (08:53)
[2020-10-26 11:39] LABS: Glucose Point of Care 125 mg/dL (70-110)
[2020-10-26 11:46] LABS: Hemoglobin 7.3 g/dL (11.5-15.3)
[2020-10-26] MEDS: midazolam 1 mg/mL INJ 2 mL 2 MG IVP (12:20)
[2020-10-26] MEDS: lidocaine 1% INJ 20 mL XX (12:30)
--- NOTE | 2020-10-26 12:32 | PC.OT ---
OT NOTE: TREATMENT HELD TODAY DUE TO PATIENT INTUBATION.
--- NOTE | 2020-10-26 13:02 | PM.ACPR ---
Procedure/Consent Time out: Time Out Performed: Yes Consent: Consent for Procedure: Consent obtained from other (indicate) Procedure Narrative: Name of the procedure: Bronchoscopy with inspection of the airway, bronchoalveolar lavage and control of bleeding. Indication: Persistent pulmonary infiltrate Medication: Fentanyl 50 mcg, Versed 2 mg. The patient was on a fentanyl drip. Description of the procedure: Consent was obtained for the bronchoscopy procedure from her son. The patient was already intubated for acute hypoxic respiratory failure. 1% lidocaine 5 mL was introduced through the ET tube. The bronchoscope was as far advanced through the ET tube to the rafaela was visualized. There was erythema and airway secretion present throughout bilateral airways The airways were examined in a systematic manner. The bronchoscope was introduced in the right mainstem bronchus. The right upper lobe, right middle lobe and lower lobe bronchi were examined up to the third subsegmental level. No endobronchial lesions were identified. The bronchoscope was then introduced into the left mainstem bronchus. The left upper lobe, lingula and left lower lobe bronchi up to the third subsegmental level were then examined. There was pus noted in both lungs. This was considerably higher on the left side than the right. Bronchoalveolar lavage was performed from the left lower lobe. A total of 120 cc of fluid was administered, fluid return was 35 mL. The fluid was pus looking. There was no blood. Specimen was sent for Gram stain and culture, Fungal stain and culture and AFB stain and culture. Specimen was also sent for Aspergillus galactomannan and Fungitell assays. Complications: No immediate complication was noted. Acute Procedures Epistaxis Control: Time out performed: Yes
--- NOTE | 2020-10-26 13:06 | PM.PN ---
Subjective Subjective: Interval history: The patient was seen and examined. Over the weekend, the patient had developed worsening respiratory failure requiring intubation and mechanical ventilation. Her white count had also gone up after stopping antibiotic therapy. The patient is currently hemodynamically stable. She is actually arousable. Medications: Reviewed: Yes Vitals/I&O/Wt Last Vital Signs Temp 97.3 F L 10/26/20 07:00 Pulse 78 10/26/20 11:00 Resp 16 10/26/20 11:02 BP 125/59 10/26/20 11:00 Pulse Ox 96 10/26/20 11:02 10/25/20 10/26/20 10/26/20 22:59 06:59 14:59 Intake Total 2567.666 / 2913.999 605.667 / 3519.666 450 / 450 Output Total 675 / 675 275 / 950 550 / 550 Balance 1892.666 / 2238.999 330.667 / 2569.666 -100 / -100 Weight last 48 hrs Weight 134 lb 9.6 oz Weight 137 lb 12.8 oz Weight 136 lb 3.2 oz Physical Exam Narrative: EXAM NARRATIVE: General: The patient is intubated and sedated, arousable Neck: No JVD Respiratory: Auscultation: Diffuse crackles bilaterally, no wheezing or rhonchi Cardiovascular: Regular rate and rhythm, S1-S2 present, no peripheral edema. Abdomen: Soft, nondistended, positive bowel sound Skin: No rash Neuro: Patient is arousable, follows simple command Urinary Catheter Management^: Conn: Cath Placed During This Visit: yes Reason for Continuing Indwelling Catheter: Accurate Measurement of Urinary Output in Critically Ill Patients Urinary Catheter Date of Insertion: 10/11/20 Urinary Catheter Time of Insertion: 23:00 Data : 10/26/20 11:19 10/26/20 03:01 Micro: Microbiology 10/25/20 14:45 Gram Stain - Final Sputum - Endotracheal Tube Aspirate Sputum Culture - Preliminary Yeast species 10/24/20 19:19 Urine Culture - Preliminary Urine Catheterized Yeast species 10/20/20 08:26 Blood Culture - Final Blood Staphylococcus sp coag neg 10/20/20 08:21 Blood Culture - Final Blood NO GROWTH AFTER 5 DAYS 10/25/20 03:25 Blood Culture - Preliminary Blood NEGATIVE TO DATE 10/25/20 03:25 Blood Culture - Preliminary Blood NEGATIVE TO DATE Attestation for Other Data: I personally reviewed and interpreted the following: Other data: I have reviewed her laboratory, microbiologic and radiologic data. Her last blood culture from 413 was positive for coag negative staph likely contaminant. Endotracheal aspirate from 10/25 showed yeast. The patient had a CT scan of the chest yesterday which revealed previously documented emphysema both centrilobular and paraseptal. Interestingly, the interstitial opacity that was present on September 08 has lessened on the new CT scan. The patient has a cystic opacity in the left lower lobe however that is the area where the patient had ruptured diaphragm and underwent surgical intervention. There is no definitive evidence of necrosis there. Her hemoglobin had been slowly trending down. The patient is hyponatremic at 151. A&P Assessment and plan (1) Hypernatremia: The patient has a free water deficit of 2.2 L. I am going to start the patient on free water flush 400 cc every 6 hours which will give her 600 cc of fluid. I will discontinue the D5 drip. In addition, the patient will be started on enteral feeding and IV nutrition will be discontinued. 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 It appears that there has been radiologic improvement in the opacity when the CT scan from yesterday is compared to the CT scan obtained in early September. We will continue with the 40 mg of Solu-Medrol at this time Status: Acute (3) Pneumonia: The patient likely has hospital-acquired pneumonia at this point, the bronchoscopy revealed macrina pus on bronchoalveolar lavage. The patient's antibiotic was switched to imipenem, I will add linezolid for the time being till I have the Gram stain culture results available. In addition, the fluid was sent for fungal pathogens including Aspergillus galactomannan. 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 For the time being, the patient is broadly covered antibiotic and will await the bronchoscopy results. Status: Acute Qualifiers: Pneumonia type: due to unspecified organism Laterality: bilateral Lung location: unspecified part of lung Qualified Code(s): J18.9 - Pneumonia, unspecified organism (4) CHF (congestive heart failure): Since the patient was hospitalized, there has been a concern about whether the pulmonary infiltrate on the chest radiology secondary to the pulmonary edema. The patient has ischemic cardiomyopathy with an ejection fraction of 28%. I am going to perform a right heart catheterization today to definitively identify whether the patient is in decompensated heart failure. We will be able to optimize her diuretic regimen based on the actual numbers. Status: Acute Qualifiers: Heart failure chronicity: acute on chronic Heart failure type: diastolic Qualified Code(s): I50.33 - Acute on chronic diastolic (congestive) heart failure (5) Cardiac arrest: The patient is status post cardiac arrest and will likely have a guarded prognosis regardless of her future hospital course. Status: Resolved (6) Mitral valve replaced: Status: Acute (7) Atrial fibrillation: Currently the Lovenox is on hold. We will restart the Lovenox once the right heart catheterization is performed. 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
--- NOTE | 2020-10-26 13:53 | PM.PN ---
Subjective Subjective: Interval history: Patient was examined early in the morning, she is on maximum dose of fentanyl, remains a bit restless, pupils equal round reactive to light, she does follow some commands, no acute events overnight, remains normotensive, afebrile, on 30% FiO2 on the vent, continues to have good urine output, currently normal sinus rhythm Vitals/I&O/Wt Last Vital Signs Temp 97.3 F L 10/26/20 07:00 Pulse 78 10/26/20 11:00 Resp 16 10/26/20 13:45 BP 125/59 10/26/20 11:00 Pulse Ox 95 10/26/20 13:45 10/25/20 10/26/20 10/26/20 22:59 06:59 14:59 Intake Total 2567.666 / 2913.999 605.667 / 3519.666 550 / 550 Output Total 675 / 675 275 / 950 550 / 550 Balance 1892.666 / 2238.999 330.667 / 2569.666 0 / 0 Weight last 48 hrs Weight 61.054 kg Weight 62.505 kg Weight 61.779 kg Physical Exam Narrative: EXAM NARRATIVE: Intubated, remains restless on sedation Const: COMMON NORMALS: no acute distress ORIENTATION/CONSCIOUSNESS: Yes awake HENMT: COMMON NORMALS: normocephalic HEAD & SCALP: normocephalic Eye: COMMON NORMALS: Equal, round and reactive pupils present PUPIL: Yes Equal, round and reactive pupils present Neck/C-Spine: COMMON NORMALS: no JVD Chest: COMMONS NORMALS: normal inspection of the chest Resp: COMMON NORMALS: normal respiratory effort, No retractions, No use of accessory muscles and clear to auscultation bilaterally AUSCULTATION: clear to auscultation bilaterally Cardio: COMMON NORMALS: no JVD, regular rate, regular rhythm, S1 normal heart sound present, S2 normal heart sound present and No murmurs present (Cardio) RATE: regular rate RHYTHM: regular rhythm HEART SOUNDS: S1 normal heart sound present and S2 normal heart sound present GI: COMMON NORMALS: Soft to palpation, non-tender and No hepatosplenomegaly present INSPECTION: Yes normal to inspection AUSCULTATION: Yes Hypoactive bowel sounds present PALPATION: Yes Soft to palpation and Yes No hepatosplenomegaly present OTHER: Vertical abdominal incision scar Extremity: COMMON NORMALS: capillary refill normal, no clubbing, cyanosis or edema and no pedal edema Urinary Catheter Management^: Conn: Cath Placed During This Visit: yes Reason for Continuing Indwelling Catheter: Accurate Measurement of Urinary Output in Critically Ill Patients Urinary Catheter Date of Insertion: 10/11/20 Urinary Catheter Time of Insertion: 23:00 Data : 10/26/20 11:19 10/26/20 03:01 Micro: Microbiology 10/25/20 14:45 Gram Stain - Final Sputum - Endotracheal Tube Aspirate Sputum Culture - Preliminary Yeast species 10/24/20 19:19 Urine Culture - Preliminary Urine Catheterized Yeast species 10/20/20 08:26 Blood Culture - Final Blood Staphylococcus sp coag neg 10/20/20 08:21 Blood Culture - Final Blood NO GROWTH AFTER 5 DAYS 10/25/20 03:25 Blood Culture - Preliminary Blood NEGATIVE TO DATE 10/25/20 03:25 Blood Culture - Preliminary Blood NEGATIVE TO DATE A&P Assessment and plan (1) Acute respiratory failure with hypoxia: Remains intubated, mechanically ventilated, fentanyl and Precedex for sedation Daily weaning protocols, minimize PEEP to minimize FiO2 Present on admission Intubated on 10/12/2020 preceeding cardiac arrest, extubated 10/18/2020 Alternated between BiPAP and heated high flow oxygen 10/18-10/24 with FIO2 ranging from 40-70% Intubated on 10/24/2020 after progressively tiring out and developing acute respiratory failure with hypercapnia, hypoxia and respiratory acidosis There is concern for pulmonary abscess versus infarct on CT imaging of the chest performed yesterday, remains on broad-spectrum antibiotic therapy, did receive 1 dose of therapeutic Lovenox last night. On CT imaging of the chest patient was noted to have a left lower lobe cystic opacity, in the area that she had a ruptured diaphragm and underwent surgical intervention. No definite evidence of necrosis currently, or pulmonary infarct Plan on continuing broad-spectrum antibiotic therapy Primaxin, vancomycin changed to Zyvox, will consider adding antifungals for fungemia based on bronchoscopy cultures, or if fevers, or elevated leukocytosis As patient's hemoglobin has trended down to 7.4, will hold off on therapeutic Lovenox, monitor hemoglobin every 6 hours, resume therapeutic Lovenox after right heart cath tomorrow if hemoglobin remained stable We will consider diuresis based on right heart cath results Diuresed > 10L initially, remains negative > 7L for entire hospital stay Lasix last dose 10/24/19 40mg IV On broad-spectrum antibiotics since hospital admission 1 blood culture bottle with coag negative staph felt to be contaminant, remainder negative to date Sputum culture showed yeast, urine culture showed yeast, Endobronchial cultures were taken, follow cultures, will monitor for fungemia Negative covid PCR 10/11/20 Diffuse interstitial opacities Amiodarone toxicity suspected per discussions with pulmonology, has been stopped on prednisone 40 mg daily for pulmonary fibrosis Status post bronchoscopy 10/26/2020 Status: Acute (2) Hypernatremia: Secondary to volume depletion and diuresis Start enteral feeds Free water flushes increased to 400 cc every 6 hours Status: Acute (3) Pulmonary fibrosis: Discussed with pulmonolgy and concern is for interstitial pulmonary fibrosis possibly from amioadarone toxicity as findings were not present about a year ago. Had been started on amioadarone in the interim as I understand it from last CT images to current. Has not been able to have a biopsy. Steriods resumed 10/22 Status: Acute (4) Septic shock: Per discussion with pulmonology and review of notes, could be a mixture of cardiogenic and infection/septic shock, with the degree of organ involvement Status: Ruled-out (5) Cardiac arrest: 10/12/2020 approximately 15 minutes rescusitation with ROSC Status: Resolved (6) Pneumonia: Present on admission, organism unknown versus progressive pulmonary fibrosis and pulmonary edema. COVID was negative on 10/11 via rapid and PCR, Sputum cultures from yeast species, will monitor for fungemia Status: Acute Qualifiers: Pneumonia type: due to unspecified organism Laterality: bilateral Lung location: unspecified part of lung Qualified Code(s): J18.9 - Pneumonia, unspecified organism (7) Acute pyelonephritis: Noted on CT imaging, organism is unknown, urine culture showing yeast species, will monitor closely for fungemia Status: Acute (8) NSTEMI (non-ST elevated myocardial infarction): Type II process from cardiac arrest suspected but she also has a history of coronary artery disease. Peak troponin 112. Status: Acute (9) Multiorgan failure: Secondary to cardiogenic shock and cardiac arrest Status: Acute (10) Thickening of wall of gallbladder: Unclear current clinical significance Status: Acute (11) Transaminitis: And other LFT elevation from shock liver, near resolution Status: Acute (12) Steroid-induced gastritis: At the time of admission, had been on steroids for inflammatory and pulmonary reasons, on PPI Status: Acute (13) Supratherapeutic international normalized ratio (INR): Was chronically on coumadin prior to admission with INR 9, and possibly as high as 16 per information reported to me. Developed DIC with initial improvement in INR but after attempted anticoagualtion resumption, INR increased again, vitamin K replacement on 10/23/2020 with now normalized INR Status: Acute (14) DIC (disseminated intravascular coagulation): without gross bleeding; secondary to cardiac arrest and subsequent multiorgan failure, lab values trending towards improvement Status: Acute (15) Lactic acidosis: Looks like this occurred around the time of the cardiac arrest. Could be secondary hypoxemia rather than indicative of septic shock. Status: Resolved (16) Hypoxic brain injury: Suspected status post cardiac arrest with 15 minutes ACLS on 10/12. Was following simple commands, responding to questions, wanting to eat, asking for things she wanted, but remained restless at times, anxious prior to reintubation, weak but motor strength equal bilaterally, has not been up out of bed Now has been reintubated, on fentanyl and Precedex Status: Acute (17) Hx of mitral valve repair: Some records indicate history of mitral valve replacement, has not been clarified but no mechanical clicks noted on examination Status: Inactive (18) COPD (chronic obstructive pulmonary disease): Longstanding, severe Status: Chronic Qualifiers: COPD type: unspecified COPD Qualified Code(s): J44.9 - Chronic obstructive pulmonary disease, unspecified (19) Atrial flutter: Chronic. Has been treated with amiodarone, Cardizem. Follows with Dr. Rizo outpatient. On Coumadin prior to admission. Will NOT resume amiodarone due to suspected pulmonary toxicity. TSH 09/09/20 was 3.73. Most recent recommendations based on EF and rate is digoxin and metoprolol. Dig level just above therapeutic range 10/25 so doing changed to every other day. 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 Coker at the time of admission Status: Acute (23) Opacity of lung on imaging study: There is concern for pulmonary abscess versus infarct on CT imaging of the chest performed yesterday, remains on broad-spectrum antibiotic therapy, did receive 1 dose of therapeutic Lovenox last night. On CT imaging of the chest patient was noted to have a left lower lobe cystic opacity, in the area that she had a ruptured diaphragm and underwent surgical intervention. No definite evidence of necrosis currently, or pulmonary infarct Plan on continuing broad-spectrum antibiotic therapy Primaxin, vancomycin changed to Zyvox, will consider adding antifungals for fungemia based on bronchoscopy cultures, or if fevers, or elevated leukocytosis As patient's hemoglobin has trended down to 7.4, will hold off on therapeutic Lovenox, monitor hemoglobin every 6 hours, resume therapeutic Lovenox after right heart cath tomorrow if hemoglobin remained stable We will consider diuresis based on right heart cath results Status: Acute Additional A&P Information Discolored toes on right foot the same, arterial and venous US of legs have been done and were unrevealing History of surgery to repair ruptured diaphragm this year in August Nutrition following Insulin every 6 hours if needed CVL removed 10/23, PICC line placed 10/23 Conn due to critical care patient on intermittent diuresis and close UOP monitoring; UA 10/24 negative LE and nitrates Stool softeners If diarrhea, check stool for c diff SCDs for DVT prophylaxis, Lovenox on hold due to worsening anemia Had venous and arterial dopplers of legs 10/23 On IV PPI Referral [facility] await response from review Supportive care otherwise Full code Attestations Medical Necessity Statement*: Patient requires hospitalization for acute respiratory failure, requiring ICU admission, critical care time over 50 minutes Plan for today monitor for fevers, monitor hemodynamics, if any concerns will start her on fungal coverage, started on increased free water flushes for hypernatremia, sedation increased to fentanyl and Precedex, will have right heart cath tomorrow Coding Level of Care Code Acute 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 [employer] Diagnoses Acute respiratory failure with hypoxia J96.01 Hypernatremia E87.0 Pulmonary fibrosis J84.10 Septic shock A41.9; R65.21 Cardiac arrest I46.9 Pneumonia J18.9 Pneumonia type: due to unspecified organism Laterality: bilateral Lung location: unspecified part of lung Acute pyelonephritis N10 NSTEMI (non-ST elevated myocardial infarction) I21.4 Multiorgan failure Thickening of wall of gallbladder K82.8 Transaminitis R74.01 Steroid-induced gastritis K29.60; T38.0X5A Supratherapeutic international normalized ratio (INR) R79.1 DIC (disseminated intravascular coagulation) D65 Lactic acidosis E87.2 Hypoxic brain injury G93.1 Hx of mitral valve repair Z98.890 COPD (chronic obstructive pulmonary disease) J44.9 COPD type: unspecified COPD Atrial flutter I48.92 Atrial flutter type: unspecified 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
[2020-10-26] MEDS: phosphorus 250 mg Tablet 500 MG PO (14:44)
[2020-10-26] MEDS: linezolid premix 600 MG/300 ML PREMIX 300 MG IV (14:45)
[2020-10-26 15:42] LABS: Osmolality Urine 451 mOsm/kg (50-1200)
[2020-10-26] MEDS: midazolam 1 mg/mL INJ 5 ML 5 MG IV (17:51)
--- NOTE | 2020-10-26 18:42 | PM.ACPR ---
Procedure/Consent Time out: Time Out Performed: Yes Consent: Consent for Procedure: Consent obtained from other (indicate) Procedure Narrative: Name of the procedure: Calipatria-Joe catheterization through internal jugular vein under ultrasound guidance. Indication: Persistent chest infiltrate in in a patient with ischemic cardiomyopathy with an ejection fraction of 28% and recent cardiac arrest. Anesthesia: The patient is on intravenous fentanyl and Precedex, 2 mg of IV Versed push. 1% lidocaine locally injected 8 mL. Description of the procedure: The procedure was described and consent was obtained from her son. The patient was positioned optimally. The site was prepared using sterile technique. The right internal jugular vein was identified under ultrasound guidance from collapsibility and lack of pulsatility. The skin and subcutaneous tissue was anesthetized with 1% lidocaine. The introducer needle was then introduced to flashback was noted. Dark nonpulsatile blood was noted. Using Seldinger technique the Cordis was introduced. The Calipatria-Joe catheter was then introduced through the Cordis. The balloon was inflated after 15 cm of the Cordis was introduced through the introducer. The catheter was then advanced under pressure dressing. The catheter was passed through the right ventricle, pulmonary artery and wedged without any difficulty. Pulmonary capillary wedge pressure 11 mmHg Pulmonary artery pressure 43/14, mean pulmonary arterial pressure 24 mmHg Right ventricular pressure 43/2 mmHg CVP 6 mmHg The cardiac output was not measured. The catheter was removed at the end of the procedure. Complications: None. Acute Procedures Epistaxis Control: Time out performed: Yes
--- NOTE | 2020-10-26 18:45 | XRR_ITS ---
PROCEDURE INFORMATION: Exam: XR Chest Exam date and time: 10/26/2020 6:49 PM Age: 65 years old Clinical indication: Device placement; Other: Og placement TECHNIQUE: Imaging protocol: XR of the chest. Views: Frontal portable supine view of the chest. COMPARISON: CT chest w con* [id number] 10/25/2020 4:33 PM FINDINGS: Tubes, catheters and devices: The endotracheal tube tip is approximately 3.5 cm above the rafaela. The patient is status post median sternotomy with intact sternal cerclage wires. The right upper extremity PICC line tip is in the upper SVC. The feeding tube tip is in the lower thoracic esophagus, approximately 3.5 cm above the gastroesophageal junction. EKG leads are present overlying the chest. Lungs: Stable left basilar partial atelectasis. Coarse bilateral central pulmonary markings with moderate architectural distortion. The pulmonary vasculature is stable. Pleural spaces: Stable small left pleural effusion. Small right pleural effusion, new. No pneumothorax. Heart/Mediastinum: Mediastinum: Stable. Stable mild cardiomegaly. Bones/joints: Stable. XR/XR chest 1V portable [id number] IMPRESSION: 1. The feeding tube tip is in the lower thoracic esophagus. Recommend advancement. 2. Stable small left pleural effusion. 3. Stable left basilar partial atelectasis. Superimposed pneumonitis is difficult to exclude. Clinical correlation is recommended. 4. Small right pleural effusion, new. 5. Chronic lung disease, stable.
[2020-10-26 19:12] LABS: Hematocrit 23.9 % (37.0-47.0); Hemoglobin 7.2 g/dL (11.5-15.3)
--- NOTE | 2020-10-26 19:39 | P.PN_ITS ---
Subjective Subjective: Interval history: Patient remained in sinus rhythm. Medications: Medication Review Details: Patient remains short of breath tachypneic and tachycardic. Blood pressure is also elevated. Vitals/I&O/Wt Last Vital Signs Temp 97.3 F L 10/26/20 07:00 Pulse 69 10/26/20 18:00 Resp 16 10/26/20 18:28 BP 139/60 10/26/20 18:00 Pulse Ox 100 10/26/20 18:28 10/26/20 10/26/20 10/26/20 06:59 14:59 22:59 Intake Total 605.667 / 3519.666 550 / 550 1300 / 1850 Output Total 275 / 950 550 / 550 1000 / 1550 Balance 330.667 / 2569.666 0 / 0 300 / 300 Weight last 48 hrs Weight 134 lb 9.6 oz Weight 137 lb 12.8 oz Weight 136 lb 3.2 oz Physical Exam Narrative: EXAM NARRATIVE: GENERAL: Patient is sedated on vent NECK: No jugular vein distension. HEENT: No cyanosis. No icterus. No pallor. HEART: Regular S1 and S2. No murmur LUNGS: Decreased breath sound with scattered crackles bilaterally. ABDOMEN: Not examined CENTRAL NERVOUS SYSTEM: Grossly nonfocal. EXTREMITIES: Lower extremities without edema bilaterally. Urinary Catheter Management^: Conn: Cath Placed During This Visit: yes Reason for Continuing Indwelling Catheter: Accurate Measurement of Urinary Output in Critically Ill Patients Urinary Catheter Date of Insertion: 10/11/20 Urinary Catheter Time of Insertion: 23:00 Data : 10/26/20 19:00 10/26/20 03:01 Micro: Microbiology 10/26/20 12:35 Gram Stain - Final Lung Left Lower Lobe 10/25/20 14:45 Gram Stain - Final Sputum - Endotracheal Tube Aspirate Sputum Culture - Preliminary Yeast species 10/24/20 19:19 Urine Culture - Preliminary Urine Catheterized Yeast species 10/20/20 08:26 Blood Culture - Final Blood Staphylococcus sp coag neg 10/20/20 08:21 Blood Culture - Final Blood NO GROWTH AFTER 5 DAYS 10/25/20 03:25 Blood Culture - Preliminary Blood NEGATIVE TO DATE 10/25/20 03:25 Blood Culture - Preliminary Blood NEGATIVE TO DATE A&P Assessment and plan (1) Acute respiratory failure with hypoxia: Status: Acute (2) Cardiac arrest: Status: Resolved (3) Multiorgan failure: Status: Acute (4) Atrial flutter: Status: Chronic Qualifiers: Atrial flutter type: unspecified Qualified Code(s): I48.92 - Unspecified atrial flutter (5) CHF (congestive heart failure): Status: Acute Qualifiers: Heart failure chronicity: acute on chronic Heart failure type: diastolic Qualified Code(s): I50.33 - Acute on chronic diastolic (congestive) heart failure (6) Septic shock: Status: Ruled-out (7) DIC (disseminated intravascular coagulation): Status: Acute Appear to be stable from a atrial fibrillation perspective patient is in sinus rhythm continue current regimen beta-simran and digoxin. Appeared to be euvolemic and hypernatremic. Continue holding diuretics. Attestations Medical Necessity Statement*: Patient require continuation hospitalization for above defined care. 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
[2020-10-26 20:14] LABS: Glucose Point of Care 174 mg/dL (70-110)
--- NOTE | 2020-10-26 21:10 | PC.NURSE ---
OG report for verfication of correct placement not resulted in pt's chart. RN called PM shift hospitalist on shift, to update him on situation. MD gave t/o to hold tube feedings, and any PO med admins until report populates. Tube feedings and PO metoprolol held.
[2020-10-26 22:26] LABS: Anion Gap 7.7 (5-19); Blood Urea Nitrogen 21 mg/dL (8-23); Calcium 8.4 mg/dL (8.5-10.5); Carbon Dioxide 32 mmol/L (22-29); Chloride 110 mmol/L (98-107); Glomerular Filtration Rate 83.5 mL/min (90-130); Glucose 137 mg/dL (65-115); Osmolality Calculated 307 mOsm/kg (285-295); Potassium 3.7 mmol/L (3.5-5.1); Sodium 146 mmol/L (136-145)
[2020-10-26] MEDS: dextrose 5% 1,000 ML 50 ML IV (23:00)
[2020-10-27] VITALS (119 sets, daily range): BP systolic 95–169; BP diastolic 48–82; PULSE 56–85; RESP 12–19; TEMP 36.6–37.1; O2SAT 89–100
[2020-10-27] MEDS: dexmedetomidine 400 MCG in sodium chloride 0.9% (100 ml) 100 ML IV (00:01)
[2020-10-27 00:18] LABS: Glucose Point of Care 118 mg/dL (70-110)
[2020-10-27 00:45] LABS: Hemoglobin 7.2 g/dL (11.5-15.3)
[2020-10-27] MEDS: ipratropium-albuterol 3 mL Neb INHALATION ×4 (02:09→20:22)
[2020-10-27] MEDS: linezolid premix 600 MG/300 ML PREMIX 300 MG IV ×2 (02:41→15:20)
[2020-10-27 04:04] LABS: Basophils % 0.2 %; Hematocrit 22.7 % (37.0-47.0); Hemoglobin 6.8 g/dL (11.5-15.3); Lymphocytes # 0.5 10^3/uL (0.8-4.8); Lymphocytes % 3.6 %; Mean Platelet Volume 13.7 fL (7.4-10.4); Monocytes # 0.5 10^3/uL (0.2-0.9); Monocytes % 4.2 %; Neutrophils # 10.92 10^3/uL (1.8-7.7); Neutrophils % 85.9 %; Nucleated Red Blood Cells # 0.1 /100WBC; Nucleated Red Blood Cells % 0.7 %; Platelet Count 251 10^3/cmm (130-400); Red Blood Count 2.27 10^6/uL (4.1-5.3); Red Cell Distribution Width 18.9 % (12.1-15.1); White Blood Count 12.7 10^3/uL (4.0-10.0)
[2020-10-27 04:42] LABS: INR 1.08 (0.8-1.2); Partial Thromboplastin Time 28.7 SECONDS (23.9-36.7)
[2020-10-27 04:43] LABS: Fibrinogen 383 mg/dL (174-498)
[2020-10-27 04:49] LABS: Digoxin 0.9 ng/mL (0.6-1.2)
[2020-10-27 04:51] LABS: Alanine Aminotransferase 31 U/L (0-33); Albumin Level 2.1 g/dL (3.5-5.2); Alkaline Phosphatase 127 IU/L (35-105); Anion Gap 7.2 (5-19); Aspartate Amino Transferase 21 U/L (0-32); Blood Urea Nitrogen 21 mg/dL (8-23); C Reactive Protein 72.7 mg/L (0.0-4.9); Calcium 8.1 mg/dL (8.5-10.5); Carbon Dioxide 31 mmol/L (22-29); Chloride 109 mmol/L (98-107); Globulin 2.8 g/dL (1.3-4.6); Glomerular Filtration Rate 83.5 mL/min (90-130); Glucose 166 mg/dL (65-115); Magnesium 1.8 mg/dL (1.7-2.3); Osmolality Calculated 305 mOsm/kg (285-295); Potassium 3.2 mmol/L (3.5-5.1); Sodium 144 mmol/L (136-145); Total Bilirubin 0.8 mg/dL (0.15-1.2); Total Protein 4.9 g/dL (6.6-8.7)
[2020-10-27 04:52] LABS: D Dimer 7.68 ug/mIFEU (0-0.59)
[2020-10-27 04:59] LABS: Slide Review Slide Review Perform
[2020-10-27 05:00] LABS: NT Pro B Type Natriuretic Pept 5519 pg/mL (0-125); Procalcitonin 0.14 ng/mL (0-0.5)
[2020-10-27 06:18] LABS: Glucose Point of Care 125 mg/dL (70-110)
--- NOTE | 2020-10-27 07:00 | XRR_ITS ---
PROCEDURE INFORMATION: Exam: XR Chest Exam date and time: 10/27/2020 3:35 AM Age: 65 years old Clinical indication: Shortness of breath; Additional info: SOB TECHNIQUE: Imaging protocol: XR of the chest. Views: Frontal portable supine view of the chest. COMPARISON: CR XR chest 1V portable [id number] 10/26/2020 6:55 PM FINDINGS: Tubes, catheters and devices: The patient is status post median sternotomy with intact sternal cerclage wires. A mitral valve prosthesis is present. The right upper extremity PICC line tip is in the cavoatrial junction. The endotracheal tube tip is approximately 15 mm above the rafaela. The feeding tube tip is approximately 3 cm above the gastroesophageal junction. EKG leads are present overlying the chest. Lungs: Interval mild increase in heterogeneous air space opacities in the bilateral lung bases. Otherwise stable mild heterogeneous air space opacities in the bilateral lungs. The pulmonary vasculature remains congested. Pleural spaces: Stable small bilateral pleural effusions. No pneumothorax. Heart/Mediastinum: Stable mild cardiomegaly. Vasculature: Moderate aortic arch atherosclerotic calcification without ectasia. Bones/joints: Stable. XR/XR chest 1V portable [id number] IMPRESSION: 1. Increased bibasilar pulmonary infiltrates/atypical pulmonary edema. 2. Otherwise stable bilateral pulmonary infiltrates. 3. Persistent pulmonary vascular congestion. 4. The feeding tube tip is above the gastroesophageal junction. Recommend advancement. 5. Stable small bilateral pleural effusions.
[2020-10-27 07:37] LABS: Hemoglobin 6.8 g/dL (11.5-15.3)
[2020-10-27] MEDS: budesonide 0.5 mg/2 mL Neb INHALATION ×2 (07:52→20:22)
[2020-10-27] MEDS: lidocaine 1% 5 ML in potassium chloride premix 100 ML 25 ML IV (08:26)
--- NOTE | 2020-10-27 09:31 | XRR_ITS ---
PROCEDURE INFORMATION: Exam: XR Chest Exam date and time: 10/27/2020 9:53 AM Age: 65 years old Clinical indication: Device placement; Other: Og tube placement TECHNIQUE: Imaging protocol: XR of the chest. Views: Frontal portable upright view of the chest. COMPARISON: CR XR chest 1V portable [id number] 10/27/2020 4:24 AM FINDINGS: Tubes, catheters and devices: The endotracheal tube tip is approximately 13 mm above the rafaela. The patient is status post median sternotomy with intact sternal cerclage wires. A mitral valve prosthesis is present. EKG leads are present overlying the chest. The nasogastric tube enters the stomach with the tip in the upper gastric body. The side-port at the GE junction. Lungs: The patient's chin obscures a portion of the left lung apex. Improved left lower lobe partial atelectasis. The pulmonary vasculature is stable. Coarse bilateral central pulmonary markings with moderate architectural distortion. Pleural spaces: Stable small bilateral pleural effusions. No pneumothorax. Heart/Mediastinum: The heart is normal in size and contour. Mediastinum: Stable. Vasculature: Moderate abdominal aortic atherosclerotic calcification without aneurysm. Bones/joints: Stable. XR/XR chest 1V portable [id number] IMPRESSION: 1. Improved left lower lobe partial atelectasis. 2. Stable small bilateral pleural effusions. 3. Chronic lung disease. 4. The nasogastric tube side-port is at the GE junction. Recommend advancement.
--- NOTE | 2020-10-27 09:53 | PC.CHAP ---
Pastoral Care Encounter/Spiritual Assessment Type of Contact [] Declined data capture clerk visit [] Patient/Family/Request visit [] Outpatient visit [] Follow-up visit [] Physician referral [] Code/Alert [x] Routine visit [] Staff referral [] Actively dying [] Patient sleeping [] Family support [] [] Out of room [] Palliative care [] [] Receiving care in room [] Pre-surgical visit [] Trauma [] Long length of stay [x] ICU visit [x] Other: patient still on ventilator Relational/Emotional Strength [] Patient feels connected with others/family/visitors/staff [] Distress [] Loneliness/isolation [] Abandonment Spirituality of Patient [] Person of Dawna [] Attends [employer] of their Dawna [] Believes in Prayer [] Reads Bible or Quaker materials [] There are Spiritual issues to be addressed Butter Liquefier Interventions [x] Prayer [] Active listening [] Non-anxious presence [] Spiritual/emotional support [] Crisis/trauma care [] Spiritual counseling [] Bereavement support [] Provided bereavement packet [] Provided Bible/devotional materials [] Provided toy/stuffed animal, coloring book to patient or family member [] Provided Communion [] Anointing/[place] [] Salvation [x] Completed spiritual assessment [] Other: Impact on Illness or Injury [] Angry [] Fearful [] Anxious [] Often cries [] Exhaustion [] Unable to work [] Unable to attend sikh [] Unable to walk/stand [] Unable to read [] Unable to drive [] Unable to eat/drink [] Unable to sleep [] Unable to be with family [] Patient intubated [] Other: Summary Time spent with patient
--- NOTE | 2020-10-27 10:28 | PC.NURSE ---
Fentanyl still running. Will scan new bag when needed
[2020-10-27] MEDS: pantoprazole 40 mg SDV IVP ×2 (10:48→21:13)
[2020-10-27] MEDS: metoprolol tartrate 25 mg Tablet PO ×2 (10:48→21:13)
[2020-10-27] MEDS: sucralfate 1 gm Tablet PO ×3 (10:48→21:13)
[2020-10-27] MEDS: sennosides-docusate Tablet 1 TAB PO ×2 (10:48→18:13)
[2020-10-27] MEDS: sodium chloride 0.9% (100 ml) 100 ML 50 ML (10:49)
--- NOTE | 2020-10-27 11:07 | PC.NURSE ---
11 AM medication not given because morning dose was given late
--- NOTE | 2020-10-27 11:50 | PC.OT ---
PER DISCUSSION WITH LAM AND REVIEW OF NOTES, CONTINUE SKILLED OT PER POC. PATIENT TO PARTICIPATE ABLE.
[2020-10-27 12:05] LABS: Glucose Point of Care 117 mg/dL (70-110)
--- NOTE | 2020-10-27 12:55 | PM.PN ---
Subjective Subjective: Interval history: Patient was examined this morning, she is all Precedex and fentanyl for sedation, she follows commands on sedation, she is able to squeeze my fingers, nod her head, she is on minimal FiO2, 28%, afebrile overnight, continues to have good urine output, normotensive, heart rates in the 60s, normal sinus rhythm, patient underwent a bronchoscopy and right heart cath by Dr. Mcrae yesterday, overnight she did dislodge her orogastric tube Vitals/I&O/Wt Last Vital Signs Temp 98.6 F 10/27/20 12:50 Pulse 62 10/27/20 12:50 Resp 16 10/27/20 12:50 BP 142/63 10/27/20 12:50 Pulse Ox 99 10/27/20 12:41 10/26/20 10/27/20 10/27/20 22:59 06:59 14:59 Intake Total 1757.833 / 2307.833 169.433 / 2477.266 460 / 460 Output Total 1100 / 1650 450 / 2100 Balance 657.833 / 657.833 -280.567 / 377.266 460 / 460 Weight last 48 hrs Weight 61.041 kg Weight 61.054 kg Weight 62.505 kg Physical Exam Const: COMMON NORMALS: no acute distress GENERAL APPEARANCE: cooperative ORIENTATION/CONSCIOUSNESS: Yes awake OTHER: Currently intubated, on sedation, but follows commands HENMT: COMMON NORMALS: normocephalic HEAD & SCALP: normocephalic Eye: COMMON NORMALS: Equal, round and reactive pupils present PUPIL: Yes Equal, round and reactive pupils present OTHER: Pupils equal round reactive to light Neck/C-Spine: COMMON NORMALS: no lymphadenopathy and no JVD Lymph: LYMPHATIC: no lymphadenopathy noted Chest: COMMONS NORMALS: normal inspection of the chest Resp: COMMON NORMALS: normal respiratory effort, No retractions, No use of accessory muscles and clear to auscultation bilaterally AUSCULTATION: clear to auscultation bilaterally, rhonchi and wheezes Cardio: COMMON NORMALS: no JVD, regular rate, regular rhythm, S1 normal heart sound present, S2 normal heart sound present and No murmurs present (Cardio) RATE: regular rate and tachycardic RHYTHM: regular rhythm and abnormal rhythm HEART SOUNDS: S1 normal heart sound present, S2 normal heart sound present and no murmurs GI: COMMON NORMALS: Soft to palpation, non-tender, No hepatosplenomegaly present, no masses and no bruits INSPECTION: Yes normal to inspection AUSCULTATION: Yes Hypoactive bowel sounds present PALPATION: Yes Soft to palpation and Yes No hepatosplenomegaly present OTHER: Vertical abdominal incision scar Extremity: COMMON NORMALS: capillary refill normal, no clubbing, cyanosis or edema, no calf tenderness and no pedal edema Neuro: OTHER: Follows commands on the ventilator Urinary Catheter Management^: Conn: Cath Placed During This Visit: yes Reason for Continuing Indwelling Catheter: Accurate Measurement of Urinary Output in Critically Ill Patients Urinary Catheter Date of Insertion: 10/11/20 Urinary Catheter Time of Insertion: 23:00 Data : 10/27/20 07:25 10/27/20 03:49 Micro: Microbiology 10/26/20 12:35 Gram Stain - Final Lung Left Lower Lobe Bronchoalveolar Lavage Culture - Preliminary Yeast species 10/25/20 14:45 Gram Stain - Final Sputum - Endotracheal Tube Aspirate Sputum Culture - Preliminary Yeast species Gram Negative Rods 10/24/20 19:19 Urine Culture - Preliminary Urine Catheterized Yeast species A&P Assessment and plan (1) Acute respiratory failure with hypoxia: Remains intubated, mechanically ventilated, fentanyl and Precedex for sedation Daily weaning protocols, minimize PEEP to minimize FiO2 Intubated on 10/12/2020 preceeding cardiac arrest, extubated 10/18/2020 Alternated between BiPAP and heated high flow oxygen 10/18-10/24 with FIO2 ranging from 40-70% Intubated on 10/24/2020 after progressively tiring out and developing acute respiratory failure with hypercapnia, hypoxia and respiratory acidosis There is concern for pulmonary abscess versus infarct on CT imaging of the chest performed on Monday, remains on broad-spectrum antibiotic therapy, On CT imaging of the chest patient was noted to have a left lower lobe cystic opacity, in the area that she had a ruptured diaphragm and underwent surgical intervention. No definite evidence of necrosis currently, or pulmonary infarct Plan on continuing broad-spectrum antibiotic therapy Primaxin, vancomycin changed to Zyvox, will consider adding antifungals for fungemia based on bronchoscopy cultures, or if fevers, or elevated leukocytosis As patient's hemoglobin has trended down to 6.8, will hold off on therapeutic Lovenox, monitor hemoglobin every 6 hours, will transfuse 1 unit PRBC Status post bronchoscopy yesterday, bronchial lavage, cultures pending Status post right heart cath pulmonary capillary wedge pressure was 11 Serum sodium improved to 144 with free water flushes, however patient removed orogastric tube overnight Remains -4.7 L since hospitalization Lasix last dose 10/24/19 40mg IV On broad-spectrum antibiotics since hospital admission 1 blood culture bottle with coag negative staph felt to be contaminant, remainder negative to date Sputum culture showed yeast, urine culture showed yeast, Bronchiolar lavage cultures, follow cultures, will monitor for fungemia Negative covid PCR 10/11/20 Amiodarone toxicity suspected per discussions with pulmonology, has been stopped on prednisone 40 mg daily for pulmonary fibrosis Plan for today, replace orogastric tubes, resume tube feeds, resume free water flushes at 200 cc every 12 hours, monitor serum sodium, monitor respiratory status, continue broad-spectrum antibiotic therapy, plan on extubation hopefully in the next 24 to 48 hours Status: Acute (2) Hypernatremia: Secondary to volume depletion and diuresis Start enteral feeds Free water flushes increased to 400 cc every 6 hours Status: Acute (3) Pulmonary fibrosis: Discussed with pulmonolgy and concern is for interstitial pulmonary fibrosis possibly from amioadarone toxicity as findings were not present about a year ago. Had been started on amioadarone in the interim as I understand it from last CT images to current. Has not been able to have a biopsy. Steriods resumed 10/22 Status: Acute (4) Septic shock: Per discussion with pulmonology and review of notes, could be a mixture of cardiogenic and infection/septic shock, with the degree of organ involvement Status: Ruled-out (5) Cardiac arrest: 10/12/2020 approximately 15 minutes rescusitation with ROSC Status: Resolved (6) Pneumonia: Present on admission, organism unknown versus progressive pulmonary fibrosis and pulmonary edema. COVID was negative on 10/11 via rapid and PCR, Sputum cultures from yeast species, will monitor for fungemia Status: Acute Qualifiers: Pneumonia type: due to unspecified organism Laterality: bilateral Lung location: unspecified part of lung Qualified Code(s): J18.9 - Pneumonia, unspecified organism (7) Acute pyelonephritis: Noted on CT imaging, organism is unknown, urine culture showing yeast species, will monitor closely for fungemia Status: Acute (8) NSTEMI (non-ST elevated myocardial infarction): Type II process from cardiac arrest suspected but she also has a history of coronary artery disease. Peak troponin 112. Status: Acute (9) Multiorgan failure: Secondary to cardiogenic shock and cardiac arrest Status: Acute (10) Thickening of wall of gallbladder: Unclear current clinical significance Status: Acute (11) Transaminitis: And other LFT elevation from shock liver, near resolution Status: Acute (12) Steroid-induced gastritis: At the time of admission, had been on steroids for inflammatory and pulmonary reasons, on PPI Status: Acute (13) Supratherapeutic international normalized ratio (INR): Was chronically on coumadin prior to admission with INR 9, and possibly as high as 16 per information reported to me. Developed DIC with initial improvement in INR but after attempted anticoagualtion resumption, INR increased again, vitamin K replacement on 10/23/2020 with now normalized INR Status: Acute (14) DIC (disseminated intravascular coagulation): without gross bleeding; secondary to cardiac arrest and subsequent multiorgan failure, lab values trending towards improvement Status: Acute (15) Lactic acidosis: Looks like this occurred around the time of the cardiac arrest. Could be secondary hypoxemia rather than indicative of septic shock. Status: Resolved (16) Hypoxic brain injury: Follows commands Suspected status post cardiac arrest with 15 minutes ACLS on 10/12. Was following simple commands, responding to questions, wanting to eat, asking for things she wanted, but remained restless at times, anxious prior to reintubation, weak but motor strength equal bilaterally, has not been up out of bed Now has been reintubated, on fentanyl and Precedex Status: Acute (17) Hx of mitral valve repair: Some records indicate history of mitral valve replacement, has not been clarified but no mechanical clicks noted on examination Status: Inactive (18) COPD (chronic obstructive pulmonary disease): Longstanding, severe Status: Chronic Qualifiers: COPD type: unspecified COPD Qualified Code(s): J44.9 - Chronic obstructive pulmonary disease, unspecified (19) Atrial flutter: Chronic. Has been treated with amiodarone, Cardizem. Follows with Dr. Rizo outpatient. On Coumadin prior to admission. Will NOT resume amiodarone due to suspected pulmonary toxicity. TSH 09/09/20 was 3.73. Most recent recommendations based on EF and rate is digoxin and metoprolol. Dig level just above therapeutic range 10/25 so doing changed to every other day. 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 Coker at the time of admission Status: Acute (23) Opacity of lung on imaging study: There is concern for pulmonary abscess versus infarct on CT imaging of the chest performed yesterday, remains on broad-spectrum antibiotic therapy, did receive 1 dose of therapeutic Lovenox last night. On CT imaging of the chest patient was noted to have a left lower lobe cystic opacity, in the area that she had a ruptured diaphragm and underwent surgical intervention. No definite evidence of necrosis currently, or pulmonary infarct Plan on continuing broad-spectrum antibiotic therapy Primaxin, Zyvox, will consider adding antifungals for fungemia based on bronchoscopy cultures, or if fevers, or elevated leukocytosis As patient's hemoglobin has trended down to 6.8, will hold off on therapeutic Lovenox, monitor hemoglobin every 6 hours, will transfuse 1 unit PRBC Status: Acute Additional A&P Information Discolored toes on right foot the same, arterial and venous US of legs have been done and were unrevealing History of surgery to repair ruptured diaphragm this year in August Nutrition following Insulin every 6 hours if needed CVL removed 10/23, PICC line placed 10/23 Conn due to critical care patient on intermittent diuresis and close UOP monitoring Stool softeners If diarrhea, check stool for c diff SCDs for DVT prophylaxis, Lovenox on hold due to worsening anemia Had venous and arterial dopplers of legs 10/23 On IV PPI Referral has been sent to [facility] long term care acute care await response from review Supportive care otherwise Full code Attestations Medical Necessity Statement*: Patient requires hospitalization, ICU, for acute on chronic hypoxic respiratory failure, hypernatremia, pulmonary fibrosis, critical care time spent over 50 minutes Coding Level of Care 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 Diagnoses Acute respiratory failure with hypoxia J96.01 Hypernatremia E87.0 Pulmonary fibrosis J84.10 Septic shock A41.9; R65.21 Cardiac arrest I46.9 Pneumonia J18.9 Pneumonia type: due to unspecified organism Laterality: bilateral Lung location: unspecified part of lung Acute pyelonephritis N10 NSTEMI (non-ST elevated myocardial infarction) I21.4 Multiorgan failure Thickening of wall of gallbladder K82.8 Transaminitis R74.01 Steroid-induced gastritis K29.60; T38.0X5A Supratherapeutic international normalized ratio (INR) R79.1 DIC (disseminated intravascular coagulation) D65 Lactic acidosis E87.2 Hypoxic brain injury G93.1 Hx of mitral valve repair Z98.890 COPD (chronic obstructive pulmonary disease) J44.9 COPD type: unspecified COPD Atrial flutter I48.92 Atrial flutter type: unspecified 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
--- NOTE | 2020-10-27 13:30 | PC.NUTR ---
Nutrition reassessment complete. Noted TF goal rate not acheived X 3 days. Recommend continue to advance TF 10 ml/hr per order to reach goal rate of [facility] 30 ml/hr, with 300 ml H2O flushes q4 hours, providing 1080 kcal, 45 g PRO, and 2365 ml fluid. If well tolerated, recommend consider incease to 35 ml to better meet estimated needs. (35 ml/hr would provide 1260 kcal and 53 g protein). NS at 30 ml/hr noted. Recommend monitor and adjust fluid provision as TF and flushes increase.[ End ]
--- NOTE | 2020-10-27 14:41 | P.PN_ITS ---
Subjective Subjective: Interval history: The patient seems to be doing well. She is hemodynamically stable. On minimal ventilator support. She was able to open her eyes and follow simple commands. The patient is receiving a unit of PRBC for trending hemoglobin below 7. Her chest x-ray revealed persistent bilateral infiltrate. Her wedge pressure yesterday on right heart catheterization was 11 mmHg. Her white count has been trending down. Currently the patient is on linezolid and imipenem. The patient is requiring minimal amount of oxygen. Medications: Reviewed: Yes Vitals/I&O/Wt Last Vital Signs Temp 98.6 F 10/27/20 12:50 Pulse 59 L 10/27/20 14:02 Resp 16 10/27/20 13:59 BP 142/63 10/27/20 12:50 Pulse Ox 95 10/27/20 13:59 10/26/20 10/27/20 10/27/20 22:59 06:59 14:59 Intake Total 1757.833 / 2307.833 173.767 / 2481.600 813 / 813 Output Total 1100 / 1650 450 / 2100 Balance 657.833 / 657.833 -276.233 / 381.600 813 / 813 Weight last 48 hrs Weight 134 lb 9.158 oz Weight 134 lb 9.6 oz Weight 137 lb 12.8 oz Physical Exam Narrative: EXAM NARRATIVE: General: The patient is intubated and sedated, arousable Neck: No JVD Respiratory: Auscultation: Diffuse crackles bilaterally, no wheezing, occasional rhonchi Cardiovascular: Regular rate and rhythm, S1-S2 present, no peripheral edema. Abdomen: Soft, nondistended, positive bowel sound Skin: No rash Neuro: Patient is arousable, follows simple command Urinary Catheter Management^: Conn: Cath Placed During This Visit: yes Reason for Continuing Indwelling Catheter: Accurate Measurement of Urinary Output in Critically Ill Patients Urinary Catheter Date of Insertion: 10/11/20 Urinary Catheter Time of Insertion: 23:00 Data : 10/27/20 07:25 10/27/20 03:49 Micro: Microbiology 10/26/20 12:35 Gram Stain - Final Lung Left Lower Lobe Bronchoalveolar Lavage Culture - Preliminary Yeast species 10/25/20 14:45 Gram Stain - Final Sputum - Endotracheal Tube Aspirate Sputum Culture - Preliminary Yeast species Gram Negative Rods Attestation for Other Data: I personally reviewed and interpreted the following: Other data: I have reviewed the laboratory, microbiologic and radiologic data. The WBC count is trending down. The Gram stain of the bronchoalveolar lavage revealed yeast which is likely contaminant. The endotracheal tube aspirate from October 25 revealed gram-negative rods. A&P Assessment and plan (1) Hypernatremia: Improved. The patient is currently on 2 feet and 200 cc of free water flush every 12 hours. I am going to obtain a BMP at 8 PM today. 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 It appears that there has been radiologic improvement in the opacity when the CT scan from 10/[address] scan obtained in early September. We will continue with the 40 mg of Solu-Medrol at this time Status: Acute (3) Pneumonia: The patient likely has hospital-acquired pneumonia at this point, the bronchoscopy revealed macrina pus on bronchoalveolar lavage. The patient's antibiotic was switched to imipenem, I will add linezolid for the time being till I have the Gram stain culture results available. In addition, the fluid was sent for fungal pathogens including Aspergillus galactomannan. 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 For the time being, the patient is broadly covered antibiotic and will await the bronchoscopy results. Status: Acute Qualifiers: Pneumonia type: due to unspecified organism Laterality: bilateral Lung location: unspecified part of lung Qualified Code(s): J18.9 - Pneumonia, uns pecified organism (4) CHF (congestive heart failure): Since the patient was hospitalized, there has been a concern about whether the pulmonary infiltrate on the chest radiology secondary to the pulmonary edema. The patient has ischemic cardiomyopathy with an ejection fraction of 28%. The right heart catheterization revealed a wedge pressure of 11 mmHg. Going to give her 20 mg of IV Lasix today to keep her input and output even. Status: Acute Qualifiers: Heart failure chronicity: acute on chronic Heart failure type: diastolic Qualified Code(s): I50.33 - Acute on chronic diastolic (congestive) heart failure (5) Cardiac arrest: The patient is status post cardiac arrest and will likely have a guarded prognosis regardless of her future hospital course. Status: Resolved (6) Mitral valve replaced: Status: Acute (7) Atrial fibrillation: Currently the Lovenox is on hold because of trending hemoglobin. The plan is to optimize her today and overnight and then extubate her tomorrow. The patient will be supported with high flow oxygen after extubation. 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
[2020-10-27 14:53] LABS: Hematocrit 28.1 % (37.0-47.0); Hemoglobin 8.6 g/dL (11.5-15.3)
[2020-10-27] MEDS: FUROsemide 10 mg/mL SDV 2mL 20 MG IVP (15:21)
[2020-10-27] MEDS: dexmedetomidine 400 MCG in sodium chloride 0.9% (100 ml) 100 ML 7.9 MCG IV (15:21)
[2020-10-27 17:47] LABS: Glucose Point of Care 201 mg/dL (70-110)
--- NOTE | 2020-10-27 18:34 | PC.NURSE ---
Patient has been resting in bed this shift and opens eyes and able to follow commands. Patient has been unrestrained most of the shift and able to change positions.
[2020-10-27 20:19] LABS: Hematocrit 25.6 % (37.0-47.0); Hemoglobin 8.2 g/dL (11.5-15.3)
--- NOTE | 2020-10-27 20:23 | XRR_ITS ---
PROCEDURE INFORMATION: Exam: XR Chest Exam date and time: 10/27/2020 8:33 PM Age: 65 years old Clinical indication: Device placement; Ng tube; Additional info: Og tube placement TECHNIQUE: Imaging protocol: XR of the chest. Views: 1 view. COMPARISON: CR XR chest 1V portable [id number] 10/27/2020 9:47 AM FINDINGS: There is a nasogastric tube noted with tip in the mid stomach. No dilated bowel loops are seen. There is an endotracheal tube with tip at the level of the aortic arch. There is a right-sided PICC line with tip at the cavoatrial junction. There is cardiomegaly. The patient is status post heart valve surgery. There are diffuse pulmonary infiltrates, unchanged. XR/XR chest 1V portable [id number] IMPRESSION: 1. Various tubes and catheters as described. 2. Cardiomegaly, stable. 3. No change of the diffuse pulmonary infiltrates.
--- NOTE | 2020-10-27 20:26 | PC.NURSE ---
New Orders; MD Walker phoned to update on pt's current condition. RN found pt biting against ET, and actively fighting against restraints while trying to swing her legs off of the bed. When asked if she was in pain, pt would respond yes but could not give RN any indications as to where when asked. Pt repositioned. Gtt titrated as indicated. Tube feeds held based on new pending CXR for placement of OG tube. Orders placed based on findings of increased crackles, from start of this shift. approved order set, and gave orders to continue holding feeds until report populates back on current placement. New orders given to give a bolus of 25mcg Fentanyl, in addition to current running gtt's.
[2020-10-27 20:38] LABS: Alanine Aminotransferase 30 U/L (0-33); Albumin Level 2.1 g/dL (3.5-5.2); Alkaline Phosphatase 154 IU/L (35-105); Aspartate Amino Transferase 23 U/L (0-32); Blood Urea Nitrogen 19 mg/dL (8-23); Calcium 7.9 mg/dL (8.5-10.5); Carbon Dioxide 31 mmol/L (22-29); Chloride 111 mmol/L (98-107); Globulin 3.1 g/dL (1.3-4.6); Glomerular Filtration Rate 71.5 mL/min (90-130); Glucose 131 mg/dL (65-115); Osmolality Calculated 308 mOsm/kg (285-295); Sodium 147 mmol/L (136-145); Total Bilirubin 0.7 mg/dL (0.15-1.2); Total Protein 5.2 g/dL (6.6-8.7)
--- NOTE | 2020-10-27 21:50 | PC.NURSE ---
New Orders; New t/o orders given per MD Clementina to increase tube feed flushes to 300mL Q4HR. For a cumulative dose of 900mL every 12HR
--- NOTE | 2020-10-27 23:16 | PM.PN ---
Subjective Subjective: Interval history: Continues to improve remains in sinus rhythm. Medications: Reviewed: Yes Medication Review Details: Patient remains short of breath tachypneic and tachycardic. Blood pressure is also elevated. Vitals/I&O/Wt Last Vital Signs Temp 98.5 F 10/27/20 21:15 Pulse 66 10/27/20 22:00 Resp 14 10/27/20 20:26 BP 131/66 10/27/20 22:00 Pulse Ox 94 10/27/20 22:00 10/27/20 10/27/20 10/28/20 14:59 22:59 06:59 Intake Total 899.4 / 899.4 1201.605 / 2101.005 Output Total 700 / 700 Balance 899.4 / 899.4 501.605 / 1401.005 Weight last 48 hrs Weight 134 lb 9.158 oz Weight 134 lb 9.6 oz Weight 137 lb 12.8 oz Physical Exam Narrative: EXAM NARRATIVE: GENERAL: Patient is sedated on vent but opens her eye NECK: No jugular vein distension. HEENT: No cyanosis. No icterus. No pallor. HEART: Regular S1 and S2. No murmur LUNGS: Improved air entry bilaterally. ABDOMEN: Not examined CENTRAL NERVOUS SYSTEM: Grossly nonfocal. EXTREMITIES: Lower extremities without edema bilaterally. Urinary Catheter Management^: Conn: Cath Placed During This Visit: yes Reason for Continuing Indwelling Catheter: Accurate Measurement of Urinary Output in Critically Ill Patients Urinary Catheter Date of Insertion: 10/11/20 Urinary Catheter Time of Insertion: 23:00 Data : 10/27/20 20:02 10/27/20 20:02 Micro: Microbiology 10/26/20 12:35 Gram Stain - Final Lung Left Lower Lobe Bronchoalveolar Lavage Culture - Preliminary Yeast species 10/25/20 14:45 Gram Stain - Final Sputum - Endotracheal Tube Aspirate Sputum Culture - Preliminary Yeast species Gram Negative Rods A&P Assessment and plan (1) Acute respiratory failure with hypoxia: Status: Acute (2) Cardiac arrest: Status: Resolved (3) Multiorgan failure: Status: Acute (4) Atrial flutter: Status: Chronic Qualifiers: Atrial flutter type: unspecified Qualified Code(s): I48.92 - Unspecified atrial flutter (5) CHF (congestive heart failure): Status: Acute Qualifiers: Heart failure chronicity: acute on chronic Heart failure type: diastolic Qualified Code(s): I50.33 - Acute on chronic diastolic (congestive) heart failure (6) Septic shock: Status: Ruled-out (7) DIC (disseminated intravascular coagulation): Status: Acute Continues to improve pulmonary srivastava. Remains in sinus rhythm continue current regimen. 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
[2020-10-28] VITALS (110 sets, daily range): BP systolic 102–183; BP diastolic 50–109; PULSE 54–97; RESP 14–29; TEMP 36.7–36.9; O2SAT 90–100
[2020-10-28 00:43] LABS: Glucose Point of Care 111 mg/dL (70-110)
[2020-10-28] MEDS: dexmedetomidine 400 MCG in sodium chloride 0.9% (100 ml) 100 ML 15.9 MCG IV (02:10)
--- NOTE | 2020-10-28 02:31 | XR_ITS ---
WS: [id number] Portable AP upright chest, 10/28/2020 Clinical Data: increase crackles Comparison: Portable chest, 10/27/2020. Findings: The bilateral pulmonary opacities have increased slightly compared to yesterday. The patien t is rotated. The heart size is the same. The endotracheal tube, nasogastric tube and monitor leads a re the same. There is a right PICC line in position. Midline sternotomy sutures are noted. There are monitor leads and security monitor device. There is an artificial heart valve in the same position. XR/XR chest 1V portable [id number] Impression: 1. Increase in bilateral pulmonary opacities which may indicate increased vascu lar congestion and/or pneumonia. 2. No change in position of multiple tubes.
[2020-10-28] MEDS: linezolid premix 600 MG/300 ML PREMIX 300 MG IV ×2 (02:41→16:35)
[2020-10-28] MEDS: FUROsemide 10 mg/mL SDV 2mL 20 MG IVP ×2 (02:41→09:07)
[2020-10-28 03:26] LABS: Basophils % 0.3 %; Eosinophils % 0.1 %; Hematocrit 26.2 % (37.0-47.0); Hemoglobin 8.4 g/dL (11.5-15.3); Lymphocytes # 0.5 10^3/uL (0.8-4.8); Lymphocytes % 4.8 %; Mean Corpuscular HGB Conc 32.1 g/dL (30.0-36.0); Mean Corpuscular Hemoglobin 30.7 pg (28.0-34.0); Mean Corpuscular Volume 95.6 fL (81-99); Mean Platelet Volume 13.7 fL (7.4-10.4); Monocytes # 0.5 10^3/uL (0.2-0.9); Monocytes % 4.4 %; Neutrophils # 8.71 10^3/uL (1.8-7.7); Neutrophils % 80.8 %; Nucleated Red Blood Cells # 0.1 /100WBC; Nucleated Red Blood Cells % 1.3 %; Platelet Count 235 10^3/cmm (130-400); Red Blood Count 2.74 10^6/uL (4.1-5.3); Red Cell Distribution Width 17.9 % (12.1-15.1); White Blood Count 10.8 10^3/uL (4.0-10.0)
[2020-10-28 03:29] LABS: Arterial Blood Gas Hematocrit 31.7 % (37-47); Base Excess ABG 7.7 mmol/L (-2.0-2.0); Blood Gas Sample Site Brachial, right; Blood Gas Sample Type Arterial; Blood Gas Tidal Volume 0.48; HCO3 ABG 31.5 mmol/L (22-26); Oxygen Device VENT; PO2 ABG 66.6 mmHg (80.0-100.0)
[2020-10-28 03:33] LABS: INR 1.06 (0.8-1.2)
[2020-10-28 03:34] LABS: Fibrinogen 404 mg/dL (174-498); Partial Thromboplastin Time 27.6 SECONDS (23.9-36.7)
[2020-10-28 03:38] LABS: Alanine Aminotransferase 27 U/L (0-33); Albumin Level 2.2 g/dL (3.5-5.2); Alkaline Phosphatase 151 IU/L (35-105); Anion Gap 6.5 (5-19); Aspartate Amino Transferase 24 U/L (0-32); Blood Urea Nitrogen 18 mg/dL (8-23); Carbon Dioxide 31 mmol/L (22-29); Chloride 107 mmol/L (98-107); Globulin 2.9 g/dL (1.3-4.6); Glomerular Filtration Rate 83.5 mL/min (90-130); Glucose 118 mg/dL (65-115); Magnesium 1.9 mg/dL (1.7-2.3); Osmolality Calculated 295 mOsm/kg (285-295); Phosphorus 2.4 mg/dL (2.5-4.5); Potassium 3.5 mmol/L (3.5-5.1); Sodium 141 mmol/L (136-145); Total Bilirubin 0.7 mg/dL (0.15-1.2); Total Protein 5.1 g/dL (6.6-8.7)
[2020-10-28 03:39] LABS: Lactate (Lactic Acid level) 0.9 mmol/L (0.5-2.2)
[2020-10-28] MEDS: ipratropium-albuterol 3 mL Neb INHALATION ×4 (03:41→21:02)
[2020-10-28 03:44] LABS: D Dimer 5.69 ug/mIFEU (0-0.59)
[2020-10-28 03:45] LABS: Slide Review Slide Review Perform
[2020-10-28 03:49] LABS: NT Pro B Type Natriuretic Pept 6135 pg/mL (0-125); Procalcitonin 0.14 ng/mL (0-0.5)
[2020-10-28 03:52] LABS: Digoxin 0.9 ng/mL (0.6-1.2)
--- NOTE | 2020-10-28 05:25 | PC.NURSE ---
New Orders; New orders given to stop tube feedings and flushes based on change in Resp. Status, Stat CXR, 20mg IVP Lasix ONCE, and for BNP to be added to morning labs given per MD Walker.
[2020-10-28 06:34] LABS: Glucose Point of Care 103 mg/dL (70-110)
[2020-10-28 06:48] LABS: ABG PCO2 40.5 mmHg (35-45); ABG PH Result 7.53 (7.35-7.45); Arterial Blood Gas Hematocrit 22.5 % (37-47); Base Excess ABG 10.1 mmol/L (-2.0-2.0); Blood Gas Sample Site Brachial, right; Blood Gas Sample Type Arterial; Blood Gas Tidal Volume 0.48; HCO3 ABG 33.7 mmol/L (22-26); Oxygen Device VENT; PO2 ABG 85.1 mmHg (80.0-100.0)
--- NOTE | 2020-10-28 08:26 | PC.NURSE ---
Patient was extubated at 0800 with this nurse, respiratory and Dr. Mcrae at bedside. Heated high flow was placed on patient. Patient was alert and orientated to self, place and year.
--- NOTE | 2020-10-28 08:43 | PM.PN ---
Subjective Subjective: Interval history: The patient was seen and examined this morning. The patient was doing well on pressure support ventilation and extubated this morning. Post extubation the patient is on high flow oxygen. Her white count has trended down nicely. The patient received a unit of blood yesterday. She was given 20 mg of IV Lasix to keep her even. The water deficit was corrected by free water bolus overnight. Her hypernatremia has corrected. Her hemoglobin is in the eights today. Medications: Reviewed: Yes Vitals/I&O/Wt Last Vital Signs Temp 98.5 F 10/28/20 08:00 Pulse 71 10/28/20 08:15 Resp 19 H 10/28/20 08:15 BP 160/61 10/28/20 08:15 Pulse Ox 90 10/28/20 08:15 10/27/20 10/28/20 10/28/20 22:59 06:59 14:59 Intake Total 1201.605 / 2101.005 472.323 / 2573.328 Output Total 700 / 700 1250 / 1950 Balance 501.605 / 1401.005 -777.677 / 623.328 Weight last 48 hrs Weight 134 lb 12.65 oz Weight 134 lb 9.158 oz Physical Exam Narrative: EXAM NARRATIVE: General: The patient is extubated, appears awake alert and oriented Neck: No JVD Respiratory: Auscultation: Diffuse crackles bilaterally, no wheezing, occasional rhonchi Cardiovascular: Regular rate and rhythm, S1-S2 present, no peripheral edema. Abdomen: Soft, nondistended, positive bowel sound Skin: No rash Neuro: She is following commands and moving all extremities Urinary Catheter Management^: Conn: Cath Placed During This Visit: yes Reason for Continuing Indwelling Catheter: Accurate Measurement of Urinary Output in Critically Ill Patients Urinary Catheter Date of Insertion: 10/11/20 Urinary Catheter Time of Insertion: 23:00 Data : 10/28/20 03:10 10/28/20 03:10 Micro: Microbiology 10/26/20 12:35 Gram Stain - Final Lung Left Lower Lobe Bronchoalveolar Lavage Culture - Preliminary Yeast species 10/25/20 14:45 Gram Stain - Final Sputum - Endotracheal Tube Aspirate Sputum Culture - Preliminary Yeast species Gram Negative Rods Attestation for Other Data: I personally reviewed and interpreted the following: Other data: I have reviewed her laboratory, microbiologic and radiologic data. The chest x-ray continues to show bilateral infiltrate. There is no pleural effusion. The bronchoalveolar lavage culture so far has only grown yeast which is likely contaminant. There is no evidence of MRSA infection. A&P Assessment and plan (1) Hypernatremia: This is resolved. The patient was extubated this morning and does not have an NG tube at this point. I am hoping the patient will be able to eat and drink. If not, the patient may need to have an NG tube inserted again. My strong recommendation is not to give the patient any benzodiazepines, Precedex or opioid at this point. If absolutely necessary we will use Haldol intramuscularly. Status: Acute (2) Interstitial lung disease: We will continue with the Solu-Medrol 40 mg IV for the time being. Status: Acute (3) Pneumonia: The WBC count has come down nicely. The patient is currently on linezolid and imipenem. The bronchoalveolar lavage has not shown any evidence of MRSA infection. However the patient was on vancomycin when the bronchoalveolar lavage was obtained. There is also evidence of resistant gram-negative infection. Given her clinical response, at this point I will continue with the imipenem and linezolid for total of 7 days. The patient is current on high flow nasal cannula. If necessary we may have to use noninvasive positive pressure ventilation. But this should always be alternated with high flow so that the patient is able to eat and drink. Status: Acute Qualifiers: Pneumonia type: due to unspecified organism Laterality: bilateral Lung location: unspecified part of lung Qualified Code(s): J18.9 - Pneumonia, unspecified organism (4) CHF (congestive heart failure): Since the patient was hospitalized, there has been a concern about whether the pulmonary infiltrate on the chest radiology secondary to the pulmonary edema. The patient has ischemic cardiomyopathy with an ejection fraction of 28%. The right heart catheterization revealed a wedge pressure of 11 mmHg. The patient received a dose of Lasix yesterday. We will use Lasix based on her urine output to overall give her even. Starting to use Lasix routinely at this point will likely make her hyponatremic again. Status: Acute Qualifiers: Heart failure chronicity: acute on chronic Heart failure type: diastolic Qualified Code(s): I50.33 - Acute on chronic diastolic (congestive) heart failure (5) Cardiac arrest: The patient is status post cardiac arrest and will likely have a guarded prognosis. Status: Resolved (6) Mitral valve replaced: We are in the process of figuring out whether the patient has a bioprosthetic mitral valve or a mechanical mitral valve. If this is a mechanical mitral valve the patient will need to be started on anticoagulation. If this is bioprosthetic, we may have some time before we need to make a decision. Her hemoglobin did trend down with the Lovenox. Which has come up with a unit of transfusion. Status: Acute (7) Atrial fibrillation: The patient is currently in sinus rhythm. She is on metoprolol and digoxin. The cardiology team is following her. 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
[2020-10-28] MEDS: lidocaine 1% 5 ML in potassium chloride premix 100 ML 25 ML IV (09:09)
[2020-10-28] MEDS: budesonide 0.5 mg/2 mL Neb INHALATION ×2 (09:17→21:02)
--- NOTE | 2020-10-28 09:40 | PC.CHAP ---
Pastoral Care Encounter/Spiritual Assessment Type of Contact [] Declined utilization engineer visit [] Patient/Family/Request visit [] Outpatient visit [] Follow-up visit [] Physician referral [] Code/Alert [x] Routine visit [] Staff referral [] Actively dying [] Patient sleeping [] Family support [] [] Out of room [] Palliative care [] [] Receiving care in room [] Pre-surgical visit [] Trauma [] Long length of stay [x] ICU visit [] Other: Relational/Emotional Strength [] Patient feels connected with others/family/visitors/staff [] Distress [] Loneliness/isolation [] Abandonment Spirituality of Patient [] Person of Dawna [] Attends Nondenominational of their Dawna [] Believes in Prayer [] Reads Bible or Bahai materials [] There are Spiritual issues to be addressed Ladle Mechanic Interventions [x] Prayer [] Active listening [] Non-anxious presence [] Spiritual/emotional support [] Crisis/trauma care [] Spiritual counseling [] Bereavement support [] Provided bereavement packet [] Provided Bible/devotional materials [] Provided toy/stuffed animal, coloring book to patient or family member [] Provided Communion [] Anointing/[place] [] Salvation [x] Completed spiritual assessment [] Other: Impact on Illness or Injury [] Angry [] Fearful [] Anxious [] Often cries [] Exhaustion [] Unable to work [] Unable to attend jain [] Unable to walk/stand [] Unable to read [] Unable to drive [] Unable to eat/drink [] Unable to sleep [] Unable to be with family [] Patient intubated [] Other: Summary patient still can not communicate.. but brighter eyed this morning.... Time spent with patient 10 min
--- NOTE | 2020-10-28 11:11 | PC.NURSE ---
23 ml of fentanyl and 70 ml of precedex was wasted with WARNER Troncoso
--- NOTE | 2020-10-28 11:17 | P.PN_ITS ---
Subjective Subjective: Interval history: Patient was examined this morning, she was on fentanyl and Precedex for sedation, but responding to be on the ventilator, following all commands, a bit anxious, she was successfully extubated early this morning, onto heated high flow, currently doing well, following all commands, she is able to say a few words here and there, overnight remained afebrile, normotensive, normal sinus rhythm, afebrile, urine output 2450 Vitals/I&O/Wt Last Vital Signs Temp 98.5 F 10/28/20 08:00 Pulse 74 10/28/20 10:30 Resp 23 H 10/28/20 10:30 BP 161/63 10/28/20 10:30 Pulse Ox 96 10/28/20 10:30 10/27/20 10/28/20 10/28/20 22:59 06:59 14:59 Intake Total 1201.605 / 2101.005 472.323 / 2573.328 197.667 / 197.667 Output Total 700 / 700 1250 / 1950 500 / 500 Balance 501.605 / 1401.005 -777.677 / 623.328 -302.333 / -302.333 Weight last 48 hrs Weight 61.14 kg Weight 61.041 kg Physical Exam Const: COMMON NORMALS: no acute distress and alert GENERAL APPEARANCE: ill appearing ORIENTATION/CONSCIOUSNESS: Yes awake, Yes oriented to person and Yes oriented to place; not oriented to time Chest: COMMONS NORMALS: normal inspection of the chest Resp: COMMON NORMALS: normal respiratory effort, No retractions and No use of accessory muscles AUSCULTATION: crackles Cardio: COMMON NORMALS: regular rate, regular rhythm, S1 normal heart sound present and S2 normal heart sound present RATE: regular rate RHYTHM: regular rhythm HEART SOUNDS: S1 normal heart sound present and S2 normal heart sound present GI: COMMON NORMALS: Normal to inspection, nondistended, normoactive bowel sounds present, Soft to palpation and non-tender PALPATION: Yes Soft to palpation Neuro: SENSORIUM/ORIENTATION: Yes alert, Yes oriented to person, Yes oriented to place and No oriented to time OTHER: Does follow commands Urinary Catheter Management^: Conn: Cath Placed During This Visit: yes Reason for Continuing Indwelling Catheter: Accurate Measurement of Urinary Output in Critically Ill Patients Urinary Catheter Date of Insertion: 10/11/20 Urinary Catheter Time of Insertion: 23:00 Data : 10/28/20 03:10 10/28/20 03:10 Micro: Microbiology 10/26/20 12:35 Gram Stain - Final Lung Left Lower Lobe Bronchoalveolar Lavage Culture - Preliminary Yeast species 10/25/20 14:45 Gram Stain - Final Sputum - Endotracheal Tube Aspirate Sputum Culture - Preliminary Yeast species Gram Negative Rods A&P Assessment and plan (1) Acute respiratory failure with hypoxia: Successfully extubated this morning Currently on heated high flow Monitor respiratory status closely, BiPAP as needed Bedside swallow eval Will give 1 dose of 20 mg IV Lasix We will plan on transferring to [facility] in the next 24 to 48 hours Alternated between BiPAP and heated high flow oxygen 10/18-10/24 with FIO2 ranging from 40-70% Intubated on 10/24/2020 after progressively tiring out and developing acute respiratory failure with hypercapnia, hypoxia and respiratory acidosis There is concern for pulmonary abscess versus infarct on CT imaging of the chest performed on Monday, remains on broad-spectrum antibiotic therapy, On CT im aging of the chest patient was noted to have a left lower lobe cystic opacity, in the area that she had a ruptured diaphragm and underwent surgical intervention. No definite evidence of necrosis currently, or pulmonary infarct. However this is likely just postsurgical changes from ruptured diaphragm Plan on continuing broad-spectrum antibiotic therapy Primaxin, Zyvox, will consider adding antifungals for fungemia based on bronchoscopy cultures, or if fevers, or elevated leukocytosis Sputum cultures do show gram-negative's As patient's hemoglobin now 8.4, status post 1 unit PRBC, hemoglobin stable, no bloody or black stools, will start her on a heparin drip for A. fib, monitor hemoglobin closely Status post bronchoscopy yesterday, bronchial lavage, cultures pending Status post right heart cath pulmonary capillary wedge pressure was 11 Serum sodium improved to 141 Remains -4.7 L since hospitalization On broad-spectrum antibiotics since hospital admission 1 blood culture bottle with coag negative staph felt to be contaminant, remainder negative to date Sputum culture showed yeast and now gram-negative rods, urine culture showed yeast, Bronchiolar lavage cultures, follow cultures, will monitor for fungemia Negative covid PCR 10/11/20 Amiodarone toxicity suspected per discussions with pulmonology, has been stopped on prednisone 40 mg daily for pulmonary fibrosis Plan for today, continue aggressive pulmonary toilet, swallow eval, continue high flow, heparin drip started, monitor hemoglobin, monitor respiratory status closely, continue antibiotics, working on placement to [facility] Status: Acute (2) Hypernatremia: Resolved, 141 Secondary to volume depletion and diuresis Status: Acute (3) Pulmonary fibrosis: Discussed with pulmonolgy and concern is for interstitial pulmonary fibrosis possibly from amioadarone toxicity as findings were not present about a year ago. Had been started on amioadarone in the interim as I understand it from last CT images to current. Has not been able to have a biopsy. Steriods resumed 10/22 Status: Acute (4) Septic shock: Per discussion with pulmonology and review of notes, could be a mixture of cardiogenic and infection/septic shock, with the degree of organ involvement Status: Ruled-out (5) Cardiac arrest: 10/12/2020 approximately 15 minutes rescusitation with ROSC Status: Resolved (6) Pneumonia: Present on admission, organism unknown versus progressive pulmonary fibrosis and pulmonary edema. COVID was negative on 10/11 via rapid and PCR, Sputum cultures from yeast species and gram-negative rods, will monitor for fungemia Status: Acute Qualifiers: Pneumonia type: due to unspecified organism Laterality: bilateral Lung location: unspecified part of lung Qualified Code(s): J18.9 - Pneumonia, unspecified organism (7) Acute pyelonephritis: Noted on CT imaging, organism is unknown, urine culture showing yeast species, will monitor closely for fungemia Status: Acute (8) NSTEMI (non-ST elevated myocardial infarction): Type II process from cardiac arrest suspected but she also has a history of coronary artery disease. Peak troponin 112. Status: Acute (9) Multiorgan failure: Secondary to cardiogenic shock and cardiac arrest Status: Acute (10) Thickening of wall of gallbladder: Unclear current clinical significance Status: Acute (11) Transaminitis: And other LFT elevation from shock liver, near resolution Status: Acute (12) Steroid-induced gastritis: At the time of admission, had been on steroids for inflammatory and pu lmonary reasons, on PPI Status: Acute (13) Supratherapeutic international normalized ratio (INR): Was chronically on coumadin prior to admission with INR 9, and possibly as high as 16 per information reported to me. Developed DIC with initial improvement in INR but after attempted anticoagualtion resumption, INR increased again, vitamin K replacement on 10/23/2020 with now normalized INR Status: Acute (14) DIC (disseminated intravascular coagulation): without gross bleeding; secondary to cardiac arrest and subsequent mul tiorgan failure, lab values trending towards improvement Status: Acute (15) Lactic acidosis: Looks like this occurred around the time of the cardiac arrest. Could be secondary hypoxemia rather than indicative of septic shock. Status: Resolved (16) Hypoxic brain injury: Follows commands Suspected status post cardiac arrest with 15 minutes ACLS on 10/12. Was following simple commands, responding to questions, wanting to eat, asking for things she wanted, but remained restless at times, anxious prior to reintubation, weak but motor strength equal bilaterally, has not been up out of bed Now has been reintubated, on fentanyl and Precedex Status: Acute (17) Hx of mitral valve repair: Some records indicate history of mitral valve replacement, likely bioprosthetic, with angioplasty ring, had a transesophageal echocardiogram in 2018 Status: Inactive (18) COPD (chronic obstructive pulmonary disease): Longstanding, severe Status: Chronic Qualifiers: COPD type: unspecified COPD Qualified Code(s): J44.9 - Chronic obstructive pulmonary disease, unspecified (19) Atrial flutter: Chronic. Has been treated with amiodarone, Cardizem. Follows with Dr. Rizo outpatient. On Coumadin prior to admission. Will NOT resume amiodarone due to suspected pulmonary toxicity. TSH 09/09/20 was 3.73. Most recent recommendations based on EF and rate is digoxin and metoprolol. Dig level just above therapeutic range 10/25 so doing changed to every other day. 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 Coker at the time of admission Status: Acute (23) Opacity of lung on imaging study: There is concern for pulmonary abscess versus infarct on CT imaging of the chest performed yesterday, remains on broad-spectrum antibiotic therapy, did receive 1 dose of therapeutic Lovenox last night. On CT imaging of the chest patient was noted to have a left lower lobe cystic opacity, in the area that she had a ruptured diaphragm and underwent surgical intervention. No definite evidence of necrosis currently, or pulmonary infarct. This is likely postsurgical changes, from diaphragm repair Plan on continuing broad-spectrum antibiotic therapy Primaxin, Zyvox, will consider adding antifungals for fungemia based on bronchoscopy cultures, or if fevers, or elevated leukocytosis Status: Acute Additional A&P Information Discolored toes on right foot the same, arterial and venous US of legs have been done and were unrevealing History of surgery to repair ruptured diaphragm this year in August Nutrition following Insulin every 6 hours if needed CVL removed 10/23, PICC line placed 10/23 Conn due to critical care patient on intermittent diuresis and close UOP monit oring Stool softeners If diarrhea, check stool for c diff SCDs for DVT prophylaxis, heparin drip Had venous and arterial dopplers of legs 10/23 On IV PPI Referral has been sent to [facility] await response from review Supportive care otherwise Full code Attestations Medical Necessity Statement*: Patient requires hospitalization, ICU, for acute hypoxic respiratory failure, awaiting placement to [facility], critical care time spent over 55 minutes Coding Level of Care Code Acute Community Organizer for [facility] Diagnoses Acute respiratory failure with hypoxia J96.01 Hypernatremia E87.0 Pulmonary fibrosis J84.10 Septic shock A41.9; R65.21 Cardiac arrest I46.9 Pneumonia J18.9 Pneumonia type: due to unspecified organism Laterality: bilateral Lung location: unspecified part of lung Acute pyelonephritis N10 NSTEMI (non-ST elevated myocardial infarction) I21.4 Multiorgan failure Thickening of wall of gallbladder K82.8 Transaminitis R74.01 Steroid-induced gastritis K29.60; T38.0X5A Supratherapeutic international normalized ratio (INR) R79.1 DIC (disseminated intravascular coagulation) D65 Lactic acidosis E87.2 Hypoxic brain injury G93.1 Hx of mitral valve repair Z98.890 COPD (chronic obstructive pulmonary disease) J44.9 COPD type: unspecified COPD Atrial flutter I48.92 Atrial flutter type: unspecified 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
[2020-10-28] MEDS: pantoprazole 40 mg SDV IVP ×2 (11:23→20:54)
[2020-10-28] MEDS: metoprolol tartrate 25 mg Tablet PO ×2 (11:23→20:54)
[2020-10-28] MEDS: digoxin 125 mcg Tablet PO (11:23)
[2020-10-28] MEDS: sennosides-docusate Tablet 1 TAB PO (11:25)
[2020-10-28] MEDS: sucralfate 1 gm Tablet PO ×2 (11:25→20:54)
[2020-10-28 16:34] LABS: Glucose Point of Care 119 mg/dL (70-110)
[2020-10-28 17:47] LABS: Glucose Point of Care 141 mg/dL (70-110)
[2020-10-29] VITALS (103 sets, daily range): BP systolic 121–172; BP diastolic 52–90; PULSE 67–88; RESP 8–26; TEMP 36.2–37.1; O2SAT 73–100
[2020-10-29 00:41] LABS: Glucose Point of Care 74 mg/dL (70-110)
[2020-10-29] MEDS: ipratropium-albuterol 3 mL Neb INHALATION ×4 (02:58→19:59)
[2020-10-29 03:36] LABS: Basophils # 0.1 10^3/uL (0.0-0.1); Basophils % 0.4 %; Eosinophils % 0.1 %; Hematocrit 29.3 % (37.0-47.0); Hemoglobin 9.3 g/dL (11.5-15.3); Lymphocytes # 0.4 10^3/uL (0.8-4.8); Lymphocytes % 2.9 %; Mean Corpuscular HGB Conc 31.7 g/dL (30.0-36.0); Mean Corpuscular Hemoglobin 30.2 pg (28.0-34.0); Mean Corpuscular Volume 95.1 fL (81-99); Mean Platelet Volume 13.3 fL (7.4-10.4); Monocytes # 0.7 10^3/uL (0.2-0.9); Monocytes % 5.6 %; Neutrophils # 9.45 10^3/uL (1.8-7.7); Neutrophils % 79.2 %; Nucleated Red Blood Cells # 0.1 /100WBC; Platelet Count 267 10^3/cmm (130-400); Red Blood Count 3.08 10^6/uL (4.1-5.3); Red Cell Distribution Width 18.2 % (12.1-15.1)
[2020-10-29 03:41] LABS: INR 1.09 (0.8-1.2)
[2020-10-29 03:42] LABS: Fibrinogen 414 mg/dL (174-498); Partial Thromboplastin Time 27.5 SECONDS (23.9-36.7)
[2020-10-29 03:49] LABS: Alanine Aminotransferase 30 U/L (0-33); Albumin Level 2.4 g/dL (3.5-5.2); Alkaline Phosphatase 196 IU/L (35-105); Anion Gap 9.5 (5-19); Aspartate Amino Transferase 32 U/L (0-32); Blood Urea Nitrogen 16 mg/dL (8-23); C Reactive Protein 76.4 mg/L (0.0-4.9); Calcium 8.6 mg/dL (8.5-10.5); Carbon Dioxide 30 mmol/L (22-29); Chloride 106 mmol/L (98-107); Globulin 3.4 g/dL (1.3-4.6); Glomerular Filtration Rate 83.5 mL/min (90-130); Glucose 70 mg/dL (65-115); Osmolality Calculated 294 mOsm/kg (285-295); Phosphorus 3.2 mg/dL (2.5-4.5); Potassium 3.5 mmol/L (3.5-5.1); Sodium 142 mmol/L (136-145); Total Bilirubin 0.8 mg/dL (0.15-1.2); Total Protein 5.8 g/dL (6.6-8.7)
[2020-10-29 03:51] LABS: Lactate (Lactic Acid level) 0.9 mmol/L (0.5-2.2)
[2020-10-29 03:52] LABS: D Dimer 7.06 ug/mIFEU (0-0.59)
[2020-10-29 04:07] LABS: NT Pro B Type Natriuretic Pept 18801 pg/mL (0-125); Procalcitonin 0.16 ng/mL (0-0.5)
[2020-10-29] MEDS: linezolid premix 600 MG/300 ML PREMIX 300 MG IV ×2 (04:07→16:49)
[2020-10-29 04:10] LABS: Slide Review Slide Review Perform
[2020-10-29 04:31] LABS: ABG PH Result 7.43 (7.35-7.45)
[2020-10-29 04:32] LABS: ABG PCO2 49.8 mmHg (35-45); Base Excess ABG 7.7 mmol/L (-2.0-2.0); Blood Gas Operator Identificat JB; PO2 ABG 81.1 mmHg (80.0-100.0)
[2020-10-29 04:33] LABS: Arterial Blood Gas Hematocrit 27.4 % (37-47); Blood Gas Drawn By BISJE; Oxygen Device NC
[2020-10-29] MEDS: sucralfate 1 gm Tablet PO ×4 (06:06→21:33)
[2020-10-29 07:29] LABS: Glucose Point of Care 112 mg/dL (70-110)
[2020-10-29 08:02] LABS: Blood Gas Sample Site Brachial, right; Blood Gas Sample Type Arterial
[2020-10-29] MEDS: budesonide 0.5 mg/2 mL Neb INHALATION ×2 (08:54→19:55)
--- NOTE | 2020-10-29 09:07 | PC.CHAP ---
Pastoral Care Encounter/Spiritual Assessment Type of Contact [] Declined controls design engineer visit [] Patient/Family/Request visit [] Outpatient visit [] Follow-up visit [] Physician referral [] Code/Alert [x] Routine visit [] Staff referral [] Actively dying [] Patient sleeping [] Family support [] [] Out of room [] Palliative care [] [] Receiving care in room [] Pre-surgical visit [] Trauma [] Long length of stay [x] ICU visit [] Other: Relational/Emotional Strength [] Patient feels connected with others/family/visitors/staff [] Distress [] Loneliness/isolation [] Abandonment Spirituality of Patient [] Person of Dawna [] Attends Gnosticism of their Dawna [] Believes in Prayer [] Reads Bible or Roman Catholic materials [] There are Spiritual issues to be addressed Forest Fire Management Officer Interventions [x] Prayer [x] Active listening [x] Non-anxious presence [x] Spiritual/emotional support [] Crisis/trauma care [] Spiritual counseling [] Bereavement support [] Provided bereavement packet [] Provided Bible/devotional materials [] Provided toy/stuffed animal, coloring book to patient or family member [] Provided Communion [] Anointing/[place] [] Salvation [x] Completed spiritual assessment [] Other: Impact on Illness or Injury [] Angry [] Fearful [] Anxious [] Often cries [] Exhaustion [] Unable to work [] Unable to attend muslim [] Unable to walk/stand [] Unable to read [] Unable to drive [] Unable to eat/drink [] Unable to sleep [] Unable to be with family [] Patient intubated [] Other: Summary first time in 18 days heard patients voice.. speaking with clarity... looks so much stronger and better.. Time spent with patient 15 min
--- NOTE | 2020-10-29 10:20 | PM.PN ---
Subjective Subjective: Interval history: The patient was seen and examined this morning. She is doing very well. Sitting in a chair. Able to answer all questions and not complaining of any shortness of breath. Medications: Reviewed: Yes Vitals/I&O/Wt Last Vital Signs Temp 98.7 F 10/29/20 04:15 Pulse 68 10/29/20 09:03 Resp 14 10/29/20 08:50 BP 156/77 10/29/20 08:15 Pulse Ox 96 10/29/20 08:50 10/28/20 10/29/20 10/29/20 22:59 06:59 14:59 Intake Total 705 / 950.009 550 / 1500.009 Output Total 1100 / 1601 650 / 2251 Balance -395 / -650.991 -100 / -750.991 Weight last 48 hrs Weight 134 lb 9.475 oz Weight 134 lb 12.65 oz Physical Exam Narrative: EXAM NARRATIVE: General: The patient is awake alert and oriented Neck: No JVD Respiratory: Auscultation: Crackles no predominantly in the right lower posterior lung, no wheezing, occasional rhonchi Cardiovascular: Regular rate and rhythm, S1-S2 present, no peripheral edema. Abdomen: Soft, nondistended, positive bowel sound Skin: No rash Neuro: She is following commands and moving all extremities Urinary Catheter Management^: Conn: Cath Placed During This Visit: yes Reason for Continuing Indwelling Catheter: Accurate Measurement of Urinary Output in Critically Ill Patients Urinary Catheter Date of Insertion: 10/11/20 Urinary Catheter Time of Insertion: 23:00 Data : 10/29/20 03:10 10/29/20 03:10 Micro: Microbiology 10/25/20 14:45 Gram Stain - Final Sputum - Endotracheal Tube Aspirate Sputum Culture - Preliminary Yeast species Gram Negative Rods 10/24/20 19:19 Urine Culture - Preliminary Urine Catheterized Yeast species 10/26/20 12:35 Gram Stain - Final Lung Left Lower Lobe Bronchoalveolar Lavage Culture - Preliminary Gram Negative Rods Yeast species Attestation for Other Data: I personally reviewed and interpreted the following: Other data: I have reviewed the patient's laboratory, microbiologic and radiologic data. Her WBC count stable. Electrolytes are stable. The bronchoalveolar lavage is growing gram-negative vipul. We do not have the species yet. A&P Assessment and plan (1) Hypernatremia: Resolved. Status: Acute (2) Interstitial lung disease: We can switch the patient to prednisone 40 mg daily with a slow taper over a few months as outpatient. Status: Acute (3) Pneumonia: The patient likely had a gram-negative infection. However as the patient was on anti-MRSA antibiotic, continue with imipenem and Zyvox for a total of 7 days. Status: Acute Qualifiers: Pneumonia type: due to unspecified organism Laterality: bilateral Lung location: unspecified part of lung Qualified Code(s): J18.9 - Pneumonia, unspecified organism (4) CHF (congestive heart failure): The patient is euvolemic currently. The patient can be started on a small dose of oral Lasix. The cardiology team is following. Status: Acute Qualifiers: Heart failure chronicity: acute on chronic Heart failure type: diastolic Qualified Code(s): I50.33 - Acute on chronic diastolic (congestive) heart failure (5) Cardiac arrest: The patient is status post cardiac arrest. Status: Resolved (6) Mitral valve replaced: We are in the process of figuring out whether the patient has a bioprosthetic mitral valve or a mechanical mitral valve. She is back on anticoagulation. Status: Acute (7) Atrial fibrillation: The patient is currently in sinus rhythm. She is on metoprolol and digoxin. The cardiology team is following her. Status: Acute Attestations Medical Necessity Statement*: Will defer to the primary team Coding Level of Care Code Acute Hand Ii Cutter for [facility] Fwd Diagnoses Hypernatremia E87.0 Interstitial lung disease J84.9 Pneumonia J18.9 Pneumonia type: due to unspecified organism Laterality: bilateral Lung location: unspecified part of lung CHF (congestive heart failure) I50.33 Heart failure chronicity: acute on chronic Heart failure type: diastolic Cardiac arrest I46.9 Mitral valve replaced Z95.2 Atrial fibrillation I48.91
[2020-10-29] MEDS: pantoprazole 40 mg SDV IVP ×2 (10:46→21:32)
[2020-10-29] MEDS: sennosides-docusate Tablet 1 TAB PO (10:47)
[2020-10-29] MEDS: metoprolol tartrate 25 mg Tablet PO ×2 (10:47→21:33)
[2020-10-29] MEDS: heparin drip 25,000 UNIT/500 ML PREMIX 17.1 UNIT IV (10:49)
--- NOTE | 2020-10-29 12:45 | PM.PN ---
Subjective Subjective: Interval history: Patient was examined this morning, she is alert to person, to place, to time, she follows all commands, she tells me that she is feeling hungry, hoping she could have something to eat, she is on 3-1/2 L, denies shortness of breath, she tells me that she had a large bowel movement this morning, I went over patient's medical care with her, she voiced understanding, all questions answered, she voiced understanding, she tells me that she continues to have a cough, that is worrying her Vitals/I&O/Wt Last Vital Signs Temp 98.7 F 10/29/20 04:15 Pulse 68 10/29/20 09:03 Resp 14 10/29/20 08:50 BP 156/77 10/29/20 08:15 Pulse Ox 96 10/29/20 08:50 10/28/20 10/29/20 10/29/20 22:59 06:59 14:59 Intake Total 705 / 950.009 550 / 1500.009 Output Total 1100 / 1601 650 / 2251 Balance -395 / -650.991 -100 / -750.991 Weight last 48 hrs Weight 61.05 kg Weight 61.14 kg Physical Exam Const: COMMON NORMALS: no acute distress GENERAL APPEARANCE: cooperative and frail appearing ORIENTATION/CONSCIOUSNESS: Yes awake, Yes oriented to person and Yes oriented to place Neck/C-Spine: COMMON NORMALS: no JVD Resp: COMMON NORMALS: normal respiratory effort, No retractions and No use of accessory muscles OTHER: Has crackles on exam Cardio: COMMON NORMALS: no JVD, regular rate, regular rhythm, S1 normal heart sound present and S2 normal heart sound present RATE: regular rate RHYTHM: regular rhythm HEART SOUNDS: S1 normal heart sound present and S2 normal heart sound present GI: COMMON NORMALS: Normal to inspection, nondistended, normoactive bowel sounds present, Soft to palpation, non-tender and No hepatosplenomegaly present PALPATION: Yes Soft to palpation and Yes No hepatosplenomegaly present Extremity: COMMON NORMALS: no pedal edema Neuro: SENSORIUM/ORIENTATION: Yes oriented to person and Yes oriented to place Urinary Catheter Management^: Conn: Cath Placed During This Visit: yes Reason for Continuing Indwelling Catheter: Accurate Measurement of Urinary Output in Critically Ill Patients Urinary Catheter Date of Insertion: 10/11/20 Urinary Catheter Time of Insertion: 23:00 Data : 10/29/20 03:10 10/29/20 03:10 Micro: Microbiology 10/26/20 12:35 Gram Stain - Final Lung Left Lower Lobe Bronchoalveolar Lavage Culture - Preliminary Gram Negative Rods Yeast species 10/25/20 14:45 Gram Stain - Final Sputum - Endotracheal Tube Aspirate Sputum Culture - Preliminary Stenotrophomonas maltophilia Yeast species Yeast species#2 10/24/20 19:19 Urine Culture - Preliminary Urine Catheterized Yeast species A&P Assessment and plan (1) Acute respiratory failure with hypoxia: Successfully extubated 10/28/2020 Currently on 3.5 L Monitor respiratory status closely, BiPAP as needed Bedside swallow eval, seen by speech, advised diet as tolerated Does have a chronic cough, worrisome for chronic aspiration events, will have to placed on aspiration precautions Will give 1 dose of 20 mg IV Lasix Sputum cultures are positive for gram-negative rods Working on transfer to [facility] Alternated between BiPAP and heated high flow oxygen 10/18-10/24 with FIO2 ranging from 40-70% Intubated on 10/24/2020 after progressively tiring out and developing acute respiratory failure with hypercapnia, hypoxia and respiratory acidosis There is concern for pulmonary abscess versus infarct on CT imaging of the chest performed on Monday, remains on broad-spectrum antibiotic therapy, On CT imaging of the chest patient was noted to have a left lower lobe cystic opacity, in the area that she had a ruptured diaphragm and underwent surgical intervention. No definite evidence of necrosis currently, or pulmonary infarct. However this is likely just postsurgical changes from ruptured diaphragm Plan on continuing broad-spectrum antibiotic therapy Primaxin, Zyvox, Sputum cultures do show gram-negative rods As patient's hemoglobin now 9.3, status post 1 unit PRBC, hemoglobin stable, no bloody or black stools, will start her on a heparin drip for A. fib, monitor hemoglobin closely Status post bronchoscopy yesterday, bronchial lavage, cultures pending Status post right heart cath pulmonary capillary wedge pressure was 11 Serum sodium improved to 142 Remains -5.3 L since hospitalization On broad-spectrum antibiotics since hospital admission 1 blood culture bottle with coag negative staph felt to be contaminant, remainder negative to date Sputum culture showed yeast and now gram-negative rods, urine culture showed yeast, Bronchiolar lavage cultures gram-negative rods Negative covid PCR 10/11/20 Amiodarone toxicity suspected per discussions with pulmonology, has been stopped on prednisone 40 mg daily for pulmonary fibrosis Plan for today, continue aggressive pulmonary toilet, swallow eval, continue oxygen, heparin drip, monitor for bleeding, monitor respiratory status closely, continue antibiotics, working on placement to [facility], PT OT Status: Acute (2) Hypernatremia: Resolved Secondary to volume depletion and diuresis Status: Acute (3) Pulmonary fibrosis: Discussed with pulmonolgy and concern is for interstitial pulmonary fibrosis possibly from amioadarone toxicity as findings were not present about a year ago. Had been started on amioadarone in the interim as I understand it from last CT images to current. Has not been able to have a biopsy. Steriods resumed 10/22 Status: Acute (4) Septic shock: Per discussion with pulmonology and review of notes, could be a mixture of cardiogenic and infection/septic shock, with the degree of organ involvement Status: Ruled-out (5) Cardiac arrest: 10/12/2020 approximately 15 minutes rescusitation with ROSC Status: Resolved (6) Pneumonia: Present on admission, organism unknown versus progressive pulmonary fibrosis and pulmonary edema. COVID was negative on 10/11 via rapid and PCR, Sputum cultures from yeast species and gram-negative rods, will monitor for fungemia Status: Acute Qualifiers: Pneumonia type: due to unspecified organism Laterality: bilateral Lung location: unspecified part of lung Qualified Code(s): J18.9 - Pneumonia, unspecified organism (7) Acute pyelonephritis: Noted on CT imaging, organism is unknown, urine culture showing yeast species, will monitor closely for fungemia Status: Acute (8) NSTEMI (non-ST elevated myocardial infarction): Type II process from cardiac arrest suspected but she also has a history of coronary artery disease. Peak troponin 112. Status: Acute (9) Multiorgan failure: Secondary to cardiogenic shock and cardiac arrest Status: Acute (10) Thickening of wall of gallbladder: Unclear current clinical significance Status: Acute (11) Transaminitis: And other LFT elevation from shock liver, near resolution Status: Acute (12) Steroid-induced gastritis: At the time of admission, had been on steroids for inflammatory and pulmonary reasons, on PPI Status: Acute (13) Supratherapeutic international normalized ratio (INR): Was chronically on coumadin prior to admission with INR 9, and possibly as high as 16 per information reported to me. Developed DIC with initial improvement in INR but after attempted anticoagualtion resumption, INR increased again, vitamin K replacement on 10/23/2020 with now normalized INR Status: Acute (14) DIC (disseminated intravascular coagulation): without gross bleeding; secondary to cardiac arrest and subsequent multiorgan failure, lab values trending towards improvement Status: Acute (15) Lactic acidosis: Looks like this occurred around the time of the cardiac arrest. Could be secondary hypoxemia rather than indicative of septic shock. Status: Resolved (16) Hypoxic brain injury: Follows commands Suspected status post cardiac arrest with 15 minutes ACLS on 10/12. Was following simple commands, responding to questions, wanting to eat, asking for things she wanted, but remained restless at times, anxious prior to reintubation, weak but motor strength equal bilaterally, has not been up out of bed Now has been reintubated, on fentanyl and Precedex Status: Acute (17) Hx of mitral valve repair: Some records indicate history of mitral valve replacement, likely bioprosthetic, with angioplasty ring, had a transesophageal echocardiogram in 2018 Status: Inactive (18) COPD (chronic obstructive pulmonary disease): Longstanding, severe Status: Chronic Qualifiers: COPD type: unspecified COPD Qualified Code(s): J44.9 - Chronic obstructive pulmonary disease, unspecified (19) Atrial flutter: Chronic. Has been treated with amiodarone, Cardizem. Follows with Dr. Rizo outpatient. On Coumadin prior to admission. Will NOT resume amiodarone due to suspected pulmonary toxicity. TSH 09/09/20 was 3.73. Most recent recommendations based on EF and rate is digoxin and metoprolol. Dig level just above therapeutic range 10/25 so doing changed to every other day. 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 Coker at the time of admission Status: Acute (23) Opacity of lung on imaging study: There is concern for pulmonary abscess versus infarct on CT imaging of the chest performed yesterday, remains on broad-spectrum antibiotic therapy, did receive 1 dose of therapeutic Lovenox last night. On CT imaging of the chest patient was noted to have a left lower lobe cystic opacity, in the area that she had a ruptured diaphragm and underwent surgical intervention. No definite evidence of necrosis currently, or pulmonary infarct. This is likely postsurgical changes, from diaphragm repair Plan on continuing broad-spectrum antibiotic therapy Primaxin, Zyvox, will consider adding antifungals for fungemia based on bronchoscopy cultures, or if fevers, or elevated leukocytosis Status: Acute Additional A&P Information Discolored toes on right foot the same, arterial and venous US of legs have been done and were unrevealing History of surgery to repair ruptured diaphragm this year in August Nutrition following CVL removed 10/23, PICC line placed 10/23 Conn due to critical care patient on intermittent diuresis and close UOP monitoring Stool softeners If diarrhea, check stool for c diff SCDs for DVT prophylaxis, heparin drip Had venous and arterial dopplers of legs 10/23 On IV PPI Referral has been sent to [facility] operator acute care await response from review Supportive care otherwise Full code Attestations Medical Necessity Statement*: Patient requires hospitalization, for acute respiratory failure, critical care time spent over 55 minutes Coding Level of Care Code Acute [facility] Diagnoses Acute respiratory failure with hypoxia J96.01 Hypernatremia E87.0 Pulmonary fibrosis J84.10 Septic shock A41.9; R65.21 Cardiac arrest I46.9 Pneumonia J18.9 Pneumonia type: due to unspecified organism Laterality: bilateral Lung location: unspecified part of lung Acute pyelonephritis N10 NSTEMI (non-ST elevated myocardial infarction) I21.4 Multiorgan failure Thickening of wall of gallbladder K82.8 Transaminitis R74.01 Steroid-induced gastritis K29.60; T38.0X5A Supratherapeutic international normalized ratio (INR) R79.1 DIC (disseminated intravascular coagulation) D65 Lactic acidosis E87.2 Hypoxic brain injury G93.1 Hx of mitral valve repair Z98.890 COPD (chronic obstructive pulmonary disease) J44.9 COPD type: unspecified COPD Atrial flutter I48.92 Atrial flutter type: unspecified 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
[2020-10-29 13:28] LABS: Estmated Average Glucose 111; Hemoglobin A1C 5.5 % (4.0-6.0)
[2020-10-29 20:01] LABS: Partial Thromboplastin Time 37.3 SECONDS (23.9-36.7)
--- NOTE | 2020-10-29 20:06 | PC.NURSE ---
Weighed patient at beginning of shift, patient weight 126 lbs. Decreased Heparin infusion to 16 mls/hr from previous 17 mls/hr per protocol.
--- NOTE | 2020-10-29 23:11 | PC.NURSE ---
AO x4, answers questions and follows commands, responses are weak, no C/O at this time, supine 45 degrees call light within reach, tolerating NC at this time regular unlabored RR denied SOB
[2020-10-30] VITALS (90 sets, daily range): BP systolic 117–183; BP diastolic 59–123; PULSE 68–90; RESP 13–79; TEMP 37–37.1; O2SAT 89–100
[2020-10-30] MEDS: HYDROcodone-acetaminophen 5-325 mg Tablet 1 TAB PO (01:37)
[2020-10-30] MEDS: ipratropium-albuterol 3 mL Neb INHALATION ×3 (02:06→14:44)
[2020-10-30 02:28] LABS: Partial Thromboplastin Time 35.1 SECONDS (23.9-36.7)
[2020-10-30] MEDS: linezolid premix 600 MG/300 ML PREMIX 300 MG IV ×2 (02:40→16:30)
[2020-10-30 04:16] LABS: Alanine Aminotransferase 25 U/L (0-33); Albumin Level 2.2 g/dL (3.5-5.2); Alkaline Phosphatase 157 IU/L (35-105); Aspartate Amino Transferase 25 U/L (0-32); Basophils % 0.3 %; Blood Urea Nitrogen 12 mg/dL (8-23); Calcium 8.2 mg/dL (8.5-10.5); Carbon Dioxide 31 mmol/L (22-29); Chloride 104 mmol/L (98-107); Globulin 3.2 g/dL (1.3-4.6); Glomerular Filtration Rate 99.7 mL/min (90-130); Glucose 149 mg/dL (65-115); Hematocrit 27.9 % (37.0-47.0); Hemoglobin 8.7 g/dL (11.5-15.3); Lymphocytes # 0.4 10^3/uL (0.8-4.8); Lymphocytes % 3.6 %; Magnesium 1.9 mg/dL (1.7-2.3); Mean Corpuscular HGB Conc 31.2 g/dL (30.0-36.0); Mean Corpuscular Hemoglobin 30.1 pg (28.0-34.0); Mean Corpuscular Volume 96.5 fL (81-99); Mean Platelet Volume 14.1 fL (7.4-10.4); Monocytes # 0.5 10^3/uL (0.2-0.9); Monocytes % 4.5 %; Neutrophils # 9.37 10^3/uL (1.8-7.7); Neutrophils % 81.7 %; Nucleated Red Blood Cells # 0.1 /100WBC; Nucleated Red Blood Cells % 0.4 %; Osmolality Calculated 293 mOsm/kg (285-295); Phosphorus 2.7 mg/dL (2.5-4.5); Platelet Count 272 10^3/cmm (130-400); Red Blood Count 2.89 10^6/uL (4.1-5.3); Red Cell Distribution Width 18.2 % (12.1-15.1); Sodium 140 mmol/L (136-145); Total Bilirubin 0.7 mg/dL (0.15-1.2); Total Protein 5.4 g/dL (6.6-8.7); White Blood Count 11.5 10^3/uL (4.0-10.0)
[2020-10-30 04:17] LABS: Anion Gap 8.6 (5-19); Potassium 3.6 mmol/L (3.5-5.1)
[2020-10-30 04:53] LABS: Slide Review Slide Review Perform
[2020-10-30] MEDS: sucralfate 1 gm Tablet PO ×3 (06:00→16:32)
--- NOTE | 2020-10-30 06:21 | PC.NURSE ---
uneventful night, small amount of sputum requiring Yanker suctioning, no c/o at this time, tolerated NC all night, supine 45 degrees call light within reach
--- NOTE | 2020-10-30 07:34 | XR_ITS ---
WS: [id number] Portable AP upright chest, 10/30/2020 Clinical Data: increased chest congestion. Comparison: Portable chest, 10/28/2020. Findings: The diffuse bilateral pulmonary opacities remain the same. There may be bilateral effusions . The heart is not enlarged. The endotracheal tube and nasogastric tube have been removed. Midline st ernotomy sutures are present. The right PICC line remains in position. There is a left subclavian toy nt present. Left lower lateral rib fractures are seen. Monitor leads are on the chest wall. XR/XR chest 1V portable [id number] Impression: 1. No change in bilateral pulmonary opacities. 2. Removal of endotracheal tube and nasogastric tube. 3. Bilateral pleural effusions.
--- NOTE | 2020-10-30 07:46 | PC.NURSE ---
Pt struggling this am. Lungs found to be course on assessment. Dr. Nixon notifed. New orders received.
[2020-10-30] MEDS: FUROsemide 10 mg/mL SDV 4mL 40 MG IVP (07:51)
[2020-10-30 08:05] LABS: ABG PH Result 7.42 (7.35-7.45); Alveolar-Arterial Oxygen Gradi 16.8 mmHg (5-10); Arterial Blood Gas Hematocrit 31.3 % (37-47); Base Excess ABG 7.9 mmol/L (-2.0-2.0); Blood Gas Operator Identificat GD; Blood Gas Sample Site Brachial, left; Blood Gas Sample Type Arterial; Carboxyhemoglobin 1.2 %THgb (0.4-20.1); HCO3 ABG 33.6 mmol/L (22-26); HGB O2 Sat 91.6 % (95-100); Ionized Calcium Level - ABG 1.3 mmol/L (1.1-1.4); Methemoglobin 0.6 % (0.4-1.5); Oxygen Device NC; Oxygen Saturation ABG 93.3; PO2 ABG 64.8 mmHg (80.0-100.0); Potassium Level - ABG 3.3 mmol/L (3.5-5.0); Total Hemoglobin 10.2 g/dL (12-16)
[2020-10-30] MEDS: budesonide 0.5 mg/2 mL Neb INHALATION (08:27)
--- NOTE | 2020-10-30 08:39 | FL_ITS ---
WS: [id number] Modified barium swallow, 10/30/2020 Clinical Data: Other dysphagia Comparison: None. Fluoroscopy time: 3.9 minutes. Findings: The patient exhibited premature status of spillage from the oral cavity with difficulty in clearing t he oral cavity. There is no aspiration or penetration. There was vallecular residue which did clear w ith multiple swallows. There is decreased pharyngeal and laryngeal peristalsis. There was effort in s wallowing. FL/FL barium swallow modifd [id number] Impression: 1. Premature spillage from the oral cavity with difficulty in clearing. 2. Negative for aspiration or penetration. 3. Decreased pharyngeal and laryngeal peristalsis with difficulty in swallowing .
[2020-10-30] MEDS: digoxin 125 mcg Tablet PO (08:59)
[2020-10-30] MEDS: predniSONE 20 mg Tablet 40 MG PO (09:00)
[2020-10-30] MEDS: metoprolol tartrate 25 mg Tablet PO (09:02)
[2020-10-30] MEDS: sennosides-docusate Tablet 1 TAB PO ×2 (09:02→16:33)
[2020-10-30 09:40] LABS: Partial Thromboplastin Time 38.3 SECONDS (23.9-36.7)
--- NOTE | 2020-10-30 11:18 | P.PN_ITS ---
Subjective Subjective: Interval history: Overnight no acute events, blood pressure remains hypertensive, afebrile, on 4 L, early this morning she had episodes of shortness of breath, she had coarse crackles on exam, she was assessed by speech therapy, swallowing was still difficult, was changed to dysphagia pur?ed consistency with nectar thick liquids, this morning she is alert oriented x3, answers all questions appropriately, follows all commands, I advised her that we will have to place a NG tube to start some tube feedings, while we await modified barium swallow evaluation which will be on Monday, she agrees, In terms of her CODE STATUS, she tells me that she wants to remain a full code, but she only wants to have 1 more intubation, and once session of CPR if required, she is also okay with us placing a PEG tube if required Vitals/I&O/Wt Last Vital Signs Temp 97.5 F L 10/29/20 21:45 Pulse 78 10/30/20 08:59 Resp 18 10/30/20 08:27 BP 172/90 10/30/20 06:00 Pulse Ox 97 10/30/20 08:27 10/29/20 10/30/20 10/30/20 22:59 06:59 14:59 Intake Total 978.46 / 1218.46 408.533 / 1626.993 Output Total 800 / 800 Balance 978.46 / 1218.46 -391.467 / 826.993 Weight last 48 hrs Weight 60.781 kg Weight 61.05 kg Physical Exam Const: COMMON NORMALS: no acute distress and alert GENERAL APPEARANCE: frai l appearing ORIENTATION/CONSCIOUSNESS: Yes awake, Yes oriented to person, Yes oriented to place and Yes oriented to time Neck/C-Spine: COMMON NORMALS: no JVD Resp: COMMON NORMALS: normal respiratory effort, No retractions, No use of accessory muscles and clear to auscultation bilaterally AUSCULTATION: clear to auscultation bilaterally Cardio: COMMON NORMALS: no JVD, regular rate, regular rhythm, S1 normal heart sound present and S2 normal heart sound present RATE: regular rate RHYTHM: regular rhythm HEART SOUNDS: S1 normal heart sound present and S2 normal heart sound present GI: COMMON NORMALS: Normal to inspection, nondistended, normoactive bowel sounds present, Soft to palpation, non-tender and No hepatosplenomegaly present PALPATION: Yes Soft to palpation and Yes No hepatosplenomegaly present : COMMON NORMALS: Yes no CVA tenderness BLADDER/KIDNEY EXAM: Yes no CVA tenderness Back/Pelvis: COMMON NORMALS: no CVA tenderness Extremity: OTHER: Bluish discoloration of bilateral toes Neuro: SENSORIUM/ORIENTATION: Yes alert, Yes oriented to person, Yes oriented to place and Yes oriented to time Urinary Catheter Management^: Conn: Cath Placed During This Visit: yes Reason for Continuing Indwelling Catheter: Accurate Measurement of Urinary Output in Critically Ill Patients Urinary Catheter Date of Insertion: 10/11/20 Urinary Catheter Time of Insertion: 23:00 Data : 10/30/20 03:37 10/30/20 03:37 Micro: Microbiology 10/25/20 03:25 Blood Culture - Final Blood NO GROWTH AFTER 5 DAYS 10/25/20 03:25 Blood Culture - Final Blood NO GROWTH AFTER 5 DAYS 10/26/20 12:35 Mycobacterial Smear - Preliminary Body Fluids - Bronchial 10/26/20 12:35 Fungal Smear - Preliminary Tissue 10/26/20 12:35 Gram Stain - Final Lung Left Lower Lobe Bronchoalveolar Lavage Culture - Preliminary Gram Negative Rods Yeast species 10/25/20 14:45 Gram Stain - Final Sputum - Endotracheal Tube Aspirate Sputum Culture - Preliminary Stenotrophomonas maltophilia Yeast species Yeast species#2 A&P Assessment and plan (1) Acute respiratory failure with hypoxia: Successfully extubated 10/28/2020 Currently on 3.5 L Monitor respiratory status closely, BiPAP as needed Bedside swallow eval, seen by speech, was placed on nectar thickened liquid diet Continues to have cough, worsening respiratory status, shortness of breath, wheezing on exam, concerning for recurrent aspiration For now we will place NG tube, start tube feedings, Glucerna, bolus feedings 400 cc every 6 hours, free water flushes 100 cc every 4 hours, monitor fluid overload. Modified barium swallow ordered, I was told that it cannot be performed until Monday as we do not have speech therapy Will give 1 dose of 40 mg IV Lasix Sputum cultures are positive for gram-negative rods, yeast species Working on transfer to [facility] Alternated between BiPAP and heated high flow oxygen 10/18-10/24 with FIO2 ranging from 40-70% Intubated on 10/24/2020 after progressively tiring out and developing acute respiratory failure with hypercapnia, hypoxia and respiratory acidosis There is concern for pulmonary abscess versus infarct on CT imaging of the chest performed on Monday, remains on broad-spectrum antibiotic therapy, On CT imaging of the chest patient was noted to have a left lower lobe cystic opacity, in the area that she had a ruptured diaphragm and underwent surgical intervention. No definite evidence of necrosis currently, or pulmonary infarct. However this is likely just postsurgical changes from ruptured diaphragm Plan on continuing broad-spectrum antibiotic therapy Primaxin, Zyvox, Sputum cultures do show gram-negative rods As patient's hemoglobin now 9.3, status post 1 unit PRBC, hemoglobin stable, no bloody or black stools, will start her on a heparin drip for A. 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, has been stopped on prednisone 40 mg daily for pulmonary fibrosis Hypertension, blood pressure remains elevated, start Norvasc, lisinopril Plan for today, continue aggressive pulmonary toilet, start bolus tube feedings, continue oxygen, heparin drip, monitor for bleeding, monitor respiratory status closely, continue antibiotics, working on placement to [facility], PT OT Status: Acute (2) Hypernatremia: Resolved Secondary to volume depletion and diuresis Status: Acute (3) Pulmonary fibrosis: Discussed with pulmonolgy and concern is for interstitial pulmonary fibrosis possibly from amioadarone toxicity as findings were not present about a year ago. Had been started on amioadarone in the interim as I understand it from last CT images to current. Has not been able to have a biopsy. Steriods resumed 10/22 Status: Acute (4) Septic shock: Per discussion with pulmonology and review of notes, could be a mixture of cardiogenic and infection/septic shock, with the degree of organ involvement Status: Ruled-out (5) Cardiac arrest: 10/12/2020 approximately 15 minutes rescusitation with ROSC Status: Resolved (6) Pneumonia: Present on admission, organism unknown versus progressive pulmonary fibrosis and pulmonary edema. COVID was negative on 10/11 via rapid and PCR, Sputum cultures from yeast species and gram-negative rods, will monitor for fungemia Status: Acute Qualifiers: Pneumonia type: due to unspecified organism Laterality: bilateral Lung location: unspecified part of lung Qualified Code(s): J18.9 - Pneumonia, unspecified organism (7) Acute pyelonephritis: Noted on CT imaging, organism is unknown, urine culture showing yeast species, will monitor closely for fungemia Status: Acute (8) NSTEMI (non-ST elevated myocardial infarction): Type II process from cardiac arrest suspected but she also has a history of coronary artery disease. Peak troponin 112. Status: Acute (9) Multiorgan failure: Secondary to cardiogenic shock and cardiac arrest Status: Acute (10) Thickening of wall of gallbladder: Unclear current clinical significance Status: Acute (11) Transaminitis: And other LFT elevation from shock liver, near resolution Status: Acute (12) Steroid-induced gastritis: At the time of admission, had been on steroids for inflammatory and pulmonary reasons, on PPI Status: Acute (13) Supratherapeutic international normalized ratio (INR): Was chronically on coumadin prior to admission with INR 9, and possibly as high as 16 per information reported to me. Developed DIC with initial improvement in INR but after attempted anticoagualtion resumption, INR increased again, vitamin K replacement on 10/23/2020 with now normalized INR Status: Acute (14) DIC (disseminated intravascular coagulation): without gross bleeding; secondary to cardiac arrest and subsequent multiorgan failure, lab values trending towards improvement Status: Acute (15) Lactic acidosis: Looks like this occurred around the time of the cardiac arrest. Could be secondary hypoxemia rather than indicative of septic shock. Status: Resolved (16) Hypoxic brain injury: Follows commands Suspected status post cardiac arrest with 15 minutes ACLS on 10/12. Was following simple commands, responding to questions, wanting to eat, asking for things she wanted, but remained restless at times, anxious prior to reintubation, weak but motor strength equal bilaterally, has not been up out of bed Now has been reintubated, on fentanyl and Precedex Status: Acute (17) Hx of mitral valve repair: Some records indicate history of mitral valve replacement, likely bioprosthetic, with angioplasty ring, had a transesophageal echocardiogram in 2018 Status: Inactive (18) COPD (chronic obstructive pulmonary disease): Longstanding, severe Status: Chronic Qualifiers: COPD type: unspecified COPD Qualified Code(s): J44.9 - Chronic obstructive pulmonary disease, unspecified (19) Atrial flutter: Chronic. Has been treated with amiodarone, Cardizem. Follows with Dr. Audrey calvo. On Coumadin prior to admission. Will NOT resume amiodarone due to suspected pulmonary toxicity. TSH 09/09/20 was 3.73. Most recent recommendations based on EF and rate is digoxin and metoprolol. Dig level just above therapeutic range 10/25 so doing changed to every other day. 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 Coker at the time of admission Status: Acute (23) Opacity of lung on imaging study: There is concern for pulmonary abscess versus infarct on CT imaging of the chest performed yesterday, remains on broad-spectrum antibiotic therapy, did receive 1 dose of therapeutic Lovenox last night. On CT imaging of the chest patient was noted to have a left lower lobe cystic opacity, in the area that she had a ruptured diaphragm and underwent surgical intervention. No definite evidence of necrosis currently, or pulmonary infarct. This is likely postsurgical changes, from diaphragm repair Plan on continuing broad-spectrum antibiotic therapy Primaxin, Zyvox, will consider adding antifungals for fungemia based on bronchoscopy cultures, or if fevers, or elevated leukocytosis Status: Acute Additional A&P Information Discolored toes on right foot the same, arterial and venous US of legs have been done and were unrevealing History of surgery to repair ruptured diaphragm this year in August Nutrition following CVL removed 10/23, PICC line placed 10/23 Conn due to critical care patient on intermittent diuresis and close UOP monitoring Stool softeners If diarrhea, check stool for c diff SCDs for DVT prophylaxis, heparin drip Had venous and arterial dopplers of legs 10/23 On IV PPI Referral has been sent to [facility]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 care await response from review Supportive care otherwise Full code Attestations Medical Necessity Statement*: Requires hospitalization, for acute respiratory failure, recurrent aspiration events, deconditioning, requiring transfer to [facility] Coding Level of Care Code Acute Preload Supervisor for [facility] Fwd Diagnoses Acute respiratory failure with hypoxia J96.01 Hypernatremia E87.0 Pulmonary fibrosis J84.10 Septic shock A41.9; R65.21 Cardiac arrest I46.9 Pneumonia J18.9 Pneumonia type: due to unspecified organism Laterality: bilateral Lung location: unspecified part of lung Acute pyelonephritis N10 NSTEMI (non-ST elevated myocardial infarction) I21.4 Multiorgan failure Thickening of wall of gallbladder K82.8 Transaminitis R74.01 Steroid-induced gastritis K29.60; T38.0X5A Supratherapeutic international normalized ratio (INR) R79.1 DIC (disseminated intravascular coagulation) D65 Lactic acidosis E87.2 Hypoxic brain injury G93.1 Hx of mitral valve repair Z98.890 COPD (chronic obstructive pulmonary disease) J44.9 COPD type: unspecified COPD Atrial flutter I48.92 Atrial flutter type: unspecified 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
--- NOTE | 2020-10-30 11:35 | PC.NURSE ---
Pt just returned from radiology for barium swallow. assisted back to bed.
--- NOTE | 2020-10-30 11:36 | PC.NURSE ---
Message went out to Dr. Nixon to ask if senior writer could wait on the OG/NG tube placement since the Barium swallow test was able to be done today instead of Monday as originally scheduled. Awaiting results/orders.
[2020-10-30] MEDS: pantoprazole 40 mg SDV IVP (12:11)
[2020-10-30] MEDS: amlodipine 10 mg Tablet PO (12:12)
[2020-10-30] MEDS: lisinopril 10 mg Tablet PO (12:12)
--- NOTE | 2020-10-30 12:17 | PC.NURSE ---
99%, taken down to 2 l from 3
--- NOTE | 2020-10-30 12:44 | PC.SOCIAL ---
IMM Update Pg. 2 of IMM updated and reviewed with patient who verbalized understanding. Copy provided.
--- NOTE | 2020-10-30 15:00 | PM.TDS ---
Transfer Summary Providers Date of Admission: 10/11/20 22:04 Date of Discharge: 10/30/20 Attending Provider at Admission: Leander Cardoso Attending Provider at Transfer: Can Nixon MD Primary Care Provider: JUSTIN Mccollum Anticipated Date of Transfer: Anticipated date of transfer: 10/30/20 Receiving Facility & Provider: Receiving Provider: [] Receiving facility: [] Diagnoses at Discharge Discharge Diagnosis (1) Acute respiratory failure with hypoxia: Status: Acute (2) Hypernatremia: Status: Acute (3) Pulmonary fibrosis: Status: Acute (4) Septic shock: Status: Ruled-out (5) Cardiac arrest: Status: Resolved (6) Pneumonia: Status: Acute Qualifiers: Pneumonia type: due to unspecified organism Laterality: bilateral Lung location: unspecified part of lung Qualified Code(s): J18.9 - Pneumonia, unspecified organism (7) Acute pyelonephritis: Status: Acute (8) NSTEMI (non-ST elevated myocardial infarction): Status: Acute (9) Multiorgan failure: Status: Acute (10) Thickening of wall of gallbladder: Status: Acute (11) Transaminitis: Status: Acute (12) Steroid-induced gastritis: Status: Acute (13) Supratherapeutic international normalized ratio (INR): Status: Acute (14) DIC (disseminated intravascular coagulation): Status: Acute (15) Lactic acidosis: Status: Resolved (16) Hypoxic brain injury: Status: Acute (17) Hx of mitral valve repair: Status: Inactive (18) COPD (chronic obstructive pulmonary disease): Status: Chronic Qualifiers: COPD type: unspecified COPD Qualified Code(s): J44.9 - Chronic obstructive pulmonary disease, unspecified (19) Atrial flutter: Status: Chronic Qualifiers: Atrial flutter type: unspecified Qualified Code(s): I48.92 - Unspecified atrial flutter (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 (21) Ribs, multiple fractures: Status: Acute Permanent problem details: left Qualifiers: Encounter type: sequela Fracture type: closed Laterality: left Qualified Code(s): S22.42XS - Multiple fractures of ribs, left side, sequela (22) Tongue lesion: Status: Acute (23) Opacity of lung on imaging study: Status: Acute Reason for Visit Reason for Visit: N/V; GENERAL WEAKNESS Hospital Course Hospital Course Patient has had extensive hospitalization please look at problem list below for detailed information: 65-year-old lady with history of nonobstructive CAD, PAD, toyed arthritis, on hydroxychloroquine, Lembrozent, stenting of left subclavian artery, atrial flutter, on chronic anticoagulation with warfarin, systolic and diastolic CHF, EF 28%, moderate AVR in January 2020, COPD, recently quit smoker, emphysema, HTN, HLD, history of mitral valve repair who had sustained a fall down some stairs in August with rib fractures, subsequently splenic rupture, diaphragmatic rupture, transfer to [facility] where she underwent splenectomy and repair respectively, then recently admitted at [facility] for management of atrial fibrillation with RVR, started on amiodarone, reports after hospitalization was feeling all right for about a week or somewhat more, however, subsequently again started declining health, feeling generally weak, and particular in the last 3 days, this morning also started having severe nausea, vomiting, malaise. Patient was admitted to [facility] for septic shock secondary to bilateral pyelonephritis, bilateral pneumonia, status post cardiac arrest, ROSC, episodes of V. tach, acute respiratory failure with hypoxia, acute heart failure with atrial fibrillation, multiorgan failure, acute renal failure, acute liver failure, lactic acidosis, metabolic acidosis, NSTEMI, DIC. Patient was admitted to the ICU, intubated, mechanically ventilated, received diuresis, broad-spectrum antibiotic therapy, stress dose steroids, pressor therapy, and clinically monitored. Patient clinically improved, multiorgan failure improved, she was extubated successfully 10/18/2020, however had worsening respiratory status and we intubated 10/24/2020, likely secondary to fluid overload, aspiration pneumonia, but then sent sequently extubated 10/28/2020. 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 In terms of her swallowing, please see below. For atrial fibrillation, currently on digoxin metoprolol, therapeutic Lovenox, please monitor hemoglobin closely as patient has been anemia, received required 1 unit PRBC. Patient cultures are pending, specifically fungal cultures, bronchioloalveolar lavage cultures. Please follow-up for sensitivities and identification. [facility] due to respiratory status, deconditioning, need for close respiratory monitoring. Zyvox and Primaxin should be continued for 7 days. Prednisone 40 mg daily, with a slow taper over a few months as outpatient. (1) Acute respiratory failure with hypoxia: Successfully extubated 10/28/2020 Currently on 3.5 L Monitor respiratory status closely, BiPAP as needed Bedside swallow eval, seen by speech, was placed on nectar thickened liquid diet Continues to have cough, worsening respiratory status, shortness of breath, wheezing on exam, concerning for recurrent aspiration -Modified barium swallow shows no aspiration or penetration, swallow initiation delay, main concern is pharyngeal residue in the vallecula after swallows are completed, swallow pharyngeal peristalsis is very weak Patient is day 2 from extubation For now we will place NG tube, start tube feedings, Glucerna, bolus feedings 400 cc every 6 hours, free water flushes 100 cc every 4 hours, monitor fluid overload. We will do daily swallow evaluations, recommend chin tuck, and liquid diet, then nectar thick diet, does have pain when swallowing Will give 1 dose of 40 mg IV Lasix Sputum cultures are positive for gram-negative rods, yeast species Working on transfer to [facility] Alternated between BiPAP and heated high flow oxygen 10/18-10/24 with FIO2 ranging from 40-70% Intubated on 10/24/2020 after progressively tiring out and developing acute respiratory failure with hypercapnia, hypoxia and respiratory acidosis There is concern for pulmonary abscess versus infarct on CT imaging of the chest performed on Monday, remains on broad-spectrum antibiotic therapy, On CT imaging of the chest patient was noted to have a left lower lobe cystic opacity, in the area that she had a ruptured diaphragm and underwent surgical intervention. No definite evidence of necrosis currently, or pulmonary infarct. However this is likely just postsurgical changes from ruptured diaphragm Plan on continuing broad-spectrum antibiotic therapy Primaxin, Zyvox, Sputum cultures do show gram-negative rods As patient's hemoglobin now 9.3, status post 1 unit PRBC, hemoglobin stable, no bloody or black stools, will start her on a heparin drip for A. 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, has been stopped on prednisone 40 mg daily for pulmonary fibrosis Hypertension, blood pressure remains elevated, start Norvasc, lisinopril Plan for today, continue aggressive pulmonary toilet, start bolus tube feedings, continue oxygen, heparin drip, monitor for bleeding, monitor respiratory status closely, continue antibiotics, working on placement to [facility], PT OT Status: Acute (2) Hypernatremia: Resolved Secondary to volume depletion and diuresis Status: Acute (3) Pulmonary fibrosis: Discussed with pulmonolgy and concern is for interstitial pulmonary fibrosis possibly from amioadarone toxicity as findings were not present about a year ago. Had been started on amioadarone in the interim as I understand it from last CT images to current. Has not been able to have a biopsy. Steriods resumed 10/22 Status: Acute (4) Septic shock: Per discussion with pulmonology and review of notes, could be a mixture of cardiogenic and infection/septic shock, with the degree of organ involvement Status: Ruled-out (5) Cardiac arrest: 10/12/2020 approximately 15 minutes rescusitation with ROSC Status: Resolved (6) Pneumonia: Present on admission, organism unknown versus progressive pulmonary fibrosis and pulmonary edema. COVID was negative on 10/11 via rapid and PCR, Sputum cultures from yeast species and gram-negative rods, will monitor for fungemia Status: Acute Qualifiers: Pneumonia type: due to unspecified organism Laterality: bilateral Lung location: unspecified part of lung Qualified Code(s): J18.9 - Pneumonia, unspecified organism (7) Acute pyelonephritis: Noted on CT imaging, organism is unknown, urine culture showing yeast species, will monitor closely for fungemia Status: Acute (8) NSTEMI (non-ST elevated myocardial infarction): Type II process from cardiac arrest suspected but she also has a history of coronary artery disease. Peak troponin 112. Status: Acute (9) Multiorgan failure: Secondary to cardiogenic shock and cardiac arrest Status: Acute (10) Thickening of wall of gallbladder: Unclear current clinical significance Status: Acute (11) Transaminitis: And other LFT elevation from shock liver, near resolution Status: Acute (12) Steroid-induced gastritis: At the time of admission, had been on steroids for inflammatory and pulmonary reasons, on PPI Status: Acute (13) Supratherapeutic international normalized ratio (INR): Was chronically on coumadin prior to admission with INR 9, and possibly as high as 16 per information reported to me. Developed DIC with initial improvement in INR but after attempted anticoagualtion resumption, INR increased again, vitamin K replacement on 10/23/2020 with now normalized INR Status: Acute (14) DIC (disseminated intravascular coagulation): without gross bleeding; secondary to cardiac arrest and subsequent multiorgan failure, lab values trending towards improvement Status: Acute (15) Lactic acidosis: Looks like this occurred around the time of the cardiac arrest. Could be secondary hypoxemia rather than indicative of septic shock. Status: Resolved (16) Hypoxic brain injury: Follows commands Suspected status post cardiac arrest with 15 minutes ACLS on 10/12. Was following simple commands, responding to questions, wanting to eat, asking for things she wanted, but remained restless at times, anxious prior to reintubation, weak but motor strength equal bilaterally, has not been up out of bed Now has been reintubated, on fentanyl and Precedex Status: Acute (17) Hx of mitral valve repair: Some records indicate history of mitral valve replacement, likely bioprosthetic, with angioplasty ring, had a transesophageal echocardiogram in 2018 Status: Inactive (18) COPD (chronic obstructive pulmonary disease): Longstanding, severe Status: Chronic Qualifiers: COPD type: unspecified COPD Qualified Code(s): J44.9 - Chronic obstructive pulmonary disease, unspecified (19) Atrial flutter: Chronic. Has been treated with amiodarone, Cardizem. Follows with Dr. Rizo outpatient. On Coumadin prior to admission. Will NOT resume amiodarone due to suspected pulmonary toxicity. TSH 09/09/20 was 3.73. Most recent recommendations based on EF and rate is digoxin and metoprolol. Dig level just above therapeutic range 10/25 so doing changed to every other day. 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 Coker at the time of admission Status: Acute (23) Opacity of lung on imaging study: There is concern for pulmonary abscess versus infarct on CT imaging of the chest performed yesterday, remains on broad-spectrum antibiotic therapy, did receive 1 dose of therapeutic Lovenox last night. On CT imaging of the chest patient was noted to have a left lower lobe cystic opacity, in the area that she had a ruptured diaphragm and underwent surgical intervention. No definite evidence of necrosis currently, or pulmonary infarct. This is likely postsurgical changes, from diaphragm repair Plan on continuing broad-spectrum antibiotic therapy Primaxin, Zyvox, will consider adding antifungals for fungemia based on bronchoscopy cultures, or if fevers, or elevated leukocytosis Status: Acute Additional A&P Information Discolored toes on right foot the same, arterial and venous US of legs have been done and were unrevealing History of surgery to repair ruptured diaphragm this year in August Nutrition following CVL removed 10/23, PICC line placed 10/23 Conn due to critical care patient on intermittent diuresis and close UOP monitoring Stool softeners If diarrhea, check stool for c diff SCDs for DVT prophylaxis, heparin drip Had venous and arterial dopplers of legs 10/23 On IV PPI Referral has been sent to [facility] await response from review Supportive care otherwise Full code Physical Exam Const: COMMON NORMALS: no acute distress and patient oriented x3 HENMT: COMMON NORMALS: normocephalic HEAD & SCALP: normocephalic Neck/C-Spine: COMMON NORMALS: no JVD Resp: COMMON NORMALS: normal respiratory effort, No retractions and No use of accessory muscles AUSCULTATION: crackles Cardio: COMMON NORMALS: no JVD, regular rate, regular rhythm, S1 normal heart sound present and S2 normal heart sound present RATE: regular rate RHYTHM: regular rhythm HEART SOUNDS: S1 normal heart sound present and S2 normal heart sound present GI: COMMON NORMALS: Normal to inspection, nondistended, normoactive bowel sounds present, Soft to palpation, non-tender, No hepatosplenomegaly present, no masses and no bruits PALPATION: Yes Soft to palpation and Yes No hepatosplenomegaly present Extremity: COMMON NORMALS: capillary refill normal, no clubbing, cyanosis or edema, no calf tenderness and no pedal edema Neuro: COMMON NORMALS: patient oriented x3 Psych: COMMON NORMALS: mental status grossly normal Urinary Catheter Management^: Conn: Cath Placed During This Visit: yes Reason for Continuing Indwelling Catheter: Accurate Measurement of Urinary Output in Critically Ill Patients Urinary Catheter Date of Insertion: 10/11/20 Urinary Catheter Time of Insertion: 23:00 TS Data Data Completed and Pending: Completed Studies During Hospitalization Category Date Time Status CT abdomen pelvis w con* 31533 Urge nt Cat Scan 10/11/20 14:[address] chest w con* 7 1260 Routine Cat Scan 10/25/20 09:[address] head wo con* 7 0450 Stat Cat Scan 10/11/20 19:[address] head wo con* 7 0450 Stat Cat Scan 10/14/20 08:24 Completed CXRP [XR chest 1V portable 22690] R outine Exams 10/17/20 15:47 Completed CXRP [XR chest 1V portable 85142] S tat Exams 10/23/20 09:08 Completed CXRP [XR chest 1V portable 28752] S tat Exams 10/26/20 18:45 Completed CXRP [XR chest 1V portable 73323] S tat Exams 10/27/20 09:31 Completed CXRP [XR chest 1V portable 82158] S tat Exams 10/30/20 07:34 Completed FL barium swallow modifd 33988 Rout ine Exams 10/30/20 08:39 Completed XR chest 1V ricki ble [id number] AM LABS Exams 10/12/20 04:00 Completed XR chest 1V ricki ble 12295 Routine Exams 10/13/20 07:00 Completed XR chest 1V ricki ble 36120 Routine Exams 10/14/20 07:00 Completed XR chest 1V ricki ble 62237 Routine Exams 10/15/20 07:00 Completed XR chest 1V ricki ble 98614 Routine Exams 10/16/20 07:00 Completed XR chest 1V ricki ble 69061 Routine Exams 10/18/20 07:49 Completed XR chest 1V ricki ble 26415 Routine Exams 10/19/20 07:00 Completed XR chest 1V ricki ble 56594 Routine Exams 10/27/20 07:00 Completed XR chest 1V ricki ble 76200 Routine Exams 10/27/20 20:23 Completed XR chest 1V ricki ble 91190 Stat Exams 10/11/20 09:21 Completed XR chest 1V ricki ble 57236 Stat Exams 10/11/20 22:11 Completed XR chest 1V ricki ble 12932 Stat Exams 10/21/20 06:34 Completed XR chest 1V ricki ble 79219 Stat Exams 10/23/20 01:33 Completed XR chest 1V ricki ble [id number] Stat Exams 10/25/20 02:25 Completed XR chest 1V ricki ble 16644 Stat Exams 10/28/20 02:31 [place] [id number] Rout ine Ultrasound 10/23/20 18:22 Completed CV echo complete* 23636 Urgent Ultrasound 10/12/20 03:54 [place] [id number] Routin e Ultrasound 10/18/20 07:48 [place] [id number] Routin e Ultrasound 10/23/20 18:05 Completed US liver 63422 Ur gent Ultrasound 10/12/20 17:32 Completed Pending at discharge Category Date Time Status EEG electroenceph alogram Routine Exams 10/18/20 07:46 Ordered FL barium swallow modifd 93318 Rout ine Exams 11/03/20 08:00 Ordered XR chest 1V ricki ble 42457 Routine Exams 10/31/20 07:00 Ordered Aspergillus Antig en, EIA BAL Routin e Lab 10/26/20 12:35 Received Bronchoalv Lavage Culture & GS Rout ine Lab 10/26/20 12:35 Results C Reactive Protei n AM LABS Lab 10/31/20 04:00 Ordered C Reactive Protei n AM LABS Lab 11/01/20 04:00 Ordered C Reactive Protei n AM LABS Lab 11/02/20 04:00 Ordered Complete Blood Co unt w/Auto AM LABS Lab 10/31/20 04:00 Ordered Complete Blood Co unt w/Auto AM LABS Lab 10/31/20 04:00 Ordered Complete Blood Co unt w/Auto AM LABS Lab 11/01/20 04:00 Ordered Complete Blood Co unt w/Auto AM LABS Lab 11/01/20 04:00 Ordered Complete Blood Co unt w/Auto AM LABS Lab 11/02/20 04:00 Ordered Comprehensive Met abolic Panel AM LA BS Lab 10/31/20 04:00 Ordered Comprehensive Met abolic Panel AM LA BS Lab 10/31/20 04:00 Ordered Comprehensive Met abolic Panel AM LA BS Lab 11/01/20 04:00 Ordered Comprehensive Met abolic Panel AM LA BS Lab 11/01/20 04:00 Ordered Comprehensive Met abolic Panel AM LA BS Lab 11/02/20 04:00 Ordered Fungal Culture no t HR/SK/BL Routine Lab 10/26/20 12:35 Results Immunochemical Fe marivel OCB Routine Lab 10/27/20 07:52 Uncollected Lupus Inhibitor P sincere Anticoag Rout ine Lab 10/11/20 20:34 Results Magnesium AM LABS Lab 10/31/20 04:00 Ordered Magnesium AM LABS Lab 10/31/20 04:00 Ordered Magnesium AM LABS Lab 11/01/20 04:00 Ordered Magnesium AM LABS Lab 11/01/20 04:00 Ordered Magnesium AM LABS Lab 11/02/20 04:00 Ordered Miscellaneous Rosa t Routine Lab 10/26/20 12:35 Received Mycobacteria, Cul ture w/Fluor Routi ne Lab 10/26/20 12:35 Results NT Pro B Type Nika riuretic Pept QAM Lab 10/31/20 06:00 Ordered NT Pro B Type Nika riuretic Pept QAM Lab 11/01/20 06:00 Ordered NT Pro B Type Nika riuretic Pept QAM Lab 11/02/20 06:00 Ordered PTT [Partial Thro mboplastin Time] R outine Lab 10/30/20 15:00 Ordered Phosphorus AM LAB S Lab 10/31/20 04:00 Ordered Phosphorus AM LAB S Lab 10/31/20 04:00 Ordered Phosphorus AM LAB S Lab 11/01/20 04:00 Ordered Phosphorus AM LAB S Lab 11/01/20 04:00 Ordered Phosphorus AM LAB S Lab 11/02/20 04:00 Ordered Procalcitonin AM LABS Lab 10/31/20 04:00 Ordered Procalcitonin AM LABS Lab 11/01/20 04:00 Ordered Procalcitonin AM LABS Lab 11/02/20 04:00 Ordered Sputum Culture an d Gram Stain Justinai ne Lab 10/25/20 14:45 Results Urine Culture Rou ricardo Lab 10/24/20 19:19 Results Labs from last 24 hours 10/30/20 10/30/20 10/30/20 09:15 08:20 07:50 WBC RBC Hgb Hct MCV MCH MCHC RDW Plt Count MPV Neut % (Auto) Lymph % (Auto) [place] % (Auto) Eos % (Auto) Baso % (Auto) Neut # (Auto) Lymph # (Auto) [place] # (Auto) Eos # (Auto) Baso # (Auto) Nucleated RBC % (a uto) Nucleated RBCs # APTT 38.3 H Cancelled Specimen Type Arterial Sample Site Brachial, left ABG pH 7.42 ABG pCO2 52.0 H ABG pO2 64.8 L ABG HCO3 33.6 H ABG O2 Saturation 93.3 ABG Base Excess 7.9 H Davidson Test N/a A-a O2 Gradient 16.8 H Hematocrit 31.3 L Hgb O2 Saturation 91.6 L Carboxyhemoglobin 1.2 Methemoglobin 0.6 Total Hemoglobin 10.2 L Ionized Calcium 1.3 O2 Delivery Device Nc O2 Liters/Min 4.0 FiO2 36.0 Box Lining Machine Operator ID Gd Sodium 144.0 H Potassium 3.3 L Chloride Carbon Dioxide Anion Gap BUN Creatinine GFR Calculation Glucose 108.0 Calculated Osmolal ity Calcium Phosphorus Magnesium Total Bilirubin AST ALT Alkaline Phosphata se Total Protein Albumin Globulin Aspergillus Ag (EI A) A. galactomannan A g Idx 10/30/20 10/30/20 10/30/20 03:37 03:37 02:08 WBC 11.5 H RBC 2.89 L Hgb 8.7 L Hct 27.9 L MCV 96.5 MCH 30.1 MCHC 31.2 RDW 18.2 H Plt Count 272 MPV 14.1 H Neut % (Auto) 81.7 Lymph % (Auto) 3.6 [place] % (Auto) 4.5 Eos % (Auto) 0.0 Baso % (Auto) 0.3 Neut # (Auto) 9.37 H Lymph # (Auto) 0.4 L [place] # (Auto) 0.5 Eos # (Auto) 0.0 Baso # (Auto) 0.0 Nucleated RBC % (a uto) 0.4 Nucleated RBCs # 0.1 APTT 35.1 Specimen Type Sample Site ABG pH ABG pCO2 ABG pO2 ABG HCO3 ABG O2 Saturation ABG Base Excess Davidson Test A-a O2 Gradient Hematocrit Hgb O2 Saturation Carboxyhemoglobin Methemoglobin Total Hemoglobin Ionized Calcium O2 Delivery Device O2 Liters/Min FiO2 Box Lining Machine Operator ID Sodium 140 Potassium 3.6 Chloride 104 Carbon Dioxide 31 H Anion Gap 8.6 BUN 12 Creatinine 0.6 GFR Calculation 99.7 Glucose 149 H Calculated Osmolal ity 293 Calcium 8.2 L Phosphorus 2.7 Magnesium 1.9 Total Bilirubin 0.7 AST 25 ALT 25 Alkaline Phosphata se 157 H Total Protein 5.4 L Albumin 2.2 L Globulin 3.2 Aspergillus Ag (EI A) A. galactomannan A g Idx 10/29/20 10/26/20 19:48 12:35 WBC RBC Hgb Hct MCV MCH MCHC RDW Plt Count MPV Neut % (Auto) Lymph % (Auto) [place] % (Auto) Eos % (Auto) Baso % (Auto) Neut # (Auto) Lymph # (Auto) [place] # (Auto) Eos # (Auto) Baso # (Auto) Nucleated RBC % (a uto) Nucleated RBCs # APTT 37.3 H Specimen Type Sample Site ABG pH ABG pCO2 ABG pO2 ABG HCO3 ABG O2 Saturation ABG Base Excess Davidson Test A-a O2 Gradient Hematocrit Hgb O2 Saturation Carboxyhemoglobin Methemoglobin Total Hemoglobin Ionized Calcium O2 Delivery Device O2 Liters/Min FiO2 Box Lining Machine Operator ID Sodium Potassium Chloride Carbon Dioxide Anion Gap BUN Creatinine GFR Calculation Glucose Calculated Osmolal ity Calcium Phosphorus Magnesium Total Bilirubin AST ALT Alkaline Phosphata se Total Protein Albumin Globulin Aspergillus Ag (EI A) Pending A. galactomannan A g Idx Pending Vitals: Last Vital Signs Temp 98.8 F 10/30/20 07:00 Pulse 81 10/30/20 14:47 Resp 17 10/30/20 14:41 BP 154/61 10/30/20 14:30 Pulse Ox 93 10/30/20 14:41 TS Medications Medications Home Medications ascorbate calcium (vitamin C) 500 mg tablet 1 gm PO DAILY@07 tab 08/29/19 [History Confirmed 10/11/20] INR #1 ea 03/23/20 [Rx Confirmed 10/11/20] nitroglycerin 0.4 mg sublingual tablet 0.4 mg SUBLINGUAL Q5M PRN #30 tab 04/02/20 [Rx Confirmed 10/11/20] citalopram 10 mg PO DAILY@19 06/23/20 [History Confirmed 10/11/20] hydroxychloroquine 200 mg PO BID@0700,1900 08/13/20 [History Confirmed 10/11/20] melatonin 10 mg PO BEDTIME@2200 PRN 08/13/20 [History Confirmed 10/11/20] cyclobenzaprine 10 mg tablet 10 mg PO TID PRN #30 tab 08/21/20 [Rx Confirmed 10/11/20] mupirocin 1 applic TOPICAL TID@07,12,19 08/27/20 [History Confirmed 10/11/20] albuterol sulfate 90 mcg/actuation aerosol inhaler 2 puff INHALATION QID PRN #8.5 g 09/30/20 [Rx Confirmed 10/11/20] lemborexant 5 mg tablet 5 mg PO BEDTIME@2200 #30 tab 09/30/20 [Rx Confirmed 10/11/20] Active Medications Hydrocodone Bitart/Acetaminophen (Hydrocodone-Acetaminophen 5-325 Mg Tablet) 1 tab PO Q12H PRN PRN Reason: MODERATE PAIN Last Admin: 10/30/20 01:37 Dose: 1 tab Documented by: Albuterol/Ipratropium (Ipratropium-Albuterol 3 Ml Neb) 3 ml INHALATION Q6H.RESPIRATORY [facility]REEDHAR Last Admin: 10/30/20 14:44 Dose: 3 ml Documented by: Amlodipine Besylate (Amlodipine 10 Mg Tablet) 10 mg PO Q24H [facility] Last Admin: 10/30/20 12:12 Dose: 10 mg Documented by: Budesonide (Budesonide 0.5 Mg/2 Ml Neb) 0.5 mg INHALATION BID.RESPIRATORY SREEDHAR Last Admin: 10/30/20 08:27 Dose: 0.5 mg Documented by: Dextrose (Dextrose 50% Syringe 50 Ml) 50 ml IVP PRN PRN; Protocol PRN Reason: hypoglycemia protocol Dextrose (Dextrose 50% Syringe 50 Ml) 25 ml IVP ONCE PRN; Protocol PRN Reason: hypoglycemia protocol Dextrose (Dextrose 50% Syringe 50 Ml) 50 ml IVP PRN PRN; Protocol PRN Reason: hypoglycemia protocol Digoxin (Digoxin 125 Mcg Tablet) 125 mcg PO Q48H [facility] Last Admin: 10/30/20 08:59 Dose: 125 mcg Documented by: Enoxaparin Sodium (Enoxaparin 60 Mg/0.6 Ml Syringe) 60 mg SUBCUT Q12H [facility]ED[facility] Glucagon (Glucagon 1 Mg/Ml Inj 1 Ml) 1 mg IM ONCE PRN; Protocol PRN Reason: Adult Acute Hypoglycemia Prot. Glucagon (Glucagon 1 Mg/Ml Inj 1 Ml) 1 mg IM ONCE PRN; Protocol PRN Reason: Adult Acute Hypoglycemia Prot. Linezolid (Zyvox Premix) 600 mg in 300 mls @ 300 mls/hr IV Q12H [facility]; Protocol Last Infusion: 10/30/20 03:40 Dose: Infused Documented by: Dextrose (D5w) 500 mls @ 100 mls/hr IV ONCE PRN; Protocol PRN Reason: Adult Acute Hypoglycemia Prot Imipenem/Cilastatin Sodium 500 (mg/ Sodium Chloride) 100 mls @ 200 mls/hr IV Q6H [facility]; Protocol Last Admin: 10/30/20 12:12 Dose: 200 mls/hr Documented by: Lanolin (Lanolin Oint 7 Gm) 1 applic TOPICAL PRN PRN PRN Reason: DRYNESS Lisinopril (Lisinopril 10 Mg Tablet) 10 mg PO Q12H [facility] Last Admin: 10/30/20 12:12 Dose: 10 mg Documented by: Metoprolol Tartrate (Metoprolol Tartrate 25 Mg Tablet) 25 mg PO BID@0900,2100 [facility] Last Admin: 10/30/20 09:02 Dose: 25 mg Documented by: Ondansetron HCl (Ondansetron 2 Mg/Ml Sdv 2 Ml) 4 mg IVP Q4H PRN PRN Reason: NAUSEA AND VOMITING Pantoprazole Sodium (Pantoprazole 40 Mg Sdv) 40 mg IVP Q12H [facility] Last Admin: 10/30/20 12:11 Dose: 40 mg Documented by: Prednisone (Prednisone 20 Mg Tablet) 40 mg PO DAILY [facility] Last Admin: 10/30/20 09:00 Dose: 40 mg Documented by: Senna/Docusate Sodium (Sennosides-Docusate Tablet) 1 tab PO BID [facility] Last Admin: 10/30/20 09:02 Dose: 1 tab Documented by: Sucralfate (Sucralfate 1 Gm Tablet) 1 gm PO AC&BEDTIME [facility] Last Admin: 10/30/20 12:13 Dose: 1 gm Documented by: Discharge Plan Discharge Patient Disposition: Xfer [facility] Condition: Stable Prescriptions: Continued ascorbate calcium (vitamin C) 500 mg tablet 1 gm PO DAILY@07 RF: 0 cyclobenzaprine 10 mg tablet 10 mg PO TID PRN (Reason: muscle spasm) Qty: 30 RF: 0 nitroglycerin 0.4 mg tablet, sublingual 0.4 mg SUBLINGUAL Q5M PRN (Reason: chest pain) Qty: 30 RF: 0 albuterol sulfate [ProAir HFA] 90 mcg/actuation HFA aerosol inhaler 2 puff INHALATION QID PRN (Reason: Shortness Of Breath) Qty: 8.5 RF: 5 melatonin 10 mg Tablet 10 mg PO BEDTIME@2200 PRN (Reason: Sleep) RF: 0 mupirocin 2 % ointment 1 applic topical TID@,, RF: 0 citalopram 10 mg tablet 10 mg PO DAILY@19 RF: 0 Held Dayvigo 5 mg tablet 5 mg PO BEDTIME@2200 Qty: 30 RF: 2 Hold Instructions: Doctor's Order hydroxychloroquine 200 mg tablet 200 mg PO BID@0700,1900 RF: 0 Hold Instructions: until seen by rheuamtology Discontinued tramadol 50 mg tablet 50 mg PO TID PRN (Reason: pain) Qty: 30 RF: 0 prednisone 1 mg tablet See Rx Instructions PO DAILY Qty: 200 RF: 1 ranolazine 500 mg tablet extended release 12 hr 500 mg PO Q12H Qty: 180 RF: 1 Spiriva Respimat 2.5 mcg/actuation mist See Rx Instructions .ROUTE .COMPLEX Qty: 4 RF: 5 isosorbide mononitrate 30 mg tablet extended release 24 hr 30 mg PO DAILY@07 Qty: 90 RF: 0 potassium chloride 10 mEq Tablet Extended Release 20 meq PO TID@,, RF: 0 furosemide 40 mg tablet 40 mg PO BID@, RF: 0 warfarin 2 mg tablet 2 mg PO DAILY RF: 0 Hold Instructions: Resume on 10/13/20. amiodarone [Pacerone] 200 mg tablet 200 mg PO DAILY@07 RF: 0 simvastatin 40 mg tablet 40 mg PO DAILY@19 RF: 0 Hold Instructions: Order Change lisinopril 10 mg tablet 5 mg PO DAILY@07 RF: 0 metoprolol succinate 25 mg tablet extended release 24 hr See Rx Instructions PO .COMPLEX RF: 0 No Action (DME) INR See Rx Instructions .Route .MEDSUPPLY Qty: 1 RF: 0 Discharge Orders: Discharge Order (Routine); Ordered 10/30/20 Ordered By: Can Nixon Referrals: Abimbola Chatterjee, NEUROSURGERY RESEARCH DIRECTOR [Primary Care Provider] - Discharge Diet: Advance as tolerated Discharge Activity: Increase activity as tolerated Activity Restrictions/Additional Instructions: -On Lovenox therapeutic, for atrial fibrillation, monitor hemoglobin -On Zyvox and Primaxin for pneumonia, can de-escalate in the next 24 to 48 hours -Bronchiolar lavage cultures do show gram-negative rods -Advance diet as tolerated, for now I would recommend NG tube with bolus feedings, as patient is day 2 from extubation, advanced tolerate to full liquid, then to nectar thickened -Daily dose Lasix for fluid overload and pulmonary edema Transfer Attestations Time Spent in Transfer Care*: critical care time Critical Care Time (min): 55 Status at Transfer: Cognitive status at transfer: cognitively intact, Behavioral status at transfer: cooperative, Quality Metrics Clinical Quality Measures: During this hospital stay, did patient experience: None Coding Level of Care Code Acute Photostat Operator for [facility] Fwd Diagnoses Acute respiratory failure with hypoxia J96.01 Hypernatremia E87.0 Pulmonary fibrosis J84.10 Septic shock A41.9; R65.21 Cardiac arrest I46.9 Pneumonia J18.9 Pneumonia type: due to unspecified organism Laterality: bilateral Lung location: unspecified part of lung Acute pyelonephritis N10 NSTEMI (non-ST elevated myocardial infarction) I21.4 Multiorgan failure Thickening of wall of gallbladder K82.8 Transaminitis R74.01 Steroid-induced gastritis K29.60; T38.0X5A Supratherapeutic international normalized ratio (INR) R79.1 DIC (disseminated intravascular coagulation) D65 Lactic acidosis E87.2 Hypoxic brain injury G93.1 Hx of mitral valve repair Z98.890 COPD (chronic obstructive pulmonary disease) J44.9 COPD type: unspecified COPD Atrial flutter I48.92 Atrial flutter type: unspecified 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
[2020-10-30 15:20] LABS: Partial Thromboplastin Time 45.6 SECONDS (23.9-36.7)
--- NOTE | 2020-10-30 15:46 | PC.NUTR ---
Addendum entered by Chayo Vo 10/30/20 16:00: Tube feeding consult. Recommend modify tube feeding to Glucerna 1.2, 350 ml bolus q6 hours, with 100 ml flushes q 4 hours, providing 1680 kcal, 84 g protein, and 1727 ml water. If feedings well tolerated, could consider increase with reassessment of calorie/protein needs, pending updated weights and labs. Estimated needs: 3951-4617 kcal (MSJ X 1.3-1.5), 49-73 g protein (0.8-1.2 g/kg), 1 ml/kcal fluid or per MD discretion. See full RD assessment for further details. Original Note: Tube feeding consult. Recommend modify tube feeding to Glucerna 1.2, 350 ml bolus q6 hours, with 100 ml flushes q 4 hours, providing 1680 kcal, 84 g protein, and 1727 ml water. If feedings well tolerated, could consider increase with reassessment of calorie/protein needs, pending updated weights and labs.
--- NOTE | 2020-10-30 16:11 | PC.NURSE ---
REport called to Aster HYLTON at [facility].
[2020-10-30] MEDS: enoxaparin 60 mg/0.6 mL Syringe SUBCUT (16:31)
--- NOTE | 2020-10-30 18:00 | PM.PN ---
Subjective Subjective: Interval history: Continues to feel better continues to be in sinus rhythm. Medications: Reviewed: Yes Medication Review Details: Patient remains short of breath tachypneic and tachycardic. Blood pressure is also elevated. Vitals/I&O/Wt Last Vital Signs Temp 98.8 F 10/30/20 07:00 Pulse 81 10/30/20 14:47 Resp 17 10/30/20 14:41 BP 154/61 10/30/20 14:30 Pulse Ox 93 10/30/20 14:41 10/30/20 10/30/20 10/30/20 06:59 14:59 22:59 Intake Total 408.533 / 1626.993 204 / 204 Output Total 800 / 800 Balance -391.467 / 826.993 204 / 204 Weight last 48 hrs Weight 134 lb Weight 134 lb 9.475 oz Physical Exam Narrative: EXAM NARRATIVE: GENERAL: Patient is alert, awake and oriented x3. NECK: No jugular vein distension. HEENT: No cyanosis. No icterus. No pallor. HEART: Regular S1 and S2. No murmur, rub or gallop. LUNGS: Decreased breath sound with some wheezing bilaterally. ABDOMEN: Soft, nontender and nondistended. Positive bowel sounds. No guarding, rebound or tenderness. CENTRAL NERVOUS SYSTEM: Grossly nonfocal. EXTREMITIES: Lower extremities without edema bilaterally. Urinary Catheter Management^: Conn: Cath Placed During This Visit: yes Reason for Continuing Indwelling Catheter: Accurate Measurement of Urinary Output in Critically Ill Patients Urinary Catheter Date of Insertion: 10/11/20 Urinary Catheter Time of Insertion: 23:00 Data : 10/30/20 03:37 10/30/20 03:37 Micro: Microbiology 10/26/20 12:35 Fungal Smear - Preliminary Tissue 10/26/20 12:35 Gram Stain - Final Lung Left Lower Lobe Bronchoalveolar Lavage Culture - Preliminary Stenotrophomonas maltophilia Yeast species 10/25/20 03:25 Blood Culture - Final Blood NO GROWTH AFTER 5 DAYS 10/25/20 03:25 Blood Culture - Final Blood NO GROWTH AFTER 5 DAYS 10/26/20 12:35 Mycobacterial Smear - Preliminary Body Fluids - Bronchial A&P Assessment and plan (1) Acute respiratory failure with hypoxia: Status: Acute (2) Cardiac arrest: Status: Resolved (3) Multiorgan failure: Status: Acute (4) Atrial flutter: Status: Chronic Qualifiers: Atrial flutter type: unspecified Qualified Code(s): I48.92 - Unspecified atrial flutter (5) CHF (congestive heart failure): Status: Acute Qualifiers: Heart failure chronicity: acute on chronic Heart failure type: diastolic Qualified Code(s): I50.33 - Acute on chronic diastolic (congestive) heart failure (6) Septic shock: Status: Ruled-out (7) DIC (disseminated intravascular coagulation): Status: Acute Continues to progress every day remains in sinus rhythm continue current regimen. Attestations Medical Necessity Statement*: Patient require continuation hospitalization for above defined care. Coding Level of Care Code Established Pt Acute Chop Saw Operator for [place] Fwd Patient Type Established History Expanded Problem Focused Exam Expanded Problem Focused Medical Decision Making Moderate Complexity Diagnoses Acute respiratory failure with hypoxia J96.01 Cardiac arrest I46.9 Multiorgan failure Atrial flutter I48.92 Atrial flutter type: unspecified CHF (congestive heart failure) I50.33 Heart failure chronicity: acute on chronic Heart failure type: diastolic Septic shock A41.9; R65.21 DIC (disseminated intravascular coagulation) D65
[2020-10-30] MEDS: sodium chloride 0.9% 1,000 ML 30 ML IV (20:17)
--- NOTE | 2020-10-30 20:23 | PC.NURSE ---
EMS Left with patient heading to [facility], Family notified
--- NOTE | 2020-10-30 20:27 | PC.NURSE ---
Patient refused NG tube for ordered feedings
[2020-10-31 21:47] LABS: Aspergillus AG,EIA DETECTED; Aspergillus AG,EIA, Index 2.39
--- NOTE | 2020-11-11 11:18 | P.PN_ITS ---
Subjective Medications: Reviewed: Yes Medication Review Details: Antibiotics: [] Anticoagulants: [] IV medicaitons of note: [] Vitals/I&O/Wt Last Vital Signs Temp 98.6 F 10/30/20 20:21 Pulse 73 10/30/20 20:21 Resp 15 10/30/20 20:21 BP 146/68 10/30/20 20:21 Pulse Ox 98 10/30/20 20:21 Physical Exam Narrative: EXAM NARRATIVE: Constitutional: [] HEENT: [] Respiratory: [] Cardiovascular: [] Abdomen: [] Extremities: [] Neuro: [] Other: [] Urinary Catheter Management^: Conn: Cath Placed During This Visit: no Data : 10/30/20 03:37 10/30/20 03:37 Micro: Microbiology 10/26/20 12:35 Mycobacterial Smear - Preliminary Body Fluids - Bronchial A&P Additional A&P Information Pending/ordered tests to follow:[] Lines/tubes: [] DVT prophylaxis: [] Plans, findings and concerns discussed with [] and they were given an opportunity to ask questions Anticipated Disposition: [] Code Status: [] Attestations 2 Medical Necessity Statement*: Requires ongoing inpatient management for []. Coding Level of Care Code Acute Fence Repairman for [place] [facility]
--- NOTE | 2020-11-16 09:14 | PC.SOCIAL ---
Dr Kelly asked that the culture results be sent that have returned to [facility] where patient was transferred. Called [facility] and Spoke to nurse Zuleika. She indicates patient is still at facility. Requests results be sent to [phone] to her attention and she will review with provider. Faxed to this number with confirmation that fax was sent successfully. Included:Bronchoalveolar Lavage Culture, Sputum Culture, Urine Culture, and blood culture collected on 10/20/20 which they probably already have. No further needs voiced by provider or nurse To.
== END 2020-10-30 08:45 | DRG 207 ==
LOC: ER 15:18 → MEDSURG 18:27 → ICU 22:03
PROVIDERS: Hospitalist; Internal Medicine; Internal Medicine Critical Care Medicine; Admitting Provider Internal Medicine; Emergency Provider Family Medicine; PCP Nurse Practitioner Family; Visit Provider Family Medicine
PROC: 0BJ08ZZ Inspection of Tracheobronchial Tree, Via Natural or Artificial Opening Endoscopic (ICD-10-PCS; CPT 31622; principal; 2020-10-26 12:00)
DX: J18.9 Pneumonia, unspecified organism (principal); A41.9 Sepsis, unspecified organism; I50.33 Acute on chronic diastolic (congestive) heart failure; I46.9 Cardiac arrest, cause unspecified; J96.22 Acute and chronic respiratory failure with hypercapnia; J96.21 Acute and chronic respiratory failure with hypoxia; R57.0 Cardiogenic shock; K72.00 Acute and subacute hepatic failure without coma; I21.A1 Myocardial infarction type 2; D65 Disseminated intravascular coagulation [defibrination syndrome]; I48.92 Unspecified atrial flutter; E87.1 Hypo-osmolality and hyponatremia; E87.4 Mixed disorder of acid-base balance; N10 Acute pyelonephritis; N17.9 Acute kidney failure, unspecified; G93.1 Anoxic brain damage, not elsewhere classified; N39.0 Urinary tract infection, site not specified; I25.10 Atherosclerotic heart disease of native coronary artery without angina pectoris; Z98.61 Coronary angioplasty status; I73.9 Peripheral vascular disease, unspecified; Z95.820 Peripheral vascular angioplasty status with implants and grafts; I11.0 Hypertensive heart disease with heart failure; J43.2 Centrilobular emphysema; Z87.891 Personal history of nicotine dependence; E78.5 Hyperlipidemia, unspecified; Z90.81 Acquired absence of spleen; I48.91 Unspecified atrial fibrillation; K80.20 Calculus of gallbladder without cholecystitis without obstruction; R23.0 Cyanosis; M06.9 Rheumatoid arthritis, unspecified; F32.9 Major depressive disorder, single episode, unspecified; S22.42XD Multiple fractures of ribs, left side, subsequent encounter for fracture with routine healing; W19.XXXD Unspecified fall, subsequent encounter; M81.0 Age-related osteoporosis without current pathological fracture; E86.0 Dehydration; K14.9 Disease of tongue, unspecified; R23.1 Pallor; J84.10 Pulmonary fibrosis, unspecified; T38.0X5A Adverse effect of glucocorticoids and synthetic analogues, initial encounter; R79.1 Abnormal coagulation profile; I44.7 Left bundle-branch block, unspecified; E87.5 Hyperkalemia; R00.0 Tachycardia, unspecified; I08.0 Rheumatic disorders of both mitral and aortic valves; I95.9 Hypotension, unspecified; I44.0 Atrioventricular block, first degree; I25.5 Ischemic cardiomyopathy; T68.XXXA Hypothermia, initial encounter; K29.00 Acute gastritis without bleeding; F41.9 Anxiety disorder, unspecified; D64.9 Anemia, unspecified; R91.8 Other nonspecific abnormal finding of lung field; Z98.890 Other specified postprocedural states
CPT/HCPCS: 31622; 31624; 36415; 36416; 36430; 36569; 36592; 36600; 51702; 70450; 71045; 71260; 74177; 74230; 76705; 80048; 80051; 80053; 80162; 80202; 80306; 81001; 82247; 82248; 82330; 82550; 82570; 82728; 82803; 82805; 82962; 83036; 83605; 83690; 83735; 83880; 83935; 84100; 84132; 84145; 84300; 84478; 84484; 84550; 85007; 85014; 85018; 85025; 85027; 85362; 85378; 85384; 85610; 85613; 85730; 86140; 86146; 86147; 86850; 86900; 86920; 86927; 87015; 87040; 87070; 87077; 87086; 87102; 87106; 87116; 87186; 87205; 87206; 87305; 87426; 87635; 87641; 87801; 92507; 92523; 92526; 92610; 92611; 93005; 93306; 93925; 93970; 94002; 94003; 94640; 94660; 94664; 94667; 94668; 94799; 96365; 96372; 96375; 96376; 97110; 97162; 97167; 97530; 97535; 99291; A4570; C1751; C9113; G0378; J0171; J0282; J0610; J0696; J0743; J1160; J1250; J1644; J1650; J1720; J1815; J1940; J1953; J2020; J2060; J2250; J2270; J2405; J2543; J2920; J2930; J3010; J3370; J3430; J3475; J3480; J3490; J3535; J7030; J7040; J7050; J7060; J7512; J7608; J7611; J7626; P9016; P9017; Q9967

== ENCOUNTER → 2020-12-23 12:24 | Outpatient (BNVA) | payer MEDICARE, MEDICAID, SELFPAY | PROVIDERS: PCP Nurse Practitioner Family; Visit Provider Nurse Practitioner Family | DX: R19.7 Diarrhea, unspecified (principal) | CPT/HCPCS: 87493; 87506 ==

== ENCOUNTER → 2020-12-24 17:10 | Outpatient (BNVA) | payer MEDICARE, MEDICAID, SELFPAY | PROVIDERS: PCP Nurse Practitioner Family; Visit Provider Nurse Practitioner Family | DX: E78.5 Hyperlipidemia, unspecified (principal); J44.9 Chronic obstructive pulmonary disease, unspecified; I50.33 Acute on chronic diastolic (congestive) heart failure; Z09 Encounter for follow-up examination after completed treatment for conditions other than malignant neoplasm; R53.1 Weakness; R63.0 Anorexia; A04.5 Campylobacter enteritis | CPT/HCPCS: 80053; 80061; 84443; 85025 ==

== ENCOUNTER 2021-01-26 19:43 | Emergency (ER) | payer MEDICARE, MEDICAID, SELFPAY ==
[2021-01-26] VITALS (7 sets, daily range): BP systolic 118–162; BP diastolic 56–92; PULSE 80–115; RESP 16–23; TEMP 36.9; O2SAT 95–98; BMI 17.8
--- NOTE | 2021-01-26 19:56 | XRR_ITS ---
PROCEDURE INFORMATION: Exam: XR Chest Exam date and time: 01/26/2021 7:56 PM Age: 65 years old Clinical indication: Pain; Cough; Left-sided; Prior surgery; Surgery type: Open heart, hernia, spleen TECHNIQUE: Imaging protocol: XR of the chest. Views: 1 view. COMPARISON: CR XR chest 1V portable [id number] 10/30/2020 7:46 AM FINDINGS: Tubes, catheters and devices: Sternotomy wires with a aortic valve prosthesis. Lungs: Mild pulmonary vascular congestion. Pleural spaces: Small bilateral pleural effusions. Heart/Mediastinum: Cardiomegaly. Bones/joints: Unremarkable. XR/XR chest 1V portable [id number] IMPRESSION: 1. Small bilateral pleural effusions. 2. Cardiomegaly. 3. Mild pulmonary vascular congestion.
--- NOTE | 2021-01-26 19:57 | W.ED.CHESTPA ---
HPI - Chest Pain General: Chief Complaint: Chest Pain Stated Complaint: CP Time Seen by Provider: 01/26/21 19:49 History of Present Illness: HPI narrative: This patient is a 65-year-old female with a history of poor memory. Patient states she had a recent trauma where she was in the hospital and rehab for over 3 months. At that time she suffered a fall breaking several ribs and lacerating her spleen. Patient does have a PEG tube in place. Patient states that for the past days she has been fatigued and lack of energy. Patient states that she just wanted to come get evaluated to make sure nothing major was going on. EKG at the bedside showed atrial fibrillation with rapid ventricular response heart rate 112. Patient states that she takes digoxin for her atrial fibrillation and she takes that medication in the evening. According to medical records patient does take 125 mcg of digoxin daily in the evenings. Patient states that she has not had any Covid vaccine and had denies any Covid type symptoms. [place] is wanted to make sure everything was okay. Will do medical evaluation treat as needed Pertinent past history: coronary artery disease Timing of current episode: episodic Prior episodes: Yes Associated symptoms: Deny abdominal pain, dyspnea, fever(s), nausea, palpitations or vomiting Review of Systems General: Reports: 10 or more systems reviewed and unremarkable except in HPI and below Const: Reports: fatigue; Denies: fever(s), chills or body aches Eyes: Denies: change in vision or blurry vision ENMT: Denies: throat pain, hoarseness or mouth pain Card: Denies: chest pain, palpitations, irregular heart rhythm, edema, swelling of feet/ankles or lightheadedness Resp: Denies: dyspnea, productive cough, non-productive cough, wheezing or pain on inspiration GI: Denies: abdominal pain, nausea or vomiting : Denies: flank pain, difficulty voiding, dysuria, urinary frequency, urinary urgency or urinary hesitancy Musc: Denies: neck pain, back pain, extremity pain, extremity swelling, joint pain, joint swelling, joint redness, joint warmth or limited range of motion Skin/Breast: Denies: rash, pruritus, erythema or skin tenderness Neuro: Denies: headache(s), numbness in extremities or weakness in extremities Psych: Denies: anxiety or depression PFSH ED PFSH: Medical History Anticoagulated on warfarin ASHD (arteriosclerotic heart disease) Atrial flutter CHF (congestive heart failure) COPD (chronic obstructive pulmonary disease) Depression Emphysema lung Hyperlipidemia Hypertension Osteoporosis Polymyalgia rheumatica PVD (peripheral vascular disease) left subclavian stenting Rheumatoid arthritis Surgical History Diaphragm, rupture (~08/2020) repaired H/O splenectomy (~08/2020) Hx of coronary angioplasty Hx of hysterectomy Hx of mitral valve repair Hx of sinus surgery Hx of tonsillectomy Status post mitral valve replacement versus repair Family History Family/Other Diabetes Cancer Heart disease Katja-Danlos syndrome type VIII Social History Smoking and tobacco status: former smoker Second hand smoke exposure: No Alcohol intake: never Lives independently: Yes Household members: other Details: Son Marital status: / Current occupational status: retired History of recent travel: No Current gender identity: Female Physical Exam Const: COMMON NORMALS: no acute distress, average body habitus, patient oriented x3, no limitations, healthy appearing, alert and well nourished HENMT: COMMON NORMALS: normocephalic, atraumatic, hearing grossly normal bilaterally, external ears normal, EAC's normal, TM's normal bilaterally, Normal external nose present, Normal nasal mucous membranes and turbinates present, moist oral mucous membranes, oropharynx normal, dentition normal and gingiva normal HEAD & SCALP: normocephalic and atraumatic NOSE: Normal external nose present and Normal nasal mucous membranes and turbinates present EXTERNAL EAR: Yes external ears normal EXTERNAL AUDITORY CANAL: EAC's normal TYMPANIC MEMBRANE: TM's normal bilaterally Neck/C-Spine: COMMON NORMALS: full ROM, no lymphadenopathy, supple, no meningeal signs, no JVD, Thyroid normal and No carotid bruits THYROID: Thyroid normal Chest: COMMONS NORMALS: normal inspection of the chest, normal palpation of entire chest wall, normal inspection of the breasts and normal palpation of the breasts Breast/axilla inspection: Yes normal inspection of the breasts BREAST/AXILLA PALPATION: Yes normal palpation of the breasts Resp: COMMON NORMALS: normal respiratory effort, No retractions, No use of accessory muscles, clear to auscultation bilaterally and percussion normal AUSCULTATION: clear to auscultation bilaterally PERCUSSION: percussion normal Cardio: COMMON NORMALS: no JVD, S1 normal heart sound present, S2 normal heart sound present, No gallops present (Cardio), No clicks present (Cardio), No murmurs present (Cardio), No rub (Cardio) and Peripheral pulses 2+ throughout RATE: tachycardic RHYTHM: abnormal rhythm (Atrial fibrillation with RVR heart rate 112) irregularly irregular HEART SOUNDS: S1 normal heart sound present and S2 normal heart sound present PERIPHERAL PULSES: Peripheral pulses 2+ throughout GI: COMMON NORMALS: Normal to inspection, nondistended, normoactive bowel sounds present, Soft to palpation, non-tender, No hepatosplenomegaly present, no masses and no bruits PALPATION: Yes Soft to palpation and Yes No hepatosplenomegaly present Back/Pelvis: COMMON NORMALS: thoracic and lumbar spine normal to inspection, no thoracic nor lumbar tenderness, thoraco-lumbar ROM normal and straight leg raise negative bilaterally Extremity: COMMON NORMALS: normal to inspection, full ROM, capillary refill normal, no joint enlargement, no clubbing, cyanosis or edema, no calf tenderness and no pedal edema Neuro: COMMON NORMALS: patient oriented x3 SENSORIUM/ORIENTATION: Yes alert MENINGEAL SIGNS: Yes no meningeal signs Course Reevaluation(s): Reevaluation #1: Patient states she is much improved after IV fluids and her nighttime dose of the digoxin. Did discuss at length with patient about her labs. I did offer the patient further observation in the hospital patient is declined and wishes to be discharged home. Patient states the way she was feeling prior to her coming to the hospital is all resolved. I did discuss at length with patient about options. Patient will follow up with her primary care physician in the next 2 to 3 days. Patient is to continue all home medications. Patient be discharged home per her request Time: 22:58 Vital Signs: Vital signs: Vital Signs Temperature 98.5 F 01/26/21 21:15 Pulse Rate 90 01/26/21 22:31 Respiratory Rate 23 H 01/26/21 22:31 Blood Pressure 137/71 01/26/21 22:31 Pulse Oximetry 95 01/26/21 22:31 MDM - Chest Pain MDM Narrative: Medical decision making narrative: This patient is a 65-year-old female with a history of poor memory. Patient states she had a recent trauma where she was in the hospital and rehab for over 3 months. At that time she suffered a fall breaking several ribs and lacerating her spleen. Patient does have a PEG tube in place. Patient states that for the past days she has been fatigued and lack of energy. Patient states that she just wanted to come get evaluated to make sure nothing major was going on. EKG at the bedside showed atrial fibrillation with rapid ventricular response heart rate 112. Patient states that she takes digoxin for her atrial fibrillation and she takes that medication in the evening. According to medical records patient does take 125 mcg of digoxin daily in the evenings. Patient states that she has not had any Covid vaccine and had denies any Covid type symptoms. [place] and is wanted to make sure everything was okay. Will do medical evaluation treat as needed Patient states she is much improved after IV fluids and her nighttime dose of the digoxin. Did discuss at length with patient about her labs. I did offer the patient further observation in the hospital patient is declined and wishes to be discharged home. Patient states the way she was feeling prior to her coming to the hospital is all resolved. I did discuss at length with patient about options. Patient will follow up with her primary care physician in the next 2 to 3 days. Patient is to continue all home medications. Patient be discharged home per her request Medical Records: Attestation: I reviewed the patient's medical records. Lab Data: Attestation: I reviewed the patient's lab results. Labs: Lab Results 01/26/21 01/26/21 01/26/21 Range/Units 20:03 20:03 20:03 WBC 11.2 H (4.0-10.0) 10^3/ uL RBC 3.48 L (4.1-5.3) 10^6/u L Hgb 11.0 L (11.5-15.3) g/dL Hct 33.7 L (37.0-47.0) % MCV 96.8 (81-99) fL MCH 31.6 (28.0-34.0) pg MCHC 32.6 (30.0-36.0) g/dL RDW 16.3 H (12.1-15.1) % Plt Count 390 (130-400) 10^3/c mm MPV 11.5 H (7.4-10.4) fL Neut % (Auto) 60.5 % Lymph % (Auto) 25.5 % Tyler % (Auto) 11.1 % Eos % (Auto) 2.1 % Baso % (Auto) 0.6 % Neut # (Auto) 6.78 (1.8-7.7) 10^3/u L Lymph # (Auto) 2.9 (0.8-4.8) 10^3/u L Tyler # (Auto) 1.2 H (0.2-0.9) 10^3/u L Eos # (Auto) 0.2 (0.0-0.8) 10^3/u L Baso # (Auto) 0.1 (0.0-0.1) 10^3/u L Nucleated RBC % (a uto) 0 % Nucleated RBCs # 0.0 /100WBC PT 18.10 H (12.1-14.9) SECO NDS INR 1.46 H (0.8-1.2) APTT 32.1 (23.9-36.7) SECO NDS Sodium 137 (136-145) mmol/L Potassium 3.2 L (3.5-5.1) mmol/L Chloride 105 (98-107) mmol/L Carbon Dioxide 19 L (22-29) mmol/L Anion Gap 16.2 (5-19) BUN 8 (8-23) mg/dL Creatinine 0.6 (0.5-0.9) mg/dL GFR Calculation 99.7 (90-130) mL/min Glucose 86 (65-115) mg/dL Calculated Osmolal ity 282 L (285-295) mOsm/k g Calcium 9.0 (8.5-10.5) mg/dL Total Bilirubin 0.2 (0.15-1.2) mg/dL AST 13 (0-32) U/L ALT 7 (0-33) U/L Alkaline Phosphata se 89 (35-105) IU/L Troponin T Gen 5 n g/L (0-10) ng/L Troponin T 120 Min [place] (0-10) ng/L Delta Troponin T (0-10) ABS# NT-Pro-B Natriuret Pep 2883 H (0-125) pg/mL Total Protein 6.9 (6.6-8.7) g/dL Albumin 3.3 L (3.5-5.2) g/dL Globulin 3.6 (1.3-4.6) g/dL Urine Color (Yellow) Urine Appearance (CLEAR) Urine pH (5-7) Ur Specific Gravit y (1.005-1.030) Urine Protein (Negative) Urine Glucose (UA) (Normal) Urine Ketones (Negative) Urine Blood (Negative) Urine Nitrate (Negative) Urine Bilirubin (Negative) Urine Urobilinogen (Negative) mg/dL Ur Leukocyte Arin ase (Negative) SARS-CoV-2 Ag (Rap id) (Negative) 01/26/21 01/26/21 01/26/21 Range/Units 20:03 20:12 20:22 WBC (4.0-10.0) 10^3/ uL RBC (4.1-5.3) 10^6/u L Hgb (11.5-15.3) g/dL Hct (37.0-47.0) % MCV (81-99) fL MCH (28.0-34.0) pg MCHC (30.0-36.0) g/dL RDW (12.1-15.1) % Plt Count (130-400) 10^3/c mm MPV (7.4-10.4) fL Neut % (Auto) % Lymph % (Auto) % Tyler % (Auto) % Eos % (Auto) % Baso % (Auto) % Neut # (Auto) (1.8-7.7) 10^3/u L Lymph # (Auto) (0.8-4.8) 10^3/u L Tyler # (Auto) (0.2-0.9) 10^3/u L Eos # (Auto) (0.0-0.8) 10^3/u L Baso # (Auto) (0.0-0.1) 10^3/u L Nucleated RBC % (a uto) % Nucleated RBCs # /100WBC PT (12.1-14.9) SECO NDS INR (0.8-1.2) APTT (23.9-36.7) SECO NDS Sodium (136-145) mmol/L Potassium (3.5-5.1) mmol/L Chloride (98-107) mmol/L Carbon Dioxide (22-29) mmol/L Anion Gap (5-19) BUN (8-23) mg/dL Creatinine (0.5-0.9) mg/dL GFR Calculation (90-130) mL/min Glucose (65-115) mg/dL Calculated Osmolal ity (285-295) mOsm/k g Calcium (8.5-10.5) mg/dL Total Bilirubin (0.15-1.2) mg/dL AST (0-32) U/L ALT (0-33) U/L Alkaline Phosphata se (35-105) IU/L Troponin T Gen 5 n g/L 66 H (0-10) ng/L Troponin T 120 Min [place] (0-10) ng/L Delta Troponin T (0-10) ABS# NT-Pro-B Natriuret Pep (0-125) pg/mL Total Protein (6.6-8.7) g/dL Albumin (3.5-5.2) g/dL Globulin (1.3-4.6) g/dL Urine Color Yellow (Yellow) Urine Appearance Clear (CLEAR) Urine pH 5 (5-7) Ur Specific Gravit y 1.015 (1.005-1.030) Urine Protein Neg (Negative) Urine Glucose (UA) Norm (Normal) Urine Ketones 1+ H (Negative) Urine Blood Neg (Negative) Urine Nitrate Negative (Negative) Urine Bilirubin Neg (Negative) Urine Urobilinogen Norm (Negative) mg/dL Ur Leukocyte Arin ase Negative (Negative) SARS-CoV-2 Ag (Rap id) Negative (Negative) 01/26/21 Range/Units 22:02 WBC (4.0-10.0) 10^3/ uL RBC (4.1-5.3) 10^6/u L Hgb (11.5-15.3) g/dL Hct (37.0-47.0) % MCV (81-99) fL MCH (28.0-34.0) pg MCHC (30.0-36.0) g/dL RDW (12.1-15.1) % Plt Count (130-400) 10^3/c mm MPV (7.4-10.4) fL Neut % (Auto) % Lymph % (Auto) % Tyler % (Auto) % Eos % (Auto) % Baso % (Auto) % Neut # (Auto) (1.8-7.7) 10^3/u L Lymph # (Auto) (0.8-4.8) 10^3/u L Tyler # (Auto) (0.2-0.9) 10^3/u L Eos # (Auto) (0.0-0.8) 10^3/u L Baso # (Auto) (0.0-0.1) 10^3/u L Nucleated RBC % (a uto) % Nucleated RBCs # /100WBC PT (12.1-14.9) SECO NDS INR (0.8-1.2) APTT (23.9-36.7) SECO NDS Sodium (136-145) mmol/L Potassium (3.5-5.1) mmol/L Chloride (98-107) mmol/L Carbon Dioxide (22-29) mmol/L Anion Gap (5-19) BUN (8-23) mg/dL Creatinine (0.5-0.9) mg/dL GFR Calculation (90-130) mL/min Glucose (65-115) mg/dL Calculated Osmolal ity (285-295) mOsm/k g Calcium (8.5-10.5) mg/dL Total Bilirubin (0.15-1.2) mg/dL AST (0-32) U/L ALT (0-33) U/L Alkaline Phosphata se (35-105) IU/L Troponin T Gen 5 n g/L (0-10) ng/L Troponin T 120 Min [place] 68.94 H (0-10) ng/L Delta Troponin T 2.94 (0-10) ABS# NT-Pro-B Natriuret Pep (0-125) pg/mL Total Protein (6.6-8.7) g/dL Albumin (3.5-5.2) g/dL Globulin (1.3-4.6) g/dL Urine Color (Yellow) Urine Appearance (CLEAR) Urine pH (5-7) Ur Specific Gravit y (1.005-1.030) Urine Protein (Negative) Urine Glucose (UA) (Normal) Urine Ketones (Negative) Urine Blood (Negative) Urine Nitrate (Negative) Urine Bilirubin (Negative) Urine Urobilinogen (Negative) mg/dL Ur Leukocyte Arin ase (Negative) SARS-CoV-2 Ag (Rap id) (Negative) Imaging Data^: CXR: Attestation: I personally reviewed and interpreted this imaging study as follows: Radiologist's impression: FINDINGS: Tubes, catheters and devices: Sternotomy wires with a aortic valve prosthesis. Lungs: Mild pulmonary vascular congestion. Pleural spaces: Small bilateral pleural effusions. Heart/Mediastinum: Cardiomegaly. Bones/joints: Unremarkable. XR/XR chest 1V portable [id number] IMPRESSION: 1. Small bilateral pleural effusions. 2. Cardiomegaly. 3. Mild pulmonary vascular congestion. EKG Data^: EKG 1: Attestation: I personally reviewed and interpreted this EKG as follows: EKG interpretation date: 01/26/21 EKG interpretation time: 19:45 Prior EKG tracings: not available for review Interpretation: Atrial fibrillation with RVR heart rate 112. Intermediate axis. Interventricular conduction delay. Chronic abnormal EKG. EKG 2: Attestation: I personally reviewed and interpreted this EKG as follows: EKG interpretation date: 01/26/21 EKG interpretation time: 21:46 Prior EKG tracings: available for review Interpretation: After digoxin. Sinus rhythm with a first-degree AV block heart rate 86 intermediate axis left bundle branch block abnormal EKG Discharge Plan Discharge Patient Disposition: Home Clinical Impression: Heart palpitations, Chronic malaise, Atrial fibrillation Condition: Stable Prescriptions: No Action nitroglycerin 0.4 mg tablet, sublingual 0.4 mg SUBLINGUAL Q5M PRN (Reason: chest pain) Qty: 30 RF: 0 acetaminophen 325 mg tablet 650 mg PO Q6H PRN (Reason: Pain) RF: 0 buspirone 10 mg tablet 20 mg PO TID RF: 0 cholecalciferol (vitamin D3) 10 mcg (400 unit) capsule 20 mcg PO DAILY RF: 0 sennosides-docusate sodium 8.6-50 mg tablet 1 tab-cap PO DAILY RF: 0 Spiriva Respimat 2.5 mcg/actuation mist 2 puff inhalation DAILY RF: 0 (DME) MD INR See Rx Instructions .Route .MEDSUPPLY Qty: 1 RF: 0 polysaccharide iron complex 150 mg iron capsule 150 mg PO DAILY Qty: 30 RF: 3 simvastatin 40 mg tablet 40 mg PO DAILY Qty: 30 RF: 3 digoxin 125 mcg (0.125 mg) tablet 125 mcg PO DAILY Qty: 30 RF: 3 trazodone 50 mg tablet 50 mg PO DAILY Qty: 30 RF: 3 pantoprazole 40 mg tablet,delayed release (DR/EC) 40 mg PO DAILY Qty: 30 RF: 3 melatonin 10 mg Tablet 10 mg PO BEDTIME@2200 PRN (Reason: Sleep) RF: 0 citalopram 10 mg tablet 20 mg PO DAILY RF: 0 warfarin 3 mg tablet See Rx Instructions .ROUTE .COMPLEX RF: 0 Discharge Orders: Discharge ED (Routine); Ordered 01/26/21 Ordered By: Davide Lockwood Referrals: Abimbola Chatterjee FNP [Primary Care Provider] - Discharge Diet: Advance as tolerated Discharge Activity: Resume usual activity Patient Instructions: Opioid Safety Activity Restrictions/Additional Instructions: Continue with all home medications as instructed. Encourage p.o. fluids. Follow-up with your primary care physician in 2 to 3 days. Return to the emergency department for symptoms fail to improve or worsen. Coding Level of Care Code ED Wall Scraper for [place] Amaya Exam Comprehensive
[2021-01-26] MEDS: sodium chloride 0.9% 500 ML IV (20:10)
[2021-01-26] MEDS: digoxin 125 mcg Tablet PO (20:10)
[2021-01-26 20:11] LABS: Basophils # 0.1 10^3/uL (0.0-0.1); Basophils % 0.6 %; Eosinophils # 0.2 10^3/uL (0.0-0.8); Eosinophils % 2.1 %; Hematocrit 33.7 % (37.0-47.0); Lymphocytes # 2.9 10^3/uL (0.8-4.8); Lymphocytes % 25.5 %; Mean Corpuscular HGB Conc 32.6 g/dL (30.0-36.0); Mean Corpuscular Hemoglobin 31.6 pg (28.0-34.0); Mean Corpuscular Volume 96.8 fL (81-99); Mean Platelet Volume 11.5 fL (7.4-10.4); Monocytes # 1.2 10^3/uL (0.2-0.9); Monocytes % 11.1 %; Neutrophils # 6.78 10^3/uL (1.8-7.7); Neutrophils % 60.5 %; Nucleated Red Blood Cells % 0 %; Platelet Count 390 10^3/cmm (130-400); Red Blood Count 3.48 10^6/uL (4.1-5.3); Red Cell Distribution Width 16.3 % (12.1-15.1); White Blood Count 11.2 10^3/uL (4.0-10.0)
[2021-01-26 20:32] LABS: Add Urine Microscopic? NO; Charge for UA Resulting for Rev
[2021-01-26 20:33] LABS: Alanine Aminotransferase 7 U/L (0-33); Albumin Level 3.3 g/dL (3.5-5.2); Alkaline Phosphatase 89 IU/L (35-105); Anion Gap 16.2 (5-19); Aspartate Amino Transferase 13 U/L (0-32); Blood Urea Nitrogen 8 mg/dL (8-23); Carbon Dioxide 19 mmol/L (22-29); Chloride 105 mmol/L (98-107); Globulin 3.6 g/dL (1.3-4.6); Glomerular Filtration Rate 99.7 mL/min (90-130); Glucose 86 mg/dL (65-115); NT Pro B Type Natriuretic Pept 2883 pg/mL (0-125); Osmolality Calculated 282 mOsm/kg (285-295); Potassium 3.2 mmol/L (3.5-5.1); Sodium 137 mmol/L (136-145); Total Bilirubin 0.2 mg/dL (0.15-1.2); Total Protein 6.9 g/dL (6.6-8.7)
[2021-01-26 20:33] LABS: Bilirubin Urine Neg (Negative); Blood Urine Neg (Negative); Glucose Urine UA Norm (Normal); Ketones Urine 1+ (Negative); Leukocyte Esterase Urine Negative (Negative); Nitrate Urine Negative (Negative); Protein Urine Neg (Negative); Specific Gravity, Urine 1.015 (1.005-1.030); Urine Appearance Clear (CLEAR); Urine Color Yellow (Yellow); Urobilinogen Urine Norm (Negative); pH Urine 5 (5-7)
[2021-01-26 20:53] LABS: INR 1.46 (0.8-1.2); Partial Thromboplastin Time 32.1 SECONDS (23.9-36.7)
[2021-01-26 20:57] LABS: SARS Covid-2 Antigen Negative (Negative)
[2021-01-26 21:21] LABS: Troponin T (5th) Once 66 ng/L (0-10)
--- NOTE | 2021-01-26 21:33 | ECG_ITS ---
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 Measurements Intervals [place] Rate: 86 P: -88 [place]: 256 QRS: -48 QRSD: 163 T: 82 QT: 403 QTc: 483 Interpretive Statements SINUS RHYTHM WITH FIRST DEGREE AV BLOCK INDETERMINATE AXIS POSSIBLE RIGHT VENTRICULAR CONDUCTION DELAY [RSR (QR) IN V1/V2] LEFT BUNDLE BRANCH BLOCK [120+ ms QRS DURATION, 80+ ms Q/S IN V1/V2, 85+ ms R IN I/aVL/V5/V6] Compared to ECG 10/20/2020 00:51:13 First degree AV block now present Indeterminate axis now present Sinus tachycardia no longer present Left-axis deviation no longer present Electronically Signed On 01-27-2021 18:33:57 CDT by Con Hdez M.D. [email or web address]
[2021-01-26] MEDS: ondansetron 2 mg/ML SDV 2 mL 4 MG IVP (21:38)
[2021-01-26 22:44] LABS: Troponin 5 2HR 68.94 ng/L (0-10)
[2021-01-26 22:45] LABS: Troponin 5 2HR Delta 2.94 ABS# (0-10)
== END 2021-01-26 23:32 | disposition home or self-care (01) ==
PROVIDERS: Emergency Provider Emergency Medicine; PCP Nurse Practitioner Family
DX: R53.81 Other malaise (principal); R00.2 Palpitations; I48.91 Unspecified atrial fibrillation; I25.10 Atherosclerotic heart disease of native coronary artery without angina pectoris; I11.0 Hypertensive heart disease with heart failure; I50.9 Heart failure, unspecified; J43.9 Emphysema, unspecified; E78.5 Hyperlipidemia, unspecified; Z87.891 Personal history of nicotine dependence; Z79.01 Long term (current) use of anticoagulants; Z93.1 Gastrostomy status
CPT/HCPCS: 36415; 71045; 80053; 81003; 83880; 84484; 85025; 85610; 85730; 87426; 93005; 96374; 99284; J2405; J7040

== ENCOUNTER → 2021-02-18 12:10 | Outpatient (BNVA) | payer MEDICARE, MEDICAID, SELFPAY | PROVIDERS: PCP Nurse Practitioner Family; Visit Provider Nurse Practitioner Family | DX: R19.7 Diarrhea, unspecified (principal) | CPT/HCPCS: 87493; 87506 ==

== ENCOUNTER → 2021-03-03 17:33 | Outpatient (BNVA) | payer MEDICARE, MEDICAID, SELFPAY | PROVIDERS: PCP Nurse Practitioner Family; Visit Provider Nurse Practitioner Family | DX: K30 Functional dyspepsia (principal); R19.7 Diarrhea, unspecified | CPT/HCPCS: 87338 ==

== ENCOUNTER → 2021-03-12 12:06 | Outpatient (BNVA) | payer MEDICARE, MEDICAID, SELFPAY | PROVIDERS: PCP Nurse Practitioner Family; Visit Provider Nurse Practitioner Family | DX: I50.33 Acute on chronic diastolic (congestive) heart failure (principal); M81.0 Age-related osteoporosis without current pathological fracture; R76.8 Other specified abnormal immunological findings in serum; M25.519 Pain in unspecified shoulder; R70.0 Elevated erythrocyte sedimentation rate; Z79.899 Other long term (current) drug therapy; E78.5 Hyperlipidemia, unspecified | CPT/HCPCS: 85025 ==

== ENCOUNTER → 2021-03-25 09:20 | Outpatient (BNVA) | payer MEDICARE, MEDICAID, SELFPAY | PROVIDERS: PCP Nurse Practitioner Family; Visit Provider Internal Medicine | DX: R76.8 Other specified abnormal immunological findings in serum (principal); R70.0 Elevated erythrocyte sedimentation rate; M81.0 Age-related osteoporosis without current pathological fracture; I50.33 Acute on chronic diastolic (congestive) heart failure; Z79.899 Other long term (current) drug therapy | CPT/HCPCS: 36415; 99214 ==